=== PATIENT | female | born 1985 | race Hispanic/Latino ===

== ENCOUNTER 2019-10-03 01:07 | Emergency (ER) | payer OTHER, SELFPAY ==
--- NOTE | ~2019-10-03 | XR_ITS ---
EXAMINATION: XR chest 2V DATE: 10/03/2019 01:38 INDICATION: Midline chest pain TECHNIQUE: PA and lateral views of the chest were obtained. COMPARISON: None FINDINGS: The lungs are clear with no focal airspace opacities, pulmonary edema, pleural effusion or pneumothor ax. The cardiomediastinal silhouette is normal. Visualized bones and soft tissues are unremarkable. IMPRESSION: 1. No acute cardiopulmonary disease. Reviewed, dictated and finalized at location A.
--- NOTE | 2019-10-03 01:09 | ECG_ITS ---
Measurements Intervals [place] Rate: 84 P: 30 [place]: 153 QRS: 35 QRSD: 108 T: -6 QT: 375 QTc: 444 Interpretive Statements SINUS RHYTHM BORDERLINE T WAVE ABNORMALITY- INFERIOR LEADS BASELINE WANDER- II, III, AVR, AVL, AVF BORDERLINE ECG Electronically Signed On 10-03-2019 7:21:05 CDT by Enrico Gutierres D.O.
[2019-10-03 01:11] VITALS: BP 151/85; PULSE 83; RESP 21; TEMP 36.8; O2SAT 100
--- NOTE | 2019-10-03 01:12 | ED.CHESTPAIN ---
HPI - Chest Pain General Chief Complaint: Chest Pain Stated Complaint: cp Time Seen by Provider: 10/03/19 01:08 Source: patient and RN notes reviewed Mode of arrival: other Limitations: no limitations History of Present Illness HPI narrative: Pt is a 34 y/o female who presents to the ED with c/o generalized chest pain that began Thursday (09/30/19). Pt states that initially her pain was on the left side of her chest and then migrated to her right side of her chest. Pt states that her pain migrated to her upper chest today. Pt describes her pain as burning. Pt denies any aggravating or alleviating factors. Pt has a hx of anxiety. She denies having a similar episode. Pt also reports nausea, but denies vomiting and dyspnea. MD complaint: chest pain Onset (ago): day(s) (3) Timing of current episode: still present Prior episodes: No Onset: during rest Pain location: other (generalized) Quality: burning Relieving factors: nothing Exacerbating factors: nothing Associated symptoms: nausea Related Data Home Medications Medication Instructions Recorded Confirmed escitalopram oxalate 20 mg tablet 20 mg PO DAILY 06/17/19 Allergies Allergy/AdvReac Type Severity Reaction Status Date / Time NSAIDS (Non-Steroidal Allergy Mild Other Verified 10/03/19 01:15 Anti-Inflamma Review of Systems Review of Systems: All systems reviewed & are unremarkable except as noted in HPI and below Cardiovascular: Cardiovascular: Reports chest pain (generalized) Respiratory: Respiratory: Denies dyspnea Gastrointestinal: Gastrointestinal: Reports nausea and Denies vomiting PMFSH Past Medical History Medical History (Updated 10/03/19 @ 02:09 by Bo Marrero MD) Anemia Anxiety Arthritis delivery delivered x4 Hyperthyroidism Morbid obesity Surgical History Surgical History History of sleeve gastrectomy Social History Social History Smoking status: Never smoker Second hand tobacco smoke exposure: No Alcohol intake: never Substance use: never Substance use type: does not use Gender identity (if verbalized by the patient): Female Exam Const: General: healthy appearing and no acute distress Nutritional Appearance: obese HENMT: Mouth: Yes lip normal and Yes moist mucous membranes Eyes: Conjunctivae: conjunctivae normal Pupils: Equal, round and reactive pupils present Chest: Chest palpation & inspection: no tenderness Resp: Effort & Inspection: normal respiratory effort Auscultation: clear to auscultation bilaterally Cardio: Rate: abnormal rate Rhythm: abnormal rhythm Heart sounds: no murmurs GI: GI Palp: Yes Soft to palpation and No Tenderness to palpation present (GI) Auscultation: normal bowel sounds Back/Spine/Pelvis: Back: other (full ROM) Skin: General skin exam: normal color, dry skin and other (warm) Neuro: General: patient oriented x3 and other (alert) Speech: normal speech Extrem: General: full ROM Psych: Mental Status: mental status grossly normal Affect: Anxious affect present Course Vital Signs Vital signs: Vital Signs Temperature 36.8 C 10/03/19 01:11 Pulse Rate 83 10/03/19 01:11 Respiratory Rate 21 H 10/03/19 01:11 Blood Pressure 151/85 H 10/03/19 01:11 Pulse Oximetry 100 10/03/19 01:11 Temperature 36.8 C 10/03/19 01:11 Pulse Rate 73 10/03/19 02:25 Respiratory Rate 20 10/03/19 02:25 Blood Pressure 116/66 10/03/19 02:25 Pulse Oximetry 100 10/03/19 02:25 MDM - Chest Pain MDM Narrative Medical decision making narrative: Pain is burning in nature. Not exertional. Worse with recumbent position. No SOB. Seems most consistent with GI source. Differential Diagnosis Differential diagnosis: Likely atypical chest pain and other (GERD, indigestion, anxiety) Medical Records Data Attestation: I reviewed the patient's medical recor
[2019-10-03] MEDS: BELLADONNA ALK/PHENOB ELIX 10 ML, MAG HYDROX/ALUMINUM HYD/SIMETH 30 ML, LIDOCAINE HCL 2... PO (01:29)
[2019-10-03] MEDS: PANTOPRAZOLE SODIUM IV 40 MG VIAL IV PUSH (01:29)
[2019-10-03 01:31] VITALS: BP 125/83; PULSE 83; RESP 20; O2SAT 100
[2019-10-03 01:34] LABS: Basophils Percent Auto 0.5 % (0.2-1.2); Eosinophils Absolute Auto 0.1 K/mm3 (0-0.3); Eosinophils Percent Auto 2.1 % (0-4.4); Hematocrit 34.3 % (37.0-47.0); Hemoglobin 10.7 g/dL (12.0-15.0); Immature Granulocyte Absolute 0.02 K/mm3 (0.00-0.031); Immature Granulocyte Percent A 0.3 % (0-0.5); Lymphocytes Absolute Auto 2.79 K/mm3 (0.9-3.2); Lymphocytes Percent Auto 42.1 % (18.3-44.2); Mean Corpuscular HGB Conc 31.2 g/dl (32-36); Mean Corpuscular Volume 76.9 fl (80-100); Mean Platelet Volume 9.8 fl (7.4-10.4); Monocytes Absolute Auto 0.5 K/mm3 (0.1-0.6); Monocytes Percent Auto 7.3 % (2.6-8.5); Neutrophils Absolute Auto 3.2 K/mm3 (1.3-6.7); Neutrophils Percent Auto 47.7 % (45.5-73.1); Platelet Count Result 422 k/mm3 (150-375); Red Blood Count 4.46 M/mm3 (4.2-5.4); Red Cell Distribution Width 17.1 % (11.5-14.5); White Blood Count 6.6 K/mm3 (4.5-10.0)
[2019-10-03 01:44] LABS: Blood Urea Nitrogen 17 mg/dL (7-17); Calcium 9.4 mg/dL (8.4-10.2); Carbon Dioxide 24 mmol/L (22-30); Chloride 107 mmol/L (98-107); Estimated Glomerular Filt Rate > 60; Glucose 90 mg/dL (65-105); Sodium 138 mmol/L (137-145)
[2019-10-03 01:56] LABS: Troponin I < 0.012 ng/mL (0.000-0.034)
[2019-10-03 02:25] VITALS: BP 116/66; PULSE 73; RESP 20; O2SAT 100
== END 2019-10-03 02:26 | disposition home or self-care (01) ==
PROVIDERS: Emergency Provider Emergency Medicine; PCP Family Medicine Sports Medicine
DX: R07.89 Other chest pain (principal); F41.9 Anxiety disorder, unspecified; M19.90 Unspecified osteoarthritis, unspecified site; E05.90 Thyrotoxicosis, unspecified without thyrotoxic crisis or storm; E66.01 Morbid (severe) obesity due to excess calories; Z98.84 Bariatric surgery status; R94.31 Abnormal electrocardiogram [ECG] [EKG]
CPT/HCPCS: 36415; 71046; 80048; 84484; 85025; 93005; 96374; 99284; A9270; C9113

== ENCOUNTER 2019-11-08 13:16 | Outpatient (CLI) | payer OTHER, SELFPAY ==
--- NOTE | 2019-11-08 | ECG_ITS ---
Measurements Intervals [place] Rate: 75 P: 35 [place]: 157 QRS: 66 QRSD: 102 T: 14 QT: 387 QTc: 433 Interpretive Statements SINUS RHYTHM BASELINE ARTIFACT- II, III, AVF NORMAL ECG Electronically Signed On 11-08-2019 13:47:51 CDT by Enrico Gutierres D.O.
[2019-11-08 13:38] LABS: Basophils Absolute Auto 0.1 K/mm3 (0.0-0.1); Basophils Percent Auto 0.8 % (0.2-1.2); Eosinophils Absolute Auto 0.1 K/mm3 (0-0.3); Eosinophils Percent Auto 1.4 % (0-4.4); Hematocrit 34.9 % (37.0-47.0); Hemoglobin 10.7 g/dL (12.0-15.0); Immature Granulocyte Absolute 0.02 K/mm3 (0.00-0.031); Immature Granulocyte Percent A 0.3 % (0-0.5); Lymphocytes Absolute Auto 1.67 K/mm3 (0.9-3.2); Lymphocytes Percent Auto 26.4 % (18.3-44.2); Mean Corpuscular HGB Conc 30.7 g/dl (32-36); Mean Corpuscular Hemoglobin 23.8 pg (26-34); Mean Corpuscular Volume 77.7 fl (80-100); Mean Platelet Volume 9.8 fl (7.4-10.4); Monocytes Absolute Auto 0.5 K/mm3 (0.1-0.6); Monocytes Percent Auto 8.4 % (2.6-8.5); Neutrophils Percent Auto 62.7 % (45.5-73.1); Platelet Count Result 377 k/mm3 (150-375); Red Blood Count 4.49 M/mm3 (4.2-5.4); Red Cell Distribution Width 17.7 % (11.5-14.5); White Blood Count 6.3 K/mm3 (4.5-10.0)
[2019-11-08 13:50] LABS: Alanine Aminotransferase 23 U/L (4-35); Albumin Level 4.4 g/dL (3.5-5.1); Alkaline Phosphatase 77 U/L (38-126); Aspartate Amino Transferase 30 U/L (14-36); Bilirubin,Total 0.2 mg/dL (0.2-1.3); Blood Urea Nitrogen 12 mg/dL (7-17); Calcium 9.2 mg/dL (8.4-10.2); Carbon Dioxide 29 mmol/L (22-30); Chloride 103 mmol/L (98-107); Estimated Glomerular Filt Rate > 60; Glucose 101 mg/dL (65-105); Potassium 4.1 mmol/L (3.4-5.0); Sodium 135 mmol/L (137-145)
[2019-11-08 14:08] LABS: Iron 35 ug/dL (37-170)
[2019-11-08 14:45] LABS: Ferritin 4.45 ng/mL (6.24-137)
== END 2019-11-08 13:17 | disposition home or self-care (01) ==
PROVIDERS: PCP Family Medicine Sports Medicine; Visit Provider Family Medicine Sports Medicine
DX: D64.9 Anemia, unspecified (principal); E66.9 Obesity, unspecified; R73.03 Prediabetes; R07.9 Chest pain, unspecified; R94.31 Abnormal electrocardiogram [ECG] [EKG]
CPT/HCPCS: 36415; 80053; 82728; 83540; 85025; 93005

== ENCOUNTER 2019-12-22 20:48 | Emergency (ER) | payer OTHER, SELFPAY ==
--- NOTE | ~2019-12-22 | CT_ITS ---
EXAMINATION: CT abdomen pelvis wo con DATE: 12/22/2019 21:43 INDICATION: Hematuria. Left lower quadrant abdominal pain. TECHNIQUE: Computed tomography (CT) of the abdomen and pelvis was performed without intravenous contr ast. Automated exposure control and iterative reconstruction technique were employed. The dose-length product was 1680.79 mGy-cm. COMPARISON: None FINDINGS: Lung bases are clear. Heart size is normal. No pericardial or pleural effusion. Postoperative change of prior sleeve gastrectomy with suture line along the greater curvature of the stomach. Diffuse hepa tic steatosis with focal sparing along the gallbladder fossa. Gallbladder, spleen, pancreas and bilat eral adrenal glands are normal. Kidneys and ureters are normal with no urolithiasis, hydroureteroneph rosis or perinephric/ureteral stranding. Appendix is not visualized and postoperative changes at the cecum consistent with prior appendectomy. No abnormal bowel wall thickening or obstruction. Bladder, anteverted uterus and bilateral adnexa are unremarkable. No free intraperitoneal gas or fluid. No pa thologically enlarged abdominal or pelvic lymphadenopathy. Midline infraumbilical postoperative scarr ing. T7 hemangioma. IMPRESSION: 1. No urolithiasis or acute intra-abdominal/pelvic process. 2. Diffuse hepatic steatosis. Reviewed, dictated and finalized at location A.
[2019-12-22 20:54] VITALS: BP 151/107; PULSE 85; RESP 18; TEMP 36.6; O2SAT 100
--- NOTE | 2019-12-22 21:09 | ED.ABDPAIN ---
HPI - Abdominal Pain General Chief Complaint: Abdominal Pain Stated Complaint: LLQ abd pain Time Seen by Provider: 12/22/19 21:09 Source: patient Mode of arrival: ambulatory Limitations: no limitations History of Present Illness HPI narrative: Patient is a 34-year-old female who presents for evaluation of left-sided abdominal pain. Pain is dull, achy, cramping in nature on the left side of the abdomen. Located mostly in the middle part of the abdomen without back pain. No lower pelvic pain. Patient denies fever, but reports nausea and decreased appetite. She reports constipation, dark stools although patient states she does take iron. Patient denies any lightheadedness, dizziness or syncopal events. No chest pain. No recent rhinorrhea, congestion, no diarrhea. No dysuria or hematuria. No vaginal discharge or bleeding Related Data Home Medications Medication Instructions Recorded Confirmed escitalopram oxalate 20 mg tablet 20 mg PO DAILY 06/17/19 Allergies Allergy/AdvReac Type Severity Reaction Status Date / Time NSAIDS (Non-Steroidal Allergy Mild Other Verified 12/22/19 20:59 Anti-Inflamma Review of Systems Review of Systems: Narrative: CONSTITUTIONAL: Denies fever, chills, or sweats. CARDIOVASCULAR: Denies chest pain, palpitations, or edema. RESPIRATORY: Denies cough or dyspnea. GASTROINTESTINAL: Left-sided abdominal pain, nausea GENITOURINARY: Denies dysuria or hematuria. SKIN: Denies rash or itching. MUSCULOSKELETAL: Denies back pain, joint pain, patient reports myalgias NEUROLOGIC: Denies headache, numbness, patient states she feels weak PMFSH Past Medical History Medical History Anemia Anxiety Arthritis delivery delivered x4 Hyperthyroidism Morbid obesity Surgical History Surgical History History of sleeve gastrectomy Family History Family History Unknown No pertinent family history Social History Social History Smoking status: Never smoker Second hand tobacco smoke exposure: No Alcohol intake: never Substance use: never Substance use type: does not use Gender identity (if verbalized by the patient): Female Exam Narrative: Exam Narrative: GENERAL: Awake, alert, conversant HEAD: Normocephalic, atraumatic. EYES: PERRLA and EOMI. ENT: Nares clear, no rhinorrhea or epistaxis. Mucous membranes moist. NECK: Supple. CHEST: No respiratory distress, breathing even and non labored HEART: Regular rate, sinus rhythm ABDOMEN: Obese abdomen, non distended, left lower quadrant tenderness, no rebound or guarding, no suprapubic tenderness, no CVA tenderness EXTREMITIES: Normal range of motion. No edema. SKIN: Warm, dry, no rash. NEURO:No focal deficits. Alert and oriented x3 Course Vital Signs Vital signs: Vital Signs Temperature 36.6 C 12/22/19 20:54 Pulse Rate 85 12/22/19 20:54 Respiratory Rate 18 12/22/19 20:54 Blood Pressure 151/107 H 12/22/19 20:54 Pulse Oximetry 100 12/22/19 20:54 Temperature 36.6 C 12/22/19 20:54 Pulse Rate 85 12/22/19 20:54 Respiratory Rate 18 12/22/19 20:54 Blood Pressure 151/107 H 12/22/19 20:54 Pulse Oximetry 100 12/22/19 20:54 MDM - Abdominal Pain MDM Narrative Medical decision making narrative: Patient's abdomen is soft without significant pain or signs of surgical abdomen on serial exams. Lab and imaging evaluations are reviewed and patient is felt to be a reasonable candidate for outpatient management. No sign of nephrolithiasis, no acute intra-abdominal abnormalities. No UTI. No leukocytosis. No elevation in transaminases or bilirubin that would be suggestive of biliary tract pathology. Patient was instructed as to limitations of imaging and lab evaluation and encouraged to ret
[2019-12-22 21:14] LABS: Basophils Absolute Auto 0.1 K/mm3 (0.0-0.1); Basophils Percent Auto 0.6 % (0.2-1.2); Eosinophils Absolute Auto 0.1 K/mm3 (0-0.3); Eosinophils Percent Auto 0.9 % (0-4.4); Hemoglobin 12.3 g/dL (12.0-15.0); Immature Granulocyte Absolute 0.03 K/mm3 (0.00-0.031); Immature Granulocyte Percent A 0.4 % (0-0.5); Lymphocytes Percent Auto 27.2 % (18.3-44.2); Mean Corpuscular HGB Conc 31.5 g/dl (32-36); Mean Corpuscular Hemoglobin 25.7 pg (26-34); Mean Corpuscular Volume 81.4 fl (80-100); Mean Platelet Volume 9.7 fl (7.4-10.4); Monocytes Absolute Auto 0.6 K/mm3 (0.1-0.6); Monocytes Percent Auto 7.5 % (2.6-8.5); Neutrophils Absolute Auto 5.1 K/mm3 (1.3-6.7); Neutrophils Percent Auto 63.4 % (45.5-73.1); Platelet Count Result 387 k/mm3 (150-375); Red Blood Count 4.79 M/mm3 (4.2-5.4); Red Cell Distribution Width 18.7 % (11.5-14.5); White Blood Count 8.1 K/mm3 (4.5-10.0)
[2019-12-22 21:23] LABS: Add Urine Microscopic? YES; Appearance Urine Clear (Clear); Bacteria Urine Trace /hpf; Bilirubin Urine Negative (Negative); Blood Urine 1+ (Negative); Color Urine Straw (Yellow); Glucose Urine UA Negative (Negative); Ketones Urine Negative (Negative); Leukocyte Esterase Ur Negative LEU/UL (Negative); Mucus Urine Rare /lpf; Nitrate Urine Negative (Negative); Protein Urine Negative (Negative); RBC Urine 0-2 /hpf (0-2); Specific Grav Ur 1.013 (1.001-1.035); Squamous Epithelial Cell Urine Few /hpf (Few); Urobilinogen Urine Negative mg/dL (<2.0); WBC Urine 0-3 /hpf
[2019-12-22 21:29] LABS: Alanine Aminotransferase 17 U/L (4-35); Albumin Level 4.5 g/dL (3.5-5.1); Alkaline Phosphatase 80 U/L (38-126); Aspartate Amino Transferase 21 U/L (14-36); Bilirubin,Total < 0.1 mg/dL (0.2-1.3); Blood Urea Nitrogen 10 mg/dL (7-17); Calcium 9.1 mg/dL (8.4-10.2); Carbon Dioxide 26 mmol/L (22-30); Chloride 105 mmol/L (98-107); Estimated CRCL calculation 94 ml/min; Estimated Glomerular Filt Rate > 60; Glucose 91 mg/dL (65-105); Lipase 90 U/L (23-300); Potassium 3.8 mmol/L (3.4-5.0); Sodium 138 mmol/L (137-145)
[2019-12-22] MEDS: SODIUM CHLORIDE 0.9% IV 1,000 ML 999 ML IV CONT (21:41)
[2019-12-22] MEDS: ONDANSETRON INJ 4 MG/2 ML VIAL IV PUSH (21:41)
[2019-12-22] MEDS: MORPHINE SULFATE 4 MG/ML INJ IV PUSH (21:41)
== END 2019-12-22 22:34 | disposition home or self-care (01) ==
PROVIDERS: Emergency Provider Emergency Medicine; PCP Family Medicine Sports Medicine
DX: R10.9 Unspecified abdominal pain (principal); K59.00 Constipation, unspecified; M19.90 Unspecified osteoarthritis, unspecified site; F41.9 Anxiety disorder, unspecified; E05.90 Thyrotoxicosis, unspecified without thyrotoxic crisis or storm; E66.01 Morbid (severe) obesity due to excess calories; Z68.41 Body mass index [BMI] 40.0-44.9, adult; Z98.84 Bariatric surgery status; Z86.2 Personal history of diseases of the blood and blood-forming organs and certain disorders involving the immune mechanism
CPT/HCPCS: 36415; 74176; 80053; 81001; 81025; 83690; 85025; 96374; 96375; 99284; J0131; J2270; J2405; J7030

== ENCOUNTER 2020-03-08 23:07 | Emergency (ER) | payer OTHER, SELFPAY ==
[2020-03-08 23:11] VITALS: BP 183/83; PULSE 84; RESP 18; TEMP 36.7; O2SAT 100
--- NOTE | 2020-03-08 23:43 | ED.SKABFB ---
HPI - Skin/Abscess/Foreign Bdy General Chief complaint: Skin/Abscess/Foreign Body Stated complaint: Painful lump down below Time Seen by Provider: 03/08/20 23:21 Source: patient Mode of arrival: ambulatory Limitations: no limitations History of Present Illness HPI narrative: This patient is a 34 year old female who presents for evaluation of left labial swelling. PAtient reports she has had swelling for 1 week. She developed severe pain today. She denies nausea, vomiting, fever or drainage. She is only able to talk tylenol for pain and it is not helping her pain. Her emergency department aide is Dr. Patel and she has an appointment next . Related Data Home Medications Medication Instructions Recorded Confirmed sulfamethoxazole-trimethoprim 03/08/20 escitalopram oxalate mg 03/09/20 03/09/20 Allergies Allergy/AdvReac Type Severity Reaction Status Date / Time NSAIDS (Non-Steroidal Allergy Mild Other Verified 03/09/20 00:23 Anti-Inflamma Review of Systems Review of Systems: All systems reviewed & are unremarkable except as noted in HPI and below Constitutional: Constitutional: Denies chills and Denies fever(s) Gastrointestinal: Gastrointestinal: Denies abdominal pain, Denies nausea and Denies vomiting Genitourinary: Genitourinary: Denies abnormal vaginal bleeding and Denies vaginal discharge [facility] Social History Social History Smoking status: Never smoker Second hand tobacco smoke exposure: No Alcohol intake: never Substance use: never Substance use type: does not use Gender identity (if verbalized by the patient): Female Exam Const: General: alert Nutritional Appearance: obese Orientation/consciousness: patient oriented x3 HENMT: Head: normocephalic and atraumatic Face and sinus: face symmetric Eyes: EOM: EOMs intact bilaterally Resp: Effort & Inspection: normal respiratory effort : External Female Exam: externally tender (left labial swelling, minor with tenderness, no drainage) and external swelling Course Vital Signs Vital signs: Vital Signs Temperature 98.1 F 03/08/20 23:11 Pulse Rate 84 03/08/20 23:11 Respiratory Rate 18 03/08/20 23:11 Blood Pressure 183/83 H 03/08/20 23:11 Pulse Oximetry 100 03/08/20 23:11 Temperature 98.1 F 03/08/20 23:11 Pulse Rate 81 03/09/20 01:35 Respiratory Rate 20 03/09/20 01:35 Blood Pressure 110/82 03/09/20 01:35 Pulse Oximetry 97 03/09/20 01:35 Procedures Abscess I/D left labial bartholin cyst: Date of Incision: 03/09/20 Time of Incision: 01:04 Side (if applicable): left Local Anesthetic: lidocaine 2% Amount of anesthesia used (mL): 2 Technique: incised with #11 blade Amount of fluid expressed (mL): 1 Irrigation: Yes Packing used?: Word catheter I&D Results: Pus and Blood Discharge Plan Discharge Clinical Impression: Infected cyst of Bartholin's gland duct Patient Disposition: Home, Self-Care Condition: Stable Instructions: Antibiotic Form, Bartholin Cyst (ED), Incision and Drainage (ED) Additional Instructions: Today you were treated for a bartholin cyst. Perform daily sitz baths. Call your emergency department aide tomorrow for reevaluation . you have a catheter in place to help with drainage. If you develop fever, vomiting or worsening swelling return to ER. Prescriptions: New hydrocodone-acetaminophen [[place]] 5-325 mg tablet 1 tablet PO Q6H PRN (Reason: pain) Qty: 7 RF: 0 No Action sulfamethoxazole-trimethoprim 800-160 mg tablet RF: 0 escitalopram oxalate 10 mg tablet RF: 0 acetaminophen 500 mg capsule 500 mg PO Q6H PRN (Reason: fever or pain) Qty: 30 RF: 0 Follow-up/Referrals: Noris Patel MD [Physician] - [facility],Thang Mcdermott MD [Primary Care Provider] - Discharge Date/Time: 03/09/20 01:54
[2020-03-09] MEDS: ONDANSETRON HCL ODT 4 MG TABLET PO (00:39)
[2020-03-09 01:35] VITALS: BP 110/82; PULSE 81; RESP 20; O2SAT 97
== END 2020-03-09 01:54 | disposition home or self-care (01) ==
PROVIDERS: Emergency Provider General Practice; PCP Family Medicine Sports Medicine
DX: N75.0 Cyst of Bartholin's gland (principal)
CPT/HCPCS: 56420; 99283; A9270

== ENCOUNTER 2020-07-07 00:48 | Emergency (ER) | payer OTHER, MEDICAID, SELFPAY ==
--- NOTE | ~2020-07-07 | CT_ITS ---
EXAMINATION: CT abdomen pelvis w con INDICATION: Abdominal pain TECHNIQUE: Computed tomographic images of the abdomen and pelvis were obtained after the administrati on of 100 cc of Omnipaque 350 intravenous contrast. The dose-length product (DLP) was 1492.46 mGy-cm. Automated exposure control and iterative reconstruction technique were employed. COMPARISON: 12/22/2019 FINDINGS: Minimal dependent atelectasis is present in the lung bases. The heart size is normal. There are surgical changes in the stomach. The liver is diffusely low in attenuation when compared with th e spleen, consistent with hepatic steatosis. The spleen, pancreas, gallbladder, and adrenal glands ar e normal. The kidneys are unremarkable. There are changes of appendectomy. No pathologically enlarged abdominal or pelvic lymph nodes are identified. There is no free intraperitoneal gas or evidence of bowel obstruction. IMPRESSION: 1. No CT correlate for the patient's symptoms. 2. Diffuse hepatic steatosis. Reviewed, dictated and finalized at location A. PEEN OPERATOR
[2020-07-07 00:51] VITALS: BP 141/96; PULSE 83; RESP 12; TEMP 36.7; O2SAT 100
[2020-07-07 01:20] LABS: Basophils Percent Auto 0.5 % (0.2-1.2); Hematocrit 38.8 % (37.0-47.0); Hemoglobin 12.6 g/dL (12.0-15.0); Immature Granulocyte Absolute 0.02 K/mm3 (0.00-0.031); Immature Granulocyte Percent A 0.5 % (0-0.5); Lymphocytes Absolute Auto 1.63 K/mm3 (0.9-3.2); Lymphocytes Percent Auto 42.7 % (18.3-44.2); Mean Corpuscular HGB Conc 32.5 g/dl (32-36); Mean Corpuscular Hemoglobin 27.5 pg (26-34); Mean Corpuscular Volume 84.5 fl (80-100); Mean Platelet Volume 9.9 fl (7.4-10.4); Monocytes Absolute Auto 0.5 K/mm3 (0.1-0.6); Monocytes Percent Auto 13.4 % (2.6-8.5); Neutrophils Absolute Auto 1.6 K/mm3 (1.3-6.7); Neutrophils Percent Auto 41.9 % (45.5-73.1); Platelet Count Result 245 k/mm3 (150-375); Red Blood Count 4.59 M/mm3 (4.2-5.4); Red Cell Distribution Width 17.2 % (11.5-14.5); White Blood Count 3.8 K/mm3 (4.5-10.0)
[2020-07-07 01:34] LABS: Alanine Aminotransferase 27 U/L (4-35); Albumin Level 4.1 g/dL (3.5-5.1); Alkaline Phosphatase 70 U/L (38-126); Anion Gap 8 mmol/L (8-16); Aspartate Amino Transferase 33 U/L (14-36); Bilirubin,Total 0.3 mg/dL (0.2-1.3); Blood Urea Nitrogen 12 mg/dL (7-17); Carbon Dioxide 24 mmol/L (22-30); Chloride 104 mmol/L (98-107); Estimated CRCL calculation 143 ml/min; Estimated Glomerular Filt Rate > 60; Glucose 116 mg/dL (65-105); Lipase 57 U/L (23-300); Potassium 3.9 mmol/L (3.4-5.0); Sodium 136 mmol/L (137-145)
[2020-07-07] MEDS: ONDANSETRON INJ 4 MG/2 ML VIAL IV PUSH (01:41)
[2020-07-07] MEDS: SODIUM CHLORIDE 0.9% IV 1,000 ML 999 ML IV CONT (01:43)
[2020-07-07 02:10] VITALS: BP 127/88; PULSE 62; RESP 15; O2SAT 100
[2020-07-07 02:11] LABS: Add Urine Microscopic? YES; Appearance Urine Cloudy (Clear); Bacteria Urine 2+ /hpf; Bilirubin Urine Negative (Negative); Blood Urine 1+ (Negative); Color Urine Yellow (Yellow); Glucose Urine UA Negative (Negative); Ketones Urine Negative (Negative); Leukocyte Esterase Ur Negative LEU/UL (Negative); Mucus Urine Heavy /lpf; Nitrate Urine Negative (Negative); Protein Urine 1+ mg/dL (Negative); Squamous Epithelial Cell Urine Many /hpf (Few)
[2020-07-07 02:12] LABS: Specific Grav Ur 1.031 (1.001-1.035)
[2020-07-07] MEDS: MORPHINE SULFATE (*CRX) 4 MG/ML INJ IV PUSH (02:59)
--- NOTE | 2020-07-07 03:27 | ED.GENADULT ---
HPI - General Adult General Chief complaint: Abdominal Pain Stated complaint: abd pain, n/v Time Seen by Provider: 07/07/20 01:19 History of Present Illness HPI narrative: Patient is a 35-year-old female who presents emerged part with chief complaint of abdominal pain and headache. The patient reports that her significant other is going to be tested for COVID-19 and she has had a headache some body aches and has had abdominal pain. Patient states she is concerned that she may have Covid but also reports that she has concerns because she has history of a gastric sleeve. Patient states that she is also had prior history of ovarian cyst that was large. Related Data Home Medications Medication Instructions Recorded Confirmed sulfamethoxazole-trimethoprim 03/08/20 escitalopram oxalate mg 03/09/20 03/09/20 Allergies Allergy/AdvReac Type Severity Reaction Status Date / Time NSAIDS (Non-Steroidal Allergy Mild Other Verified 07/07/20 00:56 Anti-Inflamma Review of Systems Review of Systems: Narrative: A 10 system review of systems was completed on the patient and is negative except for what is stated in the HPI. Nursing and ancillary documentation was reviewed. [facility] Past Medical History Medical History (Updated 07/07/20 @ 03:35 by Misael Boswell MD) Anemia Anxiety Arthritis delivery delivered x4 Hyperthyroidism Morbid obesity Surgical History Surgical History History of sleeve gastrectomy Family History Family History Unknown No pertinent family history Social History Social History Smoking status: Never smoker Second hand tobacco smoke exposure: No Alcohol intake: never Substance use: never Substance use type: does not use Gender identity (if verbalized by the patient): Female Exam Narrative: Exam Narrative: GENERAL: Well-appearing, well-nourished, and in no acute distress. HEAD: Normocephalic, atraumatic. EYES: PERRLA and EOMI. ENT: Nares clear, no rhinorrhea or epistaxis. Mucous membranes moist. NECK: Supple. CHEST: Clear to auscultation. No respiratory distress. HEART: Regular rate and rhythm. No murmur heard. Normal peripheral pulses. ABDOMEN: Soft, nontender, nondistended, normal active bowel sounds. EXTREMITIES: Normal range of motion. No edema. SKIN: Warm, dry, no rash. NEURO: No focal deficits. Alert and oriented x3. PSYCH: Normal mood and affect. Course Course Emergency Course: CT scan of the abdomen pelvis showed no acute abnormalities Patient's laboratory studies were unremarkable Patient's urinalysis showed negative nitrite and negative leukocyte esterase but did show 4-6 white blood cells. There were significant epithelial cells is considered to be probably contamination a urine culture has been sent. The patient had requested a COVID-19 test this is been sent on the patient the patient will be instructed to self quarantine until the results of the test are resulted Vital Signs Vital signs: Vital Signs Temperature 36.7 C 07/07/20 00:51 Pulse Rate 83 07/07/20 00:51 Respiratory Rate 12 07/07/20 00:51 Blood Pressure 141/96 H 07/07/20 00:51 Pulse Oximetry 100 07/07/20 00:51 Temperature 36.7 C 07/07/20 00:51 Pulse Rate 83 07/07/20 00:51 Respiratory Rate 12 07/07/20 00:51 Blood Pressure 141/96 H 07/07/20 00:51 Pulse Oximetry 100 07/07/20 00:51 Medical Decision Making Vital Signs Vital Signs: Vital Signs Temperature 36.7 C 07/07/20 00:51 Pulse Rate 83 07/07/20 00:51 Respiratory Rate 12 07/07/20 00:51 Blood Pressure 141/96 H 07/07/20 00:51 Pulse Oximetry 100 07/07/20 00:51 Temperature 36.7 C 07/07/20 00:51 Pulse Rate 83 07/07/20 00:51 Respiratory Rate 12 07/07/20 00:51 Blood Pressure 141/9
[2020-07-07 03:50] VITALS: BP 123/61; PULSE 58; RESP 12; O2SAT 99
[2020-07-07 20:08] LABS: SARS-CoV-2 RNA PCR Positive
== END 2020-07-07 03:50 | disposition home or self-care (01) ==
PROVIDERS: Emergency Provider Emergency Medicine; PCP Family Medicine Sports Medicine
DX: U07.1 COVID-19 (principal); R10.84 Generalized abdominal pain; F41.9 Anxiety disorder, unspecified; M19.90 Unspecified osteoarthritis, unspecified site; E05.90 Thyrotoxicosis, unspecified without thyrotoxic crisis or storm; E66.01 Morbid (severe) obesity due to excess calories; Z68.42 Body mass index [BMI] 45.0-49.9, adult; Z98.84 Bariatric surgery status; Z86.2 Personal history of diseases of the blood and blood-forming organs and certain disorders involving the immune mechanism
CPT/HCPCS: 36415; 74177; 80053; 81001; 81025; 83690; 85025; 96361; 96374; 96375; 99284; C9803; J2270; J2405; J7030; Q9967; U0003

== ENCOUNTER 2020-07-23 16:03 | Outpatient (CLI) | payer OTHER, MEDICAID, SELFPAY ==
--- NOTE | ~2020-07-23 | US_ITS ---
EXAMINATION: US pelvic complete w TV DATE: 07/23/2020 16:55 INDICATION: Left ovarian cysts TECHNIQUE: Multiple transabdominal and endovaginal sonographic images of the pelvis were obtained. COMPARISON: None. FINDINGS: The uterus measures 7.5 x 3.9 x 3.8 cm. Multiple nabothian cysts are noted in the cervix. T he endometrial complex measures 6 mm. The ovaries are not visualized however no adnexal abnormality i s seen. There is no free fluid in the pelvis. IMPRESSION: 1. Ovaries not visualized. No adnexal abnormality seen. Reviewed, dictated and finalized at location A. RECAPPER
== END 2020-07-23 16:04 | disposition home or self-care (01) ==
PROVIDERS: PCP Family Medicine Sports Medicine; Visit Provider Obstetrics & Gynecology
DX: N83.202 Unspecified ovarian cyst, left side (principal)
CPT/HCPCS: 76830; 76856

== ENCOUNTER 2020-09-06 14:08 | Emergency (ER) | payer OTHER, MEDICAID, SELFPAY ==
--- NOTE | ~2020-09-06 | XR_ITS ---
EXAMINATION: XR chest 1V portable EXAM DATE: 09/06/2020 14:52 INDICATION: Shortness of breath x 2 days TECHNIQUE: Portable AP frontal chest x-ray was obtained. Comparison is made to prior examination from 10/03/2019. FINDINGS: The lungs are clear. There are no pleural effusions. The cardiomediastinal silhouette is within normal limits. There is no pneumothorax suspected. The bones and soft tissues are unremarkab le. IMPRESSION: No acute cardiopulmonary findings. Reviewed, dictated and finalized at location A. TZ MOUNTER
[2020-09-06 14:14] VITALS: PULSE 93; RESP 17; TEMP 36.6
--- NOTE | 2020-09-06 14:27 | ECG_ITS ---
Measurements Intervals [place] Rate: 87 P: 16 [place]: 147 QRS: 32 QRSD: 94 T: 4 QT: 368 QTc: 444 Interpretive Statements SINUS RHYTHM BORDERLINE ST-T WAVE ABNORMALITY- INFERIOR LEADS BASELINE ARTIFACT- I, III, AVL, V6 BORDERLINE ECG Electronically Signed On 09-06-2020 14:34:21 PHARMACY ANALYST by Enrico Gutierres D.O.
--- NOTE | 2020-09-06 14:31 | ED.GENADULT ---
HPI - General Adult General Chief complaint: Dizziness Stated complaint: dizzy x 1wk Time Seen by Provider: 09/06/20 14:10 Source: patient and old records reviewed Mode of arrival: ambulatory Limitations: no limitations History of Present Illness HPI narrative: Patient is a 35-year-old female who presents to emergency department for evaluation of anxiety over her left breast discomfort for the last week that radiates to the back which began today patient also notes feeling dizzy over the course of the week patient with history of anxiety has been to the ER with chest pain in the past for various different reasons. Patient on arrival in no distress but does become tearful upon interviewing the patient Related Data Allergies Allergy/AdvReac Type Severity Reaction Status Date / Time NSAIDS (Non-Steroidal Allergy Mild Other Verified 09/06/20 14:14 Anti-Inflamma Review of Systems Review of Systems: All systems reviewed & are unremarkable except as noted in HPI and below PMFSH Past Medical History Medical History (Updated 09/06/20 @ 15:26 by Bharathi Oseguera PA-C) Anemia Anxiety Arthritis delivery delivered x4 Hyperthyroidism Morbid obesity Surgical History Surgical History History of sleeve gastrectomy Family History Family History Unknown No pertinent family history Social History Social History Smoking status: Never smoker Second hand tobacco smoke exposure: No Alcohol intake: never Substance use: never Substance use type: does not use Gender identity (if verbalized by the patient): Female Course Course Emergency Course: Patient in the room no distress felt appropriate for discharge home will follow with primary care for further evaluation and discussion of anxiety and breast pain patient felt appropriate for outpatient reevaluation hemodynamically stable Vital Signs Vital signs: Vital Signs Temperature 97.8 F 09/06/20 14:14 Pulse Rate 93 09/06/20 14:14 Respiratory Rate 17 09/06/20 14:14 Temperature 97.8 F 09/06/20 14:14 Pulse Rate 74 09/06/20 14:33 Respiratory Rate 15 09/06/20 14:33 Blood Pressure 134/78 09/06/20 14:33 Pulse Oximetry 99 09/06/20 14:33 Medical Decision Making MDM Narrative Medical decision making narrative: Patient in the room with dizziness breast pain and back pain will follow with primary care for further evaluation as well as gynecology felt appropriate for outpatient reevaluation no high risk changes of the blood work or imaging Vital Signs Vital Signs: Vital Signs Temperature 97.8 F 09/06/20 14:14 Pulse Rate 93 09/06/20 14:14 Respiratory Rate 17 09/06/20 14:14 Temperature 97.8 F 09/06/20 14:14 Pulse Rate 74 09/06/20 14:33 Respiratory Rate 15 09/06/20 14:33 Blood Pressure 134/78 09/06/20 14:33 Pulse Oximetry 99 09/06/20 14:33 Lab Data Result diagrams: 09/06/20 14:32 09/06/20 14:32 Labs: Lab Results 09/06/20 09/06/20 Range/Units 14:32 14:32 WBC 7.2 (4.5-10.0) K/mm3 RBC 4.53 (4.2-5.4) M/mm3 Hgb 12.5 (12.0-15.0) g/dL Hct 37.6 (37.0-47.0) % MCV 83.0 (80-100) fl MCH 27.6 (26-34) pg MCHC 33.2 (32-36) g/dl RDW 14.2 (11.5-14.5) % Plt Count 292 (150-375) k/mm3 MPV 9.8 (7.4-10.4) fl Immature Gran % (Auto) 0.3 (0-0.5) % Neut % (Auto) 67.6 (45.5-73.1) % Lymph % (Auto) 23.9 (18.3-44.2) % [place] % (Auto) 6.8 (2.6-8.5) % Eos % (Auto) 0.7 (0-4.4) % Baso % (Auto) 0.7 (0.2-1.2) % Lymph # (Auto) 1.73 (0.9-3.2) K/mm3 [place] # (Auto) 0.5 (0.1-0.6) K/mm3 Eos # (Auto) 0.1 (0-0.3) K/mm3 Baso # (Auto) 0.1 (0.0-0.1) K/mm3 Abs Immat Gran (auto) 0.02 (0.00-0.031) K/mm3 Absolute Neuts (auto) 4.9 (1.3-6.7) K/mm3 Abs
[2020-09-06 14:33] VITALS: BP 134/78; PULSE 74; RESP 15; O2SAT 99
[2020-09-06 14:47] LABS: Basophils Absolute Auto 0.1 K/mm3 (0.0-0.1); Basophils Percent Auto 0.7 % (0.2-1.2); Eosinophils Absolute Auto 0.1 K/mm3 (0-0.3); Eosinophils Percent Auto 0.7 % (0-4.4); Hematocrit 37.6 % (37.0-47.0); Hemoglobin 12.5 g/dL (12.0-15.0); Immature Granulocyte Absolute 0.02 K/mm3 (0.00-0.031); Immature Granulocyte Percent A 0.3 % (0-0.5); Lymphocytes Absolute Auto 1.73 K/mm3 (0.9-3.2); Lymphocytes Percent Auto 23.9 % (18.3-44.2); Mean Corpuscular HGB Conc 33.2 g/dl (32-36); Mean Corpuscular Hemoglobin 27.6 pg (26-34); Mean Platelet Volume 9.8 fl (7.4-10.4); Monocytes Absolute Auto 0.5 K/mm3 (0.1-0.6); Monocytes Percent Auto 6.8 % (2.6-8.5); Neutrophils Absolute Auto 4.9 K/mm3 (1.3-6.7); Neutrophils Percent Auto 67.6 % (45.5-73.1); Platelet Count Result 292 k/mm3 (150-375); Red Blood Count 4.53 M/mm3 (4.2-5.4); Red Cell Distribution Width 14.2 % (11.5-14.5); White Blood Count 7.2 K/mm3 (4.5-10.0)
[2020-09-06 14:54] LABS: Alanine Aminotransferase 18 U/L (4-35); Albumin Level 4.5 g/dL (3.5-5.1); Alkaline Phosphatase 78 U/L (38-126); Anion Gap 9 mmol/L (8-16); Aspartate Amino Transferase 25 U/L (14-36); Bilirubin,Total 0.3 mg/dL (0.2-1.3); Blood Urea Nitrogen 9 mg/dL (7-17); Calcium 9.2 mg/dL (8.4-10.2); Carbon Dioxide 23 mmol/L (22-30); Chloride 107 mmol/L (98-107); Estimated CRCL calculation 116 ml/min; Estimated Glomerular Filt Rate > 60; Glucose 87 mg/dL (65-105); Potassium 3.9 mmol/L (3.4-5.0); Sodium 139 mmol/L (137-145)
[2020-09-06] MEDS: LORazepam INJ (*CRX) 2 MG/ML VIAL 1 MG IV PUSH (14:54)
[2020-09-06 15:36] VITALS: BP 132/68; PULSE 80; RESP 18; O2SAT 98
== END 2020-09-06 15:37 | disposition home or self-care (01) ==
PROVIDERS: Emergency Medicine Emergency Medical Services; Emergency Provider Emergency Medicine; PCP Family Medicine Sports Medicine
DX: N64.4 Mastodynia (principal); M19.90 Unspecified osteoarthritis, unspecified site; E05.90 Thyrotoxicosis, unspecified without thyrotoxic crisis or storm; E66.01 Morbid (severe) obesity due to excess calories; Z68.41 Body mass index [BMI] 40.0-44.9, adult; Z98.84 Bariatric surgery status; Z86.2 Personal history of diseases of the blood and blood-forming organs and certain disorders involving the immune mechanism; R94.31 Abnormal electrocardiogram [ECG] [EKG]
CPT/HCPCS: 36415; 71045; 80053; 85025; 93005; 96374; 99284; J2060

== ENCOUNTER 2020-10-10 17:23 | Emergency (ER) | payer MEDICAID, SELFPAY ==
--- NOTE | ~2020-10-10 | CT_ITS ---
EXAMINATION: CT abdomen pelvis w con INDICATION: Abdominal pain TECHNIQUE: Computed tomographic images of the abdomen and pelvis were obtained after the administrati on of 100 cc of Omnipaque 350 intravenous contrast. The dose-length product (DLP) was 1362.68 mGy-cm. Automated exposure control and iterative reconstruction technique were employed. COMPARISON: 07/07/2020 FINDINGS: The lung bases are clear. The heart size is normal. Surgical changes in the stomach are lik nilesh related to weight loss surgery. The liver, spleen, pancreas, gallbladder, and adrenal glands are normal. The kidneys are unremarkable. No stones are identified in the kidneys, ureters, or bladder. T here is no hydronephrosis or hydroureter. No pathologically enlarged abdominal or pelvic lymph nodes are identified. There is no free intraperitoneal gas or evidence of bowel obstruction. The appendix i s surgically absent. IMPRESSION: 1. No CT correlate for the patient's symptoms. Reviewed, dictated and finalized at location A.
[2020-10-10 17:25] VITALS: BP 142/95; PULSE 88; RESP 16; TEMP 36.4; O2SAT 100
--- NOTE | 2020-10-10 17:49 | ED.FEMALEGU ---
HPI - Female Genitourinary General Chief complaint: Abdominal Pain Stated complaint: pelvic pain Time Seen by Provider: 10/10/20 17:39 History of Present Illness HPI Narrative: Vaginal pain for the past several days. Increasing in severity. Feels like it is on the inside. She has seen her OB and a urologist since the pain started. She reports that thye found a small amount of blood in her urine and that she had a post void residual of 100 ml. No discharge, bleeding, sores. Related Data Allergies Allergy/AdvReac Type Severity Reaction Status Date / Time NSAIDS (Non-Steroidal AdvReac Mild Other Verified 10/10/20 17:29 Anti-Inflamma Review of Systems Review of Systems: All systems reviewed & are unremarkable except as noted in HPI and below Constitutional: Constitutional: Reports no additional constitutional complaints Eyes: Eyes: Reports no additional eye complaints ENT: Reports system reviewed and no additional complaints, except as documented Cardiovascular: Cardiovascular: Denies chest pain Respiratory: Respiratory: Denies dyspnea Gastrointestinal: Gastrointestinal: Denies abdominal pain, Denies nausea and Denies vomiting Genitourinary: Genitourinary: Reports hematuria and Reports nocturia Neurologic: Reports system reviewed and no additional complaints, except as documented [facility] Past Medical History Medical History (Updated 10/11/20 @ 00:00 by Background Daemon) Anemia Anxiety Arthritis delivery delivered x4 Hyperthyroidism Morbid obesity Surgical History Surgical History History of sleeve gastrectomy Family History Family History Unknown No pertinent family history Social History Social History Smoking status: Never smoker Second hand tobacco smoke exposure: No Alcohol intake: never Substance use: never Substance use type: does not use Gender identity (if verbalized by the patient): Female Exam Const: General: no acute distress and alert Nutritional Appearance: obese Orientation/consciousness: patient oriented x3 HENMT: Head: normal to inspection Eyes: Pupils: Equal, round and reactive pupils present Neck: Neck: normal visual inspection Resp: Effort & Inspection: normal respiratory effort Auscultation: clear to auscultation bilaterally Cardio: Rate: regular rate Rhythm: regular rhythm GI: GI Palp: Yes Soft to palpation and No Tenderness to palpation present (GI) : External Female Exam: normal external appearance Speculum Exam - Vagina: normal vaginal discharge Speculum Exam - Cervix: normal appearance of the cervix Skin: General skin exam: normal color Neuro: General: patient oriented x3, moves all extremities, no focal motor deficits and CN's II-XI intact bilaterally Extrem: General: normal to inspection Course Vital Signs Vital signs: Vital Signs Temperature 36.4 C 10/10/20 17:25 Pulse Rate 88 10/10/20 17:25 Respiratory Rate 16 10/10/20 17:25 Blood Pressure 142/95 H 10/10/20 17:25 Pulse Oximetry 100 10/10/20 17:25 Temperature 36.4 C 10/10/20 17:25 Pulse Rate 87 10/10/20 20:21 Respiratory Rate 16 10/10/20 20:21 Blood Pressure 137/89 10/10/20 20:21 Pulse Oximetry 100 10/10/20 20:21 MDM - Female Genitourinary MDM Narrative Medical decision making narrative: Exam normal. She has already seen specialist, so I am not confident that I will be the one to figure this out. Could potentially be a low kidney stone. Seems unlikely, but I will obtain a CT to rule it out. Differential Diagnosis Differential diagnosis: Likely urinary tract infection, bacterial vaginosis and other (kidney stone) Medical Records Attestation: I reviewed the patient's medical records. Lab Data Attestation: I reviewed the patient's lab results. Result diagrams:
[2020-10-10 19:00] LABS: Estimated CRCL calculation 114 ml/min; Estimated Glomerular Filt Rate > 60
[2020-10-10 19:47] LABS: Add Urine Microscopic? YES; Appearance Urine Clear (Clear); Bilirubin Urine Negative (Negative); Blood Urine Negative (Negative); Color Urine Amber (Yellow); Glucose Urine UA Negative (Negative); Ketones Urine Trace mg/dL (Negative); Leukocyte Esterase Ur Negative LEU/UL (Negative); Mucus Urine Rare /lpf; Nitrate Urine Positive (Negative); Protein Urine Negative (Negative); RBC Urine 0-2 /hpf (0-2); Specific Grav Ur 1.021 (1.001-1.035); Squamous Epithelial Cell Urine Rare /hpf (Few); WBC Urine 0-3 /hpf
[2020-10-10] MEDS: NITROFURANTOIN MONOHYD MACROCR 100 MG CAP PO (20:04)
[2020-10-10 20:21] VITALS: BP 137/89; PULSE 87; RESP 16; O2SAT 100
== END 2020-10-10 20:31 | disposition home or self-care (01) ==
PROVIDERS: Emergency Medicine; Emergency Provider Emergency Medicine; PCP Nurse Practitioner Adult Health
DX: N39.0 Urinary tract infection, site not specified (principal); M19.90 Unspecified osteoarthritis, unspecified site; E05.90 Thyrotoxicosis, unspecified without thyrotoxic crisis or storm; Z98.84 Bariatric surgery status; Z86.2 Personal history of diseases of the blood and blood-forming organs and certain disorders involving the immune mechanism; E66.01 Morbid (severe) obesity due to excess calories; Z68.41 Body mass index [BMI] 40.0-44.9, adult
CPT/HCPCS: 74177; 81001; 81025; 99284; A9270; Q9967

== ENCOUNTER 2021-01-24 10:41 | Outpatient (CLI) | payer OTHER, SELFPAY ==
--- NOTE | ~2021-01-24 | XR_ITS ---
EXAMINATION: XR lumbar spine 2-3V DATE: 01/24/2021 11:19 INDICATION: Unspecified injury of the lower back, back pain TECHNIQUE: Anteroposterior and lateral views of the lumbar spine, and cone-down lateral view of the l umbosacral junction were obtained. COMPARISON: None. FINDINGS: There is no fracture, dislocation, or subluxation. The vertebral body heights, alignment, a nd intervertebral disc spaces are normal. The paravertebral soft tissues are unremarkable. IMPRESSION: 1. No acute osseous abnormality. Reviewed, dictated and finalized at location B.
== END 2021-01-24 10:42 | disposition home or self-care (01) ==
PROVIDERS: PCP Nurse Practitioner Adult Health; Visit Provider Nurse Practitioner Adult Health
DX: S39.92XA Unspecified injury of lower back, initial encounter (principal); X58.XXXA Exposure to other specified factors, initial encounter
CPT/HCPCS: 72100

== ENCOUNTER 2021-03-06 09:23 | Outpatient (CLI) | payer OTHER, SELFPAY ==
[2021-03-06 10:07] LABS: Basophils Percent Auto 0.5 % (0.2-1.2); Eosinophils Absolute Auto 0.1 K/mm3 (0-0.3); Hematocrit 34.6 % (37.0-47.0); Hemoglobin 10.1 g/dL (12.0-15.0); Immature Granulocyte Absolute 0.02 K/mm3 (0.00-0.031); Immature Granulocyte Percent A 0.3 % (0-0.5); Lymphocytes Absolute Auto 1.51 K/mm3 (0.9-3.2); Lymphocytes Percent Auto 26.2 % (18.3-44.2); Mean Corpuscular HGB Conc 29.2 g/dl (32-36); Mean Corpuscular Hemoglobin 22.6 pg (26-34); Mean Corpuscular Volume 77.4 fl (80-100); Mean Platelet Volume 9.3 fl (7.4-10.4); Monocytes Absolute Auto 0.5 K/mm3 (0.1-0.6); Monocytes Percent Auto 8.7 % (2.6-8.5); Neutrophils Absolute Auto 3.7 K/mm3 (1.3-6.7); Neutrophils Percent Auto 63.3 % (45.5-73.1); Platelet Count Result 369 k/mm3 (150-375); Red Blood Count 4.47 M/mm3 (4.2-5.4); Red Cell Distribution Width 16.7 % (11.5-14.5); White Blood Count 5.8 K/mm3 (4.5-10.0)
[2021-03-06 12:31] LABS: Iron < 10 ug/dL (37-170)
[2021-03-06 13:08] LABS: Folic Acid 7.1 ng/mL (2.76->20)
[2021-03-06 13:11] LABS: Ferritin 4.64 ng/mL (6.24-137)
[2021-03-06 14:23] LABS: Percent Iron Saturation < 2 % (20-50)
== END 2021-03-06 09:24 | disposition home or self-care (01) ==
PROVIDERS: PCP Nurse Practitioner Adult Health; Visit Provider Nurse Practitioner Adult Health
DX: D64.9 Anemia, unspecified (principal)
CPT/HCPCS: 36415; 82607; 82728; 82746; 83540; 83550; 85025

== ENCOUNTER 2021-03-13 11:00 | Outpatient (CLI) | payer OTHER, SELFPAY ==
[2021-03-13 12:59] LABS: Immunochemical Fecal Occult Bl Negative (N)
[2021-03-13 13:00] LABS: IFOB Positive Control Positive
== END 2021-03-13 11:01 | disposition home or self-care (01) ==
PROVIDERS: PCP Nurse Practitioner Adult Health; Visit Provider Nurse Practitioner Adult Health
DX: D64.9 Anemia, unspecified (principal)
CPT/HCPCS: 82274

== ENCOUNTER 2021-03-27 11:16 | Emergency (ER) | payer OTHER, SELFPAY ==
[2021-03-27] VITALS (23 sets, daily range): BP systolic 119–152; BP diastolic 70–101; PULSE 70–97; RESP 12–20; TEMP 36.9; O2SAT 97–100
[2021-03-27] MEDS: LORazepam INJ (*CRX) 2 MG/ML VIAL 1 MG IV PUSH (12:21)
--- NOTE | 2021-03-27 13:29 | ED.GENADULT ---
HPI - General Adult General Chief complaint: Anxiety <Bharathi Oseguera PA-C - Last Filed: 03/27/21 13:33> Stated complaint: Panic attack <Bharathi Oseguera PA-C - Last Filed: 03/27/21 13:33> Time Seen by Provider: 03/27/21 11:37 <Bharathi Oseguera PA-C - Last Filed: 03/27/21 13:33> Source: patient <Bharathi Oseguera PA-C - Last Filed: 03/27/21 13:33> Mode of arrival: ambulatory <Bharathi Oseguera PA-C - Last Filed: 03/27/21 13:33> Limitations: no limitations <Bharathi Oseguera PA-C - Last Filed: 03/27/21 13:33> History of Present Illness HPI narrative: Patient is a 35-year-old female who presents with panic attack patient notes she was feeling her left breast today when she felt what she thought was a mass causing her to have panic attack patient has follow-up with gynecology in the near future to denies similar occurrence in the past notes that she had felt fine prior to palpation of what she believed to be a mass in the left breast around the areola denies injury trauma similar occurrence in the past or recent illness has history of anxiety <Bharathi Oseguera PA-C - Last Filed: 03/27/21 13:33> Related Data Home medications: Home Medications Medication Instructions Recorded Confirmed sertraline 50 mg tablet 50 mg PO DAILY 12/14/20 12/17/20 <Bharathi Oseguera PA-C - Last Filed: 03/27/21 13:33> Allergies/adverse reactions: Allergies Allergy/AdvReac Type Severity Reaction Status Date / Time NSAIDS (Non-Steroidal AdvReac Mild Other Verified 12/17/20 08:57 Anti-Inflamma <Bharathi Oseguera PA-C - Last Filed: 03/27/21 13:33> Review of Systems Review of Systems: All systems reviewed & are unremarkable except as noted in HPI and below <Bharathi Oseguera PA-C - Last Filed: 03/27/21 13:33> PMFSH Past Medical History Medical History: Medical History Anemia Anxiety Arthritis GERD (gastroesophageal reflux disease) Hyperthyroidism Morbid obesity <Bharathi Oseguera PA-C - Last Filed: 03/27/21 13:33> Surgical History Surgical History: Surgical History delivery delivered x4 H/O tubal ligation 2012 History of sleeve gastrectomy 2015 <Bharathi Oseguera PA-C - Last Filed: 03/27/21 13:33> Family History Family History: Family History Unknown No pertinent family history <Bhaarthi Oseguera PA-C - Last Filed: 03/27/21 13:33> Social History Social History: Social History Smoking status: Never smoker Second hand tobacco smoke exposure: No Alcohol intake: never Substance use: never Substance use type: does not use Gender identity (if verbalized by the patient): Female <Bharathi Oseguera PA-C - Last Filed: 03/27/21 13:33> Exam Narrative: GENERAL: Well-appearing, well-nourished, and in no acute distress. HEAD: Normocephalic, atraumatic. EYES: PERRLA and EOMI. ENT: Nares clear, no rhinorrhea or epistaxis. Mucous membranes moist. CHEST: Clear to auscultation. No respiratory distress. No wheezes rales or rhonchi HEART: Regular rate and rhythm. No murmur heard. Normal peripheral pulses. BREASTS: Patient with tenderness under the areola without appreciable mass detected no other deformities of the breast bilaterally ABDOMEN: Soft, nontender, nondistended EXTREMITIES: Normal range of motion. No edema. SKIN: Warm, dry, no rash. NEURO: No focal deficits. Alert and oriented x3. PSYCH: Acutely anxious normal affect <Bharathi Oseguera PA-C - Last Filed: 03/27/21 13:33> Course Course Emergency Course: Patient evaluated the emergency department for anxiety and breast discomfort patient advised to follow with gynecology given reasons to return no other signs of infection or concerning fin
== END 2021-03-27 14:06 | disposition home or self-care (01) ==
PROVIDERS: Emergency Provider General Practice; PCP Nurse Practitioner Adult Health
DX: N64.4 Mastodynia (principal); F41.9 Anxiety disorder, unspecified; M19.90 Unspecified osteoarthritis, unspecified site; K21.9 Gastro-esophageal reflux disease without esophagitis; E66.01 Morbid (severe) obesity due to excess calories; Z68.42 Body mass index [BMI] 45.0-49.9, adult; E05.90 Thyrotoxicosis, unspecified without thyrotoxic crisis or storm; Z98.84 Bariatric surgery status
CPT/HCPCS: 96374; 99284; J2060

== ENCOUNTER 2021-03-28 13:58 | Outpatient (CLI) | payer OTHER, SELFPAY ==
[2021-03-28 14:14] LABS: Basophils Absolute Auto 0.1 K/mm3 (0.0-0.1); Basophils Percent Auto 0.8 % (0.2-1.2); Eosinophils Absolute Auto 0.1 K/mm3 (0-0.3); Eosinophils Percent Auto 0.8 % (0-4.4); Hematocrit 38.9 % (37.0-47.0); Hemoglobin 11.9 g/dL (12.0-15.0); Immature Granulocyte Absolute 0.03 K/mm3 (0.00-0.031); Immature Granulocyte Percent A 0.5 % (0-0.5); Immature Reticulocyte Fraction 9.1 % (3.0-15.9); Lymphocytes Absolute Auto 1.79 K/mm3 (0.9-3.2); Lymphocytes Percent Auto 28.4 % (18.3-44.2); Mean Corpuscular HGB Conc 30.6 g/dl (32-36); Mean Corpuscular Hemoglobin 23.9 pg (26-34); Mean Corpuscular Volume 78.3 fl (80-100); Mean Platelet Volume 8.9 fl (7.4-10.4); Monocytes Absolute Auto 0.4 K/mm3 (0.1-0.6); Monocytes Percent Auto 6.5 % (2.6-8.5); Platelet Count Result 374 k/mm3 (150-375); Red Blood Count 4.97 M/mm3 (4.2-5.4); Reticulocyte Hemoglobin Conten 30.6 pg (28.2-35.7); Reticulocyte Percent 1.76 % (0.7-4.3); Reticulocytes Absolute 0.09 B/L (32.2-175.7); White Blood Count 6.3 K/mm3 (4.5-10.0)
[2021-03-28 16:32] LABS: Iron 24 ug/dL (37-170)
[2021-03-28 16:35] LABS: Alanine Aminotransferase 22 U/L (4-35); Albumin Level 4.8 g/dL (3.5-5.1); Alkaline Phosphatase 85 U/L (38-126); Anion Gap 11 mmol/L (8-16); Aspartate Amino Transferase 41 U/L (14-36); Bilirubin,Total 0.3 mg/dL (0.2-1.3); Blood Urea Nitrogen 15 mg/dL (7-17); Calcium 9.5 mg/dL (8.4-10.2); Carbon Dioxide 25 mmol/L (22-30); Chloride 105 mmol/L (98-107); Estimated Glomerular Filt Rate > 60; Glucose 79 mg/dL (65-110); Potassium 4.2 mmol/L (3.4-5.0); Sodium 141 mmol/L (137-145)
[2021-03-28 16:42] LABS: Percent Iron Saturation 6 % (20-50)
[2021-03-28 17:42] LABS: Folic Acid 11.2 ng/mL (2.76->20)
[2021-04-02 07:41] LABS: Methylmalonic Acid 163 nmol/L (87-318)
== END 2021-03-28 13:59 | disposition home or self-care (01) ==
LOC: ANHLAB 14:02
PROVIDERS: PCP Nurse Practitioner Adult Health; Visit Provider Internal Medicine Hematology & Oncology
DX: D50.9 Iron deficiency anemia, unspecified (principal)
CPT/HCPCS: 36415; 80053; 82607; 82728; 82746; 83540; 83550; 83921; 85025; 85046

== ENCOUNTER 2021-08-05 13:23 | Outpatient (CLI) | payer OTHER, SELFPAY ==
--- NOTE | ~2021-08-05 | US_ITS ---
EXAMINATION: US thyroid EXAM DATE: 08/05/2021 15:40 INDICATION: Nontoxic goiter. TECHNIQUE: Multiple grayscale and Doppler images of the thyroid were obtained (by a technologist who performed the scan) and subsequently reviewed. Individual nodules and recommendations may be reporte d in accordance with TI-RADS system as designated by the 2017 ACR White Paper TI-RADS committee. The re is no prior study for comparison. FINDINGS: The right thyroid lobe measures 5.4 x 1.7 x 1.4 cm, the left measuring 4.5 x 1.3 x 1.6 cm. There is d iffusely heterogeneous thyroid echogenicity and mildly increased vascularity. No focal suspicious thy roid nodule was measured within this. IMPRESSION: 1. Mild thyromegaly. Reviewed, dictated and finalized at location G. T ROCK TAPER IMPRESSION: 1. Mild thyromegaly.
[2021-08-05 14:21] LABS: Basophils Percent Auto 0.6 % (0.2-1.2); Eosinophils Absolute Auto 0.1 K/mm3 (0-0.3); Eosinophils Percent Auto 1.4 % (0-4.4); Hematocrit 41.1 % (37.0-47.0); Hemoglobin 13.5 g/dL (12.0-15.0); Immature Granulocyte Absolute 0.01 K/mm3 (0.00-0.031); Immature Granulocyte Percent A 0.2 % (0-0.5); Lymphocytes Absolute Auto 2.05 K/mm3 (0.9-3.2); Mean Corpuscular HGB Conc 32.8 g/dl (32-36); Mean Corpuscular Hemoglobin 29.3 pg (26-34); Mean Corpuscular Volume 89.3 fl (80-100); Mean Platelet Volume 9.8 fl (7.4-10.4); Monocytes Absolute Auto 0.4 K/mm3 (0.1-0.6); Monocytes Percent Auto 6.4 % (2.6-8.5); Neutrophils Absolute Auto 3.8 K/mm3 (1.3-6.7); Neutrophils Percent Auto 59.4 % (45.5-73.1); Platelet Count Result 291 k/mm3 (150-375); Red Cell Distribution Width 14.3 % (11.5-14.5); White Blood Count 6.4 K/mm3 (4.5-10.0)
[2021-08-05 14:39] LABS: Iron 70 ug/dL (37-170)
[2021-08-05 14:49] LABS: Percent Iron Saturation 21 % (20-50)
[2021-08-05 15:34] LABS: Folic Acid 9.4 ng/mL (2.76->20)
== END 2021-08-05 13:24 | disposition home or self-care (01) ==
PROVIDERS: Referring Provider Internal Medicine Hematology & Oncology; Visit Provider Internal Medicine Endocrinology, Diabetes & Metabolism
DX: D50.9 Iron deficiency anemia, unspecified (principal); E04.9 Nontoxic goiter, unspecified
CPT/HCPCS: 36415; 76536; 82607; 82728; 82746; 83540; 83550; 85025

== ENCOUNTER 2021-08-20 15:51 | Emergency (ER) | payer OTHER, SELFPAY ==
[2021-08-20 15:54] VITALS: BP 132/79; PULSE 81; RESP 18; TEMP 36.8; O2SAT 100
--- NOTE | 2021-08-20 17:32 | ED.SKABFB ---
HPI - Skin/Abscess/Foreign Bdy General Chief complaint: Skin/Abscess/Foreign Body Stated complaint: L arm pain/lump Time Seen by Provider: 08/20/21 17:25 History of Present Illness HPI narrative: Patient reports lump in left antecubital for over 4 weeks. Lump is not painful unless she flexes her elbow, which then causes intermittent paraesthesias distally in her hand. Denies injury/trauma Related Data Home Medications Medication Instructions Recorded Confirmed sertraline 50 mg tablet 50 mg PO DAILY 12/14/20 04/18/21 Allergies Allergy/AdvReac Type Severity Reaction Status Date / Time NSAIDS (Non-Steroidal AdvReac Mild Other Verified 04/18/21 08:55 Anti-Inflamma Review of Systems Review of Systems: CONSTITUTIONAL: Denies fever, chills, or sweats. EYES: Denies visual changes, redness, or discharge. ENT: Denies rhinorrhea, congestion, sore throat, or otalgia. CARDIOVASCULAR: Denies chest pain, palpitations, or edema. RESPIRATORY: Denies cough or dyspnea. GASTROINTESTINAL: Denies abdominal pain, nausea, vomiting, or diarrhea. GENITOURINARY: Denies dysuria or hematuria. SKIN: Denies rash or itching. MUSCULOSKELETAL: Denies back pain, joint pain, or myalgia. NEUROLOGIC: Denies headache, numbness, dizziness, or weakness. PSYCHIATRIC: Denies anxiety or depression. [facility] Past Medical History Medical History Anemia Anxiety Arthritis GERD (gastroesophageal reflux disease) Hyperthyroidism Morbid obesity Surgical History Surgical History delivery delivered x4 H/O tubal ligation 2013 History of sleeve gastrectomy 2016 Family History Family History Unknown No pertinent family history Social History Social History Smoking status: Never smoker Second hand tobacco smoke exposure: No Alcohol intake: never Substance use: never Substance use type: does not use Gender identity (if verbalized by the patient): Female Spiritual care concerns: No Exam Narrative: GENERAL: Well-appearing, well-nourished, and in no acute distress. HEAD: Normocephalic, atraumatic. EYES: PERRLA and EOMI. ENT: Nares clear, no rhinorrhea or epistaxis. Mucous membranes moist. Oropharynx without tonsillar hypertrophy exudate or other lesions. Bilateral TMs pearly hyatt nonbulging NECK: Supple. No adenopathy or masses. No carotid bruits or JVD CHEST: Clear to auscultation. No respiratory distress. No wheezes rales or rhonchi HEART: Regular rate and rhythm. No murmur heard. Normal peripheral pulses. ABDOMEN: Soft, nontender, nondistended, normal active bowel sounds. EXTREMITIES: Normal range of motion. No edema. SKIN: Warm, dry, no rash. NEURO: No focal deficits. Alert and oriented x3. PSYCH: Normal mood and affect. Skin: Other: left antecubital: non-erythematous, non-mobile indurated area; no drainage, no swelling Course Vital Signs Vital signs: Vital Signs Temperature 36.8 C 08/20/21 15:54 Pulse Rate 81 08/20/21 15:54 Respiratory Rate 18 08/20/21 15:54 Blood Pressure 132/79 08/20/21 15:54 Pulse Oximetry 100 08/20/21 15:54 Temperature 36.8 C 08/20/21 15:54 Pulse Rate 81 08/20/21 15:54 Respiratory Rate 18 08/20/21 15:54 Blood Pressure 132/79 08/20/21 15:54 Pulse Oximetry 100 08/20/21 15:54 MDM - Skin/Abscess/Foreign Bdy MDM Narrative Medical decision making narrative: Will order an outpatient US to r/o lipoma Critical Care Time Critical Care Time Critical Care Time: No Discharge Plan Discharge Clinical Impression: Skin lesion of left arm Patient Disposition: Home, Self-Care Condition: Stable Instructions: Antibiotic Form, Lipoma (ED), Soft Tissue Mass (ED) Additional Instructions: Follow-up with Primary Care Provider.
== END 2021-08-20 18:23 | disposition home or self-care (01) ==
LOC: ANHED 17:57
PROVIDERS: Emergency Provider Nurse Practitioner Family; PCP Hospitalist
DX: L98.9 Disorder of the skin and subcutaneous tissue, unspecified (principal); F41.9 Anxiety disorder, unspecified; M19.90 Unspecified osteoarthritis, unspecified site; K21.9 Gastro-esophageal reflux disease without esophagitis; E05.90 Thyrotoxicosis, unspecified without thyrotoxic crisis or storm; E66.01 Morbid (severe) obesity due to excess calories; Z68.42 Body mass index [BMI] 45.0-49.9, adult
CPT/HCPCS: 99281

== ENCOUNTER 2021-08-21 09:52 | Outpatient (CLI) | payer OTHER, SELFPAY ==
--- NOTE | ~2021-08-21 | US_ITS ---
EXAMINATION: US venous doppler UE LT DATE: 08/21/2021 11:53 INDICATION: Disorder of the skin and subcutaneous tissues of the left upper extremity TECHNIQUE: Grayscale ultrasound images without and with compression and Doppler ultrasound images of the left upper extremity veins were obtained. COMPARISON: None. FINDINGS: The left internal jugular vein, subclavian vein, axillary vein, brachial veins, basilic vein, cephali c vein, radial vein, and ulnar vein are patent. No sonographically detected mass is identified in the area of palpable concern. IMPRESSION: 1. No evidence of deep venous thrombosis. 2. No sonographically detected mass identified in the area of palpable concern. Reviewed, dictated and finalized at location A. OYMENT AND CLAIMS AIDE
== END 2021-08-21 09:53 | disposition home or self-care (01) ==
LOC: ANHIMG 09:54
PROVIDERS: PCP Hospitalist; Visit Provider Nurse Practitioner Family
DX: L98.9 Disorder of the skin and subcutaneous tissue, unspecified (principal)
CPT/HCPCS: 93971

== ENCOUNTER 2021-09-10 09:41 | Outpatient (CLI) | payer OTHER, SELFPAY ==
--- NOTE | ~2021-09-10 | US_ITS ---
EXAMINATION: US renal BI DATE: 09/10/2021 10:37 INDICATION: Abdominal and pelvic pain, crystals in the urine TECHNIQUE: Multiple grayscale and Doppler ultrasound images of the kidneys were obtained. COMPARISON: None. FINDINGS: The examination is limited by the patient's body habitus. The right kidney measures 11.1 x 5.5 x 5.3 cm. The left kidney measures 10.6 x 6.1 x 5.4 cm. The kidneys demonstrate normal parenchym al echogenicity. There is no hydronephrosis. The bladder is incompletely distended but unremarkable i n appearance. IMPRESSION: 1. Grossly normal kidneys without hydronephrosis. Reviewed, dictated and finalized at location B. BAG FINISHER
== END 2021-09-10 09:42 | disposition home or self-care (01) ==
LOC: ANHIMG 09:43
PROVIDERS: PCP Nurse Practitioner Adult Health; Visit Provider Obstetrics & Gynecology
DX: R10.2 Pelvic and perineal pain (principal)
CPT/HCPCS: 76775

== ENCOUNTER 2021-10-09 14:51 | Outpatient (CLI) | payer OTHER, SELFPAY ==
[2021-10-09 15:10] LABS: Basophils Percent Auto 0.5 % (0.2-1.2); Eosinophils Absolute Auto 0.1 K/mm3 (0-0.3); Eosinophils Percent Auto 0.8 % (0-4.4); Hemoglobin 13.5 g/dL (12.0-15.0); Immature Granulocyte Absolute 0.02 K/mm3 (0.00-0.031); Immature Granulocyte Percent A 0.3 % (0-0.5); Mean Corpuscular HGB Conc 33.8 g/dl (32-36); Mean Corpuscular Hemoglobin 29.5 pg (26-34); Mean Corpuscular Volume 87.3 fl (80-100); Mean Platelet Volume 9.6 fl (7.4-10.4); Monocytes Absolute Auto 0.5 K/mm3 (0.1-0.6); Monocytes Percent Auto 6.5 % (2.6-8.5); Neutrophils Absolute Auto 4.8 K/mm3 (1.3-6.7); Neutrophils Percent Auto 63.9 % (45.5-73.1); Platelet Count Result 289 k/mm3 (150-375); Red Blood Count 4.58 M/mm3 (4.2-5.4); Red Cell Distribution Width 13.2 % (11.5-14.5); White Blood Count 7.5 K/mm3 (4.5-10.0)
[2021-10-09 15:29] LABS: Iron 42 ug/dL (37-170)
[2021-10-09 15:38] LABS: Percent Iron Saturation 12 % (20-50)
== END 2021-10-09 14:52 | disposition home or self-care (01) ==
LOC: ANHLAB 14:53
PROVIDERS: PCP Nurse Practitioner Adult Health; Visit Provider Internal Medicine Hematology & Oncology
DX: D50.9 Iron deficiency anemia, unspecified (principal); D51.3 Other dietary vitamin B12 deficiency anemia
CPT/HCPCS: 36415; 82607; 82728; 82746; 83540; 83550; 85025

== ENCOUNTER 2021-10-11 14:51 | Outpatient (CLI) | payer OTHER, SELFPAY ==
[2021-10-11 16:00] LABS: Free T4 Free Thyroxine 1.16 ng/mL (0.78-2.19)
== END 2021-10-11 14:52 | disposition home or self-care (01) ==
LOC: ANHLAB 14:52
PROVIDERS: PCP Nurse Practitioner Adult Health; Visit Provider Internal Medicine Endocrinology, Diabetes & Metabolism
DX: E06.3 Autoimmune thyroiditis (principal)
CPT/HCPCS: 36415; 84439; 84443

== ENCOUNTER 2021-10-23 07:46 | Outpatient (CLI) | payer OTHER, SELFPAY ==
[2021-10-23 08:08] LABS: Basophils Percent Auto 0.2 % (0.2-1.2); Eosinophils Absolute Auto 0.1 K/mm3 (0-0.3); Eosinophils Percent Auto 1.6 % (0-4.4); Hematocrit 41.6 % (37.0-47.0); Hemoglobin 13.3 g/dL (12.0-15.0); Immature Granulocyte Absolute 0.02 K/mm3 (0.00-0.031); Immature Granulocyte Percent A 0.4 % (0-0.5); Lymphocytes Absolute Auto 0.84 K/mm3 (0.9-3.2); Lymphocytes Percent Auto 16.3 % (18.3-44.2); Mean Corpuscular Hemoglobin 28.9 pg (26-34); Mean Corpuscular Volume 90.2 fl (80-100); Mean Platelet Volume 9.2 fl (7.4-10.4); Monocytes Absolute Auto 0.3 K/mm3 (0.1-0.6); Monocytes Percent Auto 5.8 % (2.6-8.5); Neutrophils Absolute Auto 3.9 K/mm3 (1.3-6.7); Neutrophils Percent Auto 75.7 % (45.5-73.1); Platelet Count Result 247 k/mm3 (150-375); Red Blood Count 4.61 M/mm3 (4.2-5.4); Red Cell Distribution Width 13.1 % (11.5-14.5); White Blood Count 5.2 K/mm3 (4.5-10.0)
[2021-10-23 08:31] LABS: Alanine Aminotransferase 55 U/L (4-35); Albumin Level 4.4 g/dL (3.5-5.1); Alkaline Phosphatase 87 U/L (38-126); Anion Gap 7 mmol/L (8-16); Aspartate Amino Transferase 56 U/L (14-36); Bilirubin,Total 0.5 mg/dL (0.2-1.3); Blood Urea Nitrogen 15 mg/dL (7-17); Calcium 8.7 mg/dL (8.4-10.2); Carbon Dioxide 25 mmol/L (22-30); Chloride 106 mmol/L (98-107); Estimated Glomerular Filt Rate > 60; Glucose 122 mg/dL (65-110); Sodium 138 mmol/L (137-145)
[2021-10-23 09:02] LABS: Thyroid Stimulating Hormone 0.106 uIU/mL (0.465-4.680)
[2021-10-23 09:10] LABS: Iron 85 ug/dL (37-170)
[2021-10-23 09:19] LABS: Percent Iron Saturation 25 % (20-50)
[2021-10-23 09:27] LABS: Free T4 Free Thyroxine 1.09 ng/mL (0.78-2.19)
[2021-10-23 09:37] LABS: Folic Acid 5.5 ng/mL (2.76->20)
[2021-10-25 05:13] LABS: DHEA-Sulfate 108 mcg/dL (23-266); Thyroid Peroxidase Antibodies 1051 IU/mL (<9)
[2021-10-26 07:48] LABS: Triiodothyronine T3 Free 3.2 pg/mL (2.3-4.2)
[2021-10-27 02:28] LABS: Testosterone Free 4.4 pg/mL (0.1-6.4); Testosterone Total 54 ng/dL (2-45)
== END 2021-10-23 07:47 | disposition home or self-care (01) ==
PROVIDERS: PCP Hospitalist
DX: D50.9 Iron deficiency anemia, unspecified (principal)
CPT/HCPCS: 36415; 80053; 82607; 82627; 82746; 83540; 83550; 84402; 84403; 84439; 84443; 84481; 85025; 86376

== ENCOUNTER 2021-10-30 13:50 | Outpatient (CLI) | payer OTHER, SELFPAY ==
[2021-10-30 15:12] LABS: Alanine Aminotransferase 43 U/L (4-35); Albumin Level 4.6 g/dL (3.5-5.1); Alkaline Phosphatase 83 U/L (38-126); Anion Gap 7 mmol/L (8-16); Aspartate Amino Transferase 43 U/L (14-36); Bilirubin,Total 0.2 mg/dL (0.2-1.3); Blood Urea Nitrogen 10 mg/dL (7-17); Calcium 9.1 mg/dL (8.4-10.2); Carbon Dioxide 27 mmol/L (22-30); Chloride 105 mmol/L (98-107); Estimated Glomerular Filt Rate > 60; Glucose 90 mg/dL (65-110); Potassium 3.8 mmol/L (3.4-5.0); Sodium 139 mmol/L (137-145)
[2021-10-30 16:04] LABS: Hemoglobin A1C 5.5 % (<5.7)
[2021-10-30 16:19] LABS: Folic Acid 6.3 ng/mL (2.76->20)
[2021-10-30 17:05] LABS: Iron 62 ug/dL (37-170)
[2021-10-30 17:14] LABS: Percent Iron Saturation 17 % (20-50)
[2021-10-30 17:48] LABS: Free T4 Free Thyroxine 1.15 ng/mL (0.78-2.19)
[2021-10-30 17:50] LABS: Hepatitis B Surface Antigen Negative (Negative)
[2021-10-30 17:56] LABS: HAV RESULT Negative (Negative); Hepatitis B Core IgM Result Negative (Negative)
[2021-10-30 18:07] LABS: Hepatitis C Virus Antibody Negative (Negative)
[2021-11-01 12:32] LABS: DHEA-Sulfate 94 mcg/dL (23-266)
[2021-11-02 08:07] LABS: LH 9.5 mIU/mL (***); Progesterone 2.7 ng/mL (***)
[2021-11-03 07:17] LABS: Insulin Level Total 14.9 uIU/mL (<=19.6); Thyroid Peroxidase Antibodies 893 IU/mL (<9)
[2021-11-04 02:16] LABS: Estradiol, Ultrasensitive 174 pg/mL
[2021-11-04 12:26] LABS: LKM 1 Antibody <=20.0 U (<=20.0)
[2021-11-05 22:26] LABS: Mitochondrial (M2) Ab (IgG) <=20.0 U (<=20.0)
== END 2021-10-30 13:51 | disposition home or self-care (01) ==
LOC: ANHLAB 13:54
PROVIDERS: PCP Hospitalist; Visit Provider Internal Medicine Endocrinology, Diabetes & Metabolism
DX: E28.2 Polycystic ovarian syndrome (principal); R73.01 Impaired fasting glucose; R74.01 Elevation of levels of liver transaminase levels; E06.3 Autoimmune thyroiditis
CPT/HCPCS: 36415; 80053; 80074; 82607; 82627; 82670; 82728; 82746; 83001; 83002; 83036; 83520; 83525; 83540; 83550; 84144; 84439; 84443; 84481; 86038; 86376

== ENCOUNTER 2021-11-01 07:15 | Outpatient (CLI) | payer OTHER, SELFPAY ==
[2021-11-01 09:24] LABS: IFOB Positive Control Positive; Immunochemical Fecal Occult Bl Negative (N)
== END 2021-11-01 07:16 | disposition home or self-care (01) ==
LOC: ANHLAB 07:23
PROVIDERS: PCP Hospitalist
DX: K59.09 Other constipation (principal)
CPT/HCPCS: 82274

== ENCOUNTER 2021-11-07 07:06 | Outpatient (CLI) | payer OTHER, SELFPAY ==
--- NOTE | ~2021-11-07 | US_ITS ---
EXAMINATION: US right upper quadrant DATE: 11/07/2021 07:46 INDICATION: Elevated liver enzymes TECHNIQUE: Multiple grayscale and Doppler ultrasound images of the abdomen were obtained. COMPARISON: 10/10/2020 FINDINGS: The head and body of the pancreas are normal. The pancreatic tail is obscured by bowel gas. The liver demonstrates increased echogenicity, heterogenous echotexture, and decreased through trans mission. No surface nodularity. Normal hepatopetal flow in the main portal vein. The gallbladder is n ormal with no abnormal wall thickening, pericholecystic fluid or stones. The normal common bile duct measures 6 mm. There was no sonographic Wray sign. IMPRESSION: 1. Diffuse hepatic steatosis. Reviewed, dictated and finalized at location B.
== END 2021-11-07 07:07 | disposition home or self-care (01) ==
LOC: ANHIMG 07:09
PROVIDERS: PCP Hospitalist; Visit Provider Internal Medicine Endocrinology, Diabetes & Metabolism
DX: R74.01 Elevation of levels of liver transaminase levels (principal); K76.0 Fatty (change of) liver, not elsewhere classified
CPT/HCPCS: 76705

== ENCOUNTER 2021-11-20 13:11 | Outpatient (CLI) | payer OTHER, SELFPAY ==
[2021-11-20 20:39] LABS: IFOB Positive Control Positive; Immunochemical Fecal Occult Bl Negative (N)
[2021-11-20 21:01] LABS: Toxigenic C. Diff NEGATIVE (NEGATIVE)
== END 2021-11-20 13:12 | disposition home or self-care (01) ==
LOC: ANHLAB 13:16
PROVIDERS: PCP Hospitalist
DX: R19.4 Change in bowel habit (principal); R19.7 Diarrhea, unspecified
CPT/HCPCS: 82274; 87493

== ENCOUNTER 2021-11-25 12:29 | Outpatient (CLI) | payer OTHER, SELFPAY ==
[2021-11-30 18:41] LABS: Calprotectin, Stool 393 mcg/g
[2021-12-01 13:37] LABS: Pancreatic Elastase, Stool 353 mcg/g
== END 2021-11-25 12:30 | disposition home or self-care (01) ==
LOC: ANHLAB 12:33
PROVIDERS: PCP Hospitalist
DX: R19.4 Change in bowel habit (principal); R19.7 Diarrhea, unspecified
CPT/HCPCS: 82653; 83993; 87045; 87269; 87272; 87427; 89055

== ENCOUNTER 2021-11-29 14:56 | Outpatient (CLI) | payer OTHER, SELFPAY ==
[2021-11-29 16:09] LABS: Basophils Percent Auto 0.4 % (0.2-1.2); Eosinophils Absolute Auto 0.1 K/mm3 (0-0.3); Hematocrit 41.5 % (37.0-47.0); Hemoglobin 13.3 g/dL (12.0-15.0); Immature Granulocyte Absolute 0.02 K/mm3 (0.00-0.031); Immature Granulocyte Percent A 0.3 % (0-0.5); Lymphocytes Absolute Auto 1.95 K/mm3 (0.9-3.2); Mean Corpuscular Hemoglobin 29.2 pg (26-34); Mean Corpuscular Volume 91.2 fl (80-100); Mean Platelet Volume 9.8 fl (7.4-10.4); Monocytes Absolute Auto 0.4 K/mm3 (0.1-0.6); Monocytes Percent Auto 5.9 % (2.6-8.5); Neutrophils Absolute Auto 4.7 K/mm3 (1.3-6.7); Neutrophils Percent Auto 65.4 % (45.5-73.1); Platelet Count Result 288 k/mm3 (150-375); Red Blood Count 4.55 M/mm3 (4.2-5.4); Red Cell Distribution Width 14.2 % (11.5-14.5); White Blood Count 7.2 K/mm3 (4.5-10.0)
[2021-11-29 16:39] LABS: Iron 65 ug/dL (37-170)
[2021-11-29 17:05] LABS: Free T4 Free Thyroxine 0.94 ng/mL (0.78-2.19)
[2021-11-29 17:11] LABS: Percent Iron Saturation 22 % (20-50)
[2021-11-29 17:20] LABS: Thyroid Stimulating Hormone 0.783 uIU/mL (0.465-4.680)
[2021-11-29 17:56] LABS: Folic Acid 6.8 ng/mL (2.76->20)
[2021-12-03 20:07] LABS: Triiodothyronine T3 Free 2.6 pg/mL (2.3-4.2)
== END 2021-11-29 14:57 | disposition home or self-care (01) ==
PROVIDERS: PCP Hospitalist; Referring Provider Internal Medicine Endocrinology, Diabetes & Metabolism; Visit Provider Internal Medicine Hematology & Oncology
DX: D50.0 Iron deficiency anemia secondary to blood loss (chronic) (principal)
CPT/HCPCS: 36415; 82607; 82728; 82746; 83540; 83550; 84439; 84443; 84481; 85025

== ENCOUNTER 2021-12-30 08:32 | Outpatient (CLI) | payer OTHER, SELFPAY ==
[2021-12-30 09:26] LABS: Basophils Percent Auto 0.4 % (0.2-1.2); Eosinophils Absolute Auto 0.1 K/mm3 (0-0.3); Eosinophils Percent Auto 1.6 % (0-4.4); Hematocrit 40.8 % (37.0-47.0); Hemoglobin 13.3 g/dL (12.0-15.0); Immature Granulocyte Absolute 0.02 K/mm3 (0.00-0.031); Immature Granulocyte Percent A 0.3 % (0-0.5); Lymphocytes Absolute Auto 2.21 K/mm3 (0.9-3.2); Mean Corpuscular HGB Conc 32.6 g/dl (32-36); Mean Corpuscular Hemoglobin 29.5 pg (26-34); Mean Corpuscular Volume 90.5 fl (80-100); Mean Platelet Volume 9.6 fl (7.4-10.4); Monocytes Absolute Auto 0.5 K/mm3 (0.1-0.6); Monocytes Percent Auto 7.6 % (2.6-8.5); Neutrophils Absolute Auto 3.8 K/mm3 (1.3-6.7); Neutrophils Percent Auto 57.1 % (45.5-73.1); Platelet Count Result 289 k/mm3 (150-375); Red Blood Count 4.51 M/mm3 (4.2-5.4); Red Cell Distribution Width 14.6 % (11.5-14.5); White Blood Count 6.7 K/mm3 (4.5-10.0)
[2021-12-30 10:24] LABS: Iron 73 ug/dL (37-170)
[2021-12-30 10:34] LABS: Percent Iron Saturation 26 % (20-50)
[2021-12-30 10:45] LABS: Folic Acid 5.5 ng/mL (2.76->20)
== END 2021-12-30 08:33 | disposition home or self-care (01) ==
LOC: ANHLAB 08:38
PROVIDERS: PCP Hospitalist; Visit Provider Internal Medicine Hematology & Oncology
DX: D50.9 Iron deficiency anemia, unspecified (principal); D51.3 Other dietary vitamin B12 deficiency anemia
CPT/HCPCS: 36415; 82607; 82728; 82746; 83540; 83550; 85025

== ENCOUNTER 2022-01-28 14:19 | Emergency (ER) | payer OTHER, SELFPAY ==
--- NOTE | ~2022-01-28 | US_ITS ---
EXAMINATION:US venous doppler LE LT INDICATION:Left calf pain TECHNIQUE: Multiple grayscale, color flow and Doppler images of the left. lower extremity deep venous systems were obtained and reviewed. COMPARISON:06/28/2010 FINDINGS: The common femoral, superficial femoral and popliteal veins demonstrate normal respiratory variation, augmentation and compressibility. Color flow is also seen within the posterior tibial, pe roneal, greater saphenous and profunda veins. IMPRESSION: 1: No lower extremity deep venous thrombosis. Reviewed, dictated and finalized at location A.
[2022-01-28 14:25] VITALS: BP 127/86; PULSE 87; RESP 16; TEMP 36.3; O2SAT 99
--- NOTE | 2022-01-28 15:54 | ED.GENADULT ---
HPI - General Adult General Chief complaint: Extremity Injury, Lower Stated complaint: left leg pain Time Seen by Provider: 01/28/22 14:43 History of Present Illness HPI narrative: 28-year-old female presenting to the emergency department for evaluation of left calf pain. Patient states last week she did injure her right leg and has since been limping around and last night had pain in her left calf. Patient states she had muscular cramping and tightness. Patient was referred to the emergency department for an evaluation and DVT rule out. Related Data Home Medications Medication Instructions Recorded Confirmed sertraline 50 mg tablet 50 mg PO DAILY 12/14/20 01/28/22 Allergies Allergy/AdvReac Type Severity Reaction Status Date / Time NSAIDS (Non-Steroidal AdvReac Mild Other Verified 01/28/22 14:34 Anti-Inflamma Review of Systems Review of Systems: CONSTITUTIONAL: Denies fever, chills, or sweats. EYES: Denies visual changes, redness, or discharge. ENT: Denies rhinorrhea, congestion, sore throat, or otalgia. CARDIOVASCULAR: Denies chest pain, palpitations, or edema. RESPIRATORY: Denies cough or dyspnea. GASTROINTESTINAL: Denies abdominal pain, nausea, vomiting, or diarrhea. GENITOURINARY: Denies dysuria or hematuria. SKIN: Denies rash or itching. MUSCULOSKELETAL: See HPI NEUROLOGIC: Denies headache, numbness, or weakness. PMFSH Past Medical History Medical History Anemia Anxiety Arthritis GERD (gastroesophageal reflux disease) Hyperthyroidism Morbid obesity Surgical History Surgical History delivery delivered x4 H/O tubal ligation 2013 History of sleeve gastrectomy 2016 Family History Family History Unknown No pertinent family history Social History Social History Smoking status: Never smoker Second hand tobacco smoke exposure: No Alcohol intake: never Substance use: never Substance use type: does not use Gender identity (if verbalized by the patient): Female Spiritual care concerns: No Exam Narrative: APPEARANCE: Well appearing, no pain, no distress, well-nourished. HEAD: normocephalic, atraumatic. EYES: PERRLA/EOMI, conjunctivae clear. NOSE: Normal no drainage NECK: Supple. No adenopathy, no masses. RESPIRATORY: Airway patent, respirations nonlabored. Clear to auscultation bilaterally, no rales, rhonchi, wheezing. CARDIOVASCULAR: Regular rate and rhythm without murmurs rubs or gallops. ABDOMINAL: Soft, nontender, nondistended, normal bowel sounds MUSCULOSKELETAL: Some left calf tenderness to palpation. No erythema, no edema, no ecchymosis NEURO: Alert. Cranial nerves II through XII intact. Grossly intact SKIN: Warm, dry. Normal Color Course Course Emergency Course: Ultrasound was negative for DVT. Patient was updated on the plan for treatment. All question concerns were addressed. Patient was well-appearing at time of discharge. Vital Signs Vital signs: Vital Signs Temperature 97.3 F L 01/28/22 14:25 Pulse Rate 87 01/28/22 14:25 Respiratory Rate 16 01/28/22 14:25 Blood Pressure 127/86 01/28/22 14:25 Pulse Oximetry 99 01/28/22 14:25 Oxygen Delivery Room Air 01/28/22 14:25 Temperature 97.3 F L 01/28/22 14:25 Pulse Rate 87 01/28/22 14:25 Respiratory Rate 16 01/28/22 14:25 Blood Pressure 127/86 01/28/22 14:25 Pulse Oximetry 99 01/28/22 14:25 Oxygen Delivery Room Air 01/28/22 14:25 Medical Decision Making Vital Signs Vital Signs: Vital Signs Temperature 97.3 F L 01/28/22 14:25 Pulse Rate 87 01/28/22 14:25 Respiratory Rate 16 01/28/22 14:25 Blood Pressure 127/86 01/28/22 14:25 Pulse Oximetry 99 01/28/22 14:25 Oxygen Delivery Room Air 01/28/22 14:25 Temperature 97.3 F L 01/04
[2022-01-28] MEDS: CYCLOBENZAPRINE HCL 10 MG TABLET PO (16:07)
[2022-01-28] MEDS: ACETAMINOPHEN 500 MG TABLET 1000 MG PO (16:07)
== END 2022-01-28 16:12 | disposition home or self-care (01) ==
PROVIDERS: Emergency Provider Emergency Medicine; PCP Hospitalist
DX: M79.662 Pain in left lower leg (principal); F41.9 Anxiety disorder, unspecified; M19.90 Unspecified osteoarthritis, unspecified site; K21.9 Gastro-esophageal reflux disease without esophagitis; E66.01 Morbid (severe) obesity due to excess calories; Z68.41 Body mass index [BMI] 40.0-44.9, adult; Z98.84 Bariatric surgery status; Z86.2 Personal history of diseases of the blood and blood-forming organs and certain disorders involving the immune mechanism
CPT/HCPCS: 93971; 99284; A9270

== ENCOUNTER 2022-03-14 10:04 | Outpatient (CLI) | payer OTHER, SELFPAY ==
--- NOTE | 2022-03-14 | ECG_ITS ---
Measurements Intervals [place] Rate: 80 P: 30 NV: 157 QRS: 52 QRSD: 95 T: 15 QT: 373 QTc: 431 Interpretive Statements SINUS RHYTHM BORDERLINE ST-T WAVE ABNORMALITY- INFERIOR LEADS BASELINE WANDER- V3-V4 BORDERLINE ECG COMPARED TO ECG 09/06/2020 14:17:21 NO SIGNIFICANT CHANGES Electronically Signed On 03-14-2022 12:41:33 CDT by Enrico Gutierres D.O.
--- NOTE | ~2022-03-14 | XR_ITS ---
EXAMINATION: XR chest 2V DATE: 03/14/2022 11:38 INDICATION: Morbid obesity TECHNIQUE: PA and lateral views of the chest are obtained. COMPARISON: 05/08/2021 FINDINGS: The lungs are free of acute opacities. No pleural effusion or pneumothorax. The cardiomedia stinal silhouette is normal. There is mild thoracic spondylosis. IMPRESSION: 1. No acute cardiopulmonary abnormality. Reviewed, dictated and finalized at location B.
[2022-03-14 12:54] LABS: Basophils Percent Auto 0.5 % (0.2-1.2); Eosinophils Absolute Auto 0.1 K/mm3 (0-0.3); Eosinophils Percent Auto 1.2 % (0-4.4); Hematocrit 39.3 % (37.0-47.0); Hemoglobin 13.4 g/dL (12.0-15.0); Immature Granulocyte Absolute 0.04 K/mm3 (0.00-0.031); Immature Granulocyte Percent A 0.5 % (0-0.5); Lymphocytes Absolute Auto 2.24 K/mm3 (0.9-3.2); Lymphocytes Percent Auto 29.2 % (18.3-44.2); Mean Corpuscular HGB Conc 34.1 g/dl (32-36); Mean Corpuscular Volume 88.1 fl (80-100); Mean Platelet Volume 9.4 fl (7.4-10.4); Monocytes Absolute Auto 0.5 K/mm3 (0.1-0.6); Monocytes Percent Auto 6.1 % (2.6-8.5); Neutrophils Absolute Auto 4.8 K/mm3 (1.3-6.7); Neutrophils Percent Auto 62.5 % (45.5-73.1); Platelet Count Result 326 k/mm3 (150-375); Red Blood Count 4.46 M/mm3 (4.2-5.4); White Blood Count 7.7 K/mm3 (4.5-10.0)
[2022-03-14 13:01] LABS: INR 0.9
[2022-03-14 13:02] LABS: Partial Thromboplastin Time 25.9 SECONDS (22.3-36.8)
[2022-03-14 14:26] LABS: Hemoglobin A1C 5.7 % (<5.7)
[2022-03-14 14:54] LABS: Alanine Aminotransferase 40 U/L (6-35); Albumin Level 4.4 g/dL (3.5-5.1); Alkaline Phosphatase 99 U/L (38-126); Anion Gap 11 mmol/L (8-16); Aspartate Amino Transferase 32 U/L (14-36); Bilirubin,Total 0.2 mg/dL (0.2-1.3); Blood Urea Nitrogen 13 mg/dL (7-17); Calcium 9.4 mg/dL (8.4-10.2); Carbon Dioxide 20 mmol/L (22-30); Chloride 107 mmol/L (98-107); Cholesterol 232 mg/dL (0-200); Estimated Glomerular Filt Rate > 60; Glucose 127 mg/dL (65-110); HDL Direct 58 mg/dL; Magnesium 2.2 mg/dL (1.6-2.3); Potassium 3.7 mmol/L (3.4-5.0); Sodium 138 mmol/L (137-145); Triglycerides 208 mg/dL (<150)
[2022-03-14 14:57] LABS: Iron 52 ug/dL (37-170)
[2022-03-14 15:04] LABS: LDL Cholesterol Direct 119 mg/dL
[2022-03-14 15:07] LABS: Vitamin D 25 Hydroxy 29.6 ng/mL
[2022-03-14 15:08] LABS: Percent Iron Saturation 16 % (20-50)
[2022-03-14 15:28] LABS: Free T4 Free Thyroxine 0.87 ng/mL (0.78-2.19)
[2022-03-14 15:59] LABS: Folic Acid 7.2 ng/mL (2.76->20)
[2022-03-14 16:33] LABS: Parathyroid Intact 58.9 pg/mL (7.5-53.5)
[2022-03-16 03:15] LABS: DHEA-Sulfate 101 mcg/dL (23-266); Thyroid Peroxidase Antibodies 515 IU/mL (<9)
[2022-03-18 13:55] LABS: Testosterone Free 3.6 pg/mL (0.1-6.4); Testosterone Total 41 ng/dL (2-45)
[2022-03-20 04:53] LABS: Vitamin B1 9 nmol/L (8-30)
[2022-03-20 20:17] LABS: Triiodothyronine T3 Free 2.2 pg/mL (2.3-4.2)
== END 2022-03-14 10:05 | disposition home or self-care (01) ==
PROVIDERS: PCP Hospitalist
DX: E06.3 Autoimmune thyroiditis (principal); E28.2 Polycystic ovarian syndrome; R73.01 Impaired fasting glucose
CPT/HCPCS: 36415; 71046; 80053; 80061; 82306; 82607; 82627; 82728; 82746; 83036; 83525; 83540; 83550; 83735; 83970; 84402; 84403; 84425; 84439; 84443; 84481; 85025; 85610; 85730; 86376; 93005

== ENCOUNTER 2022-03-15 10:18 | Outpatient (CLI) | payer OTHER, SELFPAY ==
[2022-03-15 11:24] LABS: Basophils Percent Auto 0.6 % (0.2-1.2); Eosinophils Absolute Auto 0.1 K/mm3 (0-0.3); Eosinophils Percent Auto 1.1 % (0-4.4); Hemoglobin 12.9 g/dL (12.0-15.0); Immature Granulocyte Absolute 0.05 K/mm3 (0.00-0.031); Immature Granulocyte Percent A 0.7 % (0-0.5); Lymphocytes Absolute Auto 2.04 K/mm3 (0.9-3.2); Lymphocytes Percent Auto 28.8 % (18.3-44.2); Mean Corpuscular HGB Conc 32.3 g/dl (32-36); Mean Corpuscular Hemoglobin 29.3 pg (26-34); Mean Corpuscular Volume 90.9 fl (80-100); Mean Platelet Volume 9.7 fl (7.4-10.4); Monocytes Absolute Auto 0.4 K/mm3 (0.1-0.6); Monocytes Percent Auto 6.2 % (2.6-8.5); Neutrophils Absolute Auto 4.4 K/mm3 (1.3-6.7); Neutrophils Percent Auto 62.6 % (45.5-73.1); Platelet Count Result 306 k/mm3 (150-375); Red Cell Distribution Width 13.2 % (11.5-14.5); White Blood Count 7.1 K/mm3 (4.5-10.0)
[2022-03-15 11:37] LABS: Alanine Aminotransferase 40 U/L (6-35); Albumin Level 4.4 g/dL (3.5-5.1); Alkaline Phosphatase 76 U/L (38-126); Anion Gap 10 mmol/L (8-16); Aspartate Amino Transferase 35 U/L (14-36); Bilirubin,Total 0.5 mg/dL (0.2-1.3); Blood Urea Nitrogen 13 mg/dL (7-17); Carbon Dioxide 24 mmol/L (22-30); Chloride 105 mmol/L (98-107); Cholesterol 225 mg/dL (0-200); Estimated Glomerular Filt Rate > 60; Glucose 94 mg/dL (65-110); HDL Direct 60 mg/dL; Magnesium 2.3 mg/dL (1.6-2.3); Potassium 3.9 mmol/L (3.4-5.0); Prothrombin Time 12.3 Seconds (11.1-14.7); Sodium 139 mmol/L (137-145); Triglycerides 75 mg/dL (<150)
[2022-03-15 11:48] LABS: LDL Cholesterol Direct 129 mg/dL
[2022-03-15 11:56] LABS: Hemoglobin A1C 5.8 % (<5.7)
[2022-03-15 12:28] LABS: Parathyroid Intact 62.7 pg/mL (7.5-53.5)
[2022-03-15 12:42] LABS: Folic Acid 7.5 ng/mL (2.76->20)
[2022-03-15 13:02] LABS: Iron 94 ug/dL (37-170)
[2022-03-15 13:14] LABS: Percent Iron Saturation 28 % (20-50)
[2022-03-15 13:15] LABS: Vitamin D 25 Hydroxy 36.6 ng/mL
== END 2022-03-15 10:19 | disposition home or self-care (01) ==
LOC: ANHLAB 10:23
PROVIDERS: PCP Hospitalist
DX: E66.01 Morbid (severe) obesity due to excess calories (principal); Z01.818 Encounter for other preprocedural examination
CPT/HCPCS: 36415; 80053; 80061; 82306; 82607; 82728; 82746; 83036; 83540; 83550; 83735; 83970; 84425; 84443; 85025; 85610

== ENCOUNTER 2022-03-17 07:49 | Outpatient (CLI) | payer OTHER, SELFPAY ==
[2022-03-22 08:16] LABS: Vitamin B1 <6 nmol/L (8-30)
== END 2022-03-17 07:50 | disposition home or self-care (01) ==
LOC: ANHLAB 07:54
PROVIDERS: PCP Hospitalist
DX: E66.01 Morbid (severe) obesity due to excess calories (principal); Z01.818 Encounter for other preprocedural examination
CPT/HCPCS: 36415; 84425

== ENCOUNTER 2022-03-18 12:09 | Outpatient (CLI) | payer OTHER, SELFPAY ==
--- NOTE | 2022-03-18 | ECG_ITS ---
Measurements Intervals [place] Rate: 69 P: 31 CA: 155 QRS: 51 QRSD: 91 T: 7 QT: 380 QTc: 409 Interpretive Statements SINUS RHYTHM BASELINE ARTIFACT- I, II, III, AVF NORMAL ECG COMPARED TO ECG 03/14/2022 12:16:27 NO SIGNIFICANT CHANGES Electronically Signed On 03-18-2022 13:20:24 CDT by Enrico Gutierres D.O.
== END 2022-03-18 12:10 | disposition home or self-care (01) ==
LOC: ANHCARD 12:13
PROVIDERS: PCP Hospitalist
DX: E66.01 Morbid (severe) obesity due to excess calories (principal); Z01.818 Encounter for other preprocedural examination
CPT/HCPCS: 93005

== ENCOUNTER 2022-03-20 06:31 | Outpatient (CLI) | payer OTHER, SELFPAY ==
[2022-03-20 08:35] LABS: Alanine Aminotransferase 35 U/L (6-35); Albumin Level 4.3 g/dL (3.5-5.1); Alkaline Phosphatase 65 U/L (38-126); Anion Gap 15 mmol/L (8-16); Aspartate Amino Transferase 30 U/L (14-36); Bilirubin,Total 0.6 mg/dL (0.2-1.3); Blood Urea Nitrogen 16 mg/dL (7-17); Calcium 8.7 mg/dL (8.4-10.2); Carbon Dioxide 24 mmol/L (22-30); Chloride 102 mmol/L (98-107); Estimated Glomerular Filt Rate > 60; Glucose 117 mg/dL (65-110); Potassium 3.8 mmol/L (3.4-5.0); Sodium 141 mmol/L (137-145)
[2022-03-20 10:19] LABS: Hemoglobin A1C 5.7 % (<5.7)
[2022-03-20 11:09] LABS: Free T4 Free Thyroxine 1.07 ng/mL (0.78-2.19)
[2022-03-22 12:12] LABS: DHEA-Sulfate 107 mcg/dL (23-266); Insulin Level Total 15.6 uIU/mL (<=19.6)
[2022-03-23 05:19] LABS: Triiodothyronine T3 Free 2.8 pg/mL (2.3-4.2)
[2022-03-24 04:31] LABS: Thyroid Peroxidase Antibodies 383 IU/mL (<9)
[2022-03-26 12:55] LABS: Testosterone Free 3.6 pg/mL (0.1-6.4); Testosterone Total 48 ng/dL (2-45)
== END 2022-03-20 06:32 | disposition home or self-care (01) ==
LOC: ANHLAB 06:33
PROVIDERS: PCP Hospitalist; Visit Provider Internal Medicine Endocrinology, Diabetes & Metabolism
DX: E06.3 Autoimmune thyroiditis (principal); E28.2 Polycystic ovarian syndrome; R73.01 Impaired fasting glucose
CPT/HCPCS: 36415; 80053; 82627; 83036; 83525; 84402; 84403; 84439; 84443; 84481; 86376

== ENCOUNTER 2022-03-28 11:51 | Outpatient (CLI) | payer OTHER, SELFPAY ==
[2022-03-28 12:40] LABS: Alanine Aminotransferase 39 U/L (6-35); Albumin Level 4.3 g/dL (3.5-5.1); Alkaline Phosphatase 80 U/L (38-126); Anion Gap 10 mmol/L (8-16); Aspartate Amino Transferase 37 U/L (14-36); Bilirubin,Total 0.5 mg/dL (0.2-1.3); Blood Urea Nitrogen 11 mg/dL (7-17); Calcium 8.9 mg/dL (8.4-10.2); Carbon Dioxide 24 mmol/L (22-30); Chloride 104 mmol/L (98-107); Estimated Glomerular Filt Rate > 60; Glucose 104 mg/dL (65-110); Potassium 3.6 mmol/L (3.4-5.0); Sodium 138 mmol/L (137-145)
[2022-03-28 13:15] LABS: Hemoglobin A1C 5.6 % (<5.7)
[2022-03-28 13:31] LABS: Free T4 Free Thyroxine 1.12 ng/mL (0.78-2.19)
[2022-03-29 08:41] LABS: Basophils Absolute Auto 0.1 K/mm3 (0.0-0.1); Basophils Percent Auto 0.8 % (0.2-1.2); Eosinophils Absolute Auto 0.1 K/mm3 (0-0.3); Eosinophils Percent Auto 1.2 % (0-4.4); Hematocrit 40.3 % (37.0-47.0); Hemoglobin 13.2 g/dL (12.0-15.0); Immature Granulocyte Absolute 0.03 K/mm3 (0.00-0.031); Immature Granulocyte Percent A 0.5 % (0-0.5); Lymphocytes Absolute Auto 2.07 K/mm3 (0.9-3.2); Mean Corpuscular HGB Conc 32.8 g/dl (32-36); Mean Corpuscular Hemoglobin 29.8 pg (26-34); Mean Platelet Volume 10.1 fl (7.4-10.4); Monocytes Absolute Auto 0.4 K/mm3 (0.1-0.6); Monocytes Percent Auto 6.2 % (2.6-8.5); Neutrophils Absolute Auto 3.8 K/mm3 (1.3-6.7); Neutrophils Percent Auto 59.3 % (45.5-73.1); Platelet Count Result 338 k/mm3 (150-375); Red Blood Count 4.43 M/mm3 (4.2-5.4); Red Cell Distribution Width 13.1 % (11.5-14.5); White Blood Count 6.5 K/mm3 (4.5-10.0)
[2022-03-31 04:35] LABS: DHEA-Sulfate 116 mcg/dL (23-266); Insulin Level Total 17.1 uIU/mL (<=19.6); Thyroid Peroxidase Antibodies 459 IU/mL (<9)
[2022-03-31 14:42] LABS: Triiodothyronine T3 Free 2.7 pg/mL (2.3-4.2)
[2022-04-02 10:31] LABS: Testosterone Free 4.6 pg/mL (0.1-6.4); Testosterone Total 50 ng/dL (2-45)
== END 2022-03-28 11:52 | disposition home or self-care (01) ==
LOC: ANHLAB 11:52
PROVIDERS: PCP Hospitalist; Visit Provider Internal Medicine Endocrinology, Diabetes & Metabolism
DX: E06.3 Autoimmune thyroiditis (principal); E28.2 Polycystic ovarian syndrome; R73.01 Impaired fasting glucose
CPT/HCPCS: 36415; 80053; 82627; 83036; 83525; 84402; 84403; 84439; 84443; 84481; 85025; 86376

== ENCOUNTER 2022-04-07 15:19 | Emergency (ER) | payer OTHER, SELFPAY ==
--- NOTE | ~2022-04-07 | CT_ITS ---
EXAMINATION: CT abdomen pelvis wo con DATE: 04/07/2022 16:45 INDICATION: Right flank pain. Dysuria. TECHNIQUE: Computed tomography (CT) of the abdomen and pelvis was performed without intravenous contr ast. Automated exposure control and iterative reconstruction technique were employed. The dose-length product was 1083.56 mGy-cm. COMPARISON: CT abdomen and pelvis 10/10/2020 FINDINGS: The visualized portions of the lung bases demonstrate mild atelectasis. No pleural effusion . The heart size is normal. No pericardial effusion. There is diffuse hepatic steatosis. The gallblad bret, spleen, pancreas, adrenal glands, and kidneys are normal. There are changes of gastric sleeve pr ocedure. There are no dilated loops of bowel. There are changes of appendectomy. There are no patholo gically enlarged lymph nodes. There is no free intraperitoneal fluid. There is mild thoracolumbar spo ndylosis. There is a hemangioma in T7 vertebral body. IMPRESSION: 1. No urolithiasis. 2. Diffuse hepatic steatosis. Reviewed, dictated and finalized at location B.
[2022-04-07 15:41] VITALS: BP 149/88; PULSE 87; RESP 17; TEMP 36.9; O2SAT 100
[2022-04-07 15:56] LABS: Basophils Percent Auto 0.6 % (0.2-1.2); Eosinophils Absolute Auto 0.1 K/mm3 (0-0.3); Eosinophils Percent Auto 1.5 % (0-4.4); Hematocrit 37.6 % (37.0-47.0); Hemoglobin 12.2 g/dL (12.0-15.0); Immature Granulocyte Absolute 0.03 K/mm3 (0.00-0.031); Immature Granulocyte Percent A 0.4 % (0-0.5); Lymphocytes Absolute Auto 2.01 K/mm3 (0.9-3.2); Lymphocytes Percent Auto 27.7 % (18.3-44.2); Mean Corpuscular HGB Conc 32.4 g/dl (32-36); Mean Corpuscular Hemoglobin 29.3 pg (26-34); Mean Corpuscular Volume 90.4 fl (80-100); Mean Platelet Volume 9.3 fl (7.4-10.4); Monocytes Absolute Auto 0.5 K/mm3 (0.1-0.6); Monocytes Percent Auto 6.9 % (2.6-8.5); Neutrophils Absolute Auto 4.6 K/mm3 (1.3-6.7); Neutrophils Percent Auto 62.9 % (45.5-73.1); Platelet Count Result 326 k/mm3 (150-375); Red Blood Count 4.16 M/mm3 (4.2-5.4); Red Cell Distribution Width 13.3 % (11.5-14.5); White Blood Count 7.3 K/mm3 (4.5-10.0)
[2022-04-07 16:10] LABS: Alanine Aminotransferase 34 U/L (6-35); Albumin Level 4.3 g/dL (3.5-5.1); Alkaline Phosphatase 73 U/L (38-126); Anion Gap 10 mmol/L (8-16); Aspartate Amino Transferase 28 U/L (14-36); Bilirubin,Total 0.2 mg/dL (0.2-1.3); Blood Urea Nitrogen 12 mg/dL (7-17); Calcium 8.9 mg/dL (8.4-10.2); Carbon Dioxide 27 mmol/L (22-30); Chloride 103 mmol/L (98-107); Estimated CRCL calculation 119 ml/min; Estimated Glomerular Filt Rate > 60; Glucose 119 mg/dL (65-110); Lipase 84 U/L (23-300); Potassium 3.9 mmol/L (3.4-5.0); Sodium 140 mmol/L (137-145)
[2022-04-07 16:13] LABS: Appearance Urine Cloudy (Clear); Bilirubin Urine Negative (Negative); Blood Urine Negative (Negative); Color Urine Yellow (Yellow); Glucose Urine UA Negative (Negative); Ketones Urine Negative (Negative); Leukocyte Esterase Ur Negative LEU/UL (Negative); Nitrate Urine Negative (Negative); Protein Urine Negative (Negative); Specific Grav Ur 1.025 (1.001-1.035); Urobilinogen Urine 0.2 mg/dL (<2.0)
[2022-04-07 16:23] LABS: Amorphous Sediment Urine Few; Mucus Urine Rare /lpf; Squamous Epithelial Cell Urine Moderate /hpf (Few)
[2022-04-07 16:27] LABS: Add Urine Microscopic? YES
--- NOTE | 2022-04-07 17:22 | ED.BACK ---
HPI - Back Pain/Injury General Chief Complaint: Back Pain/Injury Stated Complaint: low back pain Time Seen by Provider: 04/07/22 16:32 History of Present Illness HPI Narrative: 36-year-old female history of kidney stones presents to the emergency room for evaluation of right flank pain and abdominal pain and back pain since yesterday. Patient states that she has had decreased urinary output due to the abdominal discomfort. Patient states pain feels similar to past kidney stones. Patient denies any constipation or diarrhea. States that she has been having regular bowel movements. Patient states she occasionally feels nauseated. Patient states that back pain is worse with movement. Denies any injury or trauma. Denies any obvious hematuria. Related Data Home Medications Medication Instructions Recorded Confirmed No Home Medications 04/02/22 04/02/22 Allergies Allergy/AdvReac Type Severity Reaction Status Date / Time NSAIDS (Non-Steroidal AdvReac Mild Other Verified 04/02/22 08:51 Anti-Inflamma Review of Systems Review of Systems: CONSTITUTIONAL: Denies fever, chills, or sweats. EYES: Denies visual changes, redness, or discharge. ENT: Denies rhinorrhea, congestion, sore throat, or otalgia. CARDIOVASCULAR: Denies chest pain, palpitations, or edema. RESPIRATORY: Denies cough or dyspnea. GASTROINTESTINAL: Reports abdominal pain, nausea, and right flank pain GENITOURINARY: Denies dysuria or hematuria. SKIN: Denies rash or itching. MUSCULOSKELETAL: Denies back pain, joint pain, or myalgia. NEUROLOGIC: Denies headache, numbness, dizziness, or weakness. PSYCHIATRIC: Denies anxiety or depression. [facility] Past Medical History Medical History Anemia Anxiety Arthritis GERD (gastroesophageal reflux disease) Hyperthyroidism Morbid obesity Surgical History Surgical History delivery delivered x4 H/O tubal ligation 2013 History of sleeve gastrectomy 2016 Family History Family History Unknown No pertinent family history Social History Social History Smoking status: Never smoker Second hand tobacco smoke exposure: No Alcohol intake: never Substance use: never Substance use type: does not use Gender identity (if verbalized by the patient): Female Spiritual care concerns: No Exam Narrative: GENERAL: Well-appearing, well-nourished, no physical limitations, and in no acute distress. HEAD: Normocephalic, atraumatic. EYES: Conjunctivae normal, PERRLA and EOMI. CHEST: Clear to auscultation. No respiratory distress. No wheezes rales or rhonchi. No tenderness. HEART: Regular rate and rhythm. No murmur heard. Normal peripheral pulses. ABDOMEN: Soft, right-sided abdominal tenderness, nondistended, normal active bowel sounds. : Normal external male/female exam. BACK: Right CVA tenderness; no midline lumbar tenderness, step-offs, bony abnormality; FROM. Tenderness to the right lower lumbar area. EXTREMITIES: Normal range of motion. No edema. No clubbing or cyanosis SKIN: Warm, dry, no rash. No noted wounds NEURO: No focal deficits. Alert and oriented x3. MAEW. CN's II-XI intact bilaterally, normal gait PSYCH: Cooperative. Normal mood and affect. Course Vital Signs Vital signs: Vital Signs Temperature 36.9 C 04/07/22 15:41 Pulse Rate 87 04/07/22 15:41 Respiratory Rate 17 04/07/22 15:41 Blood Pressure 149/88 H 04/07/22 15:41 Pulse Oximetry 100 04/07/22 15:41 Oxygen Delivery Room Air 04/07/22 15:41 Temperature 36.9 C 04/07/22 15:41 Pulse Rate 87 04/07/22 15:41 Respiratory Rate 17 04/07/22 15:41 Blood Pressure 149/88 H 04/07/22 15:41 Pulse Oximetry 100 04/07/22 15:41 Oxygen Delivery Room Air 04/07/22 15:41 MDM - Back Pa
== END 2022-04-07 18:17 | disposition home or self-care (01) ==
PROVIDERS: Emergency Medicine; Emergency Provider Nurse Practitioner Family; PCP Hospitalist
DX: R10.9 Unspecified abdominal pain (principal); E05.90 Thyrotoxicosis, unspecified without thyrotoxic crisis or storm; M19.90 Unspecified osteoarthritis, unspecified site; K21.9 Gastro-esophageal reflux disease without esophagitis; E66.01 Morbid (severe) obesity due to excess calories; Z68.42 Body mass index [BMI] 45.0-49.9, adult; Z86.2 Personal history of diseases of the blood and blood-forming organs and certain disorders involving the immune mechanism; Z98.84 Bariatric surgery status; K76.0 Fatty (change of) liver, not elsewhere classified
CPT/HCPCS: 36415; 74176; 80053; 81001; 83690; 85025; 99284

== ENCOUNTER 2022-04-24 09:35 | Outpatient (CLI) | payer OTHER, SELFPAY ==
--- NOTE | 2022-04-24 10:10 | EST_ITS ---
Patient Info Name: Jazmyn San Age: 36 years : 1985 Gender: Female Ht: 64 in Wt: 265 lbs BSA: 2.40 m2 HR: 75 bpm BP: 123 / 71 mmHg Heart Rhythm: Sinus Rhythm Exam Date: 04/24/2022 10:21 AM Exam Location: [facility] Stress Patient Status: Outpatient Admit Date: 04/24/2022 Staff Ordering Physician: Enrico Gutierres DO Attending Provider: Enrico Gutierres DO Exercise Technologist: Genesis Head CT Exercise Physician: Enrico Gutierres DO Exam Type: CA stress test treadmill Study Info Indications R06.00 - Dyspnea, unspecified A treadmill exercise stress test was performed. Summary 1. 1. Negative Edy exercise stress test for ischemic ST changes by ECG criteria. 2. 2. Reduced functional capacity, achieving 7 METs of workload. 3. 3. Appropriate HR response to exercise. 4. 4. Appropriate HR recovery at 1 minute post exercise. 5. 5. No imaging with stress testing. 6. 6. Patient informed of the above results. Protocol: Edy Stress ECG Details Stage: REST Duration (min): 1 min : 18 sec Speed (mph): 0.0 Grade (%): 0 HR (bpm): 76 SBP (mmHg): 123 DBP (mmHg): 71 METS: --- Stage: REST Duration (min): 7 min : 2 sec Speed (mph): 0.0 Grade (%): 0 HR (bpm): 87 SBP (mmHg): 123 DBP (mmHg): 71 METS: --- Stage: STAGE 1 Duration (min): 1 min : 0 sec Speed (mph): 1.7 Grade (%): 10 HR (bpm): 123 SBP (mmHg): 123 DBP (mmHg): 71 METS: --- Stage: STAGE 1 Duration (min): 2 min : 0 sec Speed (mph): 1.7 Grade (%): 10 HR (bpm): 140 SBP (mmHg): 123 DBP (mmHg): 71 METS: --- Stage: STAGE 1 Duration (min): 3 min : 0 sec Speed (mph): 1.7 Grade (%): 10 HR (bpm): 145 SBP (mmHg): 145 DBP (mmHg): 59 METS: --- Stage: STAGE 2 Duration (min): 1 min : 0 sec Speed (mph): 2.5 Grade (%): 12 HR (bpm): 158 SBP (mmHg): 145 DBP (mmHg): 59 METS: --- Stage: STAGE 2 Duration (min): 2 min : 0 sec Speed (mph): 2.5 Grade (%): 12 HR (bpm): 162 SBP (mmHg): 162 DBP (mmHg): 75 METS: --- Stage: STAGE 2 Duration (min): 3 min : 0 sec Speed (mph): 2.5 Grade (%): 12 HR (bpm): 166 SBP (mmHg): 162 DBP (mmHg): 75 METS: --- Stage: RECOVERY Duration (min): 0 min : 59 sec Speed (mph): 0.0 Grade (%): 0 HR (bpm): 144 SBP (mmHg): 172 DBP (mmHg): 77 METS: --- Stage: RECOVERY Duration (min): 1 min : 20 sec Speed (mph): 0.0 Grade (%): 0 HR (bpm): 127 SBP (mmHg): 172 DBP (mmHg): 77 METS: --- Rest HR: 87 bpm Peak HR: 166 bpm Rest Sys BP: 123 mmHg Peak Sys BP: 172 mmHg Max Pred HR: 182 bpm % Max Pred HR: 91 % Target HR: 155 bpm Max RPP: 28,552 bpm*mmHg Patel Score: -1 Termination Reason: Reached target heart rate or workload Cardiac Symptoms: Shortness of breath Max ST Seg Deviation: -1.40 mm Total Time: 6 min : 0 sec Rest Lindsay BP: 71 mmHg Peak Lindsay BP: 77 mmHg A
== END 2022-04-24 09:36 | disposition home or self-care (01) ==
LOC: ANHCARD 09:36
PROVIDERS: PCP Hospitalist; Visit Provider Internal Medicine Cardiovascular Disease
DX: R06.09 Other forms of dyspnea (principal)
CPT/HCPCS: 93017

== ENCOUNTER 2022-04-29 06:57 | Outpatient (CLI) | payer OTHER, SELFPAY ==
--- NOTE | ~2022-04-29 | MR_ITS ---
EXAMINATION: MR foot RT wo con DATE: 04/29/2022 09:58 INDICATION: Subcutaneous nodule of right foot. TECHNIQUE: Magnetic resonance imaging (MRI) of the right foot was performed without intravenous contr ast. COMPARISON: None FINDINGS: Bone alignment is normal. No fracture. There is mild osteoarthritis of first metatarsophala ngeal joint. The musculature is normal. There is a skin marker plantar to medial cuneiform. There is mild subcutaneous fat stranding abutting the plantar fascia in this area. There is focal artifact at the skin plantar to calcaneus, likely a punctate foreign body at the skin. IMPRESSION: 1. Subcutaneous fat stranding plantar to the midfoot in the patient's area of concern, consistent wit h edema versus mild inflammation. Reviewed, dictated and finalized at location A. IMPRESSION: 1. Subcutaneous fat stranding plantar to the midfoot in the patient's area of c oncern, consistent with edema versus mild inflammation.
== END 2022-04-29 06:58 | disposition home or self-care (01) ==
PROVIDERS: PCP Hospitalist; Visit Provider Hospitalist
DX: R22.41 Localized swelling, mass and lump, right lower limb (principal)
CPT/HCPCS: 73718

== ENCOUNTER 2022-06-12 10:07 | Outpatient (CLI) | payer OTHER, SELFPAY ==
--- NOTE | ~2022-06-12 | US_ITS ---
US thyroid INDICATION: Thyroid goiter TECHNIQUE: Real-time sonographic images of the thyroid gland were obtained. COMPARISON: Ultrasound dated 08/05/2021 FINDINGS: The right thyroid lobe measures 5 x 1.5 x 1.6 cm. The left thyroid lobe measures 4.5 x 1.5 x 1.5 cm. Thyroid gland is diffusely heterogeneous with similar appearance to prior examination. No discrete mass identified. Normal vascular flow is present. IMPRESSION: 1. Diffusely enlarged heterogeneous thyroid gland with normal vascularity, compatible with multinodu lar goiter. Reviewed, dictated and finalized at location A. E MANAGER IMPRESSION: 1. Diffusely enlarged heterogeneous thyroid gland with normal vascularity, com patible with multinodular goiter.
== END 2022-06-12 10:08 | disposition home or self-care (01) ==
PROVIDERS: PCP Hospitalist; Visit Provider Internal Medicine Endocrinology, Diabetes & Metabolism
DX: E04.1 Nontoxic single thyroid nodule (principal)
CPT/HCPCS: 76536

== ENCOUNTER 2022-06-20 08:29 | Outpatient (CLI) | payer OTHER, SELFPAY ==
--- NOTE | ~2022-06-20 | MMUS_ITS ---
EXAMINATION: MM diagnostic jil BI w deepti, US breast LT complete HISTORY: Left breast pain. TECHNIQUE: Additional 3-D tomosynthesis images of the breasts were performed and synthetic 2-D images were generated. CAD analysis was submitted and interpreted. High resolution complete left breast ult rasound was performed. COMPARISON: None BREAST PARENCHYMAL COMPOSITION: BREAST PARENCHYMAL COMPOSITION: There are scattered areas of fibroglandular density. FINDINGS: MAMMOGRAPHIC FINDINGS: There are benign-appearing bilateral intramammary lymph nodes in the upper outer quadrant of both kyalan asts. No suspicious masses, calcifications or architectural distortion are identified in either breas t to suggest malignancy. ULTRASOUND: Complete US of all 4 quadrants of the left breast and retroareolar region was reviewed. Normal hetero geneous echotexture in the left breast without discrete mass. There are normal-appearing left axillar y lymph nodes. IMPRESSION: 1. No evidence for malignancy in either breast. 2. Routine yearly screening mammogram and regular clinical breast examination are recommended. BI-RADS Category 1: Negative Reviewed, dictated and finalized at location B. ING MILL SUPERVISOR IMPRESSION: 1. No evidence for malignancy in either breast. 2. Routine yearly screening mammogram and regular clinical breast examination a re recommended. BI-RADS Category 1: Negative
== END 2022-06-20 08:30 | disposition home or self-care (01) ==
PROVIDERS: PCP Hospitalist; Visit Provider Student in an Organized Health Care Education/Training Program
DX: N64.4 Mastodynia (principal)
CPT/HCPCS: 76641; 77062; 77066; G0279

== ENCOUNTER 2022-07-09 13:06 | Outpatient (CLI) | payer OTHER, SELFPAY ==
[2022-07-09 13:31] LABS: Basophils Percent Auto 0.6 % (0.2-1.2); Eosinophils Absolute Auto 0.1 K/mm3 (0-0.3); Eosinophils Percent Auto 1.9 % (0-4.4); Hematocrit 40.6 % (37.0-47.0); Hemoglobin 13.1 g/dL (12.0-15.0); Immature Granulocyte Absolute 0.02 K/mm3 (0.00-0.031); Immature Granulocyte Percent A 0.3 % (0-0.5); Immature Reticulocyte Fraction 6.9 % (3.0-15.9); Lymphocytes Absolute Auto 1.91 K/mm3 (0.9-3.2); Lymphocytes Percent Auto 30.5 % (18.3-44.2); Mean Corpuscular HGB Conc 32.3 g/dl (32-36); Mean Corpuscular Hemoglobin 28.4 pg (26-34); Mean Corpuscular Volume 88.1 fl (80-100); Mean Platelet Volume 9.7 fl (7.4-10.4); Monocytes Absolute Auto 0.4 K/mm3 (0.1-0.6); Monocytes Percent Auto 6.5 % (2.6-8.5); Neutrophils Absolute Auto 3.8 K/mm3 (1.3-6.7); Neutrophils Percent Auto 60.2 % (45.5-73.1); Platelet Count Result 335 k/mm3 (150-375); Red Blood Count 4.61 M/mm3 (4.2-5.4); Red Cell Distribution Width 13.3 % (11.5-14.5); Reticulocytes Absolute 0.08 B/L (32.2-175.7); White Blood Count 6.3 K/mm3 (4.5-10.0)
[2022-07-09 13:44] LABS: Phosphorus 3.1 mg/dL (2.5-4.5)
[2022-07-09 15:39] LABS: Vitamin D 25 Hydroxy 33.2 ng/mL
[2022-07-09 15:50] LABS: Iron 35 ug/dL (37-170)
[2022-07-09 16:00] LABS: Percent Iron Saturation 9 % (20-50)
[2022-07-09 16:26] LABS: Ferritin 7.61 ng/mL (6.24-137)
== END 2022-07-09 13:07 | disposition home or self-care (01) ==
PROVIDERS: PCP Hospitalist; Referring Provider Internal Medicine Hematology & Oncology; Visit Provider Nurse Practitioner
DX: E21.5 Disorder of parathyroid gland, unspecified (principal); D50.9 Iron deficiency anemia, unspecified
CPT/HCPCS: 36415; 82306; 82310; 82728; 83540; 83550; 83970; 84100; 85025; 85046

== ENCOUNTER 2022-07-21 07:59 | Outpatient (CLI) | payer OTHER, SELFPAY ==
[2022-07-21 09:41] LABS: Appearance Urine Clear (Clear); Bilirubin Urine Negative (Negative); Blood Urine Trace-intact (Negative); Color Urine Yellow (Yellow); Glucose Urine UA Negative (Negative); Ketones Urine Trace mg/dL (Negative); Leukocyte Esterase Ur Negative LEU/UL (Negative); Nitrate Urine Negative (Negative); Protein Urine Negative (Negative); Specific Grav Ur >= 1.030 (1.001-1.035); Urobilinogen Urine 0.2 mg/dL (<2.0); pH Urine 5.5 (5.0-9.0)
[2022-07-21 09:48] LABS: Mucus Urine Few /lpf; RBC Urine 0-2 /hpf (0-2); Squamous Epithelial Cell Urine Few /hpf (Few); WBC Urine 0-3 /hpf
[2022-07-21 09:50] LABS: Add Urine Microscopic? YES
== END 2022-07-21 08:00 | disposition home or self-care (01) ==
PROVIDERS: PCP Hospitalist; Visit Provider Hospitalist
DX: R39.9 Unspecified symptoms and signs involving the genitourinary system (principal)
CPT/HCPCS: 81001

== ENCOUNTER 2022-07-30 11:22 | Outpatient (CLI) | payer OTHER, SELFPAY ==
[2022-08-03 06:16] LABS: FSH 1.9 mIU/mL (***)
[2022-08-06 19:48] LABS: Estradiol, Ultrasensitive 119 pg/mL
== END 2022-07-30 11:23 | disposition home or self-care (01) ==
PROVIDERS: PCP Hospitalist; Visit Provider Student in an Organized Health Care Education/Training Program
DX: N95.1 Menopausal and female climacteric states (principal)
CPT/HCPCS: 36415; 82670; 83001; 84443

== ENCOUNTER 2022-08-12 11:21 | Outpatient (CLI) | payer OTHER, SELFPAY ==
[2022-08-14 21:47] LABS: Progesterone 0.3 ng/mL (***)
[2022-08-19 10:40] LABS: Testosterone Total 35 ng/dL (2-45)
== END 2022-08-12 11:22 | disposition home or self-care (01) ==
LOC: ANHLAB 11:22
PROVIDERS: PCP Hospitalist; Visit Provider Student in an Organized Health Care Education/Training Program
DX: N64.4 Mastodynia (principal)
CPT/HCPCS: 36415; 84144; 84403

== ENCOUNTER 2022-08-19 10:32 | Outpatient (CLI) | payer OTHER, SELFPAY ==
--- NOTE | ~2022-08-19 | US_ITS ---
US breast LT limited INDICATION: Asymmetric vascularity in the left periareolar location on recent MRI examination. Ultras ound requested for further evaluation. Patient reportedly had diagnostic mammogram and left breast ul trasound on 06/20/2022 and follow-up routine screening mammogram is recommended. TECHNIQUE: Dedicated Limited left breast ultrasound COMPARISON: Report from MRI dated 08/18/2022 FINDINGS: The left breast is composed of normal heterogeneous echotexture without focal solid or cyst ic mass. No abnormal masses in the periareolar location of the left breast. IMPRESSION: 1: Normal Limited left breast ultrasound. Routine yearly screening mammogram and regular clinical breast examination are recommended. BI-RADS CATEGORY 1 - NEGATIVE Reviewed, dictated and finalized at location A. [facility]IC [employer] MAGISTRATE
== END 2022-08-19 10:33 | disposition home or self-care (01) ==
PROVIDERS: PCP Hospitalist; Visit Provider Hospitalist
DX: N64.4 Mastodynia (principal); R92.8 Other abnormal and inconclusive findings on diagnostic imaging of breast
CPT/HCPCS: 76642

== ENCOUNTER 2022-08-25 12:50 | Outpatient (CLI) | payer OTHER, SELFPAY ==
[2022-08-25 14:23] LABS: Basophils Percent Auto 0.7 % (0.2-1.2); Eosinophils Absolute Auto 0.1 K/mm3 (0-0.3); Eosinophils Percent Auto 1.8 % (0-4.4); Hematocrit 38.1 % (37.0-47.0); Immature Granulocyte Absolute 0.03 K/mm3 (0.00-0.031); Immature Granulocyte Percent A 0.5 % (0-0.5); Lymphocytes Absolute Auto 2.29 K/mm3 (0.9-3.2); Lymphocytes Percent Auto 40.3 % (18.3-44.2); Mean Corpuscular HGB Conc 31.5 g/dl (32-36); Mean Corpuscular Hemoglobin 27.9 pg (26-34); Mean Corpuscular Volume 88.6 fl (80-100); Mean Platelet Volume 9.9 fl (7.4-10.4); Monocytes Absolute Auto 0.5 K/mm3 (0.1-0.6); Neutrophils Absolute Auto 2.7 K/mm3 (1.3-6.7); Neutrophils Percent Auto 47.7 % (45.5-73.1); Platelet Count Result 298 k/mm3 (150-375); Red Cell Distribution Width 13.9 % (11.5-14.5); White Blood Count 5.7 K/mm3 (4.5-10.0)
[2022-08-25 16:57] LABS: Iron 23 ug/dL (37-170)
[2022-08-25 17:07] LABS: Percent Iron Saturation 6 % (20-50)
[2022-08-25 17:33] LABS: Ferritin 6.57 ng/mL (6.24-137)
== END 2022-08-25 12:51 | disposition home or self-care (01) ==
LOC: ANHLAB 12:53
PROVIDERS: PCP Hospitalist; Visit Provider Internal Medicine Hematology & Oncology
DX: D50.0 Iron deficiency anemia secondary to blood loss (chronic) (principal)
CPT/HCPCS: 36415; 82728; 83540; 83550; 85025

== ENCOUNTER 2022-09-02 15:20 | Emergency (ER) | payer OTHER, SELFPAY ==
--- NOTE | ~2022-09-02 | XR_ITS ---
EXAMINATION: XR chest 2V Exam Date/Time: 09/02/2022 21:57 AERONAUTICAL DESIGN ENGINEER HISTORY: L breast pain X3mos, Pain into surrounding left chest area Comparison: 03/14/2022. RESULT: Lines, tubes, and devices: None. Lungs and pleura: Clear. Cardiomediastinal silhouette: Stable. Other: No acute osseous or upper abdominal finding. IMPRESSION: No acute cardiopulmonary process. Reviewed, dictated and finalized at location K. NAUTICAL DESIGN ENGINEER
[2022-09-02 15:49] VITALS: BP 157/98; PULSE 86; RESP 14; TEMP 37.1; O2SAT 100
--- NOTE | 2022-09-02 20:56 | ED.GENADULT ---
HPI - General Adult General Chief complaint: Unspecified Stated complaint: left breast pain Time Seen by Provider: 09/02/22 20:16 Source: patient Mode of arrival: ambulatory Limitations: no limitations History of Present Illness HPI narrative: Patient is a 37-year-old female who presents to the ED with report of left breast pain. Patient reports having pain intermittently for the past 2 to 3 months. She has been taking Tylenol and Motrin for this. She has seen several specialists for this including a general surgeon, a breast surgeon, and her statistical methods teacher. She has had a negative outpatient stress test, negative breast MRI, ultrasound, and mammogram. Patient denies any personal or family history of breast cancer. She has not noticed any lumps or abnormal lymph nodes. Pain worse with certain movements and pressing on her chest wall. She denies any rash, fever, redness, swelling, difficulty breathing, abdominal pain, nausea, vomiting, trauma to her breast. Related Data Allergies Allergy/AdvReac Type Severity Reaction Status Date / Time NSAIDS (Non-Steroidal AdvReac Mild Other Verified 07/29/22 11:06 Anti-Inflamma Review of Systems Review of Systems: CONSTITUTIONAL: Denies fever, chills, or sweats. CARDIOVASCULAR: See HPI. RESPIRATORY: Denies cough or dyspnea. GASTROINTESTINAL: Denies abdominal pain, nausea, vomiting. MUSCULOSKELETAL: See HPI. NEUROLOGIC: Denies headache, numbness, or weakness. All systems reviewed & are unremarkable except as noted in HPI and below PMFSH Past Medical History Medical History Anemia Anxiety Arthritis GERD (gastroesophageal reflux disease) Hypothyroidism Morbid obesity Surgical History Surgical History delivery delivered x5 H/O tubal ligation 2013 History of sleeve gastrectomy 2016 Family History Family History Unknown No pertinent family history Social History Social History Smoking status: Never smoker Second hand tobacco smoke exposure: No Alcohol intake: never Substance use: never Substance use type: does not use Living arrangements: with family Occupation/Education: unemployed Gender identity (if verbalized by the patient): Female Sexual Orientation (if Verbalized by the Patient): Straight or Heterosexual Spiritual care concerns: No Exam Narrative: GENERAL: Well appearing, morbidly obese, non-toxic, in no acute distress. HEAD: Normocephalic, atraumatic. NECK: Supple. No adenopathy, no masses. BREAST: No obvious breast abnormality on basic observation. No nipple discharge or nipple inversion. No erythema, swelling, warmth, rash noted to L breast. No peau d orange changes. No lumps noted. No axillary lymphadenopathy. Minimal tenderness along L lower inner breast line/chest wall. RESPIRATORY: Airway patent, respirations nonlabored. Clear to auscultation bilaterally, no rales, rhonchi, wheezing. No splinting. CARDIOVASCULAR: Regular rate and rhythm without murmurs, rubs, or gallops. Peripheral pulses 2+ and equal bilaterally. ABDOMINAL: Soft, nontender, nondistended, no hepatosplenomegaly. Normoactive BS. MUSCULOSKELETAL: Moves all extremities. Strength/ROM intact without gross deformities. Area of tenderness to midsternal chest wall. SKIN: Warm, dry, normal color. No rashes. NEURO: A&O X3. Speech clear. Cranial nerves II-XII grossly intact. Steady gait. No ataxic movements. PSYCHIATRIC: Mildly anxious. Normal interaction. Course Vital Signs Vital signs: Vital Signs Temperature 98.7 F 09/02/22 15:49 Pulse Rate 86 09/02/22 15:49 Respiratory Rate 14 09/02/22 15:49 Blood Pressure 157/98 H 09/02/22 15:49 Pulse Oximetry 100 09/02/22 15:49 Oxygen Delivery Room Air 09/02/22 15:49
--- NOTE | 2022-09-02 20:57 | ECG_ITS ---
Measurements Intervals Avinger Rate: 65 P: 34 IN: 171 QRS: 31 QRSD: 104 T: 43 QT: 362 QTc: 378 Interpretive Statements SINUS RHYTHM BASELINE ARTIFACT- I, II, III, AVR, AVL, AVF NORMAL ECG COMPARED TO ECG 03/18/2022 13:09:33 NO SIGNIFICANT CHANGES Electronically Signed On 09-03-2022 6:36:01 DAIRY FARMWORKER by Enrico Gutierres D.O.
[2022-09-02] MEDS: KETOROLAC 30 MG/ML VIAL (*BKC) IV PUSH (21:14)
[2022-09-02 21:23] LABS: Basophils Absolute Auto 0.1 K/mm3 (0.0-0.1); Basophils Percent Auto 0.9 % (0.2-1.2); Eosinophils Absolute Auto 0.2 K/mm3 (0-0.3); Hematocrit 39.8 % (37.0-47.0); Hemoglobin 12.9 g/dL (12.0-15.0); Immature Granulocyte Absolute 0.04 K/mm3 (0.00-0.031); Immature Granulocyte Percent A 0.5 % (0-0.5); Lymphocytes Absolute Auto 2.44 K/mm3 (0.9-3.2); Lymphocytes Percent Auto 29.8 % (18.3-44.2); Mean Corpuscular HGB Conc 32.4 g/dl (32-36); Mean Corpuscular Hemoglobin 28.1 pg (26-34); Mean Corpuscular Volume 86.7 fl (80-100); Mean Platelet Volume 9.4 fl (7.4-10.4); Monocytes Absolute Auto 0.5 K/mm3 (0.1-0.6); Neutrophils Percent Auto 60.8 % (45.5-73.1); Platelet Count Result 364 k/mm3 (150-375); Red Blood Count 4.59 M/mm3 (4.2-5.4); Red Cell Distribution Width 13.7 % (11.5-14.5); White Blood Count 8.2 K/mm3 (4.5-10.0)
[2022-09-02 21:40] LABS: Alanine Aminotransferase 36 U/L (6-35); Albumin Level 4.7 g/dL (3.5-5.1); Alkaline Phosphatase 91 U/L (38-126); Anion Gap 7 mmol/L (8-16); Aspartate Amino Transferase 30 U/L (14-36); Bilirubin,Total 0.5 mg/dL (0.2-1.3); Blood Urea Nitrogen 17 mg/dL (7-17); Calcium 8.9 mg/dL (8.4-10.2); Carbon Dioxide 26 mmol/L (22-30); Chloride 106 mmol/L (98-107); Estimated CRCL calculation 133 ml/min; Estimated Glomerular Filt Rate > 60; Glucose 124 mg/dL (65-110); Potassium 3.6 mmol/L (3.4-5.0); Sodium 139 mmol/L (137-145)
[2022-09-02 21:50] LABS: D Dimer 0.48 ug/mL (<0.48); Troponin I < 0.012 ng/mL (0.000-0.034)
== END 2022-09-02 23:40 | disposition home or self-care (01) ==
PROVIDERS: Emergency Provider Physician Assistant; PCP Hospitalist
DX: N64.4 Mastodynia (principal); D64.9 Anemia, unspecified; F41.9 Anxiety disorder, unspecified; M19.90 Unspecified osteoarthritis, unspecified site; K21.9 Gastro-esophageal reflux disease without esophagitis; E03.9 Hypothyroidism, unspecified
CPT/HCPCS: 36415; 71046; 80053; 84484; 85025; 85380; 93005; 96374; 99284; J1885

== ENCOUNTER 2022-09-09 11:27 | Outpatient (CLI) | payer OTHER, SELFPAY ==
[2022-09-09 12:26] LABS: Influenza A QL RT-PCR Negative (Negative); Influenza B QL RT-PCR Negative (Negative); RSV RNA, RT-PCR Negative (Negative); SARS-CoV-2 RNA PCR Negative
== END 2022-09-09 11:28 | disposition home or self-care (01) ==
LOC: ANHLAB 11:29
PROVIDERS: PCP Hospitalist; Visit Provider Hospitalist
DX: R58 Hemorrhage, not elsewhere classified (principal); Z20.822 Contact with and (suspected) exposure to COVID-19
CPT/HCPCS: 87637

== ENCOUNTER 2022-10-08 09:11 | Outpatient (CLI) | payer OTHER, SELFPAY ==
--- NOTE | ~2022-10-08 | US_ITS ---
EXAMINATION: US right upper quadrant DATE: 10/08/2022 09:52 INDICATION: Nausea and vomiting. TECHNIQUE: Multiple grayscale and Doppler ultrasound images of the abdomen were obtained. COMPARISON: CT abdomen and pelvis 04/07/2022 FINDINGS: The visualized portions of the head and body of the pancreas are normal. There is diffuse h epatic steatosis. There is normal flow in main portal vein. The gallbladder is normal in size. No gal lstones or gallbladder wall thickening. There is no sonographic Wray sign. The common duct is amos l and measures 4 mm. IMPRESSION: 1. Diffuse hepatic steatosis. Reviewed, dictated and finalized at location A.
== END 2022-10-08 09:12 | disposition home or self-care (01) ==
PROVIDERS: PCP Hospitalist
DX: R11.0 Nausea (principal); K76.0 Fatty (change of) liver, not elsewhere classified
CPT/HCPCS: 76705

== ENCOUNTER 2022-10-13 11:31 | Outpatient (CLI) | payer OTHER, SELFPAY ==
[2022-10-13 12:41] LABS: Hepatitis B Surface Antigen Negative (Negative)
[2022-10-13 12:46] LABS: HAV RESULT Negative (Negative)
[2022-10-13 12:50] LABS: HIV 1/2 Ab P24 Ag Result Negative (Negative)
[2022-10-13 12:58] LABS: Hepatitis C Virus Antibody Negative (Negative)
[2022-10-14 11:28] LABS: Rapid Plasma Reagin Non-Reactive (NonReactive)
== END 2022-10-13 11:32 | disposition home or self-care (01) ==
PROVIDERS: PCP Hospitalist; Visit Provider Student in an Organized Health Care Education/Training Program
DX: A64 Unspecified sexually transmitted disease (principal)
CPT/HCPCS: 36415; 86592; 86695; 86696; 86703; 86709; 86803; 87340; 87491; 87591; G0432

== ENCOUNTER 2022-10-27 13:54 | Outpatient (CLI) | payer OTHER, SELFPAY ==
--- NOTE | ~2022-10-27 | US_ITS ---
EXAMINATION: US pelvic complete DATE: 10/27/2022 15:47 INDICATION: Pelvic and perineal pain. TECHNIQUE: Multiple transabdominal sonographic images of the pelvis were obtained. COMPARISON: CT abdomen and pelvis 04/07/2022 FINDINGS: The uterus measures 11.0 x 6.1 x 4.2 cm. There is no free fluid in the pelvis. The endometrial comple x measures 3 mm in thickness. The right ovary is not visualized. The left ovary measures 4.7 x 4.1 x 4.6 cm. There is normal vascular flow in left ovary. There is a 3.7 cm cystic mass with low level ech oes in left ovary, likely a hemorrhagic cyst. IMPRESSION: 1. 3.6 cm hemorrhagic cyst in left ovary. 2. Right ovary not visualized. Reviewed, dictated and finalized at location A.
== END 2022-10-27 13:55 | disposition home or self-care (01) ==
LOC: ANHIMG 13:54
PROVIDERS: PCP Hospitalist; Visit Provider Hospitalist
DX: R10.2 Pelvic and perineal pain (principal); N83.202 Unspecified ovarian cyst, left side
CPT/HCPCS: 76856

== ENCOUNTER 2022-12-01 20:42 | Emergency (ER) | payer OTHER, SELFPAY ==
[2022-12-01 20:44] VITALS: BP 124/83; PULSE 110; RESP 16; TEMP 36.7; O2SAT 99
[2022-12-01 20:56] VITALS: BP 128/80; PULSE 96; RESP 19; TEMP 36.8; O2SAT 100
--- NOTE | 2022-12-01 21:49 | ED.SKABFB ---
HPI - Skin/Abscess/Foreign Bdy General Chief complaint: Skin/Abscess/Foreign Body Stated complaint: cellulitis? Time Seen by Provider: 12/01/22 20:48 History of Present Illness HPI narrative: Patient is a 37-year-old female presenting with left leg pain. Patient states that for the last 2 days she has had redness and pain in her left calf. States that it looks similar to a prior episode of cellulitis. States that she feels generally weak. Denies fevers or chills, numbness or weakness, chest pain, shortness of breath, abdominal pain, vomiting, leg swelling. Related Data Home Medications Medication Instructions Recorded Confirmed lorazepam 1 mg tablet 1 mg PO PRN 10/01/22 Allergies Allergy/AdvReac Type Severity Reaction Status Date / Time NSAIDS (Non-Steroidal AdvReac Mild Other Verified 12/01/22 20:55 Anti-Inflamma Review of Systems Review of Systems: All systems reviewed & are unremarkable except as noted in HPI and below PMFSH Past Medical History Medical History Anemia Anxiety Arthritis MAYES (dyspnea on exertion) GERD (gastroesophageal reflux disease) Vern's thyroiditis Hypothyroidism Mastalgia Menopausal symptoms Morbid obesity PCOS (polycystic ovarian syndrome) Surgical History Surgical History delivery delivered x5 H/O tubal ligation 2013 History of sleeve gastrectomy 2016 Family History Family History Unknown No pertinent family history Social History Social History Smoking status: Never smoker Second hand tobacco smoke exposure: No Alcohol intake: never Substance use: never Substance use type: does not use Living arrangements: with family Occupation/Education: unemployed Gender identity (if verbalized by the patient): Female Sexual Orientation (if Verbalized by the Patient): Straight or Heterosexual Spiritual care concerns: No Exam Narrative: GENERAL: Well-appearing, well-nourished, and in no acute distress. HEAD: Normocephalic, atraumatic. EYES: PERRLA and EOMI. ENT: Nares clear, no rhinorrhea or epistaxis. Mucous membranes moist. NECK: Supple. CHEST: Clear to auscultation. No respiratory distress. HEART: Regular rate and rhythm. Normal peripheral pulses. ABDOMEN: Soft, nontender, nondistended EXTREMITIES: Normal range of motion. No edema. SKIN: Warm, dry, +circumferential erythema involving left lower extremity, warm to touch, tender; no edema, no abscesses, no crepitus, compartments are soft, distal pulses 2+ NEURO: No focal deficits. Alert and oriented x3. PSYCH: Normal mood and affect. Course Vital Signs Vital signs: Vital Signs Temperature 98.0 F 12/01/22 20:44 Pulse Rate 110 H 12/01/22 20:44 Respiratory Rate 16 12/01/22 20:44 Blood Pressure 124/83 12/01/22 20:44 Pulse Oximetry 99 12/01/22 20:44 Oxygen Delivery Room Air 12/01/22 20:44 Temperature 98.3 F 12/01/22 20:56 Pulse Rate 88 12/01/22 22:01 Respiratory Rate 17 12/01/22 22:01 Blood Pressure 144/75 H 12/01/22 22:01 Pulse Oximetry 100 12/01/22 22:01 Oxygen Delivery Room Air 12/01/22 20:44 MDM - Skin/Abscess/Foreign Bdy MDM Narrative Medical decision making narrative: Patient is a 37-year-old female presenting with concerns for cellulitis affecting her left leg. Vitals within normal limits. Patient is well-appearing and in no acute distress. Exam remarkable for the above. Consistent with cellulitis affecting the left lower extremity. There is no lymphangitic spread, no evidence of deeper soft tissue infection. I am not concerned for DVT at this time. We will start the patient on Keflex, Bactrim. Advised close PCP follow-up. Appropriate return precautions given. Patient voiced understanding
[2022-12-01] MEDS: CEPHALEXIN 500 MG CAPSULE PO (21:58)
[2022-12-01] MEDS: ACETAMINOPHEN 500 MG TABLET 1000 MG PO (21:58)
[2022-12-01] MEDS: SULFAMETHOXAZOLE/TRIMETHOPRIM 800/160 MG DS TABLET 1 TAB PO (21:58)
[2022-12-01 22:01] VITALS: BP 144/75; PULSE 88; RESP 17; O2SAT 100
== END 2022-12-01 22:05 | disposition home or self-care (01) ==
PROVIDERS: Emergency Provider Emergency Medicine; PCP Hospitalist
DX: L03.116 Cellulitis of left lower limb (principal); E06.3 Autoimmune thyroiditis; E03.9 Hypothyroidism, unspecified; E28.2 Polycystic ovarian syndrome; K21.9 Gastro-esophageal reflux disease without esophagitis; E66.01 Morbid (severe) obesity due to excess calories; Z68.41 Body mass index [BMI] 40.0-44.9, adult; F41.9 Anxiety disorder, unspecified; Z98.84 Bariatric surgery status
CPT/HCPCS: 99283; A9270

== ENCOUNTER 2023-01-28 14:38 | Outpatient (CLI) | payer OTHER, SELFPAY ==
[2023-01-28 07:24] LABS: Basophils Absolute Auto 0.1 K/mm3 (0.0-0.1); Basophils Percent Auto 0.7 % (0.2-1.2); Eosinophils Absolute Auto 0.1 K/mm3 (0-0.3); Eosinophils Percent Auto 1.2 % (0-4.4); Hemoglobin 12.7 g/dL (12.0-15.0); Immature Granulocyte Absolute 0.04 K/mm3 (0.00-0.031); Immature Granulocyte Percent A 0.5 % (0-0.5); Lymphocytes Absolute Auto 1.96 K/mm3 (0.9-3.2); Lymphocytes Percent Auto 26.1 % (18.3-44.2); Mean Corpuscular HGB Conc 31.8 g/dl (32-36); Mean Corpuscular Hemoglobin 29.1 pg (26-34); Mean Corpuscular Volume 91.7 fl (80-100); Mean Platelet Volume 9.5 fl (7.4-10.4); Monocytes Absolute Auto 0.4 K/mm3 (0.1-0.6); Monocytes Percent Auto 5.7 % (2.6-8.5); Neutrophils Absolute Auto 4.9 K/mm3 (1.3-6.7); Neutrophils Percent Auto 65.8 % (45.5-73.1); Platelet Count Result 300 k/mm3 (150-375); Red Blood Count 4.36 M/mm3 (4.2-5.4); Red Cell Distribution Width 13.2 % (11.5-14.5); White Blood Count 7.5 K/mm3 (4.5-10.0)
[2023-01-28 08:03] LABS: Iron 99 ug/dL (37-170)
[2023-01-28 08:12] LABS: Percent Iron Saturation 27 % (20-50)
[2023-01-28 16:46] LABS: HIV 1/2 Ab P24 Ag Result Negative (Negative)
[2023-01-28 17:53] LABS: Hepatitis B Surface Antigen Negative (Negative)
[2023-01-28 17:58] LABS: HAV RESULT Negative (Negative)
[2023-01-28 18:04] LABS: Free T4 Free Thyroxine 0.88 ng/mL (0.78-2.19); Vitamin D 25 Hydroxy 23.4 ng/mL
[2023-01-28 18:11] LABS: Hepatitis C Virus Antibody Negative (Negative)
[2023-01-29 07:58] LABS: Rapid Plasma Reagin Non-Reactive (NonReactive)
== END 2023-01-28 14:39 | disposition home or self-care (01) ==
PROVIDERS: PCP Hospitalist; Referring Provider Student in an Organized Health Care Education/Training Program; Visit Provider Internal Medicine Hematology & Oncology
DX: D50.0 Iron deficiency anemia secondary to blood loss (chronic) (principal); A64 Unspecified sexually transmitted disease; Z01.419 Encounter for gynecological examination (general) (routine) without abnormal findings
CPT/HCPCS: 36415; 82306; 82607; 82728; 83540; 83550; 84439; 84443; 85025; 86592; 86695; 86696; 86703; 86709; 86803; 87340; 87491; 87591; G0432

== ENCOUNTER 2023-02-10 06:39 | Outpatient (CLI) | payer OTHER, SELFPAY | END 2023-02-10 06:40 | disposition home or self-care (01) | LOC: ANHLAB 06:40 | PROVIDERS: PCP Hospitalist; Visit Provider Student in an Organized Health Care Education/Training Program | DX: A64 Unspecified sexually transmitted disease (principal) | CPT/HCPCS: 36415; 86695; 86696 ==

== ENCOUNTER 2023-02-25 07:04 | Outpatient (CLI) | payer OTHER, SELFPAY ==
[2023-02-25 08:54] LABS: Basophils Percent Auto 0.6 % (0.2-1.2); Eosinophils Absolute Auto 0.1 K/mm3 (0-0.3); Eosinophils Percent Auto 1.8 % (0-4.4); Hematocrit 39.6 % (37.0-47.0); Hemoglobin 12.5 g/dL (12.0-15.0); Immature Granulocyte Absolute 0.04 K/mm3 (0.00-0.031); Immature Granulocyte Percent A 0.6 % (0-0.5); Lymphocytes Absolute Auto 1.82 K/mm3 (0.9-3.2); Lymphocytes Percent Auto 26.8 % (18.3-44.2); Mean Corpuscular HGB Conc 31.6 g/dl (32-36); Mean Corpuscular Hemoglobin 28.9 pg (26-34); Mean Corpuscular Volume 91.5 fl (80-100); Mean Platelet Volume 9.9 fl (7.4-10.4); Monocytes Absolute Auto 0.4 K/mm3 (0.1-0.6); Monocytes Percent Auto 6.3 % (2.6-8.5); Neutrophils Absolute Auto 4.3 K/mm3 (1.3-6.7); Neutrophils Percent Auto 63.9 % (45.5-73.1); Platelet Count Result 316 k/mm3 (150-375); Red Blood Count 4.33 M/mm3 (4.2-5.4); Red Cell Distribution Width 13.3 % (11.5-14.5); White Blood Count 6.8 K/mm3 (4.5-10.0)
[2023-02-25 10:04] LABS: Iron 105 ug/dL (37-170)
[2023-02-25 10:34] LABS: Percent Iron Saturation 29 % (20-50)
[2023-02-25 10:41] LABS: Ferritin 9.07 ng/mL (6.24-137)
== END 2023-02-25 07:05 | disposition home or self-care (01) ==
LOC: ANHLAB 07:05
PROVIDERS: PCP Hospitalist; Visit Provider Internal Medicine Hematology & Oncology
DX: D50.0 Iron deficiency anemia secondary to blood loss (chronic) (principal)
CPT/HCPCS: 36415; 82728; 83540; 83550; 85025

== ENCOUNTER 2023-03-11 06:37 | Outpatient (CLI) | payer OTHER, SELFPAY ==
[2023-03-11 09:36] LABS: Trichomonas Vag PCR NOT DETECTED (NOT DETECTE)
[2023-03-11 10:00] LABS: Chlamydia trachomatis NOT DETECTED (NOT DETECTE); Neisseria gonorrhoeae PCR NOT DETECTED (NOT DETECTE)
== END 2023-03-11 06:38 | disposition home or self-care (01) ==
PROVIDERS: PCP Hospitalist; Visit Provider Obstetrics & Gynecology
DX: A64 Unspecified sexually transmitted disease (principal)
CPT/HCPCS: 87491; 87591; 87661

== ENCOUNTER 2023-04-27 07:02 | Outpatient (CLI) | payer OTHER, SELFPAY ==
[2023-04-27 08:35] LABS: Influenza A QL RT-PCR Negative (Negative); Influenza B QL RT-PCR Negative (Negative); RSV RNA, RT-PCR Negative (Negative); SARS-CoV-2 RNA PCR Positive (Negative)
== END 2023-04-27 07:03 | disposition home or self-care (01) ==
PROVIDERS: PCP Hospitalist; Visit Provider Hospitalist
DX: U07.1 COVID-19 (principal)
CPT/HCPCS: 87637

== ENCOUNTER 2023-08-03 16:29 | Emergency (ER) | payer OTHER, SELFPAY ==
[2023-08-03 16:34] VITALS: BP 130/79; PULSE 78; RESP 20; TEMP 38.1; O2SAT 100
[2023-08-03 16:40] VITALS: BP 147/58; PULSE 61; RESP 20; TEMP 36.7; O2SAT 100
--- NOTE | 2023-08-03 17:03 | ED.FEMALEGU ---
HPI - Female Genitourinary General Chief complaint: Urogenital-Female Stated complaint: Pain when urinating History of Present Illness HPI Narrative: Patient presents with low abdominal pressure and burning with urination. Patient denies any flank pain no pelvic pain no gross hematuria. Patient states she is taking azo for her symptoms with minimal relief. Related Data Allergies Allergy/AdvReac Type Severity Reaction Status Date / Time NSAIDS (Non-Steroidal AdvReac Mild Other Verified 08/03/23 16:45 Anti-Inflamma Review of Systems Review of Systems: CONSTITUTIONAL: Denies fever, chills, or sweats. EYES: Denies visual changes, redness, or discharge. ENT: Denies rhinorrhea, congestion, sore throat, or otalgia. CARDIOVASCULAR: Denies chest pain, palpitations, or edema. RESPIRATORY: Denies cough or dyspnea. GASTROINTESTINAL: Denies abdominal pain, nausea, vomiting, or diarrhea. GENITOURINARY: Denies dysuria or hematuria. SKIN: Denies rash or itching. MUSCULOSKELETAL: Denies back pain, joint pain, or myalgia. NEUROLOGIC: Denies headache, numbness, or weakness. PSYCHIATRIC: Denies anxiety or depression. [facility] Past Medical History Medical History Anemia Anxiety Arthritis MAYES (dyspnea on exertion) GERD (gastroesophageal reflux disease) Vern's thyroiditis Hypothyroidism Mastalgia Menopausal symptoms Morbid obesity PCOS (polycystic ovarian syndrome) Surgical History Surgical History delivery delivered x5 H/O tubal ligation 2013 History of sleeve gastrectomy 2016 Family History Family History Unknown No pertinent family history Social History Social History Smoking status: Never smoker Second hand tobacco smoke exposure: No Alcohol intake: never Substance use: never Substance use type: does not use Living arrangements: with family Occupation/Education: unemployed Gender identity (if verbalized by the patient): Female Sexual Orientation (if Verbalized by the Patient): Straight or Heterosexual Spiritual care concerns: No Comments At time of signature, agree with nursing past medical, surgical, social and family history. There is no relevant family history pertinent to the presenting complaint Exam Narrative: GENERAL: Well-appearing, well-nourished, and in no acute distress. HEAD: Normocephalic, atraumatic. EYES: PERRLA and EOMI. ENT: Nares clear, no rhinorrhea or epistaxis. Mucous membranes moist. NECK: Supple. CHEST: Clear to auscultation. No respiratory distress. HEART: Regular rate and rhythm. No murmur heard. Normal peripheral pulses. ABDOMEN: Soft, nontender, nondistended, normal active bowel sounds. No pelvic pain no flank pain no abdominal pain EXTREMITIES: Normal range of motion. No edema. SKIN: Warm, dry, no rash. NEURO: No focal deficits. Alert and oriented x3. Drummond Coma Scale Eye Opening: Spontaneous 4 Drummond Coma Scale Motor: Obeys Commands 6 Drummond Coma Scale Verbal: Oriented 5 Drummond Coma Scale Total 15 Course Course Level of Care: Express Care Visit Vital Signs Vital signs: Vital Signs Temperature 36.7 C 08/03/23 16:40 Pulse Rate 61 08/03/23 16:40 Respiratory Rate 20 08/03/23 16:40 Blood Pressure 147/58 H 08/03/23 16:40 Pulse Oximetry 100 08/03/23 16:40 Oxygen Delivery Room Air 08/03/23 16:40 Temperature 36.7 C 08/03/23 16:40 Pulse Rate 61 08/03/23 16:40 Respiratory Rate 20 08/03/23 16:40 Blood Pressure 147/58 H 08/03/23 16:40 Pulse Oximetry 100 08/03/23 16:40 Oxygen Delivery Room Air 08/03/23 16:40 Please ADDIE schedule a followup visit with your personal physician for further evaluation and treatment. Including recheck and discussion of your blood pressure. If your sy
== END 2023-08-03 17:13 | disposition home or self-care (01) ==
PROVIDERS: Emergency Provider Nurse Practitioner Family; PCP Hospitalist
DX: R30.0 Dysuria (principal); M19.90 Unspecified osteoarthritis, unspecified site; K21.9 Gastro-esophageal reflux disease without esophagitis; E06.3 Autoimmune thyroiditis; E03.9 Hypothyroidism, unspecified; E66.01 Morbid (severe) obesity due to excess calories; E28.2 Polycystic ovarian syndrome; Z98.84 Bariatric surgery status; D64.9 Anemia, unspecified
CPT/HCPCS: 81003; 87086; 99213; G0463

== ENCOUNTER 2023-08-28 17:19 | Outpatient (CLI) | payer OTHER, SELFPAY ==
[2023-08-28 17:43] LABS: Basophils Percent Auto 0.6 % (0.2-1.2); Eosinophils Absolute Auto 0.1 K/mm3 (0-0.3); Eosinophils Percent Auto 1.2 % (0-4.4); Hematocrit 35.9 % (37.0-47.0); Hemoglobin 10.9 g/dL (12.0-15.0); Immature Granulocyte Absolute 0.04 K/mm3 (0.00-0.031); Immature Granulocyte Percent A 0.6 % (0-0.5); Lymphocytes Absolute Auto 2.38 K/mm3 (0.9-3.2); Lymphocytes Percent Auto 34.4 % (18.3-44.2); Mean Corpuscular HGB Conc 30.4 g/dl (32-36); Mean Corpuscular Hemoglobin 24.8 pg (26-34); Mean Corpuscular Volume 81.6 fl (80-100); Mean Platelet Volume 9.9 fl (7.4-10.4); Monocytes Absolute Auto 0.5 K/mm3 (0.1-0.6); Monocytes Percent Auto 7.4 % (2.6-8.5); Neutrophils Absolute Auto 3.9 K/mm3 (1.3-6.7); Neutrophils Percent Auto 55.8 % (45.5-73.1); Platelet Count Result 369 k/mm3 (150-375); Red Cell Distribution Width 14.9 % (11.5-14.5); White Blood Count 6.9 K/mm3 (4.5-10.0)
[2023-08-28 17:53] LABS: Alanine Aminotransferase 50 U/L (6-35); Albumin Level 4.3 g/dL (3.5-5.1); Alkaline Phosphatase 110 U/L (38-126); Anion Gap 6 mmol/L (8-16); Aspartate Amino Transferase 54 U/L (14-36); Bilirubin,Total 0.4 mg/dL (0.2-1.3); Blood Urea Nitrogen 11 mg/dL (7-17); Calcium 9.2 mg/dL (8.4-10.2); Carbon Dioxide 28 mmol/L (22-30); Chloride 106 mmol/L (98-107); Estimated Glomerular Filt Rate > 60; Glucose 118 mg/dL (65-110); Sodium 140 mmol/L (137-145)
[2023-08-28 21:05] LABS: Iron 34 ug/dL (37-170)
[2023-08-28 21:19] LABS: Percent Iron Saturation 9 % (20-50)
[2023-08-28 21:41] LABS: Ferritin 6.94 ng/mL (6.24-137)
[2023-08-28 23:03] LABS: Folic Acid 5.4 ng/mL (2.76->20)
== END 2023-08-28 17:20 | disposition home or self-care (01) ==
LOC: ANHLAB 17:22
PROVIDERS: PCP Hospitalist; Visit Provider Internal Medicine Hematology & Oncology
DX: D51.3 Other dietary vitamin B12 deficiency anemia (principal); D50.0 Iron deficiency anemia secondary to blood loss (chronic)
CPT/HCPCS: 36415; 80053; 82607; 82728; 82746; 83540; 83550; 85025

== ENCOUNTER 2023-11-02 17:14 | Emergency (ER) | payer OTHER, SELFPAY ==
[2023-11-02 17:25] VITALS: BP 133/60; PULSE 74; RESP 16; TEMP 37.6; O2SAT 100
--- NOTE | 2023-11-02 17:32 | ED.URI ---
HPI - URI/Sore Throat General Chief Complaint: Upper Respiratory Infection Stated Complaint: Ear Pain/Headache/Dizziness Time Seen by Provider: 11/02/23 17:32 Source: patient, RN notes reviewed and old records reviewed Mode of arrival: ambulatory Limitations: no limitations History of Present Illness HPI Narrative: 38 year old female presents to [facility] care with complaints of headache, nausea, dizziness, stuffy nose and ear pain for the past week. Patient reports that she has been taking Sudafed and also using Flonase nasal spray for her symptoms without relief. Patient reports some nausea but denies any episodes of vomiting or diarrhea. Patient reports no know fevers, chills or sweats or any bdy aches. Patient denies any cough or congestion or any shortness of breath. MD elicited complaint: rhinorrhea, nasal congestion and other (headache, nausea,ear pain and dizziness) Onset (ago): week(s) (1) Severity: moderate Description of mucous: clear Able to tolerate fluids by mouth: Yes Treatments prior to arrival: other (Flonase and Sudafed) Related Data Allergies Allergy/AdvReac Type Severity Reaction Status Date / Time NSAIDS (Non-Steroidal AdvReac Mild Other Verified 09/10/23 10:29 Anti-Inflamma Review of Systems Review of Systems: CONSTITUTIONAL: Denies malaise, chills, sweats, or fever. EYES: Denies visual changes, redness, or discharge. ENT: Reports rhinorrhea, congestion,no sinus pain, positive for otalgia and no sore throat. CARDIOVASCULAR: Denies chest pain, palpitations, or edema. RESPIRATORY: Reports no cough.? Denies dyspnea. GASTROINTESTINAL: Denies abdominal pain,positive for nausea,no vomiting, diarrhea SKIN: Denies rash or itching. MUSCULOSKELETAL: Denies myalgia. NEUROLOGIC: Positive headache. All systems reviewed & are unremarkable except as noted in HPI and below PMFSH Past Medical History Medical History Anemia Anxiety Arthritis MAYES (dyspnea on exertion) GERD (gastroesophageal reflux disease) Vern's thyroiditis Hypothyroidism Mastalgia Menopausal symptoms Morbid obesity PCOS (polycystic ovarian syndrome) Surgical History Surgical History delivery delivered x5 H/O tubal ligation 2013 History of sleeve gastrectomy 2016 Family History Family History Unknown No pertinent family history Social History Social History Smoking status: Never smoker Second hand tobacco smoke exposure: No Alcohol intake: never Substance use: never Substance use type: does not use Living arrangements: with family Occupation/Education: unemployed Gender identity (if verbalized by the patient): Female Sexual Orientation (if Verbalized by the Patient): Straight or Heterosexual Spiritual care concerns: No Comments At time of signature, agree with nursing past medical, surgical, social and family history. There is no relevant family history pertinent to the presenting complaint Exam Narrative: GENERAL: Well-appearing, well-nourished, and in no acute distress. HEAD: Normocephalic EYES: PERRLA, conjunctivae clear ENT: Nares clear, turbinates edematous and erythematous, clear discharge. Mucous membranes moist.left TM red and bulging, Right TM pearly hyatt with dull light reflex; no tragal tenderness. Oropharynx erythematous without lesions. Tonsils not enlarged and without exudate, no drooling, no hoarseness, no trismus, uvula midline. NECK: Supple. No lymphadenopathy CHEST: Clear to auscultation, breath sounds equal. No wheezing, rhonchi, rales, or stridor. No respiratory distress, speaks in full sentences.SAO2 100% on room air HEART: Regular rate and rhythm. No murmur heard. SKIN: Warm, dry, no rash. NEURO: Alert and oriented x3.
== END 2023-11-02 17:51 | disposition home or self-care (01) ==
PROVIDERS: Emergency Provider Registered Nurse; PCP Hospitalist
DX: H66.92 Otitis media, unspecified, left ear (principal); R11.0 Nausea; K21.9 Gastro-esophageal reflux disease without esophagitis; E06.3 Autoimmune thyroiditis; E03.9 Hypothyroidism, unspecified; E66.01 Morbid (severe) obesity due to excess calories; E28.2 Polycystic ovarian syndrome; Z98.84 Bariatric surgery status
CPT/HCPCS: 99213; G0463

== ENCOUNTER 2024-04-05 16:34 | Outpatient (CLI) | payer OTHER, SELFPAY ==
[2024-04-05 17:24] LABS: Hematocrit 39.4 % (37.0-47.0); Hemoglobin 12.9 g/dL (12.0-15.0); Mean Corpuscular HGB Conc 32.7 g/dl (32-36); Mean Corpuscular Hemoglobin 28.5 pg (26-34); Mean Corpuscular Volume 87.2 fl (80-100); Mean Platelet Volume 9.9 fl (7.4-10.4); Platelet Count Result 307 k/mm3 (150-375); Red Blood Count 4.52 M/mm3 (4.2-5.4); Red Cell Distribution Width 13.5 % (11.5-14.5); White Blood Count 6.7 K/mm3 (4.5-10.0)
[2024-04-05 17:31] LABS: Iron 44 ug/dL (37-170)
[2024-04-05 17:41] LABS: Percent Iron Saturation 11 % (20-50)
== END 2024-04-05 16:35 | disposition home or self-care (01) ==
LOC: ANHLAB 16:37
PROVIDERS: PCP Hospitalist; Visit Provider Internal Medicine Hematology & Oncology
DX: D50.0 Iron deficiency anemia secondary to blood loss (chronic) (principal)
CPT/HCPCS: 36415; 82728; 83540; 83550; 85027

== ENCOUNTER 2024-04-15 04:19 | Day surgery (SDC) | payer OTHER, SELFPAY ==
[2024-03-30 12:49] VITALS: BMI 47.5
[2024-04-15 12:16] VITALS: BP 152/83; PULSE 85; RESP 18; TEMP 36.1; O2SAT 100
[2024-04-15] MEDS: LACTATED RINGERS 1,000 ML 150 ML IV CONT (12:27)
--- NOTE | 2024-04-15 13:15 | WPDANESEPPF ---
Anes - Initial Pre Proc Eval Procedure: Operation Date: 04/15/24 13:30 Proposed Procedures p Colonoscopy - Matteo Aponte MD Date/Time: 04/15/24 13:15 Surgeon: Matteo Aponte MD Pre Op Diagnosis: Hemorrhage of anus/rectum Patient Data Age: 38 Gender: F Height: 1.57 m Weight: 114.8 kg Last Vital Signs Temp 97.0 F L 04/15/24 12:16 Pulse 85 04/15/24 12:16 Resp 18 04/15/24 12:16 BP 152/83 H 04/15/24 12:16 Pulse Ox 100 04/15/24 12:16 O2 Del Method Room Air 04/15/24 12:16 Allergies Allergy/AdvReac Type Severity Reaction Status Date / Time NSAIDS (Non-Steroidal AdvReac Mild Other Verified 04/15/24 12:15 Anti-Inflamma Home Medications Medication Instructions Recorded Confirmed Type No Home Medications 04/15/24 04/15/24 History Patient hx anesthesia problems: none Family hx anesthesia problems: none Results Review: All pre-operative results and documents have been reviewed as part of the pre-operative evaluation. [facility] Past Medical History Medical History Anemia Anxiety Arthritis MAYES (dyspnea on exertion) GERD (gastroesophageal reflux disease) Vern's thyroiditis Hypothyroidism Mastalgia Menopausal symptoms Morbid obesity PCOS (polycystic ovarian syndrome) Screening mammogram for breast cancer Surgical History Surgical History delivery delivered x5 H/O tubal ligation 2013 History of sleeve gastrectomy 2016 Family History Family History Unknown No pertinent family history Social History Social History Smoking status: Never smoker Second hand tobacco smoke exposure: No Alcohol intake: never Substance use: never Substance use type: does not use Living arrangements: with family Occupation/Education: unemployed Gender identity (if verbalized by the patient): Female Sexual Orientation (if Verbalized by the Patient): Straight or Heterosexual Spiritual care concerns: No Anes - Eval Final PreProcedure Day of Procedure 04/15/24 13:15 Patient weight: morbidly obese Heart: regular rate and rhythm Lungs: clear to auscultation Airway: Mallampati scale class III Neurological: alert and oriented Last oral intake: >/= 8 hours ASA classification: III Emergent: no Anesthetic plan: proceed Anesthesia type and monitoring: general GIVS and standard monitoring Results Review: All pre-operative results and documents have been reviewed as part of the pre-operative evaluation. Informed Consent: The patient's anesthetic plan and its attendant risks and benefits were discussed with the patient/family/POA. Questions were solicited and answers provided to the satisfaction of the patient/family/POA.
--- NOTE | 2024-04-15 13:26 | PM.HPGS ---
History of Present Illness History of Present Illness Consent: Risks, benefits, and alternatives have been discussed and questions answered. Patient agrees to proceed with procedure. Chief complaint: Hemorrhage of anus/rectum Narrative: Jazmyn San is a 38 year old female with blood in stool, had colonoscopy 2.5 years ago that showed hemorrhoid Review of Systems Review of Systems: All systems reviewed & are unremarkable except as noted in HPI and below PMFSH Past Medical History Medical History Anemia Anxiety Arthritis MAYES (dyspnea on exertion) GERD (gastroesophageal reflux disease) Vern's thyroiditis Hypothyroidism Mastalgia Menopausal symptoms Morbid obesity PCOS (polycystic ovarian syndrome) Screening mammogram for breast cancer Surgical History Surgical History delivery delivered x5 H/O tubal ligation 2013 History of sleeve gastrectomy 2016 Family History Family History Unknown No pertinent family history Social History Social History Smoking status: Never smoker Second hand tobacco smoke exposure: No Alcohol intake: never Substance use: never Substance use type: does not use Living arrangements: with family Occupation/Education: unemployed Gender identity (if verbalized by the patient): Female Sexual Orientation (if Verbalized by the Patient): Straight or Heterosexual Spiritual care concerns: No Meds Home Medications and Allergies Home Medications Medication Instructions Recorded Confirmed Type No Home Medications 04/15/24 04/15/24 History Allergies Allergy/AdvReac Type Severity Reaction Status Date / Time NSAIDS (Non-Steroidal AdvReac Mild Other Verified 04/15/24 12:15 Anti-Inflamma Vital Signs Vital Signs - 24 hr 04/15/24 12:16 Temperature 97.0 F L Pulse Rate 85 Respiratory Rate 18 Blood Pressure 152/83 H Pulse Oximetry 100 Oxygen Delivery Room Air Exam Const: General: comfortable and no acute distress HENMT: Face/Nose/Sinus: Normal nares present Eyes: General: appearance normal, both eyes and all related structures Neck: Neck: no JVD Resp: Auscultation: clear to auscultation bilaterally Cardio: Rate: regular rate Rhythm: regular rhythm GI: Inspection: non-distended GI Palp: Yes Soft to palpation Skin: General skin exam: normal color Neuro: General: gait normal Speech: normal speech Extrem: General: normal to inspection Psych: Mental Status: mental status grossly normal Assessment and Plan Assessment and plan (1) Rectal bleeding: Code(s): K62.5 - Hemorrhage of anus and rectum Status: Acute Assessment and Plan: colonoscopy
[2024-04-15 13:38] VITALS: BP 124/57; PULSE 72; RESP 20; O2SAT 99
[2024-04-15 13:48] VITALS: BP 114/70; PULSE 76; RESP 16; O2SAT 100
[2024-04-15 13:58] VITALS: BP 114/70; PULSE 68; RESP 16; O2SAT 100
== END 2024-04-15 14:09 | disposition home or self-care (01) ==
PROVIDERS: PCP Hospitalist; Referring Provider Student in an Organized Health Care Education/Training Program; Visit Provider Internal Medicine Gastroenterology
PROC: 0DJD8ZZ Inspection of Lower Intestinal Tract, Via Natural or Artificial Opening Endoscopic (ICD-10-PCS; CPT 45378; principal; 2024-04-15 13:30)
DX: K64.8 Other hemorrhoids (principal); K64.4 Residual hemorrhoidal skin tags; Z98.84 Bariatric surgery status; E66.01 Morbid (severe) obesity due to excess calories; Z68.42 Body mass index [BMI] 45.0-49.9, adult
CPT/HCPCS: 45378; J2003; J2704; J7120

== ENCOUNTER 2024-07-26 16:43 | Outpatient (CLI) | payer OTHER, SELFPAY ==
--- NOTE | ~2024-07-26 | US_ITS ---
EXAMINATION: US thyroid DATE: 07/26/2024 17:07 INDICATION: Autoimmune thyroiditis TECHNIQUE: Multiple ultrasound images of the thyroid were obtained. COMPARISON: None. FINDINGS: The right thyroid lobe measures 4.6 x 1.6 x 1.4 cm. The left thyroid lobe measures 4.9 x 1.1 x 1.2 c m. No discrete nodules identified. There is heterogeneous echogenicity with coarsened echotexture th roughout the thyroid. IMPRESSION: 1. Heterogeneous thyroid tissue with coarsened echotexture which could represent sequela of thyroidit is. No thyroid nodules identified. Reviewed, dictated and finalized at location A. [employer] IMPRESSION: 1. Heterogeneous thyroid tissue with coarsened echotexture which could represen t sequela of thyroiditis. No thyroid nodules identified.
--- OUTSIDE RECORDS SUMMARY | 2024-07-28 20:05 | XMS_ITS | Clinical Summary ---
Author Organization [facility] Address [address] [place] [address] Care Team Providers Care Station Agent Name Role Phone Addie Jennings MD Unavailable [phone] Thang Heck MD Primary Care Provider [phone] Source Comments [facility],non-owned Affiliates and Associated Physician Practices is amultiple site organization consisting of ambulatory clinics and hospital sitesin [place], [place], [place] and [place]. This disclosure is being madepursuant to the Care Everywhere program and may not contain all information available regarding this patient. Last updated 18.[facility] Allergies Active Allergy Reactions Criticality Noted Date Comments Nsaids Other Low Reaction: Medications * Be aware that medications may not be up to date on this document. Alwaysverify current medications with the patient. 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 Iron deficiency anemia ever agudelo to inadequate dietary iron intake 02/04/2018 Low vitamin D level 02/04/2018 Fatigue 01/31/2018 Vitamin D deficiency 01/31/2018 Iron deficiency 01/31/2018 History of borderline diabetes mellitus 02/01/20 18 B12 deficiency 01/31/2018 Status post gastric bypass for obesity 8 Eczema 10/22/2017 Low grade squamous intraepit helial lesion (LGSIL) on cervicovaginal cytologic smear 08/15/2016 History of bariatric surgery 03/03/2016 Overview (06/25/2018): Last Assessment & Plan: Routine post-bariatric surgery labs to assess for nutritional deficiencies due to malabsorption. Positive test for human papillomavirus (HPV) Hypertriglyceridemia 09/26/2015 Eating disorder 07/30/2015 Class 2 obesity due to exces s calories without serious comorbidity with body mass index (BMI) of 36.0 to 36.9 in adult 07/19/2015 Overview (06/25/2018): Last Assessment & Plan: Obesity is unchanged. General weight loss/lifestyle modification strategies discussed (elicit support from others; identify saboteurs; non-food rewards, etc). Regular aerobic exercise program discussed. Discussed possible use of metformin and/or GLP-1 RA pending labs. Placenta Previa, with vaginal bleeding 0 History of Section x 3 with at least 1 Classical 03/30/2010 Overview (03/30/2010): Classical sections in 1st and 3rd sections, 2nd LTCS (1st op note not docmented, 2nd and 3rd documented) Hyperthyroidism 03/30/2010 Overview (03/30/2010): Several years s/p iodine therapy with poor obstetric history 03/30/2010 Overview (03/30/2010): H/o 28 week IUFD in G2 Adhesion, significant pelvic adhesive ds 09/25/2 010 Overview (03/30/2010): Significant adhesions on last operative note Encounters Date Type Department Care Team Description 07/04/2024 Travel from Last 3 Months Immunizations Name Administration Dates Next Due TDAP (7yrs+) 07/06/2017 Family History Medical History Relation Name Comments Cancer - Breast Neg Hx Cancer - Ovarian Neg Hx Relation Name Status Comments Brother Alive Father ? Alive Maternal Grandfather Maternal Grandmother Mother Paternal Grandfather Paternal Grandmother Sister Alive Social History Tobacco Use Types Packs/Day Years Used Date Smoking Tobacco: Never Smokeless Tobacco: Never Tobacco Cessation:Counseling Given: Not Answered Alcohol Use Standard Drinks/Week Comments No 0 (1 standard drink = 0.6 oz pur e alcohol) Sex and Gender Information Value Date Recorded Sex Assigned at Not on file Gender Identity Not on file Sexual Orientation Not on file Last Filed Vital Signs Vital Sign Reading Time Taken Comments Blood Pressure 136/73 07/03/2022 3:58 PM [employer] Pulse 85 07/03/2022 3:58 PM [employer] Temperature 37.1 ??C (98.7 ??F) 07/03/2022 3:58 PM CS T Respiratory Rate 16 07/03/2022 3:58 PM [employer] Oxygen Saturation 100% 07/03/2022 3:58 PM [employer] Inhaled Oxygen Concentration - - Weight 117.9 kg (260 lb) 07/03/2022 3:58 PM [employer] Height 162.6 cm (5' 4 ) 07/03/2022 3:58 PM [employer] Body Mass Index 44.63 07/03/2022 3:58 PM [employer] Plan of Treatment Health Maintenance Due Date Last Done Comments PAP SMEAR 1983 HIV SCREENING 1998 HEPATITIS C SCREENING 05/04/2001 HEPATITIS B VACCINE (1 of 3 - 19+ 3-dose series) 2002 LIPID TESTING 12/29/2023 12/28/2018 COVID-19 VACCINE ( - 2023-2 5 season) 2024 INFLUENZA VACCINE (#1) 2024 , 04/17/2021 MAMMOGRAM 06/04/2024 06/04/2022, 05/07/2018 DEPRESSION SCREENING 07/06/2024 DTAP/TDAP/TD VACCINES (2 - T d or Tdap) 12/04/2028 07/06/2017 Postponed from 07/06 (Scheduled) ZOSTER VACCINE (1 of 2) 2033 HIB VACCINE Aged Out No longer eligi ble based on patient's age to complete this topic HPV VACCINE Aged Out No longer eligi ble based on patient's age to complete this topic MENINGOCOCCAL (Group B) VACCINE Aged Out No longer eligible b ased on patient's age to complete this topic MENINGOCOCCAL VACCINE Aged Out No nigel bijan eligible based on patient's age to complete this topic PNEUMOCOCCAL VACCINE Aged Out No long er eligible based on patient's age to complete this topic Procedures Procedure Name Priority Date/Time Associated Diagnosis Comments LIPID PROFILE Routine 12/28/2018 7:38 AM CDT Class 3 severe obesity due to excess calories without serious comorbidity with body mass index (BMI) of 40.0 to 44.9 in adult (HCC) MAMMO BILAT DIAGNOSTIC Routine 05/07/2018 9:24 AM CDT Lump or mass in breast from Last 3 Months or Most Recently Relevant to Health Maintenance Results * (ABNORMAL) LIPID PROFILE (12/28/2018 7:38 AM CDT) Cholesterol 220(H) <200 mg/dL [facility] ACCOUNT BILL Triglycerides 101 <150 mg/dL [facility] ACCOUNT BILL HDL Cholesterol 63 >40 mg/dL [facility] ACCOUNT BILL VLDL Calculated 20(L) >=30 mg/dL [facility] ACCOUNT BILL LDL Calculated 137(H) <130 mg/dL [facility] ACCOUNT BILL Comment:FASTING Blood BLOOD SPECIMEN / Unknown 12/28/2018 7:38 AM CDT 12/28/2018 Narrative Resulting Agency Comment Lab Testing performed at: [address] ??[facility] [id number] Lottie Verduzco PHARMACEUTICAL DEVELOPMENT TECHNICIAN-SENIOR TECHNICAL SPECIALIST LAB - CHEMI STRY ORDERABLES [facility] ACCOUNT BILL [address] [place] [address] * ALIZE DIAG DIRECT DIG IMAGE BILATERAL [id number] (05/07/2018 9:24 AM CDT) Anatomical Region Laterality Modality Breast Bilateral Mammography 05/07/2018 9:36 AM CDT Addenda Addendum by Mellisa Drake MD on 06/04/2018 11:19 AM [employer] Previous mammograms from [facility] on 04/10/2016 and 03/27/2016 are now available for review. There has been no interval change in the appearance of either breast compared with the prior studies. The impression, assessment, and recommendation remain unchanged: IMPRESSION: 1. ??No evidence of malignancy in either breast. 2. ??No mammographic or sonographic correlate for area of clinical concern in right axilla. ??No right axillary adenopathy. ??In the absence of imaging findings, any decision for further intervention should be based on the clinical assessment. ASSESSMENT: BIRADS Category 1: Negative mammogram. RECOMMENDATION: Screening mammography beginning at age 40. Addending Radiologist: Mellisa Drake MD on 06/04/2018 at 11:06 AM Impressions 05/07/2018 10:53 AM CDT 1. ??No evidence of malignancy in either breast. 2. ??No mammographic or sonographic correlate for area of clinical concern in right axilla. ??No right axillary adenopathy. ??In the absence of imaging findings, any decision for further intervention should be based on the clinical assessment. ASSESSMENT: BIRADS Category 1: Negative mammogram. RECOMMENDATION: Screening mammography beginning at age 40. Findings and recommendation were discussed with the patient by Dr. Drake. Thank you for allowing us to participate in the care of your patient. [facility] utilizes [employer] as a reminder system to notify patients of their next recommended mammogram. Reading Radiologist: Mellisa Drake MD on 05/07/2018 at 10:53 AM Narrative 05/07/2018 10:53 AM CDT EXAMINATION: Digital bilateral diagnostic mammogram and targeted right breast ultrasound on 05/07/2018. Low-dose digital breast tomosynthesis examination was performed with 3D acquisitions and synthetic 2D mammogram. Computer assisted detection was utilized. PRIOR: Previous mammogram was performed at [facility]. This was not available for review at time of dictation. HISTORY: 32-year-old female with area of palpable concern in the right axillary region. BREAST PARENCHYMAL DENSITY: The breasts are almost entirely fatty. FINDINGS: No suspicious masses, areas of architectural distortion or microcalcifications are evident in either breast on 2D mammogram or tomosynthesis images. ??No mammographic abnormality is identified in the area of clinical concern in the right axillary region. Normal-appearing axillary node is seen deep to the skin marker. Targeted ultrasound was performed in the area of clinical concern in the right axilla. ??No sonographic abnormality is seen. ??There is no right axillary adenopathy. Procedure Note Mellisa Drake MD - 05/07/2018 EXAMINATION: Digital bilateral diagnostic mammogram and targeted right breast ultrasound on 05/07/2018. Low-dose digital breast tomosynthesis examination was performed with 3D acquisitions and synthetic 2D mammogram. Computer assisted detection was utilized. PRIOR: Previous mammogram was performed at [facility]. This was not available for review at time of dictation. HISTORY: 32-year-old female with area of palpable concern in the right axillary region. BREAST PARENCHYMAL DENSITY: The breasts are almost entirely fatty. FINDINGS: No suspicious masses, areas of architectural distortion or microcalcifications are evident in either breast on 2D mammogram or tomosynthesis images. No mammographic abnormality is identified in the area of clinical concern in the right axillary region. Normal-appearing axillary node is seen deep to the skin marker. Targeted ultrasound was performed in the area of clinical concern in the right axilla. No sonographic abnormality is seen. There is no right axillary adenopathy. IMPRESSION 1. No evidence of malignancy in either breast. 2. No mammographic or sonographic correlate for area of clinical concern in right axilla. No right axillary adenopathy. In the absence of imaging findings, any decision for further intervention should be based on the clinical assessment. ASSESSMENT: BIRADS Category 1: Negative mammogram. RECOMMENDATION: Screening mammography beginning at age 40. Findings and recommendation were discussed with the patient by Dr. Drake. Thank you for allowing us to participate in the care of your patient. [facility] utilizes [employer] as a reminder system to notify patients of their next recommended mammogram. Reading Radiologist: Mellisa Drake MD on 05/07/2018 at 10:53 AM Mellisa Drake MD MAMMO ORDERABLES from Last 3 Months or Most Recently Relevant to Health Maintenance Advance Directives * Full Code (Latest Code Status on File) Date Activated Date Inactivated Comments 03/30/2010 2:48 PM 04/09/2010 5:05 AM Care Teams Station Agent Relationship Specialty Start Date End Date Thang Heck MD [address] [place] [address] PCP - General 06/10/22 Addie Jennings MD [address] [place] [id number] Endocrinology 01/31/20
--- OUTSIDE RECORDS SUMMARY | 2024-07-28 20:05 | XMS_ITS | Data Portability ---
Author Organization [facility] [place] Address [address] [place] [address] [place] [address] Assessment Encounter Date Assessment Date Assessment LastModified by Organization Details LastModified Time 09/10/2021 09/10/2021 discussed normal US results reviewed and discussed CT and renal US results encouraged to follow up with urology since several urinary sx and since already has a urologist. precautions given. [email or web address] Not available 09/23/2021 09:28:07 Plan of Treatment Reminders Order Date Submit Date Provider Last Modified By Organization Details Last Modified Time Details Appointments None recorded. Lab urinalysis, dipstick 2021 022 [email or web address] [facility] [facility], [address], [place], [address], 17:05:21 Referral None recorded. Procedures None recorded. Surgeries None recorded. Imaging MAMMO, diagnostic, digital, bilateral [address], [address] [place] [address], [phone], 16:08:45 US, breast, unilateral [address], [address] [place] [address], [id number], 16:08:45 US, pelvis 2021 022 [email or web address] [facility], [address], [place], [address], 2 12:20:09 US, transvagina l 2021 022 [facility], [address], [address], [place], [address], 2 12:28:53 US, breast, bilateral, w/ axilla 2021 022 [facility], [facility] [address], [place], [address], 3 09:11:00 Medication Orders None recorded. Patient TargetsNo targets recorded. Patient InstructionsNo instructions recorded. Reason for Referral None Reported. Results Created Date Observation Date Name Description Value Unit Range Abnormal Flag Note LastModifiedBy Organization Detail LastModifiedTime 08/23/19 22 08/23/2021 CT/GC AND TRICH OMONA S VAGIN JOSSELYN (RRNA ), SWAB chlamydia trachomatis, PCR Negati ve negati ve Not Available [facility] (Lab) [address], [place], [address], 09/02/2021 16:08:28 08/23/19 22 08/23/2021 CT/GC AND TRICH OMONA S VAGIN JOSSELYN (RRNA ), SWAB neisseria gonorrhoeae, PCR Negati ve negati ve Not Available [facility] (Lab) [address], [place], [address], 09/02/2021 16:08:28 08/23/19 22 08/23/2021 CT/GC AND TRICH OMONA S VAGIN JOSSELYN (RRNA ), SWAB trichomonas vaginalis ribosomal RNA (rrna) Negati ve negati ve Not Available [facility] (Lab) [address], [place], [address], 09/02/2021 16:08:28 08/23/19 22 08/23/2021 MOBIL UNCUS MULIE RIS/C URTIS MICHELLE, RT-PC R, ONE SWAB nm bkr mobiluncus mulieris and mobiluncus curtisii by RT-PCR Negati ve Swab- 1 Vag Cerv Not Available [facility] (Lab) [address] [place], [address], 09/02/2021 16:08:28 08/23/19 22 08/23/2021 CAIN DA VAGIN ITIS PANEL RT-PC R, ONESW AB solomon albicans PCR Negati ve Swab- 1 Vag Cerv Not Available [facility] (Lab) [address] [facility], [place], [address], 09/02/2021 16:08:29 08/23/19 22 08/23/2021 CAIN DA VAGIN ITIS PANEL RT-PC R, ONESW AB solomon tropicalis PCR Negati ve Swab- 1 Vag Cerv Not Available [facility] (Lab) [address] [facility], [place], [address], 09/02/2021 16:08:29 08/23/19 22 08/23/2021 CAIN DA VAGIN ITIS PANEL RT-PC R, ONESW AB solomon parapsilosis PCR Negati ve Swab- 1 Vag Cerv Not Available [facility] (Lab) [address] [place], [address], 09/02/2021 16:08:29 08/23/19 22 08/23/2021 CAIN DA VAGIN ITIS PANEL RT-PC R, ONESW AB solomon glabrata PCR Negati ve Swab- 1 Vag Cerv Not Available [facility] (Lab) [address] [place], [address], 09/02/2021 16:08:29 08/23/19 22 08/23/2021 CAIN DA SYLVIE I BY RT-PC R solomon krusei by RT-PCR Negati ve Swab- 1 Vag Cerv Not Available [facility] (Lab) [address] [place], [address], 09/02/2021 16:08:29 08/23/19 22 08/23/2021 UROGE NITAL MYCOP LASMA /UREA PLASM A PANEL RT-PC R, ONESW AB nm bkr mycoplasma genitalium by RT-PCR Negati ve Swab- 1 Vag Cerv Not Available [facility] (Lab) [address] [facility], [place], [address], 09/02/2021 16:08:30 08/23/19 22 08/23/2021 UROGE NITAL MYCOP LASMA /UREA PLASM A PANEL RT-PC R, ONESW AB nm bkr mycoplasma hominis by RT-PCR Negati ve Swab- 1 Vag Cerv Not Available [facility] (Lab) [address] [place], [address], 09/02/2021 16:08:30 08/23/19 22 08/23/2021 UROGE NITAL MYCOP LASMA /UREA PLASM A PANEL RT-PC R, ONESW AB nm bkr ureaplasma urealyticum by RT-PCR Negati ve Swab- 1 Vag Cerv Not Available [facility] (Lab) [address] [facility], [place], [address], 09/02/2021 16:08:30 08/23/19 22 08/23/2021 BACTE RIAL VAGIN OSIS PANEL RT-PC R, ONESW AB gardnerella vaginalis PCR Negati ve Swab- 1 Vag Cerv Not Available [facility] (Lab) [address] [place], [address], 09/02/2021 16:08:30 08/23/19 22 08/23/2021 BACTE RIAL VAGIN OSIS PANEL RT-PC R, ONESW AB atopobium vaginae PCR Negati ve Swab- 1 Vag Cerv Not Available [facility] (Lab) [address] [place], [address], 09/02/2021 16:08:30 08/23/19 22 08/23/2021 BACTE RIAL VAGIN OSIS PANEL RT-PC R, ONESW AB bacterial vaginosis associated bacteria 2 (bvab2) Negati ve Swab- 1 Vag Cerv Not Available [facility] (Lab) [address] [place], [address], 09/02/2021 16:08:30 08/23/19 22 08/23/2021 BACTE RIAL VAGIN OSIS PANEL RT-PC R, ONESW AB megasphaera species (type 1 and type 2) PCR Negati ve (Type1 ,Type2 ) Swab- 1 Vag Cerv Type1 :Nega tive Type2 :Nega tive. Not Available [facility] (Lab) [address] [place], [address], 09/02/2021 16:08:30 08/23/19 22 08/23/2021 BACTE RIAL VAGIN OSIS PANEL RT-PC R, ONESW AB lactobacillu s (bvpanel) PCR See Commen t Swab- 1 Vag Cerv L.cri spatu s: Negat ellen L.carolyn senii : Negat ellen L.gas seri : Negat ellen L.ine rs : Posit ellen. Not Available [facility] (Lab) [address] [place], [address], 09/02/2021 16:08:30 09/05/19 22 09/04/2021 URINA LYSIS , WITH MICRO SCOPI C, REFLE X CULTU RE color, urine Yellow colorl ess, light yellow , yellow , dark yellow , straw Not Available [facility] (Lab) [address] [place], [address], 09/05/2021 01:44:58 09/05/19 22 09/04/2021 URINA LYSIS , WITH MICRO SCOPI C, REFLE X CULTU RE clarity, urine Cloudy Not Available [facility] (Lab) [address] [place], [address], 09/05/2021 01:44:58 09/05/19 22 09/04/2021 URINA LYSIS , WITH MICRO SCOPI C, REFLE X CULTU RE glucose, urine Negati ve mg/dL negati ve Not Available [facility] (Lab) [address] [place], [address], 09/05/2021 01:44:58 09/05/19 22 09/04/2021 URINA LYSIS , WITH MICRO SCOPI C, REFLE X CULTU RE bilirubin, urine Negati ve mg/dL negati ve Not Available [facility] (Lab) [address] [facility], [place], [address], 09/05/2021 01:44:58 09/05/19 22 09/04/2021 URINA LYSIS , WITH MICRO SCOPI C, REFLE X CULTU RE ketones, urine Negati ve mg/dL negati ve Not Available [facility] (Lab) [address] [facility], [place], [address], 09/05/2021 01:44:58 09/05/19 22 09/04/2021 URINA LYSIS , WITH MICRO SCOPI C, REFLE X CULTU RE pH, urine 6.0 . 5.0-9. 0 Not Available [facility] (Lab) [address] [facility], [place], [address], 09/05/2021 01:44:58 09/05/19 22 09/04/2021 URINA LYSIS , WITH MICRO SCOPI C, REFLE X CULTU RE specific gravity, urine 1.023 . 1.001- 1.035 Not Available [facility] (Lab) [address] [place], [address], 09/05/2021 01:44:58 09/05/19 22 09/04/2021 URINA LYSIS , WITH MICRO SCOPI C, REFLE X CULTU RE blood, urine Negati ve negati ve Not Available [facility] (Lab) [address] [place], [address], 09/05/2021 01:44:58 09/05/19 22 09/04/2021 URINA LYSIS , WITH MICRO SCOPI C, REFLE X CULTU RE protein, UA Negati ve mg/dL negati ve Not Available [facility] (Lab) [address] [place], [address], 09/05/2021 01:44:58 09/05/19 22 09/04/2021 URINA LYSIS , WITH MICRO SCOPI C, REFLE X CULTU RE urobilinogen , urine <2.0 mg/dL <2.0 Not Available [facility] (Lab) [address] [facility], [place], [address], 09/05/2021 01:44:58 09/05/19 22 09/04/2021 URINA LYSIS , WITH MICRO SCOPI C, REFLE X CULTU RE nitrite, urine Negati ve negati ve Not Available [facility] (Lab) [address] [facility], [place], [address], 09/05/2021 01:44:58 09/05/19 22 09/04/2021 URINA LYSIS , WITH MICRO SCOPI C, REFLE X CULTU RE leukocyte esterase, urine Negati ve florencia/u L negati ve Not Available [facility] (Lab) [address] [facility], [place], [address], 09/05/2021 01:44:58 09/05/19 22 09/04/2021 URINA LYSIS , WITH MICRO SCOPI C, REFLE X CULTU RE WBC, urine 0-5 /hpf none, 0-5 Not Available [facility] (Lab) [address] [place], [address], 09/05/2021 01:44:58 09/05/19 22 09/04/2021 URINA LYSIS , WITH MICRO SCOPI C, REFLE X CULTU RE RBC, urine 0-2 /hpf none, 0-2 Not Available [facility] (Lab) [address] [place], [address], 09/05/2021 01:44:58 09/05/19 22 09/04/2021 URINA LYSIS , WITH MICRO SCOPI C, REFLE X CULTU RE bacteria, urine Trace /hpf none abnormal Not Available [facility] (Lab) [address] [place], [address], 09/05/2021 01:44:58 09/05/19 22 09/04/2021 URINA LYSIS , WITH MICRO SCOPI C, REFLE X CULTU RE squamous epithelial cells, urine Many /hpf none abnormal Not Available [facility] (Lab) [address] [facility], [place], [address], 09/05/2021 01:44:58 09/05/19 22 09/04/2021 URINA LYSIS , WITH MICRO SCOPI C, REFLE X CULTU RE mucus, urine Modera te /hpf none, trace, few abnormal Not Available [facility] (Lab) [address] [facility], [place], [address], 09/05/2021 01:44:58 09/05/19 22 09/04/2021 URINA LYSIS , WITH MICRO SCOPI C, REFLE X CULTU RE amorphous crystal, urine Many /hpf none abnormal Not Available [facility] (Lab) [address] [facility], [place], [address], 09/05/2021 01:44:58 09/05/19 22 09/04/2021 URINA LYSIS , WITH MICRO SCOPI C, REFLE X CULTU RE calcium oxalate crystal, urine Many /hpf none abnormal Urine Cultu re not perfo rmed per refle x ancelmo col. Not Available [facility] (Lab) [address] [facility], [place], [address], 09/05/2021 01:44:58 09/11/19 22 09/10/2021 urina lysis , dipst ick Leukocytes neg Not Available Mukesh khan [address], [place], [address], 09/10/2021 17:05:08 09/11/19 22 09/10/2021 urina lysis , dipst ick Nitrite neg Not Available [address], [place], [address], 09/10/2021 17:05:08 09/11/19 22 09/10/2021 urina lysis , dipst ick Blood trace Not Available [facility] [address], [place], [address], 09/10/2021 17:05:08 09/05/19 22 09/04/2021 US, pelvi s No observ ation record ed. [email or web address] [facility] [address], [place], [address], 09/04/2021 12:28:43 09/05/19 22 09/04/2021 US, trans vagin al No observ ation record ed. [email or web address] [facility] [address], [place], [address], 09/04/2021 12:28:53 09/05/19 22 09/04/2021 US, pelvi s No observ ation record ed. FRANK Briseyda [address], [place], [address], 10/01/2021 23:40:33 09/10/19 22 09/08/2021 CT, abdom en + pelvi s, w/ contr ast No observ ation record ed. [email or web address] [facility] (Radiology) [address] [facility] , [place], [address], 09/09/2021 20:20:14 09/11/19 22 09/10/2021 US, kidne y No observ ation record ed. [facility] [address], [place], [address], 09/10/2021 16:38:58 07/11/19 23 07/11/2022 US, kay selby, w/ axill a No observ ation record ed. [facility] [place] [address], [place], [address], 07/11/2022 15:18:08 Result Notes None recorded. Problems Name Problem SNOMED Code Status Onset Date Resolution Date Notes Provider Name and Address Organization Details Recorded Time Pregnanc y test negative 375169423 Completed 201411/08/2020 Encounte r for pregnanc y test, result negative ;Practic e ID: 0001 Rosa nichole [facility] 16:24:30 Human papillom avirus deoxyrib onucleic acid detected , high risk on cervical specimen [id number] Completed 201511/08/2020 Cervical high risk HPV DNA test positive ;Practic e ID: 0001 Rosa Houston [facility] 16:24:24 Low grade squamous intraepi thelial lesion on cervical Papanico laou smear [id number] 105 Completed 201503/27/2021 Low grade intrepit h lesion cyto smr crvx (LGSIL); Practice ID: 0001 Ro Chris [facility] 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 16:24:33 Clinical finding Completed 201811/08/2020 Other specifie d disorder s of breast;P ractice ID: 0001 Rosa nichole [facility] 16:24:13 Screenin g for malignan t neoplasm of cervix Completed 201411/15/2020 Encounte r for screenin g for malignan t neoplasm of cervix;R ecorded Elsewher e: No Locat ion: [facility] S ource: EHR Investment Banking Analyst angel luis: N Practi ce ID: [id number] Tiago lable Time: 05:00:00 PM Ro nichole [facility] 16:55:10 Disorder of breast [id number] Completed 201811/08/2020 Disorder of breast, unspecif ied;Maxwell rded Elsewher e: No [facility] ource: EHR Investment Banking Analyst angel luis: N Practi ce ID: [id number] Tiago lable Time: 09:45:00 AM Rosa [facility] 16:24:16 Finding of body mass index [id number] Completed 201411/08/2020 Body mass index (BMI) 40.0-44. 9, adult;Re corded Elsewher e: No Locat ion: [facility] S ource: EHR Investment Banking Analyst angel luis: N Practi ce ID: [id number] Tiago lable Time: 05:00:00 PM Rosa Houston [facility] 16:24:18 Syphilis test finding [id number] Completed 201411/08/2020 Encntr screen for infectio ns w sexl mode of transmis s;Record ed Elsewher e: No Locat ion: [facility] S ource: EHR Investment Banking Analyst angel luis: N Practi ce ID: [id number] Tiago lable Time: 05:00:00 PM Rosa [place] [facility] 16:24:36 Infectio n screenin g Completed 201411/08/2020 Encounte r for screenin g for oth infec/pa rastc diseases ;Recorde d Elsewher e: No Locat ion: [facility] S ource: EHR Investment Banking Analyst angel luis: N Practi ce ID: [id number] Tiago lable Time: 05:00:00 PM Rosa [facility] 16:24:26 Genuine stress incontin ence [id number] Completed 201411/08/2020 Stress incontin ence (female) (male);R ecorded Elsewher e: No Locat ion: [facility] S ource: EHR Investment Banking Analyst angel luis: N Practi ce ID: [id number] Tiago lable Time: 05:00:00 PM Rosa [facility], [facility] 16:24:21 Problem Notes None recorded. Procedures Surgical History Date Name Laterality Status Provider Name and Address Organization Details Recorded Time 1 Date of Last Pap Smear completed [facility] 11/20/2020 10:22:52 6 Tubal Ligation completed [facility] 11/20/2020 12:05:25 6 section completed [facility] 11/20/2020 12:05:51 5 Colposcopy completed [facility] 11/15/2020 16:57:09 2 section completed [facility] 11/20/2020 12:05:46 0 section completed [facility] 11/20/2020 12:05:33 8 section completed [facility] 11/20/2020 12:05:10 9 section completed [facility] 11/20/2020 12:05:01 Tubal Ligation completed [facility] 03/27/2021 11:35:40 Imaging Results Imaging Date Name Status LastModified by Organization Details LastModified Time 09/04/2021 US, pelvis completed elisabeth Sauer [address], [place], [address], 09/04/2021 12:28:43 09/04/2021 US, transvaginal completed elisabeth aldana [address], [place], [address], 09/04/2021 12:28:53 09/04/2021 US, pelvis completed [facility] [address], [place], [address], 10/01/2021 23:40:33 09/08/2021 CT, abdomen + pelvis, w/ contrast completed [email or web address] [place] [address] (Radiology) [address] [facility] , [place], [address], 09/09/2021 20:20:14 09/10/2021 US, kidney completed [facility] [address], [place], [address], 09/10/2021 16:38:58 07/11/2022 US, breast, bilateral, w/ axilla completed [facility] [place] [address], [place], [address], 07/11/2022 15:18:08 Procedure Notes None recorded. Medical Equipment None Reported. Allergies Allergen ID Allergen Name Allergen Category Reaction Reaction Severity Criticality Documentation Date Start Date Code Code System Note Provider Name and Address Organization Details Recorded Time 00906 Non-stero idal anti-infl ammatory agent (product) medicatio n Not available Not available Not available 06/22/2020 78651 005 SNOMED Comme nt: [facility]at [facility]; Not Available [facility] 0 14:24:36 Medications Name Sig Start Date Stop Date Status Note LastModified by Organization Details LastModified Time b-12 1000mcg sublingua l tablets PLACE ONE TABLET UNDER THE TONGUE EVERY MORNING 03/27 completed Not Available Not Available Not Available cyclobenz aprine 10 mg tablet TAKE 1 TABLET BY MOUTH TWICE DAILY NEEDED FOR MUSCLE SPASM active Not Available Not Available No t Available methocarb simon 500 mg tablet TAKE 1 TABLET BY MOUTH EVERY 6 HOURS NEEDED FOR MUSCLE SPASM active Not Available Not Available No t Available venlafaxi ne ER 37.5 mg capsule,e xtended release 24 hr TAKE 1 CAPSULE BY MOUTH EVERY DAY IN THE MORNING active Not Available Not Available No t Available triamcino lone acetonide 0.5 % topical cream apply by topical route 2 times every day a thin layer to the affected area(s) 11/08 completed Prescrib siomara Quigley e: No Locat ion: [facility] Almita moran By: sgrotefe ndt Enco lesvia DateTime : 02/02/20 09:45:00 AM Not Available Not Available Not Available fluconazo le 150 mg tablet TAKE 1 TABLET BY MOUTH EVERY DAY FOR 1 DAY 07/03 completed Not Available Not Available Not Available sumatript an 100 mg tablet TAKE 1 TABLET BY MOUTH EVERY 2 HOURS NEEDED SOON FEEL HEADACHE IS COMING. NO MORE THAN 2 TABLETS IN 24 HOURS active Not Available Not Available No t Available hydrocodo ne 5 mg-acetam inophen 325 mg tablet TAKE 1 TABLET BY MOUTH EVERY 4 HOURS NEEDED FOR PAIN active Not Available Not Available No t Available phenazopy ridine 200 mg tablet TAKE 1 TABLET BY MOUTH THREE TIMES DAILY 03/27 completed Not Available Not Available Not Available rizatript an 10 mg tablet 09/03 completed Not Available Not Available Not Available sertralin e 100 mg tablet TAKE 1 TABLET BY MOUTH EVERY DAY 03/27 completed Not Available Not Available Not Available topiramat e 25 mg tablet 03/27 completed Not Available Not Available Not Available metronida zole 500 mg tablet 07/03 completed Not Available Not Available Not Available phentermi ne 37.5 mg tablet TAKE 1 TABLET BY MOUTH EVERY DAY 03/27 completed Not Available Not Available Not Available sulfameth oxazole 800 mg-trimet hoprim 160 mg tablet TAKE 1 TABLET BY MOUTH EVERY 12 HOURS FOR 7 DAYS 07/03 completed Not Available Not Available Not Available omeprazol e 40 mg capsule,d elayed release active Not Available Not Available Not Available levothyro xine 25 mcg tablet TAKE 1 TABLET BY MOUTH EVERY DAY IN THE MORNING 09/03 completed Not Available Not Available Not Available hydrocort isone 2.5 % topical cream with perineal applicato r APPLY TO THE AFFECTED AREA FOUR TIMES DAILY NEEDED 03/27 completed Not Available Not Available Not Available alprazola m 0.25 mg tablet TAKE 1 TABLET BY MOUTH EVERY DAY NEEDED active Not Available Not Available No t Available prednisol one acetate 1 % eye drops,cody pension SHAKE LIQUID AND INSTILL 1 DROP IN BOTH EYES TWICE DAILY 03/27 completed Not Available Not Available Not Available lorazepam 0.5 mg tablet TAKE 1 TABLET BY MOUTH EVERY DAY active Not Available Not Available No t Available methocarb simon 750 mg tablet TAKE 1 TABLET BY MOUTH THREE TIMES DAILY NEEDED 03/27 completed Not Available Not Available Not Available diazepam 2 mg tablet active Not Available Not Available Not Available phenazopy ridine 100 mg tablet active Not Available Not Available Not Available cephalexi n 500 mg capsule 07/03 completed Not Available Not Available Not Available pantopraz ole 40 mg tablet,de layed release active Not Available Not Available Not Available cyanocoba roland (vit B-12) 1,000 mcg/mL injection solution 09/03 completed Not Available Not Available Not Available oseltamiv ir 75 mg capsule active Not Available Not Available Not Available sertralin e 25 mg tablet TK 1 T PO QD 03/27 completed Not Available Not Available Not Available diclofena c sodium 75 mg tablet,de layed release TAKE 1 TABLET BY MOUTH TWICE DAILY NEEDED 09/03 completed Not Available Not Available Not Available hydroxyzi ne HCl 25 mg tablet TAKE 1 TABLET BY MOUTH EVERY 6 HOURS NEEDED FOR ANXIETY 09/03 completed Not Available Not Available Not Available budesonid e DR - ER 3 mg capsule,d elayed,ex tended release active Not Available Not Available Not Available ibuprofen 600 mg tablet TAKE 1 TABLET BY MOUTH EVERY 8 HOURS WITH FOOD NEEDED 09/03 completed Not Available Not Available Not Available methylpre dnisolone 4 mg tablets in a dose pack FOLLOW PACKAGE DIRECTIO NS 03/27 completed Not Available Not Available Not Available ondansetr on 4 mg disintegr ating tablet DISSOLVE 1 TABLET ON THE TONGUE EVERY 4 HOURS NEEEDED FOR NAUSEA OR VOMITING active Not Available Not Available No t Available fluticaso ne propionat e 50 mcg/actua tion nasal spray,cody pension SHAKE LIQUID AND USE 2 SPRAYS IN EACH NOSTRIL EVERY DAY 03/27 completed Not Available Not Available Not Available metformin ER 500 mg tablet,ex tended release 24 hr TAKE 1 TABLET BY MOUTH TWICE DAILY WITH MEALS 09/03 completed Not Available Not Available Not Available sertralin e 50 mg tablet TAKE 1 AND 1/2 TABLETS BY MOUTH DAILY active Not Available Not Available No t Available spironola ctone 50 mg tablet TAKE 1 TABLET BY MOUTH TWICE DAILY BEFORE MEALS 09/03 completed Not Available Not Available Not Available diazepam 5 mg tablet active Not Available Not Available Not Available Lexapro 10 mg tablet take 1 tablet by oral route every day 11/13 completed Prescrib ed Elsewher e: Yes Loca tion: [facility] M odify By: dmrose E ncounter DateTime : 02/02/20 09:45:00 AM Not Available Not Available Not Available bupropion HCl XL 150 mg 24 hr tablet, extended release 09/03 completed Not Available Not Available Not Available topiramat e 50 mg tablet 09/03 completed Not Available Not Available Not Available nitrofura ntoin monohydra te/macroc rystals 100 mg capsule TAKE 1 CAPSULE BY MOUTH EVERY 12 HOURS FOR 5 DAYS. MUST ADMINIST ER WITH A MEAL/ FOOD 03/27 completed Not Available Not Available Not Available BD Insulin Syringe Ultra-Fin e 1 mL 30 gauge x 1/2 USE TO INJECT 1 TO 4 TIMES DAILY DIRECTED 09/03 completed Not Available Not Available Not Available FeroSul 325 mg (65 mg iron) tablet TAKE 1 TABLET BY MOUTH TWICE DAILY 03/27 completed Not Available Not Available Not Available naloxone 4 mg/actuat ion nasal spray CALL 911. SPR CONTENTS OF ONE SPRAYER (0.1ML) INTO NOSTRIL NEEDED FOR OPIOID REVERSAL . REPEAT EVERY 3 MINUTES NEEDED IF NO /MINIMAL RESPONSE active Not Available Not Available No t Available Aurovela 1.5/30 (21) 1.5 mg-30 mcg tablet TAKE 1 TABLET BY MOUTH DAILY 07/03 completed Not Available Not Available Not Available ID NOW COVID-19 Test Kit TEST DIRECTED TODAY 07/03 completed Not Available Not Available Not Available Vitals Date Recorded Body height Body mass index (BMI) Body weight Provider Name and Address Organization Details Last Updated DateTime 03/27/2021 158.75 cm 46.1 kg/m2 046027.65 g Ro Chris [place] - [facility] 03/27/2021 11:35:16 Date Recorded Systolic blood pressure Diastolic blood pressure Provider Name and Address Organization Details Last Updated DateTime 03/27/2021 126 mm[Hg] 82 mm[Hg] Cherelle Monge, [facility] [address], [place], [address], [facility] 03/27/2021 13:35:08 Date Recorded Body height Provider Name an d Address Organization Details Last Updated DateTime 08/23/2021 158.75 cm Ro Chris [facility] 08/23/2021 16:36:10 Date Recorded Body mass index (BMI) Body weight Systolic blood pressure Diastolic blood pressure Provider Name and Address Organization Details Last Updated DateTime 08/23/2021 47.7 kg/m2 785522.26 g 120 mm[Hg] 76 mm[Hg] Cherelle Monge, [facility] [address], [place], [address], [facility] 08/23/2021 17:17:24 Date Recorded Body height Body mass index (BMI) Body weight Systolic blood pressure Diastolic blood pressure Provider Name and Address Organization Details Last Updated DateTime 09/10/2021 158.75 cm 47 kg/m2 291931.6 1 g 140 mm[Hg] 81 mm[Hg] Lizz Moore [facility] 16:57:12 Date Recorded Body height Systolic blood pressure Diastolic blood pressure Provider Name and Address Organization Details Last Updated DateTime 07/03/2022 158.75 cm 130 mm[Hg] 80 mm[Hg] Gina Wood [facility] 07/03/2022 13:01:35 Social History Question Answer Notes LastModified by Organizat ion Details LastModified Time Tobacco Smoking Status Never Smoker Odilon nichole, [facility] 09/04/2021 11:16:24 Do You Have An Advance Directive? No Information n ot available 03/27/2021 What Is Your Level Of Alcohol Consumption? None Information not available 11/15/2020 Are You Blind Or Do You Have Difficulty Seeing? No Information n ot available 11/15/2020 What Is Your Level Of Caffeine Consumption? Occasional Information not available 11/15/2020 In The 14 Days Before Symptom Onset, Have You Had Close Contact With A Laboratory-confirm ed COVID-19 While That Case Was Ill? No Information n ot available 03/27/2021 In The 14 Days Before Symptom Onset, Have You Had Close Contact With A Person Who Is Under Investigation For COVID-19 While That Person Was Ill? No Information not available 03/27/2021 Have You Been To An Area Known To Be High Risk For COVID-19? No Information not available 03/27/2021 Are You Deaf Or Do You Have Serious Difficulty Hearing? No Information not available 11/15/2020 What Type Of Diet Are You Following? REGULAR Information n ot available 11/15/2020 Do You Use Your Seat Belt Or Car Seat Routinely? Yes Information not available 11/15/2020 Do You Have Smoke And Carbon Monoxide Detectors In Your Home? Yes Information not available 11/15/2020 How Much Tobacco Do You Smoke? No Information not available 03/27/2021 Do You Feel Stressed (tense, Restless, Nervous, Or Anxious, Or Unable To Sleep At Night)? [id number] Information not available 11/15/2020 Do You Use Any Illicit Or Recreational Drugs? No Information not available 11/15/2020 Do You Use Sunscreen Routinely? Yes Information not available 11/15/2020 Have You Used IV Drugs? No Information not available 03/27/2021 Sex: Unknown Functional Status Question Answer Note LastModified by [employer] ion Details LastModified Time Are you able to walk? YESWOREST Information not available 11/15/2020 What is your exercise level? Occasional Information not available 11/15/2020 Mental Status None recorded. Family History Nothing Reported. Medical History Condition Response History of abnormal pap Y Gynecological History Statement/Question Response Abnormal Pap Y Flow Moderate Date of LMP 08/20/2021 On BCP's at Conception? N N Was last menstrual period normal Y STIs/STDs Y HPV Vaccine N Colposcopy 06/21/2015 Duration of Flow (days) 7 14 Current Control Method Tubal Ligat ion Are cycles usually normal Y Sexually Active? Y Menses Monthly Y Age of first menstrual cycle 12 Date of Last Pap Smear 11/20/2020 Sexual Problems? N LMP Approximate N Obstetrics History GPAL:G 5 P 5 0 0 5 Type Value Full Term 5 Living 5 Total 5 Past Encounters Encounter ID Performer Location Encounter Start Date Encounter Closed Date Diagnosis/Indication Diagnosis SNOMED-CT Code Diagnosis ICD10 Code Diagnosis Note [id number] Tobin Joshi MD [facility] [address] [address] 11/08/2020 15:50:11 11/08/2020 16:51:03 Pain in pelvis 82687640 R10.2 This patient is a 35-year-ol d female with pelvic/vag inal pain. She has a short lived sharp pain in the vagina. We agreed to pelvic ultrasound . Patient is concerned about her persistent urinary tract infection it was recently treated. Her urine dip is normal. We are going to culture her urine. She declined any her ready on. She stated that she has already had some that was ineffectiv e. [id number] Karen Proctor [facility] [address],[facility] [address] 11/12/2020 09:35:10 11/12/2020 10:32:41 Pain in pelvis 34393309 R10.2 This patient is a 35-year-ol d female with pelvic/vag inal pain. She has a short lived sharp pain in the vagina. We agreed to pelvic ultrasound . Patient is concerned about her persistent urinary tract infection it was recently treated. Her urine dip is normal. We are going to culture her urine. She declined any her ready on. She stated that she has already had some that was ineffectiv e. [id number] [address] [facility] [address],[place] [address] 11/20/2020 10:11:32 11/20/2020 11:10:58 Gynecologic examination [id number] Z01.419 Take Calcium with Vitamin D 1200mg daily if not receiving in daily diet. It is strongly advised to have an annual flu shot and up can obtain at most pharmacies . If you have not had a TDap shot in the last 10 years you should obtain one as well. Discussed with patient & provided with informatio n regarding Gardisil vaccine to prevent the 4 strains for HPV that cause cervical cancer if under age 26. Encourage safe sexual practices, to use condoms and limit partners if not already in a monogamous relationsh ip. Do monthly self breast exams. Have mammogram yearly or every other year depending on family history. BRCA testing is now available for patients with strong genetic history of female cancer. If interested contact the office. Engage in daily exercise of low impact aerobic exercise 45-60 minutes 4-5 times weekly. Avoid tobacco and illicit drugs as well as using moderation with alcohol intake less than 1-2 8 oz beverages daily. This lifestyle behavior pattern will lead to less health conditions and longer life span. If BMI greater than 25 weight watchers or dietary consult advised. Patient received above instructio ns, and questions have been answered. If you have any questions please call or respond to this email. Patient was made aware of the patient portal and may obtain a paper copy of today's plan if desired. Pap/hpv sent 2015 Pap/hpv LGSIL No issues today. Did advise not wearing daily peripads as they harbor bacteria. Advise updated PCP [place]. [id number] ABI Wills[facility] [address] [address] 03/27/2021 11:22:25 03/27/2021 14:53:58 Mass of left breast [id number] N64.4 Discussed exam today & imaging.Sh jovan had a mammo/US 09/2020 that was wnlVery tearful & concernedM enses is due in next 10 daysPrefer her imaging be done after her menses starts. Neg famil hx of breast cancerDeni es any stressors or issues with anxiety today;need to consider assessing for anxiety moving forward. Very tearful this visit. Neg suicidal ideations or thoughts of self-harm Time spent in visit is a total of 15 mins with at least 50% of visit consisting of counseling and review of plan of care.Addit ional precaution pilar measures were taken to minimize potential exposure to the Covid-19 virus during this patient? s visit, including available hand hogshead filler upon arrive, hugh e check and being asked a series of screening questions. All staff wore face coverings during this encounter, as well as provided additional cleaning and sanitizing of all surfaces, including countertop s, pens, chairs, door handles, light switches, etc, prior to and following the patient? s visit. [id number] [facility] [address],[place] [address] 08/23/2021 16:18:03 08/23/2021 17:25:27 Vaginal pain [id number] R10.2 Today we agreed to update std/vag cx's; will call with resultsUna ble to elicit the vaginal pain that she voices concerns about today.Ther efore, we agreed that she would contact office on on of the days it is actually occurring and haver her come into office for an exam to see if there is anything that has changed. Time spent in visit is a total of 15 mins with at least 50% of visit consisting of counseling and review of plan of care.Addit ional precaution pilar measures were taken to minimize potential exposure to the Covid-19 virus during this patient? s visit, including available hand hogshead filler upon arrive, temperatur e check and being asked a series of screening questions. All staff wore face coverings during this encounter, as well as provided additional cleaning and sanitizing of all surfaces, including countertop s, pens, chairs, door handles, light switches, etc, prior to and following the patient? s visit. [id number] Anna Michel [facility] [address],[place] [address] 09/04/2021 11:16:09 09/04/2021 12:03:33 Pain in pelvis 10208455 R10.2 [id number] Jody Hameed MD [facility] [address],[place] [address] 09/10/2021 16:41:21 09/23/2021 15:15:51 Urinary symptoms [id number] R39.9 Pain in pelvis 57457600 R10.2 [id number] Norma Diaz [facility] [address],[place] [address] 07/03/2022 12:52:25 07/03/2022 15:02:31 Pain of breast 89738184 N64.4 Breast exam with no abnormal masses felt, tenderness in left breast from the 3 o'clock to 5 o'clock position.S he has had normal diagnostic mammogram last month - we do not have these records. Records requested. She has some minor irritation noted likely secondary to recently shaving. Avoid shaving until resolved.S he has an appointmen t scheduled with [facility] breast specialist next week - encouraged her to attend this appointmen t for further management .She would like a bilateral breast u/s as she did not have an u/s done - discussed order can be given, however insurance may not cover if recent diagnostic mammogram was WNL. She will check with her insurance, as well as breast specialist will provide further instructio ns on any additional imaging or follow-up needed.ED precaution s discussed Time spent in visit is a total of 30 mins with at least 50% of visit consisting of counseling and review of plan of care. Health Concerns Section Related Observation LastModified by Organization Detai ls LastModified Time None Recorded Concern Status LastModified by Organization Details LastModified Time None Recorded Advance Directives Directive N: Payers Encounter Date Sequence Insurance Name Policy Number Policy Patel Covered Member ID Patel Member ID Guarantor Name 03/27/2021 1 [facility] ON OR AFTER 01/03/21 (MEDICAID REPLACEMENT - HMO) [facility] [id number] [facility] 08/23/2021 1 [facility] - DOS ON OR AFTER 21 (MEDICAID REPLACEMENT - HMO) [facility] [id number] [facility] 09/04/2021 1 [facility] - DOS ON OR AFTER 21 (MEDICAID REPLACEMENT - HMO) [facility] [id number] [facility] 09/10/2021 1 [facility] - DOS ON OR AFTER 21 (MEDICAID REPLACEMENT - HMO) [facility] [id number] [facility] 07/03/2022 1 [facility] - DOS ON OR AFTER 21 (MEDICAID REPLACEMENT - HMO) [facility] [id number] [facility] Notes Date Note Type Note Provider Name and Address Organization Details Recorded Time 03/27/2021 text/html Breast MassRepor gulshan bypatient.Location: left; lower outer quadrant Onset/Timin-2 weeks; sudden Quality:painful; localized; tender (Bilateral breast tenderness) Severity:mild Duration:persistent Context:performs breast self examination Associated Symptoms:no fever; no skin redness; no nipple discharge; no breast swelling; no arm pain; no arm swelling; no chest pain Menstrual period is due to happen on 10 days.Neg Family hx of breast cancerVery tearfulDenies any recent stressful activities.Had mammo & US 09/2020 and it was completely WNL [facility] [address], [place], [address], [facility] 03/27/2021 13:46:02 08/23/2021 text/html Here today with concerns of a random vaginal pain that seems to happen the two days prior to the onset of her menstrual cycle. This has been happening for almost a year now.Never has any other pain: Neg pelvic, flank, abdominal, dyspareunia.The only other issue she will sometimes have problems with is insertion of a tampon.But once it is inside it feels fine.Monogamous.The random vaginal pain feels like a sharp shooting pain that shoots through her vagina.It is not associated with any activity and can happen at rest.It is rated 3-4 to 6-8 out of 10; and lasts no longer than a few seconds to 1-2mins at most.Sometimes sporadically throughout the day up to 3-4x's.She voices no other sx's in any other body system when this occurs.Her menses are monthly, heavy the first 1-2 days then 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 [facility]- [address], [place], [address], [facility] 08/23/2021 17:24:06 09/10/2021 text/html Anity is here fo r follow up US for pelvic pain. US 3 showed normal uterus, normal right ovary, and left ovary with a 2.5cm simple cyst. She had a CT 09/08 in [place] for RLQ pain that was noral and a renal US 09/10 that was normal. UA with trace of blood. She also feels like she is incompletely emptying unless she pushes for a couple months. She had a cysto a couple years ago for hematuria with [facility] at [facility]. Jody Hameed MD [address], [place], [address], [facility] 09/23/2021 09:28:27 07/03/2022 text/html 37yo Presents fo r evaluation of left breast pain and left breast rashLeft breast pain has been present for 2-3 months - saw her PCP for this issue and had a diagnostic mammogram last month. Normal findings per patient.Feels the pain in the outer quadrant of the left breast, tenderness that comes and goes.Rash started about 1-2 weeks ago, pimple like rash. Noticed after she shaved her breast. There is no itching or irritation present.She does not drink any caffeineSees a deicer repairer for SOB, has felt chest pain in the past but none currentlyShe has an appointment next week to see a breast specialist at [facility] for further management. [facility] [address], [place], [address], [facility] 07/03/2022 14:18:17 OBGyn Episode Ob Episode Information Episode Created Date Number of Fetuses Patient Bloodtype Patient rh Status Prepregnancy Weight lbs Domestic Partner Domestic Partner Phone Father Name Jacquard Loom Card Changer Status 11/09/19 21 1 CLOSED Fetus Data First Name Last Name Admitted to NICU Weight (g) Sex Living Outcome Pediatric Complications Fetus ID Race Codes Race Delivery Type Full Term 9674 Repeat Omer Calculation Initial Omer Date Initial Exam Date Initial Exam Provider Initial Ultrasound Date Last Menstrual Period Date Ultra Sound Weeks Gestation 0 Eighteen To Twenty Week Omer Update Ultra Sound Date Fundal Height At Umbil Quickening Date Ultra Sound Latest Weeks Gestation Final Omer Confirmed By Final Omer Confirmed Date Final Omer Date Ultra Sound Latest Days Gestation 0 0 Menstrual History Last Menstrual Date Menses Monthly On Bcp Conception Prior Menses Frequency Hcg Plus Date Menarche Onset Age Delivery Information Delivery Date Delivery Type Labor Anesthesia Weeks Gestation Incision Type Labor Labor Length Hrs Delivered By Post Complications Tubal Sterilization Discharge Date Comments 6 Discharge Information Feeding Method Contraceptive Method Maternal HG B and HCT Levels Ob Episode Information Episode Created Date Number of Fetuses Patient Bloodtype Patient rh Status Prepregnancy Weight lbs Domestic Partner Domestic Partner Phone Father Name Jacquard Loom Card Changer Status 11/09/19 21 1 CLOSED Fetus Data First Name Last Name Admitted to NICU Weight (g) Sex Living Outcome Pediatric Complications Fetus ID Race Codes Race Delivery Type M Full Term 9670 Repeat Omer Calculation Initial Omer Date Initial Exam Date Initial Exam Provider Initial Ultrasound Date Last Menstrual Period Date Ultra Sound Weeks Gestation 0 Eighteen To Twenty Week Omer Update Ultra Sound Date Fundal Height At Umbil Quickening Date Ultra Sound Latest Weeks Gestation Final Omer Confirmed By Final Omer Confirmed Date Final Omer Date Ultra Sound Latest Days Gestation 0 0 Menstrual History Last Menstrual Date Menses Monthly On Bcp Conception Prior Menses Frequency Hcg Plus Date Menarche Onset Age Delivery Information Delivery Date Delivery Type Labor Anesthesia Weeks Gestation Incision Type Labor Labor Length Hrs Delivered By Post Complications Tubal Sterilization Discharge Date Comments 0 40 Discharge Information Feeding Method Contraceptive Method Maternal HG B and HCT Levels Ob Episode Information Episode Created Date Number of Fetuses Patient Bloodtype Patient rh Status Prepregnancy Weight lbs Domestic Partner Domestic Partner Phone Father Name Jacquard Loom Card Changer Status 11/09/19 21 1 CLOSED Fetus Data First Name Last Name Admitted to NICU Weight (g) Sex Living Outcome Pediatric Complications Fetus ID Race Codes Race Delivery Type Full Term 9671 Repeat Omer Calculation Initial Omer Date Initial Exam Date Initial Exam Provider Initial Ultrasound Date Last Menstrual Period Date Ultra Sound Weeks Gestation 0 Eighteen To Twenty Week Omer Update Ultra Sound Date Fundal Height At Umbil Quickening Date Ultra Sound Latest Weeks Gestation Final Omer Confirmed By Final Omer Confirmed Date Final Omer Date Ultra Sound Latest Days Gestation 0 0 Menstrual History Last Menstrual Date Menses Monthly On Bcp Conception Prior Menses Frequency Hcg Plus Date Menarche Onset Age Delivery Information Delivery Date Delivery Type Labor Anesthesia Weeks Gestation Incision Type Labor Labor Length Hrs Delivered By Post Complications Tubal Sterilization Discharge Date Comments 8 40 Discharge Information Feeding Method Contraceptive Method Maternal HG B and HCT Levels Ob Episode Information Episode Created Date Number of Fetuses Patient Bloodtype Patient rh Status Prepregnancy Weight lbs Domestic Partner Domestic Partner Phone Father Name Jacquard Loom Card Changer Status 11/09/19 21 1 CLOSED Fetus Data First Name Last Name Admitted to NICU Weight (g) Sex Living Outcome Pediatric Complications Fetus ID Race Codes Race Delivery Type 3203.26 6704 Full Term 9672 Primary Omer Calculation Initial Omer Date Initial Exam Date Initial Exam Provider Initial Ultrasound Date Last Menstrual Period Date Ultra Sound Weeks Gestation 0 Eighteen To Twenty Week Omer Update Ultra Sound Date Fundal Height At Umbil Quickening Date Ultra Sound Latest Weeks Gestation Final Omer Confirmed By Final Omer Confirmed Date Final Omer Date Ultra Sound Latest Days Gestation 0 0 Menstrual History Last Menstrual Date Menses Monthly On Bcp Conception Prior Menses Frequency Hcg Plus Date Menarche Onset Age Delivery Information Delivery Date Delivery Type Labor Anesthesia Weeks Gestation Incision Type Labor Labor Length Hrs Delivered By Post Complications Tubal Sterilization Discharge Date Comments 9 Discharge Information Feeding Method Contraceptive Method Maternal HG B and HCT Levels Ob Episode Information Episode Created Date Number of Fetuses Patient Bloodtype Patient rh Status Prepregnancy Weight lbs Domestic Partner Domestic Partner Phone Father Name Jacquard Loom Card Changer Status 11/09/19 21 1 CLOSED Fetus Data First Name Last Name Admitted to NICU Weight (g) Sex Living Outcome Pediatric Complications Fetus ID Race Codes Race Delivery Type Full Term 9673 Repeat Omer Calculation Initial Omer Date Initial Exam Date Initial Exam Provider Initial Ultrasound Date Last Menstrual Period Date Ultra Sound Weeks Gestation 0 Eighteen To Twenty Week Omer Update Ultra Sound Date Fundal Height At Umbil Quickening Date Ultra Sound Latest Weeks Gestation Final Omer Confirmed By Final Omer Confirmed Date Final Omer Date Ultra Sound Latest Days Gestation 0 0 Menstrual History Last Menstrual Date Menses Monthly On Bcp Conception Prior Menses Frequency Hcg Plus Date Menarche Onset Age Delivery Information Delivery Date Delivery Type Labor Anesthesia Weeks Gestation Incision Type Labor Labor Length Hrs Delivered By Post Complications Tubal Sterilization Discharge Date Comments 2 40 Discharge Information Feeding Method Contraceptive Method Maternal HG B and HCT Levels
--- OUTSIDE RECORDS SUMMARY | 2024-07-28 20:05 | XMS_ITS | Referral Summary ---
Author Organization [facility] Address [address] [place] [address] Care Team Providers Care Optical Instrument Inspector Name Role Phone Addie Jennings MD Unavailable [phone] Thang Heck MD Primary Care Provider Source Comments [facility],non-owned Affiliates and Associated Physician Practices is amultiple site organization consisting of ambulatory clinics and hospital sitesin [place], [place], [place]. This disclosure is being madepursuant to the Care Everywhere program and may not contain all information available regarding this patient. Last updated 18.[facility] Encounters Date Type Department Care Team Description 07/04/2024 Travel from Last 3 Months Allergies Active Allergy Reactions Criticality Noted Date Comments Nsaids Other Low Reaction: Medications * Be aware that medications may not be up to date on this document. Alwaysverify current medications with the patient. 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 Iron deficiency anemia secon jammie to inadequate dietary iron intake 02/04/2018 Low [...] in G2 Adhesion, significant pelvic adhesive ds 010 Overview (03/30/2010): Significant adhesions on last operative note Immunizations Name Administration Dates Next Due TDAP (7yrs+) 07/06/2017 Social History Tobacco Use Types Packs/Day Years [...] Comments Blood Pressure 136/73 07/03/2022 3:58 PM SEMAPHORE OPERATOR Pulse 85 07/03/2022 3:58 PM SEMAPHORE OPERATOR Temperature 37.1 ??C (98.7 ??F) 07/03/2022 3:58 PM CS T Respiratory Rate 16 07/03/2022 3:58 PM SEMAPHORE OPERATOR Oxygen Saturation 100% 07/03/2022 3:58 PM SEMAPHORE OPERATOR Inhaled Oxygen Concentration - - Weight 117.9 kg (260 lb) 07/03/2022 3:58 PM SEMAPHORE OPERATOR Height 162.6 cm (5' 4 ) 07/03/2022 3:58 PM SEMAPHORE OPERATOR Body Mass Index 44.63 07/03/2022 3:58 PM SEMAPHORE OPERATOR Plan of Treatment Not on file Procedures Procedure Name Priority Date/Time Associated Diagnosis [...] Resulting Agency Comment Lab Testing performed at: [facility] [address] [place] [address] ??[facility] [id number] Lottie Caridadvalenciaalize FRANCHISE DEVELOPMENT MANAGER-THERAPY COORDINATOR LAB - CHEMI STRY ORDERABLES [facility] ACCOUNT BILL [address] [place] [address] * ALIZE DIAG DIRECT DIG IMAGE BILATERAL [id number] (05/07/2018 9:24 AM CDT) Anatomical Region Laterality Modality Breast Bilateral Mammography 05/07/2018 9:36 AM CDT Addenda Addendum by Mellisa Drake MD on 06/04/2018 11:19 AM SEMAPHORE OPERATOR Previous mammograms from [facility] on 04/10/2016 and 03/27/2016 are now [...] participate in the care of your patient. [facility] Breast Care utilizes [employer] as a reminder system to notify patients [...] utilized. PRIOR: Previous mammogram was performed at [facility]. This was not available for review at [...] utilized. PRIOR: Previous mammogram was performed at [facility]. This was not available for review at [...] participate in the care of your patient. [facility] Breast [facility] utilizes [employer] as a reminder system to notify patients of their next recommended mammogram. Reading Radiologist: Mellisa Drake MD on 05/07/2018 at 10:53 AM Mellisa Drake MD MAMMO ORDERABLES from Last 3 Months or Most Recently Relevant to Health Maintenance Advance Directives * Full Code (Latest Code Status on File) Date Activated Date Inactivated Comments 03/30/2010 2:48 PM 04/09/2010 5:05 AM Care Teams Optical Instrument Inspector Relationship Specialty Start Date End Date Thang Heck MD [address] [place] [address] PCP - General 06/10/22 Addie Jennings MD [address] [facility] [address] [place] [id number] Endocrinology 01/31/20
--- OUTSIDE RECORDS SUMMARY | 2024-07-28 20:05 | XMS_ITS | Clinical Summary ---
Author Organization [facility] Address [address] [address] Phone Care Team Providers Care Hat Marker Name Role Phone Provider, None Primary Care Provider Unavailabl e Allergies No known active allergies Medications No known medications Active Problems No known active problems Encounters Date Type Department Care Team Description 05/23/2024 7:00 PM VOCATIONAL CHILDCARE TEACHER - 05/23/2024 10:15 PM VOCATIONAL CHILDCARE TEACHER Emergency [facility] [address] [place] [address] Maurice Coy MD Acute nonintractable headache, unspecified headache type Discharge Disposition: Discharged to home or Selfcare 05/23/2024 Travel from Last 3 Months Social History Tobacco Use Types Packs/Day Years Used Date Smoking Tobacco: Never Smokeless Tobacco: Never Tobacco Cessation:Counseling Given: Not Answered Alcohol Use Standard Drinks/Week Comments Never 0 (1 standard drink = 0.6 oz pur e alcohol) Education Answer Date Recorded What is the highest level of school you have completed or the highest degree you have received? GED or equivalent Comments No Sex and Gender Information Value Date Recorded Sex Assigned at Female 05/23/2024 7:05 PM VOCATIONAL CHILDCARE TEACHER Legal Sex Female 1:02 PM VOCATIONAL CHILDCARE TEACHER Gender Identity Female 05/23/2024 7:05 PM VOCATIONAL CHILDCARE TEACHER Sexual Orientation Not on file Last Filed Vital Signs Vital Sign Reading Time Taken Comments Blood Pressure 143/86 05/23/2024 8:00 PM VOCATIONAL CHILDCARE TEACHER Pulse 79 05/23/2024 10:00 PM VOCATIONAL CHILDCARE TEACHER Temperature 36.8 ??C (98.2 ??F) 05/23/2024 6:28 PM CS T Respiratory Rate 19 05/23/2024 6:28 PM VOCATIONAL CHILDCARE TEACHER Oxygen Saturation 100% 05/23/2024 10:00 PM VOCATIONAL CHILDCARE TEACHER Inhaled Oxygen Concentration - - Weight 117.9 kg (260 lb) 05/23/2024 6:28 PM VOCATIONAL CHILDCARE TEACHER Height 167.6 cm (5' 6 ) 05/23/2024 6:28 PM VOCATIONAL CHILDCARE TEACHER Body Mass Index 41.97 05/23/2024 6:28 PM VOCATIONAL CHILDCARE TEACHER Plan of Treatment Health Maintenance Due Date Last Done Comments Hepatitis C Virus (HCV) Screening 1983 Hepatitis B Immunization (1 of 3 - 19+ 3-dose series) 2002 Pap Smear 2004 Cervical Cancer Screening (CCS) 2013 HPV/Cotest 2013 SARS-COV-2 Immunization ( season) 2024 Respiratory Syncytial Virus (RSV) Immunization (Adult) (1 - 1-dose 75+ series) 2058 DTaP/Tdap/Td Immunization Discontinued 05/26/2018, 07/2017 TdaP Immunization Completed 05/26/2018, 07/06/2017 Discussion re Starting/Frequency of Mammograms Completed 06/01/2023, 08/18/2022, 06/04/2022, Additional history exists Influenza Immunization Completed , 06/02/2023, 04/14/2022, Additional history exists Meningococcal Immunization (ACWY) Aged Out No longer eligible based on patient's age to complete this topic Pneumococcal Immunization Combined Aged Out No longer eligible based on patient's age to complete this topic Rotavirus Immunization Aged Out No lo nger eligible based on patient's age to complete this topic Procedures Procedure Name Priority Date/Time Associated Diagnosis Comments CT HEAD OR BRAIN WO CONTRAST Stat with Interpretation 05/23/2024 8:22 PM VOCATIONAL CHILDCARE TEACHER URINALYSIS REFLEX IF INDICATED BY ABNORMAL RESULTS STAT 05/23/2024 8:04 PM VOCATIONAL CHILDCARE TEACHER POCT URINE HCG () STAT 05/23/2024 8:03 PM VOCATIONAL CHILDCARE TEACHER BLUE TOP TUBE STAT 05/23/2024 6:41 PM VOCATIONAL CHILDCARE TEACHER CBC WITH AUTO DIFFERENTIAL STAT 05/23/2024 6:41 PM VOCATIONAL CHILDCARE TEACHER TROPONIN I, HIGH SENSITIVITY (HSTRP) STAT 05/23/2024 6:41 PM VOCATIONAL CHILDCARE TEACHER EXTRA TUBES STAT 05/23/2024 6:41 PM VOCATIONAL CHILDCARE TEACHER CMP (COMPREHENSIVE METABOLIC PANEL) STAT 05/23/2024 6:41 PM VOCATIONAL CHILDCARE TEACHER COMPLETE BLOOD COUNT (CBC) WITH DIFF STAT 05/23/2024 6:41 PM VOCATIONAL CHILDCARE TEACHER POCT GLUCOSE STAT 05/23/2024 6:38 PM VOCATIONAL CHILDCARE TEACHER EKG 12 LEAD STAT 05/23/2024 6:31 PM VOCATIONAL CHILDCARE TEACHER EKG SCAN 05/23/2024 12:00 AM VOCATIONAL CHILDCARE TEACHER from Last 3 Months Results * CT HEAD OR BRAIN WO CONTRAST (05/23/2024 8:22 PM VOCATIONAL CHILDCARE TEACHER) Anatomical Region Laterality Modality Head N/A Computed Tomogra phy 05/23/2024 9:26 PM VOCATIONAL CHILDCARE TEACHER Impressions 05/23/2024 9:29 PM VOCATIONAL CHILDCARE TEACHER IMPRESSION: 1. ?? No acute intracranial findings. Narrative 05/23/2024 9:29 PM VOCATIONAL CHILDCARE TEACHER EXAM DESCRIPTION: CT HEAD OR BRAIN WO CONTRAST REASON FOR STUDY: pt c/o headache, some nuasea, and LT lower jaw numbness that began on Thursday at around 2100. no hx of surgery ?? TECHNIQUE: Axial images acquired through the brain without intravenous contrast. ??Images stored on PACS. ?? Automated exposure control was used as a dose optimization technique for this examination. COMPARISON: None available FINDINGS: BRAIN: ?? No hemorrhage, edema or mass effect. No recent infarct. ?The hyatt-white matter differentiation is preserved. ??No cerebral atrophy. ??Normal size and morphology of the ventricular system. ??No acute intraventricular hemorrhage. ??Basal cisterns are patent. ??No midline shift. ? EXTRA-AXIAL SPACES: ?? No fluid collections. No masses. CALVARIUM: ?? No fracture. SINUSES/MASTOIDS: ?? No fluid or mucosal thickening. ORBITS: ?? No significant abnormality. OTHER: ?? No other significant abnormality. THIS IS AN ELECTRONICALLY VERIFIED FINAL REPORT 05/23/2024 9:26 PM - Electronically signed by ??Chace Singer M.D. AT: AT D: ??05/23/2024 9:26 PM T: ??05/23/2024 9:26 PM Report ID: [id number] Reading Location: ??[id number] Procedure Note Chace Singer MD - 05/23/2024 EXAM DESCRIPTION: CT HEAD OR BRAIN WO CONTRAST REASON FOR STUDY: pt c/o headache, some nuasea, and LT lower jaw numbness that began on Thursday at around 2100. no hx of surgery TECHNIQUE: Axial images acquired through the brain without intravenous contrast. Images stored on PACS. Automated exposure control was used as a dose optimization technique for this examination. COMPARISON: None available FINDINGS: BRAIN: No hemorrhage, edema or mass effect. No recent infarct. The hyatt-white matter differentiation is preserved. No cerebral atrophy. Normal size and morphology of the ventricular system. No acute intraventricular hemorrhage. Basal cisterns are patent. No midline shift. EXTRA-AXIAL SPACES: No fluid collections. No masses. CALVARIUM: No fracture. SINUSES/MASTOIDS: No fluid or mucosal thickening. ORBITS: No significant abnormality. OTHER: No other significant abnormality. THIS IS AN ELECTRONICALLY VERIFIED FINAL REPORT 05/23/2024 9:26 PM - Electronically signed by Chace Singer M.D. AT: AT Report ID: [id number] Reading Location: [id number] IMPRESSION: 1. No acute intracranial findings. Maurice Coy MD [facility] CT ORDERABLES Fi nal Result * (ABNORMAL) URINALYSIS REFLEX IF INDICATED BY ABNORMAL RESULTS (05/23/2024 8:04 PM VOCATIONAL CHILDCARE TEACHER) SPECIFIC GRAVITY 1.010 1.003 - 1.030 05/23/2024 8:40 PM VOCATIONAL CHILDCARE TEACHER [facility] URINE PH 7.0 5.0 - 9.0 05/23/2024 8:40 PM VOCATIONAL CHILDCARE TEACHER [facility] WBC ESTERASE 25 /ul(A) Negative 05/23/2024 8:40 PM VOCATIONAL CHILDCARE TEACHER [facility] NITRITE Negative Negative 05/23/2024 8:40 PM VOCATIONAL CHILDCARE TEACHER [facility] PROTEIN, RANDOM URINE 15 mg/dL(A) Negative 05/23/2024 8:40 PM VOCATIONAL CHILDCARE TEACHER [facility] URINE GLUCOSE, QUAL Negative Negative 05/23/2024 8:40 PM VOCATIONAL CHILDCARE TEACHER [facility] URINE KETONES Negative Negative 05/23/2024 8:40 PM VOCATIONAL CHILDCARE TEACHER [facility] UROBILINOGEN Normal Normal mg/dL 05/23/2024 8:40 PM VOCATIONAL CHILDCARE TEACHER [facility] URINE BLOOD Negative Negative renee/ul 05/23/2024 8:40 PM VOCATIONAL CHILDCARE TEACHER [facility] URINALYSIS COLOR Yellow 05/23/20 8:40 PM VOCATIONAL CHILDCARE TEACHER [facility] URINALYSIS CLARITY Slightly Cloudy 05/23/2024 8:40 PM VOCATIONAL CHILDCARE TEACHER [facility] WBC (Urine) 0-5 Negative, 0-5 /hpf 05/23/2024 8:40 PM VOCATIONAL CHILDCARE TEACHER [facility] URINE RBC'S 0-2 Negative, 0-2 /hpf 05/23/2024 8:40 PM VOCATIONAL CHILDCARE TEACHER [facility] EPITHELIAL CELLS Large amount squamous /lpf 05/23/2024 8:40 PM VOCATIONAL CHILDCARE TEACHER [facility] BACTERIA, URINE Few(A) Negative /hpf 05/23/2024 8:40 PM VOCATIONAL CHILDCARE TEACHER [facility] Urine URINE SPECIMEN / Unknown Non-Phlebotomy Collection / Unknown 05/23/2024 8:04 PM VOCATIONAL CHILDCARE TEACHER 05/23/2024 8:14 PM VOCATIONAL CHILDCARE TEACHER us Wendy Stoddard MD URINE ORDERABLES Final Result [facility] [address] [place] [address] * POCT Urine HCG () (05/23/2024 8:03 PM VOCATIONAL CHILDCARE TEACHER) [facility] POC URINE Negative POC URINE CONTROL Csm Consultant Pass Urine 05/23/2024 8:03 PM VOCATIONAL CHILDCARE TEACHER Wendy Stoddard MD POINT OF CARE TESTING (MANUAL ) Final Result * TROPONIN I, HIGH SENSITIVITY (HSTRP) (05/23/2024 6:41 PM VOCATIONAL CHILDCARE TEACHER) [facility] TROPONIN I, HIGH SENSITIVITY- RODRIGUEZ <3 <=14 ng/L 05/23/2024 10:01 PM VOCATIONAL CHILDCARE TEACHER [facility] Comment: High-sensitivity troponin I results are reported in ng/L making the result appear to be 1,000 times higher than the contemporary troponin I value which is reported in ng/ml. Results from [facility]. Blood Venipuncture / Unknown 05/23/2024 6:41 PM VOCATIONAL CHILDCARE TEACHER 05/23/2024 6:50 PM VOCATIONAL CHILDCARE TEACHER Maurice Coy MD CHEMISTRY ORDERABLES Final Result Performing Organization Address City/[facility]/ZIP Co de Phone Number [facility] [address] [place] [address] * Blue Top Tube (05/23/2024 6:41 PM VOCATIONAL CHILDCARE TEACHER) Blood No Phlebotomy Charged / Unknown 05/23/2024 6:41 PM VOCATIONAL CHILDCARE TEACHER 05/23/2024 6:53 PM VOCATIONAL CHILDCARE TEACHER Wendy Stoddard MD HEMATOLOGY ORDERABLES Final R esult [facility] [address] [place] [address] * CBC with Auto Differential (05/23/2024 6:41 PM VOCATIONAL CHILDCARE TEACHER) [facility] WBC 8.85 4.00 - 12.00 10(3)/mcL 05/23/2024 6:56 PM [facility] RBC 4.68 3.80 - 5.30 10(6)/mcL 05/23/2024 6:56 PM [facility] HEMOGLOBIN (HGB) 12.8 12.0 - 15.8 g/dL 05/23/2024 6:56 PM [facility] HEMATOCRIT (HCT) 39.2 36.0 - 47.0 % 05/23/2024 6:56 PM [facility] MCV 83.8 82.0 - 96.0 fL 05/23/2024 6:56 PM [facility] MCH 27.4 26.0 - 34.0 pg 05/23/2024 6:56 PM [facility] MCHC 32.7 31.0 - 36.0 g/dL 05/23/2024 6:56 PM [facility] PLATELET COUNT 353 140 - 440 10(3)/[facility] 05/23/2024 6:56 PM [facility] RDW 13.2 11.8 - 15.5 % 05/23/2024 6:56 PM [facility] MPV 9.7 9.7 - 12.4 fL 05/23/2024 6:56 PM [facility] NEUTROPHILS 56.2 47.0 - 73.0 % 05/23/2024 6:56 PM [facility] LYMPHOCYTES 35.3 18.0 - 42.0 % 05/23/2024 6:56 PM [facility] MONOCYTES 6.7 4.0 - 12.0 % 05/23/2024 6:56 PM [facility] EOSINOPHILS 1.2 0.0 - 5.0 % 05/23/2024 6:56 PM [facility] BASOPHILS 0.6 0.0 - 1.0 % 05/23/2024 6:56 PM [facility] ABSOLUTE NEUTROPHILS 4.98 1.60 - 7.70 10(3)/[facility] 05/23/2024 6:56 PM VOCATIONAL CHILDCARE TEACHER [facility] ABSOLUTE LYMPHOCYTES 3.12 1.30 - 3.20 10(3)/[facility] 05/23/2024 6:56 PM VOCATIONAL CHILDCARE TEACHER [facility] ABSOLUTE MONOCYTES 0.59 0.20 - 1.00 10(3)/[facility] 05/23/2024 6:56 PM VOCATIONAL CHILDCARE TEACHER [facility] ABSOLUTE EOSINOPHIL 0.11 0.00 - 0.40 10(3)/[facility] 05/23/2024 6:56 PM VOCATIONAL CHILDCARE TEACHER [facility] ABSOLUTE BASOPHILS 0.05 0.00 - 0.10 10(3)/[facility] 05/23/2024 6:56 PM VOCATIONAL CHILDCARE TEACHER [facility] NRBC PER 100 WBC 0 05/23/20 6:56 PM [facility] Blood Venipuncture / Unknown 05/23/2024 6:41 PM VOCATIONAL CHILDCARE TEACHER 05/23/2024 6:50 PM VOCATIONAL CHILDCARE TEACHER us Wendy Stoddard MD HEMATOLOGY ORDERABLES Final R esult [facility] [address] [place] [address] * (ABNORMAL) CMP (Comprehensive Metabolic Panel) (05/23/2024 6:41 PM VOCATIONAL CHILDCARE TEACHER) SODIUM 138 136 - 145 mmol/L 05/23/2024 7:14 PM [facility] POTASSIUM 3.9 3.5 - 5.1 mmol/L 05/23/2024 7:14 PM [facility] CHLORIDE 107 98 - 107 mmol/L 05/23/2024 7:14 PM [facility] CO2, VENOUS 23 22 - 30 mmol/L 05/23/2024 7:14 PM [facility] ANION GAP 11.9 <18.0 mmol/L 05/23/2024 7:14 PM [facility] GLUCOSE 93 70 - 99 mg/dL 05/23/2024 7:14 PM [facility] BUN 10 5 - 18 mg/dL 05/23/2024 7:14 PM [facility] CREATININE, BLOOD 0.73 0.60 - 1.00 mg/dL 05/23/2024 7:14 PM [facility] BUN/CREATININE RATIO 14 12 - 20 ratio 05/23/2024 7:14 PM [facility] TOTAL PROTEIN 7.9 6.3 - 8.2 g/dL 05/23/2024 7:14 PM [facility] ALBUMIN 4.3 3.5 - 5.0 g/dL 05/23/2024 7:14 PM [facility] A/G RATIO 1.2 1.0 - 2.2 05/23/2024 7:14 PM [facility] CALCIUM 9.6 8.7 - 10.5 mg/dL 05/23/2024 7:14 PM [facility] T BILI 0.3 0.2 - 1.2 mg/dL 05/23/2024 7:14 PM [facility] SGOT (AST) 47(H) 5 - 34 U/L 05/23/2024 7:14 PM [facility] SGPT (ALT) 51 0 - 55 U/L 05/23/2024 7:14 PM [facility] ALKALINE PHOSPHATASE 100 40 - 150 U/L 05/23/2024 7:14 PM [facility] GFR, ESTIMATED >60 >=60 05/23/2024 7:14 PM [facility] Comment: Creatinine Clearance is the preferred criteria for selecting drug dose adjustments in renally impaired patients. ??The GFR is provided as additional pertinent clinical information. GFR is reported in mL/min/1.73 sq m. Calculation based on the Chronic Kidney Disease Epidemiology Collaboration (CKD- EPI) equation refit without adjustment for race. GFR, EST. >60 >=60 024 7:14 PM [facility] GFR, EST. NONAFRICAN >60 >=60 05/23/2024 7:14 PM VOCATIONAL CHILDCARE TEACHER [facility] Blood Venipuncture / Unknown 05/23/2024 6:41 PM VOCATIONAL CHILDCARE TEACHER 05/23/2024 6:50 PM VOCATIONAL CHILDCARE TEACHER us Wendy Stoddard MD CHEMISTRY ORDERABLES Final Re sult Performing Organization Address City/[facility] Co de Phone Number [facility] [address] [place] [address] * POCT Glucose (05/23/2024 6:38 PM VOCATIONAL CHILDCARE TEACHER) Pathologist [facility] GLUCOSE,BEDSIDE POCT 91 70 - 99 mg/dL 05/23/2024 6:54 PM VOCATIONAL CHILDCARE TEACHER [facility] Blood 05/23/2024 6:38 PM VOCATIONAL CHILDCARE TEACHER 05/23/2024 6:54 PM VOCATIONAL CHILDCARE TEACHER us None Provider POINT OF CARE TESTING Final Resu lt Performing Organization Address [facility] Co de Phone Number [facility] [address] [place] [address] * EKG 12 LEAD (05/23/2024 6:31 PM VOCATIONAL CHILDCARE TEACHER) Ventricular Rate 79 BPM EXTERNAL EKG Atrial Rate 79 BPM EXTERNAL EKG P-R Interval 160 ms EXTERNAL EKG QRS Duration 86 ms EXTERNAL EKG Q-T Duration 394 ms EXTERNAL EKG QTC CALCULATION 451 ms EXTERNAL EKG P [place] 33 degrees EXTERNAL EKG R [place] 13 degrees EXTERNAL EKG T [place] 30 degrees EXTERNAL EKG 05/23/2024 6:31 PM VOCATIONAL CHILDCARE TEACHER Impressions EXTERNAL EKG - 05/24/2024 1:00 PM VOCATIONAL CHILDCARE TEACHER Normal sinus rhythm Normal ECG When compared with ECG of 03/27/2024 No significant change was found ~ ~ Confirmed by RUBÉN FERRARO ([id number]) on 05/24/2024 1:00:31 PM Narrative Procedure Note Rubén Ferraro MD - 05/24/2024 IMPRESSION: Normal sinus rhythm Normal ECG When compared with ECG of 03/27/2024 No significant change was found ~ ~ Confirmed by RUBÉN FERRARO ([id number]) on 05/24/2024 1:00:31 PM us Wendy Stoddard MD IMG ECG ORDERABLES Final Resu lt EXTERNAL EKG * EKG SCAN (05/23/2024 12:00 AM VOCATIONAL CHILDCARE TEACHER) 05/23/2024 us Provider Scan IMG ECG ORDERABLES Final Result RESULTING AGENCY from Last 3 Months Insurance MEDICAID [facility] PL[facility] Care Teams Hat Marker Relationship Specialty Start Date End Date Provider, None [place] PCP - General 08/05/22
--- OUTSIDE RECORDS SUMMARY | 2024-07-28 20:05 | XMS_ITS | Patient Health Summary ---
Author Organization [facility] Address [address] [place] [address] Care Team Providers Care Surgical Lead Name Role Phone Addie Jennings MD Unavailable [phone] Thang Heck MD Primary Care Provider [phone] Note from [facility] [place]non-owned Affiliates and Associated Physician Practices is amultiple site organization consisting of ambulatory clinics and hospital sitesin [place], [place], [place] and [place]. This disclosure is being madepursuant to the Care Everywhere program and may not contain all information available regarding this patient. Last updated 18.[facility] Allergies * Nsaids(Other) -Low Criticality Medications * Be aware that medications may not be up to date on this document. Alwaysverify current medications with the patient. 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) Hypertriglyceridemia 09/26/2015 Eating disorder 07/30/2015 Class 2 obesity due to exces s calories without serious comorbidity with body mass index (BMI) of 36.0 to 36.9 in adult 07/19/2015 Placenta Previa, with vaginal bleeding 0 History of Section x 3 with at least 1 Classical 03/30/2010 Hyperthyroidism 03/30/2010 with poor obstetric history 03/30/2010 Adhesion, significant pelvic adhesive ds 010 Immunizations * TDAP (7yrs+)(Given 07/06/2017) Social History Tobacco Use Types Packs/Day Years [...] Comments Blood Pressure 136/73 07/03/2022 3:58 PM CONSTRUCTION SERVICES TECHNICIAN Pulse 85 07/03/2022 3:58 PM CONSTRUCTION SERVICES TECHNICIAN Temperature 37.1 ??C (98.7 ??F) 07/03/2022 3:58 PM CS T Respiratory Rate 16 07/03/2022 3:58 PM CONSTRUCTION SERVICES TECHNICIAN Oxygen Saturation 100% 07/03/2022 3:58 PM CONSTRUCTION SERVICES TECHNICIAN Inhaled Oxygen Concentration - - Weight 117.9 kg (260 lb) 07/03/2022 3:58 PM CONSTRUCTION SERVICES TECHNICIAN Height 162.6 cm (5' 4 ) 07/03/2022 3:58 PM CONSTRUCTION SERVICES TECHNICIAN Body Mass Index 44.63 07/03/2022 3:58 PM CONSTRUCTION SERVICES TECHNICIAN Procedures * LAB RESULTS ORDER(Performed 02/25/2023) * LAB RESULTS ORDER(Performed 02/25/2023) * EKG 12-LEAD(Performed 07/03/2022) Performed for Other chest pain * XR CHEST 2VW(Performed 07/03/2022) Performed for Other chest pain * CARDIAC RHYTHM STRIP ORDER(Performed 06/05/2022) * GROSS + MICRO EXAM (ILL)(Performed 06/04/2022) Performed for Gastroesophageal reflux disease, unspecified whether esophagitis present, Status postbariatric surgery * WA EGD FLEX TRANSORAL W BX SNGL OR MULT(Performed 06/04/2022) Performed for Gastroesophageal reflux disease, unspecified whether esophagitis present, Status postbariatric surgery * CT LUMBAR SPINE WO CONTRAST(Performed 04/20/2022) Performed for Acute right-sided low back pain with right-sided sciatica * HCG BETA BLOOD QUANTITATIVE(Performed 04/20/2022) * URINALYSIS W/MICROSCOPIC NO CULTURE(Performed 04/20/2022) * COMPREHENSIVE METABOLIC PANEL(Performed 04/20/2022) * CBC W AUTO DIFFERENTIAL(Performed 04/20/2022) * EKG 12-LEAD(Performed 03/14/2022) * XR CHEST 2VW(Performed 03/14/2022) * T4 FREE 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/31/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 * TSH 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/31/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 * TSH(Performed 01/03/2019) Performed for Vern's disease * CBC W AUTO DIFFERENTIAL(Performed 12/28/2018) Performed for Iron deficiency anemia secondary to inadequate dietary iron intake * VITAMIN D 25-HYDROXY(Performed 12/28/2018) Performed for S/P laparoscopic sleeve gastrectomy, Vitamin D deficiency * VITAMIN B12 FOLATE PANEL(Performed 12/28/2018) Performed for S/P laparoscopic sleeve gastrectomy, B12 deficiency * COMPREHENSIVE METABOLIC PANEL(Performed 12/28/2018) Performed for S/P laparoscopic sleeve gastrectomy, Class 3 severe obesity due to excess calories without serious comorbidity with body mass index (BMI) of 40.0 to 44.9 in adult (HCC) * LIPID PROFILE(Performed 12/28/2018) Performed for Class 3 severe obesity due to excess calories without serious comorbidity with body mass index (BMI) of 40.0 to 44.9 in adult (HCC) * TSH(Performed 09/21/2018) Performed for Vern's disease * US SOFT TISSUE HEAD NECK(Performed 09/21/2018) Performed for Vern's disease * CBC W AUTO DIFFERENTIAL(Performed 08/12/2018) Performed for Anemia, unspecified type * T4 FREE(Performed 06/25/2018) Performed for Abnormal ultrasound * THYROID PEROXIDASE ANTIBODY(Performed 06/25/2018) Performed for Abnormal ultrasound * TSH(Performed 06/25/2018) Performed for Abnormal ultrasound, Anxiety * IRON + TIBC + FERRITIN(Performed 06/25/2018) Performed for Iron deficiency anemia, unspecified iron deficiency anemia type * IMAGING/RADIOLOGY/XRAY RESULTS ORDER(Performed 06/18/2018) * IMAGING/RADIOLOGY/XRAY RESULTS ORDER(Performed 06/11/2018) * US BREAST RIGHT LTD(Performed 05/07/2018) Performed for Swelling * MAMMO BILAT DIAGNOSTIC(Performed 05/07/2018) Performed for Lump or mass in breast * LAB RESULTS ORDER(Performed 03/19/2018) * VITAMIN D 25-HYDROXY(Performed 10/27/2017) Performed for Vitamin D deficiency * VITAMIN B12 FOLATE PANEL(Performed 10/27/2017) Performed for Vitamin B 12 deficiency * IRON + TRANSFERRIN PANEL(Performed 10/27/2017) Performed for Iron deficiency anemia, unspecified iron deficiency anemia type * CBC W AUTO DIFFERENTIAL(Performed 10/27/2017) Performed for Iron deficiency anemia, unspecified iron deficiency anemia type * IMAGING/RADIOLOGY/XRAY RESULTS ORDER(Performed 04/09/2010) * CBC W AUTO DIFFERENTIAL(Performed 04/06/2010) * GROSS + MICRO EXAM(Performed 04/05/2010) * GROSS + MICRO EXAM(Performed 04/05/2010) * BLOOD GASES CORD ARTERIAL(Performed 04/05/2010) * BLOOD GASES CORD WILBER(Performed 04/05/2010) * XR CHEST 1VW PORTABLE(Performed 04/03/2010) Performed for Placenta Previa, with vaginal bleeding, Other Follow-Up Examination(aka LINE PLACEMENT) * TYPE SCRN XMATCH RBC X4(Performed 04/02/2010) * FIBRINOGEN ACTIVITY(Performed 04/02/2010) * PT PTT PANEL(Performed 04/02/2010) * CBC W AUTO DIFFERENTIAL(Performed 04/02/2010) * FIBRINOGEN ACTIVITY(Performed 04/01/2010) * PT PTT PANEL(Performed 04/01/2010) * MRI PELVIS WO CONTRAST(Performed 04/01/2010) Performed for Placenta previa (HCC) * FIBRINOGEN ACTIVITY(Performed 04/01/2010) * PT PTT PANEL(Performed 04/01/2010) * CBC W AUTO DIFFERENTIAL(Performed 04/01/2010) * SONOGRAM - COMPLETE(Performed 04/01/2010) Performed for Placenta previa (HCC), History of Section x 3 with at least 1 Classical * FIBRINOGEN ACTIVITY(Performed 03/31/2010) * PT PTT PANEL(Performed 03/31/2010) * CBC W AUTO DIFFERENTIAL(Performed 03/31/2010) * T4 FREE(Performed 03/31/2010) * TSH(Performed 03/31/2010) * TYPE SCRN XMATCH RBC X4(Performed 03/30/2010) * PTT(Performed 03/30/2010) * PT-INR(Performed 03/30/2010) * FIBRINOGEN ACTIVITY(Performed 03/30/2010) * DRUG SCREEN URINE TRIAGE PANEL(Performed 03/30/2010) * URINALYSIS REFLEX TO MICROSCOPIC NO CULTURE(Performed 03/30/2010) * COMPREHENSIVE METABOLIC PANEL(Performed 03/30/2010) * CBC W AUTO DIFFERENTIAL(Performed 03/30/2010) * CULTURE STREP B(Performed 03/30/2010) * CHLAMYDIA + GC AMPLIFIED PROBE(Performed 03/30/2010) * CULTURE URINE(Performed 03/30/2010) Results * LAB RESULTS ORDER (02/25/2023) Only the most recent of3 resultswithin the time period is included. 02/25/2023 Narrative 02/25/2023 Ordered by an unspecified provider. Scanned Document LAB - THERAPEUTIC DR UG MONITORING ORDERABLES * EKG 12-LEAD (07/03/2022 6:37 PM CONSTRUCTION SERVICES TECHNICIAN) Only the most recent of2 resultswithin the time period is included. Ventricular Rate 75 BPM [facility] Atrial Rate 75 BPM [facility] P-R Interval 164 ms [facility] QRS Duration ms 86 ms [facility] Q-T Interval ms 380 ms [facility] QTC Calculation (Bezet) 424 ms [facility] Calculated P Traphill 29 degrees [facility] Calculated R [place]raphill 14 degrees [facility] Calculated T Traphill 28 degrees [facility] Interpretation EKG Normal sinus rhythm Normal ECG No previous ECGs available Confirmed by SAÚL HENDERSON MD ([id number]) on 07/05/2022 3:15:08 PM [facility] 07/03/2022 6:37 PM CONSTRUCTION SERVICES TECHNICIAN 07/05/2022 3:15 PM CONSTRUCTION SERVICES TECHNICIAN Chastity Almita Deng PA-C ECG ORDERABLES [facility] * XR CHEST PA AND LATERAL (07/03/2022 4:21 PM CONSTRUCTION SERVICES TECHNICIAN) Only the most recent of2 resultswithin the time period is included. Anatomical Region Laterality Modality Chest Radiographic Chanda ging 07/03/2022 4:30 PM CONSTRUCTION SERVICES TECHNICIAN Impressions 07/03/2022 4:30 PM CONSTRUCTION SERVICES TECHNICIAN IMPRESSION: No acute cardiopulmonary findings. > Interpreting Provider: Tram Rodríguez MD on 07/03/2022 4:30 PM Narrative 07/03/2022 4:30 PM CONSTRUCTION SERVICES TECHNICIAN PROCEDURE(s): XR CHEST 2VW; DATE AND TIME OF EXAM(s): 07/03/2022 4:22 PM; LOCATION: [facility] INDICATION(s): R07.89: Other chest pain. COMPARISON(s): None available. FINDINGS: The cardiomediastinal silhouette is normal. The pulmonary vasculature is unremarkable. The lungs are clear. There is no pleural effusion. There is no pneumothorax. The osseous structures are grossly unremarkable. Procedure Note Tram Rodríguez MD - 07/03/2022 PROCEDURE(s): XR CHEST 2VW; DATE AND TIME OF EXAM(s): 07/03/2022 4:22PM; LOCATION: [facility] INDICATION(s): R07.89: Other chest pain. COMPARISON(s): None available. FINDINGS: The cardiomediastinal silhouette is normal. The pulmonary vasculature is unremarkable. The lungs are clear. There is no pleural effusion. There is no pneumothorax. The osseous structures are grossly unremarkable. IMPRESSION: No acute cardiopulmonary findings. > Interpreting Provider: Tram Rodríguez MD on 07/03/2022 4:30 PM Radha Lara TEACHER TUTOR-CINDER CRANE OPERATOR DIAGNOSTIC IMAGIN G ORDERABLES * CARDIAC RHYTHM STRIP ORDER (06/05/2022 12:47 PM CONSTRUCTION SERVICES TECHNICIAN) Narrative 06/05/2022 12:47 PM CONSTRUCTION SERVICES TECHNICIAN Ordered by an unspecified provider. Scanned Document CARDIAC SERVICES ORD ERABLES * GROSS + MICRO EXAM (ILL) (06/04/2022 11:12 AM CONSTRUCTION SERVICES TECHNICIAN) Case Report Surgical Pathology Report ? Case: [id number] ? Authorizing Provider: ??Irma Elizabeth MD ??Collected: ? 06/04/2022 11:12 AM ? Ordering Location: ? [facility] ?Received: ?06/05/2022 12:27 PM ? Pathologist: ? Jack Hernández MD ? Specimen: ?Antrum Biopsy, Antrum biopsy R/O H Pylori ? 06/06/2022 9:11 AM CONSTRUCTION SERVICES TECHNICIAN [facility] Final Diagnosis Gastric biopsies, antrum: Mild chronic gastritis, H&E sections negative for Helicobacter (see comment). Comment: Helicobacter pylori stain is pending results will follow in an addendum. 06/06/2022 9:11 AM [facility] Microscopic Description and Comment Microscopic examination is performed and substantiates the above diagnosis. 06/06/2022 9:11 AM [facility] Gross Description The requisition and specimen(s) are identified with the patient's name (Jazmyn San), MRN, and . Received in formalin, specimen antrum biopsy R/O H pylori , are 2 malhotra-pink tissues, 0.2 x 0.2 x 0.2 cm and 0.4 x 0.3 x 0.3 cm. The specimen is submitted in toto in cassette A1. AW 06/06/2022 9:11 AM [facility] Disclaimer The performance characteristics of all immunohistochemical and indirect immunofluorescence stains (if any) cited in this report were determined by the Histopathology Laboratory of [facility]. Some of these tests were developed by our own laboratory and have not been cleared or approved by the US Food and Drug Administration. The FDA does not require this test to go through premarket FDA review. These tests are used for clinical purposes. They should not be regarded as investigational or for research. This laboratory is certified under the Clinical Laboratory Improvement Amendments (CLIA) as qualified to perform high complexity clinical laboratory testing. H&E slides and special stains prepared at [facility], [place]. [address] (CLIA# [id number]) unless otherwise specified. This case was interpreted by the [facility] of [facility]. When applicable, select reference laboratory testing is performed at the [facility], [address] [place] [id number]. 06/06/2022 9:11 AM [facility] Embedded Images 06/06/2022 9:11 AM [facility] Pathology/Cytology GASTRIC ANTRAL BIOPSY SPECIMEN / Unknown 06/04/2022 11:12 AM CONSTRUCTION SERVICES TECHNICIAN 06/05/2022 12:27 PM CONSTRUCTION SERVICES TECHNICIAN Comment:Pre-op diagnosis: Gastroesophageal reflux disease, unspecified whether esophagitis present [K21.9] Status post bariatric surgery [Z98.84] Irma Elizabeth MD LAB - PATHOLOGY/ CYTOLOGY ORDERABLES [facility] [address] * CT LUMBAR SPINE WO CONTRAST (04/20/2022 3:02 PM CDT) Anatomical Region Laterality Modality Spine Computed Tomogra phy 04/20/2022 3:01 PM CDT Impressions 04/20/2022 9:25 PM CDT IMPRESSION: 1.No evidence of acute fracture in the lumbar spine. 2.Diffuse disc bulge at L3-L4, L4-L5 and L5-S1, without central canal or neuroforaminal stenosis. Report dictated by Chas Vega MD (global supply chain vice president) I, Syed Cassidy MD have personally reviewed and interpreted this examination/study. > Interpreting Provider: Syed Cassidy MD on 04/20/2022 9:25 PM Narrative 04/20/2022 9:[address] LUMBAR SPINE WO CONTRAST DATE: 04/20/2022 3:02 PM EXAMINATION: Computed tomography (CT) of the lumbar spine without contrast HISTORY: M54.41: Acute right-sided low back pain with right-sided sciatica TECHNIQUE: CT of the lumbar spine was performed without contrast according to standard protocol. COMPARISON: No prior study is available for comparison at the time of this dictation. FINDINGS: The alignment is normal. Vertebral bodies are normal in height without evidence of acute fracture. No central canal stenosis is seen. The facets appear normal. No neural foraminal stenosis is seen. No soft tissue abnormality is identified. L1-L2: No disc bulge. No central canal stenosis. Facets are normal. No neuroforaminal stenosis. L2-L3: No disc bulge. No central canal stenosis. Facets are normal. No neuroforaminal stenosis. L3-L4: Mild diffuse disc bulge. No central canal stenosis. Facets are normal. No neural foraminal stenosis. L4-L5: Mild diffuse disc bulge. No central canal stenosis. Facets are normal. No neural foraminal stenosis. L5-S1: Diffuse disc bulge. No central canal stenosis. Facets are normal. No neural foraminal stenosis. Procedure Note Syed Cassidy MD - 04/20/2022 CT LUMBAR SPINE WO CONTRAST DATE: 04/20/2022 3:02 PM EXAMINATION: Computed tomography (CT) of the lumbar spine withoutcontrast HISTORY: M54.41: Acute right-sided low back pain with right-sidedsciatica TECHNIQUE: CT of the lumbar spine was performed without contrastaccording to standard protocol. COMPARISON: No prior study is available for comparison at the time ofthis dictation. FINDINGS: The alignment is normal. Vertebral bodies are normal in height without evidence of acute fracture. No central canal stenosis is seen. Thefacets appear normal. No neural foraminal stenosis is seen. No soft tissue abnormality is identified. L1-L2: No disc bulge. No central canal stenosis. Facets are normal. No neuroforaminal stenosis. L2-L3: No disc bulge. No central canal stenosis. Facets are normal. No neuroforaminal stenosis. L3-L4: Mild diffuse disc bulge. No central canal stenosis. Facets are normal. No neural foraminal stenosis. L4-L5: Mild diffuse disc bulge. No central canal stenosis. Facets are normal. No neural foraminal stenosis. L5-S1: Diffuse disc bulge. No central canal stenosis. Facets are normal.No neural foraminal stenosis. IMPRESSION: 1.No evidence of acute fracture in the lumbar spine. 2.Diffuse disc bulge at L3-L4, L4-L5 and L5-S1, without central canal or neuroforaminal stenosis. Report dictated by Chas Vega MD (global supply chain vice president) I, Syde Cassidy MD have personally reviewed and interpreted this examination/study. > Interpreting Provider: Syed Cassidy MD on 04/20/2022 9:25 PM Sanjuanita Mix TEACHER TUTOR-CINDER CRANE OPERATOR CT ORDERABLES * (ABNORMAL) URINALYSIS W/MICROSCOPIC NO CULTURE (04/20/2022 1:22 PM CDT) Color UA Yellow Straw, Yellow 04/20/2022 1:33 PM CDT [facility] Clarity UA Slt Cloudy(A) Clear 04/20/2022 1:33 PM CDT [facility] Specific [place] UA 1.021 1.005 - 1.030 04/20/2022 1:33 PM [facility] pH UA 5.0 5.0 - 8.0 pH 04/20/2022 1:33 PM [facility] Protein UA Negative Negative 04/20/2022 1:33 PM [facility] Glucose UA Negative Negative 04/20/2022 1:33 PM [facility] Ketone UA Negative Negative 04/20/2022 1:33 PM [facility] Bilirubin UA Negative Negative 04/20/2022 1:33 PM [facility] Blood UA 2+(A) Negative 04/20/2022 1:33 PM [facility] Nitrite UA Negative Negative 04/20/2022 1:33 PM [facility] Leukocyte Esterase Negative Negative 04/20/2022 1:33 PM [facility] Urobilinogen UA Negative Negative mg/dL 04/20/2022 1:33 PM [facility] RBC UA 3-5 None Seen, 0-2, 3-5 /HPF 04/20/2022 1:33 PM [facility] WBC UA 0-5 None Seen, 0-5 /HPF 04/20/2022 1:33 PM [facility] Bacteria UA Trace(A) None /HPF 04/20/2022 1:33 PM [facility] Squamous Epithelial Cells UA 0-2 None Seen, 0-2, 3-5 /HPF 04/20/2022 1:33 PM [facility] Mucus UA 1+ /LPF 04/20/2022 1:33 PM [facility] Hyaline Casts UA 0-2 None Seen, 0-2 /LPF 04/20/2022 1:33 PM [facility] Urine URINE SPECIMEN OBTAINED BY CLEAN CATCH PROCEDURE / Unknown Collection / Unknown 04/20/2022 1:22 PM CDT 04/20/2022 1:25 PM [facility] - 04/20/2022 1:33 PM CDT Sanjuanita Mix TEACHER TUTOR-CINDER CRANE OPERATOR LAB - URINALYS IS ORDERABLES [facility] [address] [place] [id number] [phone] * CBC W AUTO DIFFERENTIAL (04/20/2022 1:[address] [facility]) Only the most recent of9 resultswithin the time period is included. WBC 7.3 3.5 - 10.5 10? 3 /uL 04/20/2022 1:29 PM [facility] RBC 4.68 3.80 - 5.20 10? 6 /uL 04/20/2022 1:29 PM [facility] Hemoglobin 13.9 12.0 - 15.6 g/dL 04/20/2022 1:29 PM [facility] Hematocrit 41.7 35.0 - 45.0 % 04/20/2022 1:29 PM [facility] MCV 89.1 80.7 - 98.3 fL 04/20/2022 1:29 PM [facility] MCH 29.7 26.7 - 34.0 pg 04/20/2022 1:29 PM [facility] MCHC 33.3 30.8 - 35.9 g/dL 04/20/2022 1:29 PM [facility] Platelet Count 317 150 - 400 10? 3 /uL 04/20/2022 1:29 PM [facility] RDW-SD 42.5 36.0 - 50.0 fL 04/20/2022 1:29 PM [facility] RDW-CV 13.0 11.2 - 14.8 % 04/20/2022 1:29 PM [facility] MPV 9.4 9.4 - 12.9 fL 04/20/2022 1:29 PM [facility] nRBC Absolute 0.00 0 10? 3 /uL 04/20/2022 1:29 PM [facility] nRBC Auto 0.0 0 /100 WBC 04/20/2022 1:29 PM [facility] Neutrophils % 69.0 35.0 - 70.0 % 04/20/2022 1:29 PM [facility] Lymphocytes % 22.5 20.0 - 43.0 % 04/20/2022 1:29 PM [facility] Monocytes % 6.2 5.0 - 13.0 % 04/20/2022 1:29 PM CDT [facility] Eosinophils % 1.5 0.0 - 6.0 % 04/20/2022 1:29 PM CDT [facility] Basophil % 0.5 0.0 - 2.0 % 04/20/2022 1:29 PM CDT [facility] Neutrophils Absolute 5.04 1.60 - 7.00 10? 3 /uL 04/20/2022 1:29 PM CDT [facility] Lymphocyte Absolute 1.64 1.10 - 3.90 10? 3 /uL 04/20/2022 1:29 PM CDT [facility] Monocytes Absolute 0.45 0.26 - 1.07 10? 3 /uL 04/20/2022 1:29 PM T [facility] Eosinophils Absolute 0.11 0.00 - 0.47 10? 3 /uL 04/20/2022 1:29 PM CDT [facility] Basophils Absolute 0.04 0.00 - 0.08 10? 3 /uL 04/20/2022 1:29 PM CDT [facility] Immature Granulocytes % 0.3 0.0 - 1.0 % 04/20/2022 1:29 PM CDT [facility] Immature Granulocytes Absolute 0.02 04/20/2022 1:29 PM [facility] Blood BLOOD SPECIMEN / Unknown Venipuncture / Unknown 04/20/2022 1:22 PM CDT 04/20/2022 1:26 PM CDT Sanjuanita Mix TEACHER TUTOR-CINDER CRANE OPERATOR LAB - HEMATOLO GY ORDERABLES [facility] [address] [place] [address], [facility] [phone] * (ABNORMAL) COMPREHENSIVE METABOLIC PANEL (04/20/2022 1:22 PM CDT) Only the most recent of3 resultswithin the time period is included. BUN 13 7 - 26 mg/dL 04/20/2022 1:55 PM CDT [facility] Creatinine 0.74 0.56 - 0.96 mg/dL 04/20/2022 1:55 PM [facility] Sodium 143 136 - 145 mmol/L 04/20/2022 1:55 PM [facility] Potassium 3.7 3.5 - 4.5 mmol/L 04/20/2022 1:55 PM [facility] Chloride 107 98 - 107 mmol/L 04/20/2022 1:55 PM [facility] CO2 28 22 - 29 mmol/L 04/20/2022 1:55 PM [facility] Glucose 128(H) 70 - 115 mg/dL 04/20/2022 1:55 PM [facility] Calcium 9.4 8.4 - 10.2 mg/dL 04/20/2022 1:55 PM [facility] Protein Total 7.5 6.0 - 8.3 g/dL 04/20/2022 1:55 PM [facility] Albumin 3.9 3.4 - 5.0 g/dL 04/20/2022 1:55 PM [facility] Bilirubin Total 0.3 0.2 - 1.2 mg/dL 04/20/2022 1:55 PM [facility] Alkaline Phosphatase 72 40 - 150 U/L 04/20/2022 1:55 PM [facility] ALT 32 5 - 55 U/L 04/20/2022 1:55 PM [facility] AST 24 5 - 34 U/L 04/20/2022 1:55 PM [facility] Anion Gap 12 8 - 18 04/20/2022 1:55 PM [facility] BUN/Creatinine Ratio 18 7 - 23 04/20/2022 1:55 PM [facility] Osmolality Calculated 298 270 - 300 mOsm/kg 04/20/2022 1:55 PM [facility] Albumin/Globulin Ratio 1.1 1.1 - 2.3 04/20/2022 1:55 PM [facility] eGFR by CKD-EPI >90 >=90 mL/min/1.7 3 m2 04/20/2022 1:55 PM [facility] Blood BLOOD SPECIMEN / Unknown Venipuncture / Unknown 04/20/2022 1:22 PM CDT 04/20/2022 1:26 PM CDT Sanjuanita Mix TEACHER TUTOR-CINDER CRANE OPERATOR LAB - CHEMISTR Y ORDERABLES Performing Organization Address [facility]/ZIP Co de Phone Number [facility] [address] [place] [address], [place] [phone] * HCG BETA BLOOD QUANTITATIVE (04/20/2022 1:22 PM CDT) [facility] Beta-hCG Total Quantitative <3 mIU/mL 04/20/2022 2:01 PM CDT [facility] Comment: This assay is cleared for use in the early detection of only. It is not approved for any other uses such as tumor marker screening, tumor marker monitoring, etc. and should not be used for any other purposes. HCG Numeric Result Interpretation: ? Non- Females: ? < 5 mIU/mL ? Post-Menopausal Females: ??< 7 mIU/mL ? Blood BLOOD SPECIMEN / Unknown Venipuncture / Unknown 04/20/2022 1:22 PM CDT 04/20/2022 1:26 PM CDT Sanjuanita Mix APRN-CINDER CRANE OPERATOR LAB - CHEMISTR Y ORDERABLES Performing Organization Address [facility] Co de Phone Number [address] [address], [place] [phone] * T4 FREE ICMA (01/31/2020 2:04 PM CDT) [facility] T4 Free 0.94 ng/dL [facility] ACCOUNT BILL Comment: Reference Range: >=20y: 0.82 - 1.77 Blood BLOOD SPECIMEN / Unknown 01/31/2020 2:04 PM CDT 01/31/2020 Narrative Resulting Agency Comment Lab Testing performed at: [employer] [address] [place] [address] ??[facility] [phone] Addie Jennings MD LAB - CHEMISTRY OR DERABLES [facility] ACCOUNT BILL [address] [place] [address] * TSH ICMA (01/31/2020 2:04 PM CDT) TSH ICMA 2.4 uU/mL [facility] ACCOUNT BILL Comment: Reference Range: Non- Adult 0.450-4.500 First Trimester 0.100-4.000 Second Trimester 0.200-4.000 Third Trimester 0.300-4.500 Blood BLOOD SPECIMEN / Unknown 01/31/2020 2:04 PM CDT 01/31/2020 Narrative Resulting Agency Comment Lab Testing performed at: [employer] [address] [place] [address] ??[facility] [phone] Addie Jennings MD LAB - CHEMISTRY OR DERABLES Performing Organization Address City/[facility] Co de Phone Number [facility] ACCOUNT BILL [address] [place] [address] * TSH (01/03/2019 1:40 PM CDT) Only the most recent of4 resultswithin the time period is included. TSH 1.7600 0.358 - 3.74 uIU/mL [facility] INSURANCE BILL Blood BLOOD SPECIMEN / Unknown 01/03/2019 1:40 PM CDT 01/03/2019 Narrative Resulting Agency Comment Lab Testing performed at: [address] ??[facility] [phone] Addie Jennings MD LAB - CHEMISTRY OR DERABLES Performing Organization Address City/[facility] Co de Phone Number [facility] INSURANCE BILL [address] [place] [address] * VITAMIN D 25-HYDROXY (12/28/2018 7:38 AM CDT) Only the most recent of2 resultswithin the time period is included. Vitamin D, 25 Hydroxy 36.3 30 - 100 ng/mL [facility] ACCOUNT BILL Comment: Vitamin D Status: ?Deficiency ? <20 ? ng/mL ?Insufficiency ?? 20-30 ??ng/mL ?Sufficiency ? 30-100 ng/mL ?Toxicity ? >100 ?ng/mL FASTING Blood BLOOD SPECIMEN / Unknown 12/28/2018 7:38 AM CDT 12/28/2018 Narrative Resulting Agency Comment Lab Testing performed at: [address] ??[facility] [phone] Lottie Verduzco TEACHER TUTOR-CINDER CRANE OPERATOR LAB - CHEMI STRY ORDERABLES Performing Organization Address [facility] de Phone Number [facility] ACCOUNT BILL [address] [place] [address] * VITAMIN B12 FOLATE PANEL (12/28/2018 7:38 AM CDT) Only the most recent of2 resultswithin the time period is included. Vitamin B12 344 213 - 816 pg/mL [facility] ACCOUNT BILL Folate 11.0 7.0 - 31.4 ng/mL [facility] ACCOUNT BILL Comment:FASTING Blood BLOOD SPECIMEN / Unknown 12/28/2018 7:38 AM CDT 12/28/2018 Narrative Resulting Agency Comment Lab Testing performed at: [address] ??[facility] [phone] Lottie Verduzco TEACHER TUTOR-CINDER CRANE OPERATOR LAB - CHEMI STRY ORDERABLES Performing Organization Address [facility] de Phone Number [facility] ACCOUNT BILL [address] [place] [address] * (ABNORMAL) LIPID PROFILE (12/28/2018 7:38 AM [...] Resulting Agency Comment Lab Testing performed at: [address] ??[facility] [phone] Lottie Verduzco TEACHER TUTOR-CINDER CRANE OPERATOR LAB - CHEMI STRY ORDERABLES [facility] ACCOUNT BILL [address] [place] [address] * US SOFT TISSUE HEAD NECK (09/21/2018) Anatomical Region Laterality Modality Head Ultrasound 09/21/2018 Impressions 09/21/2018 THYROID ULTRASOUND ?? DATE: 09/21/2018 ?? RETAIL BEAUTY SPECIALIST: Dr. Jennings ?? 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 HISTORY: ??33-year-old lady with history of Graves disease in the past, treated, Vern's disease with goiter ?? PROCEDURE: ?? Using physician performed real time ultrasonography limited to the thyroid gland, longitudinal and transverse images were obtained of both lobes and isthmus. ?? COMPARISON STUDY: Jun 2018 ?? FINDINGS: ?? The right thyroid lobe measures 3.98x 1.34x 1.78 cm. The left thyroid lobe measures 4.65x 1.65x 1.46 cm. Isthmus measures 0.58 cm Overall the thyroid gland is heterogenous with a typical Vern's picture. Parenchymal blood flow minimal to absent ?? No discrete nodules seen ?? IMPRESSION: Vern's thyroiditis ? Recommendations: ?? No further thyroid ultrasound needed TSH every 3 months because of high TPO titer ? Addie Jennings MD ? Addie Jennings MD US ORDERABLES * (ABNORMAL) THYROID PEROXIDASE ANTIBODY (06/25/2018 9:13 AM CONSTRUCTION SERVICES TECHNICIAN) Thyroid Peroxidase TPO Antibody >600(H) 0 - 34 IU/mL [facility] ACCOUNT BILL Blood BLOOD SPECIMEN / Unknown 06/25/2018 9:13 AM CONSTRUCTION SERVICES TECHNICIAN 06/25/2018 Narrative Resulting Agency Comment [facility] [address] ??[facility] [phone] Lottie Verduzco TEACHER TUTOR-CINDER CRANE OPERATOR LAB - CHEMI STRY ORDERABLES [facility] ACCOUNT BILL [address] [place] [address] * T4 FREE (06/25/2018 9:13 AM CONSTRUCTION SERVICES TECHNICIAN) Only the most recent of2 resultswithin the time period is included. T4 Free 1.01 0.65 - 1.34 ng/dL [facility] ACCOUNT BILL Blood BLOOD SPECIMEN / Unknown 06/25/2018 9:13 AM CONSTRUCTION SERVICES TECHNICIAN 06/25/2018 Narrative Resulting Agency Comment [facility] [address] [facility] ??[facility] [phone] Lottie Verduzco APRN-CINDER CRANE OPERATOR LAB - CHEMI STRY ORDERABLES Performing Organization Address City/[facility]/ZIP Co de Phone Number [facility] ACCOUNT BILL [address] [place] [address] * (ABNORMAL) IRON + TIBC + FERRITIN (06/25/2018 9:12 AM CONSTRUCTION SERVICES TECHNICIAN) TIBC 361 250 - 450 ug/dL [facility] ACCOUNT BILL UIBC 314 131 - 425 ug/dL [facility] ACCOUNT BILL Iron 47 27 - 159 ug/dL [facility] ACCOUNT BILL Iron Saturation 13(L) 15 - 55 % [facility] ACCOUNT BILL Ferritin 9(L) 15 - 150 ng/mL [facility] ACCOUNT BILL Blood BLOOD SPECIMEN / Unknown 06/25/2018 9:12 AM CONSTRUCTION SERVICES TECHNICIAN 06/25/2018 Narrative Resulting Agency Comment [facility] [address] ??[facility] [phone] Lottie Verduzco TEACHER TUTOR-CINDER CRANE OPERATOR LAB - CHEMI STRY ORDERABLES [facility] ACCOUNT BILL [address] [address] * IMAGING RADIOLOGY XRAY RESULTS ORDER (06/18/2018) Only the most recent of3 resultswithin the time period is included. Anatomical Region Laterality Modality Other Scanned Document IMAGING * US BREAST RIGHT LTD (05/07/2018 10:11 AM CDT) Anatomical Region Laterality Modality Breast Right Ultrasound 05/07/2018 9:36 AM CDT Addenda Addendum by Mellisa Drake MD on 06/04/2018 11:19 AM CONSTRUCTION SERVICES TECHNICIAN Previous mammograms from [facility] on 04/10/2016 and 03/27/2016 are now available [...] participate in the care of your patient. [facility] utilizes [employer] as a reminder system to notify patients [...] utilized. PRIOR: Previous mammogram was performed at [facility]. This was not available for review at [...] utilized. PRIOR: Previous mammogram was performed at [facility]. This was not available for review at [...] participate in the care of your patient. [facility] utilizes [employer] as a reminder system to notify patients of their next recommended mammogram. Reading Radiologist: Mellisa Drake MD on 05/07/2018 at 10:53 AM Mellisa Drake MD US ORDERABLES * ALIZE DIAG DIRECT DIG IMAGE BILATERAL [id number] (05/07/2018 9:24 AM CDT) Anatomical Region Laterality Modality Breast Bilateral Mammography 05/07/2018 9:36 AM CDT Addenda Addendum by Mellisa Drake MD on 06/04/2018 11:19 AM CONSTRUCTION SERVICES TECHNICIAN Previous mammograms from [facility] on 04/10/2016 and 03/27/2016 are now available [...] participate in the care of your patient. [facility] utilizes [employer] as a reminder system to notify patients [...] utilized. PRIOR: Previous mammogram was performed at [facility]. This was not available for review at [...] utilized. PRIOR: Previous mammogram was performed at [facility]. This was not available for review at [...] participate in the care of your patient. [facility] utilizes [employer] as a reminder system to notify patients of their next recommended mammogram. Reading Radiologist: Mellisa Drake MD on 05/07/2018 at 10:53 AM Mellisa Drake MD MAMMO ORDERABLES * (ABNORMAL) IRON + TRANSFERRIN PANEL (10/27/2017 1:21 PM CDT) Iron 19(L) 50 - 170 ug/dL [facility] ACCOUNT BILL Transferrin 308 250 - 380 mg/dL [facility] ACCOUNT BILL Comment: TIBC CALCULATED MG/DL BLOOD ??385 ?mg/dL ?240-450 SATURATION % BLOOD ([facility]) ? 5 ?% ?20-50 ?L Blood BLOOD SPECIMEN / Unknown 10/27/2017 1:21 PM CDT 10/27/2017 Narrative Resulting Agency Comment [facility] [address] [place] [address] ??[facility] [phone] Maurice Overton MD LAB - CHEMISTRY MEL MARTINES [facility] ACCOUNT BILL [address] [place] [address] * GROSS + MICRO EXAM (04/05/2010 5:00 AM CDT) Only the most recent of2 resultswithin the time period is included. Result CASE NUMBER [id number] Comment: ORDERING PHYSICIAN ??JOHNSON [place] SPECIMEN TYPE ?Placenta 3rd Trimes Date ? 04/05/2010 Physician ?Emeka Doe Gross Description ? The patient is a 24-year-old woman with an intrauterine at 33 weeks/5 days with a complete placenta previa. Operative findings include a baby boy with Apgars of 8 and 8, and weighing 2496 grams. The specimen is received in Formalin labeled with the patient's name, Jazmyn Cisse, and placenta, gross and micro. ??It consists of a ruff discoid placenta with attached membranes and a segment of umbilical cord measuring 13 x 13 cm. ??The placental disc thickness is 3.8 cm. ??The umbilical cord is 13.5 cm in length with a diameter of 1 cm, and has an eccentric insertion 1.5 cm from the nearest disc margin. The external surface of the cord is glistening white malhotra with one hyatt blue varicosity. ??The cord has three vessels. ??The membranes are torn. The shortest length is 1 cm, and the longest length is 15 cm. ??The membranes are hyatt malhotra and translucent, and the attachments are marginal. The surface has a few fibrin plaques. ??The maternal surface shows a few areas of loosely adherent coagula with intact cotyledons. ??Sectioned surfaces are unremarkable. ??After membrane trimming, the placenta weighs approximately 350 grams. Cassettes A and B ?? Bridge Operator Slip sections of the placental disc. Cassette C ?? Bridge Operator Slip sections of umbilical cord and membranes. [facility] Microscopic Exam ? Microscopic examination reveals a three vessel umbilical cord showing no evidence of funisitis or thrombosis. The chorioamniotic membranes show no evidence of inflammation, and meconium is not identified. The chorionic villi are small, mature, and well vascularized with no evidence of villitis or infarction. The decidua basalis and chorionic plate show no pathologic changes. GM/na Diagnosis ? I. ?Placenta, delivery -- ?Mature placenta, 350 grams -- ?Three vessel umbilical cord ?with no pathologic changes -- ?Chorioamniotic membranes with ?no pathologic changes SS/na GM School Aide ? na Pathologist ?Nahomi Parnell MD [place]. ?04/08/2010 1527 <1> CPT code ? 73120 MISCELLANEOUS SAMPLES / Unknown 04/05/2010 5:00 AM CDT 04/05/2010 9:55 AM CDT Historical Provider LAB - PATHOLOGY/C YTOLOGY ORDERABLES * (ABNORMAL) BLOOD GASES CORD ARTERIAL (04/05/2010 3:55 AM CDT) pH Cord Arterial 7.337(H) 7.16 - 7.30 [facility] pCO2 Cord Arterial 52.1 40 - 55 mm Hg [facility] pO2 Cord Arterial 35.8(H) 12 - 20 mm Hg [facility] HCO3 Cord Arterial 27.3 mmol/L [facility] Base Excess Cord Arterial 0.5 -2.0 - 2.0 [facility] CORD BLOOD SPECIMEN / Unknown 04/05/2010 3:55 AM CDT 04/05/2010 3:58 AM CDT Apple Sullivan DO LAB - BLOOD GASES OR DERABLES [facility] [address] [place] [address] * (ABNORMAL) BLOOD GASES CORD VENOUS (04/05/2010 3:53 AM CDT) pH Cord Venous 7.289 7.18 - 7.33 [facility] pCO2 Cord Venous 62.0(H) 43 - 55 mm Hg [facility] pO2 Cord Venous 26.5 22 - 33 mm Hg [facility] Base Excess Cord Venous 0.8 -2.0 - 2.0 [facility] HCO3 Cord Venous 29.1 mmol/L [facility] CORD BLOOD SPECIMEN / Unknown 04/05/2010 3:53 AM CDT 04/05/2010 3:55 AM CDT Apple Sullivan DO LAB - BLOOD GASES OR DERABLES Performing Organization Address City/State/[facility] Co de Phone Number [facility] [address] [place] [address] * XR CHEST 1VW PORTABLE (04/03/2010 8:40 PM CDT) Anatomical Region Laterality Modality Chest Radio Fluoroscop y 04/04/2010 7:02 AM CDT Impressions 04/04/2010 7:02 AM CDT Central line as noted. No pneumothorax. Narrative 04/04/2010 7:02 AM CDT Chest x-ray single view. HISTORY: Central line placement. A single view of the chest shows a right IJ line with its tip projected in the superior vena cava. There is no pneumothorax. Heart size is normal. Lungs are clear. Procedure Note Maulik Mccain MD - 04/04/2010 Chest x-ray single view. HISTORY: Central line placement. A single view of the chest shows a right IJ line with its tip projected in the superior vena cava. There is no pneumothorax. Heart size is normal. Lungs are clear. IMPRESSION Central line as noted. No pneumothorax. Giovanny Plummer MD DIAGNOSTIC IMAGING O RDERABLES * TYPE SCRN XMATCH RBC X4 (04/02/2010 5:36 AM CDT) Only the most recent of2 resultswithin the time period is included. ABO Rh O Pos SEE BELOW [facility] Comment: Weak D testing is not performed at [facility] Antibody Screen Neg [facility] Number of Units 4 [facility] Previous History Check Done Historical blood type on record, type verification complete. [facility] BLOOD SPECIMEN / Unknown 04/02/2010 5:36 AM CDT 04/02/2010 5:52 AM CDT Leyla Peres MD LAB - BLOOD BANK O RDERABLES Performing Organization Address [facility] de Phone Number [facility] [address] [place] [phone] * (ABNORMAL) PT PTT PANEL (04/02/2010 5:36 AM CDT) Only the most recent of4 resultswithin the time period is included. PT 9.3(L) 9.4 - 11.4 seconds [facility] INR 0.88 SEE BELOW [facility] Comment: Conventional anticoagulation ?? 2.0-3.0 Intensive anticoagulation ?? 2.5-3.5 PTT 26.0 24.0 - 33.0 seconds [facility] BLOOD SPECIMEN / Unknown 04/02/2010 5:36 AM CDT 04/02/2010 5:50 AM CDT Amari Huston Jr., MD LAB - COA CHEPELATION ORDERABLES Performing Organization Address [facility] de Phone Number [facility] [address] [place] [address] * FIBRINOGEN ACTIVITY (04/02/2010 5:36 AM CDT) Only the most recent of5 resultswithin the time period is included. Fibrinogen 342 150 - 450 mg/dl [facility] BLOOD SPECIMEN / Unknown 04/02/2010 5:36 AM CDT 04/02/2010 5:50 AM CDT Amari Huston Jr., MD LAB - COA CHEPELATION ORDERABLES Performing Organization Address [facility] de Phone Number [facility] [address] [place] [address] * MRI PELVIS NON CONTRAST (04/01/2010 9:30 AM CDT) Anatomical Region Laterality Modality Pelvis Magnetic Resonan ce 04/01/2010 12:1 4 PM CDT Narrative 04/01/2010 1:26 PM CDT MRI pelvis: CLINICAL INFORMATION: Placenta previa and prior history of sections with questionable placenta increta or accreta. TECHNIQUE: Sagittal, coronal and axial single-shot fast-spin echo T2, axial dual-echo FSPGR and axial 2-D FIESTA images were obtained on a [place] strength magnet. There is no prior examination available for comparison. FINDINGS: There is a single intrauterine with the head in the vertex position. There is placenta previa with the placenta covering the entire cervical os. There are areas of questionable abnormal thinning of the myometrium with extension of placenta into the myometrium, see image 13 series 8 and images 17 through 19 series 8. The findings are suggestive are nonspecific but suggestive of possible placenta increta. Visualized structures of the abdomen and pelvis are otherwise unremarkable. There is no free pelvic fluid. DIAGNOSIS: There are findings suggestive of possible placenta increta or accreta. However, the findings are nonspecific. Placenta previa is present. Procedure Note Sanchez Cleaning MD - 04/01/2010 MRI pelvis: CLINICAL INFORMATION: Placenta previa and prior history of sections with questionable placenta increta or accreta. TECHNIQUE: Sagittal, coronal and axial single-shot fast-spin echo T2, axial dual-echo FSPGR and axial 2-D FIESTA images were obtained on a [place] strength magnet. There is no prior examination available for comparison. FINDINGS: There is a single intrauterine with the head in the vertex position. There is placenta previa with the placenta covering the entire cervical os. There are areas of questionable abnormal thinning of the myometrium with extension of placenta into the myometrium, see image 13 series 8 and images 17 through 19 series 8. The findings are suggestive are nonspecific but suggestive of possible placenta increta. Visualized structures of the abdomen and pelvis are otherwise unremarkable. There is no free pelvic fluid. DIAGNOSIS: There are findings suggestive of possible placenta increta or accreta. However, the findings are nonspecific. Placenta previa is present. Evin Cavanaugh MD MR ORDERABLES * SONOGRAM - COMPLETE (04/01/2010) Anatomical Region Laterality Modality Other Buzz Doe MD [facility] ORDERABLES * (ABNORMAL) URINALYSIS ROUTINE AUTO (03/30/2010 3:00 PM CDT) Source Clean Catch [facility] Color UA Yellow [facility] Character UA Clear [facility] Glucose UA NEGATIVE NEGATIVE mg/dl [facility] Bilirubin UA NEGATIVE NEGATIVE [facility] Ketone UA 40(H) NEGATIVE mg/dl [facility] Specific [place] UA >=1.030(H) 1.003 - 1.030 [facility] Blood UA LARGE(H) NEGATIVE [facility] pH UA 5.5 5.0 - 9.0 [facility] Protein UA NEGATIVE NEGATIVE-TR VICKEY mg/dl [facility] Urobilinogen UA 0.2 0.2 - 1.0 Kendrick Units/dl [facility] Nitrite UA NEGATIVE NEGATIVE [facility] Leukocyte UA NEGATIVE NEGATIVE [facility] WBC UA None Seen 0 - 2 HPF [facility] RBC UA 1-3 None Seen HPF [facility] Epithelial Cell UA 1-2 None Seen HPF [facility] URINE SPECIMEN OBTAINED BY CLEAN CATCH PROCEDURE / Unknown 03/30/2010 3:00 PM CDT 03/30/2010 3:28 PM CDT Yoselin Rudd MD LAB - URINALYSIS OR DERABLES Performing Organization Address [facility] Co de Phone Number [facility] [address] [place] [address] * CHLAMYDIA + GC DNA PROBE AMPLIFIED (03/30/2010 3:00 PM CDT) Chlamydia trachomatis Amplified Probe NEGATIVE NEGATIVE [facility] GC Amplified Probe NEGATIVE NEGATIVE [facility] Comment Amplified Probe [facility] Comment: ? Results based on detection/no detection of ribosomal ? RNA by amplified method. PART OF UTERINE CERVIX / Unknown 03/30/2010 3:00 PM CDT 03/30/2010 3:42 PM CDT Yoselin Rudd MD LAB - MICROBIOLOGY ORDERABLES Performing Organization Address [facility] Co de Phone Number [facility] [address] [place] [address] * CULTURE URINE (03/30/2010 3:00 PM CDT) Report [facility] Comment: Final - CULTURE <10,000 colonies/ml Mixed gram positive abram. Org 1 ?<10,000 colonies/ml ?gram positive cocci ?morphologically identical to ?culture done ??03/30/10 ?(Group B beta strep) ? URINE SPECIMEN OBTAINED BY CLEAN CATCH PROCEDURE / Unknown 03/30/2010 3:00 PM CDT 03/30/2010 3:42 PM CDT Yoselin Rudd MD LAB - MICROBIOLOGY ORDERABLES [facility] [address] [place] [address] * CULTURE STREP B (03/30/2010 3:00 PM CDT) Report [facility] Comment: Final - CULTURE BETA HEMOLYTIC STREP GROUP B ?Moderate growth ?Notified Josefa ?Valentine(rbr)03/31/10(dmt) ?If treatment is indicated, the ?organism can be expected to ?be susceptible to ?penicillins, cephalosporins ?and macrolides. ?Bacteremia/serious ?infection may require the ?addition of an ?aminoglycoside ? PART OF UTERINE CERVIX / Unknown 03/30/2010 3:00 PM CDT 03/30/2010 3:42 PM CDT Yoselin Rudd MD LAB - MICROBIOLOGY ORDERABLES [facility] [address] [place] [address] * PTT (03/30/2010 3:00 PM CDT) PTT 26.4 24.0 - 33.0 seconds [facility] BLOOD SPECIMEN / Unknown 03/30/2010 3:00 PM CDT 03/30/2010 5:48 PM CDT Yvonne Pickard MD LAB - COAGULATION OR DERABLES Performing Organization Address [facility] Co de Phone Number [facility] [address] [place] [address] * (ABNORMAL) PT-INR (03/30/2010 3:00 PM CDT) PT 9.3(L) 9.4 - 11.4 seconds [facility] INR 0.88 SEE BELOW [facility] Comment: Conventional anticoagulation ?? 2.0-3.0 Intensive anticoagulation ?? 2.5-3.5 BLOOD SPECIMEN / Unknown 03/30/2010 3:00 PM CDT 03/30/2010 3:35 PM CDT Yoselin Rudd MD LAB - COAGULATION O RDERABLES Performing Organization Address [facility] Co de Phone Number [facility] [address] [place] [address] * DRUG SCREEN TRIAGE PANEL (03/30/2010 3:00 PM CDT) Phencyclidine Screen Urine Negative Negative ng/ml [facility] Benzodiazepines Screen Urine Negative Negative ng/ml [facility] Cocaine Screen Urine Negative Negative ng/ml [facility] Amphetamines Screen Urine Negative Negative ng/ml [facility] Cannabinoids Screen Urine Negative Negative ng/ml [facility] Opiate Screen Urine Negative Negative ng/ml [facility] Barbiturates Screen Urine Negative Negative ng/ml [facility] URINE / Unknown 03/30/2010 3 :00 PM CDT 03/30/2010 3:29 PM CDT Yoselin Rudd MD LAB - URINE RAKE OPERATOR RY ORDERABLES Performing Organization Address [facility] Co de Phone Number [facility] [address] [place] [address] Care Teams Surgical Lead Relationship Specialty Start Date End Date Thang Heck MD [address] [place] [address] [facility] - General 06/10/22 Addie Jennings MD [address] [facility] [address] [place] [phone] [facility] 01/31/20
--- OUTSIDE RECORDS SUMMARY | 2024-07-28 20:05 | XMS_ITS | CONTINUITY OF CARE DOCUMENT ---
Author Name yaima erwin Address Unknown Organization [facility] Address [address] [address] [place] [address] Phone [phone] Care Team Providers Care Geologic Technician Name Role Phone Peter PINK, Daisy Unavailable ANAYA PINK, RAJWINDER Unavailable INSURANCE PROVIDERS Payer name Policy type / Coverage type [place] red green party ID [facility] [id number] Other [id number] HEALTHCARE AND FAMILY SERVICES Medicaid 0 [id number]
--- OUTSIDE RECORDS SUMMARY | 2024-07-28 20:06 | XMS_ITS | Referral Summary ---
Author Organization [facility] Address [address] [place] [address] Care Team Providers Care Fall Internship Name Role Phone Chaparro Harris MD Primary Care Provider [phone] Jeff Umanzor MD Unavailable [phone] Encounters Date Type Department Care Team Description 07/27/2024 2:30 PM RESOURCE DEVELOPMENT DIRECTOR Infusion [address] [place] [address] Other specified intestinal malabsorption (Primary Dx); Iron deficiency anemia secondary to inadequate dietary iron intake 07/26/2024 8:05 AM RESOURCE DEVELOPMENT DIRECTOR Lab [facility] [address] [place] [phone] Arrived 07/25/2024 Telephone [facility] [address] [place] [phone] Blanca Christopher RN Forms Request 07/25/2024 Orders Only [facility] Diabetes Endocrine Care at [address] [place] [phone] 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 [place] [address] Olga Sandoval, ALEXANDER 07/21/2024 Telephone [facility] [address] [facility] [address] [place] [address] Chaparro Harris MD 07/20/2024 3:00 PM RESOURCE DEVELOPMENT DIRECTOR Office Visit [facility] Department of Otolaryngology Head-Neck Division [address] [facility] [place] [id number] Darline Messina PA Geographic tongue (Primary Dx); Other lesions of oral mucosa 07/18/2024 Telephone [facility] [address] [place] [address] Blanca Christopher, ALEXANDER Additional Services Or Orders 07/15/2024 Telephone [facility] [address] [place] [address] Jody Jordan, ALEXANDER 07/14/2024 Telephone [facility] [address] [place] [address] [address] [place] [address] Eneida Sandoval RN 07/14/2024 11:15 AM RESOURCE DEVELOPMENT DIRECTOR Lab [facility] [address] [place] [address] 07/14/2024 10:55 AM RESOURCE DEVELOPMENT DIRECTOR Lab [facility] [address] [place] [address] Fatigue, unspecified type; Iron deficiency; Vitamin D deficiency; B12 deficiency 07/12/2024 Orders Only [facility] [address] [facility] [address] [place] [address] Liana Bishop, ALEXANDER Gastroesophageal reflux disease without esophagitis (Primary Dx); Morbid obesity (HCC); S/P laparoscopic sleeve gastrectomy 07/12/2024 Telephone [facility] ([facility]) [facility] [address] [facility] Advanced Medicine 11th [place] [address] [place] [address] Vanessa Beck MS 07/07/2024 Telephone [facility] [address] [place] [address] Martha Stinson, ALEXANDER 06/15/2024 4:00 PM RESOURCE DEVELOPMENT DIRECTOR Office Visit [facility] Diabetes Endocrine Care at [address] [place] [address] Ramiro Pinedo, Vern's disease 06/09/2024 9:45 AM RESOURCE DEVELOPMENT DIRECTOR Telemedicine [facility] [address] [address] Chaparro Harris MD AME (generalized anxiety disorder) (Primary Dx) 06/08/2024 4:31 PM RESOURCE DEVELOPMENT DIRECTOR - 06/08/2024 11:59 PM RESOURCE DEVELOPMENT DIRECTOR Hospital Encounter [facility] Imaging and Radiology [address] [place] [phone] Screening mammogram, encounter for Discharge Disposition: Discharge to home or self care 05/30/2024 Telephone [facility] [address] [place] [address] Jody Jordan, ALEXANDER 05/17/2024 Orders Only [facility] Sleep Medicine at [address] [place] [address] Thom Doyle MD Pseudotumor cerebri (Primary Dx) 05/17/2024 Orders Only [facility] Sleep Medicine at [address] [place] [address] Thom Doyle MD 05/10/2024 1:15 PM RESOURCE DEVELOPMENT DIRECTOR Office Visit [facility] [place] [place] [facility] [address] [place] [address] [address] [place] [address] Thom Doyle MD Chronic migraine without aura without status migrainosus, not intractable (Primary Dx) 05/05/2024 Telephone [facility] [address] [phone] Chaparro Harris MD Medication Problem from Last 3 Months Allergies Active Allergy Reactions Criticality Noted Date Comments Nsaids (Non-Steroidal Anti-Inflammatory Drug) Other (See comments) Low Avoids due to weight loss surgery Medications LORazepam (ATIVAN) 1 mg tablet TAKE 1 TABLET(1 MG) BY MOUTH TWICE DAILY FOR ANXIETY 60 tablet 05/25/20 24 Active nystatin 100,000 unit/mL suspension Take 5 mL (500,000 Units total) by mouth 4 (four) times a day Swish in mouth and spit out. 280 mL 06/20/20 24 025 Active omeprazole (PriLOSEC) 20 mg capsule Take 1 capsule (20 mg total) by mouth daily as needed Active cyanocobalamin (Vitamin B-12) 1,000 mcg/mL injection Inject 1 mL (1,000 mcg total) into the muscle as instructed every 30 (thirty) days 1 mL 07/15/19 026 Active syringe-needle ,safety,disp unt 1 mL 25 gauge x 5/8 syringe Use monthly to draw and inject B12 1 each 07/15/19 25 Active fluconazole (DIFLUCAN) 150 mg tablet Take 1 tablet (150 mg total) by mouth once a week for 2 doses Take one tab now. Repeat in 7 days if symptoms persist. 2 tablet 06/07/20 24 024 Discontinued sertraline (ZOLOFT) 50 mg tablet Take 1 tablet (50 mg total) by mouth daily 90 tablet 4 06/09/20 24 025 Discontinued fluconazole (DIFLUCAN) 150 mg tablet TAKE 1 TABLET(150 MG) BY MOUTH 1 TIME A WEEK NOW FOR 2 DOSES. REPEAT IN 7 DAYS IF SYMPTOMS PERSIST 2 tablet 07/02/20 24 025 Discontinued fluconazole (DIFLUCAN) 150 mg tablet Take 1 tablet (150 mg total) by mouth once a week for 2 doses Take one tab now. Repeat in 7 days if symptoms persist. 2 tablet 07/12/19 25 025 dexAMETHasone oral liquid 0.5 mg/5 mL Take 20 mL (2 mg total) by mouth 3 (three) times a day for 10 days Swish and spit 600 mL 07/14/19 25 025 Active Problems Problem Noted Date Diagnosed Date Rectal bleeding 03/15/2024 Rectal pain 03/15/2024 Lipoma of left upper extremity 02/24/2024 Assessment & Plan (02/29/2024 9:06 AM CDT): Likely lipoma based on ultrasound imaging. She was reassured, especially given the 4 year time line. However this is very taxing on her, she is losing sleep over concerns for a malicious etiology. We discussed excision, along with the fact that this may not take care of her paresthesias should this be a small lipoma only. She is understanding and only wishes to know the pathology of the lesion so she can not worry about it any longer. Will set up for excision. Irritable bowel syndrome wit h both constipation and diarrhea 02/04/2024 Elevated liver enzymes 02/04/2024 Splenomegaly 12/15/2023 Assessment & Plan (12/17/2023 10:02 AM CDT): Unclear etiology; patient has fatigue times 1 month, nausea, and alternating diarrhea and constipation May be secondary to EBV or CMV reactivation; will recheck spleen size and approximately 4 weeks Would recommend avoiding high impact activities or contact sports Breasts as tolerated; no evidence of iron deficiency, encourage use of regular multivitamins to ensure appropriate vitamin supplementation Assessment & Plan (12/15/2023 11:22 PM CDT): - presence of splenomegaly concerning for possible infection/reactivation of EBV or CMV - given recent travel to [place] w nausea/diarrhea, 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 - avoid strenuous activities/heavy lifting for at least the next 4-6 weeks - patient is very anxious regarding prognosis, discussed there is very low suspicion for malignancy and advised on waiting for additional testing until results from today's visit are available, recommend follow-up with Dr. Harris in about a week Hepatic steatosis 12/15/2023 Assessment & Plan (12/15/2023 11:15 PM CDT): - incidental finding on CT - associated w CARTER - recommend lifestyle modifications Transaminitis 12/15/2023 Assessment & Plan (12/15/2023 11:13 PM CDT): - new finding, mild - repeat hepatic panel - possibly associated with CARTER, viral or parasitic infection - consider checking hepatitis panel Class 3 severe obesity witho ut serious comorbidity with body mass index (BMI) of 45.0 to 49.9 in adult 12/15/2023 Encounter for follow-up 12/05/2022 Assessment & Plan (12/05/2022 12:52 PM CDT): Patient presents for ER follow-up She was seen on December 01 for cellulitis of her left lower extremity She was started on Keflex and Bactrim Patient states that the cellulitis is improving States there is decreased redness, warmth, pain Continue antibiotics as prescribed Follow up as needed Chronic nausea 10/02/2022 Assessment & Plan (12/17/2023 10:02 AM CDT): Stable not well controlled, no episodes of vomiting; does have regular nausea Continue ondansetron and Prilosec for symptom relief Subcutaneous mass of right foot 05/23/2022 Lumbar back pain 04/30/2022 Assessment & Plan (09/15/2022 5:07 PM CDT): Stable, not well controlled,continues to have pain which limits activities such as standing CT of lumbar spine demonstrated mild disc protrusion, no spinal canal stenosis PE demonstrates tenderness along paraspinal muscles; likely not related to spinal or nerve root compression; may be more related paraspinal muscle strain Would recommend continued exercises, work on weight loss Assessment & Plan (08/04/2022 4:53 PM RESOURCE DEVELOPMENT DIRECTOR): Not well controlled, continues to have significant back pain, limited recommendations from physical therapy; Start methocarbamol 500 mg p.r.n. for lumbar Assessment & Plan (04/30/2022 3:23 PM CDT): Continues to have back pain, noted to have thoracolumbar spondylosisl Noted to have T7 hemangioma; above where patients notes pain Continue with topical therapies; patient has limited relief with tylenol, cannot take NSAIDs due to gastric sleeve. 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 Does not appear to be active at the present time, likely chronic stable state. Stable Justice measurements and clinical findings -- instructed her that findings appear stable and she is released from our care and instructed to follow up for comprehensive eye examinations. She is to return if she has any worsening orbital symptoms including worsening orbital pain, diplopia, or periocular swelling. Assessment & Plan (03/02/2022 9:17 PM CDT): Clinical activity score remains 1-2 (spontaneous retro-orbital pain and mild conjunctival injection). Does not appear to be active at the present time, likely chronic stable state. Mild worsening in Justice measurements -- plan for repeat evaluation to assess in 6 months. If stable, we will consider eyelid surgical correction/rehabilitation. Assessment & Plan (11/05/2021 7:49 AM CDT): Clinical activity score of 1-2 (spontaneous retro-orbital pain and mild conjunctival injection). Does not appear to be active at the present time, likely chronic stable state given history of diagnosis at age 13. We have elected to observe and her have return in 3-4 months to reassess measurements. Retraction of both lower eyelids 11/05/2021 Assessment & Plan (03/02/2022 9:19 PM CDT): Epiphora likely from lower eyelid retraction. Discussed risks and benefits of lower eyelid retraction repair. Risks, benefits and alternatives were discussed. Risks included but were not limited to pain, infection, bleeding, scarring, eyelid asymmetry, need for additional procedures, and anesthetic morbidity. Following this discussion, we have elected to defer until next visit to ensure stable clinical measurements and no active orbital inflammation from ARVIND. Assessment & Plan (11/05/2021 7:50 AM CDT): Bilateral lower eyelid retraction secondary to ARVIND. We will observe for the present time and she will return in 3-4 months. We will consider lower eyelid retraction repair in the future if exposure keratopathy secondary to lower eyelid retraction is bothersome. Change in bowel habits 10/31/2021 Alternating constipation and diarrhea 10/31/2021 Intermittent diarrhea 10/31/2021 History of sleeve gastrectomy 10/31/2021 Lump of left breast 04/01/2021 Breast pain, left 04/01/2021 Assessment & Plan (08/04/2022 4:52 PM RESOURCE DEVELOPMENT DIRECTOR): Not well controlled, continues to have severe episodes of breast pain, not related to menstrual cycles Follows with [facility] breast clinic; scheduled for MRI Patient reports breast cane can be as high as 8 of 10; radiates under left breast to left axilla; negative cardiac workup Some tenderness along costophrenic margins; may be related to rib pain; the patient also reports pain directly under nipples Will follow-up on recommendations per breast Clinic after completion of MRI Chronic migraine without aur a without status migrainosus, not intractable 03/07/2021 Hematuria 10/09/2020 Mastalgia 04/11/2020 Assessment & Plan (09/15/2022 5:09 PM CDT): Continues to have significant breast pain; all in left breast, intermittent, can be sharp or sore in nature Follows with breast clinic Continue with dietary changes Gastroesophageal reflux disease 01/13/2019 Overview (01/13/2019): Added automatically from request for surgery [id number] 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 Plan: The term Vern's and effect on thyroid explained to patient Labs and ultrasound reviewed and explained to patient I recommend annual TSH as she may develop thyroid dysfunction in the future Patient understands and agrees with above plan. Assessment & Plan (09/10/2021 1:05 PM RESOURCE DEVELOPMENT DIRECTOR): Stable, well controlled; TSH at target Continue to check TSH related, no need for thyroid hormone at this time Assessment & Plan (06/25/2021 3:22 PM RESOURCE DEVELOPMENT DIRECTOR): Stable, well controlled; continues to follow with Endocrinology; last TSH was normal, ultrasound reviewed No current medications AME (generalized anxiety disorder) 05/26/2018 Assessment & Plan (06/14/2024 3:04 PM RESOURCE DEVELOPMENT DIRECTOR): Not well controlled, acutely worsened due to breast pain and recent mammogram; waiting for results of mammogram Recommend patient take Ativan 1 mg scheduled b.i.d. to help with acute anxiety; will start sertraline 50 mg daily; adjust medication have follow-up based on response to therapy Assessment & Plan (09/15/2022 5:07 PM CDT): Generally well controlled; Continue Ativan 1 mg BID Assessment & Plan (08/04/2022 4:52 PM RESOURCE DEVELOPMENT DIRECTOR): Not well controlled; worsening; patient reports multiple medical stressors recently including surgery on foot, continue breast pain Patient has had multiple side effects from SSRIs and SNRIs; patient reports some relief with Ativan 0.5 mg b.i.d. Given limited relief with current dose of Ativan, increase to Ativan 1 mg b.i.d. Assessment & Plan (04/30/2022 3:20 PM CDT): Not well controlled; has been working with talk therapy; massage thearpy for relaxation -no relief with previus medications -will continue Lorazepam 0.5 mg TID prn Assessment & Plan (04/01/2022 1:25 PM CDT): Stable, improving; previously had poor response, improving with current medication No issues with sleeping or insomnia Continue bupropion 150 mg daily Assessment & Plan (09/10/2021 1:04 PM RESOURCE DEVELOPMENT DIRECTOR): Not well controlled, continues to have elevated anxiety and panic attacks, severe anxiety associated with small health concerns Patient reports no relief previously with Lexapro sertraline Patient is unclear if she needs daily medications Continue bupropion 150 mg daily, Valium 5 mg nightly Assessment & Plan (06/25/2021 3:21 PM RESOURCE DEVELOPMENT DIRECTOR): Stable, improving; patient reports decreased panic attacks on sertraline Continue Zoloft 50 mg daily, hydroxyzine 25 mg t.i.d. p.r.n. for panic attacks Iron deficiency anemia ever agudelo to inadequate dietary iron intake 02/04/2018 Assessment & Plan (09/15/2022 5:09 PM CDT): Stable, patient has iron infusion scheduled Assessment & Plan (09/10/2021 1:04 PM RESOURCE DEVELOPMENT DIRECTOR): Stable, improving; no evidence of anemia or iron deficiency at this time; continue to monitor with regular CBCs Assessment & Plan (06/25/2021 3:22 PM RESOURCE DEVELOPMENT DIRECTOR): Follows with Hematology for iron infusions Low vitamin D level 02/04/2018 B12 deficiency 01/31/2018 Iron deficiency 01/31/2018 Vitamin D deficiency 01/31/2018 History of borderline diabetes mellitus 02/01/20 18 Fatigue 01/31/2018 Metabolic and nutritional disorder 01/31/2018 Assessment & Plan (01/31/2018 12:20 PM CDT): Discussed insulin resistance including affect on weight and risk for progression to diabetes. Recommended low-carb, low-glycemic diet; choose whole grains and avoid more highly processed carbohydrates. Discussed potential benefits of this w/r/t gut microbiome. Referred to ADA and [employer] websites for additional information on topics including glycemic index/carbohydrate choices, protein sources. 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 Assessment & Plan (06/25/2021 3:23 PM RESOURCE DEVELOPMENT DIRECTOR): Postsurgical changes, secondary to gastric sleeve in 2016 Continue to monitor vitamin deficiencies Continue with B12 injections monthly, iron infusions there to Hematology, will continue to check Vomiting 04/22/2016 Positive test for human papillomavirus (HPV) Hypertriglyceridemia 09/26/2015 Eating disorder 07/30/2015 Class 3 severe obesity witho ut serious comorbidity with body mass index (BMI) of 45.0 to 49.9 in adult 07/19/2015 Assessment & Plan (12/17/2023 10:02 AM CDT): Stable, mild downtrending; may be secondary to acute illness Assessment & Plan (09/15/2022 5:08 PM CDT): Stable, improving, has been working on weight loss; follows with electrical instrument technician, cutting back on coffee and trying to eat better Encourage 30 minutes moderate intensity exercise 5 days per week Assessment & Plan (09/10/2021 1:05 PM RESOURCE DEVELOPMENT DIRECTOR): Not well controlled, patient has history of gastric sleeve, continues to have bowel issues associated gastric sleeve No significant change in weight, patient has been working on weight loss reports no significant changes Assessment & Plan (06/25/2021 3:24 PM RESOURCE DEVELOPMENT DIRECTOR): Not well controlled; patient is status post gastric sleeve, but continues to have elevated BMI Encouraged continued limitations of caloric intake as well as regular exercise Assessment & Plan (01/31/2018 12:22 PM CDT): Obesity is unchanged. General weight loss/lifestyle modification strategies discussed (elicit support from others; identify saboteurs; non-food rewards, etc). Regular aerobic exercise program discussed. Discussed possible use of metformin and/or GLP-1 RA pending labs. Hyperthyroidism 03/30/2010 Overview (02/09/2019): Overview: Several years s/p iodine therapy Peritoneal adhesions 03/30/2010 Overview (02/09/2019): Overview: Significant adhesions on last operative note History of section, classical 0 Overview (02/09/2019): Overview: Classical sections in 1st and 3rd sections, 2nd LTCS (1st op note not docmented, 2nd and 3rd documented) Resolved Problems Problem Noted Date Diagnosed Date Resolved Date Weight loss counseling, encounter for 01/31/2018 02/09/2019 Assessment & Plan (01/31/2018 12:18 PM CDT): Reviewed calorie restriction based on BMR as previously detailed. Reviewed recommendation/goal of >/= 150 minutes/week moderate-intensity aerobic exercise. Asked to keep detailed food diary for at least 1 week and bring to next visit. Status post gastric bypass for obesity 10/22/2017 02/09/2019 History of bariatric surgery 03/03/2016 02/09/2019 Assessment & Plan (01/31/2018 12:17 PM CDT): Routine post-bariatric surgery labs to assess for nutritional deficiencies due to malabsorption. Placenta previa 03/30/2010 06/13/2021 Immunizations Name Administration Dates Next Due Influenza, Unspecified 06/02/2023,2021,08/21/2021(Deferred: Patient Refused),04/17/2021,04/16/2021(Deferred: Patient Refused),07/06/2020(Deferred: Patient Refused) Tdap 05/26/2018,07/06/2017 Social History Tobacco Use Types Packs/Day Years Used Date Smoking Tobacco: Never Smokeless Tobacco: Never Tobacco Cessation:Counseling Given: Not Answered Alcohol Use Standard Drinks/Week Comments No 0 (1 standard drink = 0.6 oz pur e alcohol) AUDIT-C Answer Date Recorded Q1: How often do you have a drink containing alcohol? Never 02/24/2024 Q2: How many drinks containi ng alcohol do you have on a typical day when you are drinking? Patient does not drink Frequency of Binge Drinking Not on file 02/04 PHQ-2 Answer Date Recorded PHQ-2 Total Score (If total score is 3 or more points, staff should administer the PHQ-9) 0 12/17/2023 Personal Safety Answer Date Recorded Have you ever been in or are you currently in a harmful physical or emotional relationship or is someone making you feel afraid or unsafe? Denies 02/29/2024 Comments No Sex and Gender Information Value Date Recorded Sex Assigned at Not on file Legal Sex Female 8:26 PM RESOURCE DEVELOPMENT DIRECTOR Gender Identity Not on file Sexual Orientation Not on file Last Filed Vital Signs Vital Sign Reading Time Taken Comments Blood Pressure 120/74 07/27/2024 2:21 PM RESOURCE DEVELOPMENT DIRECTOR Pulse 78 07/27/2024 2:21 PM RESOURCE DEVELOPMENT DIRECTOR Temperature 36.4 ??C (97.5 ??F) 07/27/2024 2:21 PM CS T Respiratory Rate 18 07/27/2024 2:21 PM RESOURCE DEVELOPMENT DIRECTOR Oxygen Saturation 99% 07/27/2024 2:21 PM RESOURCE DEVELOPMENT DIRECTOR Inhaled Oxygen Concentration - - Weight 119.3 kg (263 lb) 07/20/2024 2:32 PM RESOURCE DEVELOPMENT DIRECTOR Height 162.6 cm (5' 4 ) 07/20/2024 2:32 PM RESOURCE DEVELOPMENT DIRECTOR Body Mass Index 45.14 07/20/2024 2:32 PM RESOURCE DEVELOPMENT DIRECTOR Plan of Treatment Not on file Procedures Procedure Name Priority Date/Time Associated Diagnosis Comments CORTISOL Routine 07/26/2024 8:06 AM RESOURCE DEVELOPMENT DIRECTOR FOLATE Routine 07/14/2024 11:30 AM RESOURCE DEVELOPMENT DIRECTOR EGFR Routine 07/14/2024 11:10 AM RESOURCE DEVELOPMENT DIRECTOR IODINE SERUM,PLASMA Routine 07/14/2024 1 1:10 AM RESOURCE DEVELOPMENT DIRECTOR TSH Routine 07/14/2024 11:10 AM RESOURCE DEVELOPMENT DIRECTOR THYROID PEROXIDASE ANTIBODY Routine 07/14/2024 11:10 AM RESOURCE DEVELOPMENT DIRECTOR TESTOSTERONE, TOTAL AND FREE, SERUM Routine 07/14/2024 11:10 AM RESOURCE DEVELOPMENT DIRECTOR T4, FREE Routine 07/14/2024 11:10 AM RESOURCE DEVELOPMENT DIRECTOR T3, FREE Routine 07/14/2024 11:10 AM RESOURCE DEVELOPMENT DIRECTOR PROGESTERONE Routine 07/14/2024 11:10 AM RESOURCE DEVELOPMENT DIRECTOR LUTEINIZING HORMONE (LH) Routine 07/14/2024 11:10 AM RESOURCE DEVELOPMENT DIRECTOR LIPID PANEL Routine 07/14/2024 11:10 AM RESOURCE DEVELOPMENT DIRECTOR INSULIN, TOTAL Routine 07/14/2024 11:10 AM RESOURCE DEVELOPMENT DIRECTOR HEMOGLOBIN A1C Routine 07/14/2024 11:10 AM RESOURCE DEVELOPMENT DIRECTOR FOLLICLE STIMULATING HORMONE Routine 07/14/2024 11:10 AM RESOURCE DEVELOPMENT DIRECTOR ESTRADIOL Routine 07/14/2024 11:10 AM RESOURCE DEVELOPMENT DIRECTOR DHEA-SULFATE Routine 07/14/2024 11:10 AM RESOURCE DEVELOPMENT DIRECTOR COMPREHENSIVE METABOLIC PANEL Routine 07/14/2024 11:10 AM RESOURCE DEVELOPMENT DIRECTOR ACTH Routine 07/14/2024 11:10 AM RESOURCE DEVELOPMENT DIRECTOR DIFFERENTIAL AUTO Routine 07/14/2024 10: 52 AM RESOURCE DEVELOPMENT DIRECTOR Iron deficiency VITAMIN B12 Routine 07/14/2024 10:52 AM RESOURCE DEVELOPMENT DIRECTOR B12 deficiency VITAMIN D 25 HYDROXY Routine 07/14/2024 10:52 AM RESOURCE DEVELOPMENT DIRECTOR Vitamin D deficiency CBC WITH AUTO DIFFERENTIAL Routine 07/14/2024 10:52 AM RESOURCE DEVELOPMENT DIRECTOR Iron deficiency IRON PROFILE W/ IBC Routine 07/14/2024 1 0:52 AM RESOURCE DEVELOPMENT DIRECTOR Iron deficiency FERRITIN Routine 07/14/2024 10:52 AM RESOURCE DEVELOPMENT DIRECTOR Iron deficiency ZINC Routine 07/14/2024 10:52 AM RESOURCE DEVELOPMENT DIRECTOR Fatigue, unspecified type SCREENING MAMMOGRAM BILATERAL W BRIAN Schedule Routine, Read Routine (OP Routine) 06/08/2024 4:56 PM RESOURCE DEVELOPMENT DIRECTOR Screening mammogram, encounter for HEPATITIS C ANTIBODY Routine 10/12/2023 9:08 AM CDT Screening for STDs (sexually transmitted diseases) from Last 3 Months or Most Recently Relevant to Health Maintenance Results * (ABNORMAL) Cortisol (07/26/2024 8:06 AM RESOURCE DEVELOPMENT DIRECTOR) Pathologist [facility] Cortisol 0.8(L) 4.8 - 19.5 mcg/dl Comment: Interpretive Data Normal Range: ??4.8 - 19.5 mcg/dL; ??Evening: ??Half of morning value. ?? This analyte undergoes marked diurnal variation. ??Ranges indicated apply to morning specimens. ?? Current interpretive data was last revised 2018. Testing performed by: [facility], [address] [place] [address]., [id number] Blood 07/26/2024 8:06 AM RESOURCE DEVELOPMENT DIRECTOR 07/26/2024 8:07 AM RESOURCE DEVELOPMENT DIRECTOR Ju Maldonado MD LAB BLOOD ORDERABLES Odalys l Result Performing Organization Address [facility] Co de Phone Number [facility] MEDINA) [address] [place] [address] [place] [address] * Folate (07/14/2024 11:30 AM RESOURCE DEVELOPMENT DIRECTOR) Pathologist [facility] Folic acid 7.9 >=5.0 ng/mL Comment: Hemolysis present. ??Results may be affected. Testing performed by: [facility], [address] [place] [address]., [id number] Blood 07/14/2024 11:3 0 AM RESOURCE DEVELOPMENT DIRECTOR 07/14/2024 1:26 PM RESOURCE DEVELOPMENT DIRECTOR Ju Maldonado MD LAB BLOOD ORDERABLES Odalys l Result Performing Organization Address [facility] Co de Phone Number [facility] (KEKE) 1 [facility] [place] [address] * eGFR (07/14/2024 11:10 AM RESOURCE DEVELOPMENT DIRECTOR) Pathologist [facility] eGFR >90 >=60 mL/min/1. 73 m2 Comment: Interpretive Data Reference Interval Normal ?>/= 90 mL/min/1.73m2 Mildly decreased* ? 60 - 89 mL/min/1.73m2 Mildly to moderately decreased ?45 - 59 mL/min/1.73m2 Moderately to severely decreased ??30 - 44 mL/min/1.73m2 Severely decreased ?15 - 29 mL/min/1.73m2 Kidney Failure ?< 15 ??mL/min/1.73m2 *Relative to young adult level Estimated glomerular filtration rate is determined by the 2020 CKD-EPI equation recommended by the National Kidney Foundation (A Unifying Approach to GFR Estimation: Recommendations of the NKF-ASK Task Force on Reassessing the Inclusion of Race in Diagnosing Kidney Disease, JASN 2020). The CKD-EPI equation should not be used for patients with unstable renal function and has not been validated in children and those over 70. Current interpretive data was last reviewed 2021. Testing performed by: [facility], [address] [place] [address], [place]., [address] Blood 07/14/2024 11:1 0 AM RESOURCE DEVELOPMENT DIRECTOR 07/14/2024 10:41 PM RESOURCE DEVELOPMENT DIRECTOR us Ju Maldonado MD LAB BLOOD ORDERABLES Odalys jennings Result Performing Organization Address City/State/[facility] Co de Phone Number [facility]) [facility] [place] [address] * Iodine serum, plasma (07/14/2024 11:10 AM RESOURCE DEVELOPMENT DIRECTOR) [facility] Iodine 52 40 - 92 ng/mL Dana ref Lab Comment: ADDITIONAL INFORMATION This test was developed and its performance characteristics determined by [facility] in a manner consistent with CLIA requirements. This test has not been cleared or approved by the U.S. Food and Drug Administration. Test Performed by: [facility] [address] [place] [address] Hand Mica Plate Layer: Kojo Alvarenga Ph.D.; CLIA# [id number] Testing performed by: [facility], [address] [place] [address]., [id number] Blood 07/14/2024 11:1 0 AM RESOURCE DEVELOPMENT DIRECTOR 07/14/2024 10:34 PM RESOURCE DEVELOPMENT DIRECTOR Ju Maldonado MD LAB BLOOD ORDERABLES Odalys l Result Performing Organization Address City/[facility]/ZIP Co de Phone Number [facility] (MEDINA) 1 [place] [address] Solomon ref Lab * (ABNORMAL) Thyroid peroxidase antibody (TPO) (07/14/2024 11:10 AM RESOURCE DEVELOPMENT DIRECTOR) Anti Thyroid Peroxidase 434(H) <=34 IUnits/mL Comment: ATPO Interpretive Data Results may be up to 28% higher in patients receiving Itraconazole. Current interpretive data was last revised 2020. Testing performed by: [facility], [address] [place] [address], [id number] Blood 07/14/2024 11:1 0 AM RESOURCE DEVELOPMENT DIRECTOR 07/15/2024 10:04 AM RESOURCE DEVELOPMENT DIRECTOR Ju Maldonado MD LAB BLOOD ORDERABLES Odalys l Result [facility] (KEKE) 1 [facility] [place] ?[place] [address] * Progesterone (07/14/2024 11:10 AM RESOURCE DEVELOPMENT DIRECTOR) Progesterone 2.35 ng/mL Comment: Interpretive Data Males: ?<0.15 ng/mL Females: ??Follicular ?<0.20 ng/mL ??Ovulation ? <4.1 ng/mL ??Luteal ?4.1 - ??14.5 ng/mL ??1st Trimester ?? 11.0 - ??44.0 ng/mL ??2nd Trimester ?? 25.0 - ??83.0 ng/mL ??3rd Trimester ?? 59.0 - 214.0 ng/mL ??Postmenopausal ??<0.13 ng/mL Current interpretive data was last revised 2021. Testing performed by: [facility], [address] [place] [address]., [id number] Blood 07/14/2024 11:1 0 AM RESOURCE DEVELOPMENT DIRECTOR 07/15/2024 10:04 AM RESOURCE DEVELOPMENT DIRECTOR Ju Maldonado MD LAB BLOOD ORDERABLES Odalys l Result Performing Organization Address City/[facility]/ZIP Co de Phone Number [facility] (MEDINA) 1 [facility] [place] [address] * (ABNORMAL) Insulin, total (07/14/2024 11:10 AM RESOURCE DEVELOPMENT DIRECTOR) Insulin 28.0(H) 2.6 - 25.0 mcIUnit/mL Comment:Testing performed by : [facility], [address] [place] [address], [id number] Blood 07/14/2024 11:1 0 AM RESOURCE DEVELOPMENT DIRECTOR 07/15/2024 10:04 AM RESOURCE DEVELOPMENT DIRECTOR Ju Maldonado MD LAB BLOOD ORDERABLES Odalys l Result Performing Organization Address City/[facility]/ZIP Co de Phone Number [facility] (MEDINA) 1 [facility] [place] [address] * DHEA-sulfate (07/14/2024 11:10 AM RESOURCE DEVELOPMENT DIRECTOR) DHEA-S 73.5 60.9 - 337.0 mcg/dL Comment:Testing performed by : [facility], [address] [place] [address], [id number] Blood 07/14/2024 11:1 0 AM RESOURCE DEVELOPMENT DIRECTOR 07/15/2024 10:04 AM RESOURCE DEVELOPMENT DIRECTOR Ju Maldonado MD LAB BLOOD ORDERABLES Odalys l Result [facility]INA [facility] (MEDINA) [address] [place] [address] [employer] ??? [place] [address] * Estradiol (07/14/2024 11:10 AM RESOURCE DEVELOPMENT DIRECTOR) Estradiol 210.0 pg/mL Comment: Interpretive Data Males: 11 ? 43 pg/mL Females: Premenopausal: 31 ? 533 pg/mL Postmenopausal: < 50 pg/mL Patients treated with Fluvestrant (Faslodex) should be tested using an alternate assay such as LC-MS due to potential for cross-reactivity. Estradiol varies widely throughout the menstrual cycle. Current interpretive data was last revised 2024. Testing performed by: [facility], [address] [place] [address]., [id number] Blood 07/14/2024 11:1 0 AM RESOURCE DEVELOPMENT DIRECTOR 07/15/2024 10:04 AM RESOURCE DEVELOPMENT DIRECTOR Ju Maldonado MD LAB BLOOD ORDERABLES Odalys l Result Performing Organization Address [facility] Co de Phone Number [facility] (MEDINA) [address] [place] [address] * ACTH (07/14/2024 11:10 AM RESOURCE DEVELOPMENT DIRECTOR) ACTH 7.9 7.0 - 63.0 pg/mL Comment:Testing performed by : [facility], [address] [place] [address]., [id number] Blood 07/14/2024 11:1 0 AM RESOURCE DEVELOPMENT DIRECTOR 07/15/2024 10:01 AM RESOURCE DEVELOPMENT DIRECTOR Ju Maldonado MD LAB BLOOD ORDERABLES Odalys l Result [facility] (MEDINA) 1 [facility] [place] [address] * (ABNORMAL) Testosterone, Total and Free, Serum (07/14/2024 11:10 AM RESOURCE DEVELOPMENT DIRECTOR) Pathologist [facility] Testosterone 95(H) 8 - 60 ng/dL Dana ref Lab Comment: ADDITIONAL INFORMATION Testing performed by Liquid Chromatography-Tandem Mass Spectrometry (LC-MS/MS). This test was developed and its performance characteristics determined by [facility] in a manner consistent with CLIA requirements. This test has not been cleared or approved by the U.S. Food and Drug Administration. Test Performed by: [address] [address] Hand Mica Plate Layer: Kojo Alvarenga Ph.D.; CLIA# [id number] Testing performed by: [address], [address] Testosterone, free 1.27(H) <0.13 - 0.98 ng/dL [facility] (KEKE) Comment: ADDITIONAL INFORMATION This test was developed and its performance characteristics determined by [facility] in a manner consistent with CLIA requirements. This test has not been cleared or approved by the U.S. Food and Drug Administration. Testing performed by: [address], [address] Blood 07/14/2024 11:1 0 AM RESOURCE DEVELOPMENT DIRECTOR 07/14/2024 10:34 PM RESOURCE DEVELOPMENT DIRECTOR us Ju Maldonado MD LAB BLOOD ORDERABLES Odalys jennings Result [facility] (KEKE) 1 [facility] [place] [address] Dana ref Lab * T3, free (07/14/2024 11:10 AM RESOURCE DEVELOPMENT DIRECTOR) Free T3 2.5 2.0 - 4.4 pg/mL Comment:Testing performed by : [facility], [address] [place] [address], [id number] Blood 07/14/2024 11:1 0 AM RESOURCE DEVELOPMENT DIRECTOR 07/14/2024 11:10 AM RESOURCE DEVELOPMENT DIRECTOR Ju Maldonado MD LAB BLOOD ORDERABLES Odalys l Result [facility] (KEKE) 1 [facility] [place] ??? [place] [address] * TSH (07/14/2024 11:10 AM RESOURCE DEVELOPMENT DIRECTOR) Thyroid Stimulating Hormone 3.45 0.30 - 4.20 mcIUnit/mL Comment:Testing performed by : [facility], [address] [place] [address], [id number] Blood 07/14/2024 11:1 0 AM RESOURCE DEVELOPMENT DIRECTOR 07/14/2024 11:10 AM RESOURCE DEVELOPMENT DIRECTOR Ju Maldonado MD LAB BLOOD ORDERABLES Odalys l Result Performing Organization Address City/[facility]/ZIP Co de Phone Number [facility] (KEKE) 1 [facility] [address] * (ABNORMAL) T4, free (07/14/2024 11:10 AM RESOURCE DEVELOPMENT DIRECTOR) Free T4 0.88(L) 0.90 - 1.70 ng/dL Comment:Testing performed by : [address] [place] [address] Blood 07/14/2024 11:1 0 AM RESOURCE DEVELOPMENT DIRECTOR 07/14/2024 11:10 AM RESOURCE DEVELOPMENT DIRECTOR us Ju Maldonado MD LAB BLOOD ORDERABLES Odalys l Result [facility] (KEKE) 1 [facility] [place] ??? [place] [address] * (ABNORMAL) Hemoglobin A1c (07/14/2024 11:10 AM RESOURCE DEVELOPMENT DIRECTOR) Hgb A1C 7.0(H) 4.0 - 5.6 % Comment:Testing performed by : [facility], [address] [place] [address]., [id number] Estimated Average Glucose 154 mg/dL [facility] (KEKE) Comment: The ADA recommends reporting an estimated Average Glucose (eAG) with all Hemoglobin A1c results using the equation derived from a study of 507 normal and diabetic adults. ??Minority populations were underrepresented and children were not included. ?? (Diabetes Care 31:8170-9093, 2008). ??The eAG is not equivalent to a fasting glucose. Testing performed by: [facility], [address] [place] [address]., [id number] Blood 07/14/2024 11:1 0 AM RESOURCE DEVELOPMENT DIRECTOR 07/14/2024 11:11 AM RESOURCE DEVELOPMENT DIRECTOR Ju Maldonado MD LAB BLOOD ORDERABLES Odalys l Result [facility] (KEKE) 1 [facility] [place] [address] * LH (07/14/2024 11:10 AM RESOURCE DEVELOPMENT DIRECTOR) Pathologist [facility] LH 14.1 IUnits/L Comment: Interpretive Data Males: ??Adults: ? 1.7 - 8.6 ?? IUnits/L Females: ?Follicular: ? 2.4 - 12.6 ??IUnits/L ??Ovulation: ? 14.0 - 95.6 ??IUnits/L ?Luteal: ? 1.0 - 11.4 ??IUnits/L ??Postmenopausal: 7.7 - 58.5 ??IUnits/L Current interpretive data was last revised on 2018. Testing performed by: [facility], [address] [facility] [place]., [address] Blood 07/14/2024 11:1 0 AM RESOURCE DEVELOPMENT DIRECTOR 07/15/2024 10:04 AM RESOURCE DEVELOPMENT DIRECTOR Ju Maldonado MD LAB BLOOD ORDERABLES Odalys l Result Performing Organization Address [facility] Co de Phone Number [facility]ER (KEKE) 1 [facility] [place] ?[place] [address] * Follicle stimulating hormone (07/14/2024 11:10 AM RESOURCE DEVELOPMENT DIRECTOR) FSH 2.7 IUnits/L Comment: Interpretive Data Male: Adults: ?1.5 - 12.4 IUnits/L Female: ?? Follicular: ?3.5 - 12.5 IUnits/L Ovulation: ? 4.7 - 21.5 IUnits/L Luteal: ?1.7 - 7.7 IUnits/L Postmenopausal: 25.8 - 134.8 IUnits/L Current interpretive data was last revised 2015. Testing performed by: [facility], [address] [facility] [place]., [address] Blood 07/14/2024 11:1 0 AM RESOURCE DEVELOPMENT DIRECTOR 07/15/2024 10:04 AM RESOURCE DEVELOPMENT DIRECTOR Ju Maldonado MD LAB BLOOD ORDERABLES Odalys l Result Performing Organization Address [facility] Co de Phone Number [facility] (MEDINA) 1 [facility] [place] [address] * (ABNORMAL) Lipid panel (07/14/2024 11:10 AM RESOURCE DEVELOPMENT DIRECTOR) Cholesterol 224(H) 30 - 199 mg/dL Comment: Interpretive Data Ages < or = 19 years ??Acceptable: ? <170 mg/dL ??Borderline high: ??170-199 mg/dL ??High: ? >or= 200 mg/dL Ages > or = 20 years ??Desirable: ?<200 mg/dL ??Borderline high: ??200-239 mg/dL ??High: ? >or= 240 mg/dL Literature References: 1. Expert Panel on Integrated Guidelines for Cardiovascular Health and Risk Reduction in Children and Adolescents. Pediatrics 2011;128:S213 2. NCEP Expert Panel. Circulation 2004;110:227 Current Interpretive Data was last revised on 2018. Testing performed by: [facility], [address] [place] [address]., [address] Triglycerides 91 <=149 mg/dL [facility] (KEKE) Comment: Interpretive Data Ages < or = 9 years ??Acceptable: ? <75 mg/dL ??Borderline high: ??75-99 mg/dL ??High: ? >or= 100 mg/dL Ages 10 to 20 years ??Acceptable: ? <90 mg/dL ??Borderline high: ??90-129 mg/dL ??High: ? >or= 130 mg/dL Ages > or = 20 years ??Desirable: ?<150 mg/dL ??Borderline high: ??150-199 mg/dL ??High: ? 200-499 mg/dL ?Very high: ?? >or= 499 mg/dL Literature References: 1. Expert Panel on Integrated Guidelines for Cardiovascular Health and Risk Reduction in Children and Adolescents. Pediatrics 2011;128:S213 2. NCEP Expert Panel. Circulation 2004;110:227 Current Interpretive Data was last revised on 2018. Testing performed by: [facility], [address] [place] [address]., [address] HDL 66 >=40 mg/dL [facility] (KEKE) Comment: Interpretive Data Ages < or = 19 years ??Acceptable: ? >45 mg/dL ??Borderline low: ?? 40-45 mg/dL ??Low: ? <40 mg/dL Ages > or = 20 years ??Desirable: ?>or= 60 mg/dL ??Low: ? <40 mg/dL Literature References: 1. Expert Panel on Integrated Guidelines for Cardiovascular Health and Risk Reduction in Children and Adolescents. Pediatrics 2011;128:S213 2. NCEP Expert Panel. Circulation 2004;110:227 Current Interpretive Data was last revised on 2018. Testing performed by: [facility], [address] [place] [address], [place]., [address] LDL, calculated 142(H) <=129 mg/dL [facility] (KEKE) Comment: Interpretive Data Ages < or = 19 years ??Acceptable: ? <110 mg/dL ??Borderline high: ??110-129 mg/dL ??High: ?>or= 130 mg/dL Ages > or = 20 years ??Optimal: ? <100 mg/dL ??Near optimal: ?100-129 mg/dL ??Borderline high: ?? 130-159 mg/dL ??High: ?>160 mg/dL Calculated using the Shukri LDL-C estimating equation. This equation was implemented on 2024. Prior to this date LDL-C was estimated using the Friedewald equation. Literature References: 1. Expert Panel on Integrated Guidelines for Cardiovascular Health and Risk Reduction in Children and Adolescents. Pediatrics 2011;128:S213 2. NCEP Expert Panel. Circulation 2004;110:227 3. Shukri Recio et al. RUBIN Cardiol. 2020 November 03;5(5):540-548. doi: 10.1001/jamacardio.2020.0013 Current Interpretive Data was last revised on 2024. Testing performed by: [facility], [address] [place] [address], [place]., [address] Non-HDL Cholesterol 158 mg/dL [facility] (KEKE) Comment: Interpretive Data Ages < or = 19 years ??Acceptable: ?<120 mg/dL ??Borderline high: ??120-144 mg/dL ??High: ?>145 mg/dL Ages > or = 20 years ??When triglycerides are >200 mg/dL, Non-HDL cholesterol is a secondary target of ? therapy with treatment goals that are 30 mg/dL greater than the LDL cholesterol target. ? Literature References: 1. Expert Panel on Integrated Guidelines for Cardiovascular Health and Risk Reduction in Children and Adolescents. Pediatrics 2011;128:S213 2. NCEP Expert Panel. Circulation 2004;110:227 Current Interpretive Data was last revised on 2018. Testing performed by: [address] [address] Chol/HDL ratio 3 [facility] (KEKE) Comment:Testing performed by : [address], [address] Blood 07/14/2024 11:1 0 AM RESOURCE DEVELOPMENT DIRECTOR 07/14/2024 11:10 AM RESOURCE DEVELOPMENT DIRECTOR Ju Maldonado MD LAB BLOOD ORDERABLES Odalys jennings Result [facility] (MEDINA) 1 [facility] [place] [address] * (ABNORMAL) Comprehensive metabolic panel (07/14/2024 11:10 AM RESOURCE DEVELOPMENT DIRECTOR) Sodium 138 135 - 145 mmol/L Comment:Testing performed by : [address] [address] Potassium, pl 4.3 3.3 - 4.9 mmol/L [facility] (KEKE) Comment:Testing performed by : [address], [address] Chloride 102 97 - 110 mmol/L [facility] (KEKE) Comment:Testing performed by : [address] [address] CO2 24 22 - 32 mmol/L [facility] (KEKE) Comment:Testing performed by : [address], [address] Anion gap 12 2 - 15 mmol/L [facility] (KEKE) Comment:Testing performed by : [address], [address] BUN 14 6 - 25 mg/dL [facility] (KEKE) Comment:Testing performed by : [address] [address] Creatinine 0.60 0.60 - 1.10 mg/dL [facility] (KEKE) Comment:Testing performed by : [address] [address] Glucose 109 70 - 199 mg/dL [facility] (KEKE) Comment: Interpretive Data Fasting glucose >/= 126 mg/dl is diagnostic for diabetes. ?? Fasting is defined as no caloric intake for at least 8 hours. Fasting glucose between 100 mg/dl to 125 mg/dl is diagnostic of prediabetes. In a patient with classic symptoms of hyperglycemia or hyperglycemic crisis, a random glucose >/= 200 mg/dl is diagnostic for diabetes. In the absence of unequivocal hyperglycemia, results should be confirmed by repeat testing. The classification and Diagnosis of Diabetes Diabetes Care 2021; 46: S19-S40. Current interpretive data was last revised 2022. Testing performed by: [address], [address] Calcium 8.9 8.5 - 10.3 mg/dL [facility] (KEKE) Comment:Testing performed by : [address], [address] Bilirubin, total 0.3 0.1 - 1.2 mg/dL [facility] (KEKE) Comment:Testing performed by : [address] [address] Protein, pl 7.3 6.5 - 8.5 g/dL [facility] (KEKE) Comment:Testing performed by : [address], [address] Albumin 4.0 3.5 - 5.0 g/dL [facility] (KEKE) Comment:Testing performed by : [address], [address] Alk phos 96 40 - 130 Units/L [facility] (KEKE) Comment:Testing performed by : [address], [address] ALT 67(H) 7 - 45 Units/L [facility] (KEKE) Comment:Testing performed by : [facility], [address], [place]., [address] AST 68(H) 10 - 45 Units/L [facility] (KEKE) Comment:Testing performed by : [facility], [address] [place] [address], [address] Blood 07/14/2024 11:1 0 AM RESOURCE DEVELOPMENT DIRECTOR 07/14/2024 11:10 AM RESOURCE DEVELOPMENT DIRECTOR Ju Maldonado MD LAB BLOOD ORDERABLES Odalys jennings Result [facility] (KEKE) 1 [facility] [place] [address] * Differential, auto (07/14/2024 10:52 AM RESOURCE DEVELOPMENT DIRECTOR) Neutrophil abs 4.0 1.5 - 6.5 K/cumm Comment:Testing performed by : [facility], [address] [place] [address], [address] Imm gran abs 0.0 0.0 - 0.1 K/cumm [facility] (KEKE) Comment:Testing performed by : [facility], [address] [place] [address], [address] Lymphocyte abs 1.8 0.8 - 3.3 K/cumm [facility] (KEKE) Comment:Testing performed by : [address] [address] Monocyte abs 0.5 0.2 - 0.8 K/cumm [facility] (KEKE) Comment:Testing performed by : [address], [address] Eosinophil abs 0.1 0.0 - 0.5 K/cumm [facility] (KEKE) Comment:Testing performed by : [address], [address] Basophil abs 0.1 0.0 - 0.1 K/cumm [facility] (KEKE) Comment:Testing performed by : [address], [address] Neutrophil pct 62.5 % [facility] (KEKE) Comment: Interpretive Data Percent cell count reference ranges are not reported, since discordance with absolute values may lead to misinterpretation of CBC data. Current Interpretive Data was last revised on 2017. Testing performed by: [facility], [address] [place] [address]., [address] Imm gran pct 0.3 % [facility] (KEKE) Comment: Interpretive Data Percent cell count reference ranges are not reported, since discordance with absolute values may lead to misinterpretation of CBC data. Current Interpretive Data was last revised on 2017. Testing performed by: [facility], [address] [place] [address]., [address] Lymphocyte pct 28.1 % [facility] (KEKE) Comment: Interpretive Data Percent cell count reference ranges are not reported, since discordance with absolute values may lead to misinterpretation of CBC data. Current Interpretive Data was last revised on 2017. Testing performed by: [facility], [address] [place] [address]., [address] Monocyte pct 7.1 % [facility] (KEKE) Comment: Interpretive Data Percent cell count reference ranges are not reported, since discordance with absolute values may lead to misinterpretation of CBC data. Current Interpretive Data was last revised on 2017. Testing performed by: [facility], [address] [place] [address]., [address] Eosinophil pct 1.1 % [facility] (KEKE) Comment: Interpretive Data Percent cell count reference ranges are not reported, since discordance with absolute values may lead to misinterpretation of CBC data. Current Interpretive Data was last revised on 2017. Testing performed by: [facility], [address] [place] [address]., [address] Basophil pct 0.9 % [facility] (KEKE) Comment: Interpretive Data Percent cell count reference ranges are not reported, since discordance with absolute values may lead to misinterpretation of CBC data. Current Interpretive Data was last revised on 2017. Testing performed by: [address] [address] Blood 07/14/2024 10:5 2 AM RESOURCE DEVELOPMENT DIRECTOR 07/14/2024 10:42 PM RESOURCE DEVELOPMENT DIRECTOR us Chaparro Harris MD LAB BLOOD ORDERABLES Odalys jennings Result [facility] (KEKE) 1 [facility] [place] [address] * (ABNORMAL) Iron profile w/ IBC (07/14/2024 10:52 AM RESOURCE DEVELOPMENT DIRECTOR) [facility] Iron 39 35 - 145 mcg/dl Comment:Testing performed by : [facility], [address] [place] [address], [address] TIBC 380 250 - 400 mcg/dL [facility] (KEKE) Comment:Testing performed by : [facility], [address] [place] [address], [address] Transferrin saturation 10(L) 20 - 50 % [facility] ([facility]) Comment:Testing performed by : [address], [address] Blood 07/14/2024 10:5 2 AM RESOURCE DEVELOPMENT DIRECTOR 07/14/2024 10:42 PM RESOURCE DEVELOPMENT DIRECTOR Chaparro Harris MD LAB BLOOD ORDERABLES Odalys jennings Result [facility] (KEKE) 1 [facility] Department [place] [address] * (ABNORMAL) CBC with auto differential (07/14/2024 10:52 AM RESOURCE DEVELOPMENT DIRECTOR) [facility] WBC 6.3 3.8 - 9.9 K/cumm Comment:Testing performed by : [address], [address] Hgb 10.6(L) 11.9 - 15.5 g/dL [facility] ([facility]) Comment:Testing performed by : [address], [address] Hct 36.5 35.6 - 45.5 % [facility] ([facility]) Comment:Testing performed by : [address], [address] Plt 334 150 - 400 K/cumm [facility] ([facility]) Comment:Testing performed by : [address], [address] MPV 10.2 9.1 - 12.3 fL [facility] ([facility]) Comment:Testing performed by : [facility], [address] [place] [address], [address] RBC 4.31 3.90 - 5.20 M/cumm [facility] ([facility]) Comment:Testing performed by : [facility], [address] [place] [address], [address] MCV 84.7 81.3 - 96.4 fL [facility] ([facility]) Comment:Testing performed by : [facility], [address] [place] [address], [address] MCH 24.6(L) 27.1 - 33.3 pg [facility] ([facility]) Comment:Testing performed by : [facility], [address] [place] [address], [address] MCHC 29.0(L) 32.3 - 35.7 g/dL [facility] ([facility]) Comment:Testing performed by : [address], [address] RDW CV 14.6 11.1 - 14.9 % [facility] ([facility]) Comment:Testing performed by : [address], [address] RDW SD 45.3 35.7 - 48.1 fL [facility] ([facility]) Comment:Testing performed by : [address], [address] NRBC abs 0.00 0.00 - 0.01 K/cumm [facility] ([facility]) Comment:Testing performed by : [address], [address] Blood 07/14/2024 10:5 2 AM RESOURCE DEVELOPMENT DIRECTOR 07/14/2024 10:42 PM RESOURCE DEVELOPMENT DIRECTOR Narrative [facility] ([facility]) - 07/14/2024 10:58 PM RESOURCE DEVELOPMENT DIRECTOR fax to [phone] us Chaparro Harris MD LAB BLOOD ORDERABLES Odalys jennings Result [facility] ([facility]) 1 [facility] Department [place] [address] * Zinc (07/14/2024 10:52 AM RESOURCE DEVELOPMENT DIRECTOR) Zinc 75 60 - 106 mcg/dL Solomon ref Lab Comment: ADDITIONAL INFORMATION This test was developed and its performance characteristics determined by [facility] in a manner consistent with CLIA requirements. This test has not been cleared or approved by the U.S. Food and Drug Administration. Test Performed by: [facility] - [facility] [address] [place] [address] Hand Mica Plate Layer: Kojo Alvarenga Ph.D.; CLIA# [id number] Testing performed by: [facility], [address] [place] [address], [address] Blood 07/14/2024 10:5 2 AM RESOURCE DEVELOPMENT DIRECTOR 07/14/2024 10:42 PM RESOURCE DEVELOPMENT DIRECTOR Chaparro Harris MD LAB BLOOD ORDERABLES Odalys l Result [facility] ([facility]) 1 [facility] [place] [address] [facility] ref Lab * Vitamin D 25 hydroxy (07/14/2024 10:52 AM RESOURCE DEVELOPMENT DIRECTOR) [facility] Vitamin D 25-OH 30 30 - 80 ng/mL Comment:Testing performed by : [facility], [address] [place] [address], [address] Blood 07/14/2024 10:5 2 AM RESOURCE DEVELOPMENT DIRECTOR 07/14/2024 10:42 PM RESOURCE DEVELOPMENT DIRECTOR Chaparro Harris MD LAB BLOOD ORDERABLES Odalys l Result [facility] ([facility]) 1 [facility] ?[address] [place] [address] * Ferritin (07/14/2024 10:52 AM RESOURCE DEVELOPMENT DIRECTOR) [facility] Ferritin 15 15 - 150 ng/mL Comment:Testing performed by : [address], [address] Blood 07/14/2024 10:5 2 AM RESOURCE DEVELOPMENT DIRECTOR 07/14/2024 10:42 PM RESOURCE DEVELOPMENT DIRECTOR Chaparro Harris MD LAB BLOOD ORDERABLES Odalys l Result [facility] KE[facility]) 1 [facility] ?[place] [address] * Vitamin B12 (07/14/2024 10:52 AM RESOURCE DEVELOPMENT DIRECTOR) Vitamin B12 492 230 - 1,250 pg/mL Comment:Testing performed by : [facility], [address] [place] [address], [facility], [address] Blood 07/14/2024 10:5 2 AM RESOURCE DEVELOPMENT DIRECTOR 07/14/2024 10:42 PM RESOURCE DEVELOPMENT DIRECTOR Chaparro Harris MD LAB BLOOD ORDERABLES Odalys l Result Performing Organization Address [facility] Co de Phone Number [facility] MED[facility]) 1 [facility] ?[place] [address] * Screening Mammogram Bilateral W Brian (06/08/2024 4:56 PM RESOURCE DEVELOPMENT DIRECTOR) Anatomical Region Laterality Modality Breast Bilateral Mammography 06/09/2024 11:3 5 AM RESOURCE DEVELOPMENT DIRECTOR Impressions 06/09/2024 11:35 AM RESOURCE DEVELOPMENT DIRECTOR No evidence of malignancy in either breast. FINAL ASSESSMENT: BI-RADS Category 1: Negative. RECOMMENDATION: Recommend return for annual screening mammogram in 12 months. ?? Electronically signed by: Sonya Olsen M.D. Narrative 06/09/2024 11:35 AM RESOURCE DEVELOPMENT DIRECTOR EXAMINATION: BILATERAL SCREENING MAMMOGRAM COMPARISON: All prior mammograms dating back to 2021. TECHNIQUE: Full-field 2D and digital breast tomosynthesis (DBT) images were obtained. CAD was utilized. BREAST PARENCHYMAL COMPOSITION: ??The breasts are almost entirely fatty. FINDINGS: There is no suspicious mass, calcification, or distortion in either breast. Self Screening Mammogram IMG MAMMO PROCEDURES Fi nal Result * Hepatitis C antibody Blood (10/12/2023 9:08 AM CDT) Hep C Ab Nonreactive Nonreactive Comment: Interpretive Data Nonreactive: Antibodies to HCV not detected. Does NOT exclude the possibility of recent exposure to HCV. Equivocal: Equivocal for HCV antibodies. Supplemental molecular testing will be automatically performed to determine infection status in accordance with current CDC screening recommendations. ?? Reactive: Positive for HCV antibodies. ??This may represent current or past HCV infection. Supplemental molecular testing will be automatically performed to determine ??current infection status in accordance with current CDC screening recommendations. Interpretive data was last revised on 2019. Blood 10/12/2023 9:08 AM CDT 10/12/2023 2:28 PM CDT us Shivani Manning MD LAB MICROBIOLOGY - GENERAL O RDERABLES Final Result [facility] [address] [place] [address] from Last 3 Months or Most Recently Relevant to Health Maintenance Insurance [facility] Advance Directives For more information, please contact: [phone] * Full Code (Latest Code Status on File) Date Activated Date Inactivated Comments 11/27/2021 8:51 AM 11/27/2021 4:54 PM * Full Code Date Activated Date Inactivated Comments 11/27/2021 8:51 AM 11/27/2021 8:51 AM * Full Code Date Activated Date Inactivated Comments 02/09/2019 1:46 PM 02/09/2019 7:27 PM Care Teams Fall Internship Relationship Specialty Start Date End Date Chaparro Harris MD [address] [place] [address] PCP - General Family Medicine 10/01/21 Jeff Umanzor MD [address] [place] [address] Referring Physician Obstetrics and Gynecology 08/10/23
--- OUTSIDE RECORDS SUMMARY | 2024-07-28 20:06 | XMS_ITS | Encounter Summary ---
Author Organization [facility] Healthcare Address [address] [place] [address] Care Team Providers Care Data Warehouse Manager Name Role Phone Chaparro Harris MD Primary Care Provider [phone] Jeff Umanzor MD Unavailable [phone] Reason for Visit * Auth/Cert (Routine) Specialty Diagnoses / Procedures Referred By Contac t Referred To Contact Diagnoses Rectal bleeding Rectal pain Rectal bleeding [K62.5] Rectal pain [K62.89] Procedures [place] SIGMOIDOSCOPY FLX DX W/COLLJ SPEC BR/WA IF PFRMD SIGMOIDOSCOPY Referral ID Status Reason Start Date Expiration Date Visits Re quested Visits Authorized [id number] 1 1 Encounter Details Date Type Department Care Team (Late st Contact Info) Description 04/15/2024 Hospital Encounter [facility] 1 [place] [address] Laverne Monteiro MD [address] [place] [id number] Social History Tobacco Use Types Packs/Day Years Used Date Smoking Tobacco: Never Smokeless Tobacco: Never Alcohol Use Standard Drinks/Week Comments No 0 [...] on file Legal Sex Female 8:26 PM PLEAT TAPER Gender Identity Not on file Sexual Orientation Not on file documented as of this encounter Plan of Treatment Not on file documented as of this encounter Visit Diagnoses Diagnosis Rectal bleeding Hemorrhage of rectum and anus Rectal pain Anal or rectal pain documented in this encounter Admitting Diagnoses Diagnosis Rectal bleeding Hemorrhage of rectum and anus Rectal pain Anal or rectal pain documented in this encounter Care Teams Data Warehouse Manager Relationship Specialty Start Date End Date Chaparro Harris MD [address] [place] [address] PCP - General Family Medicine 10/01/21 Jeff Umanzor MD [address] [place] [address] Referring Physician Obstetrics and Gynecology 08/10/23 documented as of this encounter
--- OUTSIDE RECORDS SUMMARY | 2024-07-28 20:06 | XMS_ITS | Encounter Summary ---
Author Organization [facility] [facility] Address [address] [place] [address] Care Team Providers Care Hr Shared Services Consultant Name Role Phone Chaparro Harris MD Primary Care Provider [phone] Reason for Visit * Reason Onset Date Comments lab orders 08/25/2022 Encounter Details Date Type Department Care Team (Late Contact Info) Description 08/25/2022 Telephone [facility] Oncology and Hematology - [place] [address] [facility] [address] [place] [address] [place] [address] [place] [address] [address] [place] [address] lab orders Social History Tobacco Use Types Packs/Day Years Used Date Smoking Tobacco: Never Smokeless Tobacco: Never Alcohol Use Standard Drinks/Week Comments No 0 (1 standard drink = 0.6 oz pur e alcohol) Comments No Sex and Gender Information Value Date Recorded Sex Assigned at Not on file Legal Sex Female 5:58 AM TEACHER PUBLIC HEALTH Gender Identity Not on file Sexual Orientation Not on file COVID-19 Exposure Response Date Recorded In the last 10 days, have yo u been in contact with someone who was confirmed or suspected to have Coronavirus/COVID-19? No / Unsure 08/26/2022 3:07 PM TEACHER PUBLIC HEALTH documented as of this encounter Plan of Treatment Upcoming Encounters Date Type Department Care Team (Late Contact Info) Description 10/05/2024 3:45 PM CDT Office Visit [facility] Oncology and Hematology - [place] [address] [facility] [address] [place] [address] Codey Angeles MD [address] [facility] [address] [place] [address] Scheduled Orders Name Type Priority Associated Diagnoses Orde r Schedule CBC WITH DIFFERENTIAL Lab Routine Iron deficiency anemia due to chronic blood loss Expected: 08/25/2022, Expires: 08/25/2023 IRON, TIBC, AND PERCENT SATURATION Lab Routine Iron deficiency anemia due to chronic blood loss Expected: 08/25/2022, Expires: 08/25/2023 FERRITIN Lab Routine Iron deficiency anemia due to chronic blood loss Expected: 08/25/2022, Expires: 08/25/2023 documented as of this encounter Visit Diagnoses Diagnosis Iron deficiency anemia due to chronic blood loss- Primary Iron deficiency anemia secondary to blood loss (chronic) documented in this encounter Care Teams Hr Shared Services Consultant Relationship Specialty Start Date End Date Chaparro Harris MD [address] [place] [address] PCP - General Family Practice 02/27/23 documented as of this encounter
--- OUTSIDE RECORDS SUMMARY | 2024-07-28 20:06 | XMS_ITS | Encounter Summary ---
Author Organization [facility] Healthcare Address [address] [place] [address] Care Team Providers Care Electronics Computer Mechanic Name Role Phone Chaparro Harris MD Primary Care Provider [phone] Jeff Umanzor MD Unavailable [phone] Encounter Details Date Type Department Care Team (Late st Contact Info) Description 07/25/2024 Orders Only [facility] Diabetes Endocrine Care at [address] [place] [address] Ramiro Pinedo, [address] [place] [address] Vern's disease (Primary Dx) Social History Tobacco Use Types Packs/Day Years [...] on file Legal Sex Female 8:26 PM 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 Gender Identity Not on file Sexual Orientation Not on file documented as of this encounter Plan of Treatment Scheduled Orders Name Type Priority Associated Diagnoses Orde r Schedule T4, free Lab Routine Vern's disease Expected: 08/25/2024, Expires: 07/25/2025 TSH Lab Routine Vern's disease Expected: 08/25/2024, Expires: 07/25/2025 documented as of this encounter Visit Diagnoses Diagnosis Vern's disease- Primary Chronic lymphocytic thyroiditis documented in this encounter Care Teams Electronics Computer Mechanic Relationship Specialty Start Date End Date Chaparro Harris MD [address] [place] [address] PCP - General Family Medicine 10/01/21 Jeff Umanzor MD [address] [place] [address] Referring Physician Obstetrics and Gynecology 08/10/23 documented as of this encounter
--- OUTSIDE RECORDS SUMMARY | 2024-07-28 20:06 | XMS_ITS | Encounter Summary ---
Author Organization [facility] Healthcare Address [address] [place] [address] Care Team Providers Care Tile Burner Name Role Phone Chaparro Harris MD Primary Care Provider [phone] Jeff Umanzor MD Unavailable [phone] Reason for Visit * Reason Onset Date Comments Forms Request 07/25/2024 Encounter Details Date Type Department Care Team (Late st Contact Info) Description 07/25/2024 Telephone [facility] [address] [address] Blanca Christopher, RN Forms Request Social History Tobacco Use Types Packs/Day Years [...] on file Legal Sex Female 8:26 PM CHIEF MAINTENANCE SUPERVISOR Gender Identity Not on file Sexual Orientation Not on file documented as of this encounter Miscellaneous Notes * Telephone Encounter - Allyssa Jones - 07/28/2024 9:55 AM CST signed and faxed back. F MAINTENANCE SUPERVISOR * Telephone Encounter - Allyssa Jones - 07/25/2024 3:44 PM CST Placed in tray on [employer] desk for Signature. F MAINTENANCE SUPERVISOR * Telephone Encounter - Blanca Christopher RN - 07/25/2024 3:18 PM CST See 07/25/2024 Patient Message encounter. Forms printed, completed, and given to Allyssa for placement in the appropriate folder. F MAINTENANCE SUPERVISOR documented in this encounter Plan of Treatment Not on file documented as of this encounter Visit Diagnoses Not on filedocumented in this encounter Care Teams Tile Burner Relationship Specialty Start Date End Date Chaparro Harris MD [address] [place] [address] PCP - General Family Medicine 10/01/21 Jeff Umanzor MD [address] [place] [address] Referring Physician Obstetrics and Gynecology 08/10/23 documented as of this encounter
--- OUTSIDE RECORDS SUMMARY | 2024-07-28 20:06 | XMS_ITS | Encounter Summary ---
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
--- OUTSIDE RECORDS SUMMARY | 2024-07-28 20:06 | XMS_ITS | Clinical Summary ---
Author Organization 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 Medications No known medications Active Problems Problem Noted Date Diagnosed Date Iron deficiency anemia secondary to blood loss ( chronic) 09/01/2022 Iron deficiency anemia 03/28/2021 Other dietary vitamin B12 deficiency anemia 03/07 Mastodynia 06/05/2020 Fibrocystic breast changes of both breasts 06/05 Encounters Date Type Department Care Team Description 07/26/2024 External Device Data [facility] ABSTRACTION Provider, Abstract 06/07/2024 External Device Data [facility] ABSTRACTION Provider, Abstract 05/10/2024 External Device Data [facility] ABSTRACTION Provider, Abstract from Last 3 Months Family History Medical History Relation Name Comments Unknown Brother 1 Unknown Brother 2 Healthy Daughter 1 Healthy Daughter 2 Healthy Daughter 3 Asthma Father Unknown Father Asthma Mother Diabetes Mother Hypertension Mother Other Mother sepsis Unknown Paternal Grandfather Unknown Paternal Grandmother Unknown Sister 1 Unknown Sister 2 Healthy Son 1 Healthy Son 2 Breast Cancer Neg Hx Ovarian Cancer Neg Hx Relation Name Status Comments Brother 1 Alive Brother 2 Alive Daughter 1 Alive Daughter 2 Alive Daughter 3 Alive Father Alive Maternal Grandfather Maternal Grandmother Mother Paternal Grandfather Paternal Grandmother Sister 1 Alive Sister 2 Alive Son 1 Alive Son 2 Alive Social History Tobacco Use Types Packs/Day Years Used Date Smoking Tobacco: Never Smokeless Tobacco: Never Tobacco Cessation:Counseling Given: Not Answered Alcohol Use Standard Drinks/Week Comments No 0 (1 standard drink = 0.6 oz pur e alcohol) Comments No Sex and Gender Information Value Date Recorded Sex Assigned at Not on file Legal Sex Female 5:58 AM CASE SEALER Gender Identity Not on file Sexual Orientation Not on file Last Filed Vital Signs Vital Sign Reading Time Taken Comments Blood Pressure 114/84 04/06/2024 3:35 PM CDT Pulse 62 04/06/2024 3:35 PM CDT Temperature 36.8 ??C (98.2 ??F) 04/06/2024 3:35 PM CD T Respiratory Rate 16 04/06/2024 3:35 PM CDT Oxygen Saturation 97% 04/06/2024 3:35 PM CDT Inhaled Oxygen Concentration - - Weight 117 kg (258 lb) 04/06/2024 3:35 PM CDT Height 162.6 cm (5' 4 ) 07/24/2022 12:56 PM CASE SEALER Body Mass Index 44.29 07/24/2022 12:56 PM CASE SEALER Plan of Treatment Upcoming Encounters Date Type Department Care Team (Late st Contact Info) Description 10/05/2024 3:45 PM CDT Office Visit [facility] Oncology and Hematology [facility] [address] [email or web address] [address] [place] [address] Codey Angeles MD [address] [facility] [address] [place] [address] Health Maintenance Due Date Last Done Comments Pre-Diabetes and Diabetes Screening 1983 HEPATITIS B VACCINES (1 of 3 - 19+ 3-dose series) 2002 CERVICAL CANCER SCREENING 11/21/2023 11/20/2020 BREAST CANCER SCREENING 06/01/2024 06/01/20 23, 06/04/2022, 06/06/2021, Additional history exists DTAP/TDAP/TD VACCINES (3 - Td or Tdap) 05/26/2028 05/26/2018, 07/06/2017 INFLUENZA VACCINE Completed 05/06/2024, , 07/06/2022, Additional history exists HPV VACCINES Aged Out No longer eligi ble based on patient's age to complete this topic Procedures Procedure Name Priority Date/Time Associated Diagnosis Comments MAMMO DIAG BILAT 3D IZZY W OR WO CAD Routine 06/04/2022 2:53 PM CASE SEALER Mastodynia from Last 3 Months or Most Recently Relevant to Health Maintenance Results * MAMMO DIAG BILAT 3D IZZY W OR WO CAD (06/04/2022 2:53 PM CASE SEALER) Anatomical Region Laterality Modality Breast Bilateral Mammography 06/04/2022 2:53 PM CASE SEALER Impressions 06/04/2022 3:09 PM CASE SEALER IMPRESSION: No evidence of malignancy. RECOMMENDATIONS: Bilateral annual screening mammogram. OVERALL FINAL ASSESSMENT: BI-RADS CATEGORY 1: Negative DICTATION LOCATION: [facility] Narrative 06/04/2022 3:09 PM CASE SEALER MAMMOGRAPHY DIGITAL DIAGNOSTIC BILATERAL 3-D TOMOGRAPHY WITH CAD, 06/04/2022 HISTORY: Left breast pain. TECHNIQUE: Low-dose full-field digital tomosynthesis of bilateral breasts was performed with 2-D and 3-D acquisition. Computer aided diagnosis was also applied. COMPARISON: 06/06/2021 and 05/22/2020. FINDINGS: There are scattered fibroglandular tissues bilaterally. No new mass, malignant calcification or architectural distortion is identified. CAD was used. Procedure Note Silvia Jha MD - 06/04/2022 MAMMOGRAPHY DIGITAL DIAGNOSTIC BILATERAL 3-D TOMOGRAPHY WITH CAD, 06/04/2022 HISTORY: Left breast pain. TECHNIQUE: Low-dose full-field digital tomosynthesis of bilateral breasts was performed with 2-D and 3-D acquisition. Computer aided diagnosis was also applied. COMPARISON: 06/06/2021 and 05/22/2020. FINDINGS: There are scattered fibroglandular tissues bilaterally. No new mass, malignant calcification or architectural distortion is identified. CAD was used. IMPRESSION: No evidence of malignancy. RECOMMENDATIONS: Bilateral annual screening mammogram. OVERALL FINAL ASSESSMENT: BI-RADS CATEGORY 1: Negative DICTATION LOCATION: [facility] Arun Reina MD MAMMO ORDERABLES Final Result from Last 3 Months or Most Recently Relevant to Health Maintenance Insurance [facility] MEDICAID [facility] MEDICAID Care Teams Manufacturing Chief Engineer Relationship Specialty Start Date End Date Chaparro Harris MD [address] [place] [address] PCP - General Family Practice 02/27/23
--- OUTSIDE RECORDS SUMMARY | 2024-07-28 20:06 | XMS_ITS | Encounter Summary ---
Author Organization [facility] Healthcare Address [address] [place] [address] Care Team Providers Care Rotary Drill Operator Name Role Phone Chaparro Harris MD Primary Care Provider [phone] Jeff Umanzor MD Unavailable [phone] Encounter Details Date Type Department Care Team (Late st Contact Info) Description 07/26/2024 8:05 AM [facility] [address] [place] [address] Arrived Social History Tobacco Use Types Packs/Day Years [...] on file Legal Sex Female 8:26 PM ROCK DUSTER Gender Identity Not on file Sexual Orientation Not on file documented as of this encounter Plan of Treatment Pending Results Name Type Priority Associated Diagnoses Date /Time Dexamethasone Lab Routine 07/26/2024 8:06 AM R[facility] DUSTER documented as of this encounter Procedures Procedure Name Priority Date/Time Associated Diagnosis Comments CORTISOL Routine 07/26/2024 8:06 AM ROCK DUSTER documented in this encounter Results * (ABNORMAL) Cortisol (07/26/2024 8:06 AM ROCK DUSTER) Cortisol 0.8(L) 4.8 - 19.5 mcg/dl Comment: Interpretive Data Normal Range: ??4.8 - 19.5 mcg/dL; ??Evening: ??Half of morning value. ?? This analyte undergoes marked diurnal variation. ??Ranges indicated apply to morning specimens. ?? Current interpretive data was last revised 2018. Testing performed by: [facility], [address] [place] [address]., [facility] Blood 07/26/2024 8:06 AM ROCK DUSTER 07/26/2024 8:07 AM ROCK DUSTER us Ju Maldonado MD LAB BLOOD ORDERABLES Odalys l Result [facility] ([facility]) [facility] Department [place] [address] documented in this encounter Visit Diagnoses Not on filedocumented in this encounter Care Teams Rotary Drill Operator Relationship Specialty Start Date End Date Chaparro Harris MD [address] [place] [address] PCP - General Family Medicine 10/01/21 Jeff Umanzor MD [address] [place] [address] Referring Physician Obstetrics and Gynecology 08/10/23 documented as of this encounter
--- OUTSIDE RECORDS SUMMARY | 2024-07-28 20:06 | XMS_ITS | Clinical Summary ---
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 [...] loss Assessment & Plan (08/04/2022 4:53 PM FILM CLEANER): Not well controlled, continues to have significant [...] (11/26/2021): Added automatically from request for surgery [id number] 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 Assessment & Plan (09/10/2021 1:05 PM FILM CLEANER): Stable, well controlled; TSH at target Continue to check TSH related, no need for thyroid hormone at this time Assessment & Plan (06/25/2021 3:22 PM FILM CLEANER): Stable, well controlled; continues to follow with Endocrinology; last TSH was normal, ultrasound reviewed No current medications AME (generalized anxiety disorder) 05/26/2018 Assessment & Plan (06/14/2024 3:04 PM FILM CLEANER): Not well controlled, acutely worsened due to [...] BID Assessment & Plan (08/04/2022 4:52 PM FILM CLEANER): Not well controlled; worsening; patient reports multiple [...] daily Assessment & Plan (09/10/2021 1:04 PM FILM CLEANER): Not well controlled, continues to have elevated anxiety and panic attacks, severe anxiety associated with small health concerns Patient reports no relief previously with Lexapro sertraline Patient is unclear if she needs daily medications Continue bupropion 150 mg daily, Valium 5 mg nightly Assessment & Plan (06/25/2021 3:21 PM FILM CLEANER): Stable, improving; patient reports decreased panic attacks on sertraline Continue Zoloft 50 mg daily, hydroxyzine 25 mg t.i.d. p.r.n. for panic attacks Iron deficiency anemia ever agudelo to inadequate dietary iron intake 02/04/2018 Assessment & Plan (09/15/2022 5:09 PM CDT): Stable, patient has iron infusion scheduled Assessment & Plan (09/10/2021 1:04 PM FILM CLEANER): Stable, improving; no evidence of anemia or iron deficiency at this time; continue to monitor with regular CBCs Assessment & Plan (06/25/2021 3:22 PM FILM CLEANER): Follows with Hematology for iron infusions Low [...] w/r/t gut microbiome. Referred to ADA and [employer] websites for additional information on topics including glycemic index/carbohydrate choices, protein sources. 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 Assessment & Plan (06/25/2021 3:23 PM FILM CLEANER): Postsurgical changes, secondary to gastric sleeve in 2015 Continue to monitor vitamin deficiencies Continue with [...] been working on weight loss; follows with manager group, cutting back on coffee and trying to eat better Encourage 30 minutes moderate intensity exercise 5 days per week Assessment & Plan (09/10/2021 1:05 PM FILM CLEANER): Not well controlled, patient has history of gastric sleeve, continues to have bowel issues associated gastric sleeve No significant change in weight, patient has been working on weight loss reports no significant changes Assessment & Plan (06/25/2021 3:24 PM FILM CLEANER): Not well controlled; patient is status post [...] due to malabsorption. Placenta previa 03/30/2010 06/13/2021 Encounters Date Type Department Care Team Description 07/27/2024 2:30 PM FILM CLEANER Infusion [facility] [address] [facility] [address] [place] [phone] Other specified intestinal malabsorption (Primary Dx); Iron deficiency anemia secondary to inadequate dietary iron intake 07/26/2024 8:05 AM FILM CLEANER Lab [facility] [address] [place] [address] Arrived 07/25/2024 Telephone [facility] [address] [place] [address] Blanca Christopher, RN Forms Request 07/25/2024 Orders Only [facility] Diabetes Endocrine Care at [address] [place] [phone] Ramiro Pinedo, Vern's disease (Primary Dx) 07/21/2024 Telephone [facility] [address] [facility] [address] [place] [phone] Olga Sandoval RN 07/21/2024 Telephone [facility] [address] [facility] [address] [place] [phone] Chaparro Harris MD 07/20/2024 3:00 PM FILM CLEANER Office Visit [facility] Department of Otolaryngology Head-Neck Division [address] [place] [phone] Darline Messina PA Geographic tongue (Primary Dx); Other lesions of oral mucosa 07/18/2024 Telephone [facility] [address] [place] [address] Blanca Christopher, ALEXANDER Additional Services Or Orders 07/15/2024 Telephone [facility] [address] [place] [address] Jody Jordan RN 07/14/2024 11:15 AM FILM CLEANER Lab [facility] [address] [place] [address] 07/14/2024 10:55 AM FILM CLEANER Lab [facility] [address] [place] [address] Fatigue, unspecified type; Iron deficiency; Vitamin D deficiency; B12 deficiency 07/14/2024 Telephone [facility] [address] [facility] [address] [place] [address] Eneida Sandoval RN 07/12/2024 Orders Only [facility] Minimally Invasive Surgery [address] [facility] Medical Office Building [address] [place] [phone] Liana Bishop RN Gastroesophageal reflux disease without esophagitis (Primary Dx); Morbid obesity (HCC); S/P laparoscopic sleeve gastrectomy 07/12/2024 Telephone [facility] [address] [facility] 11th [place] [address] [place] [phone] [place], [place] 07/07/2024 Telephone [facility] [address] [place] [phone] Martha Stinson RN 06/15/2024 4:00 PM FILM CLEANER Office Visit [facility] Diabetes Endocrine Care at [address] [place] [phone] Ramiro Pinedo, DO Vern's disease 06/09/2024 9:45 AM FILM CLEANER Telemedicine [facility] [address] [phone] Chaparro Harris MD AME (generalized anxiety disorder) (Primary Dx) 06/08/2024 4:31 PM FILM CLEANER - 06/08/2024 11:59 PM FILM CLEANER Hospital Encounter [facility] Radiology [address] [place] [address] Screening mammogram, encounter for Discharge Disposition: Discharge to home or self care 05/30/2024 Telephone [facility] [address] [place] [phone] Jody Jordan RN 05/17/2024 Orders Only [facility] Sleep Medicine at [address] [place] [address] Thom Doyle MD Pseudotumor cerebri (Primary Dx) 05/17/2024 Orders Only [facility] Sleep Medicine at [address] [place] [address] Thom Doyle MD 05/10/2024 1:15 PM FILM CLEANER Office Visit [facility] [address] [place] [address] [address] [place] [address] Thom Doyle MD Chronic migraine without aura without status migrainosus, not intractable (Primary Dx) 05/05/2024 Telephone [facility] [address] [phone] Chaparro Harris MD Medication Problem from Last 3 Months Immunizations Name Administration Dates Next Due Influenza, Unspecified 06/02/2023,2021,08/21/2021(Deferred: Patient Refused),04/17/2021,04/16/2021(Deferred: Patient Refused),07/06/2020(Deferred: Patient Refused) Tdap 05/26/2018,07/06/2017 Surgical History Surgery Date Site/Laterality Comments [place] DELIVERY ONLY X 5 SLEEVE GASTROPLASTY 07/06/2015 - 07/05/2016 TUBAL LIGATION COLONOSCOPY 11/27/2021 LAPAROSCOPIC APPENDECTOMY BARIATRIC SURGERY Medical History Medical History Date Comments B12 deficiency Iron deficiency Fatigue History of nephrolithiasis 2016 Weight loss Hematuria Thyroid disease Vern's disease Headache Anxiety Placenta previa 03/30/2010 Anemia Chronic nausea 10/02/2022 GERD (gastroesophageal reflux disease) Migraines Family History Medical History Relation Name Comments No Known Problems Father Diabetes Mother Maria Eugenia Family history of diabetes mellitus - (Added by TW Conv) Hypertension Mother Maria Eugenia Family history of hypertension - (Added by TW Conv) Breast cancer Neg Hx Ovarian cancer Neg Hx Relation Name Status Comments Father Alive Mother Maria Eugenia (Age 64) Social History Tobacco Use Types Packs/Day Years [...] on file Legal Sex Female 8:26 PM FILM CLEANER Gender Identity Not on file Sexual Orientation Not on file Obstetrics History Para Term AB IAB SAB Ectopic Multiple Livin g Live Births 6 6 4 2 4 4 Date Outcome GA Total Labor Labor//3rd Weight Sex Type Anes PTL Sepideh A1 A5 Name Clin 1998 Term F CS-Cl assic al Livin g 2000 Demis e 2005 Term CS-LT ranv Livin g 2007 Term M CS-Cl assic al Livin g 2009 33w 5d 2.496 kg (5 lb 8 oz) M CS-Cl assic al Livin g 8 8 MAO ,BABY BOY MICHELLE Tomás Trejo MD Delivery Location:[facility] 2011 Term C-Sec tion Last Filed Vital Signs Vital Sign Reading Time Taken Comments Blood Pressure 120/74 07/27/2024 2:21 PM FILM CLEANER Pulse 78 07/27/2024 2:21 PM FILM CLEANER Temperature 36.4 ??C (97.5 ??F) 07/27/2024 2:21 PM CS T Respiratory Rate 18 07/27/2024 2:21 PM FILM CLEANER Oxygen Saturation 99% 07/27/2024 2:21 PM FILM CLEANER Inhaled Oxygen Concentration - - Weight 119.3 kg (263 lb) 07/20/2024 2:32 PM FILM CLEANER Height 162.6 cm (5' 4 ) 07/20/2024 2:32 PM FILM CLEANER Body Mass Index 45.14 07/20/2024 2:32 PM FILM CLEANER Plan of Treatment Health Maintenance Due Date Last Done Comments Cervical Cancer Screening 1983 Pneumococcal vaccine <65 (1 of 2 - PCV) 1989 Varicella Vaccines (1 of 2 - 13+ 2-dose series) 1996 Regular Well Visit/Exam 18-64 2001 Depression Screening 12/16/2024 12/17/2023, 06/02/2023, 12/05/2022, Additional history exists Breast Cancer Screening-Mammogram 06/08/2025 06/08/2024, 06/01/2023, 06/01/2023, Additional history exists DTaP/Tdap/Td Vaccine (3 - Td or Tdap) 05/26/2028 05/26/2018, 07/06/2017 Hepatitis C Screening Completed 10/12/2023 Hepatitis B Screening Completed 12/16/2023 Influenza Vaccine Completed 05/16/2024, , 04/14/2022, Additional history exists HPV Vaccines Aged Out No longer eligi ble based on patient's age to complete this topic Procedures Procedure Name Priority Date/Time Associated Diagnosis Comments CORTISOL Routine 07/26/2024 8:06 AM FILM CLEANER FOLATE Routine 07/14/2024 11:30 AM FILM CLEANER EGFR Routine 07/14/2024 11:10 AM FILM CLEANER IODINE SERUM,PLASMA Routine 07/14/2024 1 1:10 AM FILM CLEANER TSH Routine 07/14/2024 11:10 AM FILM CLEANER THYROID PEROXIDASE ANTIBODY Routine 07/14/2024 11:10 AM FILM CLEANER TESTOSTERONE, TOTAL AND FREE, SERUM Routine 07/14/2024 11:10 AM FILM CLEANER T4, FREE Routine 07/14/2024 11:10 AM FILM CLEANER T3, FREE Routine 07/14/2024 11:10 AM FILM CLEANER PROGESTERONE Routine 07/14/2024 11:10 AM FILM CLEANER LUTEINIZING HORMONE (LH) Routine 07/14/2024 11:10 AM FILM CLEANER LIPID PANEL Routine 07/14/2024 11:10 AM FILM CLEANER INSULIN, TOTAL Routine 07/14/2024 11:10 AM FILM CLEANER HEMOGLOBIN A1C Routine 07/14/2024 11:10 AM FILM CLEANER FOLLICLE STIMULATING HORMONE Routine 07/14/2024 11:10 AM FILM CLEANER ESTRADIOL Routine 07/14/2024 11:10 AM FILM CLEANER DHEA-SULFATE Routine 07/14/2024 11:10 AM FILM CLEANER COMPREHENSIVE METABOLIC PANEL Routine 07/14/2024 11:10 AM FILM CLEANER ACTH Routine 07/14/2024 11:10 AM FILM CLEANER DIFFERENTIAL AUTO Routine 07/14/2024 10: 52 AM FILM CLEANER Iron deficiency VITAMIN B12 Routine 07/14/2024 10:52 AM FILM CLEANER B12 deficiency VITAMIN D 25 HYDROXY Routine 07/14/2024 10:52 AM FILM CLEANER Vitamin D deficiency CBC WITH AUTO DIFFERENTIAL Routine 07/14/2024 10:52 AM FILM CLEANER Iron deficiency IRON PROFILE W/ IBC Routine 07/14/2024 1 0:52 AM FILM CLEANER Iron deficiency FERRITIN Routine 07/14/2024 10:52 AM FILM CLEANER Iron deficiency ZINC Routine 07/14/2024 10:52 AM FILM CLEANER Fatigue, unspecified type SCREENING MAMMOGRAM BILATERAL W BRIAN Schedule Routine, Read Routine (OP Routine) 06/08/2024 4:56 PM FILM CLEANER Screening mammogram, encounter for HEPATITIS C ANTIBODY Routine 10/12/2023 9:08 AM CDT Screening for STDs (sexually transmitted diseases) from Last 3 Months or Most Recently Relevant to Health Maintenance Results * (ABNORMAL) Cortisol (07/26/2024 8:06 AM FILM CLEANER) Cortisol 0.8(L) 4.8 - 19.5 mcg/dl Comment: Interpretive Data Normal Range: ??4.8 - 19.5 mcg/dL; ??Evening: ??Half of morning value. ?? This analyte undergoes marked diurnal variation. ??Ranges indicated apply to morning specimens. ?? Current interpretive data was last revised 2018. Testing performed by: [address], [id number] Blood 07/26/2024 8:06 AM FILM CLEANER 07/26/2024 8:07 AM FILM CLEANER Ju Maldonado MD LAB BLOOD ORDERABLES Odalys l Result Performing Organization Address [facility] Co de Phone Number CATRINA MULLER KEKE) [address] [facility] [place] [address] * Folate (07/14/2024 11:30 AM FILM CLEANER) Pathologist [facility] [place] Folic acid 7.9 >=5.0 ng/mL Comment: Hemolysis present. ??Results may be affected. Testing performed by: [address] [id number] Blood 07/14/2024 11:3 0 AM FILM CLEANER 07/14/2024 1:26 PM FILM CLEANER Ju Maldonado MD LAB BLOOD ORDERABLES Odalys l Result Performing Organization Address City/[facility]/ZIP Co de Phone Number [facility] (NASH) 1 [facility] [place] [address] * eGFR (07/14/2024 11:10 AM FILM CLEANER) eGFR >90 >=60 mL/min/1. 73 m2 Comment: [...] was last reviewed 2021. Testing performed by: [facility], [address] [place] [address], [place]., [id number] Blood 07/14/2024 11:1 0 AM FILM CLEANER 07/14/2024 10:41 PM FILM CLEANER us Ju Maldonado MD LAB BLOOD ORDERABLES Odalys jennings Result CATRINA MULLER (NASH) [address] [facility] Department [place] [address] * Iodine serum, plasma (07/14/2024 11:10 AM FILM CLEANER) Pathologist [facility] [place] Iodine 52 40 - 92 ng/mL Issue ref Lab Comment: ADDITIONAL INFORMATION This test was developed and its performance characteristics determined by [facility] in a manner consistent with CLIA requirements. This test has not been cleared or approved by the U.S. Food and Drug Administration. Test Performed by: [facility] [address] [place] [address] Staff Psychologist: Kojo Alvarenga Ph.D.; CLIA# [id number] Testing performed by: [facility], [address] [place] [address]., [id number] Blood 07/14/2024 11:1 0 AM FILM CLEANER 07/14/2024 10:34 PM FILM CLEANER Ju Maldonado MD LAB BLOOD ORDERABLES Odalys l Result Performing Organization Address City/[facility]/ZIP Co de Phone Number [facility] (NASH) [address] [place] [address] [place] [address] Solomon ref Lab * (ABNORMAL) Thyroid peroxidase antibody (TPO) (07/14/2024 11:10 AM FILM CLEANER) Anti Thyroid Peroxidase 434(H) <=34 IUnits/mL Comment: ATPO Interpretive Data Results may be up to 28% higher in patients receiving Itraconazole. Current interpretive data was last revised 2020. Testing performed by: [facility], [address] [place] [address], [id number] Blood 07/14/2024 11:1 0 AM FILM CLEANER 07/15/2024 10:04 AM FILM CLEANER Ju Maldonado MD LAB BLOOD ORDERABLES Odalys l Result [facility] (NASH) [address] [place] [address] [place] [address] * Progesterone (07/14/2024 11:10 AM FILM CLEANER) Progesterone 2.35 ng/mL Comment: Interpretive Data Males: ?<0.15 ng/mL Females: ??Follicular ?<0.20 ng/mL ??Ovulation ? <4.1 ng/mL ??Luteal ?4.1 - ??14.5 ng/mL ??1st Trimester ?? 11.0 - ??44.0 ng/mL ??2nd Trimester ?? 25.0 - ??83.0 ng/mL ??3rd Trimester ?? 59.0 - 214.0 ng/mL ??Postmenopausal ??<0.13 ng/mL Current interpretive data was last revised 2021. Testing performed by: [facility], [address] [place] [address], [id number] Blood 07/14/2024 11:1 0 AM FILM CLEANER 07/15/2024 10:04 AM FILM CLEANER Ju Maldonado MD LAB BLOOD ORDERABLES Odalys l Result Performing Organization Address City/[facility]/ZIP Co de Phone Number [facility] (NASH) [address] [place] [address] [place] [address] * (ABNORMAL) Insulin, total (07/14/2024 11:10 AM FILM CLEANER) Insulin 28.0(H) 2.6 - 25.0 mcIUnit/mL Comment:Testing performed by : [facility], [address] [place] [address]., [id number] Blood 07/14/2024 11:1 0 AM FILM CLEANER 07/15/2024 10:04 AM FILM CLEANER Ju Maldonado MD LAB BLOOD ORDERABLES Odalys l Result [facility] (KEKE) 1 [facility] [place] [address] * DHEA-sulfate (07/14/2024 11:10 AM FILM CLEANER) Pathologist [facility] [place] DHEA-S 73.5 60.9 - 337.0 mcg/dL Comment:Testing performed by : [facility], [address] [place] [address]., [id number] Blood 07/14/2024 11:1 0 AM FILM CLEANER 07/15/2024 10:04 AM FILM CLEANER Ju Maldonado MD LAB BLOOD ORDERABLES Odalys l Result [facility] (NASH) [address] [facility] [place] [address] * Estradiol (07/14/2024 11:10 AM FILM CLEANER) [facility] Estradiol 210.0 pg/mL Comment: Interpretive Data Males: 11 ? 43 pg/mL Females: Premenopausal: 31 ? 533 pg/mL Postmenopausal: < 50 pg/mL Patients treated with Fluvestrant (Faslodex) should be tested using an alternate assay such as LC-MS due to potential for cross-reactivity. Estradiol varies widely throughout the menstrual cycle. Current interpretive data was last revised 2024. Testing performed by: [facility], [address] [place] [address]., [id number] Blood 07/14/2024 11:1 0 AM FILM CLEANER 07/15/2024 10:04 AM FILM CLEANER Ju Maldonado MD LAB BLOOD ORDERABLES Odalys l Result [facility] (KEKE) [address] [facility] [place] [address] * ACTH (07/14/2024 11:10 AM FILM CLEANER) [facility] ACTH 7.9 7.0 - 63.0 pg/mL Comment:Testing performed by : [facility], [address] [place] [address], [place]., [id number] Blood 07/14/2024 11:1 0 AM FILM CLEANER 07/15/2024 10:01 AM FILM CLEANER Ju Maldonado MD LAB BLOOD ORDERABLES Odalys jennings Result Performing Organization Address [facility] Co de Phone Number CATRINA MULLER (KEKE) [address] [facility] Department [place] [address] * (ABNORMAL) Testosterone, Total and Free, Serum (07/14/2024 11:10 AM FILM CLEANER) Testosterone 95(H) 8 - 60 ng/dL [facility] Lab Comment: ADDITIONAL INFORMATION Testing performed by Liquid Chromatography-Tandem Mass Spectrometry (LC-MS/MS). This test was developed and its performance characteristics determined by [facility] in a manner consistent with CLIA requirements. This test has not been cleared or approved by the U.S. Food and Drug Administration. Test Performed by: [facility] [place] [address] Staff Psychologist: Kojo Alvarenga Ph.D.; CLIA# [id number] Testing performed by: [facility], [address] [place] [address]., [id number] Testosterone, free 1.27(H) <0.13 - 0.98 ng/dL CATRINA MULLER (KEKE) Comment: ADDITIONAL INFORMATION This test was developed and its performance characteristics determined by [facility] in a manner consistent with CLIA requirements. This test has not been cleared or approved by the U.S. Food and Drug Administration. Testing performed by: [facility], [address] [place] [address]., [id number] Blood 07/14/2024 11:1 0 AM FILM CLEANER 07/14/2024 10:34 PM FILM CLEANER Ju Maldonado MD LAB BLOOD ORDERABLES Odalys jennings Result Performing Organization Address City/[facility] Co de Phone Number CATRINA MULLER (KEKE) 1 [facility] [place] [address] Solomon ref Lab * T3, free (07/14/2024 11:10 AM FILM CLEANER) Free T3 2.5 2.0 - 4.4 pg/mL Comment:Testing performed by : [facility], [address] [place] [address], [id number] Blood 07/14/2024 11:1 0 AM FILM CLEANER 07/14/2024 11:10 AM FILM CLEANER us Ju Maldonado MD LAB BLOOD ORDERABLES Odalys l Result Performing Organization Address [facility]/ZIP Co de Phone Number CATRINA MULLER (NASH) 1 [facility] [place] [address] * TSH (07/14/2024 11:10 AM FILM CLEANER) Pathologist [facility] Thyroid Stimulating Hormone 3.45 0.30 - 4.20 mcIUnit/mL Comment:Testing performed by : [facility], [address] [place] [address], [id number] Blood 07/14/2024 11:1 0 AM FILM CLEANER 07/14/2024 11:10 AM FILM CLEANER us Ju Maldonado MD LAB BLOOD ORDERABLES Odalys l Result Performing Organization Address City/[facility]/ZIP Co de Phone Number CATRINA MULLER (NASH) [address] [facility] Department of Laboratories [place] [phone] * (ABNORMAL) T4, free (07/14/2024 11:10 AM FILM CLEANER) Free T4 0.88(L) 0.90 - 1.70 ng/dL Comment:Testing performed by : [facility], [address] [place] [address], [id number] Blood 07/14/2024 11:1 0 AM FILM CLEANER 07/14/2024 11:10 AM FILM CLEANER us Ju Maldonado MD LAB BLOOD ORDERABLES Odalys l Result Performing Organization Address [facility] Co de Phone Number CATRINA MULLER (NASH) [address] [place] [address] * (ABNORMAL) Hemoglobin A1c (07/14/2024 11:10 AM FILM CLEANER) [facility] Hgb A1C 7.0(H) 4.0 - 5.6 % Comment:Testing performed by : [facility], [address] [place] [address]., [id number] Estimated Average Glucose 154 mg/dL CATRINA MULLER (NASH) Comment: The ADA recommends reporting an estimated Average Glucose (eAG) with all Hemoglobin A1c results using the equation derived from a study of 507 normal and diabetic adults. ??Minority populations were underrepresented and children were not included. ?? (Diabetes Care 31:4988-2665, 2008). ??The eAG is not equivalent to a fasting glucose. Testing performed by: [facility], [address] [place] [address]., [id number] Blood 07/14/2024 11:1 0 AM FILM CLEANER 07/14/2024 11:11 AM FILM CLEANER Ju Maldonado MD LAB BLOOD ORDERABLES Odalys l Result Performing Organization Address [facility] Co de Phone Number CATRINA MULLER (NASH) 1 [facility] [place] [address] * LH (07/14/2024 11:10 AM FILM CLEANER) Pathologist [facility] LH 14.1 IUnits/L Comment: Interpretive Data Males: ??Adults: ? 1.7 - 8.6 ?? IUnits/L Females: ?Follicular: ? 2.4 - 12.6 ??IUnits/L ??Ovulation: ? 14.0 - 95.6 ??IUnits/L ?Luteal: ? 1.0 - 11.4 ??IUnits/L ??Postmenopausal: 7.7 - 58.5 ??IUnits/L Current interpretive data was last revised on 2018. Testing performed by: [facility], [address] [place]., [address] Blood 07/14/2024 11:1 0 AM FILM CLEANER 07/15/2024 10:04 AM FILM CLEANER Ju Maldonado MD LAB BLOOD ORDERABLES Odalys l Result CATRINA MULLER (NASH) 1 [facility] [place] [address] * Follicle stimulating hormone (07/14/2024 11:10 AM FILM CLEANER) FSH 2.7 IUnits/L Comment: Interpretive Data Male: Adults: ?1.5 - 12.4 IUnits/L Female: ?? Follicular: ?3.5 - 12.5 IUnits/L Ovulation: ? 4.7 - 21.5 IUnits/L Luteal: ?1.7 - 7.7 IUnits/L Postmenopausal: 25.8 - 134.8 IUnits/L Current interpretive data was last revised 2015. Testing performed by: [facility], [address] [place]., [address] Blood 07/14/2024 11:1 0 AM FILM CLEANER 07/15/2024 10:04 AM FILM CLEANER Ju Maldonado MD LAB BLOOD ORDERABLES Odalys l Result Performing Organization Address City/[facility]/ZIP Co de Phone Number CATRINA MULLER (NASH) 1 [facility] [place] [address] * (ABNORMAL) Lipid panel (07/14/2024 11:10 AM FILM CLEANER) Cholesterol 224(H) 30 - 199 mg/dL Comment: [...] last revised on 2018. Testing performed by: [address] [address] Triglycerides 91 <=149 mg/dL CATRINA MULLER (KEKE) [...] last revised on 2018. Testing performed by: [facility], [address] [place] [address]., [address] HDL 66 >=40 mg/dL CATRINA MULLER (KEKE) [...] last revised on 2018. Testing performed by: [facility], [address] [place] [address]., [address] LDL, calculated 142(H) <=129 mg/dL CATRINA MULLER [...] last revised on 2024. Testing performed by: [facility], [address] [place] [address]., [address] Non-HDL Cholesterol 158 mg/dL CATRINA MULLER (KEKE) [...] last revised on 2018. Testing performed by: [address] [address] Chol/HDL ratio 3 LAURENE Matias MULLER (KEKE) Comment:Testing performed by : [address], [address] Blood 07/14/2024 11:1 0 AM FILM CLEANER 07/14/2024 11:10 AM FILM CLEANER us Ju Maldonado MD LAB BLOOD ORDERABLES Odalys jennings Result CATRINA MULLER (KEKE) 1 [facility] [place] [address] * (ABNORMAL) Comprehensive metabolic panel (07/14/2024 11:10 AM FILM CLEANER) Sodium 138 135 - 145 mmol/L Comment:Testing performed by : [address] [address] Potassium, pl 4.3 3.3 - 4.9 mmol/L CATRINA MULLER (KEKE) Comment:Testing performed by : [address] [address] Chloride 102 97 - 110 mmol/L CATRINA MULLER (KEKE) Comment:Testing performed by : [address] [address] CO2 24 22 - 32 mmol/L CATRINA MULLER (KEKE) Comment:Testing performed by : [facility], [address], [place]., [address] Anion gap 12 2 - 15 mmol/L [facility] ([facility]) Comment:Testing performed by : [address] [address] BUN 14 6 - 25 mg/dL [facility] ([facility]) Comment:Testing performed by : [address] [address] Creatinine 0.60 0.60 - 1.10 mg/dL [facility] ([facility]) Comment:Testing performed by : [address], [address] Glucose 109 70 - 199 mg/dL CERNER [...] was last revised 2022. Testing performed by: [address] [address] Calcium 8.9 8.5 - 10.3 mg/dL [facility] ([facility]) Comment:Testing performed by : [address] [address] Bilirubin, total 0.3 0.1 - 1.2 mg/dL [facility] ([facility]) Comment:Testing performed by : [address], [address] Protein, pl 7.3 6.5 - 8.5 g/dL [facility] ([facility]) Comment:Testing performed by : [address] [address] Albumin 4.0 3.5 - 5.0 g/dL [facility] ([facility]) Comment:Testing performed by : [address], [address] Alk phos 96 40 - 130 Units/L [facility] ([facility]) Comment:Testing performed by : [address], [place]., [address] ALT 67(H) 7 - 45 Units/L [facility] ([facility]) Comment:Testing performed by : [facility], [address] [place] [address], [address] AST 68(H) 10 - 45 Units/L [facility] ([facility]) Comment:Testing performed by : [facility], [address] [place] [address], [address] Blood 07/14/2024 11:1 0 AM FILM CLEANER 07/14/2024 11:10 AM FILM CLEANER us Ju Maldonado MD LAB BLOOD ORDERABLES Odalys jennings Result [facility] ([facility]) 1 [facility] [place] [address] * Differential, auto (07/14/2024 10:52 AM FILM CLEANER) Neutrophil abs 4.0 1.5 - 6.5 K/cumm Comment:Testing performed by : [facility], [address] [place] [address]., [address] Imm gran abs 0.0 0.0 - 0.1 K/cumm [facility] ([facility]) Comment:Testing performed by : [address], [address] Lymphocyte abs 1.8 0.8 - 3.3 K/cumm [facility] ([facility]) Comment:Testing performed by : [address], [address] Monocyte abs 0.5 0.2 - 0.8 K/cumm [facility] ([facility]) Comment:Testing performed by : [address], [address] Eosinophil abs 0.1 0.0 - 0.5 K/cumm [facility] ([facility]) Comment:Testing performed by : [address], [address] Basophil abs 0.1 0.0 - 0.1 K/cumm [facility] ([facility]) Comment:Testing performed by : [facility], [address], [place]., [address] Neutrophil pct 62.5 % [facility] ([facility]) Comment: Interpretive Data Percent cell count reference ranges are not reported, since discordance with absolute values may lead to misinterpretation of CBC data. Current Interpretive Data was last revised on 2017. Testing performed by: [facility], [address] [place] [address]., [address] Imm gran pct 0.3 % [facility] ([facility]) Comment: Interpretive Data Percent cell count reference ranges are not reported, since discordance with absolute values may lead to misinterpretation of CBC data. Current Interpretive Data was last revised on 2017. Testing performed by: [facility], [address] [place] [address]., [address] Lymphocyte pct 28.1 % [facility] ([facility]) Comment: Interpretive Data Percent cell count reference ranges are not reported, since discordance with absolute values may lead to misinterpretation of CBC data. Current Interpretive Data was last revised on 2017. Testing performed by: [facility], [address] [place] [address]., [address] Monocyte pct 7.1 % [facility] ([facility]) Comment: Interpretive Data Percent cell count reference ranges are not reported, since discordance with absolute values may lead to misinterpretation of CBC data. Current Interpretive Data was last revised on 2017. Testing performed by: [facility], [address] [place] [address]., [address] Eosinophil pct 1.1 % [facility] ([facility]) Comment: Interpretive Data Percent cell count reference ranges are not reported, since discordance with absolute values may lead to misinterpretation of CBC data. Current Interpretive Data was last revised on 2017. Testing performed by: [address] [address] Basophil pct 0.9 % [facility] ([facility]) Comment: Interpretive Data Percent cell count reference ranges are not reported, since discordance with absolute values may lead to misinterpretation of CBC data. Current Interpretive Data was last revised on 2017. Testing performed by: [facility], [address] [place] [address]., [address] Blood 07/14/2024 10:5 2 AM FILM CLEANER 07/14/2024 10:42 PM FILM CLEANER Chaparro Harris MD LAB BLOOD ORDERABLES Odalys l Result Performing Organization Address [facility] Co de Phone Number CATRINA MULLER (NASH) 1 [facility] [place] [address] * (ABNORMAL) Iron profile w/ IBC (07/14/2024 10:52 AM FILM CLEANER) [facility] Iron 39 35 - 145 mcg/dl Comment:Testing performed by : [facility], [address] [place] [address], [address] TIBC 380 250 - 400 mcg/dL [facility] ([facility]) Comment:Testing performed by : [address], [address] Transferrin saturation 10(L) 20 - 50 % [facility] (KE[facility]) Comment:Testing performed by : [address], [address] Blood 07/14/2024 10:5 2 AM FILM CLEANER 07/14/2024 10:42 PM FILM CLEANER Chaparro Harris MD LAB BLOOD ORDERABLES Odalys l Result Performing Organization Address [facility] Co de Phone Number CATRINA MULLER (NASH) 1 [facility] [place] [address] * (ABNORMAL) CBC with auto differential (07/14/2024 10:52 AM FILM CLEANER) [facility] WBC 6.3 3.8 - 9.9 K/cumm Comment:Testing performed by : [address] [address] Hgb 10.6(L) 11.9 - 15.5 g/dL [facility] ([facility]) Comment:Testing performed by : [address], [address] Hct 36.5 35.6 - 45.5 % [facility] ([facility]) Comment:Testing performed by : [address], [address] Plt 334 150 - 400 K/cumm [facility] ([facility]) Comment:Testing performed by : [facility], [address] [place] [address], [address] MPV 10.2 9.1 - 12.3 fL [facility] ([facility]) Comment:Testing performed by : [facility], [address] [place] [address], [address] RBC 4.31 3.90 - 5.20 M/cumm [facility] ([facility]) Comment:Testing performed by : [facility], [address] [place] [address], [address] MCV 84.7 81.3 - 96.4 fL [facility] ([facility]) Comment:Testing performed by : [address], [address] MCH 24.6(L) 27.1 - 33.3 pg [facility] ([facility]) Comment:Testing performed by : [address], [address] MCHC 29.0(L) 32.3 - 35.7 g/dL [facility] ([facility]) Comment:Testing performed by : [address], [address] RDW CV 14.6 11.1 - 14.9 % [facility] ([facility]) Comment:Testing performed by : [address], [address] RDW SD 45.3 35.7 - 48.1 fL [facility] ([facility]) Comment:Testing performed by : [address], [address] NRBC abs 0.00 0.00 - 0.01 K/cumm [facility] ([facility]) Comment:Testing performed by : [address], [address] Blood 07/14/2024 10:5 2 AM FILM CLEANER 07/14/2024 10:42 PM FILM CLEANER Narrative [facility] ([facility]) - 07/14/2024 10:58 PM FILM CLEANER fax to [phone] us Chaparro Harris MD LAB BLOOD ORDERABLES Odalys jennings Result CATRINA MULLER (KEKE) 1 [facility] [place] [address] * Zinc (07/14/2024 10:52 AM FILM CLEANER) Zinc 75 60 - 106 mcg/dL [facility] ref Lab Comment: ADDITIONAL INFORMATION This test was developed and its performance characteristics determined by [facility] in a manner consistent with CLIA requirements. This test has not been cleared or approved by the U.S. Food and Drug Administration. Test Performed by: [address] [address] Staff Psychologist: Kojo Alvarenga Ph.D.; CLIA# [id number] Testing performed by: [address], [address] Blood 07/14/2024 10:5 2 AM FILM CLEANER 07/14/2024 10:42 PM FILM CLEANER Chaparro Harris MD LAB BLOOD ORDERABLES Odalys l Result Performing Organization Address [facility] de Phone Number CATRINA MULLER (NASH) [address] [place] [address] Issue ref Lab * Vitamin D 25 hydroxy (07/14/2024 10:52 AM FILM CLEANER) Pathologist [facility] [place] Vitamin D 25-OH 30 30 - 80 ng/mL Comment:Testing performed by : [facility], [address] [place] [address]., [address] Blood 07/14/2024 10:5 2 AM FILM CLEANER 07/14/2024 10:42 PM FILM CLEANER Chaparro Harris MD LAB BLOOD ORDERABLES Odalys l Result Performing Organization Address [facility] Co de Phone Number CATRINA MULLER (KEKE) [address] [place] [address] * Ferritin (07/14/2024 10:52 AM FILM CLEANER) Ferritin 15 15 - 150 ng/mL Comment:Testing performed by : [facility], [address] [place] [address], [address] Blood 07/14/2024 10:5 2 AM FILM CLEANER 07/14/2024 10:42 PM FILM CLEANER Chaparro Harris MD LAB BLOOD ORDERABLES Odalys l Result Performing Organization Address City/[facility] Co de Phone Number [facility] KE[facility]) 1 [facility] [place] [address] * Vitamin B12 (07/14/2024 10:52 AM FILM CLEANER) Vitamin B12 492 230 - 1,250 pg/mL Comment:Testing performed by : [facility], [address] [place] [address], [address] Blood 07/14/2024 10:5 2 AM FILM CLEANER 07/14/2024 10:42 PM FILM CLEANER Chaparro Harris MD LAB BLOOD ORDERABLES Odalys l Result Performing Organization Address [facility] de Phone Number [facility] NASH) 1 [facility] [place] [address] * Screening Mammogram Bilateral W Brian (06/08/2024 4:56 PM FILM CLEANER) Anatomical Region Laterality Modality Breast Bilateral Mammography 06/09/2024 11:3 5 AM FILM CLEANER Impressions 06/09/2024 11:35 AM FILM CLEANER No evidence of malignancy in either breast. FINAL ASSESSMENT: BI-RADS Category 1: Negative. RECOMMENDATION: Recommend return for annual screening mammogram in 12 months. ?? Electronically signed by: Sonya Olsen M.D. Narrative 06/09/2024 11:35 AM FILM CLEANER EXAMINATION: BILATERAL SCREENING MAMMOGRAM COMPARISON: All prior [...] 9:08 AM CDT 10/12/2023 2:28 PM CDT Shivani Manning MD LAB MICROBIOLOGY - GENERAL O RDERABLES Final Result [facility] [address] [place] [address] from Last 3 Months or Most Recently Relevant to Health Maintenance Insurance [facility] Advance Directives For more information, please contact: [phone] * Full Code (Latest Code Status on File) Date Activated Date Inactivated Comments 11/27/2021 8:51 AM 11/27/2021 4:54 PM * Full Code Date Activated Date Inactivated Comments 11/27/2021 8:51 AM 11/27/2021 8:51 AM * Full Code Date Activated Date Inactivated Comments 02/09/2019 1:46 PM 02/09/2019 7:27 PM Care Teams Mmi Teacher Relationship Specialty Start Date End Date Chaparro Harris MD [address] [place] [address] PCP - General Family Medicine 10/01/21 Jeff Umanzor MD [address] [place] [address] Referring Physician Obstetrics and Gynecology 08/10/23
== END 2024-07-26 16:44 | disposition home or self-care (01) ==
PROVIDERS: PCP Hospitalist; Visit Provider Internal Medicine Endocrinology, Diabetes & Metabolism
DX: E06.3 Autoimmune thyroiditis (principal); E04.9 Nontoxic goiter, unspecified
CPT/HCPCS: 76536

== ENCOUNTER 2024-08-02 16:39 | Outpatient (CLI) | payer OTHER, SELFPAY ==
--- NOTE | ~2024-08-02 | US_ITS ---
EXAMINATION: US pelvic complete w TV DATE: 08/02/2024 17:38 INDICATION: Unspecified ovarian cyst, unspecified side. Pelvic and perineal pain. TECHNIQUE: Multiple transabdominal and transvaginal sonographic images of the pelvis were obtained. COMPARISON: Ultrasound 01/30/2023, CT abdomen and pelvis 04/07/2022 FINDINGS: TRANSABDOMINAL ULTRASOUND: The uterus measures 10.7 x 3.6 x 5.6 cm. There is no free fluid in the pelvis. TRANSVAGINAL ULTRASOUND: The endometrial complex measures 10 mm in thickness. There are nabothian cysts in the cervix. The rig ht ovary is not visualized. The left ovary measures 2.9 x 1.4 x 2.9 cm. IMPRESSION: 1. Normal left ovary. Right ovary not visualized. Reviewed, dictated and finalized at location A. L OPERATOR AUTOMATIC
--- OUTSIDE RECORDS SUMMARY | 2024-08-02 16:42 | XMS_ITS | Patient Health Record ---
Author Organization [facility] Address [address] [address] Care Team Providers Care Rn Clinical Name Role Phone Ju Maldonado Primary Care Provider Reason For Referral No Information Medications Medication SIG (Take, Route, Frequency, Duration) Notes Start Date End Date Status Mounjaro 5 MG/0.5ML inject 5 mg Subcutan eous weekly for 90 days 07/25/2024 Active Liraglutide 18 MG/3ML inject 0.6 mg gianna y x 1 week then increase to 1.2 mg Subcutaneous daily for 90 days 07/27/2024 Active Unithroid 75 MCG 1 tablet in the morn ing on an empty stomach Orally Once a day for 90 days 07/25/2024 Active Mounjaro 2.5 MG/0.5ML inject 2.5 mg Subcutaneous weekly for 30 days 07/25/2024 Active Verifine Insulin Pen Needle 32G X 6 MM inject victoza once daily, ok to use whatever insurance is willing to cover for 90 days 07/27/2024 Active dexAMETHasone 1 MG 1 tablet Orally at 1 0 pm night before 8 am cortisol for 1 days 07/12/2024 Active Norethindrone 0.35 MG 1 tablet Orally On ce a day for 90 days 07/25/2024 Active Problems Problem Type SNOMED Code ICD Code Onset Dates Problem Status W/U Status Risk Notes Problem Vitamin D deficiency (47735151) Vitamin D deficiency, unspecified (E55.9) Active confirmed Problem Hyperglycemia due to type 2 diabetes mellitus (202902490147198) Type 2 diabetes mellitus with hyperglycemia (E11.65) Active confirmed Problem Hyperlipidemia (91229788) Hyperlipidemia, unspecified (E78.5) Active confirmed Problem Hypothyroidism (12194978) Hypothyroidism, unspecified (E03.9) Active confirmed Problem Obesity (444739251) Obesity, unspecified (E66.9) Active confirmed Problem 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, unspecified (E04.9) Active confirmed Problem Autoimmune thyroiditis (55186591) 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) Active confirmed Problem Polycystic ovarian syndrome (E28.2) Active confirmed Vital Signs Heart Rate 78 /min 07/25/2024 Respiratory Rate 12 /min 07/25/2024 Blood pressure diastolic 80 mm Hg 07/25/2024 Height 65 in 07/25/2024 Blood pressure systolic 130 mm Hg 07/25/2024 Weight 260 lbs 07/25/2024 BMI 43.26 kg/m2 07/25/2024 Encounters Encounter Location Date Provider Diagnosis [facility] [address] [place] [address] 07/12/2024 Ju [facility] [address] [place] [address] 07/14/2024 Ju Maldonado Obesity, unspecified E66.9 [facility] - Ju Qumulo [address] [place] [address] 07/25/2024 Ju Maldonado [facility] [address] [place] [address] 07/26/2024 Ju Maldonado [facility] - Ju Maldonado [address] [place] [address] 07/26/2024 Ju Maldonado Type 2 diabetes mellitus with hyperglycemia E11.65 [facility] - Ju Maldonado [address] [place] [address] 08/01/2024 Ju Maldonado [facility] [address] [place] [address] 08/02/2024 Ju Maldonado [facility] - Ju Qumulo [address] [place] [address] 07/12/2024 Ju Maldonado Autoimmune thyroidit is E06.3 ; Other fatigue R53.83 ; Obesity, unspecified E66.9 ; Abnormal weight gain R63.5 ; Vitamin D deficiency, unspecified E55.9 ; Hirsutism L68.0 ; Family history of diabetes mellitus Z83.3 and Nontoxic goiter, unspecified E04.9 [place] [facility] - Jupo Maldonado [address] [place] [address] 07/25/2024 Ju Maldonado Type 2 diabetes mellitus with hyperglycemia E11.65 ; Hypothyroidism, unspecified E03.9 ; Obesity, unspecified E66.9 ; Polycystic ovarian syndrome E28.2 and Hyperlipidemia, unspecified E78.5 [place] [facility]- [address]. [address] [place] [address] 07/15/2024 Ju Maldonado Assessments Encounter Date Diagnosis (ICD Code) Assessment Notes Treatment Notes Treatment Clinical Notes Section Notes 07/14/2024 Obesity, unspecified (ICD-10 - E66.9) 07/26/2024 Type 2 diabetes mellitus with hyperglycemia (ICD-10 - E11.65) 07/12/2024 Other fatigue (ICD-10 - R53.83) 07/12/2024 Autoimmune thyroiditis (ICD-10 - E06.3) 07/25/2024 Type 2 diabetes mellitus with hyperglycemia (ICD-10 - E11.65) 07/25/2024 Hypothyroidism, unspecified (ICD-10 - E03.9) 07/12/2024 Obesity, unspecified (ICD-10 - E66.9) 07/25/2024 Obesity, unspecified (ICD-10 - E66.9) 07/12/2024 Abnormal weight gain (ICD-10 - R63.5) 07/25/2024 Polycystic ovarian syndrome (ICD-10 - E28.2) 07/12/2024 Vitamin D deficiency, unspecified (ICD-10 - E55.9) 07/25/2024 Hyperlipidemia, unspecified (ICD-10 - E78.5) 07/12/2024 Hirsutism (ICD-10 - L68.0) 07/12/2024 Family history of diabetes mellitus (ICD-10 - Z83.3) 07/12/2024 Nontoxic goiter, unspecified (ICD-10 - E04.9) 07/12/2024 Other Assessment and Plan: 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 Schedule thyroid ultrasound. Reassess in 4 weeks to discuss results and potential need for thyroid medication. 2. Fatigue and Sleep Disturbances- Reports of increased fatigue and sleep issues.- Plan to evaluate thyroid panel results for any contribution to fatigue and sleep disturbances. Consider cortisol level assessment if thyroid function is normal. 3. Anxiety- Significant anxiety reported.- Plan to assess thyroid panel results for any thyroid-related contribution to anxiety. Evaluate cortisol levels if thyroid function is normal. Discuss anxiety treatment options at next visit. 4. Hair Thinning and Facial Hair- Experiencing hair thinning and increased facial hair growth.- Plan to order a full hormone panel, including testosterone and insulin levels, to investigate hormonal imbalances. 5. Vitamin Deficiencies- No prior checks on vitamin levels by primary care provider.- Plan to order tests for vitamin B12, vitamin D, and zinc levels to identify potential deficiencies. 6. Family History of Diabetes- Family history of diabetes reported.- Plan to monitor fasting sugars and insulin levels for diabetes risk. Advise on diet and lifestyle for diabetes risk reduction. 7. Menstrual Cycle- Reports normal menstrual cycles.- Plan to continue monitoring menstrual cycles and address any concerns or changes in follow-up visits. Follow-up:- Schedule a follow-up appointment in 4 weeks to review lab results and discuss necessary treatment plans based on findings. Spent 45 minutes preparing to see the patient (ex review of tests/chart), obtaining and / or reviewing separately obtained history, performing a medically appropriate examination and/or evaluation, counseling and educating the patient/family/caregiver, ordering medications, tests, or procedures, referring and communicating with other health critical care rn, documenting clinical information in the electronic or other health record, independently interpreting results and communicating results to the patient/family/caregiver and care coordinating patient plan. Patient alert and oriented x 4 and aware of discussion noted above and in agreeance to plan in management of autoimmune thyroiditis, fatigue, obesity/weight gain, hirtustism and family hx of DM. Due to the nature of telemedicine, the ability to do physical assessment was limited to what can be accomplished by patient directed telehealth visit based on instruction. Those limits are understood by the patient and myself. Impression is based on history, available information, and physical findings accomplished with telehealth visit. Chronic disease/problem list/ medication list reviewed and updated where indicated. Discussed diagnosis, plan including risks, benefits, and options of treatment. Advised to call for new, worsening, or persistent symptoms. Level of patient risk was of moderate complexity due to the documented nature of presentation, the information assessment required and the nature of the development of an evaluation and treatment plan as documented. PMH, FHx, SHx, Surgical Hx, Quality management review carried out and addressed as documented today as part of this visit. Medication list was reviewed and adjusted as indicated. Medication requiring a refill was addressed. Risk and benefits of any new medications were discussed and all questions were answered. 07/25/2024 Other Assessment and Plan: Type 2 Diabetes MellitusEarly diabetes indicated by fasting glucose of 109 mg/dL and HbA1c of 7%, fatigue reported, no hypoglycemia symptomsHistory of PCOS and current weight of 260 lbs suggest increased risk for insulin resistanceInitiate Mounjaro (tirzepatide) 2.5 mg subcutaneously once weekly for 4 weeks, then increase to 5 mg weeklyEducate patient on [place] [employer] diet recommendationsLifestyle modifications to include increased water intake and consumption of low glycemic index foodsSchedule follow-up labs for October 04, 2024, to reassess glycemic controlFollow-up appointment set for late October 2024 HypothyroidismEarly signs with low free T4 of 0.8 ng/dL, elevated TSH levels impliedInitiate Unithroid (levothyroxine) 75 mcg orally daily on an empty stomachEducate patient on proper administration of levothyroxineAwait results of thyroid ultrasound scheduled for the following dayFollow-up to assess treatment response and adjust dosage as needed Polycystic Ovary Syndrome (PCOS)Known history of PCOS, elevated LH and low FSH levels, pelvic pain reportedInitiate norethindrone 0.35 mg orally daily for hormonal managementConsider metformin for insulin sensitizationRecommend inositol supplementsMonitor for improvement in menstrual symptoms and pelvic pain HyperlipidemiaElevated total cholesterol (224 mg/dL) and LDL (142 mg/dL)Dietary counseling for cholesterol managementReassess lipid panel with follow-up diabetes labs in 3 monthsConsider statin therapy if lifestyle modifications are insufficient Suspected HypercortisolismAbnormal ACTH (7.9 pg/mL) and DHEAS levels (under 100 ug/dL) suggest possible adrenal dysfunctionPerform overnight dexamethasone suppression testIf positive, pursue CT imaging of adrenal glandsFurther evaluation pending test results Follow-up:Schedule follow-up appointments and labs as indicated to review lab results and assess the response to interventionsEncourage patient to report any new or worsening symptoms Due to the nature of telemedicine, the ability to do physical assessment was limited to what can be accomplished by patient directed telehealth visit based on instruction. Those limits are understood by the patient and myself. Impression is based on history, available information, and physical findings accomplished with telehealth visit. Chronic disease/problem list/ medication list reviewed and updated where indicated. Discussed diagnosis, plan including risks, benefits, and options of treatment. Advised to call for new, worsening, or persistent symptoms. Level of patient risk was of moderate complexity due to the documented nature of presentation, the information assessment required and the nature of the development of an evaluation and treatment plan as documented. PMH, FHx, SHx, Surgical Hx, Quality management review carried out and addressed as documented today as part of this visit. Medication list was reviewed and adjusted as indicated. Medication requiring a refill was addressed. Risk and benefits of any new medications were discussed and all questions were answered. Spent 25 minutes preparing to see the patient (ex review of tests/chart), obtaining and / or reviewing separately obtained history, performing a medically appropriate examination and/or evaluation, counseling and educating the patient/family/caregiver, ordering medications, tests, or procedures, referring and communicating with other health critical care rn, documenting clinical information in the electronic or other health record, independently interpreting results and communicating results to the patient/family/caregiver and care coordinating patient plan. Patient alert and oriented x 4 and aware of discussion noted above and in agreeance to plan in management of obesity/weight management, type 2 DM (A1C of 7%), PCOS, hypothyroidism, and hyperlipidemia. Plan Of Treatment Pending Test Test Name Order Date ultrasound thyroid 07/12/2024 Next Appt Details Provider Name:Ju Maldonado, 12:00:00 PM, [address], [place], [address], Insurance Providers Payer Name Payer Address Payer Phone Subscriber Number Group Number Insured Name Patient Relationship to Insured Coverage Start Date Coverage End Date Medicaid [place] [address] [address] [place] [phone] [id number] Jazmyn San Self - patient is the insured Medical (General) History Medical History History ICD Code anxiety hashimotos thyroiditis obesity type 2 DM
--- OUTSIDE RECORDS SUMMARY | 2024-08-02 16:42 | XMS_ITS | Clinical Summary ---
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 Body Mass Index 44.29 07/24/2022 12:56 PM [employer] Plan of Treatment Upcoming Encounters Date Type Department Care Team (Late st Contact Info) Description 10/05/2024 3:45 PM CDT Office Visit [facility] Oncology and Hematology [facility] [address] [facility] [address] [place] [address] Codey Angeles MD [address] [facility] [address] [place] [address] Health Maintenance Due Date Last [...] OR WO CAD Routine 06/04/2022 2:53 PM [employer] Mastodynia from Last 3 Months or Most Recently Relevant to Health Maintenance Results * MAMMO DIAG BILAT 3D IZZY W OR WO CAD (06/04/2022 2:53 PM [employer]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 RECOMMENDATIONS: Bilateral annual screening mammogram. 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
--- OUTSIDE RECORDS SUMMARY | 2024-08-02 16:43 | XMS_ITS | Referral Summary ---
Author Organization [facility] Address [address] [place] [address] Care Team Providers Care Lead Customer Service Representative Name Role Phone Chaparro Harris MD Primary Care Provider [phone] Jeff Umanzor MD Unavailable [phone] Encounters Date Type Department Care Team Description 07/27/2024 2:30 PM THERAPY TEACHER Infusion [address] [place] [address] Other specified intestinal malabsorption (Primary Dx); Iron deficiency anemia secondary to inadequate dietary iron intake 07/26/2024 8:05 AM THERAPY TEACHER Lab [facility] [address] [place] [phone] 07/25/2024 Telephone [facility] [address] [place] [phone] Blanca Christopher RN Forms Request 07/25/2024 Orders Only [facility] Diabetes Endocrine Care at [address] [place] [address] 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 [place] [address] Olga Sandoval ALEXANDER 07/21/2024 Telephone [facility] [address] [facility] [address] [place] [address] Chaparro Harris MD 07/20/2024 3:00 PM THERAPY TEACHER Office Visit [facility] Department of Otolaryngology Head-Neck Division [address] [facility] Floor 5 [place] [id number] Darline Messina PA Geographic tongue (Primary Dx); Other lesions of oral mucosa 07/18/2024 Telephone [facility] [address] [place] [address] Blanca Christopher, ALEXANDER Additional Services Or Orders 07/15/2024 Telephone [facility] [address] [place] [address] Jody Jordan, ALEXANDER 07/14/2024 Telephone [facility] [address] [place] [address] [address] [place] [address] Eneida Sandoval RN 07/14/2024 11:15 AM THERAPY TEACHER Lab [facility] [address] [place] [address] 07/14/2024 10:55 AM THERAPY TEACHER Lab [facility] [address] [place] [address] Fatigue, unspecified type; Iron deficiency; Vitamin D deficiency; B12 deficiency 07/12/2024 Orders Only [facility] Minimally Invasive Surgery [address] [facility] Medical Office Building 4 [address] [place] [address] Liana Bishop, ALEXANDER Gastroesophageal reflux disease without esophagitis (Primary Dx); Morbid obesity (HCC); S/P laparoscopic sleeve gastrectomy 07/12/2024 Telephone [facility] Advanced Medicine ([facility] [address] [facility] Advanced Medicine 11th [place] [address] [place] [address] Vanessa Beck MS 07/07/2024 Telephone [facility] 1 [place] [address] Martha Stinson, ALEXANDER 06/15/2024 4:00 PM THERAPY TEACHER Office Visit [facility] Diabetes Endocrine Care at [address] [place] [address] Ramiro Pinedo, Vern's disease 06/09/2024 9:45 AM THERAPY TEACHER Telemedicine [facility] [address] [address] Chaparro Harris MD AME (generalized anxiety disorder) (Primary Dx) 06/08/2024 4:31 PM THERAPY TEACHER - 06/08/2024 11:59 PM THERAPY TEACHER Hospital Encounter [facility] [address] [place] [address] Screening mammogram, encounter for Discharge Disposition: Discharge to home or self care 05/30/2024 Telephone [facility] 1 [place] [address] Jody Jordan, ALEXANDER 05/17/2024 Orders Only [facility] Sleep Medicine at [address] [place] [address] Thom Doyle MD Pseudotumor cerebri (Primary Dx) 05/17/2024 Orders Only [facility] Sleep Medicine at [address] [place] [address] Thom Doyle MD 05/10/2024 1:15 PM THERAPY TEACHER Office Visit [facility] [address] [place] [address] [address] [place] [address] Thom Doyle MD Chronic migraine without aura without status migrainosus, not intractable (Primary Dx) 05/05/2024 Telephone [facility] [address] [phone] Chaparro Harris MD Medication Problem from Last 3 Months Allergies Active Allergy Reactions Criticality Noted Date Comments Nsaids (Non-Steroidal Anti-Inflammatory Drug) Other (See comments) Low Avoids due to weight loss surgery Medications nystatin 100,000 unit/mL suspension Take 5 mL [...] inject B12 1 each 07/15/19 25 Active LORazepam (ATIVAN) 1 mg tablet Take 1 tablet (1 mg total) by mouth 2 (two) times a day 60 tablet 08/01/19 25 025 Active LORazepam (ATIVAN) 1 mg tablet TAKE 1 TABLET(1 MG) BY MOUTH TWICE DAILY FOR ANXIETY 60 tablet 05/25/20 24 025 Discontinued(Re order) sertraline (ZOLOFT) 50 mg tablet Take 1 [...] or CMV - given recent travel to [place] w nausea/diarrhea, 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 [...] loss Assessment & Plan (08/04/2022 4:53 PM THERAPY TEACHER): Not well controlled, continues to have significant [...] (11/26/2021): Added automatically from request for surgery [id number] 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 Assessment & Plan (09/10/2021 1:05 PM THERAPY TEACHER): Stable, well controlled; TSH at target Continue to check TSH related, no need for thyroid hormone at this time Assessment & Plan (06/25/2021 3:22 PM THERAPY TEACHER): Stable, well controlled; continues to follow with Endocrinology; last TSH was normal, ultrasound reviewed No current medications AME (generalized anxiety disorder) 05/26/2018 Assessment & Plan (06/14/2024 3:04 PM THERAPY TEACHER): Not well controlled, acutely worsened due to [...] BID Assessment & Plan (08/04/2022 4:52 PM THERAPY TEACHER): Not well controlled; worsening; patient reports multiple [...] daily Assessment & Plan (09/10/2021 1:04 PM THERAPY TEACHER): Not well controlled, continues to have elevated anxiety and panic attacks, severe anxiety associated with small health concerns Patient reports no relief previously with Lexapro sertraline Patient is unclear if she needs daily medications Continue bupropion 150 mg daily, Valium 5 mg nightly Assessment & Plan (06/25/2021 3:21 PM THERAPY TEACHER): Stable, improving; patient reports decreased panic attacks on sertraline Continue Zoloft 50 mg daily, hydroxyzine 25 mg t.i.d. p.r.n. for panic attacks Iron deficiency anemia ever agudelo to inadequate dietary iron intake 02/04/2018 Assessment & Plan (09/15/2022 5:09 PM CDT): Stable, patient has iron infusion scheduled Assessment & Plan (09/10/2021 1:04 PM THERAPY TEACHER): Stable, improving; no evidence of anemia or iron deficiency at this time; continue to monitor with regular CBCs Assessment & Plan (06/25/2021 3:22 PM THERAPY TEACHER): Follows with Hematology for iron infusions Low [...] w/r/t gut microbiome. Referred to ADA and [employer] websites for additional information on topics including glycemic index/carbohydrate choices, protein sources. 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 Assessment & Plan (06/25/2021 3:23 PM THERAPY TEACHER): Postsurgical changes, secondary to gastric sleeve in [...] working on weight loss; follows with manager environmental health, cutting back on coffee and trying to eat better Encourage 30 minutes moderate intensity exercise 5 days per week Assessment & Plan (09/10/2021 1:05 PM THERAPY TEACHER): Not well controlled, patient has history of gastric sleeve, continues to have bowel issues associated gastric sleeve No significant change in weight, patient has been working on weight loss reports no significant changes Assessment & Plan (06/25/2021 3:24 PM THERAPY TEACHER): Not well controlled; patient is status post [...] on file Legal Sex Female 8:26 PM THERAPY TEACHER Gender Identity Not on file Sexual Orientation Not on file Last Filed Vital Signs Vital Sign Reading Time Taken Comments Blood Pressure 120/74 07/27/2024 2:21 PM THERAPY TEACHER Pulse 78 07/27/2024 2:21 PM THERAPY TEACHER Temperature 36.4 ??C (97.5 ??F) 07/27/2024 2:21 PM CS T Respiratory Rate 18 07/27/2024 2:21 PM THERAPY TEACHER Oxygen Saturation 99% 07/27/2024 2:21 PM THERAPY TEACHER Inhaled Oxygen Concentration - - Weight 119.3 kg (263 lb) 07/20/2024 2:32 PM THERAPY TEACHER Height 162.6 cm (5' 4 ) 07/20/2024 2:32 PM THERAPY TEACHER Body Mass Index 45.14 07/20/2024 2:32 PM THERAPY TEACHER Plan of Treatment Not on file Procedures Procedure Name Priority Date/Time Associated Diagnosis Comments CORTISOL Routine 07/26/2024 8:06 AM THERAPY TEACHER FOLATE Routine 07/14/2024 11:30 AM THERAPY TEACHER EGFR Routine 07/14/2024 11:10 AM THERAPY TEACHER IODINE SERUM,PLASMA Routine 07/14/2024 1 1:10 AM THERAPY TEACHER TSH Routine 07/14/2024 11:10 AM THERAPY TEACHER THYROID PEROXIDASE ANTIBODY Routine 07/14/2024 11:10 AM THERAPY TEACHER TESTOSTERONE, TOTAL AND FREE, SERUM Routine 07/14/2024 11:10 AM THERAPY TEACHER T4, FREE Routine 07/14/2024 11:10 AM THERAPY TEACHER T3, FREE Routine 07/14/2024 11:10 AM THERAPY TEACHER PROGESTERONE Routine 07/14/2024 11:10 AM THERAPY TEACHER LUTEINIZING HORMONE (LH) Routine 07/14/2024 11:10 AM THERAPY TEACHER LIPID PANEL Routine 07/14/2024 11:10 AM THERAPY TEACHER INSULIN, TOTAL Routine 07/14/2024 11:10 AM THERAPY TEACHER HEMOGLOBIN A1C Routine 07/14/2024 11:10 AM THERAPY TEACHER FOLLICLE STIMULATING HORMONE Routine 07/14/2024 11:10 AM THERAPY TEACHER ESTRADIOL Routine 07/14/2024 11:10 AM THERAPY TEACHER DHEA-SULFATE Routine 07/14/2024 11:10 AM THERAPY TEACHER COMPREHENSIVE METABOLIC PANEL Routine 07/14/2024 11:10 AM THERAPY TEACHER ACTH Routine 07/14/2024 11:10 AM THERAPY TEACHER DIFFERENTIAL AUTO Routine 07/14/2024 10: 52 AM THERAPY TEACHER Iron deficiency VITAMIN B12 Routine 07/14/2024 10:52 AM THERAPY TEACHER B12 deficiency VITAMIN D 25 HYDROXY Routine 07/14/2024 10:52 AM THERAPY TEACHER Vitamin D deficiency CBC WITH AUTO DIFFERENTIAL Routine 07/14/2024 10:52 AM THERAPY TEACHER Iron deficiency IRON PROFILE W/ IBC Routine 07/14/2024 1 0:52 AM THERAPY TEACHER Iron deficiency FERRITIN Routine 07/14/2024 10:52 AM THERAPY TEACHER Iron deficiency ZINC Routine 07/14/2024 10:52 AM THERAPY TEACHER Fatigue, unspecified type SCREENING MAMMOGRAM BILATERAL W BRIAN Schedule Routine, Read Routine (OP Routine) 06/08/2024 4:56 PM THERAPY TEACHER Screening mammogram, encounter for HEPATITIS C ANTIBODY Routine 10/12/2023 9:08 AM CDT Screening for STDs (sexually transmitted diseases) from Last 3 Months or Most Recently Relevant to Health Maintenance Results * (ABNORMAL) Cortisol (07/26/2024 8:06 AM THERAPY TEACHER) Pathologist [facility] Cortisol 0.8(L) 4.8 - 19.5 mcg/dl Comment: Interpretive Data Normal Range: ??4.8 - 19.5 mcg/dL; ??Evening: ??Half of morning value. ?? This analyte undergoes marked diurnal variation. ??Ranges indicated apply to morning specimens. ?? Current interpretive data was last revised 2018. Testing performed by: [facility], [address] [place] [address]., [id number] Blood 07/26/2024 8:06 AM THERAPY TEACHER 07/26/2024 8:07 AM THERAPY TEACHER Ju Maldonado MD LAB BLOOD ORDERABLES Odalys l Result Performing Organization Address [facility] Co de Phone Number [facility] ([facility]) [address] [facility] [place] [address] * Folate (07/14/2024 11:30 AM THERAPY TEACHER) [facility] Folic acid 7.9 >=5.0 ng/mL Comment: Hemolysis present. ??Results may be affected. Testing performed by: [facility], [address] [place] [address]., [address] Blood 07/14/2024 11:3 0 AM THERAPY TEACHER 07/14/2024 1:26 PM THERAPY TEACHER Ju Maldonado MD LAB BLOOD ORDERABLES Odalys l Result Performing Organization Address [facility] Co de Phone Number [facility] ([place]) [address] [facility] [place] [address] * eGFR (07/14/2024 11:10 AM THERAPY TEACHER) [facility] eGFR >90 >=60 mL/min/1. 73 m2 Comment: [...] was last reviewed 2021. Testing performed by: [facility], [address] [place] [address], [place]., [address] Blood 07/14/2024 11:1 0 AM THERAPY TEACHER 07/14/2024 10:41 PM THERAPY TEACHER us Ju Maldonado MD LAB BLOOD ORDERABLES Odalys jennings Result [facility] [place] [facility] Department [place] [address] * Iodine serum, plasma (07/14/2024 11:10 AM THERAPY TEACHER) [facility] Iodine 52 40 - 92 ng/mL [place] ref Lab Comment: ADDITIONAL INFORMATION This test was developed and its performance characteristics determined by [facility] in a manner consistent with CLIA requirements. This test has not been cleared or approved by the U.S. Food and Drug Administration. Test Performed by: [facility] [address] [place] [address] [employer] Custodian: Kojo Alvarenga Ph.D.; CLIA# [id number] Testing performed by: [facility], [address] [place] [address]., [id number] Blood 07/14/2024 11:1 0 AM THERAPY TEACHER 07/14/2024 10:34 PM THERAPY TEACHER Ju Maldonado MD LAB BLOOD ORDERABLES Odalys l Result Performing Organization Address [facility] Co de Phone Number [facility] ([place]) 1 [place] [address] [place] ref [facility] * (ABNORMAL) Thyroid peroxidase antibody (TPO) (07/14/2024 11:10 AM THERAPY TEACHER) Anti Thyroid Peroxidase 434(H) <=34 IUnits/mL Comment: ATPO Interpretive Data Results may be up to 28% higher in patients receiving Itraconazole. Current interpretive data was last revised 2020. Testing performed by: [facility], [address] [place] [address]., [id number] Blood 07/14/2024 11:1 0 AM THERAPY TEACHER 07/15/2024 10:04 AM THERAPY TEACHER Ju Maldonado MD LAB BLOOD ORDERABLES Odalys l Result [facility] ([place]) 1 [facility] [place] [address] * Progesterone (07/14/2024 11:10 AM THERAPY TEACHER) Progesterone 2.35 ng/mL Comment: Interpretive Data Males: ?<0.15 ng/mL Females: ??Follicular ?<0.20 ng/mL ??Ovulation ? <4.1 ng/mL ??Luteal ?4.1 - ??14.5 ng/mL ??1st Trimester ?? 11.0 - ??44.0 ng/mL ??2nd Trimester ?? 25.0 - ??83.0 ng/mL ??3rd Trimester ?? 59.0 - 214.0 ng/mL ??Postmenopausal ??<0.13 ng/mL Current interpretive data was last revised 2021. Testing performed by: [facility], [address] [place] [address], [id number] Blood 07/14/2024 11:1 0 AM THERAPY TEACHER 07/15/2024 10:04 AM THERAPY TEACHER Ju Maldonado MD LAB BLOOD ORDERABLES Odalys l Result Performing Organization Address City/[facility]/ZIP Co de Phone Number [facility] ([place]) 1 [facility] [employer] [place] [place] [address] * (ABNORMAL) Insulin, total (07/14/2024 11:10 AM THERAPY TEACHER) Insulin 28.0(H) 2.6 - 25.0 mcIUnit/mL Comment:Testing performed by : [facility], [address] [place] [address], [id number] Blood 07/14/2024 11:1 0 AM THERAPY TEACHER 07/15/2024 10:04 AM THERAPY TEACHER Ju Maldonado MD LAB BLOOD ORDERABLES Odalys l Result Performing Organization Address City/[facility]/ZIP Co de Phone Number [facility] ([place]) 1 [facility] [place] [address] * DHEA-sulfate (07/14/2024 11:10 AM THERAPY TEACHER) DHEA-S 73.5 60.9 - 337.0 mcg/dL Comment:Testing performed by : [facility], [address] [place] [address], [address] Blood 07/14/2024 11:1 0 AM THERAPY TEACHER 07/15/2024 10:04 AM THERAPY TEACHER Ju Maldonado MD LAB BLOOD ORDERABLES Odalys l Result [facility] ([place]) 1 [facility] [place] [place] [address] * Estradiol (07/14/2024 11:10 AM THERAPY TEACHER) Estradiol 210.0 pg/mL Comment: Interpretive Data Males: 11 ? 43 pg/mL Females: Premenopausal: 31 ? 533 pg/mL Postmenopausal: < 50 pg/mL Patients treated with Fluvestrant (Faslodex) should be tested using an alternate assay such as LC-MS due to potential for cross-reactivity. Estradiol varies widely throughout the menstrual cycle. Current interpretive data was last revised 2024. Testing performed by: [facility], [address] [place] [address]., [id number] Blood 07/14/2024 11:1 0 AM THERAPY TEACHER 07/15/2024 10:04 AM THERAPY TEACHER Ju Maldonado MD LAB BLOOD ORDERABLES Odalys l Result Performing Organization Address [facility] Co de Phone Number [facility] ([place]) 1 [place] [address] * ACTH (07/14/2024 11:10 AM THERAPY TEACHER) ACTH 7.9 7.0 - 63.0 pg/mL Comment:Testing performed by : [facility], [address] [place] [address]., [id number] Blood 07/14/2024 11:1 0 AM THERAPY TEACHER 07/15/2024 10:01 AM THERAPY TEACHER Ju Maldonado MD LAB BLOOD ORDERABLES Odalys l Result [facility] ([place]) 1 [facility] Department [place] [address] * (ABNORMAL) Testosterone, Total and Free, Serum (07/14/2024 11:10 AM THERAPY TEACHER) [facility] Testosterone 95(H) 8 - 60 ng/dL [place] ref Lab Comment: ADDITIONAL INFORMATION Testing performed by Liquid Chromatography-Tandem Mass Spectrometry (LC-MS/MS). This test was developed and its performance characteristics determined by [facility] in a manner consistent with CLIA requirements. This test has not been cleared or approved by the U.S. Food and Drug Administration. Test Performed by: [address] [address] [employer] Custodian: Kojo Alvarenga Ph.D.; CLIA# [id number] Testing performed by: [address], [address] Testosterone, free 1.27(H) <0.13 - 0.98 ng/dL [facility] ([place]) Comment: ADDITIONAL INFORMATION This test was developed and its performance characteristics determined by [facility] in a manner consistent with CLIA requirements. This test has not been cleared or approved by the U.S. Food and Drug Administration. Testing performed by: [facility], [address] [place] [address], [id number] Blood 07/14/2024 11:1 0 AM THERAPY TEACHER 07/14/2024 10:34 PM THERAPY TEACHER us Ju Maldonado MD LAB BLOOD ORDERABLES Odalys jennings Result [facility] ([place]) 1 [facility] Department [place] [address] [place] ref Lab * T3, free (07/14/2024 11:10 AM THERAPY TEACHER) Free T3 2.5 2.0 - 4.4 pg/mL Comment:Testing performed by : [facility], [address] [place] [address], [id number] Blood 07/14/2024 11:1 0 AM THERAPY TEACHER 07/14/2024 11:10 AM THERAPY TEACHER us Ju Maldonado MD LAB BLOOD ORDERABLES Odalys l Result [facility] ([place]) 1 [facility] [place] [place] [address] * TSH (07/14/2024 11:10 AM THERAPY TEACHER) Pathologist [facility] Thyroid Stimulating Hormone 3.45 0.30 - 4.20 mcIUnit/mL Comment:Testing performed by : [facility], [address] [place] [address], [id number] Blood 07/14/2024 11:1 0 AM THERAPY TEACHER 07/14/2024 11:10 AM THERAPY TEACHER us Ju Maldonado MD LAB BLOOD ORDERABLES Odalys l Result Performing Organization Address City/[facility]/ZIP Co de Phone Number [facility] ([place]) 1 [facility] [place] [place] [address] * (ABNORMAL) T4, free (07/14/2024 11:10 AM THERAPY TEACHER) Free T4 0.88(L) 0.90 - 1.70 ng/dL Comment:Testing performed by : [facility], [address] [place] [address], [id number] Blood 07/14/2024 11:1 0 AM THERAPY TEACHER 07/14/2024 11:10 AM THERAPY TEACHER us Ju Maldonado MD LAB BLOOD ORDERABLES Odalys l Result [facility] ([place]) 1 [facility] [place] [place] [address] * (ABNORMAL) Hemoglobin A1c (07/14/2024 11:10 AM THERAPY TEACHER) Pathologist [facility] Hgb A1C 7.0(H) 4.0 - 5.6 % Comment:Testing performed by : [facility], [address] [place] [address]., [address] Estimated Average Glucose 154 mg/dL [facility] ([place]) Comment: The ADA recommends reporting an estimated Average Glucose (eAG) with all Hemoglobin A1c results using the equation derived from a study of 507 normal and diabetic adults. ??Minority populations were underrepresented and children were not included. ?? (Diabetes Care 31:6313-0393, 2008). ??The eAG is not equivalent to a fasting glucose. Testing performed by: [facility], [address] [place] [address]., [address] Blood 07/14/2024 11:1 0 AM THERAPY TEACHER 07/14/2024 11:11 AM THERAPY TEACHER Ju Maldonado MD LAB BLOOD ORDERABLES Odalys jennings Result [facility] ([place]) 1 [facility] Department [place] [address] * LH (07/14/2024 11:10 AM THERAPY TEACHER) Pathologist [facility] LH 14.1 IUnits/L Comment: Interpretive Data Males: ??Adults: ? 1.7 - 8.6 ?? IUnits/L Females: ?Follicular: ? 2.4 - 12.6 ??IUnits/L ??Ovulation: ? 14.0 - 95.6 ??IUnits/L ?Luteal: ? 1.0 - 11.4 ??IUnits/L ??Postmenopausal: 7.7 - 58.5 ??IUnits/L Current interpretive data was last revised on 2018. Testing performed by: [facility], [address] [place]., [address] Blood 07/14/2024 11:1 0 AM THERAPY TEACHER 07/15/2024 10:04 AM THERAPY TEACHER Ju Maldonado MD LAB BLOOD ORDERABLES Odalys l Result Performing Organization Address [facility] de Phone Number [facility] ([place]) 1 [facility] [place] [place] [address] * Follicle stimulating hormone (07/14/2024 11:10 AM THERAPY TEACHER) FSH 2.7 IUnits/L Comment: Interpretive Data Male: Adults: ?1.5 - 12.4 IUnits/L Female: ?? Follicular: ?3.5 - 12.5 IUnits/L Ovulation: ? 4.7 - 21.5 IUnits/L Luteal: ?1.7 - 7.7 IUnits/L Postmenopausal: 25.8 - 134.8 IUnits/L Current interpretive data was last revised 2015. Testing performed by: [facility], 1 [facility] [address] Blood 07/14/2024 11:1 0 AM THERAPY TEACHER 07/15/2024 10:04 AM THERAPY TEACHER Ju Maldonado MD LAB BLOOD ORDERABLES Odalys l Result Performing Organization Address [facility] de Phone Number [facility] ([place]) 1 [facility] [place] [place] [address] * (ABNORMAL) Lipid panel (07/14/2024 11:10 AM THERAPY TEACHER) Cholesterol 224(H) 30 - 199 mg/dL Comment: [...] last revised on 2018. Testing performed by: [facility], [address] [place] [address]., [address] Triglycerides 91 <=149 mg/dL [facility] ([place]) [...] last revised on 2018. Testing performed by: [facility], [address] [place] [address]., [id number] HDL 66 >=40 mg/dL [facility] ([place]) [...] last revised on 2018. Testing performed by: [facility], [address] [place] [address]., [address] LDL, calculated 142(H) <=129 mg/dL [facility] [...] last revised on 2024. Testing performed by: [facility], [address] [place] [address], [place]., [address] Non-HDL Cholesterol 158 mg/dL [facility] ([facility]) [...] last revised on 2018. Testing performed by: [address] [address] Chol/HDL ratio 3 [facility] ([facility]) Comment:Testing performed by : [address], [address] Blood 07/14/2024 11:1 0 AM THERAPY TEACHER 07/14/2024 11:10 AM THERAPY TEACHER Ju Maldonado MD LAB BLOOD ORDERABLES Odalys jennings Result [facility] ([place]) 1 [facility] [place] [address] * (ABNORMAL) Comprehensive metabolic panel (07/14/2024 11:10 AM THERAPY TEACHER) Sodium 138 135 - 145 mmol/L Comment:Testing performed by : [address], [address] Potassium, pl 4.3 3.3 - 4.9 mmol/L [facility] ([facility]) Comment:Testing performed by : [address], [address] Chloride 102 97 - 110 mmol/L [facility] ([facility]) Comment:Testing performed by : [address] [address] CO2 24 22 - 32 mmol/L [facility] ([facility]) Comment:Testing performed by : [address], [address] Anion gap 12 2 - 15 mmol/L [facility] ([facility]) Comment:Testing performed by : [address], [address] BUN 14 6 - 25 mg/dL [facility] ([facility]) Comment:Testing performed by : [address] [address] Creatinine 0.60 0.60 - 1.10 mg/dL [facility] ([facility]) Comment:Testing performed by : [address] [address] Glucose 109 70 - 199 mg/dL [facility] [...] was last revised 2022. Testing performed by: [address], [address] Calcium 8.9 8.5 - 10.3 mg/dL [facility] ([facility]) Comment:Testing performed by : [address], [address] Bilirubin, total 0.3 0.1 - 1.2 mg/dL [facility] ([facility]) Comment:Testing performed by : [address], [address] Protein, pl 7.3 6.5 - 8.5 g/dL [facility] ([facility]) Comment:Testing performed by : [address], [address] Albumin 4.0 3.5 - 5.0 g/dL [facility] ([facility]) Comment:Testing performed by : [address] [address] Alk phos 96 40 - 130 Units/L [facility] ([facility]) Comment:Testing performed by : [address], [address] ALT 67(H) 7 - 45 Units/L [facility] ([facility]) Comment:Testing performed by : [address], [address] AST 68(H) 10 - 45 Units/L [facility] ([facility]) Comment:Testing performed by : [facility], [address] [place] [address]., [address] Blood 07/14/2024 11:1 0 AM THERAPY TEACHER 07/14/2024 11:10 AM THERAPY TEACHER Ju Maldonado MD LAB BLOOD ORDERABLES Odalys dick Result [facility] ([facility]) 1 [facility] Department [place] [address] * Differential, auto (07/14/2024 10:52 AM THERAPY TEACHER) Neutrophil abs 4.0 1.5 - 6.5 K/cumm Comment:Testing performed by : [facility], [address] [place] [address], [address] Imm gran abs 0.0 0.0 - 0.1 K/cumm [facility] ([facility]) Comment:Testing performed by : [facility], [address] [place] [address], [address] Lymphocyte abs 1.8 0.8 - 3.3 K/cumm [facility] ([facility]) Comment:Testing performed by : [address] [address] Monocyte abs 0.5 0.2 - 0.8 K/cumm [facility] ([facility]) Comment:Testing performed by : [address], [address] Eosinophil abs 0.1 0.0 - 0.5 K/cumm [facility] ([facility]) Comment:Testing performed by : [address], [address] Basophil abs 0.1 0.0 - 0.1 K/cumm [facility] ([facility]) Comment:Testing performed by : [address], [address] Neutrophil pct 62.5 % [facility] ([facility]) Comment: Interpretive Data Percent cell count reference ranges are not reported, since discordance with absolute values may lead to misinterpretation of CBC data. Current Interpretive Data was last revised on 2017. Testing performed by: [facility], [address] [place] [address]., [address] Imm gran pct 0.3 % [facility] ([facility]) Comment: Interpretive Data Percent cell count reference ranges are not reported, since discordance with absolute values may lead to misinterpretation of CBC data. Current Interpretive Data was last revised on 2017. Testing performed by: [facility], [address] [place] [address]., [address] Lymphocyte pct 28.1 % [facility] ([facility]) Comment: Interpretive Data Percent cell count reference ranges are not reported, since discordance with absolute values may lead to misinterpretation of CBC data. Current Interpretive Data was last revised on 2017. Testing performed by: [facility], [address] [place] [address]., [address] Monocyte pct 7.1 % [facility] ([facility]) Comment: Interpretive Data Percent cell count reference ranges are not reported, since discordance with absolute values may lead to misinterpretation of CBC data. Current Interpretive Data was last revised on 2017. Testing performed by: [facility], [address] [place] [address]., [address] Eosinophil pct 1.1 % [facility] ([facility]) Comment: Interpretive Data Percent cell count reference ranges are not reported, since discordance with absolute values may lead to misinterpretation of CBC data. Current Interpretive Data was last revised on 2017. Testing performed by: [facility], [address] [place] [address]., [address] Basophil pct 0.9 % [facility] ([facility]) Comment: Interpretive Data Percent cell count reference ranges are not reported, since discordance with absolute values may lead to misinterpretation of CBC data. Current Interpretive Data was last revised on 2017. Testing performed by: [address] [address] Blood 07/14/2024 10:5 2 AM THERAPY TEACHER 07/14/2024 10:42 PM THERAPY TEACHER us Chaparro Harris MD LAB BLOOD ORDERABLES Odalys jennings Result [facility] ([facility]) 1 [facility] [place] [address] * (ABNORMAL) Iron profile w/ IBC (07/14/2024 10:52 AM THERAPY TEACHER) [facility] Iron 39 35 - 145 mcg/dl Comment:Testing performed by : [address] [address] TIBC 380 250 - 400 mcg/dL [facility] ([facility]) Comment:Testing performed by : [address], [address] Transferrin saturation 10(L) 20 - 50 % [facility] ([facility]) Comment:Testing performed by : [address], [address] Blood 07/14/2024 10:5 2 AM THERAPY TEACHER 07/14/2024 10:42 PM THERAPY TEACHER Chaparro Harris MD LAB BLOOD ORDERABLES Odalys jennings Result [facility] ([facility]) 1 [facility] Department [place] [address] * (ABNORMAL) CBC with auto differential (07/14/2024 10:52 AM THERAPY TEACHER) [facility] WBC 6.3 3.8 - 9.9 K/cumm Comment:Testing performed by : [address], [address] Hgb 10.6(L) 11.9 - 15.5 g/dL [facility] ([facility]) Comment:Testing performed by : [address], [address] Hct 36.5 35.6 - 45.5 % [facility] ([facility]) Comment:Testing performed by : [address], [address] Plt 334 150 - 400 K/cumm [facility] ([facility]) Comment:Testing performed by : [address], [address] MPV 10.2 9.1 - 12.3 fL [facility] ([facility]) Comment:Testing performed by : [facility], [address] [place] [address], [address] RBC 4.31 3.90 - 5.20 M/cumm [facility] ([facility]) Comment:Testing performed by : [address], [address] MCV 84.7 81.3 - 96.4 fL [facility] ([facility]) Comment:Testing performed by : [address], [address] MCH 24.6(L) 27.1 - 33.3 pg [facility] ([facility]) Comment:Testing performed by : [facility], [address] [place] [address], [address] MCHC 29.0(L) 32.3 - 35.7 g/dL [facility] ([facility]) Comment:Testing performed by : [address], [address] RDW CV 14.6 11.1 - 14.9 % [facility] ([facility]) Comment:Testing performed by : [address], [address] RDW SD 45.3 35.7 - 48.1 fL [facility] ([facility]) Comment:Testing performed by : [address], [address] NRBC abs 0.00 0.00 - 0.01 K/cumm [facility] ([facility]) Comment:Testing performed by : [address], [address] Blood 07/14/2024 10:5 2 AM THERAPY TEACHER 07/14/2024 10:42 PM THERAPY TEACHER Narrative [facility] ([facility]) - 07/14/2024 10:58 PM THERAPY TEACHER fax to [phone] us Chaparro Harris MD LAB BLOOD ORDERABLES Odalys jennings Result [facility] ([facility]) 1 [facility] Department [place] [address] * Zinc (07/14/2024 10:52 AM THERAPY TEACHER) Zinc 75 60 - 106 mcg/dL [facility] Comment: ADDITIONAL INFORMATION This test was developed and its performance characteristics determined by [facility] in a manner consistent with CLIA requirements. This test has not been cleared or approved by the U.S. Food and Drug Administration. Test Performed by: [facility] - [facility] [address] [place] [address] [employer] Custodian: Kojo Alvarenga Ph.D.; CLIA# [id number] Testing performed by: [facility], [address] [place] [address], [address] Blood 07/14/2024 10:5 2 AM THERAPY TEACHER 07/14/2024 10:42 PM THERAPY TEACHER Chaparro Harris MD LAB BLOOD ORDERABLES Odalys l Result Performing Organization Address City/[facility]/ZIP Co de Phone Number [facility] ([facility]) 1 [facility] [place] [address] [facility] ref [facility] * Vitamin D 25 hydroxy (07/14/2024 10:52 AM THERAPY TEACHER) [facility] Vitamin D 25-OH 30 30 - 80 ng/mL Comment:Testing performed by : [facility], [address] [place] [address]., [address] Blood 07/14/2024 10:5 2 AM THERAPY TEACHER 07/14/2024 10:42 PM THERAPY TEACHER Chaparro Harris MD LAB BLOOD ORDERABLES Odalys l Result [facility] ([facility]) 1 [facility] [place] [place] [address] * Ferritin (07/14/2024 10:52 AM THERAPY TEACHER) [facility] Ferritin 15 15 - 150 ng/mL Comment:Testing performed by : [facility], [address] [place] [address], [address] Blood 07/14/2024 10:5 2 AM THERAPY TEACHER 07/14/2024 10:42 PM THERAPY TEACHER Chaparro Harris MD LAB BLOOD ORDERABLES Odalys l Result [facility]) 1 [facility] [place] [place] [address] * Vitamin B12 (07/14/2024 10:52 AM THERAPY TEACHER) Vitamin B12 492 230 - 1,250 pg/mL Comment:Testing performed by : [facility], [address] [place] [address], [place]., [address] Blood 07/14/2024 10:5 2 AM THERAPY TEACHER 07/14/2024 10:42 PM THERAPY TEACHER Chaparro Harris MD LAB BLOOD ORDERABLES Odalys l Result Performing Organization Address [facility] Co de Phone Number [facility] [place]) 1 [facility] [place] [address] * Screening Mammogram Bilateral W Brian (06/08/2024 4:56 PM THERAPY TEACHER) Anatomical Region Laterality Modality Breast Bilateral Mammography 06/09/2024 11:3 5 AM THERAPY TEACHER Impressions 06/09/2024 11:35 AM THERAPY TEACHER No evidence of malignancy in either breast. FINAL ASSESSMENT: BI-RADS Category 1: Negative. RECOMMENDATION: Recommend return for annual screening mammogram in 12 months. ?? Electronically signed by: Sonya Olsen M.D. Narrative 06/09/2024 11:35 AM THERAPY TEACHER EXAMINATION: BILATERAL SCREENING MAMMOGRAM COMPARISON: All prior [...] MICROBIOLOGY - GENERAL O RDERABLES Final Result [facility] [address] [facility] Department of Laboratories [place] [id number] from Last 3 Months or Most Recently Relevant to Health Maintenance Insurance [facility] Advance Directives For more information, please contact: [phone] * Full Code (Latest Code Status on File) Date Activated Date Inactivated Comments 11/27/2021 8:51 AM 11/27/2021 4:54 PM * Full Code Date Activated Date Inactivated Comments 11/27/2021 8:51 AM 11/27/2021 8:51 AM * Full Code Date Activated Date Inactivated Comments 02/09/2019 1:46 PM 02/09/2019 7:27 PM Care Teams Lead Customer Service Representative Relationship Specialty Start Date End Date Chaparro Harris MD [address] [place] [address] PCP - General Family Medicine 10/01/21 Jeff Umanzor MD [address] [place] [address] Referring Physician Obstetrics and Gynecology 08/10/23
--- OUTSIDE RECORDS SUMMARY | 2024-08-02 16:43 | XMS_ITS | CONTINUITY OF CARE DOCUMENT ---
Author Name yaima erwin Address Unknown Organization [facility] Address [address] [place] [address] Phone [phone] Care Team Providers Care Sweet Pickle Maker Name Role Phone Peter PINK, Daisy Unavailable ANAYA PINK, RAJWINDER Unavailable INSURANCE PROVIDERS Payer name Policy type / Coverage type [place] red republican ID [facility] [id number] Other [id number] HEALTHCARE AND FAMILY SERVICES Medicaid 0 [id number]
--- OUTSIDE RECORDS SUMMARY | 2024-08-02 16:43 | XMS_ITS | Encounter Summary ---
Author Organization [facility] Healthcare Address [address] [place] [address] Care Team Providers Care Manufacturing Engineer Machining Name Role Phone Chaparro Harris MD Primary Care Provider [phone] Jeff Umanzor MD Unavailable [phone] Encounter Details Date Type Department Care Team (Late st Contact Info) Description 07/07/2024 Telephone [facility] [address] [place] [address] Martha Stinson, ALEXANDER Social History Tobacco Use [...] on file Legal Sex Female 8:26 PM PAPER DELIVERER Gender Identity Not on file Sexual Orientation Not on file documented as of this encounter Plan of Treatment Not on file documented as of this encounter Visit Diagnoses Not on filedocumented in this encounter Care Teams Manufacturing Engineer Machining Relationship Specialty Start Date End Date Chaparro Harris MD [address] [place] [address] PCP - General Family Medicine 10/01/21 Jeff Umanzor MD [address] [place] [address] Referring Physician Obstetrics and Gynecology 08/10/23 documented as of this encounter
--- OUTSIDE RECORDS SUMMARY | 2024-08-02 16:43 | XMS_ITS ---
Author Organization [facility] Address [address] [facility] [place] [address] Care Team Providers Care Fruit Picker Machine Operator Name Role Phone Ju Maldonado Primary Care Provider [phone] REASON FOR VISIT sonamtoza pa Encounters Encounter Location Date Provider Diagnosis [facility] [address] [place] [address] 08/02/2024 Ju Maldonado Plan Of Treatment Next Appt Details Provider Name:Jupo Maldonado, 12:00:00 PM, [address] [place], [address], Progress Notes * AMITA LoubrianaDOB:1985 (39 yo F)Acc No.[id number]:08/02/2024 Patient:?Jazmyn LEVI :1985???Age:39 Y???Sex:Female Address:[address] [place], [address] * * Date:?
--- OUTSIDE RECORDS SUMMARY | 2024-08-02 16:43 | XMS_ITS | Clinical Summary ---
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 [...] loss Assessment & Plan (08/04/2022 4:53 PM SANE NURSE): Not well controlled, continues to have significant [...] (11/26/2021): Added automatically from request for surgery [id number] 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 Assessment & Plan (09/10/2021 1:05 PM SANE NURSE): Stable, well controlled; TSH at target Continue to check TSH related, no need for thyroid hormone at this time Assessment & Plan (06/25/2021 3:22 PM SANE NURSE): Stable, well controlled; continues to follow with Endocrinology; last TSH was normal, ultrasound reviewed No current medications AME (generalized anxiety disorder) 05/26/2018 Assessment & Plan (06/14/2024 3:04 PM SANE NURSE): Not well controlled, acutely worsened due to [...] BID Assessment & Plan (08/04/2022 4:52 PM SANE NURSE): Not well controlled; worsening; patient reports multiple [...] daily Assessment & Plan (09/10/2021 1:04 PM SANE NURSE): Not well controlled, continues to have elevated anxiety and panic attacks, severe anxiety associated with small health concerns Patient reports no relief previously with Lexapro sertraline Patient is unclear if she needs daily medications Continue bupropion 150 mg daily, Valium 5 mg nightly Assessment & Plan (06/25/2021 3:21 PM SANE NURSE): Stable, improving; patient reports decreased panic attacks on sertraline Continue Zoloft 50 mg daily, hydroxyzine 25 mg t.i.d. p.r.n. for panic attacks Iron deficiency anemia ever agudelo to inadequate dietary iron intake 02/04/2018 Assessment & Plan (09/15/2022 5:09 PM CDT): Stable, patient has iron infusion scheduled Assessment & Plan (09/10/2021 1:04 PM SANE NURSE): Stable, improving; no evidence of anemia or iron deficiency at this time; continue to monitor with regular CBCs Assessment & Plan (06/25/2021 3:22 PM SANE NURSE): Follows with Hematology for iron infusions Low [...] w/r/t gut microbiome. Referred to ADA and [employer] websites for additional information on topics including glycemic index/carbohydrate choices, protein sources. 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 Assessment & Plan (06/25/2021 3:23 PM SANE NURSE): Postsurgical changes, secondary to gastric sleeve in [...] been working on weight loss; follows with vocational technical education teacher, cutting back on coffee and trying to eat better Encourage 30 minutes moderate intensity exercise 5 days per week Assessment & Plan (09/10/2021 1:05 PM SANE NURSE): Not well controlled, patient has history of gastric sleeve, continues to have bowel issues associated gastric sleeve No significant change in weight, patient has been working on weight loss reports no significant changes Assessment & Plan (06/25/2021 3:24 PM SANE NURSE): Not well controlled; patient is status post [...] Department Care Team Description 07/27/2024 2:30 PM SANE NURSE Infusion [facility] [address] [facility] [address] [place] [phone] Other specified intestinal malabsorption (Primary Dx); Iron deficiency anemia secondary to inadequate dietary iron intake 07/26/2024 8:05 AM SANE NURSE Lab [facility] [address] [place] [address] 07/25/2024 Telephone [facility] [address] [place] [address] Blanca Christopher, ALEXANDER Forms Request 07/25/[address] [facility] Medical Group Diabetes Endocrine Care at [address] [place] [phone] Ramiro Pinedo, Vern's disease (Primary Dx) 07/21/2024 Telephone [facility] [address] [facility] [address] [place] [phone] Olga Sandoval RN 07/21/2024 Telephone [facility] [address] [facility] [address] [place] [phone] Chaparro Harris MD 07/20/2024 3:00 PM SANE NURSE Office Visit [facility] Department of Otolaryngology Head-Neck Division [address] [place] [phone] Darline Messina PA Geographic tongue (Primary Dx); Other lesions of oral mucosa 07/18/2024 Telephone [facility] [address] [place] [address] Blanca Christopher, ALEXANDER Additional Services Or Orders 07/15/2024 Telephone [facility] [address] [place] [address] Jody Jordan RN 07/14/2024 11:15 AM SANE NURSE Lab [facility] [address] [place] [address] 07/14/2024 10:55 AM SANE NURSE Lab [facility] [address] [place] [address] Fatigue, unspecified type; Iron deficiency; Vitamin D deficiency; B12 deficiency 07/14/2024 Telephone [facility] [address] [facility] [address] [place] [address] Eneida Sandoval RN 07/12/2024 Orders Only [facility] Minimally Invasive Surgery [address] [facility] [address] [place] [phone] Liana Bishop RN Gastroesophageal reflux disease without esophagitis (Primary Dx); Morbid obesity (HCC); S/P laparoscopic sleeve gastrectomy 07/12/2024 Telephone [facility] [address] [facility] Medicine 11th [place] [address] [place] [phone] Kiran Vanessa, [place] 07/07/2024 Telephone [facility] [address] [place] [phone] Martha Stinson RN 06/15/2024 4:00 PM SANE NURSE Office Visit [facility] Medical Group Diabetes Endocrine Care at [address] [place] [phone] Ramiro Pinedo, Vern's disease 06/09/2024 9:45 AM SANE NURSE Telemedicine [facility] [address] [place] [address] Chaparro Harris MD AME (generalized anxiety disorder) (Primary Dx) 06/08/2024 4:31 PM SANE NURSE - 06/08/2024 11:59 PM SANE NURSE Hospital Encounter [facility] Radiology [address] [place] [phone] Screening mammogram, encounter for Discharge Disposition: Discharge to home or self care 05/30/2024 Telephone [facility] [address] [place] [address] Jody Jordan, RN 05/17/[address] [facility] Medical Group Sleep Medicine at [address] [place] [address] Thom Doyle MD Pseudotumor cerebri (Primary Dx) 05/17/2024 Orders Only [facility] Sleep Medicine at [address] [place] [address] Thom Doyle MD 05/10/2024 1:15 PM SANE NURSE Office Visit [facility] [address] [place] [address] [address] [place] [address] Thom Doyle MD Chronic migraine without aura without status migrainosus, not intractable (Primary Dx) 05/05/2024 Telephone [facility] [address] [phone] Chaparro Harris MD Medication Problem from Last 3 Months Immunizations Name Administration Dates Next Due Influenza, Unspecified 06/02/2023,2021,08/21/2021(Deferred: Patient Refused),04/17/2021,04/16/2021(Deferred: Patient Refused),07/06/2020(Deferred: Patient Refused) Tdap 05/26/2018,07/06/2017 Surgical History Surgery Date Site/Laterality Comments [place] DELIVERY ONLY X 5 SLEEVE GASTROPLASTY 07/06/2015 [...] on file Legal Sex Female 8:26 PM SANE NURSE Gender Identity Not on file Sexual Orientation [...] g 8 8 MAO ,BABY BOY MICHELLE Trejo MD Delivery Location:[facility] 2011 Term C-Sec tion Last Filed Vital Signs Vital Sign Reading Time Taken Comments Blood Pressure 120/74 07/27/2024 2:21 PM SANE NURSE Pulse 78 07/27/2024 2:21 PM SANE NURSE Temperature 36.4 ??C (97.5 ??F) 07/27/2024 2:21 PM CS T Respiratory Rate 18 07/27/2024 2:21 PM SANE NURSE Oxygen Saturation 99% 07/27/2024 2:21 PM SANE NURSE Inhaled Oxygen Concentration - - Weight 119.3 kg (263 lb) 07/20/2024 2:32 PM SANE NURSE Height 162.6 cm (5' 4 ) 07/20/2024 2:32 PM SANE NURSE Body Mass Index 45.14 07/20/2024 2:32 PM SANE NURSE Plan of Treatment Health Maintenance Due Date [...] Diagnosis Comments CORTISOL Routine 07/26/2024 8:06 AM SANE NURSE FOLATE Routine 07/14/2024 11:30 AM SANE NURSE EGFR Routine 07/14/2024 11:10 AM SANE NURSE IODINE SERUM,PLASMA Routine 07/14/2024 1 1:10 AM SANE NURSE TSH Routine 07/14/2024 11:10 AM SANE NURSE THYROID PEROXIDASE ANTIBODY Routine 07/14/2024 11:10 AM SANE NURSE TESTOSTERONE, TOTAL AND FREE, SERUM Routine 07/14/2024 11:10 AM SANE NURSE T4, FREE Routine 07/14/2024 11:10 AM SANE NURSE T3, FREE Routine 07/14/2024 11:10 AM SANE NURSE PROGESTERONE Routine 07/14/2024 11:10 AM SANE NURSE LUTEINIZING HORMONE (LH) Routine 07/14/2024 11:10 AM SANE NURSE LIPID PANEL Routine 07/14/2024 11:10 AM SANE NURSE INSULIN, TOTAL Routine 07/14/2024 11:10 AM SANE NURSE HEMOGLOBIN A1C Routine 07/14/2024 11:10 AM SANE NURSE FOLLICLE STIMULATING HORMONE Routine 07/14/2024 11:10 AM SANE NURSE ESTRADIOL Routine 07/14/2024 11:10 AM SANE NURSE DHEA-SULFATE Routine 07/14/2024 11:10 AM SANE NURSE COMPREHENSIVE METABOLIC PANEL Routine 07/14/2024 11:10 AM SANE NURSE ACTH Routine 07/14/2024 11:10 AM SANE NURSE DIFFERENTIAL AUTO Routine 07/14/2024 10: 52 AM SANE NURSE Iron deficiency VITAMIN B12 Routine 07/14/2024 10:52 AM SANE NURSE B12 deficiency VITAMIN D 25 HYDROXY Routine 07/14/2024 10:52 AM SANE NURSE Vitamin D deficiency CBC WITH AUTO DIFFERENTIAL Routine 07/14/2024 10:52 AM SANE NURSE Iron deficiency IRON PROFILE W/ IBC Routine 07/14/2024 1 0:52 AM SANE NURSE Iron deficiency FERRITIN Routine 07/14/2024 10:52 AM SANE NURSE Iron deficiency ZINC Routine 07/14/2024 10:52 AM SANE NURSE Fatigue, unspecified type SCREENING MAMMOGRAM BILATERAL W BRIAN Schedule Routine, Read Routine (OP Routine) 06/08/2024 4:56 PM SANE NURSE Screening mammogram, encounter for HEPATITIS C ANTIBODY Routine 10/12/2023 9:08 AM CDT Screening for STDs (sexually transmitted diseases) from Last 3 Months or Most Recently Relevant to Health Maintenance Results * (ABNORMAL) Cortisol (07/26/2024 8:06 AM SANE NURSE) Cortisol 0.8(L) 4.8 - 19.5 mcg/dl Comment: Interpretive Data Normal Range: ??4.8 - 19.5 mcg/dL; ??Evening: ??Half of morning value. ?? This analyte undergoes marked diurnal variation. ??Ranges indicated apply to morning specimens. ?? Current interpretive data was last revised 2018. Testing performed by: [address] [id number] Blood 07/26/2024 8:06 AM SANE NURSE 07/26/2024 8:07 AM SANE NURSE Ju Maldonado MD LAB BLOOD ORDERABLES Odalys l Result Performing Organization Address City/[facility]/ZIP Co de Phone Number CATRINA MULLER KEKE) [address] [facility] [place] [address] * Folate (07/14/2024 11:30 AM SANE NURSE) Folic acid 7.9 >=5.0 ng/mL Comment: Hemolysis present. ??Results may be affected. Testing performed by: [address] [id number] Blood 07/14/2024 11:3 0 AM SANE NURSE 07/14/2024 1:26 PM SANE NURSE Ju Maldonado MD LAB BLOOD ORDERABLES Odalys l Result Performing Organization Address City/[facility]/ZIP Co de Phone Number CATRINA MULLER (ELKHART) 1 [facility] [employer] [place] [address] * eGFR (07/14/2024 11:10 AM SANE NURSE) eGFR >90 >=60 mL/min/1. 73 m2 Comment: [...] was last reviewed 2021. Testing performed by: [facility], [address] [place] [address], [place]., [address] Blood 07/14/2024 11:1 0 AM SANE NURSE 07/14/2024 10:41 PM SANE NURSE us Ju Maldonado MD LAB BLOOD ORDERABLES Odalys jennings Result [facility] ([place]) [address] [facility] Department [place] [address] * Iodine serum, plasma (07/14/2024 11:10 AM SANE NURSE) Pathologist [facility] Iodine 52 40 - 92 ng/mL [facility] Comment: ADDITIONAL INFORMATION This test was developed and its performance characteristics determined by [facility] in a manner consistent with CLIA requirements. This test has not been cleared or approved by the U.S. Food and Drug Administration. Test Performed by: [facility] - [facility] [address] [place] [address] Sweatband Maker: Kojo Alvarenga Ph.D.; CLIA# [id number] Testing performed by: [facility], [address] [place] [address]., [id number] Blood 07/14/2024 11:1 0 AM SANE NURSE 07/14/2024 10:34 PM SANE NURSE Ju Maldonado MD LAB BLOOD ORDERABLES Odalys l Result Performing Organization Address City/[facility]/ZIP Co de Phone Number [facility] ([place]) [address] [place] [address] [employer] [place] [address] [facility] ref [facility] * (ABNORMAL) Thyroid peroxidase antibody (TPO) (07/14/2024 11:10 AM SANE NURSE) Anti Thyroid Peroxidase 434(H) <=34 IUnits/mL Comment: ATPO Interpretive Data Results may be up to 28% higher in patients receiving Itraconazole. Current interpretive data was last revised 2020. Testing performed by: [facility], [address] [place] [address], [id number] Blood 07/14/2024 11:1 0 AM SANE NURSE 07/15/2024 10:04 AM SANE NURSE Ju Maldonado MD LAB BLOOD ORDERABLES Odalys l Result [facility] (KEKE) 1 [facility] [employer] [place] [address] * Progesterone (07/14/2024 11:10 AM SANE NURSE) Progesterone 2.35 ng/mL Comment: Interpretive Data Males: ?<0.15 ng/mL Females: ??Follicular ?<0.20 ng/mL ??Ovulation ? <4.1 ng/mL ??Luteal ?4.1 - ??14.5 ng/mL ??1st Trimester ?? 11.0 - ??44.0 ng/mL ??2nd Trimester ?? 25.0 - ??83.0 ng/mL ??3rd Trimester ?? 59.0 - 214.0 ng/mL ??Postmenopausal ??<0.13 ng/mL Current interpretive data was last revised 2021. Testing performed by: [facility], [address] [place] [address], [address] Blood 07/14/2024 11:1 0 AM SANE NURSE 07/15/2024 10:04 AM SANE NURSE Ju Maldonado MD LAB BLOOD ORDERABLES Odalys l Result Performing Organization Address City/[facility]/ZIP Co de Phone Number [facility] ([place]) [address] [place] [address] [employer] [place] [address] * (ABNORMAL) Insulin, total (07/14/2024 11:10 AM SANE NURSE) Insulin 28.0(H) 2.6 - 25.0 mcIUnit/mL Comment:Testing performed by : [facility], [address] [place] [address]., [id number] Blood 07/14/2024 11:1 0 AM SANE NURSE 07/15/2024 10:04 AM SANE NURSE Ju Maldonado MD LAB BLOOD ORDERABLES Odalys l Result [facility] (KEKE) 1 [facility] [place] [employer] [place] [address] * DHEA-sulfate (07/14/2024 11:10 AM SANE NURSE) Pathologist [facility] DHEA-S 73.5 60.9 - 337.0 mcg/dL Comment:Testing performed by : [facility], [address] [place] [address]., [id number] Blood 07/14/2024 11:1 0 AM SANE NURSE 07/15/2024 10:04 AM SANE NURSE Ju Maldonado MD LAB BLOOD ORDERABLES Odalys l Result Performing Organization Address City/[facility] Co de Phone Number [facility] ([place]) 1 [facility] [place] [employer] [place] [address] * Estradiol (07/14/2024 11:10 AM SANE NURSE) [facility] Estradiol 210.0 pg/mL Comment: Interpretive Data Males: 11 ? 43 pg/mL Females: Premenopausal: 31 ? 533 pg/mL Postmenopausal: < 50 pg/mL Patients treated with Fluvestrant (Faslodex) should be tested using an alternate assay such as LC-MS due to potential for cross-reactivity. Estradiol varies widely throughout the menstrual cycle. Current interpretive data was last revised 2024. Testing performed by: [facility], [address] [place] [address]., [address] Blood 07/14/2024 11:1 0 AM SANE NURSE 07/15/2024 10:04 AM SANE NURSE Ju Maldonado MD LAB BLOOD ORDERABLES Odalys l Result [facility] ([place]) 1 [facility] [employer] [place] [address] * ACTH (07/14/2024 11:10 AM SANE NURSE) [facility] ACTH 7.9 7.0 - 63.0 pg/mL Comment:Testing performed by : [facility], [address] [place] [address]., [id number] Blood 07/14/2024 11:1 0 AM SANE NURSE 07/15/2024 10:01 AM SANE NURSE Ju Maldonado MD LAB BLOOD ORDERABLES Odalys jennings Result Performing Organization Address City/[facility]/ZIP Co de Phone Number CATRINA TAPIA) 1 [facility] Department [place] [address] * (ABNORMAL) Testosterone, Total and Free, Serum (07/14/2024 11:10 AM SANE NURSE) Testosterone 95(H) 8 - 60 ng/dL [facility] Comment: ADDITIONAL INFORMATION Testing performed by Liquid Chromatography-Tandem Mass Spectrometry (LC-MS/MS). This test was developed and its performance characteristics determined by [facility] in a manner consistent with CLIA requirements. This test has not been cleared or approved by the U.S. Food and Drug Administration. Test Performed by: [facility] [place] [address] Sweatband Maker: Kojo Alvarenga Ph.D.; CLIA# [id number] Testing performed by: [facility], [address] [place] [address]., [address] Testosterone, free 1.27(H) <0.13 - 0.98 ng/dL CATRINA MULLER (KEKE) Comment: ADDITIONAL INFORMATION This test was developed and its performance characteristics determined by [facility] in a manner consistent with CLIA requirements. This test has not been cleared or approved by the U.S. Food and Drug Administration. Testing performed by: [facility], [address] [place] [address]., [id number] Blood 07/14/2024 11:1 0 AM SANE NURSE 07/14/2024 10:34 PM SANE NURSE Ju Maldonado MD LAB BLOOD ORDERABLES Odalys jennings Result CATRINA MULLER (KEKE) 1 [facility] Department [place] [address] [facility] ref Lab * T3, free (07/14/2024 11:10 AM SANE NURSE) Free T3 2.5 2.0 - 4.4 pg/mL Comment:Testing performed by : [facility], [address] [place] [address], [id number] Blood 07/14/2024 11:1 0 AM SANE NURSE 07/14/2024 11:10 AM SANE NURSE us Ju Maldonado MD LAB BLOOD ORDERABLES Odalys l Result CATRINA MULLER (ELKHART) 1 [facility] [place] [address] * TSH (07/14/2024 11:10 AM SANE NURSE) Pathologist [facility] Thyroid Stimulating Hormone 3.45 0.30 - 4.20 mcIUnit/mL Comment:Testing performed by : [facility], [address] [place] [address], [id number] Blood 07/14/2024 11:1 0 AM SANE NURSE 07/14/2024 11:10 AM SANE NURSE us Ju Maldonado MD LAB BLOOD ORDERABLES Odalys l Result CATRINA MULLER (ELKHART) 1 [facility] [place] [address] * (ABNORMAL) T4, free (07/14/2024 11:10 AM SANE NURSE) Free T4 0.88(L) 0.90 - 1.70 ng/dL Comment:Testing performed by : [facility], [address] [place] [address], [id number] Blood 07/14/2024 11:1 0 AM SANE NURSE 07/14/2024 11:10 AM SANE NURSE us Ju Maldonado MD LAB BLOOD ORDERABLES Odalys l Result Performing Organization Address City/[facility] Co de Phone Number CATRINA MULLER (ELKHART) 1 [facility] [place] [address] * (ABNORMAL) Hemoglobin A1c (07/14/2024 11:10 AM SANE NURSE) [facility] Hgb A1C 7.0(H) 4.0 - 5.6 % Comment:Testing performed by : [facility], [address] [place] [address]., [address] Estimated Average Glucose 154 mg/dL CATRINA MULLER (ELKHART) Comment: The ADA recommends reporting an estimated Average Glucose (eAG) with all Hemoglobin A1c results using the equation derived from a study of 507 normal and diabetic adults. ??Minority populations were underrepresented and children were not included. ?? (Diabetes Care 31:8830-6408, 2008). ??The eAG is not equivalent to a fasting glucose. Testing performed by: [facility], [address] [place] [address]., [id number] Blood 07/14/2024 11:1 0 AM SANE NURSE 07/14/2024 11:11 AM SANE NURSE us Ju Maldonado MD LAB BLOOD ORDERABLES Odalys l Result Performing Organization Address [facility] Co de Phone Number CATRINA MULELR (ELKHART) 1 [facility] [place] [employer] [place] [address] * LH (07/14/2024 11:10 AM SANE NURSE) Pathologist [facility] LH 14.1 IUnits/L Comment: Interpretive Data Males: ??Adults: ? 1.7 - 8.6 ?? IUnits/L Females: ?Follicular: ? 2.4 - 12.6 ??IUnits/L ??Ovulation: ? 14.0 - 95.6 ??IUnits/L ?Luteal: ? 1.0 - 11.4 ??IUnits/L ??Postmenopausal: 7.7 - 58.5 ??IUnits/L Current interpretive data was last revised on 2018. Testing performed by: [facility], [address] [place]., [address] Blood 07/14/2024 11:1 0 AM SANE NURSE 07/15/2024 10:04 AM SANE NURSE Ju Maldonado MD LAB BLOOD ORDERABLES Odalys l Result [facility] ([place]) [address] [facility] [address] * Follicle stimulating hormone (07/14/2024 11:10 AM SANE NURSE) FSH 2.7 IUnits/L Comment: Interpretive Data Male: Adults: ?1.5 - 12.4 IUnits/L Female: ?? Follicular: ?3.5 - 12.5 IUnits/L Ovulation: ? 4.7 - 21.5 IUnits/L Luteal: ?1.7 - 7.7 IUnits/L Postmenopausal: 25.8 - 134.8 IUnits/L Current interpretive data was last revised 2015. Testing performed by: [facility], [address] [place]., [address] Blood 07/14/2024 11:1 0 AM SANE NURSE 07/15/2024 10:04 AM SANE NURSE Ju Maldonado MD LAB BLOOD ORDERABLES Odalys l Result CATRINA MULLER (KEKE) [address] [facility] [address] * (ABNORMAL) Lipid panel (07/14/2024 11:10 AM SANE NURSE) Cholesterol 224(H) 30 - 199 mg/dL Comment: [...] last revised on 2018. Testing performed by: [facility], [address] [place] [address]., [address] Triglycerides 91 <=149 mg/dL CATRINA MULLER (KEKE) [...] last revised on 2018. Testing performed by: [facility], [address] [place] [address]., [address] HDL 66 >=40 mg/dL CATRINA MULLER (KEKE) [...] last revised on 2018. Testing performed by: [facility], [address] [place] [address]., [address] LDL, calculated 142(H) <=129 mg/dL CATRINA MULLER [...] last revised on 2024. Testing performed by: [facility], [address] [place] [address]., [address] Non-HDL Cholesterol 158 mg/dL CATRINA MULLER (KEKE) [...] last revised on 2018. Testing performed by: [address] [address] Chol/HDL ratio 3 CERNE R YOHANA (KEKE) Comment:Testing performed by : [address] [id number] Blood 07/14/2024 11:1 0 AM SANE NURSE 07/14/2024 11:10 AM SANE NURSE us Ju Maldonado MD LAB BLOOD ORDERABLES Odalys jennings Result CATRINA MULLER (KEKE) 1 [facility] [place] [address] * (ABNORMAL) Comprehensive metabolic panel (07/14/2024 11:10 AM SANE NURSE) Sodium 138 135 - 145 mmol/L Comment:Testing performed by : [address] [address] Potassium, pl 4.3 3.3 - 4.9 mmol/L CATRINA MULLER (KEKE) Comment:Testing performed by : [address] [address] Chloride 102 97 - 110 mmol/L CATRINA MULLER (KEKE) Comment:Testing performed by : [address] [address] CO2 24 22 - 32 mmol/L CATRINA MULLER (KEKE) Comment:Testing performed by : [address], [address] Anion gap 12 2 - 15 mmol/L [facility] (KEKE) Comment:Testing performed by : [address] [address] BUN 14 6 - 25 mg/dL [facility] ([facility]) Comment:Testing performed by : [address], [address] Creatinine 0.60 0.60 - 1.10 mg/dL [facility] ([facility]) Comment:Testing performed by : [address], [address] Glucose 109 70 - 199 mg/dL CERNER [...] was last revised 2022. Testing performed by: [address] [address] Calcium 8.9 8.5 - 10.3 mg/dL [facility] ([facility]) Comment:Testing performed by : [address], [address] Bilirubin, total 0.3 0.1 - 1.2 mg/dL [facility] ([facility]) Comment:Testing performed by : [address], [address] Protein, pl 7.3 6.5 - 8.5 g/dL [facility] ([facility]) Comment:Testing performed by : [address], [address] Albumin 4.0 3.5 - 5.0 g/dL [facility] ([facility]) Comment:Testing performed by : [address], [address] Alk phos 96 40 - 130 Units/L [facility] ([facility]) Comment:Testing performed by : [address] [place]., [address] ALT 67(H) 7 - 45 Units/L [facility] ([facility]) Comment:Testing performed by : [facility], [address] [place] [address], [address] AST 68(H) 10 - 45 Units/L [facility] ([facility]) Comment:Testing performed by : [facility], [address] [place] [address], [address] Blood 07/14/2024 11:1 0 AM SANE NURSE 07/14/2024 11:10 AM SANE NURSE us Ju Maldonado MD LAB BLOOD ORDERABLES Odalys jennings Result [facility] ([facility]) 1 [facility] [place] [address] * Differential, auto (07/14/2024 10:52 AM SANE NURSE) Neutrophil abs 4.0 1.5 - 6.5 K/cumm Comment:Testing performed by : [facility], [address] [place] [address]., [address] Imm gran abs 0.0 0.0 - 0.1 K/cumm [facility] ([facility]) Comment:Testing performed by : [facility], [address] [place] [address], [address] Lymphocyte abs 1.8 0.8 - 3.3 K/cumm [facility] ([facility]) Comment:Testing performed by : [address], [address] Monocyte abs 0.5 0.2 - 0.8 K/cumm [facility] ([facility]) Comment:Testing performed by : [address], [address] Eosinophil abs 0.1 0.0 - 0.5 K/cumm [facility] ([facility]) Comment:Testing performed by : [address], [address] Basophil abs 0.1 0.0 - 0.1 K/cumm [facility] ([facility]) Comment:Testing performed by : [facility], [address], [place]., [address] Neutrophil pct 62.5 % [facility] ([facility]) Comment: Interpretive Data Percent cell count reference ranges are not reported, since discordance with absolute values may lead to misinterpretation of CBC data. Current Interpretive Data was last revised on 2017. Testing performed by: [facility], [address] [place] [address]., [address] Imm gran pct 0.3 % [facility] ([facility]) Comment: Interpretive Data Percent cell count reference ranges are not reported, since discordance with absolute values may lead to misinterpretation of CBC data. Current Interpretive Data was last revised on 2017. Testing performed by: [facility], [address] [place] [address]., [address] Lymphocyte pct 28.1 % [facility] ([facility]) Comment: Interpretive Data Percent cell count reference ranges are not reported, since discordance with absolute values may lead to misinterpretation of CBC data. Current Interpretive Data was last revised on 2017. Testing performed by: [address] [address] Monocyte pct 7.1 % [facility] ([facility]) Comment: Interpretive Data Percent cell count reference ranges are not reported, since discordance with absolute values may lead to misinterpretation of CBC data. Current Interpretive Data was last revised on 2017. Testing performed by: [facility], [address] [place] [address]., [address] Eosinophil pct 1.1 % [facility] ([facility]) Comment: Interpretive Data Percent cell count reference ranges are not reported, since discordance with absolute values may lead to misinterpretation of CBC data. Current Interpretive Data was last revised on 2017. Testing performed by: [address] [address] Basophil pct 0.9 % [facility] ([facility]) Comment: Interpretive Data Percent cell count reference ranges are not reported, since discordance with absolute values may lead to misinterpretation of CBC data. Current Interpretive Data was last revised on 2017. Testing performed by: [address] [address] Blood 07/14/2024 10:5 2 AM SANE NURSE 07/14/2024 10:42 PM SANE NURSE Chaparro Harris MD LAB BLOOD ORDERABLES Odalys l Result Performing Organization Address [facility] Co de Phone Number [facility] ([place]) 1 [facility] [place] [address] * (ABNORMAL) Iron profile w/ IBC (07/14/2024 10:52 AM SANE NURSE) Pathologist [facility] Iron 39 35 - 145 mcg/dl Comment:Testing performed by : [facility], [address] [place] [address]., [address] TIBC 380 250 - 400 mcg/dL [facility] ([facility]) Comment:Testing performed by : [address], [address] Transferrin saturation 10(L) 20 - 50 % [facility] ([facility]) Comment:Testing performed by : [address], [address] Blood 07/14/2024 10:5 2 AM SANE NURSE 07/14/2024 10:42 PM SANE NURSE Chaparro Harris MD LAB BLOOD ORDERABLES Odalys l Result Performing Organization Address [facility] Co de Phone Number CATRINA MULLER ([place]) 1 [facility] [place] [address] * (ABNORMAL) CBC with auto differential (07/14/2024 10:52 AM SANE NURSE) [facility] WBC 6.3 3.8 - 9.9 K/cumm Comment:Testing performed by : [address] [address] Hgb 10.6(L) 11.9 - 15.5 g/dL [facility] ([facility]) Comment:Testing performed by : [address], [address] Hct 36.5 35.6 - 45.5 % [facility] ([facility]) Comment:Testing performed by : [address], [address] Plt 334 150 - 400 K/cumm [facility] ([facility]) Comment:Testing performed by : [facility], [address] [place] [address], [address] MPV 10.2 9.1 - 12.3 fL [facility] ([facility]) Comment:Testing performed by : [facility], [address] [place] [address], [address] RBC 4.31 3.90 - 5.20 M/cumm [facility] ([facility]) Comment:Testing performed by : [facility], [address] [place] [address], [address] MCV 84.7 81.3 - 96.4 fL [facility] ([facility]) Comment:Testing performed by : [address], [address] MCH 24.6(L) 27.1 - 33.3 pg [facility] ([facility]) Comment:Testing performed by : [address], [address] MCHC 29.0(L) 32.3 - 35.7 g/dL [facility] ([facility]) Comment:Testing performed by : [address], [address] RDW CV 14.6 11.1 - 14.9 % [facility] ([facility]) Comment:Testing performed by : [address], [address] RDW SD 45.3 35.7 - 48.1 fL [facility] ([facility]) Comment:Testing performed by : [address], [address] NRBC abs 0.00 0.00 - 0.01 K/cumm [facility] ([facility]) Comment:Testing performed by : [address], [address] Blood 07/14/2024 10:5 2 AM SANE NURSE 07/14/2024 10:42 PM SANE NURSE Narrative [facility]) - 07/14/2024 10:58 PM SANE NURSE fax to [phone] us Chaparro Harirs MD LAB BLOOD ORDERABLES Odalys jennings Result [facility] ([facility]) 1 [facility] [place] [address] * Zinc (07/14/2024 10:52 AM SANE NURSE) Zinc 75 60 - 106 mcg/dL [facility] Comment: ADDITIONAL INFORMATION This test was developed and its performance characteristics determined by [facility] in a manner consistent with CLIA requirements. This test has not been cleared or approved by the U.S. Food and Drug Administration. Test Performed by: [address] [address] Sweatband Maker: Kojo Alvarenga Ph.D.; CLIA# [id number] Testing performed by: [facility], [address] [place] [address], [address] Blood 07/14/2024 10:5 2 AM SANE NURSE 07/14/2024 10:42 PM SANE NURSE Chaparro Harris MD LAB BLOOD ORDERABLES Odalys l Result Performing Organization Address [facility] de Phone Number CATRINA M[facility] ([place]) [address] [place] [address] [place] [facility] * Vitamin D 25 hydroxy (07/14/2024 10:52 AM SANE NURSE) Pathologist [facility] Vitamin D 25-OH 30 30 - 80 ng/mL Comment:Testing performed by : [facility], [address] [place] [address]., [address] Blood 07/14/2024 10:5 2 AM SANE NURSE 07/14/2024 10:42 PM SANE NURSE Chaparro Harris MD LAB BLOOD ORDERABLES Odalys l Result Performing Organization Address City/[facility] Co de Phone Number CATRINA [facility] ([facility]) [address] [place] [address] * Ferritin (07/14/2024 10:52 AM SANE NURSE) Ferritin 15 15 - 150 ng/mL Comment:Testing performed by : [facility], [address] [place] [address], [address] Blood 07/14/2024 10:5 2 AM SANE NURSE 07/14/2024 10:42 PM SANE NURSE Chaparro Harris MD LAB BLOOD ORDERABLES Odalys l Result Performing Organization Address [facility] Co de Phone Number CATRINA MULLER [place]) 1 [facility] [place] [address] * Vitamin B12 (07/14/2024 10:52 AM SANE NURSE) Vitamin B12 492 230 - 1,250 pg/mL Comment:Testing performed by : [facility], [address] [place] [address], [address] Blood 07/14/2024 10:5 2 AM SANE NURSE 07/14/2024 10:42 PM SANE NURSE Chaparro Harris MD LAB BLOOD ORDERABLES Odalys l Result Performing Organization Address [facility] de Phone Number CATRINA M[facility]ER [place]) 1 [facility] [employer] [place] [id number] * Screening Mammogram Bilateral W Brian (06/08/2024 4:56 PM SANE NURSE) Anatomical Region Laterality Modality Breast Bilateral Mammography 06/09/2024 11:3 5 AM SANE NURSE Impressions 06/09/2024 11:35 AM SANE NURSE No evidence of malignancy in either breast. FINAL ASSESSMENT: BI-RADS Category 1: Negative. RECOMMENDATION: Recommend return for annual screening mammogram in 12 months. ?? Electronically signed by: Sonya Olsen M.D. Narrative 06/09/2024 11:35 AM SANE NURSE EXAMINATION: BILATERAL SCREENING MAMMOGRAM COMPARISON: All prior mammograms dating back to 2021. TECHNIQUE: Full-field 2D and digital breast tomosynthesis (DBT) images were obtained. CAD was utilized. BREAST PARENCHYMAL COMPOSITION: ??The breasts are almost entirely fatty. FINDINGS: There is no suspicious mass, calcification, or distortion in either breast. us Self Screening Mammogram IMG MAMMO PROCEDURES Fi [...] MICROBIOLOGY - GENERAL O RDERABLES Final Result [facility] [place] [facility] [address] [place] [address] from Last 3 Months or Most Recently Relevant to Health Maintenance Insurance [facility] Advance Directives For more information, please contact: [phone] * Full Code (Latest Code Status on File) Date Activated Date Inactivated Comments 11/27/2021 8:51 AM 11/27/2021 4:54 PM * Full Code Date Activated Date Inactivated Comments 11/27/2021 8:51 AM 11/27/2021 8:51 AM * Full Code Date Activated Date Inactivated Comments 02/09/2019 1:46 PM 02/09/2019 7:27 PM Care Teams Fabric Machine Operator Relationship Specialty Start Date End Date Chaparro Harris MD [address] [place] [address] PCP - General Family Medicine 10/01/21 Jeff Umanzor MD [address] [place] [address] Referring Physician Obstetrics and Gynecology 08/10/23
--- OUTSIDE RECORDS SUMMARY | 2024-08-02 16:43 | XMS_ITS | Encounter Summary ---
Author Organization [facility] [employer] [facility] Address [address] [place] [address] Care Team Providers Care Antique Clocks Repairer Name Role Phone Chaparro Harris MD Primary Care Provider [phone] Reason for Visit * Reason Onset Date Comments lab orders 08/25/2022 Encounter Details Date Type Department Care Team (Late Contact Info) Description 08/25/2022 Telephone [facility] Oncology and Hematology - [place] [address] [facility] [address] [place] [address] [place] [address] [place] [address] [address] [place] [address] lab orders Social History Tobacco Use Types Packs/Day Years Used Date Smoking Tobacco: Never Smokeless Tobacco: Never Alcohol Use Standard Drinks/Week Comments No 0 (1 standard drink = 0.6 oz pur e alcohol) Comments No Sex and Gender Information Value Date Recorded Sex Assigned at Not on file Legal Sex Female 5:58 AM BEND UP Gender Identity Not on file Sexual Orientation Not on file COVID-19 Exposure Response Date Recorded In the last 10 days, have yo u been in contact with someone who was confirmed or suspected to have Coronavirus/COVID-19? No / Unsure 08/26/2022 3:07 PM BEND UP documented as of this encounter Plan of Treatment Upcoming Encounters Date Type Department Care Team (Late Contact Info) Description 10/05/2024 3:45 PM CDT Office Visit [facility] Oncology and Hematology - [place] [address] [facility] [address] [place] [address] Codey Angeles MD [address] [facility] [address] [place] [address] Scheduled Orders Name Type Priority [...] (chronic) documented in this encounter Care Teams Antique Clocks Repairer Relationship Specialty Start Date End Date Chaparro Harris MD [address] [place] [address] PCP - General Family Practice 02/27/23 documented as of this encounter
--- OUTSIDE RECORDS SUMMARY | 2024-08-02 16:43 | XMS_ITS | Encounter Summary ---
Author Organization [facility] Healthcare Address [address] [place] [address] Care Team Providers Care Conductor/Brakeman Name Role Phone Chaparro Harris MD Primary Care Provider [phone] Jeff Umanzor MD Unavailable [phone] Reason for Visit * Auth/Cert (Routine) Specialty Diagnoses / Procedures Referred By Contac t Referred To Contact Diagnoses Rectal bleeding Rectal pain Rectal bleeding [K62.5] Rectal pain [K62.89] Procedures SD SIGMOIDOSCOPY FLX DX W/COLLJ SPEC BR/WA IF PFRMD SIGMOIDOSCOPY Referral ID Status Reason Start Date Expiration Date Visits Re quested Visits Authorized [id number] 1 1 Encounter Details Date Type Department Care Team (Late st Contact Info) Description 04/15/2024 Hospital Encounter [facility] [address] [place] [address] Laverne Monteiro MD [address] [place] [address] Social History Tobacco Use Types Packs/Day Years [...] on file Legal Sex 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
--- OUTSIDE RECORDS SUMMARY | 2024-08-02 16:43 | XMS_ITS ---
Author Organization [facility] Address [address] [place] [address] Care Team Providers Care Occupancy Specialist Name Role Phone Ju Maldonado Primary Care Provider [phone] REASON FOR VISIT Attempting to get INS information. Encounters Encounter Location Date Provider Diagnosis [facility] - Ju Maldonado [address] [place] [address] 08/01/2024 Ju Maldonado Plan Of Treatment Next Appt Details Provider Name:Ju Maldonado, 12:00:00 PM, [address], [place], [address], Progress Notes * Jazmyn LEVIDOB:1985 (39 yo F)Acc No.[id number]:08/01/2024 Patient:?Jazmyn LEVI :1985???Age:39 Y???Sex:Female Address:[address], [place], [address] * true * Date:? Generated for Printi ng/Faindiag/eTransmitting on:?08/02/2024 04:43 PM NURSING SCHEDULER
--- OUTSIDE RECORDS SUMMARY | 2024-08-02 16:43 | XMS_ITS | Data Portability ---
Author Organization [facility] [place] Address [address] [place] [address] [place] [address] Assessment Encounter Date Assessment Date Assessment LastModified by Organization Details LastModified Time 09/10/2021 09/10/2021 discussed normal US results reviewed and discussed CT and renal US results encouraged to follow up with urology since several urinary sx and since already has a urologist. precautions given. Not available 09/23/2021 09:28:07 Plan of Treatment Reminders Order Date Submit Date Provider Last Modified By Organization Details Last Modified Time Details Appointments None recorded. Lab urinalysis, dipstick 2021 022 [email or web address] [place], [address], [place], [address], 17:05:21 Referral None recorded. Procedures None recorded. Surgeries None recorded. Imaging MAMMO, diagnostic, digital, bilateral [address], [address] [place] [address], [address], 16:08:45 US, breast, unilateral [address], [address] [place] [address], [address], 16:08:45 US, pelvis 2021 022 [email or web address] [place], [address], [place], [address], 2 12:20:09 US, transvagina l 2021 022 [facility], [address], [address], [place], [address], 2 12:28:53 US, breast, bilateral, w/ axilla 2021 022 [facility], [facility] [address], [place], [address], 3 09:11:00 Medication Orders None recorded. Patient TargetsNo targets recorded. Patient InstructionsNo instructions recorded. Reason for Referral None Reported. Results Created Date Observation Date Name Description Value Unit Range Abnormal Flag Note LastModifiedBy Organization Detail LastModifiedTime 08/23/19 22 08/23/2021 CT/GC AND TRICH OMONA S VAGIN JOSSELYN (RRNA ), SWAB chlamydia trachomatis, PCR Negati ve negati ve Not Available [facility] (Lab) [address], [place], [address], 09/02/2021 16:08:28 08/23/19 22 08/23/2021 CT/GC AND TRICH OMONA S VAGIN JOSSELYN (RRNA ), SWAB neisseria gonorrhoeae, PCR Negati ve negati ve Not Available [facility] (Lab) [address], [place], [address], 09/02/2021 16:08:28 08/23/19 22 08/23/2021 CT/GC AND TRICH OMONA S VAGIN JOSSELYN (RRNA ), SWAB trichomonas vaginalis ribosomal RNA (rrna) Negati ve negati ve Not Available [facility] (Lab) [address], [place], [address], 09/02/2021 16:08:28 08/23/19 22 08/23/2021 MOBIL UNCUS MULIE RIS/C URTIS MICHELLE, RT-PC R, ONE SWAB nm bkr mobiluncus mulieris and mobiluncus curtisii by RT-PCR Negati ve Swab- 1 Vag Cerv Not Available [facility] (Lab) [address] [place], [address], 09/02/2021 16:08:28 08/23/19 22 08/23/2021 CAIN DA VAGIN ITIS PANEL RT-PC R, ONESW AB solomon albicans PCR Negati ve Swab- 1 Vag Cerv Not Available [facility] (Lab) [address] [facility], [place], [address], 09/02/2021 16:08:29 08/23/19 22 08/23/2021 CAIN DA VAGIN ITIS PANEL RT-PC R, ONESW AB solomon tropicalis PCR Negati ve Swab- 1 Vag Cerv Not Available [facility] (Lab) [address] [facility], [place], [address], 09/02/2021 16:08:29 08/23/19 22 08/23/2021 CAIN DA VAGIN ITIS PANEL RT-PC R, ONESW AB solomon parapsilosis PCR Negati ve Swab- 1 Vag Cerv Not Available [facility] (Lab) [address] [place], [address], 09/02/2021 16:08:29 08/23/19 22 08/23/2021 CAIN DA VAGIN ITIS PANEL RT-PC R, ONESW AB solomon glabrata PCR Negati ve Swab- 1 Vag Cerv Not Available [facility] (Lab) [address] [place], [address], 09/02/2021 16:08:29 08/23/19 22 08/23/2021 CAIN DA SYLVIE I BY RT-PC R solomon krusei by RT-PCR Negati ve Swab- 1 Vag Cerv Not Available [facility] (Lab) [address] [place], [address], 09/02/2021 16:08:29 08/23/19 22 08/23/2021 UROGE NITAL MYCOP LASMA /UREA PLASM A PANEL RT-PC R, ONESW AB nm bkr mycoplasma genitalium by RT-PCR Negati ve Swab- 1 Vag Cerv Not Available [facility] (Lab) [address] [facility], [place], [address], 09/02/2021 16:08:30 08/23/19 22 08/23/2021 UROGE NITAL MYCOP LASMA /UREA PLASM A PANEL RT-PC R, ONESW AB nm bkr mycoplasma hominis by RT-PCR Negati ve Swab- 1 Vag Cerv Not Available [facility] (Lab) [address] [place], [address], 09/02/2021 16:08:30 08/23/19 22 08/23/2021 UROGE NITAL MYCOP LASMA /UREA PLASM A PANEL RT-PC R, ONESW AB nm bkr ureaplasma urealyticum by RT-PCR Negati ve Swab- 1 Vag Cerv Not Available [facility] (Lab) [address] [facility], [place], [address], 09/02/2021 16:08:30 08/23/19 22 08/23/2021 BACTE RIAL VAGIN OSIS PANEL RT-PC R, ONESW AB gardnerella vaginalis PCR Negati ve Swab- 1 Vag Cerv Not Available [facility] (Lab) [address] [place], [address], 09/02/2021 16:08:30 08/23/19 22 08/23/2021 BACTE RIAL VAGIN OSIS PANEL RT-PC R, ONESW AB atopobium vaginae PCR Negati ve Swab- 1 Vag Cerv Not Available [facility] (Lab) [address] [place], [address], 09/02/2021 16:08:30 08/23/19 22 08/23/2021 BACTE RIAL VAGIN OSIS PANEL RT-PC R, ONESW AB bacterial vaginosis associated bacteria 2 (bvab2) Negati ve Swab- 1 Vag Cerv Not Available [facility] (Lab) [address] [place], [address], 09/02/2021 16:08:30 08/23/19 22 08/23/2021 BACTE RIAL VAGIN OSIS PANEL RT-PC R, ONESW AB megasphaera species (type 1 and type 2) PCR Negati ve (Type1 ,Type2 ) Swab- 1 Vag Cerv Type1 :Nega tive Type2 :Nega tive. Not Available [facility] (Lab) [address] [place], [address], 09/02/2021 16:08:30 08/23/19 22 08/23/2021 BACTE RIAL VAGIN OSIS PANEL RT-PC R, ONESW AB lactobacillu s (bvpanel) PCR See Commen t Swab- 1 Vag Cerv L.cri spatu s: Negat ellen L.carolyn senii : Negat ellen L.gas seri : Negat ellen L.ine rs : Posit ellen. Not Available [facility] (Lab) [address] [place], [address], 09/02/2021 16:08:30 09/05/19 22 09/04/2021 URINA LYSIS , WITH MICRO SCOPI C, REFLE X CULTU RE color, urine Yellow colorl ess, light yellow , yellow , dark yellow , straw Not Available [facility] (Lab) [address] [place], [address], 09/05/2021 01:44:58 09/05/19 22 09/04/2021 URINA LYSIS , WITH MICRO SCOPI C, REFLE X CULTU RE clarity, urine Cloudy Not Available [facility] (Lab) [address] [place], [address], 09/05/2021 01:44:58 09/05/19 22 09/04/2021 URINA LYSIS , WITH MICRO SCOPI C, REFLE X CULTU RE glucose, urine Negati ve mg/dL negati ve Not Available [facility] (Lab) [address] [place], [address], 09/05/2021 01:44:58 09/05/19 22 09/04/2021 URINA LYSIS , WITH MICRO SCOPI C, REFLE X CULTU RE bilirubin, urine Negati ve mg/dL negati ve Not Available [facility] (Lab) [address] [facility], [place], [address], 09/05/2021 01:44:58 09/05/19 22 09/04/2021 URINA LYSIS , WITH MICRO SCOPI C, REFLE X CULTU RE ketones, urine Negati ve mg/dL negati ve Not Available [facility] (Lab) [address] [facility], [place], [address], 09/05/2021 01:44:58 09/05/19 22 09/04/2021 URINA LYSIS , WITH MICRO SCOPI C, REFLE X CULTU RE pH, urine 6.0 . 5.0-9. 0 Not Available [facility] (Lab) [address] [facility], [place], [address], 09/05/2021 01:44:58 09/05/19 22 09/04/2021 URINA LYSIS , WITH MICRO SCOPI C, REFLE X CULTU RE specific gravity, urine 1.023 . 1.001- 1.035 Not Available [facility] (Lab) [address] [place], [address], 09/05/2021 01:44:58 09/05/19 22 09/04/2021 URINA LYSIS , WITH MICRO SCOPI C, REFLE X CULTU RE blood, urine Negati ve negati ve Not Available [facility] (Lab) [address] [place], [address], 09/05/2021 01:44:58 09/05/19 22 09/04/2021 URINA LYSIS , WITH MICRO SCOPI C, REFLE X CULTU RE protein, UA Negati ve mg/dL negati ve Not Available [facility] (Lab) [address] [place], [address], 09/05/2021 01:44:58 09/05/19 22 09/04/2021 URINA LYSIS , WITH MICRO SCOPI C, REFLE X CULTU RE urobilinogen , urine <2.0 mg/dL <2.0 Not Available [facility] (Lab) [address] [facility], [place], [address], 09/05/2021 01:44:58 09/05/19 22 09/04/2021 URINA LYSIS , WITH MICRO SCOPI C, REFLE X CULTU RE nitrite, urine Negati ve negati ve Not Available [facility] (Lab) [address] [facility], [place], [address], 09/05/2021 01:44:58 09/05/19 22 09/04/2021 URINA LYSIS , WITH MICRO SCOPI C, REFLE X CULTU RE leukocyte esterase, urine Negati ve florencia/u L negati ve Not Available [facility] (Lab) [address] [facility], [place], [address], 09/05/2021 01:44:58 09/05/19 22 09/04/2021 URINA LYSIS , WITH MICRO SCOPI C, REFLE X CULTU RE WBC, urine 0-5 /hpf none, 0-5 Not Available [facility] (Lab) [address] [place], [address], 09/05/2021 01:44:58 09/05/19 22 09/04/2021 URINA LYSIS , WITH MICRO SCOPI C, REFLE X CULTU RE RBC, urine 0-2 /hpf none, 0-2 Not Available [facility] (Lab) [address] [place], [address], 09/05/2021 01:44:58 09/05/19 22 09/04/2021 URINA LYSIS , WITH MICRO SCOPI C, REFLE X CULTU RE bacteria, urine Trace /hpf none abnormal Not Available [facility] (Lab) [address] [place], [address], 09/05/2021 01:44:58 09/05/19 22 09/04/2021 URINA LYSIS , WITH MICRO SCOPI C, REFLE X CULTU RE squamous epithelial cells, urine Many /hpf none abnormal Not Available [facility] (Lab) [address] [facility], [place], [address], 09/05/2021 01:44:58 09/05/19 22 09/04/2021 URINA LYSIS , WITH MICRO SCOPI C, REFLE X CULTU RE mucus, urine Modera te /hpf none, trace, few abnormal Not Available [facility] (Lab) [address] [facility], [place], [address], 09/05/2021 01:44:58 09/05/19 22 09/04/2021 URINA LYSIS , WITH MICRO SCOPI C, REFLE X CULTU RE amorphous crystal, urine Many /hpf none abnormal Not Available [facility] (Lab) [address] [facility], [place], [address], 09/05/2021 01:44:58 09/05/19 22 09/04/2021 URINA LYSIS , WITH MICRO SCOPI C, REFLE X CULTU RE calcium oxalate crystal, urine Many /hpf none abnormal Urine Cultu re not perfo rmed per refle x ancelmo col. Not Available [facility] (Lab) [address] [facility], [place], [address], 09/05/2021 01:44:58 09/11/19 22 09/10/2021 urina lysis , dipst ick Leukocytes neg Not Available Mukesh khan [address], [place], [address], 09/10/2021 17:05:08 09/11/19 22 09/10/2021 urina lysis , dipst ick Nitrite neg Not Available [address], [place], [address], 09/10/2021 17:05:08 09/11/19 22 09/10/2021 urina lysis , dipst ick Blood trace Not Available [place] [address], [place], [address], 09/10/2021 17:05:08 09/05/19 22 09/04/2021 US, pelvi s No observ ation record ed. [email or web address] [place] [address], [place], [address], 09/04/2021 12:28:43 09/05/19 22 09/04/2021 US, trans vagin al No observ ation record ed. [email or web address] [place] [address], [place], [address], 09/04/2021 12:28:53 09/05/19 22 09/04/2021 US, pelvi s No observ ation record ed. FRANK Briseyda [address], [place], [address], 10/01/2021 23:40:33 09/10/19 22 09/08/2021 CT, abdom en + pelvi s, w/ contr ast No observ ation record ed. [email or web address] [facility] (Radiology) [address] [facility] , [place], [address], 09/09/2021 20:20:14 09/11/19 22 09/10/2021 US, kidne y No observ ation record ed. [facility] [address], [place], [address], 09/10/2021 16:38:58 07/11/19 23 07/11/2022 US, kay selby, w/ axill a No observ ation record ed. [facility] [address], [place], [address], 07/11/2022 15:18:08 Result Notes None recorded. Problems Name Problem SNOMED Code Status Onset Date Resolution Date Notes Provider Name and Address Organization Details Recorded Time Pregnanc y test negative 475905901 Completed 201411/08/2020 Encounte r for pregnanc y test, result negative ;Practic e ID: 0001 Rosa nichole [facility] 16:24:30 Human papillom avirus deoxyrib onucleic acid detected , high risk on cervical specimen 226337087 Completed 201511/08/2020 Cervical high risk HPV DNA test positive ;Practic e ID: 0001 Rosa Houston [facility] 16:24:24 Low grade squamous intraepi thelial lesion on cervical Papanico laou smear 52349857636 105 Completed 201503/27/2021 Low grade intrepit h lesion cyto smr crvx (LGSIL); Practice ID: 0001 Ro Chris [facility] 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 16:24:33 Clinical finding Completed 201811/08/2020 Other specifie d disorder s of breast;P ractice ID: 0001 Rosa nichole [facility] 16:24:13 Screenin g for malignan t neoplasm of cervix Completed 201411/15/2020 Encounte r for screenin g for malignan t neoplasm of cervix;R ecorded Elsewher e: No Locat ion: Sin aldana [facility] S ource: [employer] Trader angel luis: N Practi ce ID: 0001 Tiago lable Time: 05:00:00 PM Ro nichole [facility] 16:55:10 Disorder of breast 75570928 Completed 201811/08/2020 Disorder of breast, unspecif ied;Maxwell rded Elsewher e: No [facility] [employer] Tr[employer] angel luis: N Practi ce ID: 0001 Tiago lable Time: 09:45:00 AM Rosa [place] [facility] 16:24:16 Finding of body mass index 727222522 Completed 201411/08/2020 Body mass index (BMI) 40.0-44. 9, adult;Re corded Elsewher e: No Locat ion: [facility] S ource: [employer] Tr[employer] angel luis: N Practi ce ID: 0001 Tiago lable Time: 05:00:00 PM Rosa Houston [facility] 16:24:18 Syphilis test finding 712186334 Completed 201411/08/2020 Encntr screen for infectio ns w sexl mode of transmis s;Record ed Elsewher e: No Locat ion: [facility] S ource: [employer] Tr[employer] angel luis: N Practi ce ID: 0001 Tiago lable Time: 05:00:00 PM Rosa Houston [facility] 16:24:36 Infectio n screenin g Completed 201411/08/2020 Encounte r for screenin g for oth infec/pa rastc diseases ;Recorde d Elsewher e: No Locat ion: [facility] S ource: [employer] Tr[employer] angel luis: N Practi ce ID: 0001 Tiago lable Time: 05:00:[address] [facility] 16:24:26 Genuine stress incontin ence 77394843 Completed 201411/08/2020 Stress incontin ence (female) (male);R ecorded Elsewher e: No Locat ion: [facility] S ource: [employer] Tr[employer] angel luis: N Practi ce ID: 0001 Tiago lable Time: 05:00:00 PM Rosa [place] [facility], [facility] 16:24:21 Problem Notes None recorded. Procedures Surgical History Date Name Laterality Status Provider Name and Address Organization Details Recorded Time 1 Date of Last Pap Smear completed [facility] 11/20/2020 10:22:52 6 Tubal Ligation completed [facility] 11/20/2020 12:05:25 6 section completed [facility] 11/20/2020 12:05:51 5 Colposcopy completed [facility] 11/15/2020 16:57:09 2 section completed [facility] 11/20/2020 12:05:46 0 section completed [facility] 11/20/2020 12:05:33 8 section completed [facility] 11/20/2020 12:05:10 9 section completed [facility] 11/20/2020 12:05:01 Tubal Ligation completed [facility] 03/27/2021 11:35:40 Imaging Results Imaging Date Name Status LastModified by Organization Details LastModified Time 09/04/2021 US, pelvis completed elisabeth Sauer [address], [place], [address], 09/04/2021 12:28:43 09/04/2021 US, transvaginal completed elisabeth aldana [address], [place], [address], 09/04/2021 12:28:53 09/04/2021 US, pelvis completed [facility] [address], [place], [address], 10/01/2021 23:40:33 09/08/2021 CT, abdomen + pelvis, w/ contrast completed [email or web address] [place] [address] (Radiology) 1 [facility] , [place], [address], 09/09/2021 20:20:14 09/10/2021 US, kidney completed [facility] [address], [place], [address], 09/10/2021 16:38:58 07/11/2022 US, breast, bilateral, w/ axilla completed [facility] [address] [facility] [address], [place], [address], 07/11/2022 15:18:08 Procedure Notes None recorded. Medical Equipment None Reported. Allergies Allergen ID Allergen Name Allergen Category Reaction Reaction Severity Criticality Documentation Date Start Date Code Code System Note Provider Name and Address Organization Details Recorded Time 54932 Non-stero idal anti-infl ammatory agent (product) medicatio n Not available Not available Not available 06/22/2020 61798 005 SNOMED Comme nt: [facility]; Not Available [facility] 0 14:24:36 Medications Name Sig Start Date [...] Quigley e: No Locat ion: [facility] Almita moran By: sgrotefe ndt Enco lesvia [...] Prescrib ed Elsewher e: Yes Loca tion: [facility] M odify By: dmrose E ncounter DateTime [...] Updated DateTime 03/27/2021 158.75 cm 46.1 kg/m2 656355.65 g Ro Chris PA - [facility] 03/27/2021 11:35:16 Date Recorded Systolic blood pressure Diastolic blood pressure Provider Name and Address Organization Details Last Updated DateTime 03/27/2021 126 mm[Hg] 82 mm[Hg] Cherelle Monge, [facility] [address], [place], [address], [facility] 03/27/2021 13:35:08 Date Recorded Body height Provider Name an d Address Organization Details Last Updated DateTime 08/23/2021 158.75 cm Ro Chris [facility] 08/23/2021 16:36:10 Date Recorded Body mass index (BMI) Body weight Systolic blood pressure Diastolic blood pressure Provider Name and Address Organization Details Last Updated DateTime 08/23/2021 47.7 kg/m2 193919.26 g 120 mm[Hg] 76 mm[Hg] Cherelle Monge, [facility] [address], [place], [address], [facility] 08/23/2021 17:17:24 Date Recorded Body height Body mass index (BMI) Body weight Systolic blood pressure Diastolic blood pressure Provider Name and Address Organization Details Last Updated DateTime 09/10/2021 158.75 cm 47 kg/m2 164611.6 1 g 140 mm[Hg] 81 mm[Hg] Lizz Moore [facility] 16:57:12 Date Recorded Body height Systolic blood pressure Diastolic blood pressure Provider Name and Address Organization Details Last Updated DateTime 07/03/2022 158.75 cm 130 mm[Hg] 80 mm[Hg] Gina Wodo [facility] 07/03/2022 13:01:35 Social History Question Answer Notes LastModified by Organizat ion Details LastModified Time Tobacco Smoking Status Never Smoker Odilon nichole, [facility] 09/04/2021 11:16:24 Do You Have An [...] Anxious, Or Unable To Sleep At Night)? [id number] Information not available 11/15/2020 Do You Use Any Illicit Or Recreational Drugs? No Information not available 11/15/2020 Do You Use Sunscreen Routinely? Yes Information not available 11/15/2020 Have You Used IV Drugs? No Information not available 03/27/2021 Sex: Unknown Functional Status Question Answer Note LastModified by Guanriat ion Details LastModified Time Are you able [...] SNOMED-CT Code Diagnosis ICD10 Code Diagnosis Note [id number] Tobin Joshi MD [facility] [address] [address] 11/08/2020 15:50:11 11/08/2020 16:51:03 Pain in pelvis 82711923 R10.2 This patient is a 35-year-ol d [...] already had some that was ineffectiv e. [id number] Karen Proctor [facility] [address],[facility] [place] [address] 11/12/2020 09:35:10 11/12/2020 10:32:41 Pain in pelvis 42184531 R10.2 This patient is a 35-year-ol d [...] already had some that was [facility]effectiv e. 18263 [facility] [address] [address] 11/20/2020 10:11:32 11/20/2020 11:10:58 Gynecologic examination 83930839 Z01.419 Take Calcium with Vitamin D 1200mg [...] Advise updated PCP visit to monitor BP. 15641 ABI Wills[facility] [address] [address] 03/27/2021 11:22:25 03/27/2021 14:53:58 Mass of left breast 5962876239 1697004 N64.4 Discussed exam today & imaging.Sh jovan [...] this patient? s visit, including available hand sales hunter upon arrive, hugh e check and being asked a series of screening questions. All staff wore face coverings during this encounter, as well as provided additional cleaning and sanitizing of all surfaces, including countertop s, pens, chairs, door handles, light switches, etc, prior to and following the patient? s visit. [id number] [facility] [address],[place] [address] 08/23/2021 16:18:03 08/23/2021 17:25:27 Vaginal pain 65212942 R10.2 Today we agreed to update std/vag [...] this patient? s visit, including available hand sales hunter upon arrive, temperatur e check and being asked a series of screening questions. All staff wore face coverings during this encounter, as well as provided additional cleaning and sanitizing of all surfaces, including countertop s, pens, chairs, door handles, light switches, etc, prior to and following the patient? s visit. [id number] Anna Michel [facility] [address],[place] [address] 09/04/2021 11:16:09 09/04/2021 12:03:33 Pain in pelvis 47593726 R10.2 [id number] Jody Hameed MD [facility] [address],[place] [address] 09/10/2021 16:41:21 09/23/2021 15:15:51 Urinary symptoms 944016373 R39.9 Pain in pelvis 36342090 R10.2 [id number] Norma Diaz [facility] [address],[place] [address] 07/03/2022 12:52:25 07/03/2022 15:02:31 Pain of breast 61070207 N64.4 Breast exam with no abnormal masses felt, tenderness in left breast from the 3 o'clock to 5 o'clock position.S he has had normal diagnostic mammogram last month - we do not have these records. Records requested. She has some minor irritation noted likely secondary to recently shaving. Avoid shaving until resolved.S he has an appointmen t scheduled with [facility] breast specialist next week - encouraged her [...] Patel Member ID Guarantor Name 03/27/2021 1 [facility] ON OR AFTER 01/03/21 (MEDICAID REPLACEMENT - HMO) [facility] [id number] [facility] 08/23/2021 1 [facility] - DOS ON OR AFTER 21 (MEDICAID REPLACEMENT - HMO) [facility] [id number] [facility] 09/04/2021 1 [facility] - DOS ON OR AFTER 21 (MEDICAID REPLACEMENT - HMO) [facility] [id number] [facility] 09/10/2021 1 [facility] - DOS ON OR AFTER 21 (MEDICAID REPLACEMENT - HMO) [facility] [id number] [facility] 07/03/2022 1 [facility] - DOS ON OR AFTER 21 (MEDICAID REPLACEMENT - HMO) [facility] [id number] [facility] Notes Date Note Type Note Provider Name [...] and it was completely WNL [facility] [address], [place], [address], [facility] 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 ABI Wills- [address] [address], [place], [address], [facility] 08/23/2021 17:24:06 09/10/2021 text/html Anity is here fo r follow up US for pelvic pain. US 3 showed normal uterus, normal right ovary, and left ovary with a 2.5cm simple cyst. She had a CT 09/08 in [place] for RLQ pain that was noral and a renal US 09/10 that was normal. UA with trace of blood. She also feels like she is incompletely emptying unless she pushes for a couple months. She had a cysto a couple years ago for hematuria with Kenneth at [facility]. Jody Hameed MD [address], [place], [address], [facility] 09/23/2021 09:28:27 07/03/2022 text/html 37yo Presents [...] present.She does not drink any caffeineSees a enrichment director for SOB, has felt chest pain in the past but none currentlyShe has an appointment next week to see a breast specialist at [facility] for [facility] management. ABI Cummins [address], [place], [address], [facility] 07/03/2022 14:18:17 OBGyn Episode Ob Episode Information Episode Created Date Number of Fetuses Patient Bloodtype Patient rh Status Prepregnancy Weight lbs Domestic Partner Domestic Partner Phone Father Name Harbor Boat Pilot Status 11/09/19 21 1 CLOSED Fetus Data [...] Domestic Partner Domestic Partner Phone Father Name Harbor Boat Pilot Status 11/09/19 21 1 CLOSED Fetus Data [...] Domestic Partner Domestic Partner Phone Father Name Harbor Boat Pilot Status 11/09/19 21 1 CLOSED Fetus Data First Name Last Name Admitted to NICU Weight (g) Sex Living Outcome Pediatric Complications Fetus ID Race Codes Race Delivery Type Full Term 9671 Repeat Omer Calculation Initial Omer Date Initial Exam Date Initial Exam Provider Initial Ultrasound Date Last Menstrual Period Date Ultra Sound Weeks Gestation 0 Eighteen To Twenty Week Moer Update Ultra Sound Date Fundal Height At [...] Domestic Partner Domestic Partner Phone Father Name Harbor Boat Pilot Status 11/09/19 21 1 CLOSED Fetus Data [...] Domestic Partner Domestic Partner Phone Father Name Harbor Boat Pilot Status 11/09/19 21 1 CLOSED Fetus Data [...]
--- OUTSIDE RECORDS SUMMARY | 2024-08-02 16:43 | XMS_ITS ---
Author Organization [facility] Address [address] [place] [address] Care Team Providers Care Milled Lumber Grader Name Role Phone Ju Maldonado Primary Care Provider REASON FOR VISIT CONCERNED ABOUT LABS Medications Medication SIG (Take, Route, Frequency, Duration) Notes Start Date End Date Status Liraglutide 18 MG/3ML inject 0.6 mg gianna y x 1 week then increase to 1.2 mg Subcutaneous daily for 90 days 07/27/2024 Active Verifine Insulin Pen Needle 32G X 6 MM inject victoza once daily, ok to use whatever insurance is willing to cover for 90 days 07/27/2024 Active Encounters Encounter Location Date Provider Diagnosis [facility] - Ju Maldonado [address] [place] [address] 07/26/2024 Ju Maldonado Type 2 diabetes toro itus with hyperglycemia E11.65 Assessments Encounter Date Diagnosis (ICD Code) Assessment Notes Treatment Notes Treatment Clinical Notes Section Notes 07/26/2024 Type 2 diabetes mellitus with hyperglycemia (ICD-10 - E11.65) Plan Of Treatment Medication Medication Name Sig Start Date Stop Date Notes Liraglutide 18 MG/3ML inject 0.6 mg gianna y x 1 week then increase to 1.2 mg Subcutaneous daily for 90 days 07/27/2024 Verifine Insulin Pen Needle 32G X 6 MM inject victoza once daily, ok to use whatever insurance is willing to cover for 90 days 07/27/2024 Next Appt Details Provider Name:Ju Maldonado, 12:00:00 PM, [address], [place], [address], Progress Notes * Jazmyn LEVIDOB:1985 (39 yo F)Acc No.[id number]:07/26/2024 Patient:?Jazmyn LEVI :1985???Age:39 Y???Sex:Female Address:[address] [place], [address] * Refills? Start Liraglutide Solution Pen-injector, 18 MG/3ML, Subcutaneous, 3, inject 0.6 mg daily x 1 week then increase to 1.2 mg, daily, 90 days, Refills=3 Start Verifine Insulin Pen Needle Miscellaneous, 32G X 6 MM, 90, inject victoza once daily, ok to use whatever insurance is willing to cover, 90 days, Refills=3 Subjective: * Chief Complaints: * ???CONCERNED ABOUT LABS * Medical History:? * Surgical History:? * Hospitalization/Major Diagno stic Procedure:? * Medications:? Objective: * Vitals:? * Physical Examination:? Assessment: * Assessment: 1.?Type 2 diabetes mellitus with hyperglycemia - E11.65 (Primary)??? Plan: * Treatment: * Procedure Codes:? * true * Date:? 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
--- OUTSIDE RECORDS SUMMARY | 2024-08-02 16:43 | XMS_ITS | Clinical Summary ---
Author Organization [facility] Address [address] [address] Phone Care Team Providers Care Sales Contractor Name Role Phone Provider, None Primary Care Provider Unavailabl e Allergies No known active allergies Medications No known medications Active Problems No known active problems Encounters Date Type Department Care Team Description 05/23/2024 7:00 PM SOAP DRIER TENDER - 05/23/2024 10:15 PM SOAP DRIER TENDER Emergency [facility] [address] [place] [address] Maurice Coy MD Acute nonintractable [...] Sex Assigned at Female 05/23/2024 7:05 PM SOAP DRIER TENDER Legal Sex Female 1:02 PM SOAP DRIER TENDER Gender Identity Female 05/23/2024 7:05 PM SOAP DRIER TENDER Sexual Orientation Not on file Last Filed Vital Signs Vital Sign Reading Time Taken Comments Blood Pressure 143/86 05/23/2024 8:00 PM SOAP DRIER TENDER Pulse 79 05/23/2024 10:00 PM SOAP DRIER TENDER Temperature 36.8 ??C (98.2 ??F) 05/23/2024 6:28 PM CS T Respiratory Rate 19 05/23/2024 6:28 PM SOAP DRIER TENDER Oxygen Saturation 100% 05/23/2024 10:00 PM SOAP DRIER TENDER Inhaled Oxygen Concentration - - Weight 117.9 kg (260 lb) 05/23/2024 6:28 PM SOAP DRIER TENDER Height 167.6 cm (5' 6 ) 05/23/2024 6:28 PM SOAP DRIER TENDER Body Mass Index 41.97 05/23/2024 6:28 PM SOAP DRIER TENDER Plan of Treatment Health Maintenance Due Date [...] CONTRAST Stat with Interpretation 05/23/2024 8:22 PM SOAP DRIER TENDER URINALYSIS REFLEX IF INDICATED BY ABNORMAL RESULTS STAT 05/23/2024 8:04 PM SOAP DRIER TENDER POCT URINE HCG () STAT 05/23/2024 8:03 PM SOAP DRIER TENDER BLUE TOP TUBE STAT 05/23/2024 6:41 PM SOAP DRIER TENDER CBC WITH AUTO DIFFERENTIAL STAT 05/23/2024 6:41 PM SOAP DRIER TENDER TROPONIN I, HIGH SENSITIVITY (HSTRP) STAT 05/23/2024 6:41 PM SOAP DRIER TENDER EXTRA TUBES STAT 05/23/2024 6:41 PM SOAP DRIER TENDER CMP (COMPREHENSIVE METABOLIC PANEL) STAT 05/23/2024 6:41 PM SOAP DRIER TENDER COMPLETE BLOOD COUNT (CBC) WITH DIFF STAT 05/23/2024 6:41 PM SOAP DRIER TENDER POCT GLUCOSE STAT 05/23/2024 6:38 PM SOAP DRIER TENDER EKG 12 LEAD STAT 05/23/2024 6:31 PM SOAP DRIER TENDER EKG SCAN 05/23/2024 12:00 AM SOAP DRIER TENDER from Last 3 Months Results * CT HEAD OR BRAIN WO CONTRAST (05/23/2024 8:22 PM SOAP DRIER TENDER) Anatomical Region Laterality Modality Head N/A Computed Tomogra phy 05/23/2024 9:26 PM SOAP DRIER TENDER Impressions 05/23/2024 9:29 PM SOAP DRIER TENDER IMPRESSION: 1. ?? No acute intracranial findings. Narrative 05/23/2024 9:29 PM SOAP DRIER TENDER EXAM DESCRIPTION: CT HEAD OR BRAIN WO [...] PM T: ??05/23/2024 9:26 PM Report ID: [id number] Reading Location: ??[id number] Procedure Note Chace Singer MD - 05/23/2024 [...] Chace Singer M.D. AT: AT Report ID: [id number] Reading Location: [id number] IMPRESSION: 1. No acute intracranial findings. Maurice Coy MD [facility] CT ORDERABLES Fi nal Result * (ABNORMAL) URINALYSIS REFLEX IF INDICATED BY ABNORMAL RESULTS (05/23/2024 8:04 PM SOAP DRIER TENDER) SPECIFIC GRAVITY 1.010 1.003 - 1.030 05/23/2024 8:40 PM SOAP DRIER TENDER [facility] URINE PH 7.0 5.0 - 9.0 05/23/2024 8:40 PM SOAP DRIER TENDER [facility] WBC ESTERASE 25 /ul(A) Negative 05/23/2024 8:40 PM SOAP DRIER TENDER [facility] NITRITE Negative Negative 05/23/2024 8:40 PM SOAP DRIER TENDER [facility] PROTEIN, RANDOM URINE 15 mg/dL(A) Negative 05/23/2024 8:40 PM SOAP DRIER TENDER [facility] URINE GLUCOSE, QUAL Negative Negative 05/23/2024 8:40 PM SOAP DRIER TENDER [facility] URINE KETONES Negative Negative 05/23/2024 8:40 PM SOAP DRIER TENDER [facility] UROBILINOGEN Normal Normal mg/dL 05/23/2024 8:40 PM SOAP DRIER TENDER [facility] URINE BLOOD Negative Negative renee/ul 05/23/2024 8:40 PM SOAP DRIER TENDER [facility] URINALYSIS COLOR Yellow 05/23/20 8:40 PM SOAP DRIER TENDER [facility] URINALYSIS CLARITY Slightly Cloudy 05/23/2024 8:40 PM SOAP DRIER TENDER [facility] WBC (Urine) 0-5 Negative, 0-5 /hpf 05/23/2024 8:40 PM SOAP DRIER TENDER [facility] URINE RBC'S 0-2 Negative, 0-2 /hpf 05/23/2024 8:40 PM SOAP DRIER TENDER [facility] EPITHELIAL CELLS Large amount squamous /lpf 05/23/2024 8:40 PM SOAP DRIER TENDER [facility] BACTERIA, URINE Few(A) Negative /hpf 05/23/2024 8:40 PM SOAP DRIER TENDER [facility] Urine URINE SPECIMEN / Unknown Non-Phlebotomy Collection / Unknown 05/23/2024 8:04 PM SOAP DRIER TENDER 05/23/2024 8:14 PM SOAP DRIER TENDER us Wendy Stoddard MD URINE ORDERABLES Final Result [facility] [address] [place] [address] * POCT Urine HCG () (05/23/2024 8:03 PM SOAP DRIER TENDER) [facility] POC URINE Negative POC URINE CONTROL Social Media Project Manager Pass Urine 05/23/2024 8:03 PM SOAP DRIER TENDER Wendy Stoddard MD POINT OF CARE TESTING (MANUAL ) Final Result * TROPONIN I, HIGH SENSITIVITY (HSTRP) (05/23/2024 6:41 PM SOAP DRIER TENDER) [facility] TROPONIN I, HIGH SENSITIVITY- RODRIGUEZ <3 <=14 ng/L 05/23/2024 10:01 PM SOAP DRIER TENDER [facility] Comment: High-sensitivity troponin I results are reported in ng/L making the result appear to be 1,000 times higher than the contemporary troponin I value which is reported in ng/ml. Results from [facility]. Blood Venipuncture / Unknown 05/23/2024 6:41 PM SOAP DRIER TENDER 05/23/2024 6:50 PM SOAP DRIER TENDER Maurice Coy MD CHEMISTRY ORDERABLES Final Result Performing Organization Address City/[facility]/ZIP Co de Phone Number [facility] [address] [place] [address] * Blue Top Tube (05/23/2024 6:41 PM SOAP DRIER TENDER) Blood No Phlebotomy Charged / Unknown 05/23/2024 6:41 PM SOAP DRIER TENDER 05/23/2024 6:53 PM SOAP DRIER TENDER Wendy Stoddard MD HEMATOLOGY ORDERABLES Final R esult [facility] [address] [place] [address] * CBC with Auto Differential (05/23/2024 6:41 PM SOAP DRIER TENDER) [facility] WBC 8.85 4.00 - 12.00 10(3)/mcL 05/23/2024 6:56 PM [facility] RBC 4.68 3.80 - 5.30 10(6)/mcL 05/23/2024 6:56 PM [facility] HEMOGLOBIN (HGB) 12.8 12.0 - 15.8 g/dL 05/23/2024 6:56 PM [facility] HEMATOCRIT (HCT) 39.2 36.0 - 47.0 % 05/23/2024 6:56 PM [facility] MCV 83.8 82.0 - 96.0 fL 05/23/2024 6:56 PM [facility] MCH 27.4 26.0 - 34.0 pg 05/23/2024 6:56 PM [facility] MCHC 32.7 31.0 - 36.0 g/dL 05/23/2024 6:56 PM [facility] PLATELET COUNT 353 140 - 440 10(3)/[facility] 05/23/2024 6:56 PM [facility] RDW 13.2 11.8 - 15.5 % 05/23/2024 6:56 PM [facility] MPV 9.7 9.7 - 12.4 fL 05/23/2024 6:56 PM [facility] NEUTROPHILS 56.2 47.0 - 73.0 % 05/23/2024 6:56 PM [facility] LYMPHOCYTES 35.3 18.0 - 42.0 % 05/23/2024 6:56 PM [facility] MONOCYTES 6.7 4.0 - 12.0 % 05/23/2024 6:56 PM [facility] EOSINOPHILS 1.2 0.0 - 5.0 % 05/23/2024 6:56 PM [facility] BASOPHILS 0.6 0.0 - 1.0 % 05/23/2024 6:56 PM [facility] ABSOLUTE NEUTROPHILS 4.98 1.60 - 7.70 10(3)/[facility] 05/23/2024 6:56 PM SOAP DRIER TENDER [facility] ABSOLUTE LYMPHOCYTES 3.12 1.30 - 3.20 10(3)/[facility] 05/23/2024 6:56 PM SOAP DRIER TENDER [facility] ABSOLUTE MONOCYTES 0.59 0.20 - 1.00 10(3)/[facility] 05/23/2024 6:56 PM SOAP DRIER TENDER [facility] ABSOLUTE EOSINOPHIL 0.11 0.00 - 0.40 10(3)/[facility] 05/23/2024 6:56 PM SOAP DRIER TENDER [facility] ABSOLUTE BASOPHILS 0.05 0.00 - 0.10 10(3)/[facility] 05/23/2024 6:56 PM SOAP DRIER TENDER [facility] NRBC PER 100 WBC 0 05/23/20 6:56 PM [facility] Blood Venipuncture / Unknown 05/23/2024 6:41 PM SOAP DRIER TENDER 05/23/2024 6:50 PM SOAP DRIER TENDER us Wendy Stoddard MD HEMATOLOGY ORDERABLES Final R esult [facility] [address] [place] [address] * (ABNORMAL) CMP (Comprehensive Metabolic Panel) (05/23/2024 6:41 PM SOAP DRIER TENDER) SODIUM 138 136 - 145 mmol/L 05/23/2024 7:14 PM [facility] POTASSIUM 3.9 3.5 - 5.1 mmol/L 05/23/2024 7:14 PM [facility] CHLORIDE 107 98 - 107 mmol/L 05/23/2024 7:14 PM [facility] CO2, VENOUS 23 22 - 30 mmol/L 05/23/2024 7:14 PM [facility] ANION GAP 11.9 <18.0 mmol/L 05/23/2024 7:14 PM [facility] GLUCOSE 93 70 - 99 mg/dL 05/23/2024 7:14 PM [facility] BUN 10 5 - 18 mg/dL 05/23/2024 7:14 PM [facility] CREATININE, BLOOD 0.73 0.60 - 1.00 mg/dL 05/23/2024 7:14 PM [facility] BUN/CREATININE RATIO 14 12 - 20 ratio 05/23/2024 7:14 PM [facility] TOTAL PROTEIN 7.9 6.3 - 8.2 g/dL 05/23/2024 7:14 PM [facility] ALBUMIN 4.3 3.5 - 5.0 g/dL 05/23/2024 7:14 PM [facility] A/G RATIO 1.2 1.0 - 2.2 05/23/2024 7:14 PM [facility] CALCIUM 9.6 8.7 - 10.5 mg/dL 05/23/2024 7:14 PM [facility] T BILI 0.3 0.2 - 1.2 mg/dL 05/23/2024 7:14 PM [facility] SGOT (AST) 47(H) 5 - 34 U/L 05/23/2024 7:14 PM [facility] SGPT (ALT) 51 0 - 55 U/L 05/23/2024 7:14 PM [facility] ALKALINE PHOSPHATASE 100 40 - 150 U/L 05/23/2024 7:14 PM [facility] GFR, ESTIMATED >60 >=60 05/23/2024 7:14 PM [facility] Comment: Creatinine Clearance is the preferred criteria for selecting drug dose adjustments in renally impaired patients. ??The GFR is provided as additional pertinent clinical information. GFR is reported in mL/min/1.73 sq m. Calculation based on the Chronic Kidney Disease Epidemiology Collaboration (CKD- EPI) equation refit without adjustment for race. GFR, EST. >60 >=60 024 7:14 PM [facility] GFR, EST. NONAFRICAN >60 >=60 05/23/2024 7:14 PM SOAP DRIER TENDER [facility] Blood Venipuncture / Unknown 05/23/2024 6:41 PM SOAP DRIER TENDER 05/23/2024 6:50 PM SOAP DRIER TENDER us Wendy Stoddard MD CHEMISTRY ORDERABLES Final Re sult Performing Organization Address City/[facility] Co de Phone Number [facility] [address] [place] [address] * POCT Glucose (05/23/2024 6:38 PM SOAP DRIER TENDER) Pathologist [facility] GLUCOSE,BEDSIDE POCT 91 70 - 99 mg/dL 05/23/2024 6:54 PM SOAP DRIER TENDER [facility] Blood 05/23/2024 6:38 PM SOAP DRIER TENDER 05/23/2024 6:54 PM SOAP DRIER TENDER us None Provider POINT OF CARE TESTING Final Resu lt Performing Organization Address [facility] Co de Phone Number [facility] [address] [place] [address] * EKG 12 LEAD (05/23/2024 6:31 PM SOAP DRIER TENDER) Ventricular Rate 79 BPM EXTERNAL EKG Atrial Rate 79 BPM EXTERNAL EKG P-R Interval 160 ms EXTERNAL EKG QRS Duration 86 ms EXTERNAL EKG Q-T Duration 394 ms EXTERNAL EKG QTC CALCULATION 451 ms EXTERNAL EKG P Bascom 33 degrees EXTERNAL EKG R Bascom 13 degrees EXTERNAL EKG T Bascom 30 degrees EXTERNAL EKG 05/23/2024 6:31 PM SOAP DRIER TENDER Impressions EXTERNAL EKG - 05/24/2024 1:00 PM SOAP DRIER TENDER Normal sinus rhythm Normal ECG When compared with ECG of 03/27/2024 No significant change was found ~ ~ Confirmed by RUBÉN FERRARO ([id number]) on 05/24/2024 1:00:31 PM Narrative Procedure Note Rubén Ferraro MD - 05/24/2024 IMPRESSION: Normal sinus rhythm Normal ECG When compared with ECG of 03/27/2024 No significant change was found ~ ~ Confirmed by RUBÉN FERRARO ([id number]) on 05/24/2024 1:00:31 PM us Wendy Stoddard MD IMG ECG ORDERABLES Final Resu lt EXTERNAL EKG * EKG SCAN (05/23/2024 12:00 AM SOAP DRIER TENDER) 05/23/2024 us Provider Scan IMG ECG ORDERABLES Final Result RESULTING AGENCY from Last 3 Months Insurance MEDICAID [facility] Care Teams Sales Contractor Relationship Specialty Start Date End Date Provider, None [place] PCP - General 08/05/22
--- OUTSIDE RECORDS SUMMARY | 2024-08-02 16:44 | XMS_ITS | Patient Health Summary ---
Author Organization [facility] Address [address] [place] [address] Care Team Providers Care Study Assistant Name Role Phone Addie Jennings MD Unavailable [phone] Thang Heck MD Primary Care Provider [phone] Note from [facility],non-owned Affiliates and Associated Physician Practices is amultiple site organization consisting of ambulatory clinics and hospital sitesin [place], [place], [place]. This disclosure is being madepursuant to the Care Everywhere program and may not contain all information available regarding this patient. Last updated 18.[facility] Allergies * Nsaids(Other) -Low Criticality Medications * Be aware that medications may not be up to date on this document. Alwaysverify current medications with the patient. * HYDROcodone-acetaminophen ([place]) 5-325 MG tablet(Started 05/31/2022) TAKE 1 OR [...] Comments Blood Pressure 136/73 07/03/2022 3:58 PM ARCHITECTURAL MODEL MAKER Pulse 85 07/03/2022 3:58 PM ARCHITECTURAL MODEL MAKER Temperature 37.1 ??C (98.7 ??F) 07/03/2022 3:58 PM CS T Respiratory Rate 16 07/03/2022 3:58 PM ARCHITECTURAL MODEL MAKER Oxygen Saturation 100% 07/03/2022 3:58 PM ARCHITECTURAL MODEL MAKER Inhaled Oxygen Concentration - - Weight 117.9 kg (260 lb) 07/03/2022 3:58 PM ARCHITECTURAL MODEL MAKER Height 162.6 cm (5' 4 ) 07/03/2022 3:58 PM ARCHITECTURAL MODEL MAKER Body Mass Index 44.63 07/03/2022 3:58 PM ARCHITECTURAL MODEL MAKER Procedures * LAB RESULTS ORDER(Performed 02/25/2023) * [...] ORDERABLES * EKG 12-LEAD (07/03/2022 6:37 PM ARCHITECTURAL MODEL MAKER) Only the most recent of2 resultswithin the time period is included. Ventricular Rate 75 BPM [facility] Atrial Rate 75 BPM [facility] P-R Interval 164 ms [facility] QRS Duration ms 86 ms [facility] Q-T Interval ms 380 ms [facility] QTC Calculation (Bezet) 424 ms [facility] Calculated P [place] 29 degrees [facility] Calculated R [place] 14 degrees [facility] Calculated T [place] 28 degrees [facility] Interpretation EKG Normal sinus rhythm Normal ECG No previous ECGs available Confirmed by SAÚL HENDERSON MD ([id number]) on 07/05/2022 3:15:08 PM [facility] 07/03/2022 6:37 PM ARCHITECTURAL MODEL MAKER 07/05/2022 3:15 PM ARCHITECTURAL MODEL MAKER Chastity Almita Deng PA-C ECG ORDERABLES [facility] * XR CHEST PA AND LATERAL (07/03/2022 4:21 PM ARCHITECTURAL MODEL MAKER) Only the most recent of2 resultswithin the time period is included. Anatomical Region Laterality Modality Chest Radiographic Chanda ging 07/03/2022 4:30 PM ARCHITECTURAL MODEL MAKER Impressions 07/03/2022 4:30 PM ARCHITECTURAL MODEL MAKER IMPRESSION: No acute cardiopulmonary findings. > Interpreting Provider: Tram Rodríguez MD on 07/03/2022 4:30 PM Narrative 07/03/2022 4:30 PM ARCHITECTURAL MODEL MAKER PROCEDURE(s): XR CHEST 2VW; DATE AND TIME OF EXAM(s): 07/03/2022 4:22 PM; LOCATION: [facility] INDICATION(s): R07.89: Other chest pain. COMPARISON(s): None available. FINDINGS: The cardiomediastinal silhouette is normal. The pulmonary vasculature is unremarkable. The lungs are clear. There is no pleural effusion. There is no pneumothorax. The osseous structures are grossly unremarkable. Procedure Note Tram Rodríguez MD - 07/03/2022 PROCEDURE(s): XR CHEST 2VW; DATE AND TIME OF EXAM(s): 07/03/2022 4:22PM; LOCATION: [facility] INDICATION(s): R07.89: Other chest pain. COMPARISON(s): None available. FINDINGS: The cardiomediastinal silhouette is normal. The pulmonary vasculature is unremarkable. The lungs are clear. There is no pleural effusion. There is no pneumothorax. The osseous structures are grossly unremarkable. IMPRESSION: No acute cardiopulmonary findings. > Interpreting Provider: Tram Rodríguez MD on 07/03/2022 4:30 PM Radha Lara OYSTER PLANTER-SENIOR ACCOUNTS PAYABLE SPECIALIST DIAGNOSTIC IMAGIN G ORDERABLES * CARDIAC RHYTHM STRIP ORDER (06/05/2022 12:47 PM ARCHITECTURAL MODEL MAKER) Narrative 06/05/2022 12:47 PM ARCHITECTURAL MODEL MAKER Ordered by an unspecified provider. Scanned Document CARDIAC SERVICES ORD ERABLES * GROSS + MICRO EXAM (ILL) (06/04/2022 11:12 AM ARCHITECTURAL MODEL MAKER) Case Report Surgical Pathology Report ? Case: [id number] ? Authorizing Provider: ??Irma Elizabeth MD ??Collected: ? 06/04/2022 11:12 AM ? Ordering Location: ? [facility] ?Received: ?06/05/2022 12:27 PM ? Pathologist: ? Jack Hernández MD ? Specimen: ?Antrum Biopsy, Antrum biopsy R/O H Pylori ? 06/06/2022 9:11 AM ARCHITECTURAL MODEL MAKER [facility] Final Diagnosis Gastric biopsies, antrum: Mild chronic gastritis, H&E sections negative for Helicobacter (see comment). Comment: Helicobacter pylori stain is pending results will follow in an addendum. 06/06/2022 9:[address] [facility] Microscopic Description and Comment Microscopic examination is performed and substantiates the above diagnosis. 06/06/2022 9:[address] [facility] Gross Description The requisition and specimen(s) are identified with the patient's name (Jazmyn San), MRN, and . Received in formalin, specimen antrum biopsy R/O H pylori , are 2 malhotra-pink tissues, 0.2 x 0.2 x 0.2 cm and 0.4 x 0.3 x 0.3 cm. The specimen is submitted in toto in cassette A1. AW 06/06/2022 9:[address] [facility] Disclaimer The performance characteristics of all immunohistochemical and indirect immunofluorescence stains (if any) cited in this report were determined by the Histopathology Laboratory of [facility]. Some of these tests were developed by [...] H&E slides and special stains prepared at [facility], [place]. [address] (CLIA# [id number]) unless otherwise specified. This case was interpreted by the [facility] Department of Pathology. When applicable, select reference laboratory testing is performed at the [facility], [address] [place] [address]. 06/06/2022 9:[address] [facility] Embedded Images 06/06/2022 9:[address] [facility] Pathology/Cytology GASTRIC ANTRAL BIOPSY SPECIMEN / Unknown 06/04/2022 11:12 AM ARCHITECTURAL MODEL MAKER 06/05/2022 12:27 PM ARCHITECTURAL MODEL MAKER Comment:Pre-op diagnosis: Gastroesophageal reflux disease, unspecified whether esophagitis present [K21.9] Status post bariatric surgery [Z98.84] Irma Elizabeth MD LAB - PATHOLOGY/ CYTOLOGY ORDERABLES [facility] [address] * CT LUMBAR SPINE WO CONTRAST (04/20/2022 3:02 PM CDT) Anatomical Region Laterality Modality Spine Computed Tomogra phy 04/20/2022 3:01 PM CDT Impressions 04/20/2022 9:25 PM CDT IMPRESSION: 1.No evidence of acute fracture in the lumbar spine. 2.Diffuse disc bulge at L3-L4, L4-L5 and L5-S1, without central canal or neuroforaminal stenosis. Report dictated by Chas Vega MD (resident physician in radiology) I, Syed Cassidy MD have personally reviewed [...] stenosis. Report dictated by Chas Vega MD (resident physician in radiology) I, Syed Cassidy MD have personally reviewed and interpreted this examination/study. > Interpreting Provider: Syed Cassidy MD on 04/20/2022 9:25 PM Sanjuanita Mix OYSTER PLANTER-SENIOR ACCOUNTS PAYABLE SPECIALIST CT ORDERABLES * (ABNORMAL) URINALYSIS W/MICROSCOPIC NO CULTURE (04/20/2022 1:22 PM CDT) Color UA Yellow Straw, Yellow 04/20/2022 1:33 PM CDT [facility] Clarity UA Slt Cloudy(A) Clear 04/20/2022 1:33 PM CDT [facility] Specific [place] UA 1.021 1.005 - 1.030 04/20/2022 1:33 PM [facility] pH UA 5.0 5.0 - 8.0 pH 04/20/2022 1:33 PM [facility] Protein UA Negative Negative 04/20/2022 1:33 PM [facility] Glucose UA Negative Negative 04/20/2022 1:33 PM [facility] Ketone UA Negative Negative 04/20/2022 1:33 PM [facility] Bilirubin UA Negative Negative 04/20/2022 1:33 PM [facility] Blood UA 2+(A) Negative 04/20/2022 1:33 PM [facility] Nitrite UA Negative Negative 04/20/2022 1:33 PM [facility] Leukocyte Esterase Negative Negative 04/20/2022 1:33 PM [facility] Urobilinogen UA Negative Negative mg/dL 04/20/2022 1:33 PM [facility] RBC UA 3-5 None Seen, 0-2, 3-5 /HPF 04/20/2022 1:33 PM [facility] WBC UA 0-5 None Seen, 0-5 /HPF 04/20/2022 1:33 PM [facility] Bacteria UA Trace(A) None /HPF 04/20/2022 1:33 PM [facility] Squamous Epithelial Cells UA 0-2 None Seen, 0-2, 3-5 /HPF 04/20/2022 1:33 PM [facility] Mucus UA 1+ /LPF 04/20/2022 1:33 PM [facility] Hyaline Casts UA 0-2 None Seen, 0-2 /LPF 04/20/2022 1:33 PM [facility] Urine URINE SPECIMEN OBTAINED BY CLEAN CATCH PROCEDURE / Unknown Collection / Unknown 04/20/2022 1:22 PM CDT 04/20/2022 1:25 PM [facility] - 04/20/2022 1:33 PM CDT Sanjuanita Mix OYSTER PLANTER-SENIOR ACCOUNTS PAYABLE SPECIALIST LAB - URINALYS IS ORDERABLES [facility] [address] [place] [phone] [phone] * CBC W AUTO DIFFERENTIAL (04/20/2022 1:22 PM [facility]) Only the most recent of9 resultswithin the time period is included. WBC 7.3 3.5 - 10.5 10? 3 /uL 04/20/2022 1:29 PM [facility] RBC 4.68 3.80 - 5.20 10? 6 /uL 04/20/2022 1:29 PM [facility] Hemoglobin 13.9 12.0 - 15.6 g/dL 04/20/2022 1:29 PM [facility] Hematocrit 41.7 35.0 - 45.0 % 04/20/2022 1:29 PM [facility] MCV 89.1 80.7 - 98.3 fL 04/20/2022 1:29 PM [facility] MCH 29.7 26.7 - 34.0 pg 04/20/2022 1:29 PM [facility] MCHC 33.3 30.8 - 35.9 g/dL 04/20/2022 1:29 PM [facility] Platelet Count 317 150 - 400 10? 3 /uL 04/20/2022 1:29 PM [facility] RDW-SD 42.5 36.0 - 50.0 fL 04/20/2022 1:29 PM [facility] RDW-CV 13.0 11.2 - 14.8 % 04/20/2022 1:29 PM [facility] MPV 9.4 9.4 - 12.9 fL 04/20/2022 1:29 PM [facility] nRBC Absolute 0.00 0 10? 3 /uL 04/20/2022 1:29 PM [facility] nRBC Auto 0.0 0 /100 WBC 04/20/2022 1:29 PM [facility] Neutrophils % 69.0 35.0 - 70.0 % 04/20/2022 1:29 PM [facility] Lymphocytes % 22.5 20.0 - 43.0 % 04/20/2022 1:29 PM [facility] Monocytes % 6.2 5.0 - 13.0 % 04/20/2022 1:29 PM CDT [facility] Eosinophils % 1.5 0.0 - 6.0 % 04/20/2022 1:29 PM CDT [facility] Basophil % 0.5 0.0 - 2.0 % 04/20/2022 1:29 PM CDT [facility] Neutrophils Absolute 5.04 1.60 - 7.00 10? 3 /uL 04/20/2022 1:29 PM CDT [facility] Lymphocyte Absolute 1.64 1.10 - 3.90 10? 3 /uL 04/20/2022 1:29 PM CDT [facility] Monocytes Absolute 0.45 0.26 - 1.07 10? 3 /uL 04/20/2022 1:29 PM T [facility] Eosinophils Absolute 0.11 0.00 - 0.47 10? 3 /uL 04/20/2022 1:29 PM CDT [facility] Basophils Absolute 0.04 0.00 - 0.08 10? 3 /uL 04/20/2022 1:29 PM CDT [facility] Immature Granulocytes % 0.3 0.0 - 1.0 % 04/20/2022 1:29 PM CDT [facility] Immature Granulocytes Absolute 0.02 04/20/2022 1:29 PM [facility] Blood BLOOD SPECIMEN / Unknown Venipuncture / Unknown 04/20/2022 1:22 PM CDT 04/20/2022 1:26 PM CDT Sanjuanita Mix [employer] PL[employer]SENIOR ACCOUNTS PAYABLE SPECIALIST LAB - HEMATOLO GY ORDERABLES [facility] [address] [place] [address], [facility] [phone] * (ABNORMAL) COMPREHENSIVE METABOLIC PANEL (04/20/2022 1:22 PM CDT) Only the most recent of3 resultswithin the time period is included. BUN 13 7 - 26 mg/dL 04/20/2022 1:55 PM CDT [facility] Creatinine 0.74 0.56 - 0.96 mg/dL 04/20/2022 1:55 PM [facility] Sodium 143 136 - 145 mmol/L 04/20/2022 1:55 PM [facility] Potassium 3.7 3.5 - 4.5 mmol/L 04/20/2022 1:55 PM [facility] Chloride 107 98 - 107 mmol/L 04/20/2022 1:55 PM [facility] CO2 28 22 - 29 mmol/L 04/20/2022 1:55 PM [facility] Glucose 128(H) 70 - 115 mg/dL 04/20/2022 1:55 PM [facility] Calcium 9.4 8.4 - 10.2 mg/dL 04/20/2022 1:55 PM [facility] Protein Total 7.5 6.0 - 8.3 g/dL 04/20/2022 1:55 PM [facility] Albumin 3.9 3.4 - 5.0 g/dL 04/20/2022 1:55 PM [facility] Bilirubin Total 0.3 0.2 - 1.2 mg/dL 04/20/2022 1:55 PM [facility] Alkaline Phosphatase 72 40 - 150 U/L 04/20/2022 1:55 PM [facility] ALT 32 5 - 55 U/L 04/20/2022 1:55 PM [facility] AST 24 5 - 34 U/L 04/20/2022 1:55 PM [facility] Anion Gap 12 8 - 18 04/20/2022 1:55 PM [facility] BUN/Creatinine Ratio 18 7 - 23 04/20/2022 1:55 PM [facility] Osmolality Calculated 298 270 - 300 mOsm/kg 04/20/2022 1:55 PM [facility] Albumin/Globulin Ratio 1.1 1.1 - 2.3 04/20/2022 1:55 PM [facility] eGFR by CKD-EPI >90 >=90 mL/min/1.7 3 m2 04/20/2022 1:55 PM [facility] Blood BLOOD SPECIMEN / Unknown Venipuncture / Unknown 04/20/2022 1:22 PM CDT 04/20/2022 1:26 PM CDT Sanjuanita Mix [employer] PLANTER-SENIOR ACCOUNTS PAYABLE SPECIALIST LAB - CHEMISTR Y ORDERABLES Performing Organization Address [facility]/ZIP Co de Phone Number [facility] [address] [place] [address], [place] [phone] * HCG BETA BLOOD QUANTITATIVE (04/20/2022 1:22 PM CDT) [facility] Beta-hCG Total Quantitative <3 mIU/mL 04/20/2022 2:01 PM CDT [facility] Comment: This assay is cleared for use [...] CDT 04/20/2022 1:26 PM CDT Sanjuanita Mix APRN-SENIOR ACCOUNTS PAYABLE SPECIALIST LAB - CHEMISTR Y ORDERABLES Performing Organization Address [facility] Co de Phone Number [address] [address], [place] [phone] * T4 FREE ICMA (01/31/2020 2:04 PM CDT) [facility] T4 Free 0.94 ng/dL [facility] ACCOUNT BILL Comment: Reference Range: >=20y: 0.82 - 1.77 Blood BLOOD SPECIMEN / Unknown 01/31/2020 2:04 PM CDT 01/31/2020 Narrative Resulting Agency Comment Lab Testing performed at: [facility] [address] [place] [address] ??[facility] [phone] Addie Jennings MD LAB - CHEMISTRY OR DERABLES [facility] ACCOUNT BILL [address] [place] [address] * TSH ICMA (01/31/2020 2:04 PM CDT) TSH ICMA 2.4 uU/mL [facility] ACCOUNT BILL Comment: Reference Range: Non- Adult 0.450-4.500 First Trimester 0.100-4.000 Second Trimester 0.200-4.000 Third Trimester 0.300-4.500 Blood BLOOD SPECIMEN / Unknown 01/31/2020 2:04 PM CDT 01/31/2020 Narrative Resulting Agency Comment Lab Testing performed at: [facility] [address] [place] [address] ??[facility] [phone] Addie Jennings MD LAB - CHEMISTRY OR DERABLES Performing Organization Address City/[facility] Co de Phone Number [facility] ACCOUNT BILL [address] [place] [address] * TSH (01/03/2019 1:40 PM CDT) Only the most recent of4 resultswithin the time period is included. TSH 1.7600 0.358 - 3.74 uIU/mL [facility] INSURANCE BILL Blood BLOOD SPECIMEN / Unknown 01/03/2019 1:40 PM CDT 01/03/2019 Narrative Resulting Agency Comment Lab Testing performed at: [address] ??[facility] [phone] Addie Jennings MD LAB - CHEMISTRY OR DERABLES Performing Organization Address City/[facility] Co de Phone Number [facility] INSURANCE BILL [address] [place] [address] * VITAMIN D 25-HYDROXY (12/28/2018 7:38 AM [...] Resulting Agency Comment Lab Testing performed at: [address] ??[facility] [phone] Lottie Verduzco OYSTER PLANTER-SENIOR ACCOUNTS PAYABLE SPECIALIST LAB - CHEMI STRY ORDERABLES Performing Organization Address [facility] de Phone Number [facility] ACCOUNT BILL [address] [place] [address] * VITAMIN B12 FOLATE PANEL (12/28/2018 7:38 AM CDT) Only the most recent of2 resultswithin the time period is included. Vitamin B12 344 213 - 816 pg/mL [facility] ACCOUNT BILL Folate 11.0 7.0 - 31.4 ng/mL [facility] ACCOUNT BILL Comment:FASTING Blood BLOOD SPECIMEN / Unknown 12/28/2018 7:38 AM CDT 12/28/2018 Narrative Resulting Agency Comment Lab Testing performed at: [address] ??[facility] [phone] Lottie Verduzco OYSTER PLANTER-SENIOR ACCOUNTS PAYABLE SPECIALIST LAB - CHEMI STRY ORDERABLES Performing Organization Address [facility] de Phone Number [facility] ACCOUNT BILL [address] [place] [address] * (ABNORMAL) LIPID PROFILE (12/28/2018 7:38 AM CDT) Cholesterol 220(H) <200 mg/dL [facility] ACCOUNT BILL Triglycerides 101 <150 mg/dL [facility] ACCOUNT BILL HDL Cholesterol 63 >40 mg/dL [facility] ACCOUNT BILL VLDL Calculated 20(L) >=30 mg/dL [facility] ACCOUNT BILL LDL Calculated 137(H) <130 mg/dL [facility] ACCOUNT BILL Comment:FASTING Blood BLOOD SPECIMEN / Unknown 12/28/2018 7:38 AM CDT 12/28/2018 Narrative Resulting Agency Comment Lab Testing performed at: [address] ??[facility] [phone] Lottie Verduzco OYSTER PLANTER-SENIOR ACCOUNTS PAYABLE SPECIALIST LAB - CHEMI STRY ORDERABLES [facility] ACCOUNT BILL [address] [place] [address] * US SOFT TISSUE HEAD NECK (09/21/2018) Anatomical Region Laterality Modality Head Ultrasound 09/21/2018 Impressions 09/21/2018 THYROID ULTRASOUND ?? DATE: 09/21/2018 ?? EDUCATION ASSOCIATE: Dr. Jennings ?? 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, goiter [...] (ABNORMAL) THYROID PEROXIDASE ANTIBODY (06/25/2018 9:13 AM ARCHITECTURAL MODEL MAKER) Thyroid Peroxidase TPO Antibody >600(H) 0 - 34 IU/mL [facility] ACCOUNT BILL Blood BLOOD SPECIMEN / Unknown 06/25/2018 9:13 AM ARCHITECTURAL MODEL MAKER 06/25/2018 Narrative Resulting Agency Comment [facility] [address] ??[facility] [phone] Lottie Verduzco OYSTER PLANTER-SENIOR ACCOUNTS PAYABLE SPECIALIST LAB - CHEMI STRY ORDERABLES [facility] ACCOUNT BILL [address] [place] [address] * T4 FREE (06/25/2018 9:13 AM ARCHITECTURAL MODEL MAKER) Only the most recent of2 resultswithin the time period is included. T4 Free 1.01 0.65 - 1.34 ng/dL [facility] ACCOUNT BILL Blood BLOOD SPECIMEN / Unknown 06/25/2018 9:13 AM ARCHITECTURAL MODEL MAKER 06/25/2018 Narrative Resulting Agency Comment [facility] [address] [facility] ??[facility] [phone] Lottie Verduzco APRN-SENIOR ACCOUNTS PAYABLE SPECIALIST LAB - CHEMI STRY ORDERABLES Performing Organization Address City/[facility]/ZIP Co de Phone Number [facility] ACCOUNT BILL [address] [place] [address] * (ABNORMAL) IRON + TIBC + FERRITIN (06/25/2018 9:12 AM ARCHITECTURAL MODEL MAKER) TIBC 361 250 - 450 ug/dL [facility] ACCOUNT BILL UIBC 314 131 - 425 ug/dL [facility] ACCOUNT BILL Iron 47 27 - 159 ug/dL [facility] ACCOUNT BILL Iron Saturation 13(L) 15 - 55 % [facility] ACCOUNT BILL Ferritin 9(L) 15 - 150 ng/mL [facility] ACCOUNT BILL Blood BLOOD SPECIMEN / Unknown 06/25/2018 9:12 AM ARCHITECTURAL MODEL MAKER 06/25/2018 Narrative Resulting Agency Comment [facility] [address] ??[facility] [phone] Lottie Verduzco OYSTER PLANTER-SENIOR ACCOUNTS PAYABLE SPECIALIST LAB - CHEMI STRY ORDERABLES [facility] ACCOUNT BILL [address] [place] [address] * IMAGING RADIOLOGY XRAY RESULTS ORDER (06/18/2018) Only the most recent of3 resultswithin the time period is included. Anatomical Region Laterality Modality Other Scanned Document IMAGING * US BREAST RIGHT LTD (05/07/2018 10:11 AM CDT) Anatomical Region Laterality Modality Breast Right Ultrasound 05/07/2018 9:36 AM CDT Addenda Addendum by Mellisa Drake MD on 06/04/2018 11:19 AM ARCHITECTURAL MODEL MAKER Previous mammograms from [facility] on 04/10/2016 and 03/27/2016 are now available [...] participate in the care of your patient. [facility] utilizes [employer] as a reminder system to notify [...] utilized. PRIOR: Previous mammogram was performed at [facility]. This was not available for [...] utilized. PRIOR: Previous mammogram was performed at [facility]. This was not available for [...] participate in the care of your patient. [facility] utilizes [employer] as a reminder system to notify patients of their next recommended mammogram. Reading Radiologist: Mellisa Drake MD on 05/07/2018 at 10:53 AM Mellisa Drake MD US ORDERABLES * ALIZE DIAG DIRECT DIG IMAGE BILATERAL [id number] (05/07/2018 9:24 AM CDT) Anatomical Region Laterality Modality Breast Bilateral Mammography 05/07/2018 9:36 AM CDT Addenda Addendum by Mellisa Drake MD on 06/04/2018 11:19 AM ARCHITECTURAL MODEL MAKER Previous mammograms from [facility] on 04/10/2016 and 03/27/2016 are now available [...] of your patient. [facility] utilizes [employer] as a reminder system to notify [...] utilized. PRIOR: Previous mammogram was performed at [facility]. This was not available for [...] utilized. PRIOR: Previous mammogram was performed at [facility]. This was not available for [...] participate in the care of your patient. [facility] utilizes [employer] as a reminder system to notify [...] BLOOD ??385 ?mg/dL ?240-450 SATURATION % BLOOD ([facility]) ? 5 ?% ?20-50 ?L Blood BLOOD SPECIMEN / Unknown 10/27/2017 1:21 PM CDT 10/27/2017 Narrative Resulting Agency Comment [facility] [address] [place] [address] ??[facility] [phone] Maurice Overton MD LAB - CHEMISTRY MEL MARTINES [facility] ACCOUNT BILL [address] [place] [address] * GROSS + MICRO EXAM (04/05/2010 5:00 [...] 350 grams. Cassettes A and B ?? [place] sections of the placental disc. Cassette C ?? [place] sections of umbilical cord and membranes. [facility] Microscopic Exam ? Microscopic examination reveals a [...] membranes with ?no pathologic changes SS/na [employer]attling [employer] Tender ? na Pathologist ?Nahomi Parnell MD [place]. ?04/08/2010 1527 <1> CPT code ? 36703 MISCELLANEOUS SAMPLES / Unknown 04/05/2010 5:00 AM [...] DO LAB - BLOOD GASES OR DERABLES [facility] [address] [place] [address] * (ABNORMAL) BLOOD GASES CORD VENOUS (04/05/2010 3:53 AM CDT) pH Cord Venous 7.289 7.18 - 7.33 [facility] pCO2 Cord Venous 62.0(H) 43 - 55 mm Hg [facility] pO2 Cord Venous 26.5 22 - 33 mm Hg [facility] Base Excess Cord Venous 0.8 -2.0 - 2.0 [facility] HCO3 Cord Venous 29.1 mmol/L [facility] CORD BLOOD SPECIMEN / Unknown 04/05/2010 3:53 AM CDT 04/05/2010 3:55 AM CDT Apple Sullivan DO LAB - BLOOD GASES OR DERABLES Performing Organization Address City/State/[facility] Co de Phone Number [facility] [address] [place] [address] * XR CHEST 1VW PORTABLE (04/03/2010 8:40 [...] included. ABO Rh O Pos SEE BELOW [facility] Comment: Weak D testing is not performed at [facility] Antibody Screen Neg [facility] Number of Units 4 [facility] Previous History Check Done Historical blood type on record, type verification complete. [facility] BLOOD SPECIMEN / Unknown 04/02/2010 5:36 AM CDT 04/02/2010 5:52 AM CDT Leyla Peres MD LAB - BLOOD BANK O RDERABLES Performing Organization Address [facility] de Phone Number [facility] [address] [place] [phone] * (ABNORMAL) PT PTT PANEL (04/02/2010 5:36 AM CDT) Only the most recent of4 resultswithin the time period is included. PT 9.3(L) 9.4 - 11.4 seconds [facility] INR 0.88 SEE BELOW [facility] Comment: Conventional anticoagulation ?? 2.0-3.0 Intensive anticoagulation ?? 2.5-3.5 PTT 26.0 24.0 - 33.0 seconds [facility] BLOOD SPECIMEN / Unknown 04/02/2010 5:36 AM CDT 04/02/2010 5:50 AM CDT Amari Huston Jr., MD LAB - COA CHEPELATION ORDERABLES Performing Organization Address [facility] de Phone Number [facility] [address] [place] [id number] * FIBRINOGEN ACTIVITY (04/02/2010 5:36 AM CDT) Only the most recent of5 resultswithin the time period is included. Fibrinogen 342 150 - 450 mg/dl [facility] BLOOD SPECIMEN / Unknown 04/02/2010 5:36 AM CDT 04/02/2010 5:50 AM CDT Amari Huston Jr., MD LAB - COA CHEPELATION ORDERABLES Performing Organization Address [facility] de Phone Number [facility] [address] [place] [phone] * MRI PELVIS NON CONTRAST (04/01/2010 9:30 [...] Region Laterality Modality Other Buzz Doe MD [facility] ORDERABLES * (ABNORMAL) URINALYSIS ROUTINE AUTO (03/30/2010 3:00 PM CDT) Source Clean Catch [facility] Color UA Yellow [facility] Character UA Clear [facility] Glucose UA NEGATIVE NEGATIVE mg/dl [facility] Bilirubin UA NEGATIVE NEGATIVE [facility] Ketone UA 40(H) NEGATIVE mg/dl [facility] Specific [place] UA >=1.030(H) 1.003 - 1.030 [facility] Blood UA LARGE(H) NEGATIVE [facility] pH UA 5.5 5.0 - 9.0 [facility] Protein UA NEGATIVE NEGATIVE-TR VICKEY mg/dl [facility] Urobilinogen UA 0.2 0.2 - 1.0 Kendrick Units/dl [facility] Nitrite UA NEGATIVE NEGATIVE [facility] Leukocyte UA NEGATIVE NEGATIVE [facility] WBC UA None Seen 0 - 2 HPF [facility] RBC UA 1-3 None Seen HPF [facility] Epithelial Cell UA 1-2 None Seen HPF [facility] URINE SPECIMEN OBTAINED BY CLEAN CATCH PROCEDURE / Unknown 03/30/2010 3:00 PM CDT 03/30/2010 3:28 PM CDT Yoselin Rudd MD LAB - URINALYSIS OR DERABLES Performing Organization Address [facility] Co de Phone Number [facility] [address] [place] [phone] * CHLAMYDIA + GC DNA PROBE AMPLIFIED (03/30/2010 3:00 PM CDT) Chlamydia trachomatis Amplified Probe NEGATIVE NEGATIVE [facility] GC Amplified Probe NEGATIVE NEGATIVE [facility] Comment Amplified Probe [facility] Comment: ? Results based on detection/no detection of ribosomal ? RNA by amplified method. PART OF UTERINE CERVIX / Unknown 03/30/2010 3:00 PM CDT 03/30/2010 3:42 PM CDT Yoselin Rudd MD LAB - MICROBIOLOGY ORDERABLES Performing Organization Address [facility] Co de Phone Number [facility] [address] [place] [address] * CULTURE URINE (03/30/2010 3:00 PM CDT) Report [facility] Comment: Final - CULTURE <10,000 colonies/ml Mixed gram positive abram. Org 1 ?<10,000 colonies/ml ?gram positive cocci ?morphologically identical to ?culture done ??03/30/10 ?(Group B beta strep) ? URINE SPECIMEN OBTAINED BY CLEAN CATCH PROCEDURE / Unknown 03/30/2010 3:00 PM CDT 03/30/2010 3:42 PM CDT Yoselin Rudd MD LAB - MICROBIOLOGY ORDERABLES [facility] [address] [place] [address] * CULTURE STREP B (03/30/2010 3:00 PM CDT) Report [facility] Comment: Final - CULTURE BETA HEMOLYTIC STREP GROUP B ?Moderate growth ?Notified Josefa ?Valentine(rbr)03/31/10(dmt) ?If treatment is indicated, the ?organism can be expected to ?be susceptible to ?penicillins, cephalosporins ?and macrolides. ?Bacteremia/serious ?infection may require the ?addition of an ?aminoglycoside ? PART OF UTERINE CERVIX / Unknown 03/30/2010 3:00 PM CDT 03/30/2010 3:42 PM CDT Yoselin Rudd MD LAB - MICROBIOLOGY ORDERABLES [facility] [address] [place] [address] * PTT (03/30/2010 3:00 PM CDT) PTT 26.4 24.0 - 33.0 seconds [facility] BLOOD SPECIMEN / Unknown 03/30/2010 3:00 PM CDT 03/30/2010 5:48 PM CDT Yvonne Pickard MD LAB - COAGULATION OR DERABLES Performing Organization Address [facility] Co de Phone Number [facility] [address] [place] [address] * (ABNORMAL) PT-INR (03/30/2010 3:00 PM CDT) PT 9.3(L) 9.4 - 11.4 seconds [facility] INR 0.88 SEE BELOW [facility] Comment: Conventional anticoagulation ?? 2.0-3.0 Intensive anticoagulation ?? 2.5-3.5 BLOOD SPECIMEN / Unknown 03/30/2010 3:00 PM CDT 03/30/2010 3:35 PM CDT Yoselin Rudd MD LAB - COAGULATION O RDERABLES Performing Organization Address [facility] Co de Phone Number [facility] [address] [place] [address] * DRUG SCREEN TRIAGE PANEL (03/30/2010 3:00 PM CDT) Phencyclidine Screen Urine Negative Negative ng/ml [facility] Benzodiazepines Screen Urine Negative Negative ng/ml [facility] Cocaine Screen Urine Negative Negative ng/ml [facility] Amphetamines Screen Urine Negative Negative ng/ml [facility] Cannabinoids Screen Urine Negative Negative ng/ml [facility] Opiate Screen Urine Negative Negative ng/ml [facility] Barbiturates Screen Urine Negative Negative ng/ml [facility] URINE / Unknown 03/30/2010 3 :00 PM CDT 03/30/2010 3:29 PM CDT Yoselin Rudd MD LAB - URINE MOTORCYCLE DESIGNER RY ORDERABLES Performing Organization Address [facility] Co de Phone Number [facility] [address] [place] [phone] Care Teams Study Assistant Relationship Specialty Start Date End Date Thang Heck MD [address] [place] [address] [facility] - General 06/10/22 Addie Jennings MD [address] [facility] [address] [place] [phone] [facility] 01/31/20
--- OUTSIDE RECORDS SUMMARY | 2024-08-02 16:44 | XMS_ITS | Referral Summary ---
Author Organization [facility] Address [address] [place] [address] Care Team Providers Care Printed Forms Proofreader Name Role Phone Addie Jennings MD Unavailable [phone] Thang Heck MD Primary Care Provider [phone] Source Comments [facility],non-owned Affiliates and Associated Physician Practices is amultiple site organization consisting of ambulatory clinics and hospital sitesin [place], [place], [place]. This disclosure is being madepursuant to the Care Everywhere program and may not contain all information available regarding this patient. Last updated 18.[facility] Encounters Date Type Department Care Team Description 07/04/2024 Travel from Last 3 Months Allergies Active Allergy Reactions Criticality Noted Date Comments Nsaids Other Low Reaction: Medications * Be aware that medications may not be up to date on this document. Alwaysverify current medications with the patient. Medication Sig Dispensed Refills Start Date End Date Status HYDROcodone-acetami nophen ([place]) 5-325 MG tablet TAKE 1 OR 2 [...] Comments Blood Pressure 136/73 07/03/2022 3:58 PM CHEMISTRY TECHNICIAN Pulse 85 07/03/2022 3:58 PM CHEMISTRY TECHNICIAN Temperature 37.1 ??C (98.7 ??F) 07/03/2022 3:58 PM CS T Respiratory Rate 16 07/03/2022 3:58 PM CHEMISTRY TECHNICIAN Oxygen Saturation 100% 07/03/2022 3:58 PM CHEMISTRY TECHNICIAN Inhaled Oxygen Concentration - - Weight 117.9 kg (260 lb) 07/03/2022 3:58 PM CHEMISTRY TECHNICIAN Height 162.6 cm (5' 4 ) 07/03/2022 3:58 PM CHEMISTRY TECHNICIAN Body Mass Index 44.63 07/03/2022 3:58 PM CHEMISTRY TECHNICIAN Plan of Treatment Not on file Procedures [...] Resulting Agency Comment Lab Testing performed at: [facility] [address] [place] [address] ??[facility] [id number] Lottie Caridadvalenciaalize COMPENSATION AGENT-MANAGER SALT LAB - CHEMI STRY ORDERABLES [facility] ACCOUNT BILL [address] [place] [address] * ALIZE DIAG DIRECT DIG IMAGE BILATERAL G0204 (05/07/2018 9:24 AM CDT) Anatomical Region Laterality Modality Breast Bilateral Mammography 05/07/2018 9:36 AM CDT Addenda Addendum by Mellisa Drake MD on 06/04/2018 11:19 AM CHEMISTRY TECHNICIAN Previous mammograms from [facility] on 04/10/2016 and 03/27/2016 are now [...] participate in the care of your patient. [facility] utilizes SpunLive as a reminder system to notify patients [...] utilized. PRIOR: Previous mammogram was performed at [facility]. This was not available for review at [...] utilized. PRIOR: Previous mammogram was performed at [facility]. This was not available for review at [...] participate in the care of your patient. [facility] utilizes SpunLive as a reminder system to notify patients of their next recommended mammogram. Reading Radiologist: Mellisa Drake MD on 05/07/2018 at 10:53 AM Mellisa Drake MD MAMMO ORDERABLES from Last 3 Months or Most Recently Relevant to Health Maintenance Advance Directives * Full Code (Latest Code Status on File) Date Activated Date Inactivated Comments 03/30/2010 2:48 PM 04/09/2010 5:05 AM Care Teams Printed Forms Proofreader Relationship Specialty Start Date End Date Thang Heck MD [address] [place] [address] PCP - General 06/10/22 Addie Jennings MD [address] [facility] [address] [place] [id number] Endocrinology 01/31/20
--- OUTSIDE RECORDS SUMMARY | 2024-08-02 16:44 | XMS_ITS | Clinical Summary ---
Author Organization [facility] Address [address] [facility] [place] [place] [address] Care Team Providers Care Dye Range Operator Cloth Name Role Phone Addie Jennings MD Unavailable [phone] Thang Heck MD Primary Care Provider [phone] Source Comments [facility],non-owned Affiliates and Associated Physician Practices is amultiple site organization consisting of ambulatory clinics and hospital sitesin [place], [place], [place] and [place]. This disclosure is being madepursuant to the Care Everywhere program and may not contain all information available regarding this patient. Last updated 18.[facility] Allergies Active Allergy Reactions Criticality Noted Date Comments Nsaids Other Low Reaction: Medications * Be aware that medications may not be up to date on this document. Alwaysverify current medications with the patient. Medication Sig Dispensed Refills Start Date End Date Status HYDROcodone-acetami nophen ([place]) 5-325 MG tablet TAKE 1 OR 2 [...] Comments Blood Pressure 136/73 07/03/2022 3:58 PM RETAIL OFFICE MANAGER Pulse 85 07/03/2022 3:58 PM RETAIL OFFICE MANAGER Temperature 37.1 ??C (98.7 ??F) 07/03/2022 3:58 PM CS T Respiratory Rate 16 07/03/2022 3:58 PM RETAIL OFFICE MANAGER Oxygen Saturation 100% 07/03/2022 3:58 PM RETAIL OFFICE MANAGER Inhaled Oxygen Concentration - - Weight 117.9 kg (260 lb) 07/03/2022 3:58 PM RETAIL OFFICE MANAGER Height 162.6 cm (5' 4 ) 07/03/2022 3:58 PM RETAIL OFFICE MANAGER Body Mass Index 44.63 07/03/2022 3:58 PM RETAIL OFFICE MANAGER Plan of Treatment Health Maintenance Due Date [...] Resulting Agency Comment Lab Testing performed at: [address] ??[facility] [id number] Lottie Verduzco FOCUSING MACHINE OPERATOR-HIGH SCHOOL SPECIAL EDUCATION TEACHER LAB - CHEMI STRY ORDERABLES [facility] ACCOUNT BILL [address] [place] [address] * ALIZE DIAG DIRECT DIG IMAGE BILATERAL G0204 (05/07/2018 9:24 AM CDT) Anatomical Region Laterality Modality Breast Bilateral Mammography 05/07/2018 9:36 AM CDT Addenda Addendum by Mellisa Drake MD on 06/04/2018 11:19 AM RETAIL OFFICE MANAGER Previous mammograms from [facility] on 04/10/2016 and 03/27/2016 are now [...] participate in the care of your patient. [facility] utilizes TalkBin as a reminder system to notify patients [...] participate in the care of your patient. [facility] utilizes TalkBin as a reminder system to notify patients of their next recommended mammogram. Reading Radiologist: Mellisa Drake MD on 05/07/2018 at 10:53 AM Mellisa Drake MD MAMMO ORDERABLES from Last 3 Months or Most Recently Relevant to Health Maintenance Advance Directives * Full Code (Latest Code Status on File) Date Activated Date Inactivated Comments 03/30/2010 2:48 PM 04/09/2010 5:05 AM Care Teams Dye Range Operator Cloth Relationship Specialty Start Date End Date Thang Heck MD [address] [place] [address] PCP - General 06/10/22 Addie Jennings MD [address] [place] [address] [place] [phone] Endocrinology 01/31/20
== END 2024-08-02 16:40 | disposition home or self-care (01) ==
LOC: ANHIMG 16:40
PROVIDERS: PCP Hospitalist; Visit Provider Student in an Organized Health Care Education/Training Program
DX: R10.2 Pelvic and perineal pain (principal); N83.209 Unspecified ovarian cyst, unspecified side
CPT/HCPCS: 76830; 76856

== ENCOUNTER 2024-08-05 10:33 | Emergency (ER) | payer OTHER, SELFPAY ==
--- NOTE | ~2024-08-05 | CT_ITS ---
EXAMINATION: CT abdomen pelvis w con DATE: 08/05/2024 16:34 INDICATION: Left sided abdominal pain TECHNIQUE: Computed tomography (CT) of the abdomen and pelvis was performed with 100 mL Omnipaque-350 intravenous contrast. Automated exposure control and iterative reconstruction technique were employe d. The dose-length product was 1532.01 mGy-cm. COMPARISON: 04/07/2022 FINDINGS: Lung bases are clear. Heart size is normal. No pericardial or pleural effusion. Postoperative change of prior sleeve gastrectomy with suture line along the greater curvature of the stomach. Diffuse hepa tic steatosis. Gallbladder, spleen, pancreas, bilateral adrenal glands and kidneys are normal. Postop erative change of prior appendectomy. Bowels are unremarkable with no abnormal wall thickening or obs truction. Bladder is normal. section scar along the anterior body the uterus. Couple right o varian follicles the larger measuring 1.8 cm. No free intraperitoneal gas or fluid. No pathologically enlarged abdominal or pelvic lymphadenopathy. Lucent T7 hemangioma with typical central thickened ve rtical trabecula pattern. Chronic appearing mild likely physiologic anterior wedging at T11. IMPRESSION: 1. No acute intra-abdominal/pelvic process. Reviewed, dictated and finalized at location A. NESS PRACTICES OFFICER
[2024-08-05 10:43] VITALS: BP 149/73; PULSE 79; RESP 16; TEMP 36.3; O2SAT 100
--- OUTSIDE RECORDS SUMMARY | 2024-08-05 10:43 | XMS_ITS | Encounter Summary ---
Author Organization [facility] Address [address] [place] [address] Phone Care Team Providers Care Rest Room Attendant Name Role Phone Provider, None Primary Care Provider Unavailabl e Reason for Visit * Reason Comments Abdominal Pain Encounter Details Date Type Department Care Team ([facility] st Contact Info) Description 08/04/2024 6:43 PM DISINTEGRATOR FEEDER - 08/04/2024 9:25 PM DISINTEGRATOR FEEDER Emergency [facility] Emergency [address] [place] [address] Sandy Leyva, EXAMINER OF CURRENCY, [employer] SALES [employer]OR [address] [place] [address] Generalized abdominal pain Discharge Disposition: Discharged to home or Selfcare Social History Tobacco Use Types Packs/Day Years Used Date Smoking Tobacco: Never Smokeless Tobacco: Never Alcohol Use Standard Drinks/Week Comments Never 0 (1 standard drink = 0.6 oz pur e alcohol) Education Answer Date Recorded What is the highest level of school you have completed or the highest degree you have received? GED or equivalent Comments No Sex and Gender Information Value Date Recorded Sex Assigned at Female 05/23/2024 7:05 PM DISINTEGRATOR FEEDER Legal Sex Female 1:02 PM DISINTEGRATOR FEEDER Gender Identity Female 05/23/2024 7:05 PM DISINTEGRATOR FEEDER Sexual Orientation Not on file documented as of this encounter Last Filed Vital Signs Vital Sign Reading Time Taken Comments Blood Pressure 138/91 08/04/2024 9:24 PM DISINTEGRATOR FEEDER Pulse 97 08/04/2024 9:24 PM DISINTEGRATOR FEEDER Temperature 36.7 ??C (98.1 ??F) 08/04/2024 6:39 PM CS T Respiratory Rate 14 08/04/2024 9:24 PM DISINTEGRATOR FEEDER Oxygen Saturation 100% 08/04/2024 9:24 PM DISINTEGRATOR FEEDER Inhaled Oxygen Concentration - - Weight 117.9 kg (260 lb) 08/04/2024 6:39 PM DISINTEGRATOR FEEDER Height 165.1 cm (5' 5 ) 08/04/2024 6:39 PM DISINTEGRATOR FEEDER Body Mass Index 43.27 08/04/2024 6:39 PM DISINTEGRATOR FEEDER documented in this encounter Discharge Instructions * Discharge Instructions* Sandy Leyva APRN, CNP - 08/04/2024 9:08 PM DISINTEGRATOR FEEDER Follow-up with primary care physician. Return to the ED with worsening symptoms. NTEGRATOR FEEDER NTEGRATOR FEEDER documented in this encounter Medications at Time of Discharge ondansetron (ZOFRAN-ODT) 4 MG TABLET DISPERSIBLEIndica tions:Nausea and Vomiting Take 1 Tablet by mouth every 8 hours as needed for Nausea - 1st line. Indications: Nausea and Vomiting 10 Tablet 08/04/2024 documented as of this encounter ED Notes * Eileen Carrera RN - 08/04/2024 9:24 PM CST Patient discharged. Discharge instructions and patient educational material reviewed with patient; questions and concerns addressed; patient verbalizes understanding, using teach back. Patient was given 1 prescription. Patient discharged per ambulatory mode with self as responsible libertarian. SL D/C'edwith Rodolfo cath intact. NTEGRATOR FEEDER * Eileen Carrera RN - 08/04/2024 8:46 PM CST Report received from Karen MUNOZ NTEGRATOR FEEDER * Karen Hager RN - 08/04/2024 8:30 PM CST Patient is resting in room with call light at bedside. Patient informed about wait time and verbalizes understanding. Patient denies needs at this time and verbalizes understanding that RN will complete hourly rounding. NTEGRATOR FEEDER * Karen Hager RN - 08/04/2024 7:30 PM CST Patient is resting in room with call light at bedside. Patient informed about wait time and verbalizes understanding. Patient denies needs at this time and verbalizes understanding that RN will complete hourly rounding. NTEGRATOR FEEDER * Sandy Leyva APRN, ARCHIE - 08/04/2024 7:13 PM CST Chief Complaint Patient presents with Abdominal Pain Jazmyn San is a 39 y.o. female who presents to the ED c/o generalized abdominal pain radiating into the back. Patient states that the pain has gotten progressively worse today. The pain is intermittent and sharp. States that she has had dysuria. She denies urinary frequency or hematuria. States that she had a pelvic ultrasound on Thursday that was unremarkable. Reports history of kidney stones in the past. States that the pain is making her nauseous. She denies vomiting. Denies recent fevers. No past medical history on file. No current facility-administered medications for this encounter. Current Outpatient Medications Medication Sig Dispense Refill ondansetron (ZOFRAN-ODT) 4 MG TABLET DISPERSIBLE Take 1 Tablet by mouth every 8 hours as needed forNausea - 1st line. Indications: Nausea and Vomiting 10 Tablet 0 No Known Allergies No past medical history on file. Past Surgical History: Procedure Laterality Date SECTION [id number] LAPAROSCOPY GASTRIC RESTRICTIVE PX LONGITUDINAL GASTRECTOMY SLEEVE Social History Socioeconomic History Marital status: Spouse name: Not on file Number of children: Not on file Years of education: Not on file Highest education level: GED or equivalent Occupational History Not on file Tobacco Use Smoking status: Never Smokeless tobacco: Never Vaping Use Vaping status: Never Used Substance and Sexual Activity Alcohol use: Never Drug use: Never Sexual activity: Not on file Other Topics Concern Not on file Social History Narrative Not on file Social Drivers of Health Financial Resource Needs: Not on file Food Insecurity Needs: Not on file Transportation Needs: Not on file Physical Activity: Not on file Stress: Not on file Social Integration: Not on file Personal Safety: Not on file Housing Stability: Not on file BP (!) 138/91 Pulse 97 Temp 98.1 ??F (36.7 ??C) (Tympanic) Resp 14 Ht 5' 5 (1.651 m) Wt 260 lb (117.9 kg) LMP 08/03/2024 (Approximate) SpO2 100% BMI 43.27 kg/m?? Review of Systems Constitutional: Negative for chills and fever. HENT: Negative for congestion, ear pain, rhinorrhea and sore throat. Eyes: Negative for discharge. Respiratory: Negative for cough, chest tightness, shortness of breath and wheezing. Cardiovascular: Negative for chest pain and palpitations. Gastrointestinal: Positive for abdominal pain and nausea. Negative for diarrhea and vomiting. Genitourinary: Positive for flank pain. Negative for difficulty urinating, dysuria, hematuria, menstrual problem and urgency. Musculoskeletal: Positive for back pain. Negative for arthralgias and myalgias. Skin: Negative for rash and wound. Neurological: Negative for dizziness, syncope and headaches. All other systems reviewed and are negative. Physical Exam Vitals and nursing note reviewed. Constitutional: General: She is not in acute distress. Appearance: She is well-developed. She is not diaphoretic. HENT: Head: Normocephalic and atraumatic. Right Ear: External ear normal. Left Ear: External ear normal. Eyes: Conjunctiva/sclera: Conjunctivae normal. Pupils: Pupils are equal, round, and reactive to light. Neck: Trachea: No tracheal deviation. Cardiovascular: Rate and Rhythm: Normal rate and regular rhythm. Heart sounds: Normal heart sounds. No murmur heard. Pulmonary: Effort: Pulmonary effort is normal. No respiratory distress. Breath sounds: Normal breath sounds. No wheezing or rales. Abdominal: General: Bowel sounds are normal. There is no distension. Palpations: Abdomen is soft. Tenderness: There is abdominal tenderness in the periumbilical area and suprapubic area. There is no right CVA tenderness, left CVA tenderness, guarding or rebound. Musculoskeletal: General: Normal range of motion. Cervical back: Normal range of motion. Skin: General: Skin is warm and dry. Neurological: Mental Status: She is alert and oriented to person, place, and time. Cranial Nerves: No cranial nerve deficit. Procedures Recent Results (from the past 24 hours) URINALYSIS REFLEX IF INDICATED BY ABNORMAL RESULTS Collection Time: 08/04/24 6:46 PM Result Value Ref Range SPECIFIC GRAVITY 1.020 1.003 - 1.030 URINE PH 7.0 5.0 - 9.0 WBC ESTERASE Negative Negative NITRITE Negative Negative PROTEIN, RANDOM URINE 15 mg/dL (A) Negative URINE GLUCOSE, QUAL Negative Negative URINE KETONES Negative Negative UROBILINOGEN Normal Normal mg/dL URINE BLOOD 10 /uL (A) Negative renee/ul URINALYSIS COLOR Yellow URINALYSIS CLARITY Clear WBC (Urine) 0-5 Negative, 0-5 /hpf URINE RBC'S 3-5 (A) Negative, 0-2 /hpf EPITHELIAL CELLS Moderate amount /lpf BACTERIA, URINE Few (A) Negative /hpf CRYSTALS Amorphous urates POCT Urine HCG () Collection Time: 08/04/24 6:50 PM Result Value Ref Range POC URINE Negative POC URINE CONTROL Independent Producer Pass Comprehensive Metabolic Panel (Cmp) [id number] Collection Time: 08/04/24 7:26 PM Result Value Ref Range SODIUM 141 136 - 145 mmol/L POTASSIUM 3.6 3.5 - 5.1 mmol/L CHLORIDE 107 98 - 107 mmol/L CO2, VENOUS 25 22 - 30 mmol/L ANION GAP 12.6 <18.0 mmol/L GLUCOSE 167 (H) 70 - 99 mg/dL BUN 11 5 - 18 mg/dL CREATININE, BLOOD 0.84 0.60 - 1.00 mg/dL BUN/CREATININE RATIO 13 12 - 20 ratio TOTAL PROTEIN 8.0 6.0 - 8.0 g/dL ALBUMIN 4.2 3.5 - 5.0 g/dL A/G RATIO 1.1 1.0 - 2.2 CALCIUM 9.3 8.7 - 10.5 mg/dL T BILI 0.2 0.2 - 1.2 mg/dL SGOT (AST) 40 6 - 42 U/L SGPT (ALT) 46 6 - 55 U/L ALKALINE PHOSPHATASE 88 40 - 150 U/L GFR, ESTIMATED >60 >=60 GFR, EST. >60 >=60 GFR, EST. NONAFRICAN >60 >=60 CBC with Auto Differential Collection Time: 08/04/24 7:26 PM Result Value Ref Range WBC 6.97 4.00 - 12.00 10(3)/mcL RBC 4.46 3.80 - 5.30 10(6)/mcL HEMOGLOBIN (HGB) 11.5 (L) 12.0 - 15.8 g/dL HEMATOCRIT (HCT) 36.2 36.0 - 47.0 % MCV 81.2 (L) 82.0 - 96.0 fL MCH 25.8 (L) 26.0 - 34.0 pg MCHC 31.8 31.0 - 36.0 g/dL PLATELET COUNT 348 140 - 440 10(3)/mcL RDW 16.7 (H) 11.8 - 15.5 % MPV 9.9 9.7 - 12.4 fL NEUTROPHILS 63.8 47.0 - 73.0 % LYMPHOCYTES 27.3 18.0 - 42.0 % MONOCYTES 7.3 4.0 - 12.0 % EOSINOPHILS 1.0 0.0 - 5.0 % BASOPHILS 0.6 0.0 - 1.0 % ABSOLUTE NEUTROPHILS 4.45 1.60 - 7.70 10(3)/mcL ABSOLUTE LYMPHOCYTES 1.90 1.30 - 3.20 10(3)/mcL ABSOLUTE MONOCYTES 0.51 0.20 - 1.00 10(3)/mcL ABSOLUTE EOSINOPHIL 0.07 0.00 - 0.40 10(3)/mcL ABSOLUTE BASOPHILS 0.04 0.00 - 0.10 10(3)/mcL NRBC PER [address] RENAL STONE STUDY (ABDOMEN AND PELVIS W/O CONTRAST) (Final result) Result time 08/04/24 20:09:53 Final result by Skip Ta MD (08/04/24 20:09:53) Impression: IMPRESSION: 1. No gross CT finding to explain the patient's symptoms. 2. Prominent uterus. Ascencion of gas within the lower uterine segment, likely due to reflux. Narrative: EXAM DESCRIPTION: CT RENAL STONE STUDY (ABDOMEN AND PELVIS W/O CONTRAST) REASON FOR STUDY: Generalized abdominal pain that radiates to the back with painful urination x today. Hx of renal stones TECHNIQUE: CT scan of the abdomen and pelvis performed without intravenous and without oral contrast using helical scanning technique. Reconstructed coronal and sagittal MPR images reviewed. All images stored on PACS. Automated exposure control was used as a dose optimization technique for this examination. COMPARISON: None FINDINGS: The sensitivity for detection of visceral lesions is diminished without the use of intravenous contrast. LOWER CHEST: No significant pulmonary abnormalities. No effusion. LIVER: The liver is normal in size. There is evidence of hepatic steatosis with focal fatty sparing adjacent to the gallbladder. No definite liver lesion is seen. GALLBLADDER: Partially distended. BILE DUCTS: No gross biliary ductal dilatation. SPLEEN: The spleen is normal in size. PANCREAS: Pancreas is normal in size without significant peripancreatic stranding or main ductal dilatation. ADRENALS: Normal. KIDNEYS/URINARY TRACT: The kidneys are normal in size. No hydronephrosis or significant perinephric stranding. No stone is seen within either kidney. Urinary bladder is partially distended without substantial thickening or stranding. GI: The colon is nondilated without wall thickening or evidence of obstruction. Scattered diverticular seen without CT evidence of acute diverticulitis. The appendix is absent. The patient is status post sleeve gastrectomy. The stomach is partially distended. The small bowel is nondilated without evidence of a small-bowel obstruction. PERITONEUM: No free air. No ascites is seen. No mesenteric lymphadenopathy is seen. RETROPERITONEUM: Subcentimeter retroperitoneal lymph nodes are noted. No inguinal lymphadenopathy is seen. REPRODUCTIVE: Prominent uterus is noted a small ascencion of gas is seen within the central lower uterine segment, likely reflux from the vagina. VASCULATURE: Aorta is normal caliber. MUSCULOSKELETAL: Aorta is normal caliber. OTHER: No other abnormality. THIS IS AN ELECTRONICALLY VERIFIED FINAL REPORT 08/04/2024 8:07 PM - Electronically signed by Skip Ta M.D. AG: GERMÁN Report ID: [id number] Reading Location: [id number] Labs Reviewed URINALYSIS REFLEX IF INDICATED BY ABNORMAL RESULTS - Abnormal; Notable for the following components: Result Value PROTEIN, RANDOM URINE 15 mg/dL (*) URINE BLOOD 10 /uL (*) URINE RBC'S 3-5 (*) BACTERIA, URINE Few (*) All other components within normal limits CMP (COMPREHENSIVE METABOLIC PANEL) - Abnormal; Notable for the following components: GLUCOSE 167 (*) All other components within normal limits CBC WITH AUTO DIFFERENTIAL - Abnormal; Notable for the following components: HEMOGLOBIN (HGB) 11.5 (*) MCV 81.2 (*) MCH 25.8 (*) RDW 16.7 (*) All other components within normal limits COMPLETE BLOOD COUNT (CBC) WITH DIFF Narrative: The following orders were created for panel order CBC with Diff [id number]. Procedure Abnormality Status --------- ------ CBC with Auto Differential[[id number]] Abnormal Final result Please view results for these tests on the individual orders. EXTRA TUBES Narrative: The following orders were created for panel order Extra Tubes. Procedure Abnormality Status --------- ------ Blue Top Tube[[id number]] Final result Gold Top Tube[[id number]] Final result Please view results for these tests on the individual orders. POCT URINE HCG () BLUE TOP TUBE GOLD TOP TUBE CT RENAL STONE STUDY (ABDOMEN AND PELVIS W/O CONTRAST) Final Result IMPRESSION: 1. No gross CT finding to explain the patient's symptoms. 2. Prominent uterus. Ascencion of gas within the lower uterine segment, likely due to reflux. CBC with Diff [id number] Final Result Comprehensive Metabolic Panel (Cmp) [id number] Final Result Extra Tubes Final Result URINALYSIS REFLEX IF INDICATED BY ABNORMAL RESULTS Final Result Medical Decision Making Amount and/or Complexity of Data Reviewed External Data Reviewed: labs and radiology. Labs: ordered. Radiology: ordered. Clinical Impression 1. Generalized abdominal pain Disposition: Discharge IMPRESSION: 1. No gross CT finding to explain the patient's symptoms. 2. Prominent uterus. Ascencion of gas within the lower uterine segment, likely due to reflux. Labs are relatively unremarkable. Urinalysis is unremarkable. Patient with no apparent acute surgical condition at this time. I have spoken with the patient at great length and recommend to return to the ED in 12 hours for abdominal re-examination. The patient displays understanding. I have done teaching at the bedside and what to symptomatolgy to watch out for and when to return to the ED. The patient remained stable throughout their ED stay. My clinical impression was discussed with thepatient/family. Labs and radiology results were reviewed with them. I gave them the opportunity to ask questions, and addressed them as completely as possible given the information available at present. The therapeutic plan was discussed, advised to take medications as instructed, instructions weregiven and the importance of primary care follow up was stressed and encouraged. The patient/family voiced understanding of the plan, indications to return, and the need for follow up. Cosigned by Colt Lozano MD at 08/05/2024 3:30 AM DISINTEGRATOR FEEDER NTEGRATOR FEEDER NTEGRATOR FEEDER * Asuncion Guaman RN - 08/04/2024 6:41 PM CST Pt ambulatory to triage with c/o generalized abdominal pain that radiates to the back. Also reportspain with urination. Pt reports having a pelvic ultrasound [place] which came back negative. DeniesGI hx. Hx of kidney stones in the past. Normal bowel movements. NTEGRATOR FEEDER documented in this encounter Miscellaneous Notes * PatientPass Patient Instructions - Sandy Leyva APRN, ARCHIE - 08/04/2024 9:08 PM CST Images from the original note were not included. Patient Education Table of Contents Abdominal Pain, Adult Flank Pain, Adult To view videos and all your education online visit, [email or web address] or scan this QR code with your smartphone. Access to this content will in one year. Abdominal Pain, Adult Pain in the abdomen (abdominal pain) can be caused by many things. In most cases, it gets better with no treatment or by being treated at home. But in some cases, it can be serious. Your health care provider will ask questions about your medical history and do a physical exam to try to figure out what is causing your pain. Follow these instructions at home: Medicines Take nupm-lkk-vuzsetx and prescription medicines only as told by your provider. Do not take medicines that help you poop (laxatives) unless told by your provider. General instructions Watch your condition for any changes. Drink enough fluid to keep your pee (urine) pale yellow. Contact a health care provider if: Your pain changes, gets worse, or lasts longer than expected. You have severe cramping or bloating in your abdomen, or you vomit. Your pain gets worse with meals, after eating, or with certain foods. You are constipated or have diarrhea for more than 2?3 days. You are not hungry, or you lose weight without trying. You have signs of dehydration. These may include: ? Dark pee, very little pee, or no pee. ? Cracked lips or dry mouth. ? Sleepiness or weakness. You have pain when you pee (urinate) or poop. Your abdominal pain wakes you up at night. You have blood in your pee. You have a fever. Get help right away if: You cannot stop vomiting. Your pain is only in one part of the abdomen. Pain on the right side could be caused by appendicitis. You have bloody or black poop (stool), or poop that looks like tar. You have trouble breathing. You have chest pain. These symptoms may be an emergency. Get help right away. Call 911. Do not wait to see if the symptoms will go away. Do not drive yourself to the hospital. This information is not intended to replace advice given to you by your health care provider. Make sure you discuss any questions you have with your health care provider. Document Released: 2006-04-01 Document Updated: 2023-04-08 Document Reviewed: 2023-04-08 [employer] Patient Education ? 2023 [employer] Flank Pain, Adult Flank pain is pain in your side. The flank is the area on your side between your upper belly (abdomen) and your spine. The pain may occur over a short time (acute), or it may be long-term or come back often (chronic). It may be mild or very bad. Pain in this area can be caused by many different things. Follow these instructions at home: Drink enough fluid to keep your pee (urine) pale yellow. Rest as told by your doctor. Take [id number] and prescription medicines only as told by your doctor. Keep a journal to keep track of: ? What has caused your flank pain. ? What has made your flank pain feel better. Keep all follow-up visits. Contact a doctor if: Medicine does not help your pain. You have new symptoms. Your pain gets worse. Your symptoms last longer than 2?3 days. You have trouble peeing. You are peeing more often than normal. Get help right away if: You have trouble breathing. You are short of breath. Your belly hurts, or it is swollen or red. You feel like you may vomit (nauseous). You vomit. You feel faint, or you faint. You have blood in your pee. You have flank pain and a fever. These symptoms may be an emergency. Get help right away. Call your local emergency services (911 int [place] Do not wait to see if the symptoms will go away. Do not drive yourself to the hospital. Summary Flank pain is pain in your side. The flank is the area of your side between your upper belly (abdomen) and your spine. Flank pain may occur over a short time (acute), or it may be long-term or come back often (chronic). It may be mild or very bad. Pain in this area can be caused by many different things. Contact your doctor if your symptoms get worse or last longer than 2?3 days. This information is not intended to replace advice given to you by your health care provider. Make sure you discuss any questions you have with your health care provider. Document Released: 2009-03-31 Document Updated: 2021-09-02 Document Reviewed: 2021-09-02 [employer] Patient Education ? 2023 [employer] NTEGRATOR FEEDER documented in this encounter Plan of Treatment Not on file documented as of this encounter Procedures Procedure Name Priority Date/Time Associated Diagnosis Comments CT RENAL STONE STUDY (ABDOMEN AND PELVIS W/O CONTRAST) Stat with Interpretation 08/04/2024 7:54 PM DISINTEGRATOR FEEDER EXTRA TUBES STAT 08/04/2024 7:26 PM DISINTEGRATOR FEEDER GOLD TOP TUBE STAT 08/04/2024 7:26 PM DISINTEGRATOR FEEDER BLUE TOP TUBE STAT 08/04/2024 7:26 PM DISINTEGRATOR FEEDER CBC WITH AUTO DIFFERENTIAL STAT 08/04/2024 7:26 PM DISINTEGRATOR FEEDER CMP (COMPREHENSIVE METABOLIC PANEL) STAT 08/04/2024 7:26 PM DISINTEGRATOR FEEDER COMPLETE BLOOD COUNT (CBC) WITH DIFF STAT 08/04/2024 7:26 PM DISINTEGRATOR FEEDER POCT URINE HCG () STAT 08/04/2024 6:50 PM DISINTEGRATOR FEEDER URINALYSIS REFLEX IF INDICATED BY ABNORMAL RESULTS STAT 08/04/2024 6:46 PM DISINTEGRATOR FEEDER documented in this encounter Results * CT RENAL STONE STUDY (ABDOMEN AND PELVIS W/O CONTRAST) (08/04/2024 7:54 PM DISINTEGRATOR FEEDER) Anatomical Region Laterality Modality Abdomen N/A Computed Tomogra phy 08/04/2024 8:07 PM DISINTEGRATOR FEEDER Impressions 08/04/2024 8:09 PM DISINTEGRATOR FEEDER IMPRESSION: ?? 1. ?? No gross CT finding to explain the patient's symptoms. 2. ?? Prominent uterus. ??Ascencion of gas within the lower uterine segment, likely due to reflux. Narrative 08/04/2024 8:09 PM DISINTEGRATOR FEEDER EXAM DESCRIPTION: ?? CT RENAL STONE STUDY (ABDOMEN AND PELVIS W/O CONTRAST) REASON FOR STUDY: ?? Generalized abdominal pain that radiates to the back with painful urination x today. Hx of renal stones ?? TECHNIQUE: CT scan of the abdomen and pelvis performed without intravenous and ??without ??oral contrast using helical scanning technique. Reconstructed coronal and sagittal MPR images reviewed. All images stored on PACS. Automated exposure control was used as a dose optimization technique for this examination. COMPARISON: ?? None FINDINGS: The sensitivity for detection of visceral lesions is diminished without the use of intravenous contrast. LOWER CHEST: ?? No significant pulmonary abnormalities. No effusion. LIVER: ?? The liver is normal in size. ??There is evidence of hepatic steatosis with focal fatty sparing adjacent to the gallbladder. ??No definite liver lesion is seen. GALLBLADDER: ?? Partially distended. BILE DUCTS: ?? No gross biliary ductal dilatation. SPLEEN: ?? The spleen is normal in size. PANCREAS: ?? Pancreas is normal in size without significant peripancreatic stranding or main ductal dilatation. ADRENALS: ?? Normal. KIDNEYS/URINARY TRACT: ?? The kidneys are normal in size. ??No hydronephrosis or significant perinephric stranding. ??No stone is seen within either kidney. ??Urinary bladder is partially distended without substantial thickening or stranding. ?? GI: ?? The colon is nondilated without wall thickening or evidence of obstruction. ??Scattered diverticular seen without CT evidence of acute diverticulitis. ??The appendix is absent. ??The patient is status post sleeve gastrectomy. ??The stomach is partially distended. The small bowel is nondilated without evidence of a small-bowel obstruction. PERITONEUM: ?No free air. No ascites is seen. No mesenteric lymphadenopathy is seen. ?? RETROPERITONEUM: ?? Subcentimeter retroperitoneal lymph nodes are noted. ??No inguinal lymphadenopathy is seen. REPRODUCTIVE: ?? Prominent uterus is noted a small ascencion of gas is seen within the central lower uterine segment, likely reflux from the vagina. VASCULATURE: ?? Aorta is normal caliber. MUSCULOSKELETAL: ?? Aorta is normal caliber. OTHER: ?? No other abnormality. THIS IS AN ELECTRONICALLY VERIFIED FINAL REPORT 08/04/2024 8:07 PM - Electronically signed by ??Skip Ta M.D. AG: AG D: ??08/04/2024 8:07 PM T: ??08/04/2024 8:07 PM Report ID: [id number] Reading Location: ??[id number] Procedure Note Skip Ta MD - 08/04/2024 EXAM DESCRIPTION: CT RENAL STONE STUDY (ABDOMEN AND PELVIS W/O CONTRAST) REASON FOR STUDY: Generalized abdominal pain that radiates to the back with painful urination x today. Hx of renal stones TECHNIQUE: CT scan of the abdomen and pelvis performed without intravenous and without oral contrast using helical scanning technique. Reconstructed coronal and sagittal MPR images reviewed. All images stored on PACS. Automated exposure control was used as a dose optimization technique for this examination. COMPARISON: None FINDINGS: The sensitivity for detection of visceral lesions is diminished without the use of intravenous contrast. LOWER CHEST: No significant pulmonary abnormalities. No effusion. LIVER: The liver is normal in size. There is evidence of hepatic steatosis with focal fatty sparing adjacent to the gallbladder. No definite liver lesion is seen. GALLBLADDER: Partially distended. BILE DUCTS: No gross biliary ductal dilatation. SPLEEN: The spleen is normal in size. PANCREAS: Pancreas is normal in size without significant peripancreatic stranding or main ductal dilatation. ADRENALS: Normal. KIDNEYS/URINARY TRACT: The kidneys are normal in size. No hydronephrosis or significant perinephric stranding. No stone is seen within either kidney. Urinary bladder is partially distended without substantial thickening or stranding. GI: The colon is nondilated without wall thickening or evidence of obstruction. Scattered diverticular seen without CT evidence of acute diverticulitis. The appendix is absent. The patient is status post sleeve gastrectomy. The stomach is partially distended. The small bowel is nondilated without evidence of a small-bowel obstruction. PERITONEUM: No free air. No ascites is seen. No mesenteric lymphadenopathy is seen. RETROPERITONEUM: Subcentimeter retroperitoneal lymph nodes are noted. No inguinal lymphadenopathy is seen. REPRODUCTIVE: Prominent uterus is noted a small ascencion of gas is seen within the central lower uterine segment, likely reflux from the vagina. VASCULATURE: Aorta is normal caliber. MUSCULOSKELETAL: Aorta is normal caliber. OTHER: No other abnormality. THIS IS AN ELECTRONICALLY VERIFIED FINAL REPORT 08/04/2024 8:07 PM - Electronically signed by Skip Ta M.D. AG: GERMÁN Report ID: [id number] Reading Location: [id number] IMPRESSION: 1. No gross CT finding to explain the patient's symptoms. 2. Prominent uterus. Ascencion of gas within the lower uterine segment, likely due to reflux. Sandy Leyva APRN, [employer] ADVISOR IMG CT ORDERABLES Fin al Result * Gold Top Tube (08/04/2024 7:26 PM DISINTEGRATOR FEEDER) Blood No Phlebotomy Charged / Unknown 08/04/2024 7:26 PM DISINTEGRATOR FEEDER 08/04/2024 7:38 PM DISINTEGRATOR FEEDER us Sandy Leyva EXAMINER OF CURRENCY, [employer] SAL[employer] UNIT ADVISOR CHEMISTRY ORDERABLES Final Result [facility] [place] [address] * Blue Top Tube (08/04/2024 7:26 PM DISINTEGRATOR FEEDER) Blood No Phlebotomy Charged / Unknown 08/04/2024 7:26 PM DISINTEGRATOR FEEDER 08/04/2024 7:38 PM DISINTEGRATOR FEEDER us Sandy Leyva EXAMINER OF CURRENCY, [employer] SAL[employer] UNIT ADVISOR HEMATOLOGY ORDERABLES Final Result [facility] [place] [address] * (ABNORMAL) CBC with Auto Differential (08/04/2024 7:26 PM DISINTEGRATOR FEEDER) WBC 6.97 4.00 - 12.00 10(3)/mcL 08/04/2024 7:40 PM DISINTEGRATOR FEEDER [facility] RBC 4.46 3.80 - 5.30 10(6)/mcL 08/04/2024 7:40 PM DISINTEGRATOR FEEDER [facility] HEMOGLOBIN (HGB) 11.5(L) 12.0 - 15.8 g/dL 08/04/2024 7:40 PM DISINTEGRATOR FEEDER [facility] HEMATOCRIT (HCT) 36.2 36.0 - 47.0 % 08/04/2024 7:40 PM DISINTEGRATOR FEEDER [facility] MCV 81.2(L) 82.0 - 96.0 fL 08/04/2024 7:40 PM DISINTEGRATOR FEEDER [facility] MCH 25.8(L) 26.0 - 34.0 pg 08/04/2024 7:40 PM DISINTEGRATOR FEEDER [facility] MCHC 31.8 31.0 - 36.0 g/dL 08/04/2024 7:40 PM DISINTEGRATOR FEEDER [facility] PLATELET COUNT 348 140 - 440 10(3)/mcL 08/04/2024 7:40 PM DISINTEGRATOR FEEDER [facility] RDW 16.7(H) 11.8 - 15.5 % 08/04/2024 7:40 PM DISINTEGRATOR FEEDER [facility] MPV 9.9 9.7 - 12.4 fL 08/04/2024 7:40 PM DISINTEGRATOR FEEDER [facility] NEUTROPHILS 63.8 47.0 - 73.0 % 08/04/2024 7:40 PM DISINTEGRATOR FEEDER [facility] LYMPHOCYTES 27.3 18.0 - 42.0 % 08/04/2024 7:40 PM DISINTEGRATOR FEEDER [facility] MONOCYTES 7.3 4.0 - 12.0 % 08/04/2024 7:40 PM DISINTEGRATOR FEEDER [facility] EOSINOPHILS 1.0 0.0 - 5.0 % 08/04/2024 7:40 PM [facility] BASOPHILS 0.6 0.0 - 1.0 % 08/04/2024 7:40 PM [facility] ABSOLUTE NEUTROPHILS 4.45 1.60 - 7.70 10(3)/mcL 08/04/2024 7:40 PM DISINTEGRATOR FEEDER [facility] ABSOLUTE LYMPHOCYTES 1.90 1.30 - 3.20 10(3)/mcL 08/04/2024 7:40 PM [facility] ABSOLUTE MONOCYTES 0.51 0.20 - 1.00 10(3)/mcL 08/04/2024 7:40 PM [facility] ABSOLUTE EOSINOPHIL 0.07 0.00 - 0.40 10(3)/mcL 08/04/2024 7:40 PM [facility] ABSOLUTE BASOPHILS 0.04 0.00 - 0.10 10(3)/mcL 08/04/2024 7:40 PM [facility] NRBC PER 100 WBC 0 08/04/19 7:40 PM [facility] Blood Venipuncture / Unknown 08/04/2024 7:26 PM DISINTEGRATOR FEEDER 08/04/2024 7:37 PM DISINTEGRATOR FEEDER Sandy Leyva EXAMINER OF CURRENCY, [employer] ADVISOR HEMATOLOGY ORDERABLES Final Result [facility] [place] [address] * (ABNORMAL) Comprehensive Metabolic Panel (Cmp) [id number] (08/04/2024 7:26 PM [facility]) SODIUM 141 136 - 145 mmol/L 08/04/2024 8:00 PM [facility] POTASSIUM 3.6 3.5 - 5.1 mmol/L 08/04/2024 8:00 PM [facility] CHLORIDE 107 98 - 107 mmol/L 08/04/2024 8:00 PM [facility] CO2, VENOUS 25 22 - 30 mmol/L 08/04/2024 8:00 PM [facility] ANION GAP 12.6 <18.0 mmol/L 08/04/2024 8:00 PM [facility] GLUCOSE 167(H) 70 - 99 mg/dL 08/04/2024 8:00 PM [facility] BUN 11 5 - 18 mg/dL 08/04/2024 8:00 PM [facility] CREATININE, BLOOD 0.84 0.60 - 1.00 mg/dL 08/04/2024 8:00 PM [facility] BUN/CREATININE RATIO 13 12 - 20 ratio 08/04/2024 8:00 PM [facility] TOTAL PROTEIN 8.0 6.0 - 8.0 g/dL 08/04/2024 8:00 PM [facility] ALBUMIN 4.2 3.5 - 5.0 g/dL 08/04/2024 8:00 PM [facility] A/G RATIO 1.1 1.0 - 2.2 08/04/2024 8:00 PM [facility] CALCIUM 9.3 8.7 - 10.5 mg/dL 08/04/2024 8:00 PM [facility] T BILI 0.2 0.2 - 1.2 mg/dL 08/04/2024 8:00 PM DISINTEGRATOR FEEDER [facility] SGOT (AST) 40 6 - 42 U/L 08/04/2024 8:00 PM DISINTEGRATOR FEEDER [facility] SGPT (ALT) 46 6 - 55 U/L 08/04/2024 8:00 PM DISINTEGRATOR FEEDER [facility] ALKALINE PHOSPHATASE 88 40 - 150 U/L 08/04/2024 8:00 PM DISINTEGRATOR FEEDER [facility] GFR, ESTIMATED >60 >=60 08/04/2024 8:00 PM DISINTEGRATOR FEEDER [facility] Comment: Creatinine Clearance is the preferred criteria for selecting drug dose adjustments in renally impaired patients. ??The GFR is provided as additional pertinent clinical information. GFR is reported in mL/min/1.73 sq m. Calculation based on the Chronic Kidney Disease Epidemiology Collaboration (CKD- EPI) equation refit without adjustment for race. GFR, EST. >60 >=60 025 8:00 PM DISINTEGRATOR FEEDER [facility] GFR, EST. NONAFRICAN >60 >=60 08/04/2024 8:00 PM DISINTEGRATOR FEEDER [facility] Blood Venipuncture / Unknown 08/04/2024 7:26 PM DISINTEGRATOR FEEDER 08/04/2024 7:37 PM DISINTEGRATOR FEEDER us Sandy Leyva APRN, [employer] ADVISOR CHEMISTRY ORDERABLES Final Result [facility] [place] [address] * POCT Urine HCG () (08/04/2024 6:50 PM DISINTEGRATOR FEEDER) POC URINE Negative POC URINE CONTROL Independent Producer Pass Urine 08/04/2024 6:50 PM DISINTEGRATOR FEEDER us Colt Lozano MD POINT OF CARE TESTING ([place] [facility]UCA) Final Result * (ABNORMAL) URINALYSIS REFLEX IF INDICATED BY ABNORMAL RESULTS (08/04/2024 6:46 PM DISINTEGRATOR FEEDER) SPECIFIC GRAVITY 1.020 1.003 - 1.030 08/04/2024 7:24 PM [facility] URINE PH 7.0 5.0 - 9.0 08/04/2024 7:24 PM [facility] WBC ESTERASE Negative Negative 08/04/2024 7:24 PM [facility] NITRITE Negative Negative 08/04/2024 7:24 PM [facility] PROTEIN, RANDOM URINE 15 mg/dL(A) Negative 08/04/2024 7:24 PM [facility] URINE GLUCOSE, QUAL Negative Negative 08/04/2024 7:24 PM [facility] URINE KETONES Negative Negative 08/04/2024 7:24 PM [facility] UROBILINOGEN Normal Normal mg/dL 08/04/2024 7:24 PM [facility] URINE BLOOD 10 /uL(A) Negative renee/ul 08/04/2024 7:24 PM [facility] URINALYSIS COLOR Yellow 08/04/19 7:24 PM [facility] URINALYSIS CLARITY Clear 08/04/2024 7:24 PM [facility] WBC (Urine) 0-5 Negative, 0-5 /hpf 08/04/2024 7:24 PM [facility] URINE RBC'S 3-5(A) Negative, 0-2 /hpf 08/04/2024 7:24 PM [facility] EPITHELIAL CELLS Moderate amount /lpf 08/04/2024 7:24 PM [facility] BACTERIA, URINE Few(A) Negative /hpf 08/04/2024 7:24 PM [facility] CRYSTALS Amorphous urates 08/04/2024 7:24 PM [facility] Urine URINE SPECIMEN COLLECTION, CLEAN CATCH / Unknown Non-Phlebotomy Collection / Unknown 08/04/2024 6:46 PM DISINTEGRATOR FEEDER 08/04/2024 6:58 PM DISINTEGRATOR FEEDER us Colt Lozano MD URINE ORDERABLES Final Re sult [facility] [place] [address] documented in this encounter Visit Diagnoses Diagnosis Generalized abdominal pain- Primary Abdominal pain, generalized documented in this encounter Administered Medications Inactive Administered Medications - up to 3 most recent administrations Medication Order MAR Action Action Date Dose Rate Site 0.9 % sodium chloride solution at 999 mL/hr, Intravenous, ONCE, 1 dose, On Abbi 08/04/24 at 1930 New Bag 08/04/2024 7:25 PM DISINTEGRATOR FEEDER 1,000 mL 999 mL/hr ketorolac (TORADOL) injection 30 mg 30 mg, Intravenous, ONCE, 1 dose, On Abbi 08/04/24 at 1930 Given 08/04/2024 7:25 PM DISINTEGRATOR FEEDER 30 mg KETOROLAC TROMETHAMINE 30 MG/ML IJ SOLN 1 dose, Starting on Abbi 08/04/24 at 1917, Until Abbi 08/04/24 at 1924, Created by cabinet override ondansetron (ZOFRAN) injection 4 mg 4 mg, Intravenous, ONCE, 1 dose, On Abbi 08/04/24 at 1930 Given 08/04/2024 7:26 PM DISINTEGRATOR FEEDER 4 mg ONDANSETRON HCL 4 MG/2ML IJ SOLN 1 dose, Starting on Abbi 08/04/24 at 1917, Until Abbi 08/04/24 at 192, Created by cabinet override documented in this encounter Active and Recently Administered Medications Times are shown in DISINTEGRATOR FEEDER. Scheduled Medication Order 08/02/2024 08/03/2024 08/04/2024 0.9 % sodium chloride solution (COMPLETED) at 999 mL/hr, Intravenous, ONCE, 1 dose, On Abbi 08/04/24 at 1930 1924 (New Bag - Prov ider: Karen Hager RN)2022 (Stopped - Provider: Karen Hager RN) ketorolac (TORADOL) injection 30 mg (COMPLETED) 30 mg, Intravenous, ONCE, 1 dose, On Abbi 08/04/24 at 1930 1924 (Given - Provid er: Karen Hager RN) ondansetron (ZOFRAN) injection 4 mg (COMPLETED) 4 mg, Intravenous, ONCE, 1 dose, On Abbi 08/04/24 at 1930 1926 (Given - Provid er: Karen Hager RN) documented in this encounter Care Teams Rest Room Attendant Relationship Specialty Start Date End Date Provider, None [place] PCP - General 08/05/22 documented as of this encounter
--- OUTSIDE RECORDS SUMMARY | 2024-08-05 10:43 | XMS_ITS | Referral Summary ---
Author Organization [facility] Address [address] [place] [address] Care Team Providers Care Sorting Livestock Worker Name Role Phone Addie Jennings MD Unavailable [phone] Thang Heck MD Primary Care Provider [phone] Source Comments [facility],non-owned Affiliates and Associated Physician Practices is amultiple site organization consisting of ambulatory clinics and hospital sitesin [place], [place], [place] and [place]. This disclosure is being madepursuant to the Care Everywhere program and may not contain all information available regarding this patient. Last updated 18.[facility] Encounters Date Type Department Care Team Description 07/04/2024 Travel from Last 3 Months Allergies Active Allergy Reactions Criticality Noted Date Comments Nsaids Other Low Reaction: Medications * Be aware that medications may not be up to date on this document. Alwaysverify current medications with the patient. Medication Sig Dispensed Refills Start Date End Date Status HYDROcodone-acetami nophen ([place]) 5-325 MG tablet TAKE 1 OR 2 [...] Comments Blood Pressure 136/73 07/03/2022 3:58 PM CLINICAL DATA ABSTRACTOR Pulse 85 07/03/2022 3:58 PM CLINICAL DATA ABSTRACTOR Temperature 37.1 ??C (98.7 ??F) 07/03/2022 3:58 PM CS T Respiratory Rate 16 07/03/2022 3:58 PM CLINICAL DATA ABSTRACTOR Oxygen Saturation 100% 07/03/2022 3:58 PM CLINICAL DATA ABSTRACTOR Inhaled Oxygen Concentration - - Weight 117.9 kg (260 lb) 07/03/2022 3:58 PM CLINICAL DATA ABSTRACTOR Height 162.6 cm (5' 4 ) 07/03/2022 3:58 PM CLINICAL DATA ABSTRACTOR Body Mass Index 44.63 07/03/2022 3:58 PM CLINICAL DATA ABSTRACTOR Plan of Treatment Not on file Procedures [...] Resulting Agency Comment Lab Testing performed at: [facility] [address] [place] [address] ??[facility] [id number] Lottie Caridadvalenciaalize DIAL [facility] - CHEMI STRY ORDERABLES [facility] ACCOUNT BILL [address] [place] [address] * ALIZE DIAG DIRECT DIG IMAGE BILATERAL [id number] (05/07/2018 9:24 AM CDT) Anatomical Region Laterality Modality Breast Bilateral Mammography 05/07/2018 9:36 AM CDT Addenda Addendum by Mellisa Drake MD on 06/04/2018 11:19 AM CLINICAL DATA ABSTRACTOR Previous mammograms from [facility] on 04/10/2016 and 03/27/2016 are now [...] participate in the care of your patient. [facility] utilizes [employer] as a reminder system to notify patients [...] utilized. PRIOR: Previous mammogram was performed at [facility]. This was not available for [...] utilized. PRIOR: Previous mammogram was performed at [facility]. This was not available for [...] participate in the care of your patient. [facility] utilizes [employer] as a reminder system to notify patients of their next recommended mammogram. Reading Radiologist: Mellisa Drake MD on 05/07/2018 at 10:53 AM Mellisa Drake MD MAMMO ORDERABLES from Last 3 Months or Most Recently Relevant to Health Maintenance Advance Directives * Full Code (Latest Code Status on File) Date Activated Date Inactivated Comments 03/30/2010 2:48 PM 04/09/2010 5:05 AM Care Teams Sorting Livestock Worker Relationship Specialty Start Date End Date Tahng Heck MD [address] [place] [address] PCP - General 06/10/22 Addie Jennings MD [address] [facility] [address] [place] [id number] Endocrinology 01/31/20
--- OUTSIDE RECORDS SUMMARY | 2024-08-05 10:43 | XMS_ITS | Referral Summary ---
Author Organization [facility] Address [address] [place] [address] Care Team Providers Care Pacu Rn Name Role Phone Chaparro Harris MD Primary Care Provider [phone] Jeff Umanzor MD Unavailable [phone] Encounters Date Type Department Care Team Description 08/03/2024 Telephone [facility] [address] [place] [address] Chaparro Harris MD Additional Services Or Orders 08/03/2024 2:30 PM [facility] Infusion [address] [place] [phone] Other specified intestinal malabsorption (Primary Dx); Iron deficiency anemia secondary to inadequate dietary iron intake 08/02/2024 Orders Only [facility] Health Information Management [address] [place] [address] Scanning, Provider 07/27/2024 2:30 PM [facility] Infusion [address] [place] [phone] Other specified intestinal malabsorption (Primary Dx); Iron deficiency anemia secondary to inadequate dietary iron intake 07/26/2024 8:05 AM [facility] Lab [facility] [address] [place] [address] 07/25/2024 Telephone [facility] [address] [place] [address] Blanca Christopher, ALEXANDER Forms Request 07/25/2024 Orders Only [facility] [place] [address] [place] [phone] 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 Telephone [facility] [address] [facility] [address] [place] [address] Olga Sandoval RN 07/21/2024 Telephone [facility] [address] [facility] [address] [place] [address] Chaparro Harris MD 07/20/2024 3:00 PM [facility] Office Visit [facility] Department of Otolaryngology Head-Neck Division [facility] Floor 5 [place] [phone] Darline Messina PA Geographic tongue (Primary Dx); Other lesions of oral mucosa 07/18/2024 Telephone [facility] [address] [place] [address] Blanca Christopher, ALEXANDER Additional Services Or Orders 07/15/2024 Telephone [facility] [address] [place] [address] Jody Jordan, ALEXANDER 07/14/2024 Telephone [facility] [address] [place] [address] Eneida Sandoval RN 07/14/2024 11:15 AM [facility] Lab [facility] [address] [place] [address] 07/14/2024 10:55 AM [facility] Lab [facility] [address] [place] [address] Fatigue, unspecified type; Iron deficiency; Vitamin D deficiency; B12 deficiency 07/12/2024 Orders Only [facility] Minimally Invasive Surgery [address] Building [address] [place] [phone] Liana Bishop, ALEXANDER Gastroesophageal reflux disease without esophagitis (Primary Dx); Morbid obesity (HCC); S/P laparoscopic sleeve gastrectomy 07/12/2024 Telephone [facility] Advanced [facility] ([facility]) - [facility] ENT [address] [facility] Advanced Medicine 11th [place] [address] [place] [address] Kiran Vanessa, 07/07/2024 Telephone [facility] 1 [place] [address] Martha Stinson RN 06/15/2024 4:00 PM [facility] Office Visit [facility] Diabetes Endocrine Care at [address] [place] [phone] Ramiro 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 06/09/2024 9:45 AM [facility] Telemedicine [facility] of [address] [phone] Chaparro Harris MD AME (generalized anxiety disorder) (Primary Dx) 06/08/2024 4:31 PM [facility] - 06/08/2024 11:59 PM [facility] Hospital Encounter [facility] [address] [place] [phone] Screening mammogram, encounter for Discharge Disposition: Discharge to home or self care 05/30/2024 Telephone [facility] [address] [place] [address] Jody Jordan, RN 05/17/2024 Orders Only [facility] Sleep Medicine at [address] [place] [phone] Thom Doyle MD Pseudotumor cerebri (Primary Dx) 05/17/2024 Orders Only [facility] Sleep Medicine at [address] [place] [phone] Thom Doyle MD 05/10/2024 1:15 PM [facility] Office Visit [facility] [address] [facility] [address] [place] [address] Thom Doyle MD Chronic migraine without aura without status migrainosus, not intractable (Primary Dx) 05/05/2024 Telephone [facility] [place] [address] [place] [address] Chaparro Harris MD Medication Problem from [...] or CMV - given recent travel to [place] w nausea/diarrhea, 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 Assessment & Plan (09/10/2021 1:05 PM [facility]): Stable, well controlled; TSH at target Continue to check TSH related, no need for thyroid hormone at this time Assessment & Plan (06/25/2021 3:22 PM [facility]): Stable, well controlled; continues to follow with Endocrinology; last TSH was normal, ultrasound reviewed No current medications AME (generalized anxiety disorder) 05/26/2018 Assessment & Plan (06/14/2024 3:04 PM [facility]): Not well controlled, acutely worsened due to [...] BID Assessment & Plan (08/04/2022 4:52 PM [facility]): Not well controlled; worsening; patient reports multiple [...] daily Assessment & Plan (09/10/2021 1:04 PM [facility]): Not well controlled, continues to have elevated anxiety and panic attacks, severe anxiety associated with small health concerns Patient reports no relief previously with Lexapro sertraline Patient is unclear if she needs daily medications Continue bupropion 150 mg daily, Valium 5 mg nightly Assessment & Plan (06/25/2021 3:21 PM [facility]): Stable, improving; patient reports decreased panic attacks on sertraline Continue Zoloft 50 mg daily, hydroxyzine 25 mg t.i.d. p.r.n. for panic attacks Iron deficiency anemia ever agudelo to inadequate dietary iron intake 02/04/2018 Assessment & Plan (09/15/2022 5:09 PM CDT): Stable, patient has iron infusion scheduled Assessment & Plan (09/10/2021 1:04 PM [facility]): Stable, improving; no evidence of anemia or iron deficiency at this time; continue to monitor with regular CBCs Assessment & Plan (06/25/2021 3:22 PM [facility]): Follows with Hematology for iron infusions Low [...] w/r/t gut microbiome. Referred to ADA and aCon websites for additional information on topics including glycemic index/carbohydrate choices, protein sources. 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 Assessment & Plan (06/25/2021 3:23 PM [facility]): Postsurgical changes, secondary to gastric sleeve in [...] been working on weight loss; follows with dentistry teacher, cutting back on coffee and trying to eat better Encourage 30 minutes moderate intensity exercise 5 days per week Assessment & Plan (09/10/2021 1:05 PM [facility]): Not well controlled, patient has history of gastric sleeve, continues to have bowel issues associated gastric sleeve No significant change in weight, patient has been working on weight loss reports no significant changes Assessment & Plan (06/25/2021 3:24 PM [facility]): Not well controlled; patient is status post [...] on file Legal Sex Female 8:26 PM [facility] Gender Identity Not on file Sexual Orientation Not on file Last Filed Vital Signs Vital Sign Reading Time Taken Comments Blood Pressure 117/57 08/03/2024 2:18 PM [facility] Pulse 81 08/03/2024 2:18 PM [facility] Temperature 36.3 ??C (97.3 ??F) 08/03/2024 2:18 PM CS T Respiratory Rate 18 08/03/2024 2:18 PM [facility] Oxygen Saturation 99% 08/03/2024 2:18 PM [facility] Inhaled Oxygen Concentration - - Weight 119.3 kg (263 lb) 07/20/2024 2:32 PM [facility] Height 162.6 cm (5' 4 ) 07/20/2024 2:32 PM [facility] Body Mass Index 45.14 07/20/2024 2:32 PM [facility] Plan of Treatment Not on file Procedures Procedure Name Priority Date/Time Associated Diagnosis Comments SCAN - RADIOLOGY/IMAGING 08/02/2024 CORTISOL Routine 07/26/2024 8:06 AM [facility] FOLATE Routine 07/14/2024 11:30 AM [facility] EGFR Routine 07/14/2024 11:10 AM [facility] IODINE SERUM,PLASMA Routine 07/14/2024 1 1:10 AM [facility] TSH Routine 07/14/2024 11:10 AM [facility] THYROID PEROXIDASE ANTIBODY Routine 07/14/2024 11:10 AM [facility] TESTOSTERONE, TOTAL AND FREE, SERUM Routine 07/14/2024 11:10 AM [facility] T4, FREE Routine 07/14/2024 11:10 AM [facility] T3, FREE Routine 07/14/2024 11:10 AM [facility] PROGESTERONE Routine 07/14/2024 11:10 AM [facility] LUTEINIZING HORMONE (LH) Routine 07/14/2024 11:10 AM [facility] LIPID PANEL Routine 07/14/2024 11:10 AM [facility] INSULIN, TOTAL Routine 07/14/2024 11:10 AM [facility] HEMOGLOBIN A1C Routine 07/14/2024 11:10 AM [facility] FOLLICLE STIMULATING HORMONE Routine 07/14/2024 11:10 AM [facility] ESTRADIOL Routine 07/14/2024 11:10 AM [facility] DHEA-SULFATE Routine 07/14/2024 11:10 AM [facility] COMPREHENSIVE METABOLIC PANEL Routine 07/14/2024 11:10 AM [facility] ACTH Routine 07/14/2024 11:10 AM [facility] DIFFERENTIAL AUTO Routine 07/14/2024 10: 52 AM [facility] Iron deficiency VITAMIN B12 Routine 07/14/2024 10:52 AM [facility] B12 deficiency VITAMIN D 25 HYDROXY Routine 07/14/2024 10:52 AM [facility] Vitamin D deficiency CBC WITH AUTO DIFFERENTIAL Routine 07/14/2024 10:52 AM [facility] Iron deficiency IRON PROFILE W/ IBC Routine 07/14/2024 1 0:52 AM [facility] Iron deficiency FERRITIN Routine 07/14/2024 10:52 AM [facility] Iron deficiency ZINC Routine 07/14/2024 10:52 AM [facility] Fatigue, unspecified type SCREENING MAMMOGRAM BILATERAL W BRIAN Schedule Routine, Read Routine (OP Routine) 06/08/2024 4:56 PM [facility] Screening mammogram, encounter for HEPATITIS C ANTIBODY Routine 10/12/2023 9:08 AM CDT Screening for STDs (sexually transmitted diseases) from Last 3 Months or Most Recently Relevant to Health Maintenance Results * SCAN - RADIOLOGY/IMAGING (08/02/2024) Anatomical Region Laterality Modality Other us Provider Scanning Final Result * (ABNORMAL) Cortisol (07/26/2024 8:06 AM [facility]) Cortisol 0.8(L) 4.8 - 19.5 mcg/dl Comment: Interpretive Data Normal Range: ??4.8 - 19.5 mcg/dL; ??Evening: ??Half of morning value. ?? This analyte undergoes marked diurnal variation. ??Ranges indicated apply to morning specimens. ?? Current interpretive data was last revised 2018. Testing performed by: [facility], [address] [place] [address]., [id number] Blood 07/26/2024 8:06 AM [facility] 07/26/2024 8:07 AM [facility] us Ju Maldonado MD LAB BLOOD ORDERABLES Odalys jennings Result [facility] (MATHEWS) [address] [facility] Department [place] [address] * Folate (07/14/2024 11:30 AM [facility]) Folic acid 7.9 >=5.0 ng/mL Comment: Hemolysis present. ??Results may be affected. Testing performed by: [facility], [address] [place] [address], [place]., [address] Blood 07/14/2024 11:3 0 AM [facility] 07/14/2024 1:26 PM [facility] us Ju Maldonado MD LAB BLOOD ORDERABLES Odalys dick Result [facility] (MATHEWS) [address] [facility] Department of Laboratories [place], [place] [phone] * eGFR (07/14/2024 11:10 AM [facility]) eGFR >90 >=60 mL/min/1. 73 m2 Comment: [...] of Race in Diagnosing Kidney Disease, JASN 202). The CKD-EPI equation should not be used for patients with unstable renal function and has not been validated in children and those over 70. Current interpretive data was last reviewed 2021. Testing performed by: [facility], [address] [place] [address], [place]., [address] Blood 07/14/2024 11:1 0 AM [facility] 07/14/2024 10:41 PM [facility] Ju Maldonado MD LAB BLOOD ORDERABLES Odalys l Result Performing Organization Address [facility] Co de Phone Number [facility] KEKE) 1 [facility] [place] [place] [address] * Iodine serum, plasma (07/14/2024 11:10 AM [facility]) Iodine 52 40 - 92 ng/mL [facility] Comment: ADDITIONAL INFORMATION This test was developed and its performance characteristics determined by [facility] in a manner consistent with CLIA requirements. This test has not been cleared or approved by the U.S. Food and Drug Administration. Test Performed by: [place] [address] Port Engineer: Kojo Alvarenga Ph.D.; CLIA# [id number] Testing performed by: [facility], [address] [place] [address], [address] Blood 07/14/2024 11:1 0 AM [facility] 07/14/2024 10:34 PM [facility] Ju Maldonado MD LAB BLOOD ORDERABLES Odalys l Result Performing Organization Address [facility] Co de Phone Number [facility] (KEKE) 1 [facility] [place] [place] [address] [facility] * (ABNORMAL) Thyroid peroxidase antibody (TPO) (07/14/2024 11:10 AM [facility]) Anti Thyroid Peroxidase 434(H) <=34 IUnits/mL Comment: ATPO Interpretive Data Results may be up to 28% higher in patients receiving Itraconazole. Current interpretive data was last revised 2020. Testing performed by: [facility], [address] [place] [address], [place], [address] Blood 07/14/2024 11:1 0 AM [facility] 07/15/2024 10:04 AM [facility] Ju Maldonado MD LAB BLOOD ORDERABLES Odalys l Result Performing Organization Address City/[facility]/ZIP Co de Phone Number [facility] (MATHEWS) 1 [facility] Fwd: [place] [address] * Progesterone (07/14/2024 11:10 AM [facility]) Progesterone 2.35 ng/mL Comment: Interpretive Data Males: ?<0.15 ng/mL Females: ??Follicular ?<0.20 ng/mL ??Ovulation ? <4.1 ng/mL ??Luteal ?4.1 - ??14.5 ng/mL ??1st Trimester ?? 11.0 - ??44.0 ng/mL ??2nd Trimester ?? 25.0 - ??83.0 ng/mL ??3rd Trimester ?? 59.0 - 214.0 ng/mL ??Postmenopausal ??<0.13 ng/mL Current interpretive data was last revised 2021. Testing performed by: [facility], [address] [place] [address], [address] Blood 07/14/2024 11:1 0 AM [facility] 07/15/2024 10:04 AM [facility] Ju Maldonado MD LAB BLOOD ORDERABLES Odalys l Result [facility] (MATHEWS) 1 [facility] Fwd: [place] [address] * (ABNORMAL) Insulin, total (07/14/2024 11:10 AM [facility]) Insulin 28.0(H) 2.6 - 25.0 mcIUnit/mL Comment:Testing performed by : [address] [place], [place]., [address] Blood 07/14/2024 11:1 0 AM [facility] 07/15/2024 10:04 AM [facility] Ju Maldonado MD LAB BLOOD ORDERABLES Odalys l Result [facility] (MATHEWS) [address] [place] [address] [place] [address] * DHEA-sulfate (07/14/2024 11:10 AM [facility]) DHEA-S 73.5 60.9 - 337.0 mcg/dL Comment:Testing performed by : [facility], [address] [place] [address], [address] Blood 07/14/2024 11:1 0 AM [facility] 07/15/2024 10:04 AM [facility] Ju Maldonado MD LAB BLOOD ORDERABLES Odalys l Result Performing Organization Address City/[facility] Co de Phone Number [facility] (MATHEWS) [address] [place] [address] * Estradiol (07/14/2024 11:10 AM [facility]) Estradiol 210.0 pg/mL Comment: Interpretive Data Males: 11 ? 43 pg/mL Females: Premenopausal: 31 ? 533 pg/mL Postmenopausal: < 50 pg/mL Patients treated with Fluvestrant (Faslodex) should be tested using an alternate assay such as LC-MS due to potential for cross-reactivity. Estradiol varies widely throughout the menstrual cycle. Current interpretive data was last revised 2024. Testing performed by: [address] [address] Blood 07/14/2024 11:1 0 AM [facility] 07/15/2024 10:04 AM [facility] us Ju Maldonado MD LAB BLOOD ORDERABLES Odalys l Result [facility] (KEKE) [address] [place] [address] * ACTH (07/14/2024 11:10 AM [facility]) ACTH 7.9 7.0 - 63.0 pg/mL Comment:Testing performed by : [facility], [address] [facility], [address] Blood 07/14/2024 11:1 0 AM [facility] 07/15/2024 10:01 AM [facility] Ju Maldonado MD LAB BLOOD ORDERABLES Odalys l Result Performing Organization Address [facility]/ZIP Co de Phone Number [facility] MULLER (KKEE) 1 [facility] [place] [address] * (ABNORMAL) Testosterone, Total and Free, Serum (07/14/2024 11:10 AM [facility]) Testosterone 95(H) 8 - 60 ng/dL [facility] Comment: ADDITIONAL INFORMATION Testing performed by Liquid Chromatography-Tandem Mass Spectrometry (LC-MS/MS). This test was developed and its performance characteristics determined by [facility] in a manner consistent with CLIA requirements. This test has not been cleared or approved by the U.S. Food and Drug Administration. Test Performed by: [facility] [address] [place] [address] Port Engineer: Kojo Alvarenga Ph.D.; CLIA# [id number] Testing performed by: [facility], [address] [facility], [address] Testosterone, free 1.27(H) <0.13 - 0.98 ng/dL [facility] (KEKE) Comment: ADDITIONAL INFORMATION This test was developed and its performance characteristics determined by [facility] in a manner consistent with CLIA requirements. This test has not been cleared or approved by the U.S. Food and Drug Administration. Testing performed by: [facility], [address] [place] [address], [address] Blood 07/14/2024 11:1 0 AM [facility] 07/14/2024 10:34 PM [facility] Ju Maldonado MD LAB BLOOD ORDERABLES Odlays l Result [facility] (MATHEWS) 1 [place] [address] [facility] ref [facility] * T3, free (07/14/2024 11:10 AM [facility]) Free T3 2.5 2.0 - 4.4 pg/mL Comment:Testing performed by : [facility], [address] [place] [address], [address] Blood 07/14/2024 11:1 0 AM [facility] 07/14/2024 11:10 AM [facility] Ju Maldonado MD LAB BLOOD ORDERABLES Odalys l Result Performing Organization Address [facility] Co de Phone Number [facility] (KEKE) 1 [facility] Fwd: [place] [address] * TSH (07/14/2024 11:10 AM [facility]) Thyroid Stimulating Hormone 3.45 0.30 - 4.20 mcIUnit/mL Comment:Testing performed by : [address] [address] Blood 07/14/2024 11:1 0 AM [facility] 07/14/2024 11:10 AM [facility] us Ju Maldonado MD LAB BLOOD ORDERABLES Odalys l Result Performing Organization Address City/[facility]/ZIP Co de Phone Number [facility] MULL[facility] (KEKE) [address] [place] [address] * (ABNORMAL) T4, free (07/14/2024 11:10 AM [facility]) [facility] T4 0.88(L) 0.90 - 1.70 ng/dL Comment:Testing performed by : [address], [address] Blood 07/14/2024 11:1 0 AM [facility] 07/14/2024 11:10 AM [facility] Ju Maldonado MD LAB BLOOD ORDERABLES Odalys l Result Performing Organization Address City/[facility]/ZIP Co de Phone Number [facility] MULLER (MATHEWS) 1 [place] [phone] * (ABNORMAL) Hemoglobin A1c (07/14/2024 11:10 AM [facility]) [facility] Hgb A1C 7.0(H) 4.0 - 5.6 % Comment:Testing performed by : [facility], [address] [place] [address]., [address] Estimated Average Glucose 154 mg/dL [facility] (MATHEWS) Comment: The ADA recommends reporting an estimated Average Glucose (eAG) with all Hemoglobin A1c results using the equation derived from a study of 507 normal and diabetic adults. ??Minority populations were underrepresented and children were not included. ?? (Diabetes Care 31:0396-3181, 2008). ??The eAG is not equivalent to a fasting glucose. Testing performed by: [facility], [address] [place] [address]., [address] Blood 07/14/2024 11:1 0 AM [facility] 07/14/2024 11:11 AM [facility] Ju Maldonado MD LAB BLOOD ORDERABLES Odalys l Result [facility] ([place]WS) [address] [place] [address] * LH (07/14/2024 11:10 AM [facility]) LH 14.1 IUnits/L Comment: Interpretive Data Males: ??Adults: ? 1.7 - 8.6 ?? IUnits/L Females: ?Follicular: ? 2.4 - 12.6 ??IUnits/L ??Ovulation: ? 14.0 - 95.6 ??IUnits/L ?Luteal: ? 1.0 - 11.4 ??IUnits/L ??Postmenopausal: 7.7 - 58.5 ??IUnits/L Current interpretive data was last revised on 2018. Testing performed by: [facility], [address] [place]., [address] Blood 07/14/2024 11:1 0 AM [facility] 07/15/2024 10:04 AM [facility] Ju Maldonado MD LAB BLOOD ORDERABLES Odalys l Result [facility] (MATHEWS) 1 [facility] [place] [address] * Follicle stimulating hormone (07/14/2024 11:10 AM [facility]) FSH 2.7 IUnits/L Comment: Interpretive Data Male: Adults: ?1.5 - 12.4 IUnits/L Female: ?? Follicular: ?3.5 - 12.5 IUnits/L Ovulation: ? 4.7 - 21.5 IUnits/L Luteal: ?1.7 - 7.7 IUnits/L Postmenopausal: 25.8 - 134.8 IUnits/L Current interpretive data was last revised 2015. Testing performed by: [facility], [address] [place] [address] Blood 07/14/2024 11:1 0 AM [facility] 07/15/2024 10:04 AM [facility] us Ju Maldonado MD LAB BLOOD ORDERABLES Odalys dick Result CATRINA MULLER (MATHEWS) 1 [facility] Department [place] [address] * (ABNORMAL) Lipid panel (07/14/2024 11:10 AM [facility]) Cholesterol 224(H) 30 - 199 mg/dL Comment: [...] last revised on 2018. Testing performed by: [facility], [address] [place] [address]., [address] Triglycerides 91 <=149 mg/dL CATRINA MULLER (KEKE) [...] last revised on 2018. Testing performed by: [facility], [address] [place] [address]., [address] HDL 66 >=40 mg/dL CATRINA MULLER (KEKE) [...] last revised on 2018. Testing performed by: [facility], [address] [place] [address]., [address] LDL, calculated 142(H) <=129 mg/dL CATRINA MULLER (KEKE) Comment: Interpretive Data Ages < or = 19 years ??Acceptable: ? <110 mg/dL ??Borderline high: ??110-129 mg/dL ??High: ?>or= 130 mg/dL Ages > or = 20 years ??Optimal: ? <100 mg/dL ??Near optimal: ?100-129 mg/dL ??Borderline high: ?? 130-159 mg/dL ??High: ?>160 mg/dL Calculated using the Watt LDL-C estimating equation. This equation was implemented [...] last revised on 2024. Testing performed by: [address] [address] Non-HDL Cholesterol 158 mg/dL CATRINA MULLER (KEKE) [...] last revised on 2018. Testing performed by: [address] [address] Chol/HDL ratio 3 FORD MULLER (KEKE) Comment:Testing performed by : [address] [address] Blood 07/14/2024 11:1 0 AM [facility] 07/14/2024 11:10 AM [facility] us Ju Maldonado MD LAB BLOOD ORDERABLES Odalys jennings Result CATRINA MULLER (KEKE) 1 [facility] Department [place] [address] * (ABNORMAL) Comprehensive metabolic panel (07/14/2024 11:10 AM [facility]) [facility] Signature Sodium 138 135 - 145 mmol/L Comment:Testing performed by : [address], [place]., [address] Potassium, pl 4.3 3.3 - 4.9 mmol/L [facility] (KEKE) Comment:Testing performed by : [facility], [address] [place] [address]., [address] Chloride 102 97 - 110 mmol/L [facility] (KEKE) Comment:Testing performed by : [facility], [address] [place] [address], [address] CO2 24 22 - 32 mmol/L [facility] (KEKE) Comment:Testing performed by : [facility], [address] [place] [address], [address] Anion gap 12 2 - 15 mmol/L [facility] (KEKE) Comment:Testing performed by : [address], [address] BUN 14 6 - 25 mg/dL [facility] (KEKE) Comment:Testing performed by : [address], [address] Creatinine 0.60 0.60 - 1.10 mg/dL [facility] (KE[facility]) Comment:Testing performed by : [address], [address] Glucose 109 70 - 199 mg/dL CERNER [...] classification and Diagnosis of Diabetes Diabetes Care 202; 46: S19-S40. Current interpretive data was last revised 2022. Testing performed by: [address] [address] Calcium 8.9 8.5 - 10.3 mg/dL [facility] (KEKE) Comment:Testing performed by : [address], [address] Bilirubin, total 0.3 0.1 - 1.2 mg/dL [facility] (KEKE) Comment:Testing performed by : [facility], [address] [place] [address], [address] Protein, pl 7.3 6.5 - 8.5 g/dL [facility] ([facility]) Comment:Testing performed by : [facility], [address] [place] [address], [address] Albumin 4.0 3.5 - 5.0 g/dL [facility] ([facility]) Comment:Testing performed by : [facility], [address] [place] [address], [address] Alk phos 96 40 - 130 Units/L [facility] ([facility]) Comment:Testing performed by : [facility], [address] [place] [address], [address] ALT 67(H) 7 - 45 Units/L [facility] ([facility]) Comment:Testing performed by : [facility], [address] [place] [address], [address] AST 68(H) 10 - 45 Units/L [facility] ([facility]) Comment:Testing performed by : [address], [address] Blood 07/14/2024 11:1 0 AM [facility] 07/14/2024 11:10 AM [facility] Ju Maldonado MD LAB BLOOD ORDERABLES Odalys jennings Result [facility] (KEKE) 1 [facility] Department [place] [address] * Differential, auto (07/14/2024 10:52 AM [facility]) Neutrophil abs 4.0 1.5 - 6.5 K/cumm Comment:Testing performed by : [facility], [address] [place] [address], [address] Imm gran abs 0.0 0.0 - 0.1 K/cumm [facility] ([facility]) Comment:Testing performed by : [address], [address] Lymphocyte abs 1.8 0.8 - 3.3 K/cumm [facility] ([facility]) Comment:Testing performed by : [facility], [address], [place]., [address] Monocyte abs 0.5 0.2 - 0.8 K/cumm [facility] (KE[facility]) Comment:Testing performed by : [facility], [address] [place] [address]., [address] Eosinophil abs 0.1 0.0 - 0.5 K/cumm [facility] ([facility]) Comment:Testing performed by : [facility], [address] [place] [address]., [address] Basophil abs 0.1 0.0 - 0.1 K/cumm [facility] ([facility]) Comment:Testing performed by : [facility], [address] [place] [address]., [address] Neutrophil pct 62.5 % [facility] (KE[facility]) Comment: Interpretive Data Percent cell count reference ranges are not reported, since discordance with absolute values may lead to misinterpretation of CBC data. Current Interpretive Data was last revised on 2017. Testing performed by: [address] [address] Imm gran pct 0.3 % [facility] ([facility]) Comment: Interpretive Data Percent cell count reference ranges are not reported, since discordance with absolute values may lead to misinterpretation of CBC data. Current Interpretive Data was last revised on 2017. Testing performed by: [address] [address] Lymphocyte pct 28.1 % [facility] (KE[facility]) Comment: Interpretive Data Percent cell count reference ranges are not reported, since discordance with absolute values may lead to misinterpretation of CBC data. Current Interpretive Data was last revised on 2017. Testing performed by: [address] [address] Monocyte pct 7.1 % [facility] ([facility]) Comment: Interpretive Data Percent cell count reference ranges are not reported, since discordance with absolute values may lead to misinterpretation of CBC data. Current Interpretive Data was last revised on 2017. Testing performed by: [address] [address] Eosinophil pct 1.1 % [facility] ([facility]) Comment: Interpretive Data Percent cell count reference ranges are not reported, since discordance with absolute values may lead to misinterpretation of CBC data. Current Interpretive Data was last revised on 2017. Testing performed by: [facility], [address] [place] [address]., [address] Basophil pct 0.9 % CATRINA MULLER (KEKE) Comment: Interpretive Data Percent cell count reference ranges are not reported, since discordance with absolute values may lead to misinterpretation of CBC data. Current Interpretive Data was last revised on 2017. Testing performed by: [facility], [address] [place] [address], [address] Blood 07/14/2024 10:5 2 AM [facility] 07/14/2024 10:42 PM [facility] Chaparro Harris MD LAB BLOOD ORDERABLES Odalys l Result Performing Organization Address [facility] Co de Phone Number CATRINA MULLER (KEKE) 1 [facility] [place] [address] * (ABNORMAL) Iron profile w/ IBC (07/14/2024 10:52 AM [facility]) Pathologist [facility] Iron 39 35 - 145 mcg/dl Comment:Testing performed by : [facility], [address] [place] [address], [address] TIBC 380 250 - 400 mcg/dL CATRINA MULLER (KEKE) Comment:Testing performed by : [facility], [address] [place] [address], [address] Transferrin saturation 10(L) 20 - 50 % CATRINA MULLER (KEKE) Comment:Testing performed by : [facility], [address] [place] [address], [address] Blood 07/14/2024 10:5 2 AM [facility] 07/14/2024 10:42 PM [facility] Chaparro Harris MD LAB BLOOD ORDERABLES Odalys l Result Performing Organization Address City/[facility] Co de Phone Number CATRINA MULLER (KEKE) 1 [facility] [place] [address] * (ABNORMAL) CBC with auto differential (07/14/2024 10:52 AM [facility]) WBC 6.3 3.8 - 9.9 K/cumm Comment:Testing performed by : [address], [address] Hgb 10.6(L) 11.9 - 15.5 g/dL [facility] ([facility]) Comment:Testing performed by : [address], [address] Hct 36.5 35.6 - 45.5 % [facility] (KE[facility]) Comment:Testing performed by : [facility], [address] [place] [address], [address] Plt 334 150 - 400 K/cumm [facility] ([facility]) Comment:Testing performed by : [address], [address] MPV 10.2 9.1 - 12.3 fL [facility] ([facility]) Comment:Testing performed by : [address], [address] RBC 4.31 3.90 - 5.20 M/cumm [facility] ([facility]) Comment:Testing performed by : [address], [address] MCV 84.7 81.3 - 96.4 fL [facility] ([facility]) Comment:Testing performed by : [address], [address] MCH 24.6(L) 27.1 - 33.3 pg [facility] ([facility]) Comment:Testing performed by : [address], [address] MCHC 29.0(L) 32.3 - 35.7 g/dL [facility] ([facility]) Comment:Testing performed by : [address], [address] RDW CV 14.6 11.1 - 14.9 % [facility] ([facility]) Comment:Testing performed by : [address], [address] RDW SD 45.3 35.7 - 48.1 fL [facility] ([facility]) Comment:Testing performed by : [address], [address] NRBC abs 0.00 0.00 - 0.01 K/cumm CATRINA MULLER (MATHEWS) Comment:Testing performed by : [facility], [address] [place] [address]., [address] Blood 07/14/2024 10:5 2 AM [facility] 07/14/2024 10:42 PM [facility] Narrative CATRINA MULLER (KEKE) - 07/14/2024 10:58 PM [facility] fax to [phone] Chaparro Harris MD LAB BLOOD ORDERABLES Odalys l Result CATRINA MULLER (MATHEWS) 1 [facility] Fwd: [place] [address] * Zinc (07/14/2024 10:52 AM [facility]) Pathologist [facility] Zinc 75 60 - 106 mcg/dL [facility] ref Lab Comment: ADDITIONAL INFORMATION This test was developed and its performance characteristics determined by [facility] in a manner consistent with CLIA requirements. This test has not been cleared or approved by the U.S. Food and Drug Administration. Test Performed by: [facility] - [address] [address] Port Engineer: Kojo Alvarenga Ph.D.; CLIA# [id number] Testing performed by: [facility], [address] [place] [address]., [address] Blood 07/14/2024 10:5 2 AM [facility] 07/14/2024 10:42 PM [facility] Chaparro Harris MD LAB BLOOD ORDERABLES Odalys l Result CATRINA MULLER (MATHEWS) 1 [facility] [place] [address] [place] ref Lab * Vitamin D 25 hydroxy (07/14/2024 10:52 AM [facility]) Pathologist [facility] Vitamin D 25-OH 30 30 - 80 ng/mL Comment:Testing performed by : [facility], [address] [place] [address], [address] Blood 07/14/2024 10:5 2 AM [facility] 07/14/2024 10:42 PM [facility] Chaparro Harris MD LAB BLOOD ORDERABLES Odalys l Result CATRINA MULLER (MATHEWS) 1 [facility] [place] [address] * Ferritin (07/14/2024 10:52 AM [facility]) Ferritin 15 15 - 150 ng/mL Comment:Testing performed by : [facility], [address] [place] [address], [address] Blood 07/14/2024 10:5 2 AM [facility] 07/14/2024 10:42 PM [facility] Chaparro Harris MD LAB BLOOD ORDERABLES Odalys l Result [facility] (MATHEWS) 1 [facility] [place] [address] * Vitamin B12 (07/14/2024 10:52 AM [facility]) Vitamin B12 492 230 - 1,250 pg/mL Comment:Testing performed by : [facility], [address] [place] [address], [address] Blood 07/14/2024 10:5 2 AM [facility] 07/14/2024 10:42 PM [facility] Chaparro Harris MD LAB BLOOD ORDERABLES Odalys l Result CATRINA MULLER (MATHEWS) 1 [facility] [place] [address] * Screening Mammogram Bilateral W Brian (06/08/2024 4:56 PM [facility]) Anatomical Region Laterality Modality Breast Bilateral Mammography 06/09/2024 11:3 5 AM [facility] Impressions 06/09/2024 11:35 AM [facility] No evidence of malignancy in either breast. FINAL ASSESSMENT: BI-RADS Category 1: Negative. RECOMMENDATION: Recommend return for annual screening mammogram in 12 months. ?? Electronically signed by: Sonya Olsen M.D. Narrative 06/09/2024 11:35 AM [facility] EXAMINATION: BILATERAL SCREENING MAMMOGRAM COMPARISON: All prior [...] MICROBIOLOGY - GENERAL O RDERABLES Final Result CATRINA [address] [place] [address] from Last 3 Months or Most Recently Relevant to Health Maintenance [facility] Advance Directives For more information, please contact: [phone] * Full Code (Latest Code Status on File) Date Activated Date Inactivated Comments 11/27/2021 8:51 AM 11/27/2021 4:54 PM * Full Code Date Activated Date Inactivated Comments 11/27/2021 8:51 AM 11/27/2021 8:51 AM * Full Code Date Activated Date Inactivated Comments 02/09/2019 1:46 PM 02/09/2019 7:27 PM Care Teams Pacu Rn Relationship Specialty Start Date End Date Chaparro Harris MD [address] [place] [address] PCP - General Family Medicine 10/01/21 Jeff Umanzor MD [address] [place] [address] Referring Physician Obstetrics and Gynecology 08/10/23
--- OUTSIDE RECORDS SUMMARY | 2024-08-05 10:43 | XMS_ITS | Clinical Summary ---
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 Assessment & Plan (09/10/2021 1:05 PM MATTRESS FINISHER): Stable, well controlled; TSH at target Continue to check TSH related, no need for thyroid hormone at this time Assessment & Plan (06/25/2021 3:22 PM MATTRESS FINISHER): Stable, well controlled; continues to follow with Endocrinology; last TSH was normal, ultrasound reviewed No current medications AME (generalized anxiety disorder) 05/26/2018 Assessment & Plan (06/14/2024 3:04 PM MATTRESS FINISHER): Not well controlled, acutely worsened due to [...] BID Assessment & Plan (08/04/2022 4:52 PM MATTRESS FINISHER): Not well controlled; worsening; patient reports multiple [...] daily Assessment & Plan (09/10/2021 1:04 PM MATTRESS FINISHER): Not well controlled, continues to have elevated anxiety and panic attacks, severe anxiety associated with small health concerns Patient reports no relief previously with Lexapro sertraline Patient is unclear if she needs daily medications Continue bupropion 150 mg daily, Valium 5 mg nightly Assessment & Plan (06/25/2021 3:21 PM MATTRESS FINISHER): Stable, improving; patient reports decreased panic attacks on sertraline Continue Zoloft 50 mg daily, hydroxyzine 25 mg t.i.d. p.r.n. for panic attacks Iron deficiency anemia ever agudelo to inadequate dietary iron intake 02/04/2018 Assessment & Plan (09/15/2022 5:09 PM CDT): Stable, patient has iron infusion scheduled Assessment & Plan (09/10/2021 1:04 PM MATTRESS FINISHER): Stable, improving; no evidence of anemia or iron deficiency at this time; continue to monitor with regular CBCs Assessment & Plan (06/25/2021 3:22 PM MATTRESS FINISHER): Follows with Hematology for iron infusions Low [...] w/r/t gut microbiome. Referred to ADA and [employer] websites for additional information on topics including glycemic index/carbohydrate choices, protein sources. 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 Assessment & Plan (06/25/2021 3:23 PM MATTRESS FINISHER): Postsurgical changes, secondary to gastric sleeve in [...] been working on weight loss; follows with associate professor of pathology, cutting back on coffee and trying to eat better Encourage 30 minutes moderate intensity exercise 5 days per week Assessment & Plan (09/10/2021 1:05 PM MATTRESS FINISHER): Not well controlled, patient has history of gastric sleeve, continues to have bowel issues associated gastric sleeve No significant change in weight, patient has been working on weight loss reports no significant changes Assessment & Plan (06/25/2021 3:24 PM MATTRESS FINISHER): Not well controlled; patient is status post [...] Date Type Department Care Team Description 08/03/2024 2:30 PM MATTRESS FINISHER Infusion [address] [place] [phone] Other specified intestinal malabsorption (Primary Dx); Iron deficiency anemia secondary to inadequate dietary iron intake 08/03/2024 Telephone [facility] [address] [phone] Chaparro Harris MD Additional Services Or Orders 08/02/2024 Orders Only [facility] Health Information Management [address] [place] [address] Scanning, Provider 07/27/2024 2:30 PM MATTRESS FINISHER Infusion [address] [place] [phone] Other specified intestinal malabsorption (Primary Dx); Iron deficiency anemia secondary to inadequate dietary iron intake 07/26/2024 8:05 AM MATTRESS FINISHER Lab [facility] [address] [place] [address] 07/25/2024 Telephone [facility] [address] [phone] Blanca Christopher, RN Forms Request 07/25/2024 Orders Only [facility] Diabetes Endocrine Care at [address] [place] [phone] Ramiro Pinedo, DO Vern's disease (Primary Dx) 07/21/[address] [place] [phone] Olga Sandoval RN 07/21/[address] [place] [phone] Chaparro Harris MD 07/20/2024 3:00 PM MATTRESS FINISHER Office Visit [facility] Department of Otolaryngology Head-Neck Division [address] [place] [address] Floor [address] [place] [phone] Darline Messina PA Geographic tongue (Primary Dx); Other lesions of oral mucosa 07/18/2024 Telephone [facility] [address] [phone] Blanca Christopher RN Additional Services Or Orders 07/15/2024 Telephone [facility] [address] [place] [address] Jody Jordan, ALEXANDER 07/14/2024 11:15 AM MATTRESS FINISHER Lab [facility] [address] [place] [address] 07/14/2024 10:55 AM MATTRESS FINISHER Lab [facility] [address] [place] [phone] Fatigue, unspecified type; Iron deficiency; Vitamin D deficiency; B12 deficiency 07/14/2024 Telephone [facility] [address] [facility] [address] [place] [address] Eneida Sandoval RN 07/12/2024 Orders Only [facility] Surgery [address] [facility] Medical Office Building [address] [place] [address] Liana Bishop, ALEXANDER Gastroesophageal reflux disease without esophagitis (Primary Dx); Morbid obesity (HCC); S/P laparoscopic sleeve gastrectomy 07/12/2024 Telephone [facility] ENT [address] [facility] Advanced Medicine 11th [place] [address] [place] [address] Vanessa Beck, 07/07/2024 Telephone [facility] [address] [place] [address] Martha Stinson, ALEXANDER 06/15/2024 4:00 PM MATTRESS FINISHER Office Visit [facility] at [address] [place] [phone] Ramiro Pinedo, DO Vern's disease 06/09/2024 9:45 AM MATTRESS FINISHER Telemedicine [facility] [address] [phone] Chaparro Harris MD AME (generalized anxiety disorder) (Primary Dx) 06/08/2024 4:31 PM MATTRESS FINISHER - 06/08/2024 11:59 PM MATTRESS FINISHER Hospital Encounter [facility] Imaging and Radiology [address] [place] [phone] Screening mammogram, encounter for Discharge Disposition: Discharge to home or self care 05/30/2024 Telephone [facility] Center [address] [place] [address] Jody Jordan RN 05/17/2024 Orders Only [facility] Medical [facility] Sleep Medicine at [address] [place] [address] Thom Doyle MD Pseudotumor cerebri (Primary Dx) 05/17/[address] [facility] Sleep Medicine at [address] [place] [address] Thom Doyle MD 05/10/2024 1:15 PM MATTRESS FINISHER Office Visit [facility] [address] [facility] [address] [place] [address] Thom Doyle MD Chronic migraine without aura without status migrainosus, not intractable (Primary Dx) 05/05/2024 Telephone [facility] [address] [phone] Chaparro Harris MD Medication Problem from Last 3 Months Immunizations Name Administration Dates Next Due Influenza, Unspecified 06/02/2023,2021,08/21/2021(Deferred: Patient Refused),04/17/2021,04/16/2021(Deferred: Patient Refused),07/06/2020(Deferred: Patient Refused) Tdap 05/26/2018,07/06/2017 Surgical History Surgery Date Site/Laterality Comments [place] DELIVERY ONLY X 5 SLEEVE GASTROPLASTY 07/06/2015 [...] on file Legal Sex Female 8:26 PM MATTRESS FINISHER Gender Identity Not on file Sexual Orientation [...] MAO ,BABY BOY MICHELLE Trejo MD Delivery Location:[facility] 2011 Term C-Sec tion Last Filed Vital Signs Vital Sign Reading Time Taken Comments Blood Pressure 117/57 08/03/2024 2:18 PM MATTRESS FINISHER Pulse 81 08/03/2024 2:18 PM MATTRESS FINISHER Temperature 36.3 ??C (97.3 ??F) 08/03/2024 2:18 PM CS T Respiratory Rate 18 08/03/2024 2:18 PM MATTRESS FINISHER Oxygen Saturation 99% 08/03/2024 2:18 PM MATTRESS FINISHER Inhaled Oxygen Concentration - - Weight 119.3 kg (263 lb) 07/20/2024 2:32 PM MATTRESS FINISHER Height 162.6 cm (5' 4 ) 07/20/2024 2:32 PM MATTRESS FINISHER Body Mass Index 45.14 07/20/2024 2:32 PM MATTRESS FINISHER Plan of Treatment Health Maintenance Due Date [...] RADIOLOGY/IMAGING 08/02/2024 CORTISOL Routine 07/26/2024 8:06 AM MATTRESS FINISHER FOLATE Routine 07/14/2024 11:30 AM MATTRESS FINISHER EGFR Routine 07/14/2024 11:10 AM MATTRESS FINISHER IODINE SERUM,PLASMA Routine 07/14/2024 1 1:10 AM MATTRESS FINISHER TSH Routine 07/14/2024 11:10 AM MATTRESS FINISHER THYROID PEROXIDASE ANTIBODY Routine 07/14/2024 11:10 AM MATTRESS FINISHER TESTOSTERONE, TOTAL AND FREE, SERUM Routine 07/14/2024 11:10 AM MATTRESS FINISHER T4, FREE Routine 07/14/2024 11:10 AM MATTRESS FINISHER T3, FREE Routine 07/14/2024 11:10 AM MATTRESS FINISHER PROGESTERONE Routine 07/14/2024 11:10 AM MATTRESS FINISHER LUTEINIZING HORMONE (LH) Routine 07/14/2024 11:10 AM MATTRESS FINISHER LIPID PANEL Routine 07/14/2024 11:10 AM MATTRESS FINISHER INSULIN, TOTAL Routine 07/14/2024 11:10 AM MATTRESS FINISHER HEMOGLOBIN A1C Routine 07/14/2024 11:10 AM MATTRESS FINISHER FOLLICLE STIMULATING HORMONE Routine 07/14/2024 11:10 AM MATTRESS FINISHER ESTRADIOL Routine 07/14/2024 11:10 AM MATTRESS FINISHER DHEA-SULFATE Routine 07/14/2024 11:10 AM MATTRESS FINISHER COMPREHENSIVE METABOLIC PANEL Routine 07/14/2024 11:10 AM MATTRESS FINISHER ACTH Routine 07/14/2024 11:10 AM MATTRESS FINISHER DIFFERENTIAL AUTO Routine 07/14/2024 10: 52 AM MATTRESS FINISHER Iron deficiency VITAMIN B12 Routine 07/14/2024 10:52 AM MATTRESS FINISHER B12 deficiency VITAMIN D 25 HYDROXY Routine 07/14/2024 10:52 AM MATTRESS FINISHER Vitamin D deficiency CBC WITH AUTO DIFFERENTIAL Routine 07/14/2024 10:52 AM MATTRESS FINISHER Iron deficiency IRON PROFILE W/ IBC Routine 07/14/2024 1 0:52 AM MATTRESS FINISHER Iron deficiency FERRITIN Routine 07/14/2024 10:52 AM MATTRESS FINISHER Iron deficiency ZINC Routine 07/14/2024 10:52 AM MATTRESS FINISHER Fatigue, unspecified type SCREENING MAMMOGRAM BILATERAL W BRIAN Schedule Routine, Read Routine (OP Routine) 06/08/2024 4:56 PM MATTRESS FINISHER Screening mammogram, encounter for HEPATITIS C ANTIBODY Routine 10/12/2023 9:08 AM CDT Screening for STDs (sexually transmitted diseases) from Last 3 Months or Most Recently Relevant to Health Maintenance Results * SCAN - RADIOLOGY/IMAGING (08/02/2024) Anatomical Region Laterality Modality Other us Provider Scanning Final Result * (ABNORMAL) Cortisol (07/26/2024 8:06 AM MATTRESS FINISHER) Cortisol 0.8(L) 4.8 - 19.5 mcg/dl Comment: Interpretive Data Normal Range: ??4.8 - 19.5 mcg/dL; ??Evening: ??Half of morning value. ?? This analyte undergoes marked diurnal variation. ??Ranges indicated apply to morning specimens. ?? Current interpretive data was last revised 2018. Testing performed by: [facility], [address] [place] [address], [place]., [address] Blood 07/26/2024 8:06 AM MATTRESS FINISHER 07/26/2024 8:07 AM MATTRESS FINISHER Ju Maldonado MD LAB BLOOD ORDERABLES Odalys l Result [facility] ([place]) [facility] Department [place] [address] * Folate (07/14/2024 11:30 AM MATTRESS FINISHER) Pathologist [facility] Folic acid 7.9 >=5.0 ng/mL Comment: Hemolysis present. ??Results may be affected. Testing performed by: [facility], [address] [place] [address], [place]., [address] Blood 07/14/2024 11:3 0 AM MATTRESS FINISHER 07/14/2024 1:26 PM MATTRESS FINISHER us Ju Maldonado MD LAB BLOOD ORDERABLES Odalys jennings Result [facility] ([place]) [facility] Department [place] [address] * eGFR (07/14/2024 11:10 AM MATTRESS FINISHER) [facility] eGFR >90 >=60 mL/min/1. 73 m2 [...] was last reviewed 2021. Testing performed by: [facility], [address] [place] [address]., [address] Blood 07/14/2024 11:1 0 AM MATTRESS FINISHER 07/14/2024 10:41 PM MATTRESS FINISHER Ju Maldonado MD LAB BLOOD ORDERABLES Odalys l Result Performing Organization Address City/[facility]/ZIP Co de Phone Number [facility] ([place]) [address] [facility] [place] [address] * Iodine serum, plasma (07/14/2024 11:10 AM MATTRESS FINISHER) Iodine 52 40 - 92 ng/mL [facility] ref Lab Comment: ADDITIONAL INFORMATION This test was developed and its performance characteristics determined by [facility] in a manner consistent with CLIA requirements. This test has not been cleared or approved by the U.S. Food and Drug Administration. Test Performed by: [facility] [place] [address] Senior Hr Manager: Kojo Alvarenga Ph.D.; CLIA# [id number] Testing performed by: [facility], [address] [place] [address]., [id number] Blood 07/14/2024 11:1 0 AM MATTRESS FINISHER 07/14/2024 10:34 PM MATTRESS FINISHER Ju Maldonado MD LAB BLOOD ORDERABLES Odalys l Result Performing Organization Address City/[facility] Co de Phone Number [facility] ([place]) 1 [facility] [employer] [place], [place] [id number] [place] ref Lab * (ABNORMAL) Thyroid peroxidase antibody (TPO) (07/14/2024 11:10 AM MATTRESS FINISHER) Anti Thyroid Peroxidase 434(H) <=34 IUnits/mL Comment: ATPO Interpretive Data Results may be up to 28% higher in patients receiving Itraconazole. Current interpretive data was last revised 2020. Testing performed by: [facility], [address] [place]., [address] Blood 07/14/2024 11:1 0 AM MATTRESS FINISHER 07/15/2024 10:04 AM MATTRESS FINISHER Ju Maldonado MD LAB BLOOD ORDERABLES Odalys l Result [facility] ([place]) [facility] [place] [address] * Progesterone (07/14/2024 11:10 AM MATTRESS FINISHER) Progesterone 2.35 ng/mL Comment: Interpretive Data Males: ?<0.15 ng/mL Females: ??Follicular ?<0.20 ng/mL ??Ovulation ? <4.1 ng/mL ??Luteal ?4.1 - ??14.5 ng/mL ??1st Trimester ?? 11.0 - ??44.0 ng/mL ??2nd Trimester ?? 25.0 - ??83.0 ng/mL ??3rd Trimester ?? 59.0 - 214.0 ng/mL ??Postmenopausal ??<0.13 ng/mL Current interpretive data was last revised 2021. Testing performed by: [facility], [address] [facility] [place] [address] Blood 07/14/2024 11:1 0 AM MATTRESS FINISHER 07/15/2024 10:04 AM MATTRESS FINISHER Ju Maldonado MD LAB BLOOD ORDERABLES Odalys l Result Performing Organization Address City/[facility]/ZIP Co de Phone Number [facility] ([place]) [facility] [place] [place] [address] * (ABNORMAL) Insulin, total (07/14/2024 11:10 AM MATTRESS FINISHER) Insulin 28.0(H) 2.6 - 25.0 mcIUnit/mL Comment:Testing performed by : [facility], [address] [place] [address]., [id number] Blood 07/14/2024 11:1 0 AM MATTRESS FINISHER 07/15/2024 10:04 AM MATTRESS FINISHER Ju Maldonado MD LAB BLOOD ORDERABLES Odalys l Result [facility] ([place]) [address] [facility] [place] [address] * DHEA-sulfate (07/14/2024 11:10 AM MATTRESS FINISHER) Pathologist [facility] DHEA-S 73.5 60.9 - 337.0 mcg/dL Comment:Testing performed by : [facility], [address] [place] [address], [address] Blood 07/14/2024 11:1 0 AM MATTRESS FINISHER 07/15/2024 10:04 AM MATTRESS FINISHER Ju Maldonado MD LAB BLOOD ORDERABLES Odalys l Result Performing Organization Address City/[facility]/ZIP Co de Phone Number [facility] ([place]) [address] [facility] [place] [address] * Estradiol (07/14/2024 11:10 AM MATTRESS FINISHER) Estradiol 210.0 pg/mL Comment: Interpretive Data Males: 11 ? 43 pg/mL Females: Premenopausal: 31 ? 533 pg/mL Postmenopausal: < 50 pg/mL Patients treated with Fluvestrant (Faslodex) should be tested using an alternate assay such as LC-MS due to potential for cross-reactivity. Estradiol varies widely throughout the menstrual cycle. Current interpretive data was last revised 2024. Testing performed by: [facility], [address] [place] [address], [address] Blood 07/14/2024 11:1 0 AM MATTRESS FINISHER 07/15/2024 10:04 AM MATTRESS FINISHER Ju Maldonado MD LAB BLOOD ORDERABLES Odalys l Result [facility] ([place]) [address] [place] [address] * ACTH (07/14/2024 11:10 AM MATTRESS FINISHER) Pathologist [facility] ACTH 7.9 7.0 - 63.0 pg/mL Comment:Testing performed by : [facility], [address] [place] [address], [address] Blood 07/14/2024 11:1 0 AM MATTRESS FINISHER 07/15/2024 10:01 AM MATTRESS FINISHER Ju Maldonado MD LAB BLOOD ORDERABLES Odalys l Result Performing Organization Address [facility] Co de Phone Number [facility] ([place]) [address] [place] [address] * (ABNORMAL) Testosterone, Total and Free, Serum (07/14/2024 11:10 AM MATTRESS FINISHER) Testosterone 95(H) 8 - 60 ng/dL [place] ref Lab Comment: ADDITIONAL INFORMATION Testing performed by Liquid Chromatography-Tandem Mass Spectrometry (LC-MS/MS). This test was developed and its performance characteristics determined by [facility] in a manner consistent with CLIA requirements. This test has not been cleared or approved by the U.S. Food and Drug Administration. Test Performed by: [facility] [address] [place] [address] Senior Hr Manager: Kojo Alvarenga Ph.D.; CLIA# [id number] Testing performed by: [facility], [address] [place] [address], [place]., [address] Testosterone, free 1.27(H) <0.13 - 0.98 ng/dL [facility] ([place]) Comment: ADDITIONAL INFORMATION This test was developed and its performance characteristics determined by [facility] in a manner consistent with CLIA requirements. This test has not been cleared or approved by the U.S. Food and Drug Administration. Testing performed by: [facility], [address] [place] [address], [address] Blood 07/14/2024 11:1 0 AM MATTRESS FINISHER 07/14/2024 10:34 PM MATTRESS FINISHER us Ju Maldonado MD LAB BLOOD ORDERABLES Odalys l Result Performing Organization Address [facility]/ZIP Co de Phone Number [facility] ([place]) [address] [place] [address] [place] [address] [place] ref Lab * T3, free (07/14/2024 11:10 AM MATTRESS FINISHER) Free T3 2.5 2.0 - 4.4 pg/mL Comment:Testing performed by : [address], [address] Blood 07/14/2024 11:1 0 AM MATTRESS FINISHER 07/14/2024 11:10 AM MATTRESS FINISHER Ju Maldonado MD LAB BLOOD ORDERABLES Odalys l Result Performing Organization Address City/[facility]/ZIP Co de Phone Number [facility] ([place]) [address] [place] [address] * TSH (07/14/2024 11:10 AM MATTRESS FINISHER) Thyroid Stimulating Hormone 3.45 0.30 - 4.20 mcIUnit/mL Comment:Testing performed by : [address], [address] Blood 07/14/2024 11:1 0 AM MATTRESS FINISHER 07/14/2024 11:10 AM MATTRESS FINISHER us Ju Maldonado MD LAB BLOOD ORDERABLES Odalys l Result Performing Organization Address [facility] de Phone Number [facility] ([place]) [address] [place] [address] * (ABNORMAL) T4, free (07/14/2024 11:10 AM MATTRESS FINISHER) Free T4 0.88(L) 0.90 - 1.70 ng/dL Comment:Testing performed by : [facility], [address] [place] [address]., [address] Blood 07/14/2024 11:1 0 AM MATTRESS FINISHER 07/14/2024 11:10 AM MATTRESS FINISHER us Ju Maldonado MD LAB BLOOD ORDERABLES Odalys l Result Performing Organization Address [facility] de Phone Number [facility] ([place]) 1 [facility] [place] [address] * (ABNORMAL) Hemoglobin A1c (07/14/2024 11:10 AM MATTRESS FINISHER) [facility] Hgb A1C 7.0(H) 4.0 - 5.6 % Comment:Testing performed by : [address] [address] Estimated Average Glucose 154 mg/dL [facility] ([place]) Comment: The ADA recommends reporting an estimated Average Glucose (eAG) with all Hemoglobin A1c results using the equation derived from a study of 507 normal and diabetic adults. ??Minority populations were underrepresented and children were not included. ?? (Diabetes Care 31:3579-0331, 2008). ??The eAG is not equivalent to a fasting glucose. Testing performed by: [facility], [address] [place] [address], [place]., [address] Blood 07/14/2024 11:1 0 AM MATTRESS FINISHER 07/14/2024 11:11 AM MATTRESS FINISHER us Ju Maldonado MD LAB BLOOD ORDERABLES Odalys l Result Performing Organization Address [facility]/ZIP Co de Phone Number [facility] ([place]) [facility] Department [place] [address] * LH (07/14/2024 11:10 AM MATTRESS FINISHER) LH 14.1 IUnits/L Comment: Interpretive Data Males: ??Adults: ? 1.7 - 8.6 ?? IUnits/L Females: ?Follicular: ? 2.4 - 12.6 ??IUnits/L ??Ovulation: ? 14.0 - 95.6 ??IUnits/L ?Luteal: ? 1.0 - 11.4 ??IUnits/L ??Postmenopausal: 7.7 - 58.5 ??IUnits/L Current interpretive data was last revised on 2018. Testing performed by: [facility], [address] [place]., [address] Blood 07/14/2024 11:1 0 AM MATTRESS FINISHER 07/15/2024 10:04 AM MATTRESS FINISHER us Ju Maldonado MD LAB BLOOD ORDERABLES Odalys l Result [facility] ([place]) [facility] Department [place] [address] * Follicle stimulating hormone (07/14/2024 11:10 AM MATTRESS FINISHER) FSH 2.7 IUnits/L Comment: Interpretive Data Male: Adults: ?1.5 - 12.4 IUnits/L Female: ?? Follicular: ?3.5 - 12.5 IUnits/L Ovulation: ? 4.7 - 21.5 IUnits/L Luteal: ?1.7 - 7.7 IUnits/L Postmenopausal: 25.8 - 134.8 IUnits/L Current interpretive data was last revised 2015. Testing performed by: [facility], [address] [place]., [address] Blood 07/14/2024 11:1 0 AM MATTRESS FINISHER 07/15/2024 10:04 AM MATTRESS FINISHER us Ju Maldonado MD LAB BLOOD ORDERABLES Odalys jennings Result [facility] ([place]) [facility] Department [place] [address] * (ABNORMAL) Lipid panel (07/14/2024 11:10 AM MATTRESS FINISHER) Cholesterol 224(H) 30 - 199 mg/dL Comment: [...] last revised on 2018. Testing performed by: [facility], [address] [place] [address]., [address] Triglycerides 91 <=149 mg/dL [facility] ([place]) [...] last revised on 2018. Testing performed by: [facility], [address] [place] [address]., [address] HDL 66 >=40 mg/dL [facility] ([place]) [...] last revised on 2018. Testing performed by: [facility], [address] [place] [address]., [address] LDL, calculated 142(H) <=129 mg/dL [facility] ([place]) Comment: Interpretive Data Ages < or [...] last revised on 2024. Testing performed by: [address] [address] Non-HDL Cholesterol 158 mg/dL CATRINA MULLER ([place]) [...] last revised on 2018. Testing performed by: [facility], [address] [place] [address]., [address] Chol/HDL ratio 3 FORD MULLER ([place]) Comment:Testing performed by : [facility], [address] [place] [address]., [address] Blood 07/14/2024 11:1 0 AM MATTRESS FINISHER 07/14/2024 11:10 AM MATTRESS FINISHER us Ju Maldonado MD LAB BLOOD ORDERABLES Odalys jennings Result CATRINA MULLER ([place]) 1 [facility] Department [place] [address] * (ABNORMAL) Comprehensive metabolic panel (07/14/2024 11:10 AM MATTRESS FINISHER) Sodium 138 135 - 145 mmol/L Comment:Testing performed by : [facility], [address] [place] [address]., [address] Potassium, pl 4.3 3.3 - 4.9 mmol/L [facility] ([place]) Comment:Testing performed by : [facility], [address] [place] [address]., [address] Chloride 102 97 - 110 mmol/L [facility] ([place]) Comment:Testing performed by : [facility], [address] [place] [address], [address] CO2 24 22 - 32 mmol/L [facility] ([place]) Comment:Testing performed by : [facility], [address] [place] [address], [address] Anion gap 12 2 - 15 mmol/L [facility] ([place]) Comment:Testing performed by : [address], [address] BUN 14 6 - 25 mg/dL [facility] ([place]) Comment:Testing performed by : [facility], [address] [place] [address], [address] Creatinine 0.60 0.60 - 1.10 mg/dL [facility] ([place]) Comment:Testing performed by : [facility], [address] [place] [address], [address] Glucose 109 70 - 199 mg/dL CERNER [...] was last revised 2022. Testing performed by: [address], [address] Calcium 8.9 8.5 - 10.3 mg/dL [facility] ([place]) Comment:Testing performed by : [facility], [address] [place] [address], [address] Bilirubin, total 0.3 0.1 - 1.2 mg/dL [facility] ([place]) Comment:Testing performed by : [facility], [address] [place] [address], [address] Protein, pl 7.3 6.5 - 8.5 g/dL [facility] ([place]) Comment:Testing performed by : [facility], [address] [place] [address], [address] Albumin 4.0 3.5 - 5.0 g/dL [facility] ([place]) Comment:Testing performed by : [address], [address] Alk phos 96 40 - 130 Units/L [facility] ([place]) Comment:Testing performed by : [address], [address] ALT 67(H) 7 - 45 Units/L [facility] ([place]) Comment:Testing performed by : [address], [address] AST 68(H) 10 - 45 Units/L [facility] ([place]) Comment:Testing performed by : [address], [address] Blood 07/14/2024 11:1 0 AM MATTRESS FINISHER 07/14/2024 11:10 AM MATTRESS FINISHER Ju Maldonado MD LAB BLOOD ORDERABLES Odalys jennings Result [facility] ([place]) 1 [facility] Department [place] [address] * Differential, auto (07/14/2024 10:52 AM MATTRESS FINISHER) Neutrophil abs 4.0 1.5 - 6.5 K/cumm Comment:Testing performed by : [address], [address] Imm gran abs 0.0 0.0 - 0.1 K/cumm [facility] ([place]) Comment:Testing performed by : [address], [place]., [address] Lymphocyte abs 1.8 0.8 - 3.3 K/cumm [facility] ([place]) Comment:Testing performed by : [facility], [address] [place] [address]., [address] Monocyte abs 0.5 0.2 - 0.8 K/cumm [facility] ([place]) Comment:Testing performed by : [facility], [address] [place] [address]., [address] Eosinophil abs 0.1 0.0 - 0.5 K/cumm [facility] ([place]) Comment:Testing performed by : [facility], [address] [place] [address]., [address] Basophil abs 0.1 0.0 - 0.1 K/cumm [facility] ([place]) Comment:Testing performed by : [address] [address] Neutrophil pct 62.5 % [facility] ([place]) Comment: Interpretive Data Percent cell count reference ranges are not reported, since discordance with absolute values may lead to misinterpretation of CBC data. Current Interpretive Data was last revised on 2017. Testing performed by: [address] [address] Imm gran pct 0.3 % [facility] ([place]) Comment: Interpretive Data Percent cell count reference ranges are not reported, since discordance with absolute values may lead to misinterpretation of CBC data. Current Interpretive Data was last revised on 2017. Testing performed by: [address] [address] Lymphocyte pct 28.1 % [facility] ([place]) Comment: Interpretive Data Percent cell count reference ranges are not reported, since discordance with absolute values may lead to misinterpretation of CBC data. Current Interpretive Data was last revised on 2017. Testing performed by: [address] [address] Monocyte pct 7.1 % [facility] ([place]) Comment: Interpretive Data Percent cell count reference ranges are not reported, since discordance with absolute values may lead to misinterpretation of CBC data. Current Interpretive Data was last revised on 2017. Testing performed by: [facility] [address] [place] [address]., [address] Eosinophil pct 1.1 % [facility] ([place]) Comment: Interpretive Data Percent cell count reference ranges are not reported, since discordance with absolute values may lead to misinterpretation of CBC data. Current Interpretive Data was last revised on 2017. Testing performed by: [facility], [address] [place] [address]., [address] Basophil pct 0.9 % [facility] ([place]) Comment: Interpretive Data Percent cell count reference ranges are not reported, since discordance with absolute values may lead to misinterpretation of CBC data. Current Interpretive Data was last revised on 2017. Testing performed by: [facility], [address] [place] [address], [address] Blood 07/14/2024 10:5 2 AM MATTRESS FINISHER 07/14/2024 10:42 PM MATTRESS FINISHER Chaparro Harris MD LAB BLOOD ORDERABLES Odalys l Result Performing Organization Address City/[facility]/ZIP Co de Phone Number CATRINA MULLER ([place]) 1 [facility] [place] [address] * (ABNORMAL) Iron profile w/ IBC (07/14/2024 10:52 AM MATTRESS FINISHER) Iron 39 35 - 145 mcg/dl Comment:Testing performed by : [address] [address] TIBC 380 250 - 400 mcg/dL CATRINA MULLER ([place]) Comment:Testing performed by : [facility], [address] [place] [address], [address] Transferrin saturation 10(L) 20 - 50 % [facility] ([place]) Comment:Testing performed by : [address] [address] Blood 07/14/2024 10:5 2 AM MATTRESS FINISHER 07/14/2024 10:42 PM MATTRESS FINISHER Chaparro Harris MD LAB BLOOD ORDERABLES Odalys l Result Performing Organization Address [facility]/ZIP Co de Phone Number [facility] ([place]) 1 [facility] Department [place] [address] * (ABNORMAL) CBC with auto differential (07/14/2024 10:52 AM MATTRESS FINISHER) WBC 6.3 3.8 - 9.9 K/cumm Comment:Testing performed by : [address], [address] Hgb 10.6(L) 11.9 - 15.5 g/dL [facility] ([place]) Comment:Testing performed by : [address], [address] Hct 36.5 35.6 - 45.5 % [facility] ([place]) Comment:Testing performed by : [address], [address] Plt 334 150 - 400 K/cumm [facility] ([place]) Comment:Testing performed by : [address], [address] MPV 10.2 9.1 - 12.3 fL [facility] ([place]) Comment:Testing performed by : [address], [address] RBC 4.31 3.90 - 5.20 M/cumm [facility] ([place]) Comment:Testing performed by : [address], [address] MCV 84.7 81.3 - 96.4 fL [facility] ([place]) Comment:Testing performed by : [address], [address] MCH 24.6(L) 27.1 - 33.3 pg [facility] ([place]) Comment:Testing performed by : [address], [address] MCHC 29.0(L) 32.3 - 35.7 g/dL [facility] ([place]) Comment:Testing performed by : [address], [address] RDW CV 14.6 11.1 - 14.9 % [facility] ([place]) Comment:Testing performed by : [address], [address] RDW SD 45.3 35.7 - 48.1 fL [facility] ([place]) Comment:Testing performed by : [facility], [address] [place] [address]., [address] NRBC abs 0.00 0.00 - 0.01 K/cumm [facility] ([place]) Comment:Testing performed by : [facility], [address] [place] [address], [address] Blood 07/14/2024 10:5 2 AM MATTRESS FINISHER 07/14/2024 10:42 PM MATTRESS FINISHER Narrative CATRINA YOHANA ([place]) - 07/14/2024 10:58 PM MATTRESS FINISHER fax to [phone] Chaparro Harris MD LAB BLOOD ORDERABLES Odalys l Result Performing Organization Address [facility] Co de Phone Number LAUREGILBERTO YOH[facility] ([place]) 1 [facility] [place] [address] * Zinc (07/14/2024 10:52 AM MATTRESS FINISHER) [facility] Signature Zinc 75 60 - 106 mcg/dL [place] ref Lab Comment: ADDITIONAL INFORMATION This test was developed and its performance characteristics determined by [facility] in a manner consistent with CLIA requirements. This test has not been cleared or approved by the U.S. Food and Drug Administration. Test Performed by: [facility] [address] [place] [address] Senior Hr Manager: Kojo Alvarenga Ph.D.; CLIA# [id number] Testing performed by: [facility], [address] [place] [address]., [address] Blood 07/14/2024 10:5 2 AM MATTRESS FINISHER 07/14/2024 10:42 PM MATTRESS FINISHER Chaparro Harris MD LAB BLOOD ORDERABLES Odalys l Result Performing Organization Address [facility]/ZIP Co de Phone Number CATRINA MULLER ([place]) 1 [place] [address] [facility] ref [facility] * Vitamin D 25 hydroxy (07/14/2024 10:52 AM MATTRESS FINISHER) Vitamin D 25-OH 30 30 - 80 ng/mL Comment:Testing performed by : [facility], [address] [place] [address], [address] Blood 07/14/2024 10:5 2 AM MATTRESS FINISHER 07/14/2024 10:42 PM MATTRESS FINISHER Chaparro Harris MD LAB BLOOD ORDERABLES Odalys l Result [facility] ([place]) 1 [place] [address] * Ferritin (07/14/2024 10:52 AM MATTRESS FINISHER) Pathologist [facility] Ferritin 15 15 - 150 ng/mL Comment:Testing performed by : [facility], [address] [place] [address], [address] Blood 07/14/2024 10:5 2 AM MATTRESS FINISHER 07/14/2024 10:42 PM MATTRESS FINISHER Chaparro Harris MD LAB BLOOD ORDERABLES Odalys l Result [facility] ([place]) 1 [facility] [place] [address] * Vitamin B12 (07/14/2024 10:52 AM MATTRESS FINISHER) Pathologist [facility] Vitamin B12 492 230 - 1,250 pg/mL Comment:Testing performed by : [facility], [address] [place] [address], [facility], [address] Blood 07/14/2024 10:5 2 AM MATTRESS FINISHER 07/14/2024 10:42 PM MATTRESS FINISHER Chaparro Harris MD LAB BLOOD ORDERABLES Odalys l Result [facility] ([place]) 1 [facility] [place] [address] * Screening Mammogram Bilateral W Brian (06/08/2024 4:56 PM MATTRESS FINISHER) Anatomical Region Laterality Modality Breast Bilateral Mammography 06/09/2024 11:3 5 AM MATTRESS FINISHER Impressions 06/09/2024 11:35 AM MATTRESS FINISHER No evidence of malignancy in either breast. FINAL ASSESSMENT: BI-RADS Category 1: Negative. RECOMMENDATION: Recommend return for annual screening mammogram in 12 months. ?? Electronically signed by: Sonya Olsen M.D. Narrative 06/09/2024 11:35 AM MATTRESS FINISHER EXAMINATION: BILATERAL SCREENING MAMMOGRAM COMPARISON: All prior [...] - GENERAL O RDERABLES Final Result CATRINA [address] [address] [place] [address] from Last 3 Months or Most Recently Relevant to Health Maintenance [facility] Advance Directives For more information, please contact: [phone] * Full Code (Latest Code Status on File) Date Activated Date Inactivated Comments 11/27/2021 8:51 AM 11/27/2021 4:54 PM * Full Code Date Activated Date Inactivated Comments 11/27/2021 8:51 AM 11/27/2021 8:51 AM * Full Code Date Activated Date Inactivated Comments 02/09/2019 1:46 PM 02/09/2019 7:27 PM Care Teams Locomotive Operator Relationship Specialty Start Date End Date Chaparro Harris MD [address] [place] [address] PCP - General Family Medicine 10/01/21 Jeff Umanzor MD [address] [place] [address] Referring Physician Obstetrics and Gynecology 08/10/23
--- OUTSIDE RECORDS SUMMARY | 2024-08-05 10:43 | XMS_ITS | Encounter Summary ---
Author Organization [facility] Healthcare Address [address] [place] [address] Care Team Providers Care Cytotechnologist/Cytology Supervisor Name Role Phone Chaparro Harris MD Primary Care Provider [phone] Jeff Umanzor MD Unavailable [phone] Reason for Visit * Auth/Cert (Routine) Specialty Diagnoses / Procedures Referred By Contac t Referred To Contact Diagnoses Rectal bleeding Rectal pain Rectal bleeding [K62.5] Rectal pain [K62.89] Procedures OK SIGMOIDOSCOPY FLX DX W/COLLJ SPEC BR/WA IF PFRMD SIGMOIDOSCOPY Referral ID Status Reason Start Date Expiration Date Visits Re quested Visits Authorized [id number] 1 1 Encounter Details Date Type Department Care Team (Late st Contact Info) Description 04/15/2024 Hospital Encounter [facility] [address] [place] [address] Laverne Monteiro MD [address] [place] [id number] Social History Tobacco Use Types Packs/Day Years [...] on file Legal Sex Female 8:26 PM [employer] CONSULTANT Gender Identity Not on file Sexual Orientation [...] pain documented in this encounter Care Teams Cytotechnologist/Cytology Supervisor Relationship Specialty Start Date End Date Chaparro Harris MD [address] [place] [address] PCP - General Family Medicine 10/01/21 Jeff Umanzor MD [address] [place] [address] Referring Physician Obstetrics and Gynecology 08/10/23 documented as of this encounter
--- OUTSIDE RECORDS SUMMARY | 2024-08-05 10:43 | XMS_ITS | Clinical Summary ---
Author Organization [facility] Address [address] [place] [address] Care Team Providers Care Name Plate Stamping Machine Operator Name Role Phone Addie Jennings MD Unavailable [phone] Thang Heck MD Primary Care Provider [phone] [facility],non-owned Affiliates and Associated Physician Practices is amultiple site organization consisting of ambulatory clinics and hospital sitesin [place], [place], [place] and [place]. This disclosure is being madepursuant to the Care Everywhere program and may not contain all information available regarding this patient. Last updated 18.[facility] Allergies Active Allergy Reactions Criticality Noted Date Comments Nsaids Other Low Reaction: Medications * Be aware that medications may not be up to date on this document. Alwaysverify current medications with the patient. Medication Sig Dispensed Refills Start Date End Date Status HYDROcodone-acetami nophen ([place]) 5-325 MG tablet TAKE 1 OR 2 [...] Comments Blood Pressure 136/73 07/03/2022 3:58 PM BUILDING EQUIPMENT OPERATOR Pulse 85 07/03/2022 3:58 PM BUILDING EQUIPMENT OPERATOR Temperature 37.1 ??C (98.7 ??F) 07/03/2022 3:58 PM CS T Respiratory Rate 16 07/03/2022 3:58 PM BUILDING EQUIPMENT OPERATOR Oxygen Saturation 100% 07/03/2022 3:58 PM BUILDING EQUIPMENT OPERATOR Inhaled Oxygen Concentration - - Weight 117.9 kg (260 lb) 07/03/2022 3:58 PM BUILDING EQUIPMENT OPERATOR Height 162.6 cm (5' 4 ) 07/03/2022 3:58 PM BUILDING EQUIPMENT OPERATOR Body Mass Index 44.63 07/03/2022 3:58 PM BUILDING EQUIPMENT OPERATOR Plan of Treatment Health Maintenance Due Date [...] Resulting Agency Comment Lab Testing performed at: [address] ??[facility] [id number] Lottie Verduzco OVERHAULER-CLINICAL CARE LEADER LAB - CHEMI STRY ORDERABLES [facility] ACCOUNT BILL [address] [place] [address] * ALIZE DIAG DIRECT DIG IMAGE BILATERAL G0204 (05/07/2018 9:24 AM CDT) Anatomical Region Laterality Modality Breast Bilateral Mammography 05/07/2018 9:36 AM CDT Addenda Addendum by Mellisa Drake MD on 06/04/2018 11:19 AM BUILDING EQUIPMENT OPERATOR Previous mammograms from [facility] on 04/10/2016 and 03/27/2016 [...] [facility] utilizes [employer] as a reminder system to notify patients [...] utilized. PRIOR: Previous mammogram was performed at [facility]. This was not available for review at [...] utilized. PRIOR: Previous mammogram was performed at [facility]. This was not available for review at [...] [facility] utilizes [employer] as a reminder system to notify patients of their next recommended mammogram. Reading Radiologist: Mellisa Drake MD on 05/07/2018 at 10:53 AM Mellisa Drake MD MAMMO ORDERABLES from Last 3 Months or Most Recently Relevant to Health Maintenance Advance Directives * Full Code (Latest Code Status on File) Date Activated Date Inactivated Comments 03/30/2010 2:48 PM 04/09/2010 5:05 AM Care Teams Name Plate Stamping Machine Operator Relationship Specialty Start Date End Date Thang Heck MD [address] [place] [address] PCP - General 06/10/22 Addie Jennings MD [address] [place] [id number] Endocrinology 01/31/20
--- OUTSIDE RECORDS SUMMARY | 2024-08-05 10:43 | XMS_ITS | CONTINUITY OF CARE DOCUMENT ---
Author Name yaima erwin Address Unknown Organization [facility] Address [address] [place] [address] Phone [phone] Care Team Providers Care Group Practice Pediatrician Name Role Phone Peter PINK, Daisy Unavailable ANAYA PINK, RAJWINDER Unavailable [phone] INSURANCE PROVIDERS Payer name Policy type / Coverage type [place] red [employer] party ID [facility] [id number] Other [id number] HEALTHCARE AND FAMILY SERVICES Medicaid 0 [id number]
--- OUTSIDE RECORDS SUMMARY | 2024-08-05 10:43 | XMS_ITS ---
Author Organization [facility] Address [address] [facility] [address] [place] [address] Phone Care Team Providers Care Hand Wood Sander Name Role Phone Provider, None Primary Care Provider Unavailblank e [facility] Status:Enrolled (Active) Start date:08/03/2024 Enrollment date:08/03/2024 Related social drivers of health:Intimate Partner Violence, Social Connections, Alcohol Use, Financial Resource Strain, Depression, Stress, Physical Activity, Food Insecurity, Transportation Needs, Housing Stability, Utilities Continued Care and Services Coordination
--- OUTSIDE RECORDS SUMMARY | 2024-08-05 10:43 | XMS_ITS | Encounter Summary ---
Author Organization [employer] Care Team Providers Care Record Clerk Salesperson Name Role Phone Provider, None Primary Care Provider Unavailabl e Encounter Details Date Type Department Care Team (Latest Contact Info) Description 08/04/2024 Travel Social History Tobacco Use Types Packs/Day Years [...] Sex Assigned at Female 05/23/2024 7:05 PM PURCHASER Legal Sex Female 1:02 PM PURCHASER Gender Identity Female 05/23/2024 7:05 PM PURCHASER Sexual Orientation Not on file documented as of this encounter Plan of Treatment Not on file documented as of this encounter Visit Diagnoses Not on filedocumented in this encounter Care Teams Record Clerk Salesperson Relationship Specialty Start Date End Date Provider, None VENKAT PCP - General 08/05/22 documented as of this encounter
--- OUTSIDE RECORDS SUMMARY | 2024-08-05 10:43 | XMS_ITS | Clinical Summary ---
Author Organization [facility] Address [address] [address] Phone Care Team Providers Care In Room Dining Server Name Role Phone Provider, None Primary Care Provider Unavailabl e Allergies No known active allergies Medications ondansetron (ZOFRAN-ODT) 4 MG TABLET DISPERSIBLEIndi cations:Nausea and Vomiting Take 1 Tablet by mouth every 8 hours as needed for Nausea - 1st line. Indications: Nausea and Vomiting 10 Tablet 08/04/2024 Active Active Problems No known active problems Encounters Date Type Department Care Team Description 08/04/2024 6:43 PM [facility] - 08/04/2024 9:25 PM [facility] Emergency [facility] [address] [place] [address] Sandy Leyva APRN, CLOTH COVERER Generalized abdominal pain Discharge Disposition: Discharged to home or Selfcare 08/04/2024 Travel 05/23/2024 7:00 PM LEGAL INTERN - 05/23/2024 10:15 PM [facility] Emergency [facility] [address] [place] [address] Maurice Coy MD Acute nonintractable headache, unspecified [...] Sex Assigned at Female 05/23/2024 7:05 PM LEGAL INTERN Legal Sex Female 1:02 PM LEGAL INTERN Gender Identity Female 05/23/2024 7:05 PM LEGAL INTERN Sexual Orientation Not on file Last Filed Vital Signs Vital Sign Reading Time Taken Comments Blood Pressure 138/91 08/04/2024 9:24 PM LEGAL INTERN Pulse 97 08/04/2024 9:24 PM LEGAL INTERN Temperature 36.7 ??C (98.1 ??F) 08/04/2024 6:39 PM CS T Respiratory Rate 14 08/04/2024 9:24 PM LEGAL INTERN Oxygen Saturation 100% 08/04/2024 9:24 PM LEGAL INTERN Inhaled Oxygen Concentration - - Weight 117.9 kg (260 lb) 08/04/2024 6:39 PM LEGAL INTERN Height 165.1 cm (5' 5 ) 08/04/2024 6:39 PM LEGAL INTERN Body Mass Index 43.27 08/04/2024 6:39 PM LEGAL INTERN Plan of Treatment Health Maintenance Due Date [...] 05/26/2018, 07/2017 TdaP Immunization Completed 05/26/2018, 07/06/2017 Influenza Immunization Completed , 06/02/2023, 04/14/2022, Additional history exists Discussion re Starting/Frequency of Mammograms Completed 06/08/2024, 06/01/2023, 08/18/2022, Additional history exists Meningococcal Immunization (ACWY) Aged [...] CONTRAST) Stat with Interpretation 08/04/2024 7:54 PM LEGAL INTERN GOLD TOP TUBE STAT 08/04/2024 7:26 PM LEGAL INTERN BLUE TOP TUBE STAT 08/04/2024 7:26 PM LEGAL INTERN CBC WITH AUTO DIFFERENTIAL STAT 08/04/2024 7:26 PM LEGAL INTERN EXTRA TUBES STAT 08/04/2024 7:26 PM LEGAL INTERN CMP (COMPREHENSIVE METABOLIC PANEL) STAT 08/04/2024 7:26 PM LEGAL INTERN COMPLETE BLOOD COUNT (CBC) WITH DIFF STAT 08/04/2024 7:26 PM LEGAL INTERN POCT URINE HCG () STAT 08/04/2024 6:50 PM LEGAL INTERN URINALYSIS REFLEX IF INDICATED BY ABNORMAL RESULTS STAT 08/04/2024 6:[address] HEAD OR BRAIN WO CONTRAST Stat with Interpretation 05/23/2024 8:22 PM LEGAL INTERN URINALYSIS REFLEX IF INDICATED BY ABNORMAL RESULTS STAT 05/23/2024 8:04 PM LEGAL INTERN POCT URINE HCG () STAT 05/23/2024 8:03 PM LEGAL INTERN BLUE TOP TUBE STAT 05/23/2024 6:41 PM LEGAL INTERN CBC WITH AUTO DIFFERENTIAL STAT 05/23/2024 6:41 PM LEGAL INTERN TROPONIN I, HIGH SENSITIVITY (HSTRP) STAT 05/23/2024 6:41 PM LEGAL INTERN EXTRA TUBES STAT 05/23/2024 6:41 PM LEGAL INTERN CMP (COMPREHENSIVE METABOLIC PANEL) STAT 05/23/2024 6:41 PM LEGAL INTERN COMPLETE BLOOD COUNT (CBC) WITH DIFF STAT 05/23/2024 6:41 PM LEGAL INTERN POCT GLUCOSE STAT 05/23/2024 6:38 PM LEGAL INTERN EKG 12 LEAD STAT 05/23/2024 6:31 PM LEGAL INTERN EKG SCAN 05/23/2024 12:00 AM LEGAL INTERN from Last 3 Months Results * CT RENAL STONE STUDY (ABDOMEN AND PELVIS W/O CONTRAST) (08/04/2024 7:54 PM LEGAL INTERN) Anatomical Region Laterality Modality Abdomen N/A Computed Tomogra phy 08/04/2024 8:07 PM LEGAL INTERN Impressions 08/04/2024 8:09 PM LEGAL INTERN IMPRESSION: ?? 1. ?? No gross CT finding to explain the patient's symptoms. 2. ?? Prominent uterus. ??Ascencion of gas within the lower uterine segment, likely due to reflux. Narrative 08/04/2024 8:09 PM LEGAL INTERN EXAM DESCRIPTION: ?? CT RENAL STONE STUDY [...] PM T: ??08/04/2024 8:07 PM Report ID: [id number] Reading Location: ??[id number] Procedure Note Skip Ta MD - 08/04/2024 [...] Skip Ta M.D. AG: GERMÁN Report ID: [id number] Reading Location: [place] [address] IMPRESSION: 1. No gross CT finding to explain the patient's symptoms. 2. Prominent uterus. Ascencion of gas within the lower uterine segment, likely due to reflux. Sandy Leyva APRN, CNP IMG CT ORDERABLES Fin al Result * Gold Top Tube (08/04/2024 7:26 PM LEGAL INTERN) Blood No Phlebotomy Charged / Unknown 08/04/2024 7:26 PM LEGAL INTERN 08/04/2024 7:38 PM LEGAL INTERN Sandy Leyva APRN, CNP CHEMISTRY ORDERABLES Final Result [facility] [place] [address] * Blue Top Tube (08/04/2024 7:26 PM LEGAL INTERN) Only the most recent of2 resultswithin the time period is included. Blood No Phlebotomy Charged / Unknown 08/04/2024 7:26 PM LEGAL INTERN 08/04/2024 7:38 PM LEGAL INTERN Sandy Leyva APRN, CLOTH COVERER HEMATOLOGY ORDERABLES Final Result [facility] [place] [address] * (ABNORMAL) CBC with Auto Differential (08/04/2024 7:26 PM LEGAL INTERN) Only the most recent of2 resultswithin the time period is included. WBC 6.97 4.00 - 12.00 10(3)/mcL 08/04/2024 7:40 PM LEGAL INTERN [facility] RBC 4.46 3.80 - 5.30 10(6)/mcL 08/04/2024 7:40 PM LEGAL INTERN [facility] HEMOGLOBIN (HGB) 11.5(L) 12.0 - 15.8 g/dL 08/04/2024 7:40 PM LEGAL INTERN [facility] HEMATOCRIT (HCT) 36.2 36.0 - 47.0 % 08/04/2024 7:40 PM LEGAL INTERN [facility] MCV 81.2(L) 82.0 - 96.0 fL 08/04/2024 7:40 PM LEGAL INTERN [facility] MCH 25.8(L) 26.0 - 34.0 pg 08/04/2024 7:40 PM LEGAL INTERN [facility] MCHC 31.8 31.0 - 36.0 g/dL 08/04/2024 7:40 PM LEGAL INTERN [facility] PLATELET COUNT 348 140 - 440 10(3)/mcL 08/04/2024 7:40 PM [facility] RDW 16.7(H) 11.8 - 15.5 % 08/04/2024 7:40 PM LEGAL INTERN [facility] MPV 9.9 9.7 - 12.4 fL 08/04/2024 7:40 PM LEGAL INTERN [facility] NEUTROPHILS 63.8 47.0 - 73.0 % 08/04/2024 7:40 PM LEGAL INTERN [facility] LYMPHOCYTES 27.3 18.0 - 42.0 % 08/04/2024 7:40 PM LEGAL INTERN [facility] MONOCYTES 7.3 4.0 - 12.0 % 08/04/2024 7:40 PM LEGAL INTERN [facility] EOSINOPHILS 1.0 0.0 - 5.0 % 08/04/2024 7:40 PM [facility] BASOPHILS 0.6 0.0 - 1.0 % 08/04/2024 7:40 PM [facility] ABSOLUTE NEUTROPHILS 4.45 1.60 - 7.70 10(3)/[facility] 08/04/2024 7:40 PM [facility] ABSOLUTE LYMPHOCYTES 1.90 1.30 - 3.20 10(3)/[facility] 08/04/2024 7:40 PM [facility] ABSOLUTE MONOCYTES 0.51 0.20 - 1.00 10(3)/[facility] 08/04/2024 7:40 PM LEGAL INTERN [facility] ABSOLUTE EOSINOPHIL 0.07 0.00 - 0.40 10(3)/[facility] 08/04/2024 7:40 PM [facility] ABSOLUTE BASOPHILS 0.04 0.00 - 0.10 10(3)/[facility] 08/04/2024 7:40 PM [facility] NRBC PER 100 WBC 0 08/04/19 7:40 PM [facility] Blood Venipuncture / Unknown 08/04/2024 7:26 PM LEGAL INTERN 08/04/2024 7:37 PM LEGAL INTERN us Sandy Leyva CONSTRUCTION TECHNOLOGY INSTRUCTOR, CLOTH COVERER HEMATOLOGY ORDERABLES Final Result [facility] [place] [address] * (ABNORMAL) Comprehensive Metabolic Panel (Cmp) [id number] (08/04/2024 7:26 PM [facility]) Only the most recent of2 resultswithin the time period is included. SODIUM 141 136 - 145 mmol/L 08/04/2024 8:00 PM [facility] POTASSIUM 3.6 3.5 - 5.1 mmol/L 08/04/2024 8:00 PM [facility] CHLORIDE 107 98 - 107 mmol/L 08/04/2024 8:00 PM [facility] CO2, VENOUS 25 22 - 30 mmol/L 08/04/2024 8:00 PM [facility] ANION GAP 12.6 <18.0 mmol/L 08/04/2024 8:00 PM [facility] GLUCOSE 167(H) 70 - 99 mg/dL 08/04/2024 8:00 PM [facility] BUN 11 5 - 18 mg/dL 08/04/2024 8:00 PM [facility] CREATININE, BLOOD 0.84 0.60 - 1.00 mg/dL 08/04/2024 8:00 PM [facility] BUN/CREATININE RATIO 13 12 - 20 ratio 08/04/2024 8:00 PM [facility] TOTAL PROTEIN 8.0 6.0 - 8.0 g/dL 08/04/2024 8:00 PM [facility] ALBUMIN 4.2 3.5 - 5.0 g/dL 08/04/2024 8:00 PM [facility] A/G RATIO 1.1 1.0 - 2.2 08/04/2024 8:00 PM [facility] CALCIUM 9.3 8.7 - 10.5 mg/dL 08/04/2024 8:00 PM [facility] T BILI 0.2 0.2 - 1.2 mg/dL 08/04/2024 8:00 PM LEGAL INTERN [facility] SGOT (AST) 40 6 - 42 U/L 08/04/2024 8:00 PM LEGAL INTERN [facility] SGPT (ALT) 46 6 - 55 U/L 08/04/2024 8:00 PM LEGAL INTERN [facility] ALKALINE PHOSPHATASE 88 40 - 150 U/L 08/04/2024 8:00 PM LEGAL INTERN [facility] GFR, ESTIMATED >60 >=60 08/04/2024 8:00 PM LEGAL INTERN [facility] Comment: Creatinine Clearance is the preferred criteria for selecting drug dose adjustments in renally impaired patients. ??The GFR is provided as additional pertinent clinical information. GFR is reported in mL/min/1.73 sq m. Calculation based on the Chronic Kidney Disease Epidemiology Collaboration (CKD- EPI) equation refit without adjustment for race. GFR, EST. >60 >=60 025 8:00 PM LEGAL INTERN [facility] GFR, EST. NONAFRICAN >60 >=60 08/04/2024 8:00 PM LEGAL INTERN [facility] Blood Venipuncture / Unknown 08/04/2024 7:26 PM LEGAL INTERN 08/04/2024 7:37 PM LEGAL INTERN us Sandy Leyva APRN, CLOTH COVERER CHEMISTRY ORDERABLES Final Result [facility] [place] [address] * POCT Urine HCG () (08/04/2024 6:50 PM LEGAL INTERN) Only the most recent of2 resultswithin the time period is included. POC URINE Negative POC URINE CONTROL Maintenance Shop Clerk Pass Urine 08/04/2024 6:50 PM LEGAL INTERN us Colt Lozano MD POINT OF CARE TESTING (SC NUMO) Final Result * (ABNORMAL) URINALYSIS REFLEX IF INDICATED BY ABNORMAL RESULTS (08/04/2024 6:46 PM LEGAL INTERN) Only the most recent of2 resultswithin the time period is included. SPECIFIC GRAVITY 1.020 1.003 - 1.030 08/04/2024 7:24 PM [facility] URINE PH 7.0 5.0 - 9.0 08/04/2024 7:24 PM [facility] WBC ESTERASE Negative Negative 08/04/2024 7:24 PM [facility] NITRITE Negative Negative 08/04/2024 7:24 PM [facility] PROTEIN, RANDOM URINE 15 mg/dL(A) Negative 08/04/2024 7:24 PM [facility] URINE GLUCOSE, QUAL Negative Negative 08/04/2024 7:24 PM [facility] URINE KETONES Negative Negative 08/04/2024 7:24 PM [facility] UROBILINOGEN Normal Normal mg/dL 08/04/2024 7:24 PM [facility] URINE BLOOD 10 /uL(A) Negative renee/ul 08/04/2024 7:24 PM [facility] URINALYSIS COLOR Yellow 08/04/19 7:24 PM [facility] URINALYSIS CLARITY Clear 08/04/2024 7:24 PM [facility] WBC (Urine) 0-5 Negative, 0-5 /hpf 08/04/2024 7:24 PM [facility] URINE RBC'S 3-5(A) Negative, 0-2 /hpf 08/04/2024 7:24 PM [facility] EPITHELIAL CELLS Moderate amount /lpf 08/04/2024 7:24 PM [facility] BACTERIA, URINE Few(A) Negative /hpf 08/04/2024 7:24 PM [facility] CRYSTALS Amorphous urates 08/04/2024 7:24 PM [facility] Urine URINE SPECIMEN COLLECTION, CLEAN CATCH / Unknown Non-Phlebotomy Collection / Unknown 08/04/2024 6:46 PM LEGAL INTERN 08/04/2024 6:58 PM LEGAL INTERN us Colt Lozano MD URINE ORDERABLES Final Re sult [facility] [place] [address] * CT HEAD OR BRAIN WO CONTRAST (05/23/2024 8:22 PM LEGAL INTERN) Anatomical Region Laterality Modality Head N/A Computed Tomogra phy 05/23/2024 9:26 PM LEGAL INTERN Impressions 05/23/2024 9:29 PM LEGAL INTERN IMPRESSION: 1. ?? No acute intracranial findings. Narrative 05/23/2024 9:29 PM LEGAL INTERN EXAM DESCRIPTION: CT HEAD OR BRAIN WO [...] PM T: ??05/23/2024 9:26 PM Report ID: [id number] Reading Location: ??[id number] Procedure Note Chace Singer MD - 05/23/2024 [...] Chace Singer M.D. AT: AT Report ID: [id number] Reading Location: [id number] IMPRESSION: 1. No acute intracranial findings. Maurice Coy MD IMG CT ORDERABLES Fi nal Result * TROPONIN I, HIGH SENSITIVITY (HSTRP) (05/23/2024 6:41 PM LEGAL INTERN) TROPONIN I, HIGH SENSITIVITY- RODRIGUEZ <3 <=14 ng/L 05/23/2024 10:01 PM LEGAL INTERN [facility] Comment: High-sensitivity troponin I results are reported in ng/L making the result appear to be 1,000 times higher than the contemporary troponin I value which is reported in ng/ml. Results from [facility]. Blood Venipuncture / Unknown 05/23/2024 6:41 PM LEGAL INTERN 05/23/2024 6:50 PM LEGAL INTERN Maurice Coy MD CHEMISTRY ORDERABLES Final Result [facility] [place] [address] * POCT Glucose (05/23/2024 6:38 PM LEGAL INTERN) GLUCOSE,BEDSIDE POCT 91 70 - 99 mg/dL 05/23/2024 6:54 PM LEGAL INTERN [facility] Blood 05/23/2024 6:38 PM LEGAL INTERN 05/23/2024 6:54 PM LEGAL INTERN us None Provider POINT OF CARE TESTING Final Resu lt Performing Organization Address [facility] de Phone Number [facility] [place] [address] * EKG 12 LEAD (05/23/2024 6:31 PM LEGAL INTERN) Ventricular Rate 79 BPM EXTERNAL EKG Atrial Rate 79 BPM EXTERNAL EKG P-R Interval 160 ms EXTERNAL EKG QRS Duration 86 ms EXTERNAL EKG Q-T Duration 394 ms EXTERNAL EKG QTC CALCULATION 451 ms EXTERNAL EKG P [place] 33 degrees EXTERNAL EKG R [place] 13 degrees EXTERNAL EKG T [place] 30 degrees EXTERNAL EKG 05/23/2024 6:31 PM LEGAL INTERN Impressions EXTERNAL EKG - 05/24/2024 1:00 PM LEGAL INTERN Normal sinus rhythm Normal ECG When compared with ECG of 03/27/2024 No significant change was found ~ ~ Confirmed by RUBÉN FERRARO ([id number]) on 05/24/2024 1:00:31 PM Narrative Procedure Note Rubén Ferraro MD - 05/24/2024 IMPRESSION: Normal sinus rhythm Normal ECG When compared with ECG of 03/27/2024 No significant change was found ~ ~ Confirmed by RUBÉN FERRARO ([id number]) on 05/24/2024 1:00:31 PM us Wendy Stoddard MD IMG ECG ORDERABLES Final Resu lt EXTERNAL EKG * EKG SCAN (05/23/2024 12:00 AM LEGAL INTERN) 05/23/2024 us Provider Scan IMG ECG ORDERABLES Final Result RESULTING AGENCY from Last 3 Months Insurance MEDICAID [employer] Care Teams In Room Dining Server Relationship Specialty Start Date End Date Provider, None [place] PCP - General 08/05/22
--- OUTSIDE RECORDS SUMMARY | 2024-08-05 10:43 | XMS_ITS | Encounter Summary ---
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
--- OUTSIDE RECORDS SUMMARY | 2024-08-05 10:43 | XMS_ITS | Patient Health Summary ---
Author Organization [facility] Address [address] [address] Care Team Providers Care Coordinator Of Rehabilitation Services Name Role Phone Addie Jennings MD Unavailable Thang Heck MD Primary Care Provider [phone] Note from [facility],non-owned Affiliates and Associated Physician Practices is amultiple site organization consisting of ambulatory clinics and hospital sitesin [place], [place] and [place]. This disclosure is being madepursuant to the Care Everywhere program and may not contain all information available regarding this patient. Last updated 18.[facility] Allergies * Nsaids(Other) -Low Criticality Medications * Be aware that medications may not be up to date on this document. Alwaysverify current medications with the patient. * HYDROcodone-acetaminophen (Hope) 5-325 MG tablet(Started 05/31/2022) TAKE 1 OR [...] Comments Blood Pressure 136/73 07/03/2022 3:58 PM CLOCK AND WATCH HANDS PAINTER Pulse 85 07/03/2022 3:58 PM CLOCK AND WATCH HANDS PAINTER Temperature 37.1 ??C (98.7 ??F) 07/03/2022 3:58 PM CS T Respiratory Rate 16 07/03/2022 3:58 PM CLOCK AND WATCH HANDS PAINTER Oxygen Saturation 100% 07/03/2022 3:58 PM CLOCK AND WATCH HANDS PAINTER Inhaled Oxygen Concentration - - Weight 117.9 kg (260 lb) 07/03/2022 3:58 PM CLOCK AND WATCH HANDS PAINTER Height 162.6 cm (5' 4 ) 07/03/2022 3:58 PM CLOCK AND WATCH HANDS PAINTER Body Mass Index 44.63 07/03/2022 3:58 PM CLOCK AND WATCH HANDS PAINTER Procedures * LAB RESULTS ORDER(Performed 02/25/2023) * LAB RESULTS ORDER(Performed 02/25/2023) * EKG 12-LEAD(Performed 07/03/2022) Performed for Other chest pain * XR CHEST 2VW(Performed 07/03/2022) Performed for Other chest pain * CARDIAC RHYTHM STRIP ORDER(Performed 06/05/2022) * GROSS + MICRO EXAM (ILL)(Performed 06/04/2022) Performed for Gastroesophageal reflux disease, unspecified whether esophagitis present, Status postbariatric surgery * ND EGD FLEX TRANSORAL W BX SNGL OR [...] ORDERABLES * EKG 12-LEAD (07/03/2022 6:37 PM CLOCK AND WATCH HANDS PAINTER) Only the most recent of2 resultswithin the time period is included. Ventricular Rate 75 BPM [facility] Atrial Rate 75 BPM [facility] P-R Interval 164 ms [facility] QRS Duration ms 86 ms [facility] Q-T Interval ms 380 ms [facility] QTC Calculation (Bezet) 424 ms [facility] Calculated P [place] 29 degrees [facility] Calculated R [place] 14 degrees [facility] Calculated T [place] 28 degrees [facility] Interpretation EKG Normal sinus rhythm Normal ECG No previous ECGs available Confirmed by SAÚL HENDERSON MD ([id number]) on 07/05/2022 3:15:08 PM [facility] 07/03/2022 6:37 PM CLOCK AND WATCH HANDS PAINTER 07/05/2022 3:15 PM CLOCK AND WATCH HANDS PAINTER Chastity Almita Deng PA-C ECG ORDERABLES [facility] * XR CHEST PA AND LATERAL (07/03/2022 4:21 PM CLOCK AND WATCH HANDS PAINTER) Only the most recent of2 resultswithin the time period is included. Anatomical Region Laterality Modality Chest Radiographic Chanda ging 07/03/2022 4:30 PM CLOCK AND WATCH HANDS PAINTER Impressions 07/03/2022 4:30 PM CLOCK AND WATCH HANDS PAINTER IMPRESSION: No acute cardiopulmonary findings. > Interpreting Provider: Tram Rodríguez MD on 07/03/2022 4:30 PM Narrative 07/03/2022 4:30 PM CLOCK AND WATCH HANDS PAINTER PROCEDURE(s): XR CHEST 2VW; DATE AND TIME OF EXAM(s): 07/03/2022 4:22 PM; LOCATION: [facility] INDICATION(s): R07.89: Other chest pain. COMPARISON(s): None available. FINDINGS: The cardiomediastinal silhouette is normal. The pulmonary vasculature is unremarkable. The lungs are clear. There is no pleural effusion. There is no pneumothorax. The osseous structures are grossly unremarkable. Procedure Note Tram Rodríguez MD - 07/03/2022 PROCEDURE(s): XR CHEST 2VW; DATE AND TIME OF EXAM(s): 07/03/2022 4:22PM; LOCATION: [facility] INDICATION(s): R07.89: Other chest pain. COMPARISON(s): None available. FINDINGS: The cardiomediastinal silhouette is normal. The pulmonary vasculature is unremarkable. The lungs are clear. There is no pleural effusion. There is no pneumothorax. The osseous structures are grossly unremarkable. IMPRESSION: No acute cardiopulmonary findings. > Interpreting Provider: Tram Rodríguez MD on 07/03/2022 4:30 PM Radha Lara RUBY ON RAILS CONSULTANT-CASTER HELPER DIAGNOSTIC IMAGIN G ORDERABLES * CARDIAC RHYTHM STRIP ORDER (06/05/2022 12:47 PM CLOCK AND WATCH HANDS PAINTER) Narrative 06/05/2022 12:47 PM CLOCK AND WATCH HANDS PAINTER Ordered by an unspecified provider. Scanned Document CARDIAC SERVICES ORD ERABLES * GROSS + MICRO EXAM (ILL) (06/04/2022 11:12 AM CLOCK AND WATCH HANDS PAINTER) Case Report Surgical Pathology Report ? Case: [id number] ? Authorizing Provider: ??Irma Elizabeth MD ??Collected: ? 06/04/2022 11:12 AM ? Ordering Location: ? [facility] ?Received: ?06/05/2022 12:27 PM ? Pathologist: ? Jack Hernández MD ? Specimen: ?Antrum Biopsy, Antrum biopsy R/O H Pylori ? 06/06/2022 9:11 AM CLOCK AND WATCH HANDS PAINTER [facility] Final Diagnosis Gastric biopsies, antrum: Mild chronic gastritis, H&E sections negative for Helicobacter (see comment). Comment: Helicobacter pylori stain is pending results will follow in an addendum. 06/06/2022 9:[address] [facility] Microscopic Description and Comment Microscopic examination is performed and substantiates the above diagnosis. 06/06/2022 9:[address] [facility] Gross Description The requisition and specimen(s) are identified with the patient's name (Jazmyn San), MRN, and . Received in formalin, specimen antrum biopsy R/O H pylori , are 2 malhotra-pink tissues, 0.2 x 0.2 x 0.2 cm and 0.4 x 0.3 x 0.3 cm. The specimen is submitted in toto in cassette A1. AW 06/06/2022 9:[address] [facility] Disclaimer The performance characteristics of all immunohistochemical and indirect immunofluorescence stains (if any) cited in this report were determined by the Histopathology Laboratory of [facility]. Some of these tests were developed by [...] H&E slides and special stains prepared at [facility], [place]. [address] (CLIA# [id number]) unless otherwise specified. This case was interpreted by the [facility] Department of Pathology. When applicable, select reference laboratory testing is performed at the [facility], [address] [place] [id number]. 06/06/2022 9:[address] [facility] Embedded Images 06/06/2022 9:[address] [facility] Pathology/Cytology GASTRIC ANTRAL BIOPSY SPECIMEN / Unknown 06/04/2022 11:12 AM CLOCK AND WATCH HANDS PAINTER 06/05/2022 12:27 PM CLOCK AND WATCH HANDS PAINTER Comment:Pre-op diagnosis: Gastroesophageal reflux disease, unspecified whether esophagitis present [K21.9] Status post bariatric surgery [Z98.84] Irma Elizabeth MD LAB - PATHOLOGY/ CYTOLOGY ORDERABLES [facility] [address] * CT LUMBAR SPINE WO CONTRAST (04/20/2022 3:02 PM CDT) Anatomical Region Laterality Modality Spine Computed Tomogra phy 04/20/2022 3:01 PM CDT Impressions 04/20/2022 9:25 PM CDT IMPRESSION: 1.No evidence of acute fracture in the lumbar spine. 2.Diffuse disc bulge at L3-L4, L4-L5 and L5-S1, without central canal or neuroforaminal stenosis. Report dictated by Chas Vega MD (president & ceo) I, Syed Cassidy MD have personally reviewed [...] stenosis. Report dictated by Chas Vega MD (president & ceo) I, Syed Cassidy MD have personally reviewed and interpreted this examination/study. > Interpreting Provider: Syed Cassidy MD on 04/20/2022 9:25 PM Sanjuanita Mix RUBY ON RAILS CONSULTANT-CASTER HELPER CT ORDERABLES * (ABNORMAL) URINALYSIS W/MICROSCOPIC NO CULTURE (04/20/2022 1:22 PM CDT) Color UA Yellow Straw, Yellow 04/20/2022 1:33 PM CDT [facility] Clarity UA Slt Cloudy(A) Clear 04/20/2022 1:33 PM CDT [facility] Specific [place] UA 1.021 1.005 - 1.030 04/20/2022 1:33 PM [facility] pH UA 5.0 5.0 - 8.0 pH 04/20/2022 1:33 PM [facility] Protein UA Negative Negative 04/20/2022 1:33 PM [facility] Glucose UA Negative Negative 04/20/2022 1:33 PM [facility] Ketone UA Negative Negative 04/20/2022 1:33 PM [facility] Bilirubin UA Negative Negative 04/20/2022 1:33 PM [facility] Blood UA 2+(A) Negative 04/20/2022 1:33 PM [facility] Nitrite UA Negative Negative 04/20/2022 1:33 PM [facility] Leukocyte Esterase Negative Negative 04/20/2022 1:33 PM [facility] Urobilinogen UA Negative Negative mg/dL 04/20/2022 1:33 PM [facility] RBC UA 3-5 None Seen, 0-2, 3-5 /HPF 04/20/2022 1:33 PM [facility] WBC UA 0-5 None Seen, 0-5 /HPF 04/20/2022 1:33 PM [facility] Bacteria UA Trace(A) None /HPF 04/20/2022 1:33 PM [facility] Squamous Epithelial Cells UA 0-2 None Seen, 0-2, 3-5 /HPF 04/20/2022 1:33 PM [facility] Mucus UA 1+ /LPF 04/20/2022 1:33 PM [facility] Hyaline Casts UA 0-2 None Seen, 0-2 /LPF 04/20/2022 1:33 PM [facility] Urine URINE SPECIMEN OBTAINED BY CLEAN CATCH PROCEDURE / Unknown Collection / Unknown 04/20/2022 1:22 PM CDT 04/20/2022 1:25 PM [facility] - 04/20/2022 1:33 PM CDT Sanjuanita Mix RUBY ON RAILS CONSULTANT-CASTER HELPER LAB - URINALYS IS ORDERABLES [facility] [address] [place] [id number] [phone] * CBC W AUTO DIFFERENTIAL (04/20/2022 1:22 PM [facility]) Only the most recent of9 resultswithin the time period is included. WBC 7.3 3.5 - 10.5 10? 3 /uL 04/20/2022 1:29 PM [facility] RBC 4.68 3.80 - 5.20 10? 6 /uL 04/20/2022 1:29 PM [facility] Hemoglobin 13.9 12.0 - 15.6 g/dL 04/20/2022 1:29 PM [facility] Hematocrit 41.7 35.0 - 45.0 % 04/20/2022 1:29 PM [facility] MCV 89.1 80.7 - 98.3 fL 04/20/2022 1:29 PM [facility] MCH 29.7 26.7 - 34.0 pg 04/20/2022 1:29 PM [facility] MCHC 33.3 30.8 - 35.9 g/dL 04/20/2022 1:29 PM [facility] Platelet Count 317 150 - 400 10? 3 /uL 04/20/2022 1:29 PM [facility] RDW-SD 42.5 36.0 - 50.0 fL 04/20/2022 1:29 PM [facility] RDW-CV 13.0 11.2 - 14.8 % 04/20/2022 1:29 PM [facility] MPV 9.4 9.4 - 12.9 fL 04/20/2022 1:29 PM [facility] nRBC Absolute 0.00 0 10? 3 /uL 04/20/2022 1:29 PM [facility] nRBC Auto 0.0 0 /100 WBC 04/20/2022 1:29 PM [facility] Neutrophils % 69.0 35.0 - 70.0 % 04/20/2022 1:29 PM [facility] Lymphocytes % 22.5 20.0 - 43.0 % 04/20/2022 1:29 PM [facility] Monocytes % 6.2 5.0 - 13.0 % 04/20/2022 1:29 PM CDT [facility] Eosinophils % 1.5 0.0 - 6.0 % 04/20/2022 1:29 PM CDT [facility] Basophil % 0.5 0.0 - 2.0 % 04/20/2022 1:29 PM CDT [facility] Neutrophils Absolute 5.04 1.60 - 7.00 10? 3 /uL 04/20/2022 1:29 PM CDT [facility] Lymphocyte Absolute 1.64 1.10 - 3.90 10? 3 /uL 04/20/2022 1:29 PM CDT [facility] Monocytes Absolute 0.45 0.26 - 1.07 10? 3 /uL 04/20/2022 1:29 PM T [facility] Eosinophils Absolute 0.11 0.00 - 0.47 10? 3 /uL 04/20/2022 1:29 PM CDT [facility] Basophils Absolute 0.04 0.00 - 0.08 10? 3 /uL 04/20/2022 1:29 PM CDT [facility] Immature Granulocytes % 0.3 0.0 - 1.0 % 04/20/2022 1:29 PM CDT [facility] Immature Granulocytes Absolute 0.02 04/20/2022 1:29 PM [facility] Blood BLOOD SPECIMEN / Unknown Venipuncture / Unknown 04/20/2022 1:22 PM CDT 04/20/2022 1:26 PM CDT Sanjuanita Mix RUBY ON RAILS CONSULTANT-CASTER HELPER LAB - HEMATOLO GY ORDERABLES [facility] [address] [place] [address], [facility] [phone] * (ABNORMAL) COMPREHENSIVE METABOLIC PANEL (04/20/2022 1:22 PM CDT) Only the most recent of3 resultswithin the time period is included. BUN 13 7 - 26 mg/dL 04/20/2022 1:55 PM CDT [facility] Creatinine 0.74 0.56 - 0.96 mg/dL 04/20/2022 1:55 PM [facility] Sodium 143 136 - 145 mmol/L 04/20/2022 1:55 PM [facility] Potassium 3.7 3.5 - 4.5 mmol/L 04/20/2022 1:55 PM [facility] Chloride 107 98 - 107 mmol/L 04/20/2022 1:55 PM [facility] CO2 28 22 - 29 mmol/L 04/20/2022 1:55 PM [facility] Glucose 128(H) 70 - 115 mg/dL 04/20/2022 1:55 PM [facility] Calcium 9.4 8.4 - 10.2 mg/dL 04/20/2022 1:55 PM [facility] Protein Total 7.5 6.0 - 8.3 g/dL 04/20/2022 1:55 PM [facility] Albumin 3.9 3.4 - 5.0 g/dL 04/20/2022 1:55 PM [facility] Bilirubin Total 0.3 0.2 - 1.2 mg/dL 04/20/2022 1:55 PM [facility] Alkaline Phosphatase 72 40 - 150 U/L 04/20/2022 1:55 PM [facility] ALT 32 5 - 55 U/L 04/20/2022 1:55 PM [facility] AST 24 5 - 34 U/L 04/20/2022 1:55 PM [facility] Anion Gap 12 8 - 18 04/20/2022 1:55 PM [facility] BUN/Creatinine Ratio 18 7 - 23 04/20/2022 1:55 PM [facility] Osmolality Calculated 298 270 - 300 mOsm/kg 04/20/2022 1:55 PM [facility] Albumin/Globulin Ratio 1.1 1.1 - 2.3 04/20/2022 1:55 PM [facility] eGFR by CKD-EPI >90 >=90 mL/min/1.7 3 m2 04/20/2022 1:55 PM [facility] Blood BLOOD SPECIMEN / Unknown Venipuncture / Unknown 04/20/2022 1:22 PM CDT 04/20/2022 1:26 PM CDT Snajuanita Mix RUBY ON RAILS CONSULTANT-CASTER HELPER LAB - CHEMISTR Y ORDERABLES Performing Organization Address [facility]/ZIP Co de Phone Number [facility] [address] [place] [address], [place] [phone] * HCG BETA BLOOD QUANTITATIVE (04/20/2022 1:22 PM CDT) [facility] Beta-hCG Total Quantitative <3 mIU/mL 04/20/2022 2:01 PM CDT [facility] Comment: This assay is cleared for [...] CDT 04/20/2022 1:26 PM CDT Sanjuanita Mix APRN-CASTER HELPER LAB - CHEMISTR Y ORDERABLES Performing Organization Address [facility] Co de Phone Number [address] [address], [place] [phone] * T4 FREE ICMA (01/31/2020 2:04 PM CDT) [facility] T4 Free 0.94 ng/dL [facility] ACCOUNT BILL Comment: Reference Range: >=20y: 0.82 - 1.77 Blood BLOOD SPECIMEN / Unknown 01/31/2020 2:04 PM CDT 01/31/2020 Narrative Resulting Agency Comment Lab Testing performed at: [email or web address] [address] [place] [address] ??[facility] [phone] Addie Jennings MD LAB - CHEMISTRY OR DERABLES [facility] ACCOUNT BILL [address] [place] [address] * TSH ICMA (01/31/2020 2:04 PM CDT) TSH ICMA 2.4 uU/mL [facility] ACCOUNT BILL Comment: Reference Range: Non- Adult 0.450-4.500 First Trimester 0.100-4.000 Second Trimester 0.200-4.000 Third Trimester 0.300-4.500 Blood BLOOD SPECIMEN / Unknown 01/31/2020 2:04 PM CDT 01/31/2020 Narrative Resulting Agency Comment Lab Testing performed at: [email or web address] [address] [place] [address] ??[facility] [phone] Addie Jennings MD LAB - CHEMISTRY OR DERABLES Performing Organization Address City/[facility] Co de Phone Number [facility] ACCOUNT BILL [address] [place] [address] * TSH (01/03/2019 1:40 PM CDT) Only the most recent of4 resultswithin the time period is included. TSH 1.7600 0.358 - 3.74 uIU/mL [facility] INSURANCE BILL Blood BLOOD SPECIMEN / Unknown 01/03/2019 1:40 PM CDT 01/03/2019 Narrative Resulting Agency Comment Lab Testing performed at: [address] ??[facility] [phone] Addie Jennings MD LAB - CHEMISTRY OR DERABLES Performing Organization Address City/[facility] Co de Phone Number [facility] INSURANCE BILL [address] [place] [address] * VITAMIN D 25-HYDROXY (12/28/2018 7:38 AM [...] Resulting Agency Comment Lab Testing performed at: [address] ??[facility] [phone] Lottie Verduzco RUBY ON RAILS CONSULTANT-CASTER HELPER LAB - CHEMI STRY ORDERABLES Performing Organization Address [facility] de Phone Number [facility] ACCOUNT BILL [address] [place] [address] * VITAMIN B12 FOLATE PANEL (12/28/2018 7:38 AM CDT) Only the most recent of2 resultswithin the time period is included. Vitamin B12 344 213 - 816 pg/mL [facility] ACCOUNT BILL Folate 11.0 7.0 - 31.4 ng/mL [facility] ACCOUNT BILL Comment:FASTING Blood BLOOD SPECIMEN / Unknown 12/28/2018 7:38 AM CDT 12/28/2018 Narrative Resulting Agency Comment Lab Testing performed at: [address] ??[facility] [phone] Lottie Verduzco RUBY ON RAILS CONSULTANT-CASTER HELPER LAB - CHEMI STRY ORDERABLES Performing Organization Address [facility] de Phone Number [facility] ACCOUNT BILL [address] [place] [address] * (ABNORMAL) LIPID PROFILE (12/28/2018 7:38 AM [...] Resulting Agency Comment Lab Testing performed at: [address] ??[facility] [phone] Lottie Verduzco RUBY ON RAILS CONSULTANT-CASTER HELPER LAB - CHEMI STRY ORDERABLES [facility] ACCOUNT BILL [address] [place] [address] * US SOFT TISSUE HEAD NECK (09/21/2018) Anatomical Region Laterality Modality Head Ultrasound 09/21/2018 Impressions 09/21/2018 THYROID ULTRASOUND ?? DATE: 09/21/2018 ?? BRICK BAKER: Dr. Jennings ?? 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, goiter [...] (ABNORMAL) THYROID PEROXIDASE ANTIBODY (06/25/2018 9:13 AM CLOCK AND WATCH HANDS PAINTER) Thyroid Peroxidase TPO Antibody >600(H) 0 - 34 IU/mL [facility] ACCOUNT BILL Blood BLOOD SPECIMEN / Unknown 06/25/2018 9:13 AM CLOCK AND WATCH HANDS PAINTER 06/25/2018 Narrative Resulting Agency Comment [facility] [address] ??[facility] [phone] Lottie Verduzco RUBY ON RAILS CONSULTANT-CASTER HELPER LAB - CHEMI STRY ORDERABLES [facility] ACCOUNT BILL [address] [place] [address] * T4 FREE (06/25/2018 9:13 AM CLOCK AND WATCH HANDS PAINTER) Only the most recent of2 resultswithin the time period is included. T4 Free 1.01 0.65 - 1.34 ng/dL [facility] ACCOUNT BILL Blood BLOOD SPECIMEN / Unknown 06/25/2018 9:13 AM CLOCK AND WATCH HANDS PAINTER 06/25/2018 Narrative Resulting Agency Comment [facility] [address] [facility] ??[facility] [phone] Lottie Verduzco APRN-CASTER HELPER LAB - CHEMI STRY ORDERABLES Performing Organization Address City/[facility]/ZIP Co de Phone Number [facility] ACCOUNT BILL [address] [place] [address] * (ABNORMAL) IRON + TIBC + FERRITIN (06/25/2018 9:12 AM CLOCK AND WATCH HANDS PAINTER) TIBC 361 250 - 450 ug/dL [facility] ACCOUNT BILL UIBC 314 131 - 425 ug/dL [facility] ACCOUNT BILL Iron 47 27 - 159 ug/dL [facility] ACCOUNT BILL Iron Saturation 13(L) 15 - 55 % [facility] ACCOUNT BILL Ferritin 9(L) 15 - 150 ng/mL [facility] ACCOUNT BILL Blood BLOOD SPECIMEN / Unknown 06/25/2018 9:12 AM CLOCK AND WATCH HANDS PAINTER 06/25/2018 Narrative Resulting Agency Comment [facility] [place] [address] ??[facility] [phone] Lottie Verduzco RUBY ON RAILS CONSULTANT-CASTER HELPER LAB - CHEMI STRY ORDERABLES [facility] ACCOUNT BILL [address] [place] [address] * IMAGING RADIOLOGY XRAY RESULTS ORDER (06/18/2018) Only the most recent of3 resultswithin the time period is included. Anatomical Region Laterality Modality Other Scanned Document IMAGING * US BREAST RIGHT LTD (05/07/2018 10:11 AM CDT) Anatomical Region Laterality Modality Breast Right Ultrasound 05/07/2018 9:36 AM CDT Addenda Addendum by Mellisa Drake MD on 06/04/2018 11:19 AM CLOCK AND WATCH HANDS PAINTER Previous mammograms from [facility] on 04/10/2016 and 03/27/2016 are now available [...] participate in the care of your patient. [facility] utilizes [employer] as a reminder system to notify patients [...] utilized. PRIOR: Previous mammogram was performed at [facility]. This was not available for [...] utilized. PRIOR: Previous mammogram was performed at [facility]. This was not available for [...] in the care of your patient. [facility] utilizes [employer] as a reminder system to notify patients of their next recommended mammogram. Reading Radiologist: Mellisa Drake MD on 05/07/2018 at 10:53 AM Mellisa Drake MD US ORDERABLES * ALIZE DIAG DIRECT DIG IMAGE BILATERAL [id number] (05/07/2018 9:24 AM CDT) Anatomical Region Laterality Modality Breast Bilateral Mammography 05/07/2018 9:36 AM CDT Addenda Addendum by Mellisa Drake MD on 06/04/2018 11:19 AM CLOCK AND WATCH HANDS PAINTER Previous mammograms from [facility] on 04/10/2016 and 03/27/2016 are now available [...] of your patient. [facility] utilizes [employer] as a reminder system to notify patients [...] utilized. PRIOR: Previous mammogram was performed at [facility]. This was not available for [...] utilized. PRIOR: Previous mammogram was performed at [facility]. This was not available for [...] participate in the care of your patient. [facility] Care utilizes [employer] as a reminder system to notify patients [...] BLOOD ??385 ?mg/dL ?240-450 SATURATION % BLOOD ([facility]) ? 5 ?% ?20-50 ?L Blood BLOOD SPECIMEN / Unknown 10/27/2017 1:21 PM CDT 10/27/2017 Narrative Resulting Agency Comment [facility] [address] [place] [address] ??[facility] [phone] Maurice Overton MD LAB - CHEMISTRY MEL MARTINES [facility] ACCOUNT BILL [address] [place] [address] * GROSS + MICRO EXAM (04/05/2010 5:00 [...] 350 grams. Cassettes A and B ?? Etcher Apprentice Photoengraving sections of the placental disc. Cassette C ?? Etcher Apprentice Photoengraving sections of umbilical cord and membranes. [facility] Microscopic Exam ? Microscopic examination reveals a [...] membranes with ?no pathologic changes SS/na GM Loan Underwriter ? na Pathologist ?Nahomi Parnell MD [place]. ?04/08/2010 1527 <1> CPT code ? 24626 MISCELLANEOUS SAMPLES / Unknown 04/05/2010 5:00 AM [...] DO LAB - BLOOD GASES OR DERABLES [facility] [address] [place] [address] * (ABNORMAL) BLOOD GASES CORD VENOUS (04/05/2010 3:53 AM CDT) pH Cord Venous 7.289 7.18 - 7.33 [facility] pCO2 Cord Venous 62.0(H) 43 - 55 mm Hg [facility] pO2 Cord Venous 26.5 22 - 33 mm Hg [facility] Base Excess Cord Venous 0.8 -2.0 - 2.0 [facility] HCO3 Cord Venous 29.1 mmol/L [facility] CORD BLOOD SPECIMEN / Unknown 04/05/2010 3:53 AM CDT 04/05/2010 3:55 AM CDT Apple Sullivan DO LAB - BLOOD GASES OR DERABLES Performing Organization Address City/State/[facility] Co de Phone Number [facility] [address] [place] [address] * XR CHEST 1VW PORTABLE (04/03/2010 8:40 [...] included. ABO Rh O Pos SEE BELOW [facility] Comment: Weak D testing is not performed at [facility] Antibody Screen Neg [facility] Number of Units 4 [facility] Previous History Check Done Historical blood type on record, type verification complete. [facility] BLOOD SPECIMEN / Unknown 04/02/2010 5:36 AM CDT 04/02/2010 5:52 AM CDT Leyla Peres MD LAB - BLOOD BANK O RDERABLES Performing Organization Address [facility]/[place] [facility] de Phone Number [facility] [address] [place] [phone] * (ABNORMAL) PT PTT PANEL (04/02/2010 5:36 AM CDT) Only the most recent of4 resultswithin the time period is included. PT 9.3(L) 9.4 - 11.4 seconds [facility] INR 0.88 SEE BELOW [facility] Comment: Conventional anticoagulation ?? 2.0-3.0 Intensive anticoagulation ?? 2.5-3.5 PTT 26.0 24.0 - 33.0 seconds [facility] BLOOD SPECIMEN / Unknown 04/02/2010 5:36 AM CDT 04/02/2010 5:50 AM CDT Amari Huston Jr., MD LAB - COA CHEPELATION ORDERABLES Performing Organization Address [facility] de Phone Number [facility] [address] [place] [phone] * FIBRINOGEN ACTIVITY (04/02/2010 5:36 AM CDT) Only the most recent of5 resultswithin the time period is included. Fibrinogen 342 150 - 450 mg/dl [facility] BLOOD SPECIMEN / Unknown 04/02/2010 5:36 AM CDT 04/02/2010 5:50 AM CDT Amari Huston Jr., MD LAB - COA CHEPELATION ORDERABLES Performing Organization Address [facility] de Phone Number [facility] [address] [place] [phone] * MRI PELVIS NON CONTRAST (04/01/2010 9:30 [...] Region Laterality Modality Other Buzz Doe MD [facility] ORDERABLES * (ABNORMAL) URINALYSIS ROUTINE AUTO (03/30/2010 3:00 PM CDT) Source Clean Catch [facility] Color UA Yellow [facility] Character UA Clear [facility] Glucose UA NEGATIVE NEGATIVE mg/dl [facility] Bilirubin UA NEGATIVE NEGATIVE [facility] Ketone UA 40(H) NEGATIVE mg/dl [facility] Specific [place] UA >=1.030(H) 1.003 - 1.030 [facility] Blood UA LARGE(H) NEGATIVE [facility] pH UA 5.5 5.0 - 9.0 [facility] Protein UA NEGATIVE NEGATIVE-TR VICKEY mg/dl [facility] Urobilinogen UA 0.2 0.2 - 1.0 Kendrick Units/dl [facility] Nitrite UA NEGATIVE NEGATIVE [facility] Leukocyte UA NEGATIVE NEGATIVE [facility] WBC UA None Seen 0 - 2 HPF [facility] RBC UA 1-3 None Seen HPF [facility] Epithelial Cell UA 1-2 None Seen HPF [facility] URINE SPECIMEN OBTAINED BY CLEAN CATCH PROCEDURE / Unknown 03/30/2010 3:00 PM CDT 03/30/2010 3:28 PM CDT Yoselin Rudd MD LAB - URINALYSIS OR DERABLES Performing Organization Address [facility] Co de Phone Number [facility] [address] [place] [phone] * CHLAMYDIA + GC DNA PROBE AMPLIFIED (03/30/2010 3:00 PM CDT) Chlamydia trachomatis Amplified Probe NEGATIVE NEGATIVE [facility] GC Amplified Probe NEGATIVE NEGATIVE [facility] Comment Amplified Probe [facility] Comment: ? Results based on detection/no detection of ribosomal ? RNA by amplified method. PART OF UTERINE CERVIX / Unknown 03/30/2010 3:00 PM CDT 03/30/2010 3:42 PM CDT Yoselin Rudd MD LAB - MICROBIOLOGY ORDERABLES Performing Organization Address [facility] Co de Phone Number [facility] [address] [place] [address] * CULTURE URINE (03/30/2010 3:00 PM CDT) Report [facility] Comment: Final - CULTURE <10,000 colonies/ml Mixed gram positive abram. Org 1 ?<10,000 colonies/ml ?gram positive cocci ?morphologically identical to ?culture done ??03/30/10 ?(Group B beta strep) ? URINE SPECIMEN OBTAINED BY CLEAN CATCH PROCEDURE / Unknown 03/30/2010 3:00 PM CDT 03/30/2010 3:42 PM CDT Yoselin Rudd MD LAB - MICROBIOLOGY ORDERABLES [facility] [address] [place] [address] * CULTURE STREP B (03/30/2010 3:00 PM CDT) Report [facility] Comment: Final - CULTURE [...] Yoselin Rudd MD LAB - MICROBIOLOGY ORDERABLES [facility] [address] [place] [address] * PTT (03/30/2010 3:00 PM CDT) PTT 26.4 24.0 - 33.0 seconds [facility] BLOOD SPECIMEN / Unknown 03/30/2010 3:00 PM CDT 03/30/2010 5:48 PM CDT Yvonne Pickard MD LAB - COAGULATION OR DERABLES Performing Organization Address [facility] Co de Phone Number [facility] [address] [place] [address] * (ABNORMAL) PT-INR (03/30/2010 3:00 PM CDT) PT 9.3(L) 9.4 - 11.4 seconds [facility] INR 0.88 SEE BELOW [facility] Comment: Conventional anticoagulation ?? 2.0-3.0 Intensive anticoagulation ?? 2.5-3.5 BLOOD SPECIMEN / Unknown 03/30/2010 3:00 PM CDT 03/30/2010 3:35 PM CDT Yoselin Rudd MD LAB - COAGULATION O RDERABLES Performing Organization Address [facility] Co de Phone Number [facility] [address] [place] [address] * DRUG SCREEN TRIAGE PANEL (03/30/2010 3:00 PM CDT) Phencyclidine Screen Urine Negative Negative ng/ml [facility] Benzodiazepines Screen Urine Negative Negative ng/ml [facility] Cocaine Screen Urine Negative Negative ng/ml [facility] Amphetamines Screen Urine Negative Negative ng/ml [facility] Cannabinoids Screen Urine Negative Negative ng/ml [facility] Opiate Screen Urine Negative Negative ng/ml [facility] Barbiturates Screen Urine Negative Negative ng/ml [facility] URINE / Unknown 03/30/2010 3 :00 PM CDT 03/30/2010 3:29 PM CDT Yoselin Rudd MD LAB - URINE [employer] RY ORDERABLES Performing Organization Address [facility] Co de Phone Number [facility] [address] [place] [phone] Care Teams Coordinator Of Rehabilitation Services Relationship Specialty Start Date End Date Thang Heck MD [address] [place] [address] [facility] - General 06/10/22 Addie Jennings MD [address] [facility] [address] [place] [id number] [facility] 01/31/20
--- OUTSIDE RECORDS SUMMARY | 2024-08-05 10:43 | XMS_ITS | Data Portability ---
Author Organization [facility] [place] Address [address] [place] [address] [place] [address] Assessment Encounter Date Assessment Date Assessment LastModified [...] recorded. Lab urinalysis, dipstick 2021 022 [email or web address] [place], [address], [place], [address], 17:05:21 Referral None recorded. Procedures None recorded. Surgeries None recorded. Imaging MAMMO, diagnostic, digital, bilateral [address], [address] [place] [address], [address], 16:08:45 US, breast, unilateral [address], [address] [place] [address], [address], 16:08:45 US, pelvis 2021 022 [email or web address] [place], [address], [place], [address], 2 12:20:09 US, transvagina l 2021 022 [facility], [address], [address], [place], [address], 2 12:28:53 US, breast, bilateral, w/ axilla 2021 022 [facility], [facility] [address], [place], [address], 3 09:11:00 Medication Orders None recorded. Patient TargetsNo targets recorded. Patient InstructionsNo instructions recorded. Reason for Referral None Reported. Results Created Date Observation Date Name Description Value Unit Range Abnormal Flag Note LastModifiedBy Organization Detail LastModifiedTime 08/23/19 22 08/23/2021 CT/GC AND TRICH OMONA S VAGIN JOSSELYN (RRNA ), SWAB chlamydia trachomatis, PCR Negati ve negati ve Not Available [facility] (Lab) [address], [place], [address], 09/02/2021 16:08:28 08/23/19 22 08/23/2021 CT/GC AND TRICH OMONA S VAGIN JOSSELYN (RRNA ), SWAB neisseria gonorrhoeae, PCR Negati ve negati ve Not Available [facility] (Lab) [address], [place], [address], 09/02/2021 16:08:28 08/23/19 22 08/23/2021 CT/GC AND TRICH OMONA S VAGIN JOSSELYN (RRNA ), SWAB trichomonas vaginalis ribosomal RNA (rrna) Negati ve negati ve Not Available [facility] (Lab) [address], [place], [address], 09/02/2021 16:08:28 08/23/19 22 08/23/2021 MOBIL UNCUS MULIE RIS/C URTIS MICHELLE, RT-PC R, ONE SWAB nm bkr mobiluncus mulieris and mobiluncus curtisii by RT-PCR Negati ve Swab- 1 Vag Cerv Not Available [facility] (Lab) [address] [place], [address], 09/02/2021 16:08:28 08/23/19 22 08/23/2021 CAIN DA VAGIN ITIS PANEL RT-PC R, ONESW AB solomon albicans PCR Negati ve Swab- 1 Vag Cerv Not Available [facility] (Lab) [address] [facility], [place], [address], 09/02/2021 16:08:29 08/23/19 22 08/23/2021 CAIN DA VAGIN ITIS PANEL RT-PC R, ONESW AB solomon tropicalis PCR Negati ve Swab- 1 Vag Cerv Not Available [facility] (Lab) [address] [facility], [place], [address], 09/02/2021 16:08:29 08/23/19 22 08/23/2021 CAIN DA VAGIN ITIS PANEL RT-PC R, ONESW AB solomon parapsilosis PCR Negati ve Swab- 1 Vag Cerv Not Available [facility] (Lab) [address] [place], [address], 09/02/2021 16:08:29 08/23/19 22 08/23/2021 CAIN DA VAGIN ITIS PANEL RT-PC R, ONESW AB solomon glabrata PCR Negati ve Swab- 1 Vag Cerv Not Available [facility] (Lab) [address] [place], [address], 09/02/2021 16:08:29 08/23/19 22 08/23/2021 CAIN DA SYLVIE I BY RT-PC R solomon krusei by RT-PCR Negati ve Swab- 1 Vag Cerv Not Available [facility] (Lab) [address] [place], [address], 09/02/2021 16:08:29 08/23/19 22 08/23/2021 UROGE NITAL MYCOP LASMA /UREA PLASM A PANEL RT-PC R, ONESW AB nm bkr mycoplasma genitalium by RT-PCR Negati ve Swab- 1 Vag Cerv Not Available [facility] (Lab) [address] [facility], [place], [address], 09/02/2021 16:08:30 08/23/19 22 08/23/2021 UROGE NITAL MYCOP LASMA /UREA PLASM A PANEL RT-PC R, ONESW AB nm bkr mycoplasma hominis by RT-PCR Negati ve Swab- 1 Vag Cerv Not Available [facility] (Lab) [address] [place], [address], 09/02/2021 16:08:30 08/23/19 22 08/23/2021 UROGE NITAL MYCOP LASMA /UREA PLASM A PANEL RT-PC R, ONESW AB nm bkr ureaplasma urealyticum by RT-PCR Negati ve Swab- 1 Vag Cerv Not Available [facility] (Lab) [address] [facility], [place], [address], 09/02/2021 16:08:30 08/23/19 22 08/23/2021 BACTE RIAL VAGIN OSIS PANEL RT-PC R, ONESW AB gardnerella vaginalis PCR Negati ve Swab- 1 Vag Cerv Not Available [facility] (Lab) [address] [place], [address], 09/02/2021 16:08:30 08/23/19 22 08/23/2021 BACTE RIAL VAGIN OSIS PANEL RT-PC R, ONESW AB atopobium vaginae PCR Negati ve Swab- 1 Vag Cerv Not Available [facility] (Lab) [address] [place], [address], 09/02/2021 16:08:30 08/23/19 22 08/23/2021 BACTE RIAL VAGIN OSIS PANEL RT-PC R, ONESW AB bacterial vaginosis associated bacteria 2 (bvab2) Negati ve Swab- 1 Vag Cerv Not Available [facility] (Lab) [address] [place], [address], 09/02/2021 16:08:30 08/23/19 22 08/23/2021 BACTE RIAL VAGIN OSIS PANEL RT-PC R, ONESW AB megasphaera species (type 1 and type 2) PCR Negati ve (Type1 ,Type2 ) Swab- 1 Vag Cerv Type1 :Nega tive Type2 :Nega tive. Not Available [facility] (Lab) [address] [place], [address], 09/02/2021 16:08:30 08/23/19 22 08/23/2021 BACTE RIAL VAGIN OSIS PANEL RT-PC R, ONESW AB lactobacillu s (bvpanel) PCR See Commen t Swab- 1 Vag Cerv L.cri spatu s: Negat ellen L.carolyn senii : Negat ellen L.gas seri : Negat ellen L.ine rs : Posit ellen. Not Available [facility] (Lab) [address] [place], [address], 09/02/2021 16:08:30 09/05/19 22 09/04/2021 URINA LYSIS , WITH MICRO SCOPI C, REFLE X CULTU RE color, urine Yellow colorl ess, light yellow , yellow , dark yellow , straw Not Available [facility] (Lab) [address] [place], [address], 09/05/2021 01:44:58 09/05/19 22 09/04/2021 URINA LYSIS , WITH MICRO SCOPI C, REFLE X CULTU RE clarity, urine Cloudy Not Available [facility] (Lab) [address] [place], [address], 09/05/2021 01:44:58 09/05/19 22 09/04/2021 URINA LYSIS , WITH MICRO SCOPI C, REFLE X CULTU RE glucose, urine Negati ve mg/dL negati ve Not Available [facility] (Lab) [address] [place], [address], 09/05/2021 01:44:58 09/05/19 22 09/04/2021 URINA LYSIS , WITH MICRO SCOPI C, REFLE X CULTU RE bilirubin, urine Negati ve mg/dL negati ve Not Available [facility] (Lab) [address] [facility], [place], [address], 09/05/2021 01:44:58 09/05/19 22 09/04/2021 URINA LYSIS , WITH MICRO SCOPI C, REFLE X CULTU RE ketones, urine Negati ve mg/dL negati ve Not Available [facility] (Lab) [address] [facility], [place], [address], 09/05/2021 01:44:58 09/05/19 22 09/04/2021 URINA LYSIS , WITH MICRO SCOPI C, REFLE X CULTU RE pH, urine 6.0 . 5.0-9. 0 Not Available [facility] (Lab) [address] [facility], [place], [address], 09/05/2021 01:44:58 09/05/19 22 09/04/2021 URINA LYSIS , WITH MICRO SCOPI C, REFLE X CULTU RE specific gravity, urine 1.023 . 1.001- 1.035 Not Available [facility] (Lab) [address] [place], [address], 09/05/2021 01:44:58 09/05/19 22 09/04/2021 URINA LYSIS , WITH MICRO SCOPI C, REFLE X CULTU RE blood, urine Negati ve negati ve Not Available [facility] (Lab) [address] [place], [address], 09/05/2021 01:44:58 09/05/19 22 09/04/2021 URINA LYSIS , WITH MICRO SCOPI C, REFLE X CULTU RE protein, UA Negati ve mg/dL negati ve Not Available [facility] (Lab) [address] [place], [address], 09/05/2021 01:44:58 09/05/19 22 09/04/2021 URINA LYSIS , WITH MICRO SCOPI C, REFLE X CULTU RE urobilinogen , urine <2.0 mg/dL <2.0 Not Available [facility] (Lab) [address] [facility], [place], [address], 09/05/2021 01:44:58 09/05/19 22 09/04/2021 URINA LYSIS , WITH MICRO SCOPI C, REFLE X CULTU RE nitrite, urine Negati ve negati ve Not Available [facility] (Lab) [address] [facility], [place], [address], 09/05/2021 01:44:58 09/05/19 22 09/04/2021 URINA LYSIS , WITH MICRO SCOPI C, REFLE X CULTU RE leukocyte esterase, urine Negati ve florencia/u L negati ve Not Available [facility] (Lab) [address] [facility], [place], [address], 09/05/2021 01:44:58 09/05/19 22 09/04/2021 URINA LYSIS , WITH MICRO SCOPI C, REFLE X CULTU RE WBC, urine 0-5 /hpf none, 0-5 Not Available [facility] (Lab) [address] [place], [address], 09/05/2021 01:44:58 09/05/19 22 09/04/2021 URINA LYSIS , WITH MICRO SCOPI C, REFLE X CULTU RE RBC, urine 0-2 /hpf none, 0-2 Not Available [facility] (Lab) [address] [place], [address], 09/05/2021 01:44:58 09/05/19 22 09/04/2021 URINA LYSIS , WITH MICRO SCOPI C, REFLE X CULTU RE bacteria, urine Trace /hpf none abnormal Not Available [facility] (Lab) [address] [place], [address], 09/05/2021 01:44:58 09/05/19 22 09/04/2021 URINA LYSIS , WITH MICRO SCOPI C, REFLE X CULTU RE squamous epithelial cells, urine Many /hpf none abnormal Not Available [facility] (Lab) [address] [facility], [place], [address], 09/05/2021 01:44:58 09/05/19 22 09/04/2021 URINA LYSIS , WITH MICRO SCOPI C, REFLE X CULTU RE mucus, urine Modera te /hpf none, trace, few abnormal Not Available [facility] (Lab) [address] [facility], [place], [address], 09/05/2021 01:44:58 09/05/19 22 09/04/2021 URINA LYSIS , WITH MICRO SCOPI C, REFLE X CULTU RE amorphous crystal, urine Many /hpf none abnormal Not Available [facility] (Lab) [address] [facility], [place], [address], 09/05/2021 01:44:58 09/05/19 22 09/04/2021 URINA LYSIS , WITH MICRO SCOPI C, REFLE X CULTU RE calcium oxalate crystal, urine Many /hpf none abnormal Urine Cultu re not perfo rmed per refle x ancelmo col. Not Available [facility] (Lab) [address] [facility], [place], [address], 09/05/2021 01:44:58 09/11/19 22 09/10/2021 urina lysis , dipst ick Leukocytes neg Not Available Mukesh khan [address], [place], [address], 09/10/2021 17:05:08 09/11/19 22 09/10/2021 urina lysis , dipst ick Nitrite neg Not Available [address], [place], [address], 09/10/2021 17:05:08 09/11/19 22 09/10/2021 urina lysis , dipst ick Blood trace Not Available [place] [address], [place], [address], 09/10/2021 17:05:08 09/05/19 22 09/04/2021 US, pelvi s No observ ation record ed. [email or web address] [place] [address], [place], [address], 09/04/2021 12:28:43 09/05/19 22 09/04/2021 US, trans vagin al No observ ation record ed. [email or web address] [place] [address], [place], [address], 09/04/2021 12:28:53 09/05/19 22 09/04/2021 US, pelvi s No observ ation record ed. FRANK Briesyda [address], [place], [address], 10/01/2021 23:40:33 09/10/19 22 09/08/2021 CT, abdom en + pelvi s, w/ contr ast No observ ation record ed. [email or web address] [facility] (Radiology) [address] [facility] , [place], [address], 09/09/2021 20:20:14 09/11/19 22 09/10/2021 US, kidne y No observ ation record ed. [facility] [address], [place], [address], 09/10/2021 16:38:58 07/11/19 23 07/11/2022 US, kay selby, w/ axill a No observ ation record ed. [facility] [place] [address], [place], [address], 07/11/2022 15:18:08 Result Notes None recorded. Problems Name Problem SNOMED Code Status Onset Date Resolution Date Notes Provider Name and Address Organization Details Recorded Time Pregnanc y test negative 152133806 Completed 201411/08/2020 Encounte r for pregnanc y test, result negative ;Practic e ID: 0001 Rosa nichole [facility] 16:24:30 Human papillom avirus deoxyrib onucleic acid detected , high risk on cervical specimen 261420185 Completed 201511/08/2020 Cervical high risk HPV DNA test positive ;Practic e ID: 0001 Rosa Houston [facility] 16:24:24 Low grade squamous intraepi thelial lesion on cervical Papanico laou smear [id number] 105 Completed 201503/27/2021 Low grade intrepit h lesion cyto smr crvx (LGSIL); Practice ID: 0001 Ro Chris [facility] 11:26:[address] Concept Completed 201811/08/2020 Encntr for cytology supervisor exam (general ) (routine ) w/o abn findings ;Practic e ID: 0001 Rosa nichole [facility] 16:24:33 Clinical finding Completed 201811/08/2020 Other specifie d disorder s of breast;P ractice ID: 0001 Rosa nichole [facility] 16:24:13 Screenin g for malignan t neoplasm of cervix Completed 201411/15/2020 Encounte r for screenin g for malignan t neoplasm of cervix;R ecorded Elsewher e: No Locat ion: [facility] S ource: [employer] Attendant angel luis: N Practi ce ID: [id number] Tiago lable Time: 05:00:00 PM Ro nichole [facility] 16:55:10 Disorder of breast 78770698 Completed 201811/08/2020 Disorder of breast, unspecif ied;Maxwell rded Elsewher e: No [facility]: [employer] Att[employer] angel luis: N Practi ce ID: 0001 Tiago lable Time: 09:45:00 AM Rosa Houston [facility] 16:24:16 Finding of body mass index 431189083 Completed 201411/08/2020 Body mass index (BMI) 40.0-44. 9, adult;Re corded Elsewher e: No Locat ion: [facility] S ource: [employer] Att[employer] angel luis: N Practi ce ID: 0001 Tiago lable Time: 05:00:[address] [facility] 16:24:18 Syphilis test finding 325242786 Completed 201411/08/2020 Encntr screen for infectio ns w sexl mode of transmis s;Record ed Elsewher e: No Locat ion: [facility] S ource: [employer] Att[employer] angel luis: N Practi ce ID: 0001 Tiago lable Time: 05:00:[address] [facility] 16:24:36 Infectio n screenin g Completed 201411/08/2020 Encounte r for screenin g for oth infec/pa rastc diseases ;Recorde d Elsewher e: No Locat ion: [facility] S ource: [employer] Attendant angel luis: N Practi ce ID: 0001 Tiago lable Time: 05:00:00 PM Rosa [facility] 16:24:26 Genuine stress incontin ence 55565757 Completed 201411/08/2020 Stress incontin ence (female) (male);R ecorded Elsewher e: No Locat ion: [facility] S ource: [employer] Att[employer] angel luis: N Practi ce ID: 0001 Tiago lable Time: 05:00:00 PM Rosa [place] [facility], [facility] 16:24:21 Problem Notes None recorded. Procedures Surgical History Date Name Laterality Status Provider Name and Address Organization Details Recorded Time 1 Date of Last Pap Smear completed [facility] 11/20/2020 10:22:52 6 Tubal Ligation completed [facility] 11/20/2020 12:05:25 6 section completed [facility] 11/20/2020 12:05:51 5 Colposcopy completed [facility] 11/15/2020 16:57:09 2 section completed [facility] 11/20/2020 12:05:46 0 section completed [facility] 11/20/2020 12:05:33 8 section completed [facility] 11/20/2020 12:05:10 9 section completed [facility] 11/20/2020 12:05:01 Tubal Ligation completed [facility] 03/27/2021 11:35:40 Imaging Results Imaging Date Name Status LastModified by Organization Details LastModified Time 09/04/2021 US, pelvis completed elisabeth Sauer [address], [place], [address], 09/04/2021 12:28:43 09/04/2021 US, transvaginal completed elisabeth aldana [address], [place], [address], 09/04/2021 12:28:53 09/04/2021 US, pelvis completed [facility] [address], [place], [address], 10/01/2021 23:40:33 09/08/2021 CT, abdomen + pelvis, w/ contrast completed [email or web address] [place] [address] (Radiology) [address] [facility] , [place], [address], 09/09/2021 20:20:14 09/10/2021 US, kidney completed [facility] [address], [place], [address], 09/10/2021 16:38:58 07/11/2022 US, breast, bilateral, w/ axilla completed [facility] [place] [address] [facility], [place], [address], 07/11/2022 15:18:08 Procedure Notes None recorded. Medical Equipment None Reported. Allergies Allergen ID Allergen Name Allergen Category Reaction Reaction Severity Criticality Documentation Date Start Date Code Code System Note Provider Name and Address Organization Details Recorded Time 86531 Non-stero idal anti-infl ammatory agent (product) medicatio n Not available Not available Not available 06/22/2020 14534 005 SNOMED Comme nt: [facility]at [facility]; Not Available [facility] 0 14:24:36 Medications Name Sig Start [...] Quigley e: No Locat ion: [facility] Almita moran By: [email or web address] ndt Enco lesvia [...] Prescrib ed Elsewher e: Yes Loca tion: [facility] M odify By: dmrose E ncounter DateTime [...] Updated DateTime 03/27/2021 158.75 cm 46.1 kg/m2 250042.65 g Ro Chris [place] - [facility] 03/27/2021 11:35:16 Date Recorded Systolic blood pressure Diastolic blood pressure Provider Name and Address Organization Details Last Updated DateTime 03/27/2021 126 mm[Hg] 82 mm[Hg] Cherelle Monge, [facility] [address], [place], [address], [facility] 03/27/2021 13:35:08 Date Recorded Body height Provider Name an d Address Organization Details Last Updated DateTime 08/23/2021 158.75 cm Ro Chris [facility] 08/23/2021 16:36:10 Date Recorded Body mass index (BMI) Body weight Systolic blood pressure Diastolic blood pressure Provider Name and Address Organization Details Last Updated DateTime 08/23/2021 47.7 kg/m2 909524.26 g 120 mm[Hg] 76 mm[Hg] Cherelle Monge, [facility] [address], [place], [address], [facility] 08/23/2021 17:17:24 Date Recorded Body height Body mass index (BMI) Body weight Systolic blood pressure Diastolic blood pressure Provider Name and Address Organization Details Last Updated DateTime 09/10/2021 158.75 cm 47 kg/m2 841031.6 1 g 140 mm[Hg] 81 mm[Hg] Lizz Mooer [facility] 16:57:12 Date Recorded Body height Systolic blood pressure Diastolic blood pressure Provider Name and Address Organization Details Last Updated DateTime 07/03/2022 158.75 cm 130 mm[Hg] 80 mm[Hg] Gina Wood [facility] 07/03/2022 13:01:35 Social History Question Answer Notes LastModified by Organizat ion Details LastModified Time Tobacco Smoking Status Never Smoker Odilon nichole, [facility] 09/04/2021 11:16:24 Do You Have [...] Anxious, Or Unable To Sleep At Night)? [id number] Information not available 11/15/2020 Do You Use Any Illicit Or Recreational Drugs? No Information not available 11/15/2020 Do You Use Sunscreen Routinely? Yes Information not available 11/15/2020 Have You Used IV Drugs? No Information not available 03/27/2021 Sex: Unknown Functional Status Question Answer Note LastModified by iVilkaat ion Details LastModified Time Are you able [...] SNOMED-CT Code Diagnosis ICD10 Code Diagnosis Note [id number] Tobin Joshi MD [place] [address] [address] 11/08/2020 15:50:11 11/08/2020 16:51:03 Pain in pelvis 07941505 R10.2 This patient is a 35-year-ol d [...] already had some that was ineffectiv e. [id number] Karen Proctor [place] [address],[facility] [place] [address] 11/12/2020 09:35:10 11/12/2020 10:32:41 Pain in pelvis 07358403 R10.2 This patient is a 35-year-ol d [...] already had some that was ineffectiv e. [address] [facility] [address] [address] 11/20/2020 10:11:32 11/20/2020 11:10:58 Gynecologic examination 41468118 Z01.419 Take Calcium with Vitamin D 1200mg [...] Advise updated PCP [place]. 66179 ABI Wills[facility] [address] [address] 03/27/2021 11:22:25 03/27/2021 14:53:58 Mass of left breast [id number] 8303718 N64.4 Discussed exam today & imaging.Sh jovan [...] this patient? s visit, including available hand production consultant upon arrive, hugh e check and being asked a series of screening questions. All staff wore face coverings during this encounter, as well as provided additional cleaning and sanitizing of all surfaces, including countertop s, pens, chairs, door handles, light switches, etc, prior to and following the patient? s visit. [id number] Cherelle Monge [facility] [address],[place] [address] 08/23/2021 16:18:03 08/23/2021 17:25:27 Vaginal pain 68629187 R10.2 Today we agreed to update std/vag [...] this patient? s visit, including available hand production consultant upon arrive, temperatur e check and being asked a series of screening questions. All staff wore face coverings during this encounter, as well as provided additional cleaning and sanitizing of all surfaces, including countertop s, pens, chairs, door handles, light switches, etc, prior to and following the patient? s visit. [id number] Anna Michel [place] [address],[place] [address] 09/04/2021 11:16:09 09/04/2021 12:03:33 Pain in pelvis 81202750 R10.2 [id number] Jody Hameed MD [place] [address],[place] [address] 09/10/2021 16:41:21 09/23/2021 15:15:51 Urinary symptoms 544498791 R39.9 Pain in pelvis 48741558 R10.2 [id number] Norma Diaz [facility] [address],[place] [address] 07/03/2022 12:52:25 07/03/2022 15:02:31 Pain of breast 33702498 N64.4 Breast exam with no abnormal masses felt, tenderness in left breast from the 3 o'clock to 5 o'clock position.S he has had normal diagnostic mammogram last month - we do not have these records. Records requested. She has some minor irritation noted likely secondary to recently shaving. Avoid shaving until resolved.S he has an appointmen t scheduled [facility] breast [facility] next week - encouraged her [...] Patel Member ID Guarantor Name 03/27/2021 1 [facility] ON OR AFTER 01/03/21 (MEDICAID REPLACEMENT - HMO) [facility] [id number] [facility] 08/23/2021 1 [facility] - DOS ON OR AFTER 21 (MEDICAID REPLACEMENT - HMO) [facility] [id number] [facility] 09/04/2021 1 [facility] - DOS ON OR AFTER 21 (MEDICAID REPLACEMENT - HMO) [facility] [id number] [facility] 09/10/2021 1 [facility] - DOS ON OR AFTER 21 (MEDICAID REPLACEMENT - HMO) [facility] [id number] [facility] 07/03/2022 1 [facility] - DOS ON OR AFTER 21 (MEDICAID REPLACEMENT - HMO) [facility] [id number] [facility] Notes Date Note Type Note Provider Name [...] and it was completely WNL [facility] [address], [place], [address], [facility] 03/27/2021 13:46:02 08/23/2021 text/html Here today [...] heavy the first 1-2 days then progressively development associate with some dysmenorrhea which is not the same as the random vaginal pain that shoots through.She has had some vaginal d/c a few days last week which is new for her includig odor and irritated feeling. ABI Wills- [address], [place], [address], [facility] 08/23/2021 17:24:06 09/10/2021 text/html Anity is here fo r follow up US for pelvic pain. US 3 showed normal uterus, normal right ovary, and left ovary with a 2.5cm simple cyst. She had a CT 09/08 in [place] for RLQ pain that was noral and a renal US 09/10 that was normal. UA with trace of blood. She also feels like she is incompletely emptying unless she pushes for a couple months. She had a cysto a couple years ago for hematuria with Kenneth at [facility]. Jody Hameed MD [address], [place], [address], [facility] 09/23/2021 09:28:27 07/03/2022 text/html 37yo Presents [...] present.She does not drink any caffeineSees a presentation specialist for SOB, has felt chest pain in the past but none currentlyShe has an appointment next week to see a [facility] for [facility] management. [facility]ins [address], [place], [address], [facility] 07/03/2022 14:18:17 OBGyn Episode Ob Episode Information Episode Created Date Number of Fetuses Patient Bloodtype Patient rh Status Prepregnancy Weight lbs Domestic Partner Domestic Partner Phone Father Name Tube Buffer Status 11/09/19 21 1 CLOSED Fetus Data [...] Domestic Partner Domestic Partner Phone Father Name Tube Buffer Status 11/09/19 21 1 CLOSED Fetus Data [...] Domestic Partner Domestic Partner Phone Father Name Tube Buffer Status 11/09/19 21 1 CLOSED Fetus Data [...] Domestic Partner Domestic Partner Phone Father Name Tube Buffer Status 11/09/19 21 1 CLOSED Fetus Data [...] Domestic Partner Domestic Partner Phone Father Name Tube Buffer Status 11/09/19 21 1 CLOSED Fetus Data [...]
--- OUTSIDE RECORDS SUMMARY | 2024-08-05 10:43 | XMS_ITS | Clinical Summary ---
Author Organization [facility] Address [address] [place] [address] Phone Care Team Providers Care Brake Machine Operator Name Role Phone Chaparro Harris MD Primary Care Provider [phone] Allergies Active Allergy Reactions Criticality Noted Date [...] on file Legal Sex Female 5:58 AM SOIL FERTILITY EXTENSION SPECIALIST Gender Identity Not on file Sexual Orientation [...] cm (5' 4 ) 07/24/2022 12:56 PM SOIL FERTILITY EXTENSION SPECIALIST Body Mass Index 44.29 07/24/2022 12:56 PM SOIL FERTILITY EXTENSION SPECIALIST Plan of Treatment Upcoming Encounters Date Type Department Care Team (Late st Contact Info) Description 10/05/2024 3:45 PM CDT Office Visit [facility] Oncology and Hematology [facility] [address] [facility] [address] [place] [address] Codey Angeles MD [address] [facility] [address] [place] [address] Health Maintenance Due Date Last [...] OR WO CAD Routine 06/04/2022 2:53 PM SOIL FERTILITY EXTENSION SPECIALIST Mastodynia from Last 3 Months or Most Recently Relevant to Health Maintenance Results * MAMMO DIAG BILAT 3D IZZY W OR WO CAD (06/04/2022 2:53 PM SOIL FERTILITY EXTENSION SPECIALIST) Anatomical Region Laterality Modality Breast Bilateral Mammography 06/04/2022 2:53 PM SOIL FERTILITY EXTENSION SPECIALIST Impressions 06/04/2022 3:09 PM SOIL FERTILITY EXTENSION SPECIALIST IMPRESSION: No evidence of malignancy. RECOMMENDATIONS: Bilateral annual screening mammogram. OVERALL FINAL ASSESSMENT: BI-RADS CATEGORY 1: Negative DICTATION LOCATION: [facility] Narrative 06/04/2022 3:09 PM SOIL FERTILITY EXTENSION SPECIALIST MAMMOGRAPHY DIGITAL DIAGNOSTIC BILATERAL 3-D TOMOGRAPHY WITH [...] ASSESSMENT: BI-RADS CATEGORY 1: Negative DICTATION LOCATION: [facility] Arun Reina MD MAMMO ORDERABLES Final Result from Last 3 Months or Most Recently Relevant to Health Maintenance Insurance [facility] MEDICAID [facility] MEDICAID Care Teams Brake Machine Operator Relationship Specialty Start Date End Date Chaparro Harris MD [address] [place] [address] PCP - General Family Practice 02/27/23
--- OUTSIDE RECORDS SUMMARY | 2024-08-05 10:43 | XMS_ITS | Encounter Summary ---
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 Gender Identity Not on file Sexual Orientation Not on file documented as of this encounter Plan of Treatment Not on file documented as of this encounter Procedures Procedure Name Priority Date/Time Associated Diagnosis Comments SCAN - RADIOLOGY/IMAGING 08/02/2024 documented in this encounter Results * SCAN - RADIOLOGY/IMAGING (08/02/2024) Anatomical Region Laterality Modality Other us Provider Scanning Final Result documented in this encounter Visit Diagnoses Not on filedocumented in this encounter Care Teams Physician Office Specialist Relationship Specialty Start Date End Date Chaparro Harris MD [address] [place] [address] PCP - General Family Medicine 10/01/21 Jeff Umanzor MD [address] [place] [address] Referring Physician Obstetrics and Gynecology 08/10/23 documented as of this encounter
--- NOTE | 2024-08-05 12:14 | ED_ITS ---
HPI - Abdominal Pain General Chief Complaint: Abdominal Pain <Allyssa Butler PA-C - Last Filed: 08/06/24 14:45> Stated Complaint: abd. pain <Allyssa Butler PA-C - Last Filed: 08/06/24 14:45> Time Seen by Provider: 08/05/24 12:14 <Allyssa Butler PA-C - Last Filed: 08/06/24 14:45> Focused HPI: This is a 39 year old female that presents to the ER for abdominal pain. Ongoing over the last 2 days. Reports the pain is sharp in nature. Radiates to the back. Reports associated nausea. Reports some dysuria. Denies fever, vomiting, diarrhea. GENERAL: Well-appearing, well-nourished, and in no acute distress. HEAD: Normocephalic, atraumatic. CHEST: Clear to auscultation. ?No respiratory distress. HEART: Regular rate and rhythm.? NEURO: ?Alert and oriented x3. Patient screened in triage and initial orders placed.? ?Additional care and disposition to be based upon?diagnostic testing and treatment. <Allyssa Butler PA-C - Last Filed: 08/06/24 14:45> History of Present Illness HPI narrative: I agree with the above HPI <Chicho Maurer MD - Last Filed: 08/05/24 22:41> Related Data Allergies/Adverse Reactions: Allergies Allergy/AdvReac Type Severity Reaction Status Date / Time NSAIDS (Non-Steroidal AdvReac Mild Other Verified 08/05/24 10:33 Anti-Inflamma <Allyssa Butler PA-C - Last Filed: 08/06/24 14:45> Review of Systems 2 Review of Systems: All systems reviewed & are unremarkable except as noted in HPI and below <Chicho Maurer MD - Last Filed: 08/05/24 22:41> PMFSH Past Medical History Medical History: Medical History Anemia Anxiety Arthritis MAYES (dyspnea on exertion) GERD (gastroesophageal reflux disease) Vern's thyroiditis Hypothyroidism Mastalgia Menopausal symptoms Morbid obesity PCOS (polycystic ovarian syndrome) Screening mammogram for breast cancer <Allyssa Butler PA-C - Last Filed: 08/06/24 14:45> Surgical History Surgical History: Surgical History delivery delivered x5 H/O tubal ligation 2012 History of sleeve gastrectomy 2015 <Allyssa Butler PA-C - Last Filed: 08/06/24 14:45> Family History Family History: Family History Unknown No pertinent family history <Allyssa Butler PA-C - Last Filed: 08/06/24 14:45> Social History Social History: Social History Smoking status: Never smoker Second hand tobacco smoke exposure: No Alcohol intake: never Substance use: never Substance use type: does not use Living arrangements: with family Occupation/Education: unemployed Gender identity (if verbalized by the patient): Female Sexual Orientation (if Verbalized by the Patient): Straight or Heterosexual Spiritual care concerns: No <Allyssa Butler PA-C - Last Filed: 08/06/24 14:45> Exam 2 Narrative: APPEARANCE: Well appearing, no pain, no distress, well-nourished. HEAD: normocephalic, atraumatic. EYES: PERRLA/EOMI, conjunctivae clear. NOSE: Normal no drainage EARS:TMS clear with good light reflex. THROAT: Pharynx clear, no exudate. NECK: Supple. No adenopathy, no masses. RESPIRATORY: Airway patent, respirations nonlabored. Clear to auscultation bilaterally, no rales, rhonchi, wheezing. CARDIOVASCULAR: Regular rate and rhythm without murmurs rubs or gallops. ABDOMINAL: Left-sided abdominal tenderness to palpation MUSCULOSKELETAL: Moves all extremities. Strength/ROM intact, No edema, No calf tenderness. NEURO: Alert. Cranial nerves II through XII intact. Good gait. Good coordination SKIN: Warm, dry. Normal Color PSYCHIATRIC: Normal affect/mood. <Chicho Maurer MD - Last Filed: 08/05/24 22:41> Course Vital Signs Vital signs: Vital Signs Temperature 97.4 F L 08/05/24 10:43 Pulse Rate 79 08/05/24 10:43 Respiratory Rate 16 08/05/24 10:43 Blood Pressure 149/73 H 08/05/24 10:43 Pulse Oximetry 100 08/05/24 10:43 Oxygen Delivery Room Air 08/05/24 10:43 Temperature 97.4 F L 08/05/24 10:43 Pulse Rate 79 08/05/24 10:43 Respiratory Rate 16 08/05/24 10:43 Blood Pressure 113/51 L 08/05/24 17:01 Pulse Oximetry 100 08/05/24 17:45 Oxygen Delivery Room Air 08/05/24 10:43 <Allyssa Butler PA-C - Last Filed: 08/06/24 14:45> Vital Signs Temperature 97.4 F L 08/05/24 10:43 Pulse Rate 79 08/05/24 10:43 Respiratory Rate 16 08/05/24 10:43 Blood Pressure 149/73 H 08/05/24 10:43 Pulse Oximetry 100 08/05/24 10:43 Oxygen Delivery Room Air 08/05/24 10:43 Temperature 97.4 F L 08/05/24 10:43 Pulse Rate 79 08/05/24 10:43 Respiratory Rate 16 08/05/24 10:43 Blood Pressure 113/51 L 08/05/24 17:01 Pulse Oximetry 08/05/24 17:45 Oxygen Delivery Room Air 08/05/24 10:43 <Chicho Maurer MD - Last Filed: 08/05/24 22:41> MDM - Abdominal Pain MDM Narrative Medical decision making narrative: 39-year-old female present to the emergency department for evaluation for left-sided abdominal pain. Patient is afebrile with no leukocytosis hemoglobin of 12.1. Patient has no significant abnormality. Urine was negative for urinary tract infection. CT scan showed no acute intracranial abnormality. Suspect gastritis and patient did feel improved after treatment with IV famotidine, IV Protonix and GI cocktail. Patient was current of close follow-up with GI. Patient has been taking ibuprofen <Chicho Maurer MD - Last Filed: 08/05/24 22:41> Differential Diagnosis Differential diagnosis: Likely abdominal pain, acute appendicitis, calculus of kidney, constipation, diverticulitis, endometriosis, gastroenteritis, pancreatitis and small bowel obstruction <Chicho Maurer MD - Last Filed: 08/05/24 22:41> Lab Data Attestation: I reviewed the patient's lab results. <Chicho Maurer MD - Last Filed: 08/05/24 22:41> Result diagrams: 08/05/24 13:09 08/05/24 13:09 <Allyssa Butler PA-C - Last Filed: 08/06/24 14:45> Labs: Lab Results 08/05/24 08/05/24 Range/Units 13:09 13:11 WBC 5.3 (4.5-10.0) K/mm3 RBC 4.69 (4.2-5.4) M/mm3 Hgb 12.1 (12.0-15.0) g/dL Hct 38.7 (37.0-47.0) % MCV 82.5 (80-100) fl MCH 25.8 L (26-34) pg MCHC 31.3 L (32-36) g/dl RDW 17.1 H (11.5-14.5) % Plt Count 330 (150-375) k/mm3 MPV 10.0 (7.4-10.4) fl Immature Gran % (Auto) 0.6 H (0-0.5) % Neut % (Auto) 62.8 (45.5-73.1) % Lymph % (Auto) 28.2 (18.3-44.2) % [place] % (Auto) 6.2 (2.6-8.5) % Eos % (Auto) 1.1 (0-4.4) % Baso % (Auto) 1.1 (0.2-1.2) % Lymph # (Auto) 1.49 (0.9-3.2) K/mm3 [place] # (Auto) 0.3 (0.1-0.6) K/mm3 Eos # (Auto) 0.1 (0-0.3) K/mm3 Baso # (Auto) 0.1 (0.0-0.1) K/mm3 Abs Immat Gran (auto) 0.03 (0.00-0.031) K/mm3 Absolute Neuts (auto) 3.3 (1.3-6.7) K/mm3 Absolute Nucleated RBC 0.000 (0.0-0.012) K/mm3 Nucleated RBC % 0.0 (0.0-0.2) % Sodium 140 (137-145) mmol/L Potassium 4.1 (3.4-5.0) mmol/L Chloride 105 (98-107) mmol/L Carbon Dioxide 25 (22-30) mmol/L Anion Gap 10 (4-12) mmol/L BUN 10 (7-17) mg/dL Creatinine 0.60 L (0.7-1.0) mg/dL Estim Creat Clear Calc 132 ml/min Estimated GFR > 60 (59 - ) Glucose 108 (65-110) mg/dL Calcium 9.4 (8.4-10.2) mg/dL Total Bilirubin 0.6 (0.2-1.3) mg/dL AST 51 H (14-36) U/L ALT 51 H (6-35) U/L Alkaline Phosphatase 96 (38-126) U/L Total Protein 8.0 (6.3-8.2) g/dL Albumin 4.2 (3.5-5.1) g/dL Lipase 58 (23-300) U/L Urine Color Yellow (Yellow) Urine Appearance Clear (Clear) Urine pH 6.5 (5.0-9.0) Ur Specific [place] 1.016 (1.001-1.035) Urine Protein Negative (Negative) mg/dL Urine Glucose (UA) Negative (Negative) mg/dL Urine Ketones Negative (Negative) mg/dL Ur Blood (Man) Negative (Negative) Urine Nitrate Negative (Negative) Urine Bilirubin Negative (Negative) Urine Urobilinogen 0.2 (<2.0) mg/dL Leukocyte Esterase Rfl Negative (Negative) BELIA/UL POC Urine HCG, Qual Negative (Negative) <Allyssa Butler PA-C - Last Filed: 08/06/24 14:45> Lab Results 08/05/24 08/05/24 Range/Units 13:09 13:11 WBC 5.3 (4.5-10.0) K/mm3 RBC 4.69 (4.2-5.4) M/mm3 Hgb 12.1 (12.0-15.0) g/dL Hct 38.7 (37.0-47.0) % MCV 82.5 (80-100) fl MCH 25.8 L (26-34) pg MCHC 31.3 L (32-36) g/dl RDW 17.1 H (11.5-14.5) % Plt Count 330 (150-375) k/mm3 MPV 10.0 (7.4-10.4) fl Immature Gran % (Auto) 0.6 H (0-0.5) % Neut % (Auto) 62.8 (45.5-73.1) % Lymph % (Auto) 28.2 (18.3-44.2) % [place] % (Auto) 6.2 (2.6-8.5) % Eos % (Auto) 1.1 (0-4.4) % Baso % (Auto) 1.1 (0.2-1.2) % Lymph # (Auto) 1.49 (0.9-3.2) K/mm3 [place] # (Auto) 0.3 (0.1-0.6) K/mm3 Eos # (Auto) 0.1 (0-0.3) K/mm3 Baso # (Auto) 0.1 (0.0-0.1) K/mm3 Abs Immat Gran (auto) 0.03 (0.00-0.031) K/mm3 Absolute Neuts (auto) 3.3 (1.3-6.7) K/mm3 Absolute Nucleated RBC 0.000 (0.0-0.012) K/mm3 Nucleated RBC % 0.0 (0.0-0.2) % Sodium 140 (137-145) mmol/L Potassium 4.1 (3.4-5.0) mmol/L Chloride 105 (98-107) mmol/L Carbon Dioxide 25 (22-30) mmol/L Anion Gap 10 (4-12) mmol/L BUN 10 (7-17) mg/dL Creatinine 0.60 L (0.7-1.0) mg/dL Estim Creat Clear Calc 132 ml/min Estimated GFR > 60 (59 - ) Glucose 108 (65-110) mg/dL Calcium 9.4 (8.4-10.2) mg/dL Total Bilirubin 0.6 (0.2-1.3) mg/dL AST 51 H (14-36) U/L ALT 51 H (6-35) U/L Alkaline Phosphatase 96 (38-126) U/L Total Protein 8.0 (6.3-8.2) g/dL Albumin 4.2 (3.5-5.1) g/dL Lipase 58 (23-300) U/L Urine Color Yellow (Yellow) Urine Appearance Clear (Clear) Urine pH 6.5 (5.0-9.0) Ur Specific [place] 1.016 (1.001-1.035) Urine Protein Negative (Negative) mg/dL Urine Glucose (UA) Negative (Negative) mg/dL Urine Ketones Negative (Negative) mg/dL Ur Blood (Man) Negative (Negative) Urine Nitrate Negative (Negative) Urine Bilirubin Negative (Negative) Urine Urobilinogen 0.2 (<2.0) mg/dL Leukocyte Esterase Rfl Negative (Negative) BELIA/UL POC Urine HCG, Qual Negative (Negative) <Chicho Maurer MD - Last Filed: 08/05/24 22:41> Imaging Data Radiologist's impression: ITS Impressions Abdomen/Pelvis CT 08/05/24 16:35 IMPRESSION: 1. No acute intra-abdominal/pelvic process. <Allyssa Butler PA-C - Last Filed: 08/06/24 14:45> ITS Impressions Abdomen/Pelvis CT 08/05/24 16:35 IMPRESSION: 1. No acute intra-abdominal/pelvic process. <Chicho Maurer MD - Last Filed: 08/05/24 22:41> Critical Care Time Critical Care Time Critical Care Time: No <Allyssa Butler PA-C - Last Filed: 08/06/24 14:45> Discharge Plan Discharge Clinical Impression: Left sided abdominal pain <Allyssa Butler PA-C - Last Filed: 08/06/24 14:45> Patient Disposition: Home, Self-Care <Allyssa Butler PA-C - Last Filed: 08/06/24 14:45> Condition: Stable <Allyssa Butler PA-C - Last Filed: 08/06/24 14:45> Instructions: Antibiotic Form, Diet for Stomach Ulcers and Gastritis (ED), Abdominal Pain (ED) <Allyssa Butler PA-C - Last Filed: 08/06/24 14:45> Additional Instructions: Omeprazole as directed to help for possible gastritis. Have close follow- up with your primary care physician for additional workup. Follow a bland diet. If you have any worsening symptoms then please call or return to the emergency department. <Allyssa Butler PA-C - Last Filed: 08/06/24 14:45> Patient Language: Senegalese <Allyssa Butler PA-C - Last Filed: 08/06/24 14:45> Prescriptions: New omeprazole 20 mg capsule,delayed release(DR/EC) 20 mg PO DAILY 14 Days Qty: 14 0RF <Allyssa Butler PA-C - Last Filed: 08/06/24 14:45> Follow-up/Referrals: Kimberly,MD Chaparro [Primary Care Provider] - <Allyssa Butler PA-C - Last Filed: 08/06/24 14:45>
--- OUTSIDE RECORDS SUMMARY | 2024-08-05 13:05 | XMS_ITS | Encounter Summary ---
Author Organization [facility] [employer] Address [address] [place] [address] Care Team Providers Care Finnish Rubber Name Role Phone Chaparro Harris MD Primary Care Provider [phone] Reason for Visit * Reason Onset Date Comments lab orders 08/25/2022 Encounter Details Date Type Department Care Team (Late Contact Info) Description 08/25/2022 Telephone [facility] Oncology and Hematology - [place] [address] [facility] [address] [place] [address] [place] [address] [place] [address] [address] [place] [address] lab orders Social History Tobacco Use Types Packs/Day Years Used Date Smoking Tobacco: Never Smokeless Tobacco: Never Alcohol Use Standard Drinks/Week Comments No 0 (1 standard drink = 0.6 oz pur e alcohol) Comments No Sex and Gender Information Value Date Recorded Sex Assigned at Not on file Legal Sex Female 5:58 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 No / Unsure 08/26/2022 3:07 PM FOOD CROPS FARM HAND documented as of this encounter Plan of Treatment Upcoming Encounters Date Type Department Care Team (Late Contact Info) Description 10/05/2024 3:45 PM CDT Office Visit [facility] Oncology and Hematology - [place] [address] [facility] [address] [place] [address] Codey Angeles MD [address] [facility] [address] [place] [address] Scheduled Orders Name Type Priority [...] (chronic) documented in this encounter Care Teams Finnish Rubber Relationship Specialty Start Date End Date Chaparro Harris MD [address] [place] [address] PCP - General Family Practice 02/27/23 documented as of this encounter
--- OUTSIDE RECORDS SUMMARY | 2024-08-05 13:05 | XMS_ITS | CONTINUITY OF CARE DOCUMENT ---
Author Name yaima erwin Address Unknown Organization [facility] Address [address] [facility] [address] [place] [address] Phone [phone] Care Team Providers Care Care Director Name Role Phone Peter PINK, Daisy Unavailable ANAYA PINK, RAJWINDER Unavailable INSURANCE PROVIDERS Payer name Policy type / Coverage type [place] red democrat ID [facility] [id number] Other [id number] HEALTHCARE AND FAMILY SERVICES Medicaid 0 [id number]
--- OUTSIDE RECORDS SUMMARY | 2024-08-05 13:05 | XMS_ITS | Referral Summary ---
Author Organization [facility] Address [address] [place] [address] Care Team Providers Care Proposition Player Name Role Phone Addie Jennings MD Unavailable [phone] Thang Heck MD Primary Care Provider [phone] Source Comments [facility],non-owned Affiliates and Associated Physician Practices is amultiple site organization consisting of ambulatory clinics and hospital sitesin [place], [place], [place] and [place]. This disclosure is being madepursuant to the Care Everywhere program and may not contain all information available regarding this patient. Last updated 18.[facility] Encounters Date Type Department Care Team Description 07/04/2024 Travel from Last 3 Months Allergies Active Allergy Reactions Criticality Noted Date Comments Nsaids Other Low Reaction: Medications * Be aware that medications may not be up to date on this document. Alwaysverify current medications with the patient. Medication Sig Dispensed Refills Start Date End Date Status HYDROcodone-acetami nophen ([place]) 5-325 MG tablet TAKE 1 OR 2 [...] Comments Blood Pressure 136/73 07/03/2022 3:58 PM MORTICIAN SUPPLIES SALES REPRESENTATIVE Pulse 85 07/03/2022 3:58 PM MORTICIAN SUPPLIES SALES REPRESENTATIVE Temperature 37.1 ??C (98.7 ??F) 07/03/2022 3:58 PM CS T Respiratory Rate 16 07/03/2022 3:58 PM MORTICIAN SUPPLIES SALES REPRESENTATIVE Oxygen Saturation 100% 07/03/2022 3:58 PM MORTICIAN SUPPLIES SALES REPRESENTATIVE Inhaled Oxygen Concentration - - Weight 117.9 kg (260 lb) 07/03/2022 3:58 PM MORTICIAN SUPPLIES SALES REPRESENTATIVE Height 162.6 cm (5' 4 ) 07/03/2022 3:58 PM MORTICIAN SUPPLIES SALES REPRESENTATIVE Body Mass Index 44.63 07/03/2022 3:58 PM MORTICIAN SUPPLIES SALES REPRESENTATIVE Plan of Treatment Not on file Procedures [...] Resulting Agency Comment Lab Testing performed at: [facility] [address] [place] [address] ??[facility] [id number] Lottie Caridadvalenciaalize MACHINE ASSEMBLER FOR PULLER OVER-DESK INTERVIEWER LAB - CHEMI STRY ORDERABLES [facility] ACCOUNT BILL [address] [place] [address] * ALIZE DIAG DIRECT DIG IMAGE BILATERAL [id number] (05/07/2018 9:24 AM CDT) Anatomical Region Laterality Modality Breast Bilateral Mammography 05/07/2018 9:36 AM CDT Addenda Addendum by Mellisa Drake MD on 06/04/2018 11:19 AM MORTICIAN SUPPLIES SALES REPRESENTATIVE Previous mammograms from [facility] on 04/10/2016 and 03/27/2016 are now [...] participate in the care of your patient. [facility] utilizes [employer] as a reminder system to notify patients [...] utilized. PRIOR: Previous mammogram was performed at [facility]. This was not available for review at [...] utilized. PRIOR: Previous mammogram was performed at [facility]. This was not available for review at [...] participate in the care of your patient. [facility] utilizes [employer] as a reminder system to notify patients of their next recommended mammogram. Reading Radiologist: Mellisa Drake MD on 05/07/2018 at 10:53 AM Mellisa Drake MD MAMMO ORDERABLES from Last 3 Months or Most Recently Relevant to Health Maintenance Advance Directives * Full Code (Latest Code Status on File) Date Activated Date Inactivated Comments 03/30/2010 2:48 PM 04/09/2010 5:05 AM Care Teams Proposition Player Relationship Specialty Start Date End Date Thang Heck MD [address] [place] [address] PCP - General 06/10/22 Addie Jennings MD [address] [facility] [address] [place] [id number] Endocrinology 01/31/20
--- OUTSIDE RECORDS SUMMARY | 2024-08-05 13:05 | XMS_ITS | Clinical Summary ---
Author Organization [facility] Address [address] [address] Phone Care Team Providers Care Supervisor Bit And Shank Department Name Role Phone Provider, None Primary Care [...] Department Care Team Description 08/04/2024 6:43 PM [facility] - 08/04/2024 9:25 PM [facility] Emergency [facility] Emergency [address] [place] [address] Sandy Leyva APRN, MULCHER OPERATOR Generalized abdominal pain Discharge Disposition: Discharged to home or Selfcare 08/04/2024 Travel 05/23/2024 7:00 PM [facility] - 05/23/2024 10:15 PM [facility] Emergency [facility] Emergency [address] [place] [address] Maurice Coy MD Acute nonintractable headache, unspecified [...] Sex Assigned at Female 05/23/2024 7:05 PM [facility] Legal Sex Female 1:02 PM [facility] Gender Identity Female 05/23/2024 7:05 PM [facility] Sexual Orientation Not on file Last Filed Vital Signs Vital Sign Reading Time Taken Comments Blood Pressure 138/91 08/04/2024 9:24 PM [facility] Pulse 97 08/04/2024 9:24 PM [facility] Temperature 36.7 ??C (98.1 ??F) 08/04/2024 6:39 PM CS T Respiratory Rate 14 08/04/2024 9:24 PM [facility] Oxygen Saturation 100% 08/04/2024 9:24 PM [facility] Inhaled Oxygen Concentration - - Weight 117.9 kg (260 lb) 08/04/2024 6:39 PM [facility] Height 165.1 cm (5' 5 ) 08/04/2024 6:39 PM [facility] Body Mass Index 43.27 08/04/2024 6:39 PM [facility] Plan of Treatment Health Maintenance Due Date [...] CONTRAST) Stat with Interpretation 08/04/2024 7:54 PM [facility] GOLD TOP TUBE STAT 08/04/2024 7:26 PM [facility] BLUE TOP TUBE STAT 08/04/2024 7:26 PM [facility] CBC WITH AUTO DIFFERENTIAL STAT 08/04/2024 7:26 PM [facility] EXTRA TUBES STAT 08/04/2024 7:26 PM [facility] CMP (COMPREHENSIVE METABOLIC PANEL) STAT 08/04/2024 7:26 PM [facility] COMPLETE BLOOD COUNT (CBC) WITH DIFF STAT 08/04/2024 7:26 PM [facility] POCT URINE HCG () STAT 08/04/2024 6:50 PM [facility] URINALYSIS REFLEX IF INDICATED BY ABNORMAL RESULTS STAT 08/04/2024 6:[address] HEAD OR BRAIN WO CONTRAST Stat with Interpretation 05/23/2024 8:22 PM [facility] URINALYSIS REFLEX IF INDICATED BY ABNORMAL RESULTS STAT 05/23/2024 8:04 PM [facility] POCT URINE HCG () STAT 05/23/2024 8:03 PM [facility] BLUE TOP TUBE STAT 05/23/2024 6:41 PM [facility] CBC WITH AUTO DIFFERENTIAL STAT 05/23/2024 6:41 PM [facility] TROPONIN I, HIGH SENSITIVITY (HSTRP) STAT 05/23/2024 6:41 PM [facility] EXTRA TUBES STAT 05/23/2024 6:41 PM [facility] CMP (COMPREHENSIVE METABOLIC PANEL) STAT 05/23/2024 6:41 PM [facility] COMPLETE BLOOD COUNT (CBC) WITH DIFF STAT 05/23/2024 6:41 PM [facility] POCT GLUCOSE STAT 05/23/2024 6:38 PM [facility] EKG 12 LEAD STAT 05/23/2024 6:31 PM [facility] EKG SCAN 05/23/2024 12:00 AM [facility] from Last 3 Months Results * CT RENAL STONE STUDY (ABDOMEN AND PELVIS W/O CONTRAST) (08/04/2024 7:54 PM [facility]) Anatomical Region Laterality Modality Abdomen N/A Computed Tomogra phy 08/04/2024 8:07 PM [facility] Impressions 08/04/2024 8:09 PM [facility] IMPRESSION: ?? 1. ?? No gross CT finding to explain the patient's symptoms. 2. ?? Prominent uterus. ??Ascencion of gas within the lower uterine segment, likely due to reflux. Narrative 08/04/2024 8:09 PM [facility] TE[facility] EXAM DESCRIPTION: ?? CT RENAL STONE STUDY [...] PM T: ??08/04/2024 8:07 PM Report ID: [id number] Reading Location: ??[id number] Procedure Note Skip Ta MD - 08/04/2024 [...] Skip Ta M.D. AG: GERMÁN Report ID: [id number] Reading Location: [place] [address] IMPRESSION: 1. No gross CT finding to explain the patient's symptoms. 2. Prominent uterus. Ascencion of gas within the lower uterine segment, likely due to reflux. Sandy Leyva APRN, CNP IMG CT ORDERABLES Fin al Result * Gold Top Tube (08/04/2024 7:26 PM [facility]) Blood No Phlebotomy Charged / Unknown 08/04/2024 7:26 PM [facility] 08/04/2024 7:38 PM [facility] Sandy Leyva APRN, CNP CHEMISTRY ORDERABLES Final Result [facility] [[email or web address]] LAB [address] [place] [address] * Blue Top Tube (08/04/2024 7:26 PM [facility]) Only the most recent of2 resultswithin the time period is included. Blood No Phlebotomy Charged / Unknown 08/04/2024 7:26 PM [facility] 08/04/2024 7:38 PM [facility] Sandy Leyva APRN, MULCHER OPERATOR HEMATOLOGY ORDERABLES Final Result [facility] [address] [place] [address] * (ABNORMAL) CBC with Auto Differential (08/04/2024 7:26 PM [facility]) Only the most recent of2 resultswithin the time period is included. WBC 6.97 4.00 - 12.00 10(3)/mcL 08/04/2024 7:40 PM [facility] RBC 4.46 3.80 - 5.30 10(6)/mcL 08/04/2024 7:40 PM [facility] HEMOGLOBIN (HGB) 11.5(L) 12.0 - 15.8 g/dL 08/04/2024 7:40 PM [facility] HEMATOCRIT (HCT) 36.2 36.0 - 47.0 % 08/04/2024 7:40 PM [facility] MCV 81.2(L) 82.0 - 96.0 fL 08/04/2024 7:40 PM [facility] MCH 25.8(L) 26.0 - 34.0 pg 08/04/2024 7:40 PM [facility] MCHC 31.8 31.0 - 36.0 g/dL 08/04/2024 7:40 PM [facility] PLATELET COUNT 348 140 - 440 10(3)/mcL 08/04/2024 7:40 PM [facility] RDW 16.7(H) 11.8 - 15.5 % 08/04/2024 7:40 PM [facility] MPV 9.9 9.7 - 12.4 fL 08/04/2024 7:40 PM [facility] NEUTROPHILS 63.8 47.0 - 73.0 % 08/04/2024 7:40 PM [facility] LYMPHOCYTES 27.3 18.0 - 42.0 % 08/04/2024 7:40 PM [facility] MONOCYTES 7.3 4.0 - 12.0 % 08/04/2024 7:40 PM [facility] EOSINOPHILS 1.0 0.0 - 5.0 % 08/04/2024 7:40 PM [facility] BASOPHILS 0.6 0.0 - 1.0 % 08/04/2024 7:40 PM [facility] ABSOLUTE NEUTROPHILS 4.45 1.60 - 7.70 10(3)/[facility] 08/04/2024 7:40 PM [facility] ABSOLUTE LYMPHOCYTES 1.90 1.30 - 3.20 10(3)/[facility] 08/04/2024 7:40 PM [facility] ABSOLUTE MONOCYTES 0.51 0.20 - 1.00 10(3)/[facility] 08/04/2024 7:40 PM [facility] ABSOLUTE EOSINOPHIL 0.07 0.00 - 0.40 10(3)/[facility] 08/04/2024 7:40 PM [facility] ABSOLUTE BASOPHILS 0.04 0.00 - 0.10 10(3)/[facility] 08/04/2024 7:40 PM [facility] NRBC PER 100 WBC 0 08/04/19 7:40 PM [facility] Blood Venipuncture / Unknown 08/04/2024 7:26 PM [facility] 08/04/2024 7:37 PM [facility] us Sandy Leyva BENZENE WASHER OPERATOR, MULCHER OPERATOR HEMATOLOGY ORDERABLES Final Result [facility] [address] [place] [address] * (ABNORMAL) Comprehensive Metabolic Panel (Cmp) [id number] (08/04/2024 7:26 PM [facility]) Only the most recent of2 resultswithin the time period is included. SODIUM 141 136 - 145 mmol/L 08/04/2024 8:00 PM [facility] POTASSIUM 3.6 3.5 - 5.1 mmol/L 08/04/2024 8:00 PM [facility] CHLORIDE 107 98 - 107 mmol/L 08/04/2024 8:00 PM [facility] CO2, VENOUS 25 22 - 30 mmol/L 08/04/2024 8:00 PM [facility] ANION GAP 12.6 <18.0 mmol/L 08/04/2024 8:00 PM [facility] GLUCOSE 167(H) 70 - 99 mg/dL 08/04/2024 8:00 PM [facility] BUN 11 5 - 18 mg/dL 08/04/2024 8:00 PM [facility] CREATININE, BLOOD 0.84 0.60 - 1.00 mg/dL 08/04/2024 8:00 PM [facility] BUN/CREATININE RATIO 13 12 - 20 ratio 08/04/2024 8:00 PM [facility] TOTAL PROTEIN 8.0 6.0 - 8.0 g/dL 08/04/2024 8:00 PM [facility] ALBUMIN 4.2 3.5 - 5.0 g/dL 08/04/2024 8:00 PM [facility] A/G RATIO 1.1 1.0 - 2.2 08/04/2024 8:00 PM [facility] CALCIUM 9.3 8.7 - 10.5 mg/dL 08/04/2024 8:00 PM [facility] T BILI 0.2 0.2 - 1.2 mg/dL 08/04/2024 8:00 PM [facility] SGOT (AST) 40 6 - 42 U/L 08/04/2024 8:00 PM [facility] SGPT (ALT) 46 6 - 55 U/L 08/04/2024 8:00 PM [facility] ALKALINE PHOSPHATASE 88 40 - 150 U/L 08/04/2024 8:00 PM [facility] GFR, ESTIMATED >60 >=60 08/04/2024 8:00 PM [facility] Comment: Creatinine Clearance is the preferred criteria for selecting drug dose adjustments in renally impaired patients. ??The GFR is provided as additional pertinent clinical information. GFR is reported in mL/min/1.73 sq m. Calculation based on the Chronic Kidney Disease Epidemiology Collaboration (CKD- EPI) equation refit without adjustment for race. GFR, EST. >60 >=60 025 8:00 PM [facility] GFR, EST. NONAFRICAN >60 >=60 08/04/2024 8:00 PM [facility] Blood Venipuncture / Unknown 08/04/2024 7:26 PM [facility] 08/04/2024 7:37 PM [facility] us Sandy Leyva APRN, MULCHER OPERATOR CHEMISTRY ORDERABLES Final Result [facility] [address] [place] [address] * POCT Urine HCG () (08/04/2024 6:50 PM [facility]) Only the most recent of2 resultswithin the time period is included. POC URINE Negative POC URINE CONTROL [place]p [place] Urine 08/04/2024 6:50 PM [facility] us Colt Lozano MD POINT OF CARE TESTING ([place] NUM[place]) Final Result * (ABNORMAL) URINALYSIS REFLEX IF INDICATED BY ABNORMAL RESULTS (08/04/2024 6:46 PM [facility]) Only the most recent of2 resultswithin the time period is included. SPECIFIC GRAVITY 1.020 1.003 - 1.030 08/04/2024 7:24 PM [facility] URINE PH 7.0 5.0 - 9.0 08/04/2024 7:24 PM [facility] WBC ESTERASE Negative Negative 08/04/2024 7:24 PM [facility] NITRITE Negative Negative 08/04/2024 7:24 PM [facility] PROTEIN, RANDOM URINE 15 mg/dL(A) Negative 08/04/2024 7:24 PM [facility] URINE GLUCOSE, QUAL Negative Negative 08/04/2024 7:24 PM [facility] URINE KETONES Negative Negative 08/04/2024 7:24 PM [facility] UROBILINOGEN Normal Normal mg/dL 08/04/2024 7:24 PM [facility] URINE BLOOD 10 /uL(A) Negative renee/ul 08/04/2024 7:24 PM [facility] URINALYSIS COLOR Yellow 08/04/19 7:24 PM [facility] URINALYSIS CLARITY Clear 08/04/2024 7:24 PM [facility] WBC (Urine) 0-5 Negative, 0-5 /hpf 08/04/2024 7:24 PM [facility] URINE RBC'S 3-5(A) Negative, 0-2 /hpf 08/04/2024 7:24 PM [facility] EPITHELIAL CELLS Moderate amount /lpf 08/04/2024 7:24 PM [facility] BACTERIA, URINE Few(A) Negative /hpf 08/04/2024 7:24 PM [facility] CRYSTALS Amorphous urates 08/04/2024 7:24 PM [facility] Urine URINE SPECIMEN COLLECTION, CLEAN CATCH / Unknown Non-Phlebotomy Collection / Unknown 08/04/2024 6:46 PM [facility] 08/04/2024 6:58 PM [facility] us Colt Lozano MD URINE ORDERABLES Final Re sult [facility] [[email or web address]] LAB [address] [place] [address] * CT HEAD OR BRAIN WO CONTRAST (05/23/2024 8:22 PM [facility]) Anatomical Region Laterality Modality Head N/A Computed Tomogra phy 05/23/2024 9:26 PM [facility] Impressions 05/23/2024 9:29 PM [facility] IMPRESSION: 1. ?? No acute intracranial findings. Narrative 05/23/2024 9:29 PM [facility] EXAM DESCRIPTION: CT HEAD OR BRAIN WO [...] PM T: ??05/23/2024 9:26 PM Report ID: [id number] Reading Location: ??[id number] Procedure Note Chace Singer MD - 05/23/2024 [...] Chace Singer M.D. AT: AT Report ID: [id number] Reading Location: [id number] IMPRESSION: 1. No acute intracranial findings. Maurice Coy MD IMG CT ORDERABLES Fi nal Result * TROPONIN I, HIGH SENSITIVITY (HSTRP) (05/23/2024 6:41 PM [facility]) TROPONIN I, HIGH SENSITIVITY- RODRIGUEZ <3 <=14 ng/L 05/23/2024 10:01 PM [facility] [[email or web address]] LAB Comment: High-sensitivity troponin I results are reported in ng/L making the result appear to be 1,000 times higher than the contemporary troponin I value which is reported in ng/ml. Results from [place]. Blood Venipuncture / Unknown 05/23/2024 6:41 PM [facility] 05/23/2024 6:50 PM [facility] Maurice Coy MD CHEMISTRY ORDERABLES Final Result [facility] [address] [place] [address] * POCT Glucose (05/23/2024 6:38 PM [facility]) GLUCOSE,BEDSIDE POCT 91 70 - 99 mg/dL 05/23/2024 6:54 PM [facility] [[email or web address] LAB Blood 05/23/2024 6:38 PM [facility] 05/23/2024 6:54 PM [facility] us None Provider POINT OF CARE TESTING Final Resu lt Performing Organization Address [facility] de Phone Number [facility] [address] [place] [address] * EKG 12 LEAD (05/23/2024 6:31 PM [facility]) Ventricular Rate 79 BPM EXTERNAL EKG Atrial Rate 79 BPM EXTERNAL EKG P-R Interval 160 ms EXTERNAL EKG QRS Duration 86 ms EXTERNAL EKG Q-T Duration 394 ms EXTERNAL EKG QTC CALCULATION 451 ms EXTERNAL EKG P Springer 33 degrees EXTERNAL EKG R Springer 13 degrees EXTERNAL EKG T Springer 30 degrees EXTERNAL EKG 05/23/2024 6:31 PM [facility] Impressions EXTERNAL EKG - 05/24/2024 1:00 PM [facility] Normal sinus rhythm Normal ECG When compared with ECG of 03/27/2024 No significant change was found ~ ~ Confirmed by RUBÉN FERRARO ([id number]) on 05/24/2024 1:00:31 PM Narrative Procedure Note Rubén Ferraro MD - 05/24/2024 IMPRESSION: Normal sinus rhythm Normal ECG When compared with ECG of 03/27/2024 No significant change was found ~ ~ Confirmed by RUBÉN FERRARO ([id number]) on 05/24/2024 1:00:31 PM us Wendy Stoddard MD IMG ECG ORDERABLES Final Resu lt EXTERNAL EKG * EKG SCAN (05/23/2024 12:00 AM [facility]) 05/23/2024 us Provider Scan IMG ECG ORDERABLES Final Result RESULTING AGENCY from Last 3 Months Insurance MEDICAID [employer] Care Teams Supervisor Bit And Shank Department Relationship Specialty Start Date End Date Provider, None [place] PCP - General 08/05/22
--- OUTSIDE RECORDS SUMMARY | 2024-08-05 13:05 | XMS_ITS | Clinical Summary ---
Author Organization [facility] Address [address] [place] [address] Care Team Providers Care Router Operator Pin Name Role Phone Addie Jennings MD Unavailable [phone] Thang Heck MD Primary Care Provider [phone] Source Comments [facility],non-owned Affiliates and Associated Physician Practices is amultiple site organization consisting of ambulatory clinics and hospital sitesin [place], [place], [place] and [place]. This disclosure is being madepursuant to the Care Everywhere program and may not contain all information available regarding this patient. Last updated 18.[facility] Allergies Active Allergy Reactions Criticality Noted Date Comments Nsaids Other Low Reaction: Medications * Be aware that medications may not be up to date on this document. Alwaysverify current medications with the patient. Medication Sig Dispensed Refills Start Date End Date Status HYDROcodone-acetami nophen ([place]) 5-325 MG tablet TAKE 1 OR 2 [...] Comments Blood Pressure 136/73 07/03/2022 3:58 PM RN [facility] Pulse 85 07/03/2022 3:58 PM RN [facility] Temperature 37.1 ??C (98.7 ??F) 07/03/2022 3:58 PM CS T Respiratory Rate 16 07/03/2022 3:58 PM RN [facility] Oxygen Saturation 100% 07/03/2022 3:58 PM RN [facility] Inhaled Oxygen Concentration - - Weight 117.9 kg (260 lb) 07/03/2022 3:58 PM RN [facility] Height 162.6 cm (5' 4 ) 07/03/2022 3:58 PM RN [facility] Body Mass Index 44.63 07/03/2022 3:58 PM RN [facility] Plan of Treatment Health Maintenance Due Date [...] Resulting Agency Comment Lab Testing performed at: [address] ??[facility] [id number] Lottie Verduzco INFANT TEACHER-FUR CUTTING MACHINE OPERATOR LAB - CHEMI STRY ORDERABLES [facility] ACCOUNT BILL [address] [place] [address] * ALIZE DIAG DIRECT DIG IMAGE BILATERAL [id number] (05/07/2018 9:24 AM CDT) Anatomical Region Laterality Modality Breast Bilateral Mammography 05/07/2018 9:36 AM CDT Addenda Addendum by Mellisa Drake MD on 06/04/2018 11:19 AM RN [facility]Y Previous mammograms from [facility] on 04/10/2016 and 03/27/2016 are now available [...] participate in the care of your patient. [facility] utilizes 4th aspect as a reminder system to notify patients [...] utilized. PRIOR: Previous mammogram was performed at [facility]. This was not available for review [...] utilized. PRIOR: Previous mammogram was performed at [facility]. This was not available for review [...] participate in the care of your patient. [facility] utilizes 4th aspect as a reminder system to notify patients of their next recommended mammogram. Reading Radiologist: Mellisa Drake MD on 05/07/2018 at 10:53 AM Mellisa Drake MD MAMMO ORDERABLES from Last 3 Months or Most Recently Relevant to Health Maintenance Advance Directives * Full Code (Latest Code Status on File) Date Activated Date Inactivated Comments 03/30/2010 2:48 PM 04/09/2010 5:05 AM Care Teams Router Operator Pin Relationship Specialty Start Date End Date Thang Heck MD [address] [place] [address] PCP - General 06/10/22 Addie Jennings MD [address] [place] [id number] Endocrinology 01/31/20
--- OUTSIDE RECORDS SUMMARY | 2024-08-05 13:05 | XMS_ITS | Patient Health Summary ---
Author Organization [facility] Address [address] [place] [address] Care Team Providers Care Industrial Education Instructor Name Role Phone Addie Jennings MD Unavailable [phone] Thang Heck MD Primary Care Provider [phone] Note from [facility],non-owned Affiliates and Associated Physician Practices is amultiple site organization consisting of ambulatory clinics and hospital sitesin [place], [place], [place] and [place]. This disclosure is being madepursuant to the Care Everywhere program and may not contain all information available regarding this patient. Last updated 18.[facility] Allergies * Nsaids(Other) -Low Criticality Medications * Be aware that medications may not be up to date on this document. Alwaysverify current medications with the patient. * HYDROcodone-acetaminophen ([place]) 5-325 MG tablet(Started 05/31/2022) TAKE 1 OR [...] Comments Blood Pressure 136/73 07/03/2022 3:58 PM TABLET TECHNICIAN Pulse 85 07/03/2022 3:58 PM TABLET TECHNICIAN Temperature 37.1 ??C (98.7 ??F) 07/03/2022 3:58 PM CS T Respiratory Rate 16 07/03/2022 3:58 PM TABLET TECHNICIAN Oxygen Saturation 100% 07/03/2022 3:58 PM TABLET TECHNICIAN Inhaled Oxygen Concentration - - Weight 117.9 kg (260 lb) 07/03/2022 3:58 PM TABLET TECHNICIAN Height 162.6 cm (5' 4 ) 07/03/2022 3:58 PM TABLET TECHNICIAN Body Mass Index 44.63 07/03/2022 3:58 PM TABLET TECHNICIAN Procedures * LAB RESULTS ORDER(Performed 02/25/2023) * LAB RESULTS ORDER(Performed 02/25/2023) * EKG 12-LEAD(Performed 07/03/2022) Performed for Other chest pain * XR CHEST 2VW(Performed 07/03/2022) Performed for Other chest pain * CARDIAC RHYTHM STRIP ORDER(Performed 06/05/2022) * GROSS + MICRO EXAM (ILL)(Performed 06/04/2022) Performed for Gastroesophageal reflux disease, unspecified whether esophagitis present, Status postbariatric surgery * MI EGD FLEX TRANSORAL W BX SNGL OR [...] ORDERABLES * EKG 12-LEAD (07/03/2022 6:37 PM TABLET TECHNICIAN) Only the most recent of2 resultswithin the time period is included. Ventricular Rate 75 BPM [facility] Atrial Rate 75 BPM [facility] P-R Interval 164 ms [facility] QRS Duration ms 86 ms [facility] Q-T Interval ms 380 ms [facility] QTC Calculation (Bezet) 424 ms [facility] Calculated P [place] 29 degrees [facility] Calculated R [place] 14 degrees [facility] Calculated T [place] 28 degrees [facility] Interpretation EKG Normal sinus rhythm Normal ECG No previous ECGs available Confirmed by SAÚL HENDERSON MD ([id number]) on 07/05/2022 3:15:08 PM [facility] 07/03/2022 6:37 PM TABLET TECHNICIAN 07/05/2022 3:15 PM TABLET TECHNICIAN Chastity Almita Deng PA-C ECG ORDERABLES [facility] * XR CHEST PA AND LATERAL (07/03/2022 4:21 PM TABLET TECHNICIAN) Only the most recent of2 resultswithin the time period is included. Anatomical Region Laterality Modality Chest Radiographic Chanda ging 07/03/2022 4:30 PM TABLET TECHNICIAN Impressions 07/03/2022 4:30 PM TABLET TECHNICIAN IMPRESSION: No acute cardiopulmonary findings. > Interpreting Provider: Tram Rodríguez MD on 07/03/2022 4:30 PM Narrative 07/03/2022 4:30 PM TABLET TECHNICIAN PROCEDURE(s): XR CHEST 2VW; DATE AND TIME OF EXAM(s): 07/03/2022 4:22 PM; LOCATION: [facility] INDICATION(s): R07.89: Other chest pain. COMPARISON(s): None available. FINDINGS: The cardiomediastinal silhouette is normal. The pulmonary vasculature is unremarkable. The lungs are clear. There is no pleural effusion. There is no pneumothorax. The osseous structures are grossly unremarkable. Procedure Note Tram Rodríguez MD - 07/03/2022 PROCEDURE(s): XR CHEST 2VW; DATE AND TIME OF EXAM(s): 07/03/2022 4:22PM; LOCATION: [facility] INDICATION(s): R07.89: Other chest pain. COMPARISON(s): None available. FINDINGS: The cardiomediastinal silhouette is normal. The pulmonary vasculature is unremarkable. The lungs are clear. There is no pleural effusion. There is no pneumothorax. The osseous structures are grossly unremarkable. IMPRESSION: No acute cardiopulmonary findings. > Interpreting Provider: Tram Rodríguez MD on 07/03/2022 4:30 PM Radha Lara ASSEMBLER MOLDED FRAMES-SENIOR ANALYTICAL CHEMIST DIAGNOSTIC IMAGIN G ORDERABLES * CARDIAC RHYTHM STRIP ORDER (06/05/2022 12:47 PM TABLET TECHNICIAN) Narrative 06/05/2022 12:47 PM TABLET TECHNICIAN Ordered by an unspecified provider. Scanned Document CARDIAC SERVICES ORD ERABLES * GROSS + MICRO EXAM (ILL) (06/04/2022 11:12 AM TABLET TECHNICIAN) Case Report Surgical Pathology Report ? Case: [id number] ? Authorizing Provider: ??Irma Elizabeth MD ??Collected: ? 06/04/2022 11:12 AM ? Ordering Location: ? [facility] ?Received: ?06/05/2022 12:27 PM ? Pathologist: ? Jack Hernández MD ? Specimen: ?Antrum Biopsy, Antrum biopsy R/O H Pylori ? 06/06/2022 9:11 AM TABLET TECHNICIAN [facility] Final Diagnosis Gastric biopsies, antrum: Mild chronic gastritis, H&E sections negative for Helicobacter (see comment). Comment: Helicobacter pylori stain is pending results will follow in an addendum. 06/06/2022 9:[address] [facility] Microscopic Description and Comment Microscopic examination is performed and substantiates the above diagnosis. 06/06/2022 9:[address] [facility] Gross Description The requisition and specimen(s) are identified with the patient's name (Jazmyn San), MRN, and . Received in formalin, specimen antrum biopsy R/O H pylori , are 2 malhotra-pink tissues, 0.2 x 0.2 x 0.2 cm and 0.4 x 0.3 x 0.3 cm. The specimen is submitted in toto in cassette A1. AW 06/06/2022 9:[address] [facility] Disclaimer The performance characteristics of all immunohistochemical and indirect immunofluorescence stains (if any) cited in this report were determined by the Histopathology Laboratory of [facility]. Some of these tests were developed [...] H&E slides and special stains prepared at [facility], [place]. [address] (CLIA# [id number]) unless otherwise specified. This case was interpreted by the [facility] Department of Pathology. When applicable, select reference laboratory testing is performed at the [facility], [address] [place] [address]. 06/06/2022 9:[address] [facility] Embedded Images 06/06/2022 9:[address] [facility] Pathology/Cytology GASTRIC ANTRAL BIOPSY SPECIMEN / Unknown 06/04/2022 11:12 AM TABLET TECHNICIAN 06/05/2022 12:27 PM TABLET TECHNICIAN Comment:Pre-op diagnosis: Gastroesophageal reflux disease, unspecified whether esophagitis present [K21.9] Status post bariatric surgery [Z98.84] Irma Elizabeth MD LAB - PATHOLOGY/ CYTOLOGY ORDERABLES [facility] [address] * CT LUMBAR SPINE WO CONTRAST (04/20/2022 3:02 PM CDT) Anatomical Region Laterality Modality Spine Computed Tomogra phy 04/20/2022 3:01 PM CDT Impressions 04/20/2022 9:25 PM CDT IMPRESSION: 1.No evidence of acute fracture in the lumbar spine. 2.Diffuse disc bulge at L3-L4, L4-L5 and L5-S1, without central canal or neuroforaminal stenosis. Report dictated by Chas Vega MD (radiology practitioner assistant) I, Syed Cassidy MD have personally reviewed [...] stenosis. Report dictated by Chas Vega MD (radiology practitioner assistant) I, Syed Cassidy MD have personally reviewed and interpreted this examination/study. > Interpreting Provider: Syed Cassidy MD on 04/20/2022 9:25 PM Sanjuanita Mix ASSEMBLER MOLDED FRAMES-SENIOR ANALYTICAL CHEMIST CT ORDERABLES * (ABNORMAL) URINALYSIS W/MICROSCOPIC NO CULTURE (04/20/2022 1:22 PM CDT) Color UA Yellow Straw, Yellow 04/20/2022 1:33 PM CDT [facility] Clarity UA Slt Cloudy(A) Clear 04/20/2022 1:33 PM CDT [facility] Specific [place] UA 1.021 1.005 - 1.030 04/20/2022 1:33 [...] 04/20/2022 1:22 PM CDT 04/20/2022 1:[address] [facility] - 04/20/2022 1:33 PM CDT Sanjuanita Mix ASSEMBLER MOLDED FRAMES-SENIOR ANALYTICAL CHEMIST LAB - URINALYS IS ORDERABLES [facility] [address] [place] [id number] [phone] * CBC W AUTO DIFFERENTIAL (04/20/2022 1:22 PM [facility]) Only the most recent of9 resultswithin [...] - 13.0 % 04/20/2022 1:29 PM CDT [facility] Eosinophils % 1.5 0.0 - 6.0 % 04/20/2022 1:29 PM CDT [facility] Basophil % 0.5 0.0 - 2.0 % 04/20/2022 1:29 PM CDT [facility] Neutrophils Absolute 5.04 1.60 - 7.00 10? 3 /uL 04/20/2022 1:29 PM CDT [facility] Lymphocyte Absolute 1.64 1.10 - 3.90 10? 3 /uL 04/20/2022 1:29 PM CDT [facility] Monocytes Absolute 0.45 0.26 - 1.07 10? 3 /uL 04/20/2022 1:29 PM T [facility] Eosinophils Absolute 0.11 0.00 - 0.47 10? 3 /uL 04/20/2022 1:29 PM CDT [facility] Basophils Absolute 0.04 0.00 - 0.08 10? 3 /uL 04/20/2022 1:29 PM CDT [facility] Immature Granulocytes % 0.3 0.0 - 1.0 % 04/20/2022 1:29 PM CDT [facility] Immature Granulocytes Absolute 0.02 04/20/2022 1:29 PM [facility] Blood BLOOD SPECIMEN / Unknown Venipuncture / Unknown 04/20/2022 1:22 PM CDT 04/20/2022 1:26 PM CDT Sanjuanita Mix ASSEMBLER MOLDED FRAMES-SENIOR ANALYTICAL CHEMIST LAB - HEMATOLO GY ORDERABLES [facility] [address] [place] [address], [facility] [phone] * (ABNORMAL) COMPREHENSIVE METABOLIC PANEL (04/20/2022 1:22 PM CDT) Only the most recent of3 resultswithin the time period is included. BUN 13 7 - 26 mg/dL 04/20/2022 1:55 PM CDT [facility] Creatinine 0.74 0.56 - 0.96 mg/dL 04/20/2022 [...] CDT 04/20/2022 1:26 PM CDT Sanjuanita Mix ASSEMBLER MOLDED FRAMES-SENIOR ANALYTICAL CHEMIST LAB - CHEMISTR Y ORDERABLES Performing Organization Address [facility]/ZIP Co de Phone Number [facility] [address] [place] [address], [place] [phone] * HCG BETA BLOOD QUANTITATIVE (04/20/2022 1:22 PM CDT) [facility] Beta-hCG Total Quantitative <3 mIU/mL 04/20/2022 2:01 PM CDT [facility] Comment: This assay is cleared for use [...] 04/20/2022 1:26 PM CDT Sanjuanita Mix APRN-SENIOR ANALYTICAL CHEMIST LAB - CHEMISTR Y ORDERABLES Performing Organization Address [facility] Co de Phone Number [address] [address], [place] [phone] * T4 FREE ICMA (01/31/2020 2:04 PM CDT) [facility] T4 Free 0.94 ng/dL [facility] ACCOUNT BILL Comment: Reference Range: >=20y: 0.82 - 1.77 Blood BLOOD SPECIMEN / Unknown 01/31/2020 2:04 PM CDT 01/31/2020 Narrative Resulting Agency Comment Lab Testing performed at: [facility] [address] [place] [address] ??[facility] [phone] Addie Jennings MD LAB - CHEMISTRY OR DERABLES [facility] ACCOUNT BILL [address] [place] [address] * TSH ICMA (01/31/2020 2:04 PM CDT) TSH ICMA 2.4 uU/mL [facility] ACCOUNT BILL Comment: Reference Range: Non- Adult 0.450-4.500 First Trimester 0.100-4.000 Second Trimester 0.200-4.000 Third Trimester 0.300-4.500 Blood BLOOD SPECIMEN / Unknown 01/31/2020 2:04 PM CDT 01/31/2020 Narrative Resulting Agency Comment Lab Testing performed at: [facility] [address] [place] [address] ??[facility] [phone] Addie Jennings MD LAB - CHEMISTRY OR DERABLES Performing Organization Address City/[facility] Co de Phone Number [facility] ACCOUNT BILL [address] [place] [address] * TSH (01/03/2019 1:40 PM CDT) Only the most recent of4 resultswithin the time period is included. TSH 1.7600 0.358 - 3.74 uIU/mL [facility] INSURANCE BILL Blood BLOOD SPECIMEN / Unknown 01/03/2019 1:40 PM CDT 01/03/2019 Narrative Resulting Agency Comment Lab Testing performed at: [address] ??[facility] [phone] Addie Jennings MD LAB - CHEMISTRY OR DERABLES Performing Organization Address City/[facility] Co de Phone Number [facility] INSURANCE BILL [address] [place] [address] * VITAMIN D 25-HYDROXY (12/28/2018 7:38 AM [...] Resulting Agency Comment Lab Testing performed at: [address] ??[facility] [phone] Lottie Verduzco ASSEMBLER MOLDED FRAMES-SENIOR ANALYTICAL CHEMIST LAB - CHEMI STRY ORDERABLES Performing Organization Address [facility] de Phone Number [facility] ACCOUNT BILL [address] [place] [address] * VITAMIN B12 FOLATE PANEL (12/28/2018 7:38 AM CDT) Only the most recent of2 resultswithin the time period is included. Vitamin B12 344 213 - 816 pg/mL [facility] ACCOUNT BILL Folate 11.0 7.0 - 31.4 ng/mL [facility] ACCOUNT BILL Comment:FASTING Blood BLOOD SPECIMEN / Unknown 12/28/2018 7:38 AM CDT 12/28/2018 Narrative Resulting Agency Comment Lab Testing performed at: [address] ??[facility] [phone] Lottie Verduzco ASSEMBLER MOLDED FRAMES-SENIOR ANALYTICAL CHEMIST LAB - CHEMI STRY ORDERABLES Performing Organization Address [facility] de Phone Number [facility] ACCOUNT BILL [address] [place] [address] * (ABNORMAL) LIPID PROFILE (12/28/2018 7:38 AM [...] Resulting Agency Comment Lab Testing performed at: [address] ??[facility] [phone] Lottie Verduzco ASSEMBLER MOLDED FRAMES-SENIOR ANALYTICAL CHEMIST LAB - CHEMI STRY ORDERABLES [facility] ACCOUNT BILL [address] [place] [address] * US SOFT TISSUE HEAD NECK (09/21/2018) Anatomical Region Laterality Modality Head Ultrasound 09/21/2018 Impressions 09/21/2018 THYROID ULTRASOUND ?? DATE: 09/21/2018 ?? DIESEL MAINTENANCE TECHNICIAN: Dr. Jennings ?? 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, goiter [...] (ABNORMAL) THYROID PEROXIDASE ANTIBODY (06/25/2018 9:13 AM TABLET TECHNICIAN) Thyroid Peroxidase TPO Antibody >600(H) 0 - 34 IU/mL [facility] ACCOUNT BILL Blood BLOOD SPECIMEN / Unknown 06/25/2018 9:13 AM TABLET TECHNICIAN 06/25/2018 Narrative Resulting Agency Comment [facility] [address] ??[facility] [phone] Lottie Verduzco ASSEMBLER MOLDED FRAMES-SENIOR ANALYTICAL CHEMIST LAB - CHEMI STRY ORDERABLES [facility] ACCOUNT BILL [address] [place] [address] * T4 FREE (06/25/2018 9:13 AM TABLET TECHNICIAN) Only the most recent of2 resultswithin the time period is included. T4 Free 1.01 0.65 - 1.34 ng/dL [facility] ACCOUNT BILL Blood BLOOD SPECIMEN / Unknown 06/25/2018 9:13 AM TABLET TECHNICIAN 06/25/2018 Narrative Resulting Agency Comment [facility] [address] [facility] ??[facility] [phone] Lottie Verduzco APRN-SENIOR ANALYTICAL CHEMIST LAB - CHEMI STRY ORDERABLES Performing Organization Address City/[facility]/ZIP Co de Phone Number [facility] ACCOUNT BILL [address] [place] [address] * (ABNORMAL) IRON + TIBC + FERRITIN (06/25/2018 9:12 AM TABLET TECHNICIAN) TIBC 361 250 - 450 ug/dL [facility] ACCOUNT BILL UIBC 314 131 - 425 ug/dL [facility] ACCOUNT BILL Iron 47 27 - 159 ug/dL [facility] ACCOUNT BILL Iron Saturation 13(L) 15 - 55 % [facility] ACCOUNT BILL Ferritin 9(L) 15 - 150 ng/mL [facility] ACCOUNT BILL Blood BLOOD SPECIMEN / Unknown 06/25/2018 9:12 AM TABLET TECHNICIAN 06/25/2018 Narrative Resulting Agency Comment [facility] [address] ??[facility] [phone] Lottie Verduzco ASSEMBLER MOLDED FRAMES-SENIOR ANALYTICAL CHEMIST LAB - CHEMI STRY ORDERABLES [facility] ACCOUNT BILL [address] [address] * IMAGING RADIOLOGY XRAY RESULTS ORDER (06/18/2018) Only the most recent of3 resultswithin the time period is included. Anatomical Region Laterality Modality Other Scanned Document IMAGING * US BREAST RIGHT LTD (05/07/2018 10:11 AM CDT) Anatomical Region Laterality Modality Breast Right Ultrasound 05/07/2018 9:36 AM CDT Addenda Addendum by Mellisa Drake MD on 06/04/2018 11:19 AM TABLET TECHNICIAN Previous mammograms from [facility] on 04/10/2016 and 03/27/2016 are [...] participate in the care of your patient. [facility] utilizes WePow as a reminder system to notify patients [...] utilized. PRIOR: Previous mammogram was performed at [facility]. This was not available for review [...] utilized. PRIOR: Previous mammogram was performed at [facility]. This was not available for review [...] participate in the care of your patient. [facility] utilizes WePow as a reminder system to notify patients of their next recommended mammogram. Reading Radiologist: Mellisa Drake MD on 05/07/2018 at 10:53 AM Mellisa Drake MD US ORDERABLES * ALIZE DIAG DIRECT DIG IMAGE BILATERAL G0204 (05/07/2018 9:24 AM CDT) Anatomical Region Laterality Modality Breast Bilateral Mammography 05/07/2018 9:36 AM CDT Addenda Addendum by Mellisa Drake MD on 06/04/2018 11:19 AM TABLET TECHNICIAN Previous mammograms from [facility] on 04/10/2016 and 03/27/2016 are [...] of your patient. [facility] utilizes WePow as a reminder system to notify patients [...] utilized. PRIOR: Previous mammogram was performed at [facility]. This was not available for review [...] utilized. PRIOR: Previous mammogram was performed at [facility]. This was not available for review [...] participate in the care of your patient. [facility] utilizes WePow as a reminder system to notify patients [...] BLOOD ??385 ?mg/dL ?240-450 SATURATION % BLOOD ([facility]) ? 5 ?% ?20-50 ?L Blood BLOOD SPECIMEN / Unknown 10/27/2017 1:21 PM CDT 10/27/2017 Narrative Resulting Agency Comment [facility] [address] [place] [address] ??[facility] [phone] Maurice Overton MD LAB - CHEMISTRY MEL MARTINES [facility] ACCOUNT BILL [address] [place] [address] * GROSS + MICRO EXAM (04/05/2010 5:00 [...] 350 grams. Cassettes A and B ?? Child Specialist sections of the placental disc. Cassette C ?? Child Specialist sections of umbilical cord and membranes. [facility] Microscopic Exam ? Microscopic [...] membranes with ?no pathologic changes SS/na GM Executive Administrative Assistant ? na Pathologist ?Nahomi Parnell MD [place]. ?04/08/2010 1527 <1> CPT code ? 54607 MISCELLANEOUS SAMPLES / Unknown 04/05/2010 5:00 AM [...] DO LAB - BLOOD GASES OR DERABLES [facility] [address] [place] [address] * (ABNORMAL) BLOOD GASES CORD VENOUS (04/05/2010 3:53 AM CDT) pH Cord Venous 7.289 7.18 - 7.33 [facility] pCO2 Cord Venous 62.0(H) 43 - 55 mm Hg [facility] pO2 Cord Venous 26.5 22 - 33 mm Hg [facility] Base Excess Cord Venous 0.8 -2.0 - 2.0 [facility] HCO3 Cord Venous 29.1 mmol/L [facility] CORD BLOOD SPECIMEN / Unknown 04/05/2010 3:53 AM CDT 04/05/2010 3:55 AM CDT Apple Sullivan DO LAB - BLOOD GASES OR DERABLES Performing Organization Address City/State/[facility] Co de Phone Number [facility] [address] [place] [address] * XR CHEST 1VW PORTABLE (04/03/2010 8:40 [...] included. ABO Rh O Pos SEE BELOW [facility] Comment: Weak D testing is not performed at [facility] Antibody Screen Neg [facility] Number of Units 4 [facility] Previous History Check Done Historical blood type on record, type verification complete. [facility] BLOOD SPECIMEN / Unknown 04/02/2010 5:36 AM CDT 04/02/2010 5:52 AM CDT Leyla Peres MD LAB - BLOOD BANK O RDERABLES Performing Organization Address [facility] de Phone Number [facility] [address] [place] [address] * (ABNORMAL) PT PTT PANEL (04/02/2010 5:36 AM CDT) Only the most recent of4 resultswithin the time period is included. PT 9.3(L) 9.4 - 11.4 seconds [facility] INR 0.88 SEE BELOW [facility] Comment: Conventional anticoagulation ?? 2.0-3.0 Intensive anticoagulation ?? 2.5-3.5 PTT 26.0 24.0 - 33.0 seconds [facility] BLOOD SPECIMEN / Unknown 04/02/2010 5:36 AM CDT 04/02/2010 5:50 AM CDT Amari Huston Jr., MD LAB - COA CHEPELATION ORDERABLES Performing Organization Address [facility] de Phone Number [facility] [address] [place] [address] * FIBRINOGEN ACTIVITY (04/02/2010 5:36 AM CDT) Only the most recent of5 resultswithin the time period is included. Fibrinogen 342 150 - 450 mg/dl [facility] BLOOD SPECIMEN / Unknown 04/02/2010 5:36 AM CDT 04/02/2010 5:50 AM CDT Amari Huston Jr., MD LAB - COA CHEPELATION ORDERABLES Performing Organization Address [facility] de Phone Number [facility] [address] [place] [address] * MRI PELVIS NON CONTRAST (04/01/2010 9:30 [...] Region Laterality Modality Other Buzz Doe MD [facility] ORDERABLES * (ABNORMAL) URINALYSIS ROUTINE AUTO (03/30/2010 3:00 PM CDT) Source Clean Catch [facility] Color UA Yellow [facility] Character UA Clear [facility] Glucose UA NEGATIVE NEGATIVE mg/dl [facility] Bilirubin UA NEGATIVE NEGATIVE [facility] Ketone UA 40(H) NEGATIVE mg/dl [facility] Specific [place] UA >=1.030(H) 1.003 - 1.030 [facility] Blood UA LARGE(H) NEGATIVE [facility] pH UA 5.5 5.0 - 9.0 [facility] Protein UA NEGATIVE NEGATIVE-TR VICKEY mg/dl [facility] Urobilinogen UA 0.2 0.2 - 1.0 Kendrick Units/dl [facility] Nitrite UA NEGATIVE NEGATIVE [facility] Leukocyte UA NEGATIVE NEGATIVE [facility] WBC UA None Seen 0 - 2 HPF [facility] RBC UA 1-3 None Seen HPF [facility] Epithelial Cell UA 1-2 None Seen HPF [facility] URINE SPECIMEN OBTAINED BY CLEAN CATCH PROCEDURE / Unknown 03/30/2010 3:00 PM CDT 03/30/2010 3:28 PM CDT Yoselin Rudd MD LAB - URINALYSIS OR DERABLES Performing Organization Address [facility] Co de Phone Number [facility] [address] [place] [address] * CHLAMYDIA + GC DNA PROBE AMPLIFIED (03/30/2010 3:00 PM CDT) Chlamydia trachomatis Amplified Probe NEGATIVE NEGATIVE [facility] GC Amplified Probe NEGATIVE NEGATIVE [facility] Comment Amplified Probe [facility] Comment: ? Results based on detection/no detection of ribosomal ? RNA by amplified method. PART OF UTERINE CERVIX / Unknown 03/30/2010 3:00 PM CDT 03/30/2010 3:42 PM CDT Yoselin Rudd MD LAB - MICROBIOLOGY ORDERABLES Performing Organization Address [facility] [facility] Co de Phone Number [facility] [address] [place] [address] * CULTURE URINE (03/30/2010 3:00 PM CDT) Report [facility] Comment: Final - CULTURE <10,000 colonies/ml Mixed gram positive abram. Org 1 ?<10,000 colonies/ml ?gram positive cocci ?morphologically identical to ?culture done ??03/30/10 ?(Group B beta strep) ? URINE SPECIMEN OBTAINED BY CLEAN CATCH PROCEDURE / Unknown 03/30/2010 3:00 PM CDT 03/30/2010 3:42 PM CDT Yoselin Rudd MD LAB - MICROBIOLOGY ORDERABLES [facility] [address] [place] [address] * CULTURE STREP B (03/30/2010 3:00 PM CDT) Report [facility] Comment: Final - CULTURE BETA [...] Yoselin Rudd MD LAB - MICROBIOLOGY ORDERABLES [facility] [address] [place] [address] * PTT (03/30/2010 3:00 PM CDT) PTT 26.4 24.0 - 33.0 seconds [facility] BLOOD SPECIMEN / Unknown 03/30/2010 3:00 PM CDT 03/30/2010 5:48 PM CDT Yvonne Pickard MD LAB - COAGULATION OR DERABLES Performing Organization Address [facility] Co de Phone Number [facility] [address] [place] [address] * (ABNORMAL) PT-INR (03/30/2010 3:00 PM CDT) PT 9.3(L) 9.4 - 11.4 seconds [facility] INR 0.88 SEE BELOW [facility] Comment: Conventional anticoagulation ?? 2.0-3.0 Intensive anticoagulation ?? 2.5-3.5 BLOOD SPECIMEN / Unknown 03/30/2010 3:00 PM CDT 03/30/2010 3:35 PM CDT Yoselin Rudd MD LAB - COAGULATION O RDERABLES Performing Organization Address [facility] Co de Phone Number [facility] [address] [place] [address] * DRUG SCREEN TRIAGE PANEL (03/30/2010 3:00 PM CDT) Phencyclidine Screen Urine Negative Negative ng/ml [facility] Benzodiazepines Screen Urine Negative Negative ng/ml [facility] Cocaine Screen Urine Negative Negative ng/ml [facility] Amphetamines Screen Urine Negative Negative ng/ml [facility] Cannabinoids Screen Urine Negative Negative ng/ml [facility] Opiate Screen Urine Negative Negative ng/ml [facility] Barbiturates Screen Urine Negative Negative ng/ml [facility] URINE / Unknown 03/30/2010 3 :00 PM CDT 03/30/2010 3:29 PM CDT Yoselin Rudd MD LAB - URINE SHIRT SEWER RY ORDERABLES Performing Organization Address [facility] Co de Phone Number [facility] [address] [place] [id number] Care Teams Industrial Education Instructor Relationship Specialty Start Date End Date Thang Heck MD [address] [place] [address] [facility] - General 06/10/22 Addie Jennings MD [address] [facility] [address] [place] [address] [facility] 01/31/20
--- OUTSIDE RECORDS SUMMARY | 2024-08-05 13:05 | XMS_ITS | Clinical Summary ---
Author Organization [facility] Address [address] [place] [phone] Phone Care Team Providers Care Parquetry Layer Name Role Phone Chaparro Harris MD Primary Care Provider [phone] Allergies Active Allergy Reactions Criticality Noted Date [...] on file Legal Sex Female 5:58 AM ROLL OR TAPE EDGE MACHINE OPERATOR Gender Identity Not on file [...] cm (5' 4 ) 07/24/2022 12:56 PM ROLL OR TAPE EDGE MACHINE OPERATOR Body Mass Index 44.29 07/24/2022 12:56 PM ROLL OR TAPE EDGE MACHINE OPERATOR Plan of Treatment Upcoming Encounters Date Type Department Care Team (Late st Contact Info) Description 10/05/2024 3:45 PM CDT Office Visit [facility] Oncology and Hematology [facility] [address] [facility] [address] [place] [address] Codey Angeles MD [address] [facility] [address] [place] [address] Health Maintenance Due Date Last [...] OR WO CAD Routine 06/04/2022 2:53 PM ROLL OR TAPE EDGE MACHINE OPERATOR Mastodynia from Last 3 Months or Most Recently Relevant to Health Maintenance Results * MAMMO DIAG BILAT 3D IZZY W OR WO CAD (06/04/2022 2:53 PM ROLL OR TAPE EDGE MACHINE OPERATOR) Anatomical Region Laterality Modality Breast Bilateral Mammography 06/04/2022 2:53 PM ROLL OR TAPE EDGE MACHINE OPERATOR Impressions 06/04/2022 3:09 PM ROLL OR TAPE EDGE MACHINE OPERATOR IMPRESSION: No evidence of malignancy. RECOMMENDATIONS: Bilateral annual screening mammogram. OVERALL FINAL ASSESSMENT: BI-RADS CATEGORY 1: Negative DICTATION LOCATION: [facility] Narrative 06/04/2022 3:09 PM ROLL OR TAPE EDGE MACHINE OPERATOR MAMMOGRAPHY DIGITAL DIAGNOSTIC BILATERAL 3-D [...] ASSESSMENT: BI-RADS CATEGORY 1: Negative DICTATION LOCATION: [facility] Arun Reina MD MAMMO ORDERABLES Final Result from Last 3 Months or Most Recently Relevant to Health Maintenance Insurance [facility] MEDICAID [facility] MEDICAID Care Teams Parquetry Layer Relationship Specialty Start Date End Date Chaparro Harris MD [address] [place] [address] PCP - General Family Practice 02/27/23
--- OUTSIDE RECORDS SUMMARY | 2024-08-05 13:05 | XMS_ITS ---
Author Organization [facility] Address [address] [facility] [address] [place] [address] Phone Care Team Providers Care Senior Python Developer Name Role Phone Provider, None Primary Care Provider Unavailblank e [facility] Status:Enrolled (Active) Start date:08/03/2024 Enrollment date:08/03/2024 Related social drivers of health:Intimate Partner Violence, Social Connections, Alcohol Use, Financial Resource Strain, Depression, Stress, Physical Activity, Food Insecurity, Transportation Needs, Housing Stability, Utilities Continued Care and Services Coordination
--- OUTSIDE RECORDS SUMMARY | 2024-08-05 13:05 | XMS_ITS | Encounter Summary ---
Author Organization [employer] Care Team Providers Care Election Watcher Name Role Phone Provider, None Primary Care [...] Sex Assigned at Female 05/23/2024 7:05 PM DRY MILL WORKER Legal Sex Female 1:02 PM DRY MILL WORKER Gender Identity Female 05/23/2024 7:05 PM DRY MILL WORKER Sexual Orientation Not on file documented as of this encounter Plan of Treatment Not on file documented as of this encounter Visit Diagnoses Not on filedocumented in this encounter Care Teams Election Watcher Relationship Specialty Start Date End Date Provider, None VENKAT PCP - General 08/05/22 documented as of this encounter
--- OUTSIDE RECORDS SUMMARY | 2024-08-05 13:05 | XMS_ITS | Encounter Summary ---
Author Organization [facility] Address [address] [place] [address] Phone Care Team Providers Care Box Attacher Name Role Phone Provider, None Primary Care Provider Unavailabl e Reason for Visit * Reason Comments Abdominal Pain Encounter Details Date Type Department Care Team ([facility] st Contact Info) Description 08/04/2024 6:43 PM STRATEGIC MARKETING ASSOCIATE - 08/04/2024 9:25 PM STRATEGIC MARKETING ASSOCIATE Emergency [facility] Emergency [address] [place] [address] Sandy Leyva, PRECISION OPTICS TECHNICIAN, GLOBAL CREATIVE CHAIRMAN [address] [place] [address] Generalized abdominal pain Discharge Disposition: Discharged to [...] Sex Assigned at Female 05/23/2024 7:05 PM STRATEGIC MARKETING ASSOCIATE Legal Sex Female 1:02 PM STRATEGIC MARKETING ASSOCIATE Gender Identity Female 05/23/2024 7:05 PM STRATEGIC MARKETING ASSOCIATE Sexual Orientation Not on file documented as of this encounter Last Filed Vital Signs Vital Sign Reading Time Taken Comments Blood Pressure 138/91 08/04/2024 9:24 PM STRATEGIC MARKETING ASSOCIATE Pulse 97 08/04/2024 9:24 PM STRATEGIC MARKETING ASSOCIATE Temperature 36.7 ??C (98.1 ??F) 08/04/2024 6:39 PM CS T Respiratory Rate 14 08/04/2024 9:24 PM STRATEGIC MARKETING ASSOCIATE Oxygen Saturation 100% 08/04/2024 9:24 PM STRATEGIC MARKETING ASSOCIATE Inhaled Oxygen Concentration - - Weight 117.9 kg (260 lb) 08/04/2024 6:39 PM STRATEGIC MARKETING ASSOCIATE Height 165.1 cm (5' 5 ) 08/04/2024 6:39 PM STRATEGIC MARKETING ASSOCIATE Body Mass Index 43.27 08/04/2024 6:39 PM STRATEGIC MARKETING ASSOCIATE documented in this encounter Discharge Instructions * Discharge Instructions* Sandy Leyva APRN, CNP - 08/04/2024 9:08 PM STRATEGIC MARKETING ASSOCIATE Follow-up with primary care physician. Return to the ED with worsening symptoms. TEGIC MARKETING ASSOCIATE TEGIC MARKETING ASSOCIATE documented in this encounter Medications at Time [...] responsible libertarian. SL D/C'edwith Rodolfo cath intact. TEGIC MARKETING ASSOCIATE * Eileen Carrera RN - 08/04/2024 8:46 PM CST Report received from Karen MUNOZ TEGIC MARKETING ASSOCIATE * Karen Hager RN - 08/04/2024 8:30 PM CST Patient is resting in room with call light at bedside. Patient informed about wait time and verbalizes understanding. Patient denies needs at this time and verbalizes understanding that RN will complete hourly rounding. TEGIC MARKETING ASSOCIATE * Karen Hager RN - 08/04/2024 7:30 PM CST Patient is resting in room with call light at bedside. Patient informed about wait time and verbalizes understanding. Patient denies needs at this time and verbalizes understanding that RN will complete hourly rounding. TEGIC MARKETING ASSOCIATE * Sandy Leyva APRN, ARCHIE - 08/04/2024 [...] Past Surgical History: Procedure Laterality Date SECTION 62247 LAPAROSCOPY GASTRIC RESTRICTIVE PX LONGITUDINAL GASTRECTOMY SLEEVE [...] Range POC URINE Negative POC URINE CONTROL Front Desk Monitor Pass Comprehensive Metabolic Panel (Cmp) [id number] Collection Time: 08/04/24 7:26 PM Result Value [...] Skip Ta M.D. AG: GERMÁN Report ID: [id number] Reading Location: [id number] Labs Reviewed URINALYSIS REFLEX IF INDICATED BY [...] created for panel order CBC with Diff [id number]. Procedure Abnormality Status --------- ------ CBC with Auto Differential[[id number]] Abnormal Final result Please view results for these tests on the individual orders. EXTRA TUBES Narrative: The following orders were created for panel order Extra Tubes. Procedure Abnormality Status --------- ------ Blue Top Tube[[id number]] Final result Gold Top Tube[[id number]] Final result Please view results for these tests on the individual orders. POCT URINE HCG () BLUE TOP TUBE GOLD TOP TUBE CT RENAL STONE STUDY (ABDOMEN AND PELVIS W/O CONTRAST) Final Result IMPRESSION: 1. No gross CT finding to explain the patient's symptoms. 2. Prominent uterus. Ascencion of gas within the lower uterine segment, likely due to reflux. CBC with Diff [id number] Final Result Comprehensive Metabolic Panel (Cmp) [id number] Final Result Extra Tubes Final Result URINALYSIS [...] Colt Lozano MD at 08/05/2024 3:30 AM STRATEGIC MARKETING ASSOCIATE TEGIC MARKETING ASSOCIATE TEGIC MARKETING ASSOCIATE * Asuncion Guaman RN - 08/04/2024 6:41 PM CST Pt ambulatory to triage with c/o generalized abdominal pain that radiates to the back. Also reportspain with urination. Pt reports having a pelvic ultrasound Tracy which came back negative. DeniesGI hx. Hx of kidney stones in the past. Normal bowel movements. TEGIC MARKETING ASSOCIATE documented in this encounter Miscellaneous Notes * PatientPass Patient Instructions - Sandy Leyva APRN, ARCHIE - 08/04/2024 9:08 PM CST Images from the original note were not included. Patient Education Table of Contents Abdominal Pain, Adult Flank Pain, Adult To view videos and all your education online visit, [email or web address] or scan this QR code with your [...] Follow these instructions at home: Medicines Take [id number] and prescription medicines only as told by [...] 2006-04-01 Document Updated: 2023-04-08 Document Reviewed: 2023-04-08 [employer] Patient Education ? 2023 [employer] Flank Pain, Adult Flank pain is [...] Rest as told by your doctor. Take [id number] and prescription medicines only as told by [...] 2009-03-31 Document Updated: 2021-09-02 Document Reviewed: 2021-09-02 [employer] Patient Education ? 2023 [employer]. TEGIC MARKETING ASSOCIATE documented in this encounter Plan of Treatment Not on file documented as of this encounter Procedures Procedure Name Priority Date/Time Associated Diagnosis Comments CT RENAL STONE STUDY (ABDOMEN AND PELVIS W/O CONTRAST) Stat with Interpretation 08/04/2024 7:54 PM STRATEGIC MARKETING ASSOCIATE EXTRA TUBES STAT 08/04/2024 7:26 PM STRATEGIC MARKETING ASSOCIATE GOLD TOP TUBE STAT 08/04/2024 7:26 PM STRATEGIC MARKETING ASSOCIATE BLUE TOP TUBE STAT 08/04/2024 7:26 PM STRATEGIC MARKETING ASSOCIATE CBC WITH AUTO DIFFERENTIAL STAT 08/04/2024 7:26 PM STRATEGIC MARKETING ASSOCIATE CMP (COMPREHENSIVE METABOLIC PANEL) STAT 08/04/2024 7:26 PM STRATEGIC MARKETING ASSOCIATE COMPLETE BLOOD COUNT (CBC) WITH DIFF STAT 08/04/2024 7:26 PM STRATEGIC MARKETING ASSOCIATE POCT URINE HCG () STAT 08/04/2024 6:50 PM STRATEGIC MARKETING ASSOCIATE URINALYSIS REFLEX IF INDICATED BY ABNORMAL RESULTS STAT 08/04/2024 6:46 PM STRATEGIC MARKETING ASSOCIATE documented in this encounter Results * CT RENAL STONE STUDY (ABDOMEN AND PELVIS W/O CONTRAST) (08/04/2024 7:54 PM STRATEGIC MARKETING ASSOCIATE) Anatomical Region Laterality Modality Abdomen N/A Computed Tomogra phy 08/04/2024 8:07 PM STRATEGIC MARKETING ASSOCIATE Impressions 08/04/2024 8:09 PM STRATEGIC MARKETING ASSOCIATE IMPRESSION: ?? 1. ?? No gross CT finding to explain the patient's symptoms. 2. ?? Prominent uterus. ??Ascencion of gas within the lower uterine segment, likely due to reflux. Narrative 08/04/2024 8:09 PM STRATEGIC MARKETING ASSOCIATE EXAM DESCRIPTION: ?? CT RENAL STONE STUDY [...] PM T: ??08/04/2024 8:07 PM Report ID: [id number] Reading Location: ??[id number] Procedure Note Skip Ta MD - 08/04/2024 [...] Skip Ta M.D. AG: GERMÁN Report ID: [id number] Reading Location: [id number] IMPRESSION: 1. No gross CT finding to explain the patient's symptoms. 2. Prominent uterus. Ascencion of gas within the lower uterine segment, likely due to reflux. Sandy Leyva APRN, GLOBAL CREATIVE CHAIRMAN IMG CT ORDERABLES Fin al Result * Gold Top Tube (08/04/2024 7:26 PM STRATEGIC MARKETING ASSOCIATE) Blood No Phlebotomy Charged / Unknown 08/04/2024 7:26 PM STRATEGIC MARKETING ASSOCIATE 08/04/2024 7:38 PM STRATEGIC MARKETING ASSOCIATE us Sandy Leyva PRECISION OPTICS TECHNICIAN, GLOBAL CREATIVE CHAIRMAN CHEMISTRY ORDERABLES Final Result [facility] [address] [place] [address] * Blue Top Tube (08/04/2024 7:26 PM STRATEGIC MARKETING ASSOCIATE) Blood No Phlebotomy Charged / Unknown 08/04/2024 7:26 PM STRATEGIC MARKETING ASSOCIATE 08/04/2024 7:38 PM STRATEGIC MARKETING ASSOCIATE us Sandy Leyva PRECISION OPTICS TECHNICIAN, GLOBAL CREATIVE CHAIRMAN HEMATOLOGY ORDERABLES Final Result [facility] [address] [place] [address] * (ABNORMAL) CBC with Auto Differential (08/04/2024 7:26 PM STRATEGIC MARKETING ASSOCIATE) WBC 6.97 4.00 - 12.00 10(3)/mcL 08/04/2024 7:40 PM STRATEGIC MARKETING ASSOCIATE [facility] RBC 4.46 3.80 - 5.30 10(6)/mcL 08/04/2024 7:40 PM STRATEGIC MARKETING ASSOCIATE [facility] HEMOGLOBIN (HGB) 11.5(L) 12.0 - 15.8 g/dL 08/04/2024 7:40 PM STRATEGIC MARKETING ASSOCIATE [facility] HEMATOCRIT (HCT) 36.2 36.0 - 47.0 % 08/04/2024 7:40 PM STRATEGIC MARKETING ASSOCIATE [facility] MCV 81.2(L) 82.0 - 96.0 fL 08/04/2024 7:40 PM STRATEGIC MARKETING ASSOCIATE [facility] MCH 25.8(L) 26.0 - 34.0 pg 08/04/2024 7:40 PM STRATEGIC MARKETING ASSOCIATE [facility] MCHC 31.8 31.0 - 36.0 g/dL 08/04/2024 7:40 PM STRATEGIC MARKETING ASSOCIATE [facility] PLATELET COUNT 348 140 - 440 10(3)/mcL 08/04/2024 7:40 PM STRATEGIC MARKETING ASSOCIATE [facility] RDW 16.7(H) 11.8 - 15.5 % 08/04/2024 7:40 PM STRATEGIC MARKETING ASSOCIATE [facility] MPV 9.9 9.7 - 12.4 fL 08/04/2024 7:40 PM STRATEGIC MARKETING ASSOCIATE [facility] NEUTROPHILS 63.8 47.0 - 73.0 % 08/04/2024 7:40 PM STRATEGIC MARKETING ASSOCIATE [facility] LYMPHOCYTES 27.3 18.0 - 42.0 % 08/04/2024 7:40 PM STRATEGIC MARKETING ASSOCIATE [facility] MONOCYTES 7.3 4.0 - 12.0 % 08/04/2024 7:40 PM STRATEGIC MARKETING ASSOCIATE [facility] EOSINOPHILS 1.0 0.0 - 5.0 % 08/04/2024 7:40 PM [facility] BASOPHILS 0.6 0.0 - 1.0 % 08/04/2024 7:[address] [facility] ABSOLUTE NEUTROPHILS 4.45 1.60 - 7.70 10(3)/mcL 08/04/2024 7:40 PM STRATEGIC MARKETING ASSOCIATE [facility] ABSOLUTE LYMPHOCYTES 1.90 1.30 - 3.20 10(3)/mcL 08/04/2024 7:[address] [facility] ABSOLUTE MONOCYTES 0.51 0.20 - 1.00 10(3)/mcL 08/04/2024 7:40 PM [facility] ABSOLUTE EOSINOPHIL 0.07 0.00 - 0.40 10(3)/mcL 08/04/2024 7:40 PM [facility] ABSOLUTE BASOPHILS 0.04 0.00 - 0.10 10(3)/mcL 08/04/2024 7:[address] [facility] NRBC PER 100 WBC 0 08/04/19 7:[address] [facility] Blood Venipuncture / Unknown 08/04/2024 7:26 PM STRATEGIC MARKETING ASSOCIATE 08/04/2024 7:37 PM STRATEGIC MARKETING ASSOCIATE Sandy Leyva PRECISION OPTICS TECHNICIAN, GLOBAL CREATIVE CHAIRMAN HEMATOLOGY ORDERABLES Final Result [facility] [address] [place] [address] * (ABNORMAL) Comprehensive Metabolic Panel (Cmp) [id number] (08/04/2024 7:26 PM [facility]) SODIUM 141 136 - 145 mmol/L 08/04/2024 8:[address] [facility] POTASSIUM 3.6 3.5 - 5.1 mmol/L 08/04/2024 8:[address] [facility] CHLORIDE 107 98 - 107 mmol/L 08/04/2024 8:[address] [facility] CO2, VENOUS 25 22 - 30 mmol/L 08/04/2024 8:[address] [facility] ANION GAP 12.6 <18.0 mmol/L 08/04/2024 8:[address] [facility] GLUCOSE 167(H) 70 - 99 mg/dL 08/04/2024 8:[address] [facility] BUN 11 5 - 18 mg/dL 08/04/2024 8:[address] [facility] CREATININE, BLOOD 0.84 0.60 - 1.00 mg/dL 08/04/2024 8:[address] [facility] BUN/CREATININE RATIO 13 12 - 20 ratio 08/04/2024 8:[address] [facility] TOTAL PROTEIN 8.0 6.0 - 8.0 g/dL 08/04/2024 8:[address] [facility] ALBUMIN 4.2 3.5 - 5.0 g/dL 08/04/2024 8:[address] [facility] A/G RATIO 1.1 1.0 - 2.2 08/04/2024 8:[address] [facility] CALCIUM 9.3 8.7 - 10.5 mg/dL 08/04/2024 8:[address] [facility] T BILI 0.2 0.2 - 1.2 mg/dL 08/04/2024 8:00 PM STRATEGIC MARKETING ASSOCIATE [facility] SGOT (AST) 40 6 - 42 U/L 08/04/2024 8:00 PM STRATEGIC MARKETING ASSOCIATE [facility] SGPT (ALT) 46 6 - 55 U/L 08/04/2024 8:00 PM STRATEGIC MARKETING ASSOCIATE [facility] ALKALINE PHOSPHATASE 88 40 - 150 U/L 08/04/2024 8:00 PM STRATEGIC MARKETING ASSOCIATE [facility] GFR, ESTIMATED >60 >=60 08/04/2024 8:00 PM STRATEGIC MARKETING ASSOCIATE [facility] Comment: Creatinine Clearance is the preferred criteria for selecting drug dose adjustments in renally impaired patients. ??The GFR is provided as additional pertinent clinical information. GFR is reported in mL/min/1.73 sq m. Calculation based on the Chronic Kidney Disease Epidemiology Collaboration (CKD- EPI) equation refit without adjustment for race. GFR, EST. >60 >=60 025 8:00 PM STRATEGIC MARKETING ASSOCIATE [facility] GFR, EST. NONAFRICAN >60 >=60 08/04/2024 8:00 PM STRATEGIC MARKETING ASSOCIATE [facility] Blood Venipuncture / Unknown 08/04/2024 7:26 PM STRATEGIC MARKETING ASSOCIATE 08/04/2024 7:37 PM STRATEGIC MARKETING ASSOCIATE us Sandy Leyva APRN, GLOBAL CREATIVE CHAIRMAN CHEMISTRY ORDERABLES Final Result [facility] [address] [place] [address] * POCT Urine HCG () (08/04/2024 6:50 PM STRATEGIC MARKETING ASSOCIATE) POC URINE Negative POC URINE CONTROL Front Desk Monitor Pass Urine 08/04/2024 6:50 PM STRATEGIC MARKETING ASSOCIATE us Colt Lozano MD POINT OF CARE TESTING (NM NUIL) Final Result * (ABNORMAL) URINALYSIS REFLEX IF INDICATED BY ABNORMAL RESULTS (08/04/2024 6:46 PM STRATEGIC MARKETING ASSOCIATE) SPECIFIC GRAVITY 1.020 1.003 - 1.030 08/04/2024 7:[address] [facility] URINE PH 7.0 5.0 - 9.0 08/04/2024 7:[address] [facility] WBC ESTERASE Negative Negative 08/04/2024 7:[address] [facility] NITRITE Negative Negative 08/04/2024 7:[address] [facility] PROTEIN, RANDOM URINE 15 mg/dL(A) Negative 08/04/2024 7:[address] [facility] URINE GLUCOSE, QUAL Negative Negative 08/04/2024 7:[address] [facility] URINE KETONES Negative Negative 08/04/2024 7:[address] [facility] UROBILINOGEN Normal Normal mg/dL 08/04/2024 7:[address] [facility] URINE BLOOD 10 /uL(A) Negative renee/ul 08/04/2024 7:[address] [facility] URINALYSIS COLOR Yellow 08/04/19 7:[address] [facility] URINALYSIS CLARITY Clear 08/04/2024 7:[address] [facility] WBC (Urine) 0-5 Negative, 0-5 /hpf 08/04/2024 7:[address] [facility] URINE RBC'S 3-5(A) Negative, 0-2 /hpf 08/04/2024 7:[address] [facility] EPITHELIAL CELLS Moderate amount /lpf 08/04/2024 7:[address] [facility] BACTERIA, URINE Few(A) Negative /hpf 08/04/2024 7:[address] [facility] CRYSTALS Amorphous urates 08/04/2024 7:[address] [facility] Urine URINE SPECIMEN COLLECTION, CLEAN CATCH / Unknown Non-Phlebotomy Collection / Unknown 08/04/2024 6:46 PM STRATEGIC MARKETING ASSOCIATE 08/04/2024 6:58 PM STRATEGIC MARKETING ASSOCIATE us Colt Lozano MD URINE ORDERABLES Final Re sult [facility] [address] [place] [address] documented in this encounter Visit Diagnoses Diagnosis Generalized abdominal pain- Primary Abdominal pain, generalized documented in this encounter Administered Medications Inactive Administered Medications - up to 3 most recent administrations Medication Order MAR Action Action Date Dose Rate Site 0.9 % sodium chloride solution at 999 mL/hr, Intravenous, ONCE, 1 dose, On Abbi 08/04/24 at 1930 New Bag 08/04/2024 7:25 PM STRATEGIC MARKETING ASSOCIATE 1,000 mL 999 mL/hr ketorolac (TORADOL) injection 30 mg 30 mg, Intravenous, ONCE, 1 dose, On Abbi 08/04/24 at 1930 Given 08/04/2024 7:25 PM STRATEGIC MARKETING ASSOCIATE 30 mg KETOROLAC TROMETHAMINE 30 MG/ML IJ SOLN 1 dose, Starting on Abbi 08/04/24 at 1917, Until Abbi 08/04/24 at 1924, Created by cabinet override ondansetron (ZOFRAN) injection 4 mg 4 mg, Intravenous, ONCE, 1 dose, On Abbi 08/04/24 at 1930 Given 08/04/2024 7:26 PM STRATEGIC MARKETING ASSOCIATE 4 mg ONDANSETRON HCL 4 MG/2ML IJ SOLN 1 dose, Starting on Abbi 08/04/24 at 1917, Until Abbi 08/04/24 at 192, Created by cabinet override documented in this encounter Active and Recently Administered Medications Times are shown in STRATEGIC MARKETING ASSOCIATE. Scheduled Medication Order 08/02/2024 08/03/2024 08/04/2024 0.9 [...] RN) documented in this encounter Care Teams Box Attacher Relationship Specialty Start Date End Date Provider, None [place] PCP - General 08/05/22 documented as of this encounter
[2024-08-05 13:13] LABS: BEDSIDEPREGUCG Negative (Negative)
[2024-08-05 13:26] LABS: Add Urine Microscopic? NO; Appearance Urine Clear (Clear); Bilirubin Urine Negative (Negative); Blood Urine Negative (Negative); Color Urine Yellow (Yellow); Glucose Urine UA Negative (Negative); Ketones Urine Negative (Negative); Leukocyte Esterase Ur Negative LEU/UL (Negative); Nitrate Urine Negative (Negative); Protein Urine Negative (Negative); Specific Grav Ur 1.016 (1.001-1.035); Urobilinogen Urine 0.2 mg/dL (<2.0); pH Urine 6.5 (5.0-9.0)
[2024-08-05 13:28] LABS: Basophils Absolute Auto 0.1 K/mm3 (0.0-0.1); Basophils Percent Auto 1.1 % (0.2-1.2); Eosinophils Absolute Auto 0.1 K/mm3 (0-0.3); Eosinophils Percent Auto 1.1 % (0-4.4); Hematocrit 38.7 % (37.0-47.0); Hemoglobin 12.1 g/dL (12.0-15.0); Immature Granulocyte Absolute 0.03 K/mm3 (0.00-0.031); Immature Granulocyte Percent A 0.6 % (0-0.5); Lymphocytes Absolute Auto 1.49 K/mm3 (0.9-3.2); Lymphocytes Percent Auto 28.2 % (18.3-44.2); Mean Corpuscular HGB Conc 31.3 g/dl (32-36); Mean Corpuscular Hemoglobin 25.8 pg (26-34); Mean Corpuscular Volume 82.5 fl (80-100); Monocytes Absolute Auto 0.3 K/mm3 (0.1-0.6); Monocytes Percent Auto 6.2 % (2.6-8.5); Neutrophils Absolute Auto 3.3 K/mm3 (1.3-6.7); Neutrophils Percent Auto 62.8 % (45.5-73.1); Platelet Count Result 330 k/mm3 (150-375); Red Blood Count 4.69 M/mm3 (4.2-5.4); Red Cell Distribution Width 17.1 % (11.5-14.5); White Blood Count 5.3 K/mm3 (4.5-10.0)
[2024-08-05 13:32] LABS: Alanine Aminotransferase 51 U/L (6-35); Albumin Level 4.2 g/dL (3.5-5.1); Alkaline Phosphatase 96 U/L (38-126); Anion Gap 10 mmol/L (4-12); Aspartate Amino Transferase 51 U/L (14-36); Bilirubin,Total 0.6 mg/dL (0.2-1.3); Blood Urea Nitrogen 10 mg/dL (7-17); Calcium 9.4 mg/dL (8.4-10.2); Carbon Dioxide 25 mmol/L (22-30); Chloride 105 mmol/L (98-107); Estimated CRCL calculation 132 ml/min; Estimated Glomerular Filt Rate > 60; Glucose 108 mg/dL (65-110); Lipase 58 U/L (23-300); Potassium 4.1 mmol/L (3.4-5.0); Sodium 140 mmol/L (137-145)
--- NOTE | 2024-08-05 16:10 | ED.GENADULT ---
HPI - General Adult General Chief complaint: Abdominal Pain Stated complaint: abd. pain Time Seen by Provider: 08/05/24 12:14 History of Present Illness HPI narrative: 39-year-old female presenting to the emergency department for evaluation for left upper quadrant left lower quadrant abdominal pain. Patient reports symptoms started 3 days ago. Patient states that the abdominal pain worsened yesterday. Patient does have prior history of kidney stones. Patient states he has not feel a kidney stone. Patient states she is having frequent urinary tract infections and does have intermittent urinary symptoms. Related Data Home Medications ?Medication ?Instructions ?Recorded ?Confirmed ?Last Taken ?Type No Home Medications 04/15/24 04/15/24 Unknown History Allergies Allergy/AdvReac Type Severity Reaction Status Date / Time NSAIDS (Non-Steroidal AdvReac Mild Other Verified 08/05/24 10:33 Anti-Inflamma Review of Systems Review of Systems: All systems reviewed & are unremarkable except as noted in HPI and below PMFSH Past Medical History Medical History Anemia Anxiety Arthritis MAYES (dyspnea on exertion) GERD (gastroesophageal reflux disease) Vern's thyroiditis Hypothyroidism Mastalgia Menopausal symptoms Morbid obesity PCOS (polycystic ovarian syndrome) Screening mammogram for breast cancer Surgical History Surgical History delivery delivered x5 H/O tubal ligation 2013 History of sleeve gastrectomy 2016 Family History Family History Unknown No pertinent family history Social History Social History Smoking status: Never smoker Second hand tobacco smoke exposure: No Alcohol intake: never Substance use: never Substance use type: does not use Living arrangements: with family Occupation/Education: unemployed Gender identity (if verbalized by the patient): Female Sexual Orientation (if Verbalized by the Patient): Straight or Heterosexual Spiritual care concerns: No Exam Narrative: APPEARANCE: Well appearing, no pain, no distress, well-nourished. HEAD: normocephalic, atraumatic. EYES: PERRLA/EOMI, conjunctivae clear. NOSE: Normal no drainage EARS:TMS clear with good light reflex. THROAT: Pharynx clear, no exudate. NECK: Supple. No adenopathy, no masses. RESPIRATORY: Airway patent, respirations nonlabored. Clear to auscultation bilaterally, no rales, rhonchi, wheezing. CARDIOVASCULAR: Regular rate and rhythm without murmurs rubs or gallops. ABDOMINAL: Left upper quadrant and left lower quadrant abdominal pain MUSCULOSKELETAL: Moves all extremities. Strength/ROM intact, No edema, No calf tenderness. NEURO: Alert. Cranial nerves II through XII intact. Grossly intact SKIN: Warm, dry. Normal Color Course Vital Signs Vital signs: Vital Signs Temperature 97.4 F L 08/05/24 10:43 Pulse Rate 79 08/05/24 10:43 Respiratory Rate 16 08/05/24 10:43 Blood Pressure 149/73 H 08/05/24 10:43 Pulse Oximetry 100 08/05/24 10:43 Oxygen Delivery Room Air 08/05/24 10:43 Temperature 97.4 F L 08/05/24 10:43 Pulse Rate 79 08/05/24 10:43 Respiratory Rate 16 08/05/24 10:43 Blood Pressure 149/73 H 08/05/24 10:43 Pulse Oximetry 100 08/05/24 10:43 Oxygen Delivery Room Air 08/05/24 10:43 Medical Decision Making Vital Signs Vital Signs: Vital Signs Temperature 97.4 F L 08/05/24 10:43 Pulse Rate 79 08/05/24 10:43 Respiratory Rate 16 08/05/24 10:43 Blood Pressure 149/73 H 08/05/24 10:43 Pulse Oximetry 100 08/05/24 10:43 Oxygen Delivery Room Air 08/05/24 10:43 Temperature 97.4 F L 08/05/24 10:43 Pulse Rate 79 08/05/24 10:43 Respiratory Rate 16 08/05/24 10:43 Blood Pressure 149/73 H 08/05/24 10:43 Pulse Oximetry 100 08/05/24 10:43 Oxygen Delivery Room Air 08/05/24 10:43 Lab Data 08/05/24 13:09 08/05/24 13:09 Labs: Lab Results 08/05/24 08/05/24 Range/Units 13:09 13:11 WBC 5.3 (4.5-10.0) K/mm3 RBC 4.69 (4.2-5.4) M/mm3 Hgb 12.1 (12.0-15.0) g/dL Hct 38.7 (37.0-47.0) % MCV 82.5 (80-100) fl MCH 25.8 L (26-34) pg MCHC 31.3 L (32-36) g/dl RDW 17.1 H (11.5-14.5) % Plt Count 330 (150-375) k/mm3 MPV 10.0 (7.4-10.4) fl Immature Gran % (Auto) 0.6 H (0-0.5) % Neut % (Auto) 62.8 (45.5-73.1) % Lymph % (Auto) 28.2 (18.3-44.2) % [place] % (Auto) 6.2 (2.6-8.5) % Eos % (Auto) 1.1 (0-4.4) % Baso % (Auto) 1.1 (0.2-1.2) % Lymph # (Auto) 1.49 (0.9-3.2) K/mm3 [place] # (Auto) 0.3 (0.1-0.6) K/mm3 Eos # (Auto) 0.1 (0-0.3) K/mm3 Baso # (Auto) 0.1 (0.0-0.1) K/mm3 Abs Immat Gran (auto) 0.03 (0.00-0.031) K/mm3 Absolute Neuts (auto) 3.3 (1.3-6.7) K/mm3 Absolute Nucleated RBC 0.000 (0.0-0.012) K/mm3 Nucleated RBC % 0.0 (0.0-0.2) % Sodium 140 (137-145) mmol/L Potassium 4.1 (3.4-5.0) mmol/L Chloride 105 (98-107) mmol/L Carbon Dioxide 25 (22-30) mmol/L Anion Gap 10 (4-12) mmol/L BUN 10 (7-17) mg/dL Creatinine 0.60 L (0.7-1.0) mg/dL Estim Creat Clear Calc 132 ml/min Estimated GFR > 60 (59 - ) Glucose 108 (65-110) mg/dL Calcium 9.4 (8.4-10.2) mg/dL Total Bilirubin 0.6 (0.2-1.3) mg/dL AST 51 H (14-36) U/L ALT 51 H (6-35) U/L Alkaline Phosphatase 96 (38-126) U/L Total Protein 8.0 (6.3-8.2) g/dL Albumin 4.2 (3.5-5.1) g/dL Lipase 58 (23-300) U/L Urine Color Yellow (Yellow) Urine Appearance Clear (Clear) Urine pH 6.5 (5.0-9.0) Ur Specific [place] 1.016 (1.001-1.035) Urine Protein Negative (Negative) mg/dL Urine Glucose (UA) Negative (Negative) mg/dL Urine Ketones Negative (Negative) mg/dL Ur Blood (Man) Negative (Negative) Urine Nitrate Negative (Negative) Urine Bilirubin Negative (Negative) Urine Urobilinogen 0.2 (<2.0) mg/dL Leukocyte Esterase Rfl Negative (Negative) BELIA/UL POC Urine HCG, Qual Negative (Negative) Discharge Plan Discharge Instructions: Antibiotic Form Patient Language: Mohawk Prescriptions: No Action No Home Medications Follow-up/Referrals: Kimberly,MD Chaparro [Primary Care Provider] -
[2024-08-05] MEDS: ONDANSETRON INJ 4 MG/2 ML VIAL IV PUSH (16:34)
[2024-08-05] MEDS: HYDROmorphone HCL INJ (*CRX) 1 MG/ML SYR IV PUSH (16:34)
[2024-08-05 16:53] VITALS: O2SAT 100
[2024-08-05 17:00] VITALS: O2SAT 100
[2024-08-05 17:01] VITALS: BP 113/51; O2SAT 100
[2024-08-05 17:41] VITALS: O2SAT 98
[2024-08-05 17:45] VITALS: O2SAT 100
[2024-08-05] MEDS: BELLADONNA ALK/PHENOB ELIX 10 ML, MAG HYDROX/ALUMINUM HYD/SIMETH 30 ML, LIDOCAINE 2% VI... PO (17:45)
[2024-08-05] MEDS: PANTOPRAZOLE SODIUM IV 40 MG VIAL IV PUSH (17:45)
[2024-08-05] MEDS: FAMOTIDINE 20 MG/2 ML VIAL IV PUSH (17:46)
== END 2024-08-05 18:11 | disposition home or self-care (01) ==
PROVIDERS: Physician Assistant; Emergency Provider Emergency Medicine; PCP Hospitalist
DX: R10.9 Unspecified abdominal pain (principal); E06.3 Autoimmune thyroiditis; E66.01 Morbid (severe) obesity due to excess calories; Z68.41 Body mass index [BMI] 40.0-44.9, adult; E28.2 Polycystic ovarian syndrome; K21.9 Gastro-esophageal reflux disease without esophagitis; M19.90 Unspecified osteoarthritis, unspecified site; Z98.84 Bariatric surgery status; Z86.2 Personal history of diseases of the blood and blood-forming organs and certain disorders involving the immune mechanism
CPT/HCPCS: 36415; 74177; 80053; 81003; 81025; 83690; 85025; 96374; 96375; 99284; A9270; J1171; J2405; J2470; Q9967

== ENCOUNTER 2024-09-23 12:33 | Outpatient (CLI) | payer OTHER, SELFPAY ==
--- NOTE | ~2024-09-23 | MM_ITS ---
EXAMINATION: MM diagnostic jil BI w deepti HISTORY: Left breast pain TECHNIQUE: Additional 3-D tomosynthesis images of the left breast were performed and synthetic 2-D im ages were generated. CAD analysis was submitted and interpreted. COMPARISON: Comparison to multiple prior studies sequentially, with oldest reviewed study dated 06/05. BREAST PARENCHYMAL COMPOSITION: Not dense: There are scattered areas of fibroglandular density. FINDINGS: There are no suspicious masses, calcifications or architectural distortion in the left [address] to suggest malignancy. IMPRESSION: 1. No evidence for malignancy in the left breast. 2. Routine yearly screening mammogram and regular clinical breast examination are recommended. BI-RADS Category 1: Negative Reviewed, dictated and finalized at location B. IMPRESSION: 1. No evidence for malignancy in the left breast. 2. Routine yearly screening mammogram and regular clinical breast examination a re recommended. BI-RADS Category 1: Negative
--- OUTSIDE RECORDS SUMMARY | 2024-09-23 13:13 | XMS_ITS | Encounter Summary ---
Author Organization 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
--- OUTSIDE RECORDS SUMMARY | 2024-09-23 13:13 | XMS_ITS ---
Author Organization [facility] Address [address] [facility] [address] [place] [address] Phone Care Team Providers Care Manager Pharmacy Name Role Phone Provider, None Primary Care Provider Unavailblank e [facility] Status:Enrolled (Active) Start date:08/03/2024 Enrollment date:08/03/2024 Related social drivers of health:Intimate Partner Violence, Social Connections, Alcohol Use, Financial Resource Strain, Depression, Stress, Physical Activity, Food Insecurity, Transportation Needs, Housing Stability, Utilities Continued Care and Services Coordination
--- OUTSIDE RECORDS SUMMARY | 2024-09-23 13:13 | XMS_ITS | Clinical Summary ---
Author Organization [facility] Address [address] [address] Phone Care Team Providers Care Gold And Silver Assayer Name Role Phone Provider, None Primary Care [...] Department Care Team Description 08/04/2024 6:43 PM HIGH SCHOOL SCIENCE TEACHER - 08/04/2024 9:25 PM HIGH SCHOOL SCIENCE TEACHER Emergency [facility] [address] [place] [address] Sandy Leyva, STEEL FABRICATOR, AUTOMATIC BUFFING WHEEL FORMER Generalized abdominal pain Discharge Disposition: Discharged to home or Selfcare 08/04/2024 Travel from Last 3 Months Social History [...] Sex Assigned at Female 05/23/2024 7:05 PM HIGH SCHOOL SCIENCE TEACHER Legal Sex Female 1:02 PM HIGH SCHOOL SCIENCE TEACHER Gender Identity Female 05/23/2024 7:05 PM HIGH SCHOOL SCIENCE TEACHER Sexual Orientation Not on file Last Filed Vital Signs Vital Sign Reading Time Taken Comments Blood Pressure 138/91 08/04/2024 9:24 PM HIGH SCHOOL SCIENCE TEACHER Pulse 97 08/04/2024 9:24 PM HIGH SCHOOL SCIENCE TEACHER Temperature 36.7 C (98.1 F) 08/04/2024 6:39 PM HIGH SCHOOL SCIENCE TEACHER Respiratory Rate 14 08/04/2024 9:24 PM HIGH SCHOOL SCIENCE TEACHER Oxygen Saturation 100% 08/04/2024 9:24 PM HIGH SCHOOL SCIENCE TEACHER Inhaled Oxygen Concentration - - Weight 117.9 kg (260 lb) 08/04/2024 6:39 PM HIGH SCHOOL SCIENCE TEACHER Height 165.1 cm (5' 5 ) 08/04/2024 6:39 PM HIGH SCHOOL SCIENCE TEACHER Body Mass Index 43.27 08/04/2024 6:39 PM HIGH SCHOOL SCIENCE TEACHER Plan of Treatment Health Maintenance Due Date Last Done Comments Hepatitis C Virus (HCV) Screening 1983 Hepatitis B Immunization (1 of 3 - 19+ 3-dose series) 2002 Pap Smear 2004 Cervical Cancer Screening (CCS) 2013 HPV/Cotest 2013 SARS-COV-2 Immunization ( season) 2024 Mammogram 06/08/2025 06/08/2024, 05/07, 08/18/2022, Additional history exists Respiratory Syncytial Virus (RSV) Immunization (Adult) (1 [...] CONTRAST) Stat with Interpretation 08/04/2024 7:54 PM HIGH SCHOOL SCIENCE TEACHER GOLD TOP TUBE STAT 08/04/2024 7:26 PM HIGH SCHOOL SCIENCE TEACHER BLUE TOP TUBE STAT 08/04/2024 7:26 PM HIGH SCHOOL SCIENCE TEACHER CBC WITH AUTO DIFFERENTIAL STAT 08/04/2024 7:26 PM HIGH SCHOOL SCIENCE TEACHER EXTRA TUBES STAT 08/04/2024 7:26 PM HIGH SCHOOL SCIENCE TEACHER CMP (COMPREHENSIVE METABOLIC PANEL) STAT 08/04/2024 7:26 PM HIGH SCHOOL SCIENCE TEACHER COMPLETE BLOOD COUNT (CBC) WITH DIFF STAT 08/04/2024 7:26 PM HIGH SCHOOL SCIENCE TEACHER POCT URINE HCG () STAT 08/04/2024 6:50 PM HIGH SCHOOL SCIENCE TEACHER URINALYSIS REFLEX IF INDICATED BY ABNORMAL RESULTS STAT 08/04/2024 6:46 PM HIGH SCHOOL SCIENCE TEACHER from Last 3 Months Results * CT RENAL STONE STUDY (ABDOMEN AND PELVIS W/O CONTRAST) (08/04/2024 7:54 PM HIGH SCHOOL SCIENCE TEACHER) Anatomical Region Laterality Modality Abdomen N/A Computed Tomogra phy 08/04/2024 8:07 PM HIGH SCHOOL SCIENCE TEACHER Impressions 08/04/2024 8:09 PM HIGH SCHOOL SCIENCE TEACHER IMPRESSION: 1. No gross CT finding to explain the patient's symptoms. 2. Prominent uterus. Ascencion of gas within the lower uterine segment, likely due to reflux. Narrative 08/04/2024 8:09 PM HIGH SCHOOL SCIENCE TEACHER EXAM DESCRIPTION: CT RENAL STONE STUDY (ABDOMEN [...] Skip Ta M.D. AG: GERMÁN Report ID: [id number] Reading Location: [place] [address] Procedure Note Skip Ta MD - 08/04/2024 [...] Skip Ta M.D. AG: GERMÁN Report ID: [id number] Reading Location: [place] [address] IMPRESSION: 1. No gross CT finding to explain the patient's symptoms. 2. Prominent uterus. Ascencion of gas within the lower uterine segment, likely due to reflux. Sandy Leyva APRN, ARCHIE IMG CT ORDERABLES Fin al Result * Gold Top Tube (08/04/2024 7:26 PM HIGH SCHOOL SCIENCE TEACHER) Blood No Phlebotomy Charged / Unknown 08/04/2024 7:26 PM HIGH SCHOOL SCIENCE TEACHER 08/04/2024 7:38 PM HIGH SCHOOL SCIENCE TEACHER Sandy Leyva APRN, ARCHIE CHEMISTRY ORDERABLES Final Result [facility] [address] [place] [address] * Blue Top Tube (08/04/2024 7:26 PM HIGH SCHOOL SCIENCE TEACHER) Blood No Phlebotomy Charged / Unknown 08/04/2024 7:26 PM HIGH SCHOOL SCIENCE TEACHER 08/04/2024 7:38 PM HIGH SCHOOL SCIENCE TEACHER Sandy Leyva STEEL FABRICATOR, AUTOMATIC BUFFING WHEEL FORMER HEMATOLOGY ORDERABLES Final Result [facility] [address] [place] [address] * (ABNORMAL) CBC with Auto Differential (08/04/2024 7:26 PM HIGH SCHOOL SCIENCE TEACHER) WBC 6.97 4.00 - 12.00 10(3)/mcL 08/04/2024 7:40 PM HIGH SCHOOL SCIENCE TEACHER [facility] RBC 4.46 3.80 - 5.30 10(6)/mcL 08/04/2024 7:40 PM HIGH SCHOOL SCIENCE TEACHER [facility] HEMOGLOBIN (HGB) 11.5(L) 12.0 - 15.8 g/dL 08/04/2024 7:40 PM HIGH SCHOOL SCIENCE TEACHER [facility] HEMATOCRIT (HCT) 36.2 36.0 - 47.0 % 08/04/2024 7:40 PM HIGH SCHOOL SCIENCE TEACHER [facility] MCV 81.2(L) 82.0 - 96.0 fL 08/04/2024 7:40 PM HIGH SCHOOL SCIENCE TEACHER [facility] MCH 25.8(L) 26.0 - 34.0 pg 08/04/2024 7:40 PM HIGH SCHOOL SCIENCE TEACHER [facility] MCHC 31.8 31.0 - 36.0 g/dL 08/04/2024 7:40 PM HIGH SCHOOL SCIENCE TEACHER [facility] PLATELET COUNT 348 140 - 440 10(3)/mcL 08/04/2024 7:40 PM HIGH SCHOOL SCIENCE TEACHER [facility] RDW 16.7(H) 11.8 - 15.5 % 08/04/2024 7:40 PM HIGH SCHOOL SCIENCE TEACHER [facility] MPV 9.9 9.7 - 12.4 fL 08/04/2024 7:40 PM HIGH SCHOOL SCIENCE TEACHER [facility] NEUTROPHILS 63.8 47.0 - 73.0 % 08/04/2024 7:40 PM HIGH SCHOOL SCIENCE TEACHER [facility] LYMPHOCYTES 27.3 18.0 - 42.0 % 08/04/2024 7:40 PM HIGH SCHOOL SCIENCE TEACHER [facility] MONOCYTES 7.3 4.0 - 12.0 % 08/04/2024 7:40 PM HIGH SCHOOL SCIENCE TEACHER [facility] EOSINOPHILS 1.0 0.0 - 5.0 % 08/04/2024 7:40 PM [facility] BASOPHILS 0.6 0.0 - 1.0 % 08/04/2024 7:40 PM HIGH SCHOOL SCIENCE TEACHER [facility] ABSOLUTE NEUTROPHILS 4.45 1.60 - 7.70 10(3)/mcL 08/04/2024 7:40 PM [facility] ABSOLUTE LYMPHOCYTES 1.90 1.30 - 3.20 10(3)/[facility] 08/04/2024 7:40 PM [facility] ABSOLUTE MONOCYTES 0.51 0.20 - 1.00 10(3)/mcL 08/04/2024 7:40 PM HIGH SCHOOL SCIENCE TEACHER [facility] ABSOLUTE EOSINOPHIL 0.07 0.00 - 0.40 10(3)/mcL 08/04/2024 7:40 PM [facility] ABSOLUTE BASOPHILS 0.04 0.00 - 0.10 10(3)/[facility] 08/04/2024 7:40 PM [facility] NRBC PER 100 WBC 0 08/04/19 7:40 PM [facility] Blood Venipuncture / Unknown 08/04/2024 7:26 PM HIGH SCHOOL SCIENCE TEACHER 08/04/2024 7:37 PM HIGH SCHOOL SCIENCE TEACHER us Sandy Leyva STEEL FABRICATOR, AUTOMATIC BUFFING WHEEL FORMER HEMATOLOGY ORDERABLES Final Result [facility] [address] [place] [address] * (ABNORMAL) Comprehensive Metabolic Panel (Cmp) [id number] (08/04/2024 7:26 PM [facility]) SODIUM 141 136 - 145 mmol/L 08/04/2024 8:00 PM [facility] POTASSIUM 3.6 3.5 - 5.1 mmol/L 08/04/2024 8:00 PM [facility] CHLORIDE 107 98 - 107 mmol/L 08/04/2024 8:00 PM [facility] CO2, VENOUS 25 22 - 30 mmol/L 08/04/2024 8:00 PM [facility] ANION GAP 12.6 <18.0 mmol/L 08/04/2024 8:00 PM [facility] GLUCOSE 167(H) 70 - 99 mg/dL 08/04/2024 8:00 PM [facility] BUN 11 5 - 18 mg/dL 08/04/2024 8:00 PM [facility] CREATININE, BLOOD 0.84 0.60 - 1.00 mg/dL 08/04/2024 8:00 PM [facility] BUN/CREATININE RATIO 13 12 - 20 ratio 08/04/2024 8:00 PM [facility] TOTAL PROTEIN 8.0 6.0 - 8.0 g/dL 08/04/2024 8:00 PM [facility] ALBUMIN 4.2 3.5 - 5.0 g/dL 08/04/2024 8:00 PM [facility] A/G RATIO 1.1 1.0 - 2.2 08/04/2024 8:00 PM [facility] CALCIUM 9.3 8.7 - 10.5 mg/dL 08/04/2024 8:00 PM [facility] T BILI 0.2 0.2 - 1.2 mg/dL 08/04/2024 8:00 PM [facility] SGOT (AST) 40 6 - 42 U/L 08/04/2024 8:00 PM HIGH SCHOOL SCIENCE TEACHER [facility] SGPT (ALT) 46 6 - 55 U/L 08/04/2024 8:00 PM HIGH SCHOOL SCIENCE TEACHER [facility] ALKALINE PHOSPHATASE 88 40 - 150 U/L 08/04/2024 8:00 PM HIGH SCHOOL SCIENCE TEACHER [facility] GFR, ESTIMATED >60 >=60 08/04/2024 8:00 PM HIGH SCHOOL SCIENCE TEACHER [facility] Comment: Creatinine Clearance is the preferred criteria for selecting drug dose adjustments in renally impaired patients. The GFR is provided as additional pertinent clinical information. GFR is reported in mL/min/1.73 sq m. Calculation based on the Chronic Kidney Disease Epidemiology Collaboration (CKD- EPI) equation refit without adjustment for race. GFR, EST. >60 >=60 025 8:00 PM HIGH SCHOOL SCIENCE TEACHER [facility] GFR, EST. NONAFRICAN >60 >=60 08/04/2024 8:00 PM HIGH SCHOOL SCIENCE TEACHER [facility] Blood Venipuncture / Unknown 08/04/2024 7:26 PM HIGH SCHOOL SCIENCE TEACHER 08/04/2024 7:37 PM HIGH SCHOOL SCIENCE TEACHER us Sandy Leyva APRN, CNP CHEMISTRY ORDERABLES Final Result [facility] [address] [place] [address] * POCT Urine HCG () (08/04/2024 6:50 PM HIGH SCHOOL SCIENCE TEACHER) POC URINE Negative POC URINE CONTROL Wireless Development Manager Pass Urine 08/04/2024 6:50 PM HIGH SCHOOL SCIENCE TEACHER us Colt Lozano MD POINT OF CARE TESTING ([facility]) Final Result * (ABNORMAL) URINALYSIS REFLEX IF INDICATED BY ABNORMAL RESULTS (08/04/2024 6:46 PM HIGH SCHOOL SCIENCE TEACHER) SPECIFIC GRAVITY 1.020 1.003 - 1.030 08/04/2024 7:24 PM HIGH SCHOOL SCIENCE TEACHER [facility] URINE PH 7.0 5.0 - 9.0 08/04/2024 7:24 PM HIGH SCHOOL SCIENCE TEACHER [facility] WBC ESTERASE Negative Negative 08/04/2024 7:24 PM HIGH SCHOOL SCIENCE TEACHER [facility] NITRITE Negative Negative 08/04/2024 7:24 PM [facility] PROTEIN, RANDOM URINE 15 mg/dL(A) Negative 08/04/2024 7:24 PM HIGH SCHOOL SCIENCE TEACHER [facility] URINE GLUCOSE, QUAL Negative Negative 08/04/2024 7:24 PM HIGH SCHOOL SCIENCE TEACHER [facility] URINE KETONES Negative Negative 08/04/2024 7:24 PM HIGH SCHOOL SCIENCE TEACHER [facility] UROBILINOGEN Normal Normal mg/dL 08/04/2024 7:24 PM [facility] URINE BLOOD 10 /uL(A) Negative renee/ul 08/04/2024 7:24 PM [facility] URINALYSIS COLOR Yellow 08/04/19 7:24 PM HIGH SCHOOL SCIENCE TEACHER [facility] URINALYSIS CLARITY Clear 08/04/2024 7:24 PM HIGH SCHOOL SCIENCE TEACHER [facility] WBC (Urine) 0-5 Negative, 0-5 /hpf 08/04/2024 7:24 PM [facility] URINE RBC'S 3-5(A) Negative, 0-2 /hpf 08/04/2024 7:24 PM HIGH SCHOOL SCIENCE TEACHER [facility] EPITHELIAL CELLS Moderate amount /lpf 08/04/2024 7:24 PM [facility] BACTERIA, URINE Few(A) Negative /hpf 08/04/2024 7:24 PM HIGH SCHOOL SCIENCE TEACHER [facility] CRYSTALS Amorphous urates 08/04/2024 7:24 PM [facility] Urine URINE SPECIMEN COLLECTION, CLEAN CATCH / Unknown Non-Phlebotomy Collection / Unknown 08/04/2024 6:46 PM HIGH SCHOOL SCIENCE TEACHER 08/04/2024 6:58 PM HIGH SCHOOL SCIENCE TEACHER Colt Lozano MD URINE ORDERABLES Final Re sult [facility] [place] [address] from Last 3 Months Insurance MEDICAID [facility] PLAN Care Teams Gold And Silver Assayer Relationship Specialty Start Date End Date Provider, None [place] PCP - General 08/05/22
--- OUTSIDE RECORDS SUMMARY | 2024-09-23 13:13 | XMS_ITS | Encounter Summary ---
Author Organization [facility] Healthcare Address [address] [place] [address] Care Team Providers Care Elastic Attacher Coverstitch Name Role Phone Chaparro Harris MD Primary Care Provider [phone] Jeff Umanzor MD Unavailable [phone] Reason for Visit * Auth/Cert (Routine) Specialty Diagnoses / Procedures Referred By Contac t Referred To Contact Diagnoses Rectal bleeding Rectal pain Rectal bleeding [K62.5] Rectal pain [K62.89] Procedures [place] SIGMOIDOSCOPY FLX DX W/COLLJ SPEC BR/WA IF PFRMD SIGMOIDOSCOPY Referral ID Status Reason Start Date Expiration Date Visits Re quested Visits Authorized [id number] 1 1 Encounter Details Date Type Department Care Team (Late st Contact Info) Description 04/15/2024 Hospital Encounter [facility] [address] [place] [address] Laverne Monteiro MD [address] [place] [address] [address] Social History Tobacco Use Types Packs/Day Years [...] on file Legal Sex Female 8:26 PM MANAGER STRATEGIC DEVELOPMENT Gender Identity Not on file Sexual Orientation [...] pain documented in this encounter Care Teams Elastic Attacher Coverstitch Relationship Specialty Start Date End Date Chaparro Harris MD [address] [place] [address] PCP - General Family Medicine 10/01/21 Jeff Umanzor MD [address] [place] [address] Referring Physician Obstetrics and Gynecology 08/10/23 documented as of this encounter
--- OUTSIDE RECORDS SUMMARY | 2024-09-23 13:13 | XMS_ITS | Patient Health Record ---
Author Organization [facility] [facility] Address [address] [address] Care Team Providers Care Cnc Machine Operator Name Role Phone Ju Maldonado [...] Status Risk Notes Problem Vitamin D deficiency (76193767) Vitamin D deficiency, unspecified (E55.9) Active confirmed Problem Hyperglycemia due to type 2 diabetes mellitus (343246962258812) Type 2 diabetes mellitus with hyperglycemia (E11.65) Active confirmed Problem Hyperlipidemia (50916142) Hyperlipidemia, unspecified (E78.5) Active confirmed Problem Hypothyroidism (55875712) Hypothyroidism, unspecified (E03.9) Active confirmed Problem Obesity (552897795) Obesity, unspecified (E66.9) Active confirmed Problem Non-toxic goiter (186798263) Nontoxic goiter, unspecified (E04.9) Active confirmed Problem Autoimmune thyroiditis (95714849) 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) Active confirmed Problem Polycystic ovary syndrome (disorder) (729696073) Polycystic ovarian syndrome (E28.2) Active confirmed Vital Signs Heart Rate 78 /min 07/25/2024 Respiratory Rate 12 /min 07/25/2024 Blood pressure diastolic 80 mm Hg 07/25/2024 Height 65 in 07/25/2024 Blood pressure systolic 130 mm Hg 07/25/2024 Weight 260 lbs 07/25/2024 BMI 43.26 kg/m2 07/25/2024 Encounters Encounter Location Date Provider Diagnosis [facility] [address] [place] [address] 08/25/2024 Ju Maldonado [facility] [address] [place] [address] 07/12/2024 Ju Mal[facility]ado [facility] [address] [place] [address] 07/14/2024 Ju Maldonado Obesity, unspecified E66.9 [facility] [address] [place] [address] 07/25/2024 Ju Maldonado [facility] [address] [place] [address] 07/26/2024 Ju Maldonado [facility], [facility] [address] [place] [address] 07/26/2024 Ju Maldonado Type 2 diabetes mellitus with hyperglycemia E11.65 [facility] [address] [place] [address] 08/01/2024 Ju Maldonado [facility] [address] [place] [address] 08/02/2024 Ju [facility] [address] [facility], [facility] [address] [place] [address] 07/12/2024 Ju Maldonado Autoimmune thyroidit is E06.3 ; Other fatigue R53.83 ; Obesity, unspecified E66.9 ; Abnormal weight gain R63.5 ; Vitamin D deficiency, unspecified E55.9 ; Hirsutism L68.0 ; Family history of diabetes mellitus Z83.3 and Nontoxic goiter, unspecified E04.9 [place] [address] [facility], [facility] Ju Maldonado [address] [place] [address] 07/25/2024 Ju Maldonado Type 2 diabetes mellitus with hyperglycemia E11.65 ; Hypothyroidism, unspecified E03.9 ; Obesity, unspecified E66.9 ; Polycystic ovarian syndrome E28.2 and Hyperlipidemia, unspecified E78.[address] [place] [address] [facility] [place] [address] [place] [address] 07/15/2024 Ju Maldonado Assessments Encounter Date Diagnosis [...] procedures, referring and communicating with other health healthcare specialist, documenting clinical information in the electronic or [...] increase to 5 mg weeklyEducate patient on [place] Diabetes Association diet recommendationsLifestyle modifications to include [...] procedures, referring and communicating with other health healthcare specialist, documenting clinical information in the electronic or [...] Test Name Order Date ultrasound thyroid 07/12/2024 Insurance Providers Payer Name Payer Address Payer Phone Subscriber Number Group Number Insured Name Patient Relationship to Insured Coverage Start Date Coverage End Date [address] [phone] [id number] Jazmyn San Self - patient is the insured Medical (General) History Medical History History ICD Code anxiety hashimotos thyroiditis obesity type 2 DM
--- OUTSIDE RECORDS SUMMARY | 2024-09-23 13:13 | XMS_ITS | Clinical Summary ---
Author Organization [facility] Address [address] [place] [id number] Phone Care Team Providers Care Collector Name Role Phone Chaparro Harris MD Primary Care Provider [phone] Allergies Active Allergy Reactions Criticality Noted Date [...] Encounters Date Type Department Care Team Description 09/21/2024 External Device Data [facility] ABSTRACTION Provider, Abstract 09/13/2024 External Device Data [facility] ABSTRACTION Provider, Abstract 09/13/2024 External Device Data [facility] ABSTRACTION Provider, Abstract 09/10/2024 External Device Data [facility] ABSTRACTION Provider, Abstract 09/09/2024 External Device Data [facility] ABSTRACTION Provider, Abstract 09/06/2024 External Device Data [facility] ABSTRACTION Provider, Abstract 08/23/2024 External Device Data [facility] ABSTRACTION Provider, Abstract 08/16/2024 External Device Data [facility] ABSTRACTION Provider, Abstract 07/26/2024 External Device Data [facility] ABSTRACTION Provider, [...] on file Legal Sex Female 5:58 AM NETWORK ACCOUNT MANAGER Gender Identity Not on file Sexual Orientation Not on file Last Filed Vital Signs Vital Sign Reading Time Taken Comments Blood Pressure 114/84 04/06/2024 3:35 PM CDT Pulse 62 04/06/2024 3:35 PM CDT Temperature 36.8 C (98.2 F) 04/06/2024 3:35 PM CDT Respiratory Rate 16 04/06/2024 3:35 PM CDT Oxygen Saturation 97% 04/06/2024 3:35 PM CDT Inhaled Oxygen Concentration - - Weight 117 kg (258 lb) 04/06/2024 3:35 PM CDT Height 162.6 cm (5' 4 ) 07/24/2022 12:56 PM NETWORK ACCOUNT MANAGER Body Mass Index 44.29 07/24/2022 12:56 PM NETWORK ACCOUNT MANAGER Plan of Treatment Upcoming Encounters Date Type Department Care Team (Late st Contact Info) Description 10/05/2024 3:45 PM CDT Office Visit [facility] Oncology and Hematology - [place] [address] [place] [address] Codey Angeles MD [address] [facility] [address] [place] [address] Health Maintenance Due Date Last Done Comments Pre-Diabetes and Diabetes Screening 1983 HEPATITIS B VACCINES (1 of 3 - 19+ 3-dose series) 2002 PAP SMEAR 2004 HPV/Cotest 2013 CERVICAL CANCER SCREENING 11/21/2023 PAP SMEAR 11/21/2023 11/20/2020 BREAST CANCER SCREENING 06/01/2024 06/01/20 23, 06/04/2022, 06/06/2021, Additional history exists DTAP/TDAP/TD VACCINES (3 - Td or Tdap) 05/26/2028 05/26/2018, 07/06/2017 INFLUENZA VACCINE Completed 05/06/2024, , 07/06/2022, Additional history exists HPV VACCINES Aged Out No longer eligi ble based on patient's age to complete this topic Procedures Procedure Name Priority Date/Time Associated Diagnosis Comments MAMMO 3D IZZY DIAGNOSTIC BILAT W OR WO CAD Routine 06/04/2022 2:53 PM NETWORK ACCOUNT MANAGER Mastodynia from Last 3 Months or Most Recently Relevant to Health Maintenance Results * MAMMO DIAG BILAT 3D IZZY W OR WO CAD (06/04/2022 2:53 PM NETWORK ACCOUNT MANAGER) Anatomical Region Laterality Modality Breast Bilateral Mammography 06/04/2022 2:53 PM NETWORK ACCOUNT MANAGER Impressions 06/04/2022 3:09 PM NETWORK ACCOUNT MANAGER IMPRESSION: No evidence of malignancy. RECOMMENDATIONS: Bilateral annual screening mammogram. OVERALL FINAL ASSESSMENT: BI-RADS CATEGORY 1: Negative DICTATION LOCATION: [facility] 06/04/2022 3:09 PM NETWORK ACCOUNT MANAGER MAMMOGRAPHY DIGITAL DIAGNOSTIC BILATERAL 3-D TOMOGRAPHY WITH [...] ASSESSMENT: BI-RADS CATEGORY 1: Negative DICTATION LOCATION: [facility] Arun Reina MD MAMMO ORDERABLES Final Result from Last 3 Months or Most Recently Relevant to Health Maintenance Insurance [facility] MEDICAID [facility] MEDICAID Care Teams Collector Relationship Specialty Start Date End Date Chaparro Harris MD [address] [place] [id number] PCP - General Family Practice 02/27/23
--- OUTSIDE RECORDS SUMMARY | 2024-09-23 13:13 | XMS_ITS | Encounter Summary ---
Author Organization [facility] [employer] [facility] Address [address] [place] [address] Care Team Providers Care Ornamental Metalwork Designer Name Role Phone Chaparro Harris MD Primary Care Provider [phone] Reason for Visit * Reason Onset Date Comments lab orders 08/25/2022 Encounter Details Date Type Department Care Team (Late Contact Info) Description 08/25/2022 Telephone [facility] Oncology and Hematology - [place] [address] [facility] [address] [place] [address] [place] [address] [place] [address] [address] [place] [address] lab orders Social History Tobacco Use Types Packs/Day Years Used Date Smoking Tobacco: Never Smokeless Tobacco: Never Alcohol Use Standard Drinks/Week Comments No 0 (1 standard drink = 0.6 oz pur e alcohol) Comments No Sex and Gender Information Value Date Recorded Sex Assigned at Not on file Legal Sex Female 5:58 AM FAMILY MEDIATOR Gender Identity Not on file Sexual Orientation Not on file COVID-19 Exposure Response Date Recorded In the last 10 days, have yo u been in contact with someone who was confirmed or suspected to have Coronavirus/COVID-19? No / Unsure 08/26/2022 3:07 PM FAMILY MEDIATOR documented as of this encounter Plan of Treatment Upcoming Encounters Date Type Department Care Team (Late Contact Info) Description 10/05/2024 3:45 PM CDT Office Visit [facility] Oncology and Hematology - [place] [address] [facility] [address] [place] [address] Codey Angeles MD [address] [facility] [address] [place] [address] Scheduled Orders Name Type Priority [...] (chronic) documented in this encounter Care Teams Ornamental Metalwork Designer Relationship Specialty Start Date End Date Chaparro Harris MD [address] [place] [address] PCP - General Family Practice 02/27/23 documented as of this encounter
--- OUTSIDE RECORDS SUMMARY | 2024-09-23 13:13 | XMS_ITS | Data Portability ---
Author Organization [facility] [place] Address [address] [place] [place] [address] Assessment Encounter Date Assessment Date Assessment LastModified by Organization Details LastModified Time 09/10/2021 09/10/2021 discussed normal US results reviewed and discussed CT and renal US results encouraged to follow up with urology since several urinary sx and since already has a urologist. precautions given. cam Not available 09/23/2021 09:28:07 Plan of Treatment Reminders Order Date Submit Date Provider Last Modified By Organization Details Last Modified Time Details Appointments None recorded. Lab urinalysis, dipstick 2021 022 [facility], [address], [place], [address], 17:05:21 Referral None recorded. Procedures None recorded. Surgeries None recorded. Imaging US, breast, bilateral, w/ axilla 2021 022 [facility], [facility], [place], [address], 3 09:11:00 US, pelvis 2021 022 [place] [facility] [address], [place], [address], 12:20:09 US, transvagina l 2021 022 [facility], [address], [place], [address], 12:28:53 MAMMO, diagnostic, digital, bilateral [address], [address], [place], [address], 16:08:45 US, breast, unilateral [address], [address], [place], [address], 16:08:45 Medication Orders None recorded. Patient TargetsNo targets recorded. Patient InstructionsNo instructions recorded. Reason for Referral None Reported. Results Created Date Observation Date Name Description Value Unit Range Abnormal Flag Note LastModifiedBy Organization Detail LastModifiedTime 08/23/19 22 08/23/2021 CT/GC AND TRICH OMONA S VAGIN JOSSELYN (RRNA ), SWAB chlamydia trachomatis, PCR Negati ve negati ve Not Available [facility] (Lab) [address], [place], [address], 09/02/2021 16:08:28 08/23/19 22 08/23/2021 CT/GC AND TRICH OMONA S VAGIN JOSSELYN (RRNA ), SWAB neisseria gonorrhoeae, PCR Negati ve negati ve Not Available [facility] (Lab) [address], [place], [address], 09/02/2021 16:08:28 08/23/19 22 08/23/2021 CT/GC AND TRICH OMONA S VAGIN JOSSELYN (RRNA ), SWAB trichomonas vaginalis ribosomal RNA (rrna) Negati ve negati ve Not Available [facility] (Lab) [address], [place], [address], 09/02/2021 16:08:28 08/23/19 22 08/23/2021 MOBIL UNCUS MULIE RIS/C URTIS MICHELLE, RT-PC R, ONE SWAB nm bkr mobiluncus mulieris and mobiluncus curtisii by RT-PCR Negati ve Swab- 1 Vag Cerv Not Available [facility] (Lab) [address] [place], [address], 09/02/2021 16:08:28 08/23/19 22 08/23/2021 CAIN DA VAGIN ITIS PANEL RT-PC R, ONESW AB solomon albicans PCR Negati ve Swab- 1 Vag Cerv Not Available [facility] (Lab) [address] [facility], [place], [address], 09/02/2021 16:08:29 08/23/19 22 08/23/2021 CAIN DA VAGIN ITIS PANEL RT-PC R, ONESW AB solomon tropicalis PCR Negati ve Swab- 1 Vag Cerv Not Available [facility] (Lab) [address] [facility], [place], [address], 09/02/2021 16:08:29 08/23/19 22 08/23/2021 CAIN DA VAGIN ITIS PANEL RT-PC R, ONESW AB solomon parapsilosis PCR Negati ve Swab- 1 Vag Cerv Not Available [facility] (Lab) [address] [place], [address], 09/02/2021 16:08:29 08/23/19 22 08/23/2021 CAIN DA VAGIN ITIS PANEL RT-PC R, ONESW AB solomon glabrata PCR Negati ve Swab- 1 Vag Cerv Not Available [facility] (Lab) [address] [place], [address], 09/02/2021 16:08:29 08/23/19 22 08/23/2021 CAIN DA SYLVIE I BY RT-PC R solomon krusei by RT-PCR Negati ve Swab- 1 Vag Cerv Not Available [facility] (Lab) [address] [place], [address], 09/02/2021 16:08:29 08/23/19 22 08/23/2021 UROGE NITAL MYCOP LASMA /UREA PLASM A PANEL RT-PC R, ONESW AB nm bkr mycoplasma genitalium by RT-PCR Negati ve Swab- 1 Vag Cerv Not Available [facility] (Lab) [address] [facility], [place], [address], 09/02/2021 16:08:30 08/23/19 22 08/23/2021 UROGE NITAL MYCOP LASMA /UREA PLASM A PANEL RT-PC R, ONESW AB nm bkr mycoplasma hominis by RT-PCR Negati ve Swab- 1 Vag Cerv Not Available [facility] (Lab) [address] [place], [address], 09/02/2021 16:08:30 08/23/19 22 08/23/2021 UROGE NITAL MYCOP LASMA /UREA PLASM A PANEL RT-PC R, ONESW AB nm bkr ureaplasma urealyticum by RT-PCR Negati ve Swab- 1 Vag Cerv Not Available [facility] (Lab) [address] [facility], [place], [address], 09/02/2021 16:08:30 08/23/19 22 08/23/2021 BACTE RIAL VAGIN OSIS PANEL RT-PC R, ONESW AB gardnerella vaginalis PCR Negati ve Swab- 1 Vag Cerv Not Available [facility] (Lab) [address] [place], [address], 09/02/2021 16:08:30 08/23/19 22 08/23/2021 BACTE RIAL VAGIN OSIS PANEL RT-PC R, ONESW AB atopobium vaginae PCR Negati ve Swab- 1 Vag Cerv Not Available [facility] (Lab) [address] [place], [address], 09/02/2021 16:08:30 08/23/19 22 08/23/2021 BACTE RIAL VAGIN OSIS PANEL RT-PC R, ONESW AB bacterial vaginosis associated bacteria 2 (bvab2) Negati ve Swab- 1 Vag Cerv Not Available [facility] (Lab) [address] [place], [address], 09/02/2021 16:08:30 08/23/19 22 08/23/2021 BACTE RIAL VAGIN OSIS PANEL RT-PC R, ONESW AB megasphaera species (type 1 and type 2) PCR Negati ve (Type1 ,Type2 ) Swab- 1 Vag Cerv Type1 :Nega tive Type2 :Nega tive. Not Available [facility] (Lab) [address] [place], [address], 09/02/2021 16:08:30 08/23/19 22 08/23/2021 BACTE RIAL VAGIN OSIS PANEL RT-PC R, ONESW AB lactobacillu s (bvpanel) PCR See Commen t Swab- 1 Vag Cerv L.cri spatu s: Negat ellen L.carolyn senii : Negat ellen L.gas seri : Negat ellen L.ine rs : Posit ellen. Not Available [facility] (Lab) [address] [place], [address], 09/02/2021 16:08:30 09/05/19 22 09/04/2021 URINA LYSIS , WITH MICRO SCOPI C, REFLE X CULTU RE color, urine Yellow colorl ess, light yellow , yellow , dark yellow , straw Not Available [facility] (Lab) [address] [place], [address], 09/05/2021 01:44:58 09/05/19 22 09/04/2021 URINA LYSIS , WITH MICRO SCOPI C, REFLE X CULTU RE clarity, urine Cloudy Not Available [facility] (Lab) [address] [place], [address], 09/05/2021 01:44:58 09/05/19 22 09/04/2021 URINA LYSIS , WITH MICRO SCOPI C, REFLE X CULTU RE glucose, urine Negati ve mg/dL negati ve Not Available [facility] (Lab) [address] [place], [address], 09/05/2021 01:44:58 09/05/19 22 09/04/2021 URINA LYSIS , WITH MICRO SCOPI C, REFLE X CULTU RE bilirubin, urine Negati ve mg/dL negati ve Not Available [facility] (Lab) [address] [facility], [place], [address], 09/05/2021 01:44:58 09/05/19 22 09/04/2021 URINA LYSIS , WITH MICRO SCOPI C, REFLE X CULTU RE ketones, urine Negati ve mg/dL negati ve Not Available [facility] (Lab) [address] [facility], [place], [address], 09/05/2021 01:44:58 09/05/19 22 09/04/2021 URINA LYSIS , WITH MICRO SCOPI C, REFLE X CULTU RE pH, urine 6.0 . 5.0-9. 0 Not Available [facility] (Lab) [address] [facility], [place], [address], 09/05/2021 01:44:58 09/05/19 22 09/04/2021 URINA LYSIS , WITH MICRO SCOPI C, REFLE X CULTU RE specific gravity, urine 1.023 . 1.001- 1.035 Not Available [facility] (Lab) [address] [place], [address], 09/05/2021 01:44:58 09/05/19 22 09/04/2021 URINA LYSIS , WITH MICRO SCOPI C, REFLE X CULTU RE blood, urine Negati ve negati ve Not Available [facility] (Lab) [address] [place], [address], 09/05/2021 01:44:58 09/05/19 22 09/04/2021 URINA LYSIS , WITH MICRO SCOPI C, REFLE X CULTU RE protein, UA Negati ve mg/dL negati ve Not Available [facility] (Lab) [address] [place], [address], 09/05/2021 01:44:58 09/05/19 22 09/04/2021 URINA LYSIS , WITH MICRO SCOPI C, REFLE X CULTU RE urobilinogen , urine <2.0 mg/dL <2.0 Not Available [facility] (Lab) [address] [facility], [place], [address], 09/05/2021 01:44:58 09/05/19 22 09/04/2021 URINA LYSIS , WITH MICRO SCOPI C, REFLE X CULTU RE nitrite, urine Negati ve negati ve Not Available [facility] (Lab) [address] [facility], [place], [address], 09/05/2021 01:44:58 09/05/19 22 09/04/2021 URINA LYSIS , WITH MICRO SCOPI C, REFLE X CULTU RE leukocyte esterase, urine Negati ve florencia/u L negati ve Not Available [facility] (Lab) [address] [facility], [place], [address], 09/05/2021 01:44:58 09/05/19 22 09/04/2021 URINA LYSIS , WITH MICRO SCOPI C, REFLE X CULTU RE WBC, urine 0-5 /hpf none, 0-5 Not Available [facility] (Lab) [address] [place], [address], 09/05/2021 01:44:58 09/05/19 22 09/04/2021 URINA LYSIS , WITH MICRO SCOPI C, REFLE X CULTU RE RBC, urine 0-2 /hpf none, 0-2 Not Available [facility] (Lab) [address] [place], [address], 09/05/2021 01:44:58 09/05/19 22 09/04/2021 URINA LYSIS , WITH MICRO SCOPI C, REFLE X CULTU RE bacteria, urine Trace /hpf none abnormal Not Available [facility] (Lab) [address] [place], [address], 09/05/2021 01:44:58 09/05/19 22 09/04/2021 URINA LYSIS , WITH MICRO SCOPI C, REFLE X CULTU RE squamous epithelial cells, urine Many /hpf none abnormal Not Available [facility] (Lab) [address] [facility], [place], [address], 09/05/2021 01:44:58 09/05/19 22 09/04/2021 URINA LYSIS , WITH MICRO SCOPI C, REFLE X CULTU RE mucus, urine Modera te /hpf none, trace, few abnormal Not Available [facility] (Lab) [address] [facility], [place], [address], 09/05/2021 01:44:58 09/05/19 22 09/04/2021 URINA LYSIS , WITH MICRO SCOPI C, REFLE X CULTU RE amorphous crystal, urine Many /hpf none abnormal Not Available [facility] (Lab) [address] [facility], [place], [address], 09/05/2021 01:44:58 09/05/19 22 09/04/2021 URINA LYSIS , WITH MICRO SCOPI C, REFLE X CULTU RE calcium oxalate crystal, urine Many /hpf none abnormal Urine Cultu re not perfo rmed per refle x ancelmo col. Not Available [facility] (Lab) [address] [facility], [place], [address], 09/05/2021 01:44:58 09/11/19 22 09/10/2021 urina lysis , dipst ick Leukocytes neg Not Available Mukesh khan [address], [place], [address], 09/10/2021 17:05:08 09/11/19 22 09/10/2021 urina lysis , dipst ick Nitrite neg Not Available [address], [place], [address], 09/10/2021 17:05:08 09/11/19 22 09/10/2021 urina lysis , dipst ick Blood trace Not Available [place] [address], [place], [address], 09/10/2021 17:05:08 09/05/19 22 09/04/2021 US, pelvi s No observ ation record ed. [email or web address] [place] [address], [place], [address], 09/04/2021 12:28:43 09/05/19 22 09/04/2021 US, trans vagin al No observ ation record ed. [email or web address] [place] [address], [place], [address], 09/04/2021 12:28:53 09/05/19 22 09/04/2021 US, pelvi s No observ ation record ed. FRANK Briseyda [address], [place], [address], 10/01/2021 23:40:33 09/10/19 22 09/08/2021 CT, abdom en + pelvi s, w/ contr ast No observ ation record ed. [email or web address] [facility] (Radiology) [address] [facility] , [place], [address], 09/09/2021 20:20:14 09/11/19 22 09/10/2021 US, kidne y No observ ation record ed. [facility] [address], [place], [address], 09/10/2021 16:38:58 07/11/19 23 07/11/2022 US, kay selby, w/ axill a No observ ation record ed. [facility] [place] [address], [place], [address], 07/11/2022 15:18:08 Result Notes None recorded. Problems Name Problem SNOMED Code Status Onset Date Resolution Date Notes Provider Name and Address Organization Details Recorded Time Pregnanc y test negative [id number] Completed 201411/08/2020 Encounte r for pregnanc y test, result negative ;Practic e ID: 0001 Rosa nichole [facility] 16:24:30 Human papillom avirus deoxyrib onucleic acid detected , high risk on cervical specimen 180945762 Completed 201511/08/2020 Cervical high risk HPV DNA test positive ;Practic e ID: [address] [facility] 16:24:24 Low grade squamous intraepi thelial lesion on cervical Papanico laou smear [id number] 105 Completed 201503/27/2021 Low grade intrepit h lesion cyto smr crvx (LGSIL); Practice ID: [address] [facility] 11:26:[address] Concept Completed 201811/08/2020 Encntr for steep tender exam (general ) (routine ) w/o abn findings ;Practic e ID: 0001 Rosa nichole [facility] 16:24:33 Clinical finding Completed 201811/08/2020 Other specifie d disorder s of breast;P ractice ID: 0001 Rosa nichole [facility] 16:24:13 Screenin g for malignan t neoplasm of cervix Completed 201411/15/2020 Encounte r for screenin g for malignan t neoplasm of cervix;R ecorded Elsewher e: No Locat ion: Sin aldana [facility] S ource: EHR Drill Operator Pneumatic angel luis: N Practi ce ID: 0001 Tiago lable Time: 05:00:00 PM Ro nichole [facility] 16:55:10 Disorder of breast 34274786 Completed 201811/08/2020 Disorder of breast, unspecif ied;Maxwell rded Elsewher e: No [facility]: EHR Drill Operator Pneumatic angel luis: N Practi ce ID: 0001 Tiago lable Time: 09:45:[address] [facility] 16:24:16 Finding of body mass index 519006810 Completed 201411/08/2020 Body mass index (BMI) 40.0-44. 9, adult;Re corded Elsewher e: No Locat ion: [facility] S ource: EHR Drill Operator Pneumatic angel luis: N Practi ce ID: 0001 Tiago lable Time: 05:00:00 PM Rosa [facility] 16:24:18 Syphilis test finding 092135154 Completed 201411/08/2020 Encntr screen for infectio ns w sexl mode of transmis s;Record ed Elsewher e: No Locat ion: [facility] S ource: EHR Drill Operator Pneumatic angel luis: N Practi ce ID: 0001 Tiago lable Time: 05:00:00 PM Rosa [facility] 16:24:36 Infectio n screenin g Completed 201411/08/2020 Encounte r for screenin g for oth infec/pa rastc diseases ;Recorde d Elsewher e: No Locat ion: [facility] S ource: EHR Drill Operator Pneumatic angel luis: N Practi ce ID: 0001 Tiago lable Time: 05:00:[address] [facility] 16:24:26 Genuine stress incontin ence 29768855 Completed 201411/08/2020 Stress incontin ence (female) (male);R ecorded Elsewher e: No Locat ion: [facility] S ource: EHR Drill Operator Pneumatic angel luis: N Practi ce ID: 0001 Tiago lable Time: 05:00:[address] [facility], [facility] 16:24:21 Problem Notes None recorded. Procedures Surgical History Date Name Laterality Status Provider Name and Address Organization Details Recorded Time 1 Date of Last Pap Smear completed [facility] 11/20/2020 10:22:52 6 Tubal Ligation completed [facility] 11/20/2020 12:05:25 6 section completed [facility] 11/20/2020 12:05:51 5 Colposcopy completed [facility] 11/15/2020 16:57:09 2 section completed [facility] 11/20/2020 12:05:46 0 section completed [facility] 11/20/2020 12:05:33 8 section completed [facility] 11/20/2020 12:05:10 9 section completed [facility] 11/20/2020 12:05:01 Tubal Ligation completed [facility] 03/27/2021 11:35:40 Imaging Results Imaging Date Name Status LastModified by Organization Details LastModified Time 09/04/2021 US, pelvis completed elisabeth Sauer [address], [place], [address], 09/04/2021 12:28:43 09/04/2021 US, transvaginal completed elisabeth aldana [address], [place], [address], 09/04/2021 12:28:53 09/04/2021 US, pelvis completed [facility] [address], [place], [address], 10/01/2021 23:40:33 09/08/2021 CT, abdomen + pelvis, w/ contrast completed [email or web address] [place] [address] (Radiology) [address] [facility] , [place], [address], 09/09/2021 20:20:14 09/10/2021 US, kidney completed [facility] [address], [place], [address], 09/10/2021 16:38:58 07/11/2022 US, breast, bilateral, w/ axilla completed [facility] [place] [address] [facility] [address], [place], [address], 07/11/2022 15:18:08 Procedure Notes None recorded. Medical Equipment None Reported. Allergies Allergen ID Allergen Name Allergen Category Reaction Reaction Severity Criticality Documentation Date Start Date Code Code System Note Provider Name and Address Organization Details Recorded Time 15640 Non-stero idal anti-infl ammatory agent (product) medicatio n Not available Not available Not available 06/22/2020 16426 005 SNOMED Comme nt: [facility]at [facility]; Not Available [facility] 0 14:24:36 Medications Name Sig Start Date [...] Quigley e: No Locat ion: Sin aldana [facility] Almita moran By: [email or web address] ndt Enco lesvia [...] Prescrib ed Elsewher e: Yes Loca tion: [facility] M odify By: dmrose E ncounter [...] Updated DateTime 03/27/2021 158.75 cm 46.1 kg/m2 893220.65 g Ro Chris [place] - [facility] 03/27/2021 11:35:16 Date Recorded Systolic blood pressure Diastolic blood pressure Provider Name and Address Organization Details Last Updated DateTime 03/27/2021 126 mm[Hg] 82 mm[Hg] Cherelle Monge, [facility] [address], [place], [address], [facility] 03/27/2021 13:35:08 Date Recorded Body height Provider Name an d Address Organization Details Last Updated DateTime 08/23/2021 158.75 cm Ro Chris [facility] 08/23/2021 16:36:10 Date Recorded Body mass index (BMI) Body weight Systolic blood pressure Diastolic blood pressure Provider Name and Address Organization Details Last Updated DateTime 08/23/2021 47.7 kg/m2 094886.26 g 120 mm[Hg] 76 mm[Hg] Cherelle Monge, [facility] [address], [place], [address], [facility] 08/23/2021 17:17:24 Date Recorded Body height Body mass index (BMI) Body weight Systolic blood pressure Diastolic blood pressure Provider Name and Address Organization Details Last Updated DateTime 09/10/2021 158.75 cm 47 kg/m2 189552.6 1 g 140 mm[Hg] 81 mm[Hg] Lizz Moore [facility] 16:57:12 Date Recorded Body height Systolic blood pressure Diastolic blood pressure Provider Name and Address Organization Details Last Updated DateTime 07/03/2022 158.75 cm 130 mm[Hg] 80 mm[Hg] Gina Wood [facility] 07/03/2022 13:01:35 Social History Question Answer Notes LastModified by Organizat ion Details LastModified Time Tobacco Smoking Status Never Smoker Odilon nichole, [facility] 09/04/2021 11:16:24 Do You Have An [...] Anxious, Or Unable To Sleep At Night)? [id number] Information not available 11/15/2020 Do You Use Any Illicit Or Recreational Drugs? No Information not available 11/15/2020 Do You Use Sunscreen Routinely? Yes Information not available 11/15/2020 Have You Used IV Drugs? No Information not available 03/27/2021 Sex: Unknown Functional Status Question Answer Note LastModified by [employer] ion Details LastModified Time Are you able [...] SNOMED-CT Code Diagnosis ICD10 Code Diagnosis Note [id number] Tobin Joshi MD [place] [address] [address] 11/08/2020 15:50:11 11/08/2020 16:51:03 Pain in pelvis 02739352 R10.2 This patient is a 35-year-ol d [...] already had some that was ineffectiv e. [id number] Karen Proctor [place] [address],[facility] [place] [address] 11/12/2020 09:35:10 11/12/2020 10:32:41 Pain in pelvis 79610960 R10.2 This patient is a 35-year-ol d [...] already had some that was ineffectiv e. [id number] [facility] [address],[place] [address] 11/20/2020 10:11:32 11/20/2020 11:10:58 Gynecologic examination 70699758 Z01.419 Take Calcium with Vitamin D 1200mg [...] Advise [place]. [id number] ABI [facility] [address] [address] 03/27/2021 11:22:25 03/27/2021 14:53:58 Mass of left breast 0240534393 2501646 N64.4 Discussed exam today & imaging.Sh jovan [...] exposure to the Covid-19 virus during this patient s visit, including available hand day care assistant upon arrive, hugh e check and being asked a series of screening questions. All staff wore face coverings during this encounter, as well as provided additional cleaning and sanitizing of all surfaces, including countertop s, pens, chairs, door handles, light switches, etc, prior to and following the patient s visit. [id number] [facility] [address],[place] [address] 08/23/2021 16:18:03 08/23/2021 17:25:27 Vaginal pain 03980221 R10.2 Today we agreed to update std/vag [...] exposure to the Covid-19 virus during this patient s visit, including available hand day care assistant upon arrive, temperatur e check and being asked a series of screening questions. All staff wore face coverings during this encounter, as well as provided additional cleaning and sanitizing of all surfaces, including countertop s, pens, chairs, door handles, light switches, etc, prior to and following the patient s visit. [id number] Anna Michel [place] [address],[place] [address] 09/04/2021 11:16:09 09/04/2021 12:03:33 Pain in pelvis 17819160 R10.2 [id number] Jody Hameed MD [place] [address],[place] [address] 09/10/2021 16:41:21 09/23/2021 15:15:51 Urinary symptoms 835972418 R39.9 Pain in pelvis 01247230 R10.2 [id number] Norma Diaz FAISAL [place] [address],[place] [address] 07/03/2022 12:52:25 07/03/2022 15:02:31 Pain of breast 03296016 N64.4 Breast exam with no abnormal masses felt, tenderness in left breast from the 3 o'clock to 5 o'clock position.S he has had normal diagnostic mammogram last month - we do not have these records. Records requested. She has some minor irritation noted likely secondary to recently shaving. Avoid shaving until resolved.S he has an appointmen t scheduled with [facility] breast specialist next week - encouraged her [...] Patel Member ID Guarantor Name 03/27/2021 1 [facility] AFTER 01/03/21 (MEDICAID REPLACEMENT - HMO) [facility] [id number] [facility] 08/23/2021 1 [facility] ON [facility] AFTER 01/03/21 (MEDICAID REPLACEMENT - HMO) [facility] [id number] [facility] 09/04/2021 1 [facility] - DOS ON OR AFTER 21 (MEDICAID REPLACEMENT - HMO) [facility] [id number] [facility] 09/10/2021 1 [facility] - DOS ON OR AFTER 21 (MEDICAID REPLACEMENT - HMO) [facility] [id number] [facility] 07/03/2022 1 [facility] AFTER 01/03/21 (MEDICAID REPLACEMENT - HMO) [facility] [id number] [facility] Notes Date Note Type Note Provider [...] and it was completely WNL Cherelle Monge FAISAL- [address], [place], [place], [id number], [facility] 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 AARTI Wills [address], [place], [address], [facility] 08/23/2021 17:24:06 09/10/2021 text/html Anity is here fo r follow up US for pelvic pain. US 09/04 showed normal uterus, normal right ovary, and left ovary with a 2.5cm simple cyst. She had a CT 09/08 in [place] for RLQ pain that was noral and a renal US 09/10 that was normal. UA with trace of blood. She also feels like she is incompletely emptying unless she pushes for a couple months. She had a cysto a couple years ago for hematuria with Kenneth at [facility]. Jody Hameed MD [address], [place], [address], [facility] 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 ABI Cummins [address], [place], [address], [facility] 07/03/2022 14:18:17 OBGyn Episode Ob Episode Information Episode Created Date Number of Fetuses Patient Bloodtype Patient rh Status Prepregnancy Weight lbs Domestic Partner Domestic Partner Phone Father Name Paint Line Operator Status 11/09/19 21 1 CLOSED Fetus Data [...] Domestic Partner Domestic Partner Phone Father Name Paint Line Operator Status 11/09/19 21 1 CLOSED Fetus Data [...] Domestic Partner Domestic Partner Phone Father Name Paint Line Operator Status 11/09/19 21 1 CLOSED Fetus Data [...] Domestic Partner Domestic Partner Phone Father Name Paint Line Operator Status 11/09/19 21 1 CLOSED Fetus Data First Name Last Name Admitted to NICU Weight (g) Sex Living Outcome Pediatric Complications Fetus ID Race Codes Race Delivery Type [phone] Full Term [id number] Primary Omer Calculation Initial Omre Date Initial Exam Date Initial Exam Provider [...] Domestic Partner Domestic Partner Phone Father Name Paint Line Operator Status 11/09/19 21 1 CLOSED Fetus Data [...]
--- OUTSIDE RECORDS SUMMARY | 2024-09-23 13:13 | XMS_ITS | Referral Summary ---
Author Organization [facility] Address [address] [place] [address] Care Team Providers Care Bookkeeping Manager Name Role Phone Chaparro Harris MD Primary Care Provider [phone] Jeff Umanzor MD Unavailable [phone] Encounters Date Type Department Care Team Description 09/05/2024 Telephone [facility] [address] [facility] [address] [place] [address] Eneida Sandoval RN 08/30/2024 Orders Only [facility] Department of Otolaryngology Head-Neck Division [address] [facility] Central Floor [address] [place] [phone] Darline Messina PA 08/16/2024 Telephone [facility] [address] [place] [address] Olga Maharaj MD 08/11/2024 Telephone [facility] [address] [place] [address] Blanca Christopher, ALEXANDER Forms Request 08/10/2024 2:30 PM MANAGER OF PROCUREMENT Infusion [facility] [address] [facility] [address] [place] [address] Other specified intestinal malabsorption (Primary Dx); Iron deficiency anemia secondary to inadequate dietary iron intake 08/03/2024 Telephone [facility] [address] [place] [address] Chaparro Harris MD Additional Services Or Orders 08/03/2024 2:30 PM MANAGER OF PROCUREMENT Infusion [address] [place] [phone] Other specified intestinal malabsorption (Primary Dx); Iron deficiency anemia secondary to inadequate dietary iron intake 08/02/2024 Orders Only [facility] Health Information Management [address] [place] [address] Scanning, Provider 07/27/2024 2:30 PM MANAGER OF PROCUREMENT Infusion [address] [place] [phone] Other specified intestinal malabsorption (Primary Dx); Iron deficiency anemia secondary to inadequate dietary iron intake 07/26/2024 8:05 AM MANAGER OF PROCUREMENT Lab [facility] [address] [place] [address] 07/25/2024 Telephone [facility] [address] [place] [address] Blanca Christopher, ALEXANDER Forms Request 07/25/2024 Orders Only [facility] at [address] [place] [phone] Ramiro Pinedo, Vern's disease (Primary Dx) 07/21/[address] [place] [phone] Olga Sandoval RN 07/21/[address] [place] [phone] Chaparro Harris MD 07/20/2024 3:00 PM MANAGER OF PROCUREMENT Office Visit [facility] Department of Otolaryngology Head-Neck Division [address] [place] [phone] Darline Messina PA Geographic tongue (Primary Dx); Other lesions of oral mucosa 07/18/2024 Telephone [facility] [address] [address] Blanca Christopher RN Additional Services Or Orders 07/15/2024 Telephone [facility] [address] [place] [address] Jody Jordan, ALEXANDER 07/14/2024 Telephone [facility] [address] [address] Eneida Sandoval RN 07/14/2024 11:15 AM MANAGER OF PROCUREMENT Lab [facility] [address] [place] [phone] 07/14/2024 10:55 AM MANAGER OF PROCUREMENT Lab [facility] [address] [place] [phone] Fatigue, unspecified type; Iron deficiency; Vitamin D deficiency; B12 deficiency 07/12/2024 Orders Only [facility] Minimally Invasive Surgery [address] [place] [address] Medical Office Building [address] [place] [address] Liana Bishop RN Gastroesophageal reflux disease without esophagitis (Primary Dx); Morbid obesity (HCC); S/P laparoscopic sleeve gastrectomy 07/12/2024 Telephone [facility] [address] [facility] Advanced Medicine 11th [place] [address] [place] [phone] Kiran Vanessa, 07/07/2024 Telephone [facility] [address] [place] [address] Martha Stinson, ALEXANDER from Last 3 Months Allergies Active Allergy Reactions Criticality Noted Date Comments Nsaids (Non-Steroidal Anti-Inflammatory Drug) Other (See comments) Low Avoids due to weight loss surgery Medications omeprazole (PriLOSEC) 20 mg capsule Take 1 capsule (20 mg total) by mouth daily as needed Active cyanocobalamin (Vitamin B-12) 1,000 mcg/mL injection Inject 1 mL (1,000 mcg total) into the muscle as instructed every 30 (thirty) days 1 mL 11 5 07/15/19 Active syringe-needle, safety,disp unt 1 mL 25 gauge x 5/8 syringe Use monthly to draw and inject B12 1 each 5 Active LORazepam (ATIVAN) 1 mg tablet Take 1 tablet (1 mg total) by mouth 2 (two) times a day 60 tablet 5 Active dexAMETHasone oral liquid 0.5 mg/5 mL Take 10 mL (1 mg total) by mouth 2 (two) times a day for 5 days 100 mL 3 5 09/05/19 Active Problems Problem Noted Date Diagnosed Date 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 Polycystic ovarian syndrome 08/11/2024 Type 2 diabetes mellitus with hyperglycemia 12/2024 Rectal bleeding 03/15/2024 Rectal pain 03/15/2024 Lipoma [...] or CMV - given recent travel to [place] w nausea/diarrhea, 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 [...] loss Assessment & Plan (08/04/2022 4:53 PM MANAGER OF PROCUREMENT): Not well controlled, continues to have significant [...] (11/26/2021): Added automatically from request for surgery [id number] 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 Assessment & Plan (09/10/2021 1:05 PM MANAGER OF PROCUREMENT): Stable, well controlled; TSH at target Continue to check TSH related, no need for thyroid hormone at this time Assessment & Plan (06/25/2021 3:22 PM MANAGER OF PROCUREMENT): Stable, well controlled; continues to follow with Endocrinology; last TSH was normal, ultrasound reviewed No current medications AME (generalized anxiety disorder) 05/26/2018 Assessment & Plan (06/14/2024 3:04 PM MANAGER OF PROCUREMENT): Not well controlled, acutely worsened due to [...] BID Assessment & Plan (08/04/2022 4:52 PM MANAGER OF PROCUREMENT): Not well controlled; worsening; patient reports multiple [...] daily Assessment & Plan (09/10/2021 1:04 PM MANAGER OF PROCUREMENT): Not well controlled, continues to have elevated anxiety and panic attacks, severe anxiety associated with small health concerns Patient reports no relief previously with Lexapro sertraline Patient is unclear if she needs daily medications Continue bupropion 150 mg daily, Valium 5 mg nightly Assessment & Plan (06/25/2021 3:21 PM MANAGER OF PROCUREMENT): Stable, improving; patient reports decreased panic attacks on sertraline Continue Zoloft 50 mg daily, hydroxyzine 25 mg t.i.d. p.r.n. for panic attacks Iron deficiency anemia ever agudelo to inadequate dietary iron intake 02/04/2018 Assessment & Plan (09/15/2022 5:09 PM CDT): Stable, patient has iron infusion scheduled Assessment & Plan (09/10/2021 1:04 PM MANAGER OF PROCUREMENT): Stable, improving; no evidence of anemia or iron deficiency at this time; continue to monitor with regular CBCs Assessment & Plan (06/25/2021 3:22 PM MANAGER OF PROCUREMENT): Follows with Hematology for iron infusions Low [...] w/r/t gut microbiome. Referred to ADA and [employer] websites for additional information on topics including glycemic index/carbohydrate choices, protein sources. 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 Assessment & Plan (06/25/2021 3:23 PM MANAGER OF PROCUREMENT): Postsurgical changes, secondary to gastric sleeve in [...] been working on weight loss; follows with dialysis registered nurse, cutting back on coffee and trying to eat better Encourage 30 minutes moderate intensity exercise 5 days per week Assessment & Plan (09/10/2021 1:05 PM MANAGER OF PROCUREMENT): Not well controlled, patient has history of gastric sleeve, continues to have bowel issues associated gastric sleeve No significant change in weight, patient has been working on weight loss reports no significant changes Assessment & Plan (06/25/2021 3:24 PM MANAGER OF PROCUREMENT): Not well controlled; patient is status post [...] to malabsorption. Placenta previa 03/30/2010 06/13/2021 Immunizations Immunization Administration Dates Next Due Influenza, Unspecified 06/02/2023,2021,08/21/2021(Deferred: [...] file Legal Sex Female 8:26 PM MANAGER OF PROCUREMENT Gender Identity Not on file Sexual Orientation Not on file Last Filed Vital Signs Vital Sign Reading Time Taken Comments Blood Pressure 121/75 08/10/2024 2:54 PM MANAGER OF PROCUREMENT Pulse 85 08/10/2024 2:54 PM MANAGER OF PROCUREMENT Temperature 36.2 C (97.1 F) 08/10/2024 2:54 PM MANAGER OF PROCUREMENT Respiratory Rate 16 08/10/2024 2:54 PM MANAGER OF PROCUREMENT Oxygen Saturation 98% 08/10/2024 2:54 PM MANAGER OF PROCUREMENT Inhaled Oxygen Concentration - - Weight 119.3 kg (263 lb) 07/20/2024 2:32 PM MANAGER OF PROCUREMENT Height 162.6 cm (5' 4 ) 07/20/2024 2:32 PM MANAGER OF PROCUREMENT Body Mass Index 45.14 07/20/2024 2:32 PM MANAGER OF PROCUREMENT Plan of Treatment Not on file Procedures Procedure Name Priority Date/Time Associated Diagnosis Comments SCAN - RADIOLOGY/IMAGING 08/02/2024 DEXAMETHASONE Routine 07/26/2024 8:06 AM MANAGER OF PROCUREMENT CORTISOL Routine 07/26/2024 8:06 AM MANAGER OF PROCUREMENT FOLATE Routine 07/14/2024 11:30 AM MANAGER OF PROCUREMENT EGFR Routine 07/14/2024 11:10 AM MANAGER OF PROCUREMENT IODINE SERUM,PLASMA Routine 07/14/2024 1 1:10 AM MANAGER OF PROCUREMENT TSH Routine 07/14/2024 11:10 AM MANAGER OF PROCUREMENT THYROID PEROXIDASE ANTIBODY Routine 07/14/2024 11:10 AM MANAGER OF PROCUREMENT TESTOSTERONE, TOTAL AND FREE, SERUM Routine 07/14/2024 11:10 AM MANAGER OF PROCUREMENT T4, FREE Routine 07/14/2024 11:10 AM MANAGER OF PROCUREMENT T3, FREE Routine 07/14/2024 11:10 AM MANAGER OF PROCUREMENT PROGESTERONE Routine 07/14/2024 11:10 AM MANAGER OF PROCUREMENT LUTEINIZING HORMONE (LH) Routine 07/14/2024 11:10 AM MANAGER OF PROCUREMENT LIPID PANEL Routine 07/14/2024 11:10 AM MANAGER OF PROCUREMENT INSULIN, TOTAL Routine 07/14/2024 11:10 AM MANAGER OF PROCUREMENT HEMOGLOBIN A1C Routine 07/14/2024 11:10 AM MANAGER OF PROCUREMENT FOLLICLE STIMULATING HORMONE Routine 07/14/2024 11:10 AM MANAGER OF PROCUREMENT ESTRADIOL Routine 07/14/2024 11:10 AM MANAGER OF PROCUREMENT DHEA-SULFATE Routine 07/14/2024 11:10 AM MANAGER OF PROCUREMENT COMPREHENSIVE METABOLIC PANEL Routine 07/14/2024 11:10 AM MANAGER OF PROCUREMENT ACTH Routine 07/14/2024 11:10 AM MANAGER OF PROCUREMENT DIFFERENTIAL AUTO Routine 07/14/2024 10: 52 AM MANAGER OF PROCUREMENT Iron deficiency VITAMIN B12 Routine 07/14/2024 10:52 AM MANAGER OF PROCUREMENT B12 deficiency VITAMIN D 25 HYDROXY Routine 07/14/2024 10:52 AM MANAGER OF PROCUREMENT Vitamin D deficiency CBC WITH AUTO DIFFERENTIAL Routine 07/14/2024 10:52 AM MANAGER OF PROCUREMENT Iron deficiency IRON PROFILE W/ IBC Routine 07/14/2024 1 0:52 AM MANAGER OF PROCUREMENT Iron deficiency FERRITIN Routine 07/14/2024 10:52 AM MANAGER OF PROCUREMENT Iron deficiency ZINC Routine 07/14/2024 10:52 AM MANAGER OF PROCUREMENT Fatigue, unspecified type SCREENING MAMMOGRAM BILATERAL W BRIAN Schedule Routine, Read Routine (OP Routine) 06/08/2024 4:56 PM MANAGER OF PROCUREMENT Screening mammogram, encounter for HEPATITIS C ANTIBODY Routine 10/12/2023 9:08 AM CDT Screening for STDs (sexually transmitted diseases) from Last 3 Months or Most Recently Relevant to Health Maintenance Results * SCAN - RADIOLOGY/IMAGING (08/02/2024) Anatomical Region Laterality Modality Other us Provider Scanning Final Result * Dexamethasone (07/26/2024 8:06 AM MANAGER OF PROCUREMENT) [facility] Dexamethasone 199 ng/dL [facility] ref Lab Comment: REFERENCE VALUE Baseline: <30 ng/dL 8:00 AM, Following 1 mg Dexamethasone, previous evening: >100 ng/dL 8:00 AM, Following 8 mg Dexamethasone, (4 x 2 mg doses) previous day: >800 ng/dL ADDITIONAL INFORMATION This test was developed and its performance characteristics determined by [facility] in a manner consistent with CLIA requirements. This test has not been cleared or approved by the U.S. Food and Drug Administration. Test Performed by: [facility] [address] [place] [address] Overlay Plastician: Kojo Alvarenga Ph.D.; CLIA# [id number] Testing performed by: [facility], [address] [place] [address], [id number] Blood 07/26/2024 8:06 AM MANAGER OF PROCUREMENT 07/26/2024 12:39 PM MANAGER OF PROCUREMENT Ju Maldonado MD LAB BLOOD ORDERABLES Odalys l Result Performing Organization Address City/[facility] Co de Phone Number [facility] ([place]) [address] [place] [address] [facility] ref Lab * (ABNORMAL) Cortisol (07/26/2024 8:06 AM MANAGER OF PROCUREMENT) Cortisol 0.8(L) 4.8 - 19.5 mcg/dl Comment: Interpretive Data Normal Range: 4.8 - 19.5 mcg/dL; Evening: Half of morning value. This analyte undergoes marked diurnal variation. Ranges indicated apply to morning specimens. Current interpretive data was last revised 2018. Testing performed by: [facility], [address] [place] [address], [id number] Blood 07/26/2024 8:06 AM MANAGER OF PROCUREMENT 07/26/2024 8:07 AM MANAGER OF PROCUREMENT Ju Maldonado MD LAB BLOOD ORDERABLES Odalys l Result Performing Organization Address City/[facility]/ZIP Co de Phone Number [facility] ([place]) [address] [place] [address] * Folate (07/14/2024 11:30 AM MANAGER OF PROCUREMENT) Folic acid 7.9 >=5.0 ng/mL Comment: Hemolysis present. Results may be affected. Testing performed by: [facility], [address] [place] [address], [place]., [address] Blood 07/14/2024 11:3 0 AM MANAGER OF PROCUREMENT 07/14/2024 1:26 PM MANAGER OF PROCUREMENT Ju Maldonado MD LAB BLOOD ORDERABLES Odalys l Result [facility] ([place]) 1 [facility] [place] [address] * eGFR (07/14/2024 11:10 AM MANAGER OF PROCUREMENT) eGFR >90 >=60 mL/min/1. 73 m2 Comment: Interpretive Data Reference Interval Normal >/= 90 mL/min/1.73m2 Mildly decreased* 60 - 89 mL/min/1.73m2 Mildly to moderately decreased 45 - 59 mL/min/1.73m2 Moderately to severely decreased 30 - 44 mL/min/1.73m2 Severely decreased 15 - 29 mL/min/1.73m2 Kidney Failure < 15 mL/min/1.73m2 *Relative to young adult level Estimated glomerular [...] was last reviewed 2021. Testing performed by: [facility], [address] [place] [address], [place]., [address] Blood 07/14/2024 11:1 0 AM MANAGER OF PROCUREMENT 07/14/2024 10:41 PM MANAGER OF PROCUREMENT Ju Maldonado MD LAB BLOOD ORDERABLES Odalys l Result [facility] ([place] 1 [facility] [place] [address] * Iodine serum, plasma (07/14/2024 11:10 AM MANAGER OF PROCUREMENT) Iodine 52 40 - 92 ng/mL [facility] ref Lab Comment: ADDITIONAL INFORMATION This test was developed and its performance characteristics determined by [facility] in a manner consistent with CLIA requirements. This test has not been cleared or approved by the U.S. Food and Drug Administration. Test Performed by: [facility] [address] [place] [address] Overlay Plastician: Kojo Alvarenga Ph.D.; CLIA# [id number] Testing performed by: [facility], [address] [place] [address], [id number] Blood 07/14/2024 11:1 0 AM MANAGER OF PROCUREMENT 07/14/2024 10:34 PM MANAGER OF PROCUREMENT Ju Maldonado MD LAB BLOOD ORDERABLES Odalys l Result [facility] ([place]) [address] [place] [address] [place] [place] [address] [facility] ref Lab * (ABNORMAL) Thyroid peroxidase antibody (TPO) (07/14/2024 11:10 AM MANAGER OF PROCUREMENT) Anti Thyroid Peroxidase 434(H) <=34 IUnits/mL Comment: ATPO Interpretive Data Results may be up to 28% higher in patients receiving Itraconazole. Current interpretive data was last revised 2020. Testing performed by: [facility], [address] [place] [address], [place]., [address] Blood 07/14/2024 11:1 0 AM MANAGER OF PROCUREMENT 07/15/2024 10:04 AM MANAGER OF PROCUREMENT Ju Maldonado MD LAB BLOOD ORDERABLES Odalys l Result [facility] ([place] [address] [place] [address] * Progesterone (07/14/2024 11:10 AM MANAGER OF PROCUREMENT) [facility] Progesterone 2.35 ng/mL Comment: Interpretive Data Males: <0.15 ng/mL Females: Follicular <0.20 ng/mL Ovulation <4.1 ng/mL Luteal 4.1 - 14.5 ng/mL 1st Trimester 11.0 - 44.0 ng/mL 2nd Trimester 25.0 - 83.0 ng/mL 3rd Trimester 59.0 - 214.0 ng/mL Postmenopausal <0.13 ng/mL Current interpretive data was last revised 2021. Testing performed by: [facility], [address] [place] [address]., [id number] Blood 07/14/2024 11:1 0 AM MANAGER OF PROCUREMENT 07/15/2024 10:04 AM MANAGER OF PROCUREMENT Ju Maldonado MD LAB BLOOD ORDERABLES Odalys l Result [facility] ([place] [address] [place] [address] * (ABNORMAL) Insulin, total (07/14/2024 11:10 AM MANAGER OF PROCUREMENT) [facility] Insulin 28.0(H) 2.6 - 25.0 mcIUnit/mL Comment:Testing performed by : [facility], [address] [place] [address], [place]., [id number] Blood 07/14/2024 11:1 0 AM MANAGER OF PROCUREMENT 07/15/2024 10:04 AM MANAGER OF PROCUREMENT Ju Maldonado MD LAB BLOOD ORDERABLES Odalys l Result [facility] ([place] [address] [place] [address] * DHEA-sulfate (07/14/2024 11:10 AM MANAGER OF PROCUREMENT) DHEA-S 73.5 60.9 - 337.0 mcg/dL Comment:Testing performed by : [facility], [address] [place] [address]., [id number] Blood 07/14/2024 11:1 0 AM MANAGER OF PROCUREMENT 07/15/2024 10:04 AM MANAGER OF PROCUREMENT Ju Maldonado MD LAB BLOOD ORDERABLES Odalys l Result Performing Organization Address City/[facility] Co de Phone Number [facility] ([place] 1 [facility] [place] [address] * Estradiol (07/14/2024 11:10 AM MANAGER OF PROCUREMENT) Estradiol 210.0 pg/mL Comment: Interpretive Data Males: 11 43 pg/mL Females: Premenopausal: 31 533 pg/mL Postmenopausal: < 50 pg/mL Patients treated with Fluvestrant (Faslodex) should be tested using an alternate assay such as LC-MS due to potential for cross-reactivity. Estradiol varies widely throughout the menstrual cycle. Current interpretive data was last revised 2024. Testing performed by: [facility], [address] [place] [address]., [id number] Blood 07/14/2024 11:1 0 AM MANAGER OF PROCUREMENT 07/15/2024 10:04 AM MANAGER OF PROCUREMENT Ju Maldonado MD LAB BLOOD ORDERABLES Odalys l Result Performing Organization Address [facility] Co de Phone Number [facility] ([place]) 1 [facility] [place] [address] * ACTH (07/14/2024 11:10 AM MANAGER OF PROCUREMENT) ACTH 7.9 7.0 - 63.0 pg/mL Comment:Testing performed by : [facility], [address] [place] [address]., [id number] Blood 07/14/2024 11:1 0 AM MANAGER OF PROCUREMENT 07/15/2024 10:01 AM MANAGER OF PROCUREMENT Ju Maldonado MD LAB BLOOD ORDERABLES Odalys l Result Performing Organization Address City/[facility]/ZIP Co de Phone Number [facility] ([place]) 1 [facility] [employer] [place] [address] * (ABNORMAL) Testosterone, Total and Free, Serum (07/14/2024 11:10 AM MANAGER OF PROCUREMENT) Testosterone 95(H) 8 - 60 ng/dL [facility] Lab Comment: ADDITIONAL INFORMATION Testing performed by Liquid Chromatography-Tandem Mass Spectrometry (LC-MS/MS). This test was developed and its performance characteristics determined by [facility] in a manner consistent with CLIA requirements. This test has not been cleared or approved by the U.S. Food and Drug Administration. Test Performed by: [facility] [place] [address] Overlay Plastician: Kojo Alvarenga Ph.D.; CLIA# [id number] Testing performed by: [facility], [address] [place] [address]., [id number] Testosterone, free 1.27(H) <0.13 - 0.98 ng/dL [facility] ([place]) Comment: ADDITIONAL INFORMATION This test was developed and its performance characteristics determined by [facility] in a manner consistent with CLIA requirements. This test has not been cleared or approved by the U.S. Food and Drug Administration. Testing performed by: [facility], [address] [place] [address]., [id number] Blood 07/14/2024 11:1 0 AM MANAGER OF PROCUREMENT 07/14/2024 10:34 PM MANAGER OF PROCUREMENT Ju Maldonado MD LAB BLOOD ORDERABLES Odalys l Result Performing Organization Address City/[facility]/ZIP Co de Phone Number [facility] ([place]) [address] [place] [phone] [facility] ref Lab * T3, free (07/14/2024 11:10 AM MANAGER OF PROCUREMENT) Free T3 2.5 2.0 - 4.4 pg/mL Comment:Testing performed by : [facility], [address] [place] [address], [id number] Blood 07/14/2024 11:1 0 AM MANAGER OF PROCUREMENT 07/14/2024 11:10 AM MANAGER OF PROCUREMENT us Ju Maldonado MD LAB BLOOD ORDERABLES Odalys l Result Performing Organization Address City/[facility]/ZIP Co de Phone Number [facility] ([place]) [address] [place] [phone] * TSH (07/14/2024 11:10 AM MANAGER OF PROCUREMENT) [facility] Thyroid Stimulating Hormone 3.45 0.30 - 4.20 mcIUnit/mL Comment:Testing performed by : [facility], [address] [place] [address], [id number] Blood 07/14/2024 11:1 0 AM MANAGER OF PROCUREMENT 07/14/2024 11:10 AM MANAGER OF PROCUREMENT us Ju Maldonado MD LAB BLOOD ORDERABLES Odalys l Result Performing Organization Address [facility]/ZIP Co de Phone Number [facility] ([place]) [address] [place] [phone] * (ABNORMAL) T4, free (07/14/2024 11:10 AM MANAGER OF PROCUREMENT) Free T4 0.88(L) 0.90 - 1.70 ng/dL Comment:Testing performed by : [address], [facility], [address] Blood 07/14/2024 11:1 0 AM MANAGER OF PROCUREMENT 07/14/2024 11:10 AM MANAGER OF PROCUREMENT us Ju Maldonado MD LAB BLOOD ORDERABLES Odalys l Result [facility] ([place]) 1 [facility] [place] [address] * (ABNORMAL) Hemoglobin A1c (07/14/2024 11:10 AM MANAGER OF PROCUREMENT) Hgb A1C 7.0(H) 4.0 - 5.6 % Comment:Testing performed by : [facility], [address] [place] [address]., [id number] Estimated Average Glucose 154 mg/dL [facility] ([place]) Comment: The ADA recommends reporting an estimated Average Glucose (eAG) with all Hemoglobin A1c results using the equation derived from a study of 507 normal and diabetic adults. Minority populations were underrepresented and children were not included. (Diabetes Care 31:9250-1097, 2008). The eAG is not equivalent to a fasting glucose. Testing performed by: [facility], [address] [place] [address]., [id number] Blood 07/14/2024 11:1 0 AM MANAGER OF PROCUREMENT 07/14/2024 11:11 AM MANAGER OF PROCUREMENT Ju Maldonado MD LAB BLOOD ORDERABLES Odalys l Result Performing Organization Address City/[facility] Co de Phone Number CATRINA SalvadorKEKE) 1 [facility] [place] [address] * LH (07/14/2024 11:10 AM MANAGER OF PROCUREMENT) LH 14.1 IUnits/L Comment: Interpretive Data Males: Adults: 1.7 - 8.6 IUnits/L Females: Follicular: 2.4 - 12.6 IUnits/L Ovulation: 14.0 - 95.6 IUnits/L Luteal: 1.0 - 11.4 IUnits/L Postmenopausal: 7.7 - 58.5 IUnits/L Current interpretive data was last revised on 2018. Testing performed by: [facility], [address] [place] [address]., [id number] Blood 07/14/2024 11:1 0 AM MANAGER OF PROCUREMENT 07/15/2024 10:04 AM MANAGER OF PROCUREMENT Ju Maldonado MD LAB BLOOD ORDERABLES Odalys l Result Performing Organization Address City/[facility] Co de Phone Number CATRINA MULLER ([place]) [address] [place] [address] [place] [address] * Follicle stimulating hormone (07/14/2024 11:10 AM MANAGER OF PROCUREMENT) FSH 2.7 IUnits/L Comment: Interpretive Data Male: Adults: 1.5 - 12.4 IUnits/L Female: Follicular: 3.5 - 12.5 IUnits/L Ovulation: 4.7 - 21.5 IUnits/L Luteal: 1.7 - 7.7 IUnits/L Postmenopausal: 25.8 - 134.8 IUnits/L Current interpretive data was last revised 2015. Testing performed by: [facility], [address] [place] [address]., [id number] Blood 07/14/2024 11:1 0 AM MANAGER OF PROCUREMENT 07/15/2024 10:04 AM MANAGER OF PROCUREMENT Ju Maldonado MD LAB BLOOD ORDERABLES Odalys l Result Performing Organization Address [facility] de Phone Number CATRINA MULLER ([place]) [address] [place] [address] [place] [address] * (ABNORMAL) Lipid panel (07/14/2024 11:10 AM MANAGER OF PROCUREMENT) Cholesterol 224(H) 30 - 199 mg/dL Comment: Interpretive Data Ages < or = 19 years Acceptable: <170 mg/dL Borderline high: 170-199 mg/dL High: >or= 200 mg/dL Ages > or = 20 years Desirable: <200 mg/dL Borderline high: 200-239 mg/dL High: >or= 240 mg/dL Literature References: 1. Expert Panel on Integrated Guidelines for Cardiovascular Health and Risk Reduction in Children and Adolescents. Pediatrics 2011;128:S213 2. NCEP Expert Panel. Circulation 2004;110:227 Current Interpretive Data was last revised on 2018. Testing performed by: [facility], [address] [place] [address]., [address] Triglycerides 91 <=149 mg/dL CATRINA MULLER ([place]) Comment: Interpretive Data Ages < or = 9 years Acceptable: <75 mg/dL Borderline high: 75-99 mg/dL High: >or= 100 mg/dL Ages 10 to 20 years Acceptable: <90 mg/dL Borderline high: 90-129 mg/dL High: >or= 130 mg/dL Ages > or = 20 years Desirable: <150 mg/dL Borderline high: 150-199 mg/dL High: 200-499 mg/dL Very high: >or= 499 mg/dL Literature References: 1. Expert Panel on Integrated Guidelines for Cardiovascular Health and Risk Reduction in Children and Adolescents. Pediatrics 2011;128:S213 2. NCEP Expert Panel. Circulation 2004;110:227 Current Interpretive Data was last revised on 2018. Testing performed by: [facility], [address] [place] [address]., [address] HDL 66 >=40 mg/dL CATRINA MULLER ([place]) Comment: Interpretive Data Ages < or = 19 years Acceptable: >45 mg/dL Borderline low: 40-45 mg/dL Low: <40 mg/dL Ages > or = 20 years Desirable: >or= 60 mg/dL Low: <40 mg/dL Literature References: 1. Expert Panel on Integrated Guidelines for Cardiovascular Health and Risk Reduction in Children and Adolescents. Pediatrics 2011;128:S213 2. NCEP Expert Panel. Circulation 2004;110:227 Current Interpretive Data was last revised on 2018. Testing performed by: [facility], [address] [place] [address]., [address] LDL, calculated 142(H) <=129 mg/dL CATRINA MULLER ([place]) Comment: Interpretive Data Ages < or = 19 years Acceptable: <110 mg/dL Borderline high: 110-129 mg/dL High: >or= 130 mg/dL Ages > or = 20 years Optimal: <100 mg/dL Near optimal: 100-129 mg/dL Borderline high: 130-159 mg/dL High: >160 mg/dL Calculated using the Watt LDL-C estimating equation. This equation was implemented on 2024. Prior to this date LDL-C was estimated using the Friedewald equation. Literature References: 1. Expert Panel on Integrated Guidelines for Cardiovascular Health and Risk Reduction in Children and Adolescents. Pediatrics 2011;128:S213 2. NCEP Expert Panel. Circulation 2004;110:227 3. Shukri M et al. RUBIN Cardiol. 2020 November 03;5(5):540-548. doi: 10.1001/jamacardio.2020.0013 Current Interpretive Data was last revised on 2024. Testing performed by: [address] [address] Non-HDL Cholesterol 158 mg/dL CATRINA MULLER ([place]) Comment: Interpretive Data Ages < or = 19 years Acceptable: <120 mg/dL Borderline high: 120-144 mg/dL High: >145 mg/dL Ages > or = 20 years When triglycerides are >200 mg/dL, Non-HDL cholesterol is a secondary target of therapy with treatment goals that are 30 mg/dL greater than the LDL cholesterol target. Literature References: 1. Expert Panel on Integrated Guidelines for Cardiovascular Health and Risk Reduction in Children and Adolescents. Pediatrics 2011;128:S213 2. NCEP Expert Panel. Circulation 2004;110:227 Current Interpretive Data was last revised on 2018. Testing performed by: [address] [address] Chol/HDL ratio 3 FORD MULLER ([place]) Comment:Testing performed by : [address] [address] Blood 07/14/2024 11:1 0 AM MANAGER OF PROCUREMENT 07/14/2024 11:10 AM MANAGER OF PROCUREMENT us Ju Maldonado MD LAB BLOOD ORDERABLES Odalys l Result CATRINA MULLER ([place]) 1 [facility] Department of Laboratories [place], [place] [id number] * (ABNORMAL) Comprehensive metabolic panel (07/14/2024 11:10 AM MANAGER OF PROCUREMENT) Sodium 138 135 - 145 mmol/L Comment:Testing performed by : [address] [address] Potassium, pl 4.3 3.3 - 4.9 mmol/L [facility] ([place]) Comment:Testing performed by : [facility], [address] [place] [address]., [address] Chloride 102 97 - 110 mmol/L [facility] ([place]) Comment:Testing performed by : [facility], [address] [place] [address]., [address] CO2 24 22 - 32 mmol/L [facility] ([place]) Comment:Testing performed by : [address], [address] Anion gap 12 2 - 15 mmol/L [facility] ([place]) Comment:Testing performed by : [address], [address] BUN 14 6 - 25 mg/dL [facility] ([place]) Comment:Testing performed by : [facility], [address] [place] [address], [address] Creatinine 0.60 0.60 - 1.10 mg/dL [facility] ([place]) Comment:Testing performed by : [address], [address] Glucose 109 70 - 199 mg/dL [facility] ([place]) Comment: Interpretive Data Fasting glucose >/= 126 mg/dl is diagnostic for diabetes. Fasting is defined as no caloric intake [...] was last revised 2022. Testing performed by: [facility], [address] [place] [address]., [address] Calcium 8.9 8.5 - 10.3 mg/dL [facility] ([place]) Comment:Testing performed by : [address] [address] Bilirubin, total 0.3 0.1 - 1.2 mg/dL [facility] ([place]) Comment:Testing performed by : [address], [address] Protein, pl 7.3 6.5 - 8.5 g/dL [facility] ([place]) Comment:Testing performed by : [facility], [address] [place] [address], [address] Albumin 4.0 3.5 - 5.0 g/dL [facility] ([place]) Comment:Testing performed by : [facility], [address] [place] [address], [address] Alk phos 96 40 - 130 Units/L [facility] ([place]) Comment:Testing performed by : [facility], [address] [place] [address], [address] ALT 67(H) 7 - 45 Units/L [facility] ([place]) Comment:Testing performed by : [facility], [address] [place] [address], [address] AST 68(H) 10 - 45 Units/L [facility] ([place]) Comment:Testing performed by : [address], [address] Blood 07/14/2024 11:1 0 AM MANAGER OF PROCUREMENT 07/14/2024 11:10 AM MANAGER OF PROCUREMENT us Ju Maldonado MD LAB BLOOD ORDERABLES Odalys l Result [facility] ([place]) 1 [facility] Department [place] [address] * Differential, auto (07/14/2024 10:52 AM MANAGER OF PROCUREMENT) Neutrophil abs 4.0 1.5 - 6.5 K/cumm Comment:Testing performed by : [facility], [address] [place] [address]., [address] Imm gran abs 0.0 0.0 - 0.1 K/cumm [facility] ([place]) Comment:Testing performed by : [address], [address] Lymphocyte abs 1.8 0.8 - 3.3 K/cumm [facility] ([place]) Comment:Testing performed by : [address], [address] Monocyte abs 0.5 0.2 - 0.8 K/cumm [facility] ([place]) Comment:Testing performed by : [facility], [address] [place] [address]., [address] Eosinophil abs 0.1 0.0 - 0.5 K/cumm [facility] ([place]) Comment:Testing performed by : [facility], [address] [place] [address]., [address] Basophil abs 0.1 0.0 - 0.1 K/cumm [facility] ([place]) Comment:Testing performed by : [address] [address] Neutrophil pct 62.5 % [facility] ([place]) Comment: Interpretive Data Percent cell count reference ranges are not reported, since discordance with absolute values may lead to misinterpretation of CBC data. Current Interpretive Data was last revised on 2017. Testing performed by: [address] [address] Imm gran pct 0.3 % [facility] ([place]) Comment: Interpretive Data Percent cell count reference ranges are not reported, since discordance with absolute values may lead to misinterpretation of CBC data. Current Interpretive Data was last revised on 2017. Testing performed by: [address] [address] Lymphocyte pct 28.1 % [facility] ([place]) Comment: Interpretive Data Percent cell count reference ranges are not reported, since discordance with absolute values may lead to misinterpretation of CBC data. Current Interpretive Data was last revised on 2017. Testing performed by: [address] [address] Monocyte pct 7.1 % [facility] ([place]) Comment: Interpretive Data Percent cell count reference ranges are not reported, since discordance with absolute values may lead to misinterpretation of CBC data. Current Interpretive Data was last revised on 2017. Testing performed by: [address] [address] Eosinophil pct 1.1 % [facility] ([place]) Comment: Interpretive Data Percent cell count reference ranges are not reported, since discordance with absolute values may lead to misinterpretation of CBC data. Current Interpretive Data was last revised on 2017. Testing performed by: [address], [place]., [address] Basophil pct 0.9 % CATRINA MULLER ([place]) Comment: Interpretive Data Percent cell count reference ranges are not reported, since discordance with absolute values may lead to misinterpretation of CBC data. Current Interpretive Data was last revised on 2017. Testing performed by: [facility], [address] [place] [address], [address] Blood 07/14/2024 10:5 2 AM MANAGER OF PROCUREMENT 07/14/2024 10:42 PM MANAGER OF PROCUREMENT Chaparro Harris MD LAB BLOOD ORDERABLES Odalys l Result Performing Organization Address City/[facility] Co de Phone Number CATRINA MULLER ([place]) 1 [facility] [employer] [place] [address] * (ABNORMAL) Iron profile w/ IBC (07/14/2024 10:52 AM MANAGER OF PROCUREMENT) Pathologist [facility] Iron 39 35 - 145 mcg/dl Comment:Testing performed by : [facility], [address] [place] [address], [address] TIBC 380 250 - 400 mcg/dL CATRINA MULLER ([place]) Comment:Testing performed by : [facility], [address] [place] [address], [address] Transferrin saturation 10(L) 20 - 50 % CATRINA MULLER ([place]) Comment:Testing performed by : [facility], [address] [place] [address]., [address] Blood 07/14/2024 10:5 2 AM MANAGER OF PROCUREMENT 07/14/2024 10:42 PM MANAGER OF PROCUREMENT Chaparro Harris MD LAB BLOOD ORDERABLES Odalys l Result Performing Organization Address City/[facility]/ZIP Co de Phone Number CATRINA MULLER ([place]) 1 [facility] [employer] [place] [address] * (ABNORMAL) CBC with auto differential (07/14/2024 10:52 AM MANAGER OF PROCUREMENT) WBC 6.3 3.8 - 9.9 K/cumm Comment:Testing performed by : [address], [address] Hgb 10.6(L) 11.9 - 15.5 g/dL [facility] ([place]) Comment:Testing performed by : [address], [address] Hct 36.5 35.6 - 45.5 % [facility] ([place]) Comment:Testing performed by : [address], [address] Plt 334 150 - 400 K/cumm [facility] ([place]) Comment:Testing performed by : [address], [address] MPV 10.2 9.1 - 12.3 fL [facility] ([place]) Comment:Testing performed by : [address], [address] RBC 4.31 3.90 - 5.20 M/cumm [facility] ([place]) Comment:Testing performed by : [address], [address] MCV 84.7 81.3 - 96.4 fL [facility] ([place]) Comment:Testing performed by : [address], [address] MCH 24.6(L) 27.1 - 33.3 pg [facility] ([place]) Comment:Testing performed by : [address], [address] MCHC 29.0(L) 32.3 - 35.7 g/dL [facility] ([place]) Comment:Testing performed by : [address], [address] RDW CV 14.6 11.1 - 14.9 % [facility] ([place]) Comment:Testing performed by : [address], [address] RDW SD 45.3 35.7 - 48.1 fL [facility] ([place]) Comment:Testing performed by : [address], [address] NRBC abs 0.00 0.00 - 0.01 K/cumm [facility] ([place]) Comment:Testing performed by : [address], [address] Blood 07/14/2024 10:5 2 AM MANAGER OF PROCUREMENT 07/14/2024 10:42 PM MANAGER OF PROCUREMENT Narrative CATRINA MULLER ([place]) - 07/14/2024 10:58 PM MANAGER OF PROCUREMENT fax to [phone] Chaparro Harris MD LAB BLOOD ORDERABLES Odalys l Result Performing Organization Address City/[facility]/ZIP Co de Phone Number CATRINA MULLER ([place]) 1 [facility] [employer] [place] [address] * Zinc (07/14/2024 10:52 AM MANAGER OF PROCUREMENT) Pathologist [facility] Zinc 75 60 - 106 mcg/dL [facility] ref Lab Comment: ADDITIONAL INFORMATION This test was developed and its performance characteristics determined by [facility] in a manner consistent with CLIA requirements. This test has not been cleared or approved by the U.S. Food and Drug Administration. Test Performed by: [facility] [place] [address] Overlay Plastician: Kojo Alvarenga Ph.D.; CLIA# [id number] Testing performed by: [address], [address] Blood 07/14/2024 10:5 2 AM MANAGER OF PROCUREMENT 07/14/2024 10:42 PM MANAGER OF PROCUREMENT Chaparro Harris MD LAB BLOOD ORDERABLES Odalys l Result Performing Organization Address [facility]/ZIP Co de Phone Number CATRINA MULLER ([place]) 1 [facility] [employer] [place] [address] [facility] ref Lab * Vitamin D 25 hydroxy (07/14/2024 10:52 AM MANAGER OF PROCUREMENT) Vitamin D 25-OH 30 30 - 80 ng/mL Comment:Testing performed by : [address], [address] Blood 07/14/2024 10:5 2 AM MANAGER OF PROCUREMENT 07/14/2024 10:42 PM MANAGER OF PROCUREMENT Chaparro Harris MD LAB BLOOD ORDERABLES Odalys l Result CATRINA MULLER ([place]) 1 [facility] [place] [address] * Ferritin (07/14/2024 10:52 AM MANAGER OF PROCUREMENT) Ferritin 15 15 - 150 ng/mL Comment:Testing performed by : [facility], [address] [place] [address], [address] Blood 07/14/2024 10:5 2 AM MANAGER OF PROCUREMENT 07/14/2024 10:42 PM MANAGER OF PROCUREMENT Chaparro Harris MD LAB BLOOD ORDERABLES Odalys l Result Performing Organization Address [facility]/ZIP Co de Phone Number CATRINA MULLER ([place]) 1 [facility] [place] [address] * Vitamin B12 (07/14/2024 10:52 AM MANAGER OF PROCUREMENT) Vitamin B12 492 230 - 1,250 pg/mL Comment:Testing performed by : [facility], [address] [place] [address], [id number] Blood 07/14/2024 10:5 2 AM MANAGER OF PROCUREMENT 07/14/2024 10:42 PM MANAGER OF PROCUREMENT Chaparro Harris MD LAB BLOOD ORDERABLES Odalys l Result CATRINA MULLER ([place]) 1 [facility] [place] [address] * Screening Mammogram Bilateral W Brian (06/08/2024 4:56 PM MANAGER OF PROCUREMENT) Anatomical Region Laterality Modality Breast Bilateral Mammography 06/09/2024 11:3 5 AM MANAGER OF PROCUREMENT Impressions 06/09/2024 11:35 AM MANAGER OF PROCUREMENT No evidence of malignancy in either breast. FINAL ASSESSMENT: BI-RADS Category 1: Negative. RECOMMENDATION: Recommend return for annual screening mammogram in 12 months. Electronically signed by: Sonya Olsen M.D. Narrative 06/09/2024 11:35 AM MANAGER OF PROCUREMENT EXAMINATION: BILATERAL SCREENING MAMMOGRAM COMPARISON: All prior mammograms dating back to 2021. TECHNIQUE: Full-field 2D and digital breast tomosynthesis (DBT) images were obtained. CAD was utilized. BREAST PARENCHYMAL COMPOSITION: The breasts are almost entirely fatty. FINDINGS: There [...] in accordance with current CDC screening recommendations. Reactive: Positive for HCV antibodies. This may represent current or past HCV infection. Supplemental molecular testing will be automatically performed to determine current infection status in accordance with current CDC screening recommendations. Interpretive data was last revised on 2019. Blood 10/12/2023 9:08 AM CDT 10/12/2023 2:28 PM CDT Shivani Manning MD LAB MICROBIOLOGY - GENERAL O RDERABLES Final Result CATRINA [address] [place] [address] from Last 3 Months or Most Recently Relevant to Health Maintenance Insurance [facility] Advance Directives For more information, please contact: [phone] * Full Code (Latest Code Status on File) Date Activated Date Inactivated Comments 11/27/2021 8:51 AM 11/27/2021 4:54 PM * Full Code Date Activated Date Inactivated Comments 11/27/2021 8:51 AM 11/27/2021 8:51 AM * Full Code Date Activated Date Inactivated Comments 02/09/2019 1:46 PM 02/09/2019 7:27 PM Care Teams Bookkeeping Manager Relationship Specialty Start Date End Date Chaparro Harris MD [address] [place] [address] PCP - General Family Medicine 10/01/21 Jeff Umanzor MD [address] [place] [address] Referring Physician Obstetrics and Gynecology 08/10/23
--- OUTSIDE RECORDS SUMMARY | 2024-09-23 13:13 | XMS_ITS | Clinical Summary ---
Author Organization [facility] Address [address] [place] [address] Care Team Providers Care Flame Cutting Machine Operator Name Role Phone Chaparro Harris MD Primary Care Provider [phone] Jeff Umanzor MD Unavailable [phone] Allergies Active Allergy Reactions Criticality Noted Date Comments Nsaids (Non-Steroidal Anti-Inflammatory Drug) Other (See comments) Low Avoids due to weight loss surgery Medications omeprazole (PriLOSEC) 20 mg capsule Take 1 capsule (20 mg total) by mouth daily as needed Active cyanocobalamin (Vitamin B-12) 1,000 mcg/mL injection Inject 1 mL (1,000 mcg total) into the muscle as instructed every 30 (thirty) days 1 mL 5 07/15/19 26 Active syringe-needle, safety,disp unt 1 mL 25 [...] 5 days 100 mL 3 5 09/05/19 25 Active Problems Problem Noted Date Diagnosed Date [...] or CMV - given recent travel to [place] w nausea/diarrhea, 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 Assessment & Plan (09/10/2021 1:05 PM TRANSFER STATION ATTENDANT): Stable, well controlled; TSH at target Continue to check TSH related, no need for thyroid hormone at this time Assessment & Plan (06/25/2021 3:22 PM TRANSFER STATION ATTENDANT): Stable, well controlled; continues to follow with Endocrinology; last TSH was normal, ultrasound reviewed No current medications AME (generalized anxiety disorder) 05/26/2018 Assessment & Plan (06/14/2024 3:04 PM TRANSFER STATION ATTENDANT): Not well controlled, acutely worsened due to [...] BID Assessment & Plan (08/04/2022 4:52 PM TRANSFER STATION ATTENDANT): Not well controlled; worsening; patient reports multiple [...] daily Assessment & Plan (09/10/2021 1:04 PM TRANSFER STATION ATTENDANT): Not well controlled, continues to have elevated anxiety and panic attacks, severe anxiety associated with small health concerns Patient reports no relief previously with Lexapro sertraline Patient is unclear if she needs daily medications Continue bupropion 150 mg daily, Valium 5 mg nightly Assessment & Plan (06/25/2021 3:21 PM TRANSFER STATION ATTENDANT): Stable, improving; patient reports decreased panic attacks on sertraline Continue Zoloft 50 mg daily, hydroxyzine 25 mg t.i.d. p.r.n. for panic attacks Iron deficiency anemia secon jammie to inadequate dietary iron intake 02/04/2018 Assessment & Plan (09/15/2022 5:09 PM CDT): Stable, patient has iron infusion scheduled Assessment & Plan (09/10/2021 1:04 PM TRANSFER STATION ATTENDANT): Stable, improving; no evidence of anemia or iron deficiency at this time; continue to monitor with regular CBCs Assessment & Plan (06/25/2021 3:22 PM TRANSFER STATION ATTENDANT): Follows with Hematology for iron infusions Low [...] w/r/t gut microbiome. Referred to ADA and [place] websites for additional information on topics including glycemic index/carbohydrate choices, protein sources. 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 Assessment & Plan (06/25/2021 3:23 PM TRANSFER STATION ATTENDANT): Postsurgical changes, secondary to gastric sleeve in [...] been working on weight loss; follows with hot mill tin roller, cutting back on coffee and trying to eat better Encourage 30 minutes moderate intensity exercise 5 days per week Assessment & Plan (09/10/2021 1:05 PM TRANSFER STATION ATTENDANT): Not well controlled, patient has history of gastric sleeve, continues to have bowel issues associated gastric sleeve No significant change in weight, patient has been working on weight loss reports no significant changes Assessment & Plan (06/25/2021 3:24 PM TRANSFER STATION ATTENDANT): Not well controlled; patient is status post [...] Type Department Care Team Description 09/05/2024 Telephone [facility] [address] [place] [address] Eneida Sandoval RN 08/30/2024 Orders Only [facility] Department of Otolaryngology Head-Neck Division [address] Floor [address] [place] [address] Darline Messina PA 08/16/2024 Telephone [facility] Medical Group [facility] [address] [place] [address] Olga Maharaj MD 08/11/2024 Telephone [facility] [address] [place] [address] Blanca Christopher RN Forms Request 08/10/2024 2:30 PM TRANSFER STATION ATTENDANT Infusion [address] [address] Other specified intestinal malabsorption (Primary Dx); Iron deficiency anemia secondary to inadequate dietary iron intake 08/03/2024 2:30 PM TRANSFER STATION ATTENDANT Infusion [address] [address] Other specified intestinal malabsorption (Primary Dx); Iron deficiency anemia secondary to inadequate dietary iron intake 08/03/2024 Telephone [facility] [address] [address] Chaparro Harris MD Additional Services Or Orders 08/02/2024 Orders Only [facility] [address] [place] [address] Scanning, Provider 07/27/2024 2:30 PM TRANSFER STATION ATTENDANT Infusion [address] [address] Other specified intestinal malabsorption (Primary Dx); Iron deficiency anemia secondary to inadequate dietary iron intake 07/26/2024 8:05 AM TRANSFER STATION ATTENDANT Lab [facility] [address] [place] [address] 07/25/2024 Telephone [facility] [address] [address] Blanca Christopher, RN Forms Request 07/25/2024 Orders Only [facility] Medical Group Diabetes Endocrine Care at [address] [place] [phone] 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 [place] [address] Olga Sandoval RN 07/21/[address] [place] [address] Chaparro Harris MD 07/20/2024 3:00 PM TRANSFER STATION ATTENDANT Office Visit [facility] Department of Otolaryngology Head-Neck Division [address] [facility] [place] [address] Darline Messina PA Geographic tongue (Primary Dx); Other lesions of oral mucosa 07/18/2024 Telephone [facility] [address] [place] [address] Blanca Christopher RN Additional Services Or Orders 07/15/2024 Telephone [facility] [address] [place] [address] Jody Jrodan RN 07/14/2024 11:15 AM TRANSFER STATION ATTENDANT Lab [facility] [address] [place] [address] 07/14/2024 10:55 AM TRANSFER STATION ATTENDANT Lab [facility] [address] [place] [phone] Fatigue, unspecified type; Iron deficiency; Vitamin D deficiency; B12 deficiency 07/14/2024 Telephone [facility] [address] [place] [address] Eneida Sandoval RN 07/12/2024 Orders Only [facility] Minimally Invasive Surgery [address] [facility] Medical Office Building [address] [place] [phone] Liana Bishop, ALEXANDER Gastroesophageal reflux disease without esophagitis (Primary Dx); Morbid obesity (HCC); S/P laparoscopic sleeve gastrectomy 07/12/2024 Telephone [facility] ENT [address] [facility] Advanced Medicine 11th [place] [address] [place] [address] Vanessa Beck MS 07/07/2024 Telephone [facility] [address] [place] [address] Martha Stinson, ALEXANDER from Last 3 Months Immunizations Immunization Administration Dates Next Due Influenza, Unspecified 06/02/2023,2021,08/21/2021(Deferred: Patient Refused),04/17/2021,04/16/2021(Deferred: Patient Refused),07/06/2020(Deferred: Patient Refused) Tdap 05/26/2018,07/06/2017 Surgical History Surgery Date Site/Laterality Comments [facility] DELIVERY ONLY X 5 SLEEVE GASTROPLASTY 07/06/2015 - 07/05/2016 TUBAL LIGATION COLONOSCOPY 11/27/2021 LAPAROSCOPIC APPENDECTOMY BARIATRIC SURGERY Medical History Medical History Date Comments B12 deficiency Iron deficiency Fatigue History of nephrolithiasis 2015 Weight loss Hematuria Thyroid disease Vern's disease [...] on file Legal Sex Female 8:26 PM TRANSFER STATION ATTENDANT Gender Identity Not on file Sexual Orientation Not on file Obstetrics History Para Term AB IAB SAB Ectopic Multiple Livin g Live Births 6 6 4 2 4 4 Date Outcome GA Total Labor Labor/2nd/3rd Weight Sex Type Anes PTL Sepideh A1 A5 Name Clin 1998 Term F CS-Cl assic al Livin g 2000 Demis e 2005 Term CS-LT ranv Livin g 2007 Term M CS-Cl assic al Livin g 2009 33w 5d 2.496 kg (5 lb 8 oz) M CS-Cl assic al Livin g 8 8 MAO ,BABY BOY MICHELLE Tomás Trejo MD Delivery Location:[facility] 2011 Term C-Sec tion Last Filed Vital Signs Vital Sign Reading Time Taken Comments Blood Pressure 121/75 08/10/2024 2:54 PM TRANSFER STATION ATTENDANT Pulse 85 08/10/2024 2:54 PM TRANSFER STATION ATTENDANT Temperature 36.2 C (97.1 F) 08/10/2024 2:54 PM TRANSFER STATION ATTENDANT Respiratory Rate 16 08/10/2024 2:54 PM TRANSFER STATION ATTENDANT Oxygen Saturation 98% 08/10/2024 2:54 PM TRANSFER STATION ATTENDANT Inhaled Oxygen Concentration - - Weight 119.3 kg (263 lb) 07/20/2024 2:32 PM TRANSFER STATION ATTENDANT Height 162.6 cm (5' 4 ) 07/20/2024 2:32 PM TRANSFER STATION ATTENDANT Body Mass Index 45.14 07/20/2024 2:32 PM TRANSFER STATION ATTENDANT Plan of Treatment Health Maintenance Due Date Last Done Comments Albumin Creatinine Ratio, Urine 1983 Cervical Cancer Screening 1983 Dilated Eye Exam 1983 Foot Exam 1983 Varicella Vaccines (1 of 2 - 13+ 2-dose series) 1996 Regular Well Visit/Exam 18-64 2001 Pneumococcal vaccine <65 (1 of 2 - PCV) 2002 Depression Screening 12/16/2024 12/17/2023, 06/02/2023, 12/05/2022, Additional history exists Hemoglobin A1C 01/11/2025 07/14/2024, 05/07, 02/01/2018 Breast Cancer Screening-Mammogram 06/08/2025 06/08/2024, 06/01/2023, 06/01/2023, Additional history exists Lipid Panel 07/14/2025 07/14/2024, 04/0 01/2022, 04/23/2021, Additional history exists eGFR 07/14/2025 07/14/2024, 06/0 12/2023, 04/12/2022, Additional history exists DTaP/Tdap/Td Vaccine (3 - [...] RADIOLOGY/IMAGING 08/02/2024 DEXAMETHASONE Routine 07/26/2024 8:06 AM TRANSFER STATION ATTENDANT CORTISOL Routine 07/26/2024 8:06 AM TRANSFER STATION ATTENDANT FOLATE Routine 07/14/2024 11:30 AM TRANSFER STATION ATTENDANT EGFR Routine 07/14/2024 11:10 AM TRANSFER STATION ATTENDANT IODINE SERUM,PLASMA Routine 07/14/2024 1 1:10 AM TRANSFER STATION ATTENDANT TSH Routine 07/14/2024 11:10 AM TRANSFER STATION ATTENDANT THYROID PEROXIDASE ANTIBODY Routine 07/14/2024 11:10 AM TRANSFER STATION ATTENDANT TESTOSTERONE, TOTAL AND FREE, SERUM Routine 07/14/2024 11:10 AM TRANSFER STATION ATTENDANT T4, FREE Routine 07/14/2024 11:10 AM TRANSFER STATION ATTENDANT T3, FREE Routine 07/14/2024 11:10 AM TRANSFER STATION ATTENDANT PROGESTERONE Routine 07/14/2024 11:10 AM TRANSFER STATION ATTENDANT LUTEINIZING HORMONE (LH) Routine 07/14/2024 11:10 AM TRANSFER STATION ATTENDANT LIPID PANEL Routine 07/14/2024 11:10 AM TRANSFER STATION ATTENDANT INSULIN, TOTAL Routine 07/14/2024 11:10 AM TRANSFER STATION ATTENDANT HEMOGLOBIN A1C Routine 07/14/2024 11:10 AM TRANSFER STATION ATTENDANT FOLLICLE STIMULATING HORMONE Routine 07/14/2024 11:10 AM TRANSFER STATION ATTENDANT ESTRADIOL Routine 07/14/2024 11:10 AM TRANSFER STATION ATTENDANT DHEA-SULFATE Routine 07/14/2024 11:10 AM TRANSFER STATION ATTENDANT COMPREHENSIVE METABOLIC PANEL Routine 07/14/2024 11:10 AM TRANSFER STATION ATTENDANT ACTH Routine 07/14/2024 11:10 AM TRANSFER STATION ATTENDANT DIFFERENTIAL AUTO Routine 07/14/2024 10: 52 AM TRANSFER STATION ATTENDANT Iron deficiency VITAMIN B12 Routine 07/14/2024 10:52 AM TRANSFER STATION ATTENDANT B12 deficiency VITAMIN D 25 HYDROXY Routine 07/14/2024 10:52 AM TRANSFER STATION ATTENDANT Vitamin D deficiency CBC WITH AUTO DIFFERENTIAL Routine 07/14/2024 10:52 AM TRANSFER STATION ATTENDANT Iron deficiency IRON PROFILE W/ IBC Routine 07/14/2024 1 0:52 AM TRANSFER STATION ATTENDANT Iron deficiency FERRITIN Routine 07/14/2024 10:52 AM TRANSFER STATION ATTENDANT Iron deficiency ZINC Routine 07/14/2024 10:52 AM TRANSFER STATION ATTENDANT Fatigue, unspecified type SCREENING MAMMOGRAM BILATERAL W BRIAN Schedule Routine, Read Routine (OP Routine) 06/08/2024 4:56 PM TRANSFER STATION ATTENDANT Screening mammogram, encounter for HEPATITIS C ANTIBODY Routine 10/12/2023 9:08 AM CDT Screening for STDs (sexually transmitted diseases) from Last 3 Months or Most Recently Relevant to Health Maintenance Results * SCAN - RADIOLOGY/IMAGING (08/02/2024) Anatomical Region Laterality Modality Other Provider Scanning Final Result * Dexamethasone (07/26/2024 8:06 AM TRANSFER STATION ATTENDANT) Pathologist [facility] Dexamethasone 199 ng/dL [place] [facility] Comment: REFERENCE VALUE Baseline: <30 ng/dL 8:00 AM, Following 1 mg Dexamethasone, previous evening: >100 ng/dL 8:00 AM, Following 8 mg Dexamethasone, (4 x 2 mg doses) previous day: >800 ng/dL ADDITIONAL INFORMATION This test was developed and its performance characteristics determined by [facility] in a manner consistent with CLIA requirements. This test has not been cleared or approved by the U.S. Food and Drug Administration. Test Performed by: [facility] [place] [address] Civilian Jail Officer: Kojo Alvarenga Ph.D.; CLIA# [id number] Testing performed by: [facility], [address] [place] [address], [id number] Blood 07/26/2024 8:06 AM TRANSFER STATION ATTENDANT 07/26/2024 12:39 PM TRANSFER STATION ATTENDANT Ju Maldonado MD LAB BLOOD ORDERABLES Odalys l Result [facility] [place]) 1 [facility] Department [place] [address] [facility] * (ABNORMAL) Cortisol (07/26/2024 8:06 AM TRANSFER STATION ATTENDANT) Pathologist [facility] Cortisol 0.8(L) 4.8 - 19.5 mcg/dl Comment: Interpretive Data Normal Range: 4.8 - 19.5 mcg/dL; Evening: Half of morning value. This analyte undergoes marked diurnal variation. Ranges indicated apply to morning specimens. Current interpretive data was last revised 2018. Testing performed by: [facility], [address] [place] [address]., [id number] Blood 07/26/2024 8:06 AM TRANSFER STATION ATTENDANT 07/26/2024 8:07 AM TRANSFER STATION ATTENDANT Ju Maldonado MD LAB BLOOD ORDERABLES Odalys l Result [facility] [place]) 1 [facility] [employer] [address] * Folate (07/14/2024 11:30 AM TRANSFER STATION ATTENDANT) Folic acid 7.9 >=5.0 ng/mL Comment: Hemolysis present. Results may be affected. Testing performed by: [facility], [address] [place] [address]., [id number] Blood 07/14/2024 11:3 0 AM TRANSFER STATION ATTENDANT 07/14/2024 1:26 PM TRANSFER STATION ATTENDANT Ju Maldonado MD LAB BLOOD ORDERABLES Odalys l Result [facility] ([place]) 1 [facility] [place] [address] * eGFR (07/14/2024 11:10 AM TRANSFER STATION ATTENDANT) eGFR >90 >=60 mL/min/1. 73 m2 Comment: [...] last reviewed 2021. Testing performed by: [facility], [address] [place] [address]., [id number] Blood 07/14/2024 11:1 0 AM TRANSFER STATION ATTENDANT 07/14/2024 10:41 PM TRANSFER STATION ATTENDANT Ju Maldonado MD LAB BLOOD ORDERABLES Odalys l Result Performing Organization Address City/[facility]/ZIP Co de Phone Number [facility] ([place]) 1 [facility] [place] [address] * Iodine serum, plasma (07/14/2024 11:10 AM TRANSFER STATION ATTENDANT) [facility] Iodine 52 40 - 92 ng/mL [place] [facility] Comment: ADDITIONAL INFORMATION This test was developed and its performance characteristics determined by [facility] in a manner consistent with CLIA requirements. This test has not been cleared or approved by the U.S. Food and Drug Administration. Test Performed by: [facility] - [address] [address] Civilian Jail Officer: Kojo Alvarenga Ph.D.; CLIA# [id number] Testing performed by: [facility], [address] [place] [address]., [id number] Blood 07/14/2024 11:1 0 AM TRANSFER STATION ATTENDANT 07/14/2024 10:34 PM TRANSFER STATION ATTENDANT Ju Maldonado MD LAB BLOOD ORDERABLES Odalys l Result Performing Organization Address City/[facility]/ZIP Co de Phone Number [facility] ([place]) 1 [facility] [place] [address] [place] [facility] * (ABNORMAL) Thyroid peroxidase antibody (TPO) (07/14/2024 11:10 AM TRANSFER STATION ATTENDANT) Anti Thyroid Peroxidase 434(H) <=34 IUnits/mL Comment: ATPO Interpretive Data Results may be up to 28% higher in patients receiving Itraconazole. Current interpretive data was last revised 2020. Testing performed by: [facility], [address] [place]., [address] Blood 07/14/2024 11:1 0 AM TRANSFER STATION ATTENDANT 07/15/2024 10:04 AM TRANSFER STATION ATTENDANT Ju Maldonado MD LAB BLOOD ORDERABLES Odalys l Result Performing Organization Address [facility]/ZIP Co de Phone Number [facility] ([place]) [address] [place] [address] [place] [address] * Progesterone (07/14/2024 11:10 AM TRANSFER STATION ATTENDANT) Progesterone 2.35 ng/mL Comment: Interpretive Data Males: <0.15 ng/mL Females: Follicular <0.20 ng/mL Ovulation <4.1 ng/mL Luteal 4.1 - 14.5 ng/mL 1st Trimester 11.0 - 44.0 ng/mL 2nd Trimester 25.0 - 83.0 ng/mL 3rd Trimester 59.0 - 214.0 ng/mL Postmenopausal <0.13 ng/mL Current interpretive data was last revised 2021. Testing performed by: [facility], [address] [place] [address], [place]., [address] Blood 07/14/2024 11:1 0 AM TRANSFER STATION ATTENDANT 07/15/2024 10:04 AM TRANSFER STATION ATTENDANT Ju Maldonado MD LAB BLOOD ORDERABLES Odalys l Result [facility] ([place]) 1 [facility] [place] [address] * (ABNORMAL) Insulin, total (07/14/2024 11:10 AM TRANSFER STATION ATTENDANT) Insulin 28.0(H) 2.6 - 25.0 mcIUnit/mL Comment:Testing performed by : [facility], [address] [place] [address]., [id number] Blood 07/14/2024 11:1 0 AM TRANSFER STATION ATTENDANT 07/15/2024 10:04 AM TRANSFER STATION ATTENDANT Ju Maldonado MD LAB BLOOD ORDERABLES Odalys l Result Performing Organization Address [facility] Co de Phone Number [facility] ([place]) [address] [place] [address] [place] [address] * DHEA-sulfate (07/14/2024 11:10 AM TRANSFER STATION ATTENDANT) DHEA-S 73.5 60.9 - 337.0 mcg/dL Comment:Testing performed by : [facility], [address] [place] [address], [id number] Blood 07/14/2024 11:1 0 AM TRANSFER STATION ATTENDANT 07/15/2024 10:04 AM TRANSFER STATION ATTENDANT Ju Maldonado MD LAB BLOOD ORDERABLES Odalys l Result Performing Organization Address [facility] de Phone Number [facility] ([place]) [address] [place] [address] [place] [address] * Estradiol (07/14/2024 11:10 AM TRANSFER STATION ATTENDANT) Estradiol 210.0 pg/mL Comment: Interpretive Data Males: 11 43 pg/mL Females: Premenopausal: 31 533 pg/mL Postmenopausal: < 50 pg/mL Patients treated with Fluvestrant (Faslodex) should be tested using an alternate assay such as LC-MS due to potential for cross-reactivity. Estradiol varies widely throughout the menstrual cycle. Current interpretive data was last revised 2024. Testing performed by: [facility], [address] [place] [address]., [id number] Blood 07/14/2024 11:1 0 AM TRANSFER STATION ATTENDANT 07/15/2024 10:04 AM TRANSFER STATION ATTENDANT Ju Maldonado MD LAB BLOOD ORDERABLES Odalys l Result [facility] ([place]) 1 [place] [address] * ACTH (07/14/2024 11:10 AM TRANSFER STATION ATTENDANT) ACTH 7.9 7.0 - 63.0 pg/mL Comment:Testing performed by : [facility], 1 [facility], [id number] Blood 07/14/2024 11:1 0 AM TRANSFER STATION ATTENDANT 07/15/2024 10:01 AM TRANSFER STATION ATTENDANT Ju Maldonado MD LAB BLOOD ORDERABLES Odalys l Result Performing Organization Address [facility] Co de Phone Number [facility] ([place]) [address] [place] [address] * (ABNORMAL) Testosterone, Total and Free, Serum (07/14/2024 11:10 AM TRANSFER STATION ATTENDANT) Testosterone 95(H) 8 - 60 ng/dL [facility] Comment: ADDITIONAL INFORMATION Testing performed by Liquid Chromatography-Tandem Mass Spectrometry (LC-MS/MS). This test was developed and its performance characteristics determined by [facility] in a manner consistent with CLIA requirements. This test has not been cleared or approved by the U.S. Food and Drug Administration. Test Performed by: [facility] - [facility] [address] [place] [address] Civilian Jail Officer: Kojo Alvarenga Ph.D.; CLIA# [id number] Testing performed by: [facility], [address] [place] [address]., [id number] Testosterone, free 1.27(H) <0.13 - 0.98 ng/dL [facility] ([place]) Comment: ADDITIONAL INFORMATION This test was developed and its performance characteristics determined by [facility] in a manner consistent with CLIA requirements. This test has not been cleared or approved by the U.S. Food and Drug Administration. Testing performed by: [facility], [address] [place] [address], [id number] Blood 07/14/2024 11:1 0 AM TRANSFER STATION ATTENDANT 07/14/2024 10:34 PM TRANSFER STATION ATTENDANT us Ju Maldonado MD LAB BLOOD ORDERABLES Odalys l Result Performing Organization Address [facility] Co de Phone Number [facility] ([place]) 1 [facility] [place] [address] [place] ref [facility] * T3, free (07/14/2024 11:10 AM TRANSFER STATION ATTENDANT) Free T3 2.5 2.0 - 4.4 pg/mL Comment:Testing performed by : [facility], [address] [place] [address], [id number] Blood 07/14/2024 11:1 0 AM TRANSFER STATION ATTENDANT 07/14/2024 11:10 AM TRANSFER STATION ATTENDANT us Ju Maldonado MD LAB BLOOD ORDERABLES Odalys l Result Performing Organization Address [facility] Co de Phone Number [facility] ([place]) 1 [facility] [place] [address] * TSH (07/14/2024 11:10 AM TRANSFER STATION ATTENDANT) Thyroid Stimulating Hormone 3.45 0.30 - 4.20 mcIUnit/mL Comment:Testing performed by : [facility], [address] [place] [address], [id number] Blood 07/14/2024 11:1 0 AM TRANSFER STATION ATTENDANT 07/14/2024 11:10 AM TRANSFER STATION ATTENDANT us Ju Maldonado MD LAB BLOOD ORDERABLES Odalys l Result Performing Organization Address [facility] Co de Phone Number CATRINA MULLER (KEKE) 1 [place] [address] * (ABNORMAL) T4, free (07/14/2024 11:10 AM TRANSFER STATION ATTENDANT) [facility] Free T4 0.88(L) 0.90 - 1.70 ng/dL Comment:Testing performed by : [facility], [address] [place] [address], [address] Blood 07/14/2024 11:1 0 AM TRANSFER STATION ATTENDANT 07/14/2024 11:10 AM TRANSFER STATION ATTENDANT Ju Maldonado MD LAB BLOOD ORDERABLES Odalys l Result Performing Organization Address [facility] de Phone Number CATRINA MULLER (KEKE) [address] [place] [address] * (ABNORMAL) Hemoglobin A1c (07/14/2024 11:10 AM TRANSFER STATION ATTENDANT) [facility] Hgb A1C 7.0(H) 4.0 - 5.6 % Comment:Testing performed by : [facility], [address] [place] [address], [address] Estimated Average Glucose 154 mg/dL CATRINA MULLER (KEKE) Comment: The ADA recommends reporting an estimated Average Glucose (eAG) with all Hemoglobin A1c results using the equation derived from a study of 507 normal and diabetic adults. Minority populations were underrepresented and children were not included. (Diabetes Care 31:7713-2604, 2008). The eAG is not equivalent to a fasting glucose. Testing performed by: [facility], [address] [place] [address], [address] Blood 07/14/2024 11:1 0 AM TRANSFER STATION ATTENDANT 07/14/2024 11:11 AM TRANSFER STATION ATTENDANT us Ju Maldonado MD LAB BLOOD ORDERABLES Odalys l Result Performing Organization Address [facility] Co de Phone Number CATRINA MULLER (KEKE) [address] [place] [address] * LH (07/14/2024 11:10 AM TRANSFER STATION ATTENDANT) LH 14.1 IUnits/L Comment: Interpretive Data Males: Adults: 1.7 - 8.6 IUnits/L Females: Follicular: 2.4 - 12.6 IUnits/L Ovulation: 14.0 - 95.6 IUnits/L Luteal: 1.0 - 11.4 IUnits/L Postmenopausal: 7.7 - 58.5 IUnits/L Current interpretive data was last revised on 2018. Testing performed by: [facility], [address] [place] [address]., [address] Blood 07/14/2024 11:1 0 AM TRANSFER STATION ATTENDANT 07/15/2024 10:04 AM TRANSFER STATION ATTENDANT Ju Maldonado MD LAB BLOOD ORDERABLES Odalys l Result Performing Organization Address [facility] Co de Phone Number CATRINA MULLER ([place]) [address] [place] [address] [place] [address] * Follicle stimulating hormone (07/14/2024 11:10 AM TRANSFER STATION ATTENDANT) FSH 2.7 IUnits/L Comment: Interpretive Data Male: Adults: 1.5 - 12.4 IUnits/L Female: Follicular: 3.5 - 12.5 IUnits/L Ovulation: 4.7 - 21.5 IUnits/L Luteal: 1.7 - 7.7 IUnits/L Postmenopausal: 25.8 - 134.8 IUnits/L Current interpretive data was last revised 2015. Testing performed by: [facility], [address] [place] [address]., [address] Blood 07/14/2024 11:1 0 AM TRANSFER STATION ATTENDANT 07/15/2024 10:04 AM TRANSFER STATION ATTENDANT us Ju Maldonado MD LAB BLOOD ORDERABLES Odalys l Result Performing Organization Address City/[facility] Co de Phone Number CATRINA MULLER ([place]) [address] Department [place] [address] * (ABNORMAL) Lipid panel (07/14/2024 11:10 AM TRANSFER STATION ATTENDANT) Cholesterol 224(H) 30 - 199 mg/dL Comment: [...] revised on 2018. Testing performed by: [facility], [address] [place] [address]., [address] Triglycerides 91 <=149 mg/dL CATRINA MULLER (KEKE) [...] revised on 2018. Testing performed by: [facility], [address] [place] [address]., [address] HDL 66 >=40 mg/dL CATRINA MULLER (KEKE) [...] revised on 2018. Testing performed by: [facility], [address] [place] [address]., [address] LDL, calculated 142(H) <=129 mg/dL CATRINA MULLER (KEKE) Comment: Interpretive Data Ages < or = 19 years Acceptable: <110 mg/dL Borderline high: 110-129 mg/dL High: >or= 130 mg/dL Ages > or = 20 years Optimal: <100 mg/dL Near optimal: 100-129 mg/dL Borderline high: 130-159 mg/dL High: >160 mg/dL Calculated using the Shukri LDL-C estimating [...] last revised on 2024. Testing performed by: [address] [address] Non-HDL Cholesterol 158 mg/dL CATRINA MULLER (KEKE) [...] revised on 2018. Testing performed by: [facility], [address] [place] [address]., [address] Chol/HDL ratio 3 FORD MULLER (KEKE) Comment:Testing performed by : [facility], [address] [place] [address]., [address] Blood 07/14/2024 11:1 0 AM TRANSFER STATION ATTENDANT 07/14/2024 11:10 AM TRANSFER STATION ATTENDANT Ju Maldonado MD LAB BLOOD ORDERABLES Odalys jennings Result [facility] ([place]) 1 [facility] Department [place] [address] * (ABNORMAL) Comprehensive metabolic panel (07/14/2024 11:10 AM TRANSFER STATION ATTENDANT) Sodium 138 135 - 145 mmol/L Comment:Testing performed by : [facility], [address] [place] [address], [address] Potassium, pl 4.3 3.3 - 4.9 mmol/L [facility] Comment:Testing performed by : [facility], [address] [place] [address], [address] Chloride 102 97 - 110 mmol/L [facility] (KEKE) Comment:Testing performed by : [facility], [address] [place] [address], [address] CO2 24 22 - 32 mmol/L [facility] (KEKE) Comment:Testing performed by : [address], [address] Anion gap 12 2 - 15 mmol/L [facility] ([place]) Comment:Testing performed by : [address], [address] BUN 14 6 - 25 mg/dL [facility] (KEKE) Comment:Testing performed by : [address], [address] Creatinine 0.60 0.60 - 1.10 mg/dL [facility] (KEKE) Comment:Testing performed by : [address], [address] Glucose 109 70 - 199 mg/dL CERNER [...] was last revised 2022. Testing performed by: [facility], [address] [place] [address]., [address] Calcium 8.9 8.5 - 10.3 mg/dL [facility] (KEKE) Comment:Testing performed by : [address] [address] Bilirubin, total 0.3 0.1 - 1.2 mg/dL [facility] (KEKE) Comment:Testing performed by : [address], [address] Protein, pl 7.3 6.5 - 8.5 g/dL [facility] (KEKE) Comment:Testing performed by : [address], [address] Albumin 4.0 3.5 - 5.0 g/dL [facility] (KEKE) Comment:Testing performed by : [address], [address] Alk phos 96 40 - 130 Units/L [facility] (KEKE) Comment:Testing performed by : [address], [address] ALT 67(H) 7 - 45 Units/L [facility] (KEKE) Comment:Testing performed by : [address], [address] AST 68(H) 10 - 45 Units/L [facility] (KEKE) Comment:Testing performed by : [address], [address] Blood 07/14/2024 11:1 0 AM TRANSFER STATION ATTENDANT 07/14/2024 11:10 AM TRANSFER STATION ATTENDANT us Ju Maldonado MD LAB BLOOD ORDERABLES Odalys jennings Result [facility] (KEKE) 1 [facility] Department [place] [address] * Differential, auto (07/14/2024 10:52 AM TRANSFER STATION ATTENDANT) Neutrophil abs 4.0 1.5 - 6.5 K/cumm Comment:Testing performed by : [facility], [address] [place] [address]., [address] Imm gran abs 0.0 0.0 - 0.1 K/cumm [facility] (KEKE) Comment:Testing performed by : [facility], [address] [place] [address], [address] Lymphocyte abs 1.8 0.8 - 3.3 K/cumm [facility] (KEKE) Comment:Testing performed by : [facility], [address] [place] [address], [address] Monocyte abs 0.5 0.2 - 0.8 K/cumm [facility] (KEKE) Comment:Testing performed by : [facility], [address] [place] [address], [address] Eosinophil abs 0.1 0.0 - 0.5 K/cumm [facility] (KEKE) Comment:Testing performed by : [facility], [address] [place] [address], [address] Basophil abs 0.1 0.0 - 0.1 K/cumm [facility] (KEKE) Comment:Testing performed by : [address], [address] Neutrophil pct 62.5 % [facility] (KEKE) Comment: Interpretive Data Percent cell count reference ranges are not reported, since discordance with absolute values may lead to misinterpretation of CBC data. Current Interpretive Data was last revised on 2017. Testing performed by: [address] [address] Imm gran pct 0.3 % [facility] (KEKE) Comment: Interpretive Data Percent cell count reference ranges are not reported, since discordance with absolute values may lead to misinterpretation of CBC data. Current Interpretive Data was last revised on 2017. Testing performed by: [address], [address] Lymphocyte pct 28.1 % [facility] (KEKE) Comment: Interpretive Data Percent cell count reference ranges are not reported, since discordance with absolute values may lead to misinterpretation of CBC data. Current Interpretive Data was last revised on 2017. Testing performed by: [facility], [address] [place] [address]., [address] Monocyte pct 7.1 % [facility] (KEKE) Comment: Interpretive Data Percent cell count reference ranges are not reported, since discordance with absolute values may lead to misinterpretation of CBC data. Current Interpretive Data was last revised on 2017. Testing performed by: [address] [address] Eosinophil pct 1.1 % [facility] (KEKE) Comment: Interpretive Data Percent cell count reference ranges are not reported, since discordance with absolute values may lead to misinterpretation of CBC data. Current Interpretive Data was last revised on 2017. Testing performed by: [address] [address] Basophil pct 0.9 % [facility] (KEKE) Comment: Interpretive Data Percent cell count reference ranges are not reported, since discordance with absolute values may lead to misinterpretation of CBC data. Current Interpretive Data was last revised on 2017. Testing performed by: [address] [address] Blood 07/14/2024 10:5 2 AM TRANSFER STATION ATTENDANT 07/14/2024 10:42 PM TRANSFER STATION ATTENDANT us Chaparro Harris MD LAB BLOOD ORDERABLES Odalys jennings Result CATRINA MULLER (KEKE) 1 [facility] Department [place] [address] * (ABNORMAL) Iron profile w/ IBC (07/14/2024 10:52 AM TRANSFER STATION ATTENDANT) Iron 39 35 - 145 mcg/dl Comment:Testing performed by : [address] [address] TIBC 380 250 - 400 mcg/dL CATRINA MULLER (KEKE) Comment:Testing performed by : [address], [address] Transferrin saturation 10(L) 20 - 50 % CATRIAN MULLER (KEKE) Comment:Testing performed by : [address], [address] Blood 07/14/2024 10:5 2 AM TRANSFER STATION ATTENDANT 07/14/2024 10:42 PM TRANSFER STATION ATTENDANT us Chaparro Harris MD LAB BLOOD ORDERABLES Odalys l Result [facility] (KEKE) 1 [facility] Department [place] [address] * (ABNORMAL) CBC with auto differential (07/14/2024 10:52 AM TRANSFER STATION ATTENDANT) WBC 6.3 3.8 - 9.9 K/cumm Comment:Testing performed by : [address], [address] Hgb 10.6(L) 11.9 - 15.5 g/dL [facility] (KEKE) Comment:Testing performed by : [address], [address] Hct 36.5 35.6 - 45.5 % [facility] (KEKE) Comment:Testing performed by : [address], [address] Plt 334 150 - 400 K/cumm [facility] (KEKE) Comment:Testing performed by : [address], [address] MPV 10.2 9.1 - 12.3 fL [facility] (KEKE) Comment:Testing performed by : [address], [address] RBC 4.31 3.90 - 5.20 M/cumm [facility] (KEKE) Comment:Testing performed by : [address], [address] MCV 84.7 81.3 - 96.4 fL [facility] (KEKE) Comment:Testing performed by : [address], [address] MCH 24.6(L) 27.1 - 33.3 pg [facility] (KEKE) Comment:Testing performed by : [address], [address] MCHC 29.0(L) 32.3 - 35.7 g/dL CATRINA MULLER (KEKE) Comment:Testing performed by : [facility], [address] [place] [address], [address] RDW CV 14.6 11.1 - 14.9 % CATRINA MULLER (KEKE) Comment:Testing performed by : [facility], [address] [place] [address], [address] RDW SD 45.3 35.7 - 48.1 fL CATRINA MULLER (KEKE) Comment:Testing performed by : [facility], [address] [place] [address], [address]68 NRBC abs 0.00 0.00 - 0.01 K/cumm CATRINA MULLER (KEKE) Comment:Testing performed by : [facility], [address] [place] [address], [address] Blood 07/14/2024 10:5 2 AM TRANSFER STATION ATTENDANT 07/14/2024 10:42 PM TRANSFER STATION ATTENDANT Narrative CATRINA MULLER (KEKE) - 07/14/2024 10:58 PM TRANSFER STATION ATTENDANT fax to [phone] us Chaparro Harris MD LAB BLOOD ORDERABLES Odalys jennings Result CATRINA YOHANA ([place]) 1 [facility] Department [place] [address] * Zinc (07/14/2024 10:52 AM TRANSFER STATION ATTENDANT) [facility] Signature Zinc 75 60 - 106 mcg/dL [place] [facility] Comment: ADDITIONAL INFORMATION This test was developed and its performance characteristics determined by [facility] in a manner consistent with CLIA requirements. This test has not been cleared or approved by the U.S. Food and Drug Administration. Test Performed by: [facility] [address] [place] [address] Civilian Jail Officer: Kojo Alvarenga Ph.D.; CLIA# [id number] Testing performed by: [address] [address] Blood 07/14/2024 10:5 2 AM TRANSFER STATION ATTENDANT 07/14/2024 10:42 PM TRANSFER STATION ATTENDANT Chaparro Harris MD LAB BLOOD ORDERABLES Odalys l Result CATRINA MULLER ([place]) 1 [facility] [place] [address] [facility] * Vitamin D 25 hydroxy (07/14/2024 10:52 AM TRANSFER STATION ATTENDANT) Vitamin D 25-OH 30 30 - 80 ng/mL Comment:Testing performed by : [address], [address] Blood 07/14/2024 10:5 2 AM TRANSFER STATION ATTENDANT 07/14/2024 10:42 PM TRANSFER STATION ATTENDANT Chaparro Harris MD LAB BLOOD ORDERABLES Odalys l Result Performing Organization Address City/[facility]/ZIP Co de Phone Number [facility] ([place]) 1 [facility] [place] [address] * Ferritin (07/14/2024 10:52 AM TRANSFER STATION ATTENDANT) Pathologist [facility] Ferritin 15 15 - 150 ng/mL Comment:Testing performed by : [address], [address] Blood 07/14/2024 10:5 2 AM TRANSFER STATION ATTENDANT 07/14/2024 10:42 PM TRANSFER STATION ATTENDANT Chaparro Harris MD LAB BLOOD ORDERABLES Odalys l Result CATRINA MULLER ([place]) 1 [place] [address] * Vitamin B12 (07/14/2024 10:52 AM TRANSFER STATION ATTENDANT) Vitamin B12 492 230 - 1,250 pg/mL Comment:Testing performed by : [address], [address] Blood 07/14/2024 10:5 2 AM TRANSFER STATION ATTENDANT 07/14/2024 10:42 PM TRANSFER STATION ATTENDANT Chaparro Harris MD LAB BLOOD ORDERABLES Odalys l Result CATRINA MULLER [place] 1 [facility] Department of Laboratories [place], [place] [address] * Screening Mammogram Bilateral W Brian (06/08/2024 4:56 PM TRANSFER STATION ATTENDANT) Anatomical Region Laterality Modality Breast Bilateral Mammography 06/09/2024 11:3 5 AM TRANSFER STATION ATTENDANT Impressions 06/09/2024 11:35 AM TRANSFER STATION ATTENDANT No evidence of malignancy in either breast. FINAL ASSESSMENT: BI-RADS Category 1: Negative. RECOMMENDATION: Recommend return for annual screening mammogram in 12 months. Electronically signed by: Sonya Olsen M.D. Narrative 06/09/2024 11:35 AM TRANSFER STATION ATTENDANT EXAMINATION: BILATERAL SCREENING MAMMOGRAM COMPARISON: All prior [...] - [place]AL [place] [address] [address] Department [place] [address] from Last 3 Months or Most Recently Relevant to Health Maintenance Insurance [facility] Member Subscriber Plan / Payer (Ef fective 2021-Present) Name:Jaswinder Michelle Almita Relation to Subscriber:Self Name:Michelle San Payer ID:[id number] (NAIC) Group ID:Not on file Type:MEDICAID RISK OTHER Address: ATTN: CLAIMS DEPT [address] [facility] [place] [id number] [facility] Advance Directives For more information, please contact: [phone] * Full Code (Latest Code Status on File) Date Activated Date Inactivated Comments 11/27/2021 8:51 AM 11/27/2021 4:54 PM * Full Code Date Activated Date Inactivated Comments 11/27/2021 8:51 AM 11/27/2021 8:51 AM * Full Code Date Activated Date Inactivated Comments 02/09/2019 1:46 PM 02/09/2019 7:27 PM Care Teams Flame Cutting Machine Operator Relationship Specialty Start Date End Date Chaparro Harris MD [address] [place] [address] PCP - General Family Medicine 10/01/21 Jeff Umanzor MD [address] [place] [address] Referring Physician Obstetrics and Gynecology 08/10/23
--- OUTSIDE RECORDS SUMMARY | 2024-09-23 13:13 | XMS_ITS | CONTINUITY OF CARE DOCUMENT ---
Author Name yaima erwin Address Unknown Organization [facility] Address [address] [facility] [address] [place] [address] Phone [phone] Care Team Providers Care Hot Mill Roller Name Role Phone Peter PINK, Daisy Unavailable ANAYA PINK, RAJWINDER Unavailable INSURANCE PROVIDERS Payer name Policy type / Coverage type Sentinel red libertarian ID [facility] [id number] Other [id number] HEALTHCARE AND FAMILY SERVICES Medicaid 0 [id number]
--- OUTSIDE RECORDS SUMMARY | 2024-09-23 13:13 | XMS_ITS ---
Author Organization [facility] Address [address] [place] [address] Care Team Providers Care Raspberry Checker Name Role Phone Ju Maldonado Primary Care Provider REASON FOR VISIT 6 WEEK FOLLOW UP Encounters Encounter Location Date Provider Diagnosis [facility] - Ju Maldonado [address] [place] [address] 08/25/2024 Ju Maldonado Plan Of Treatment No Information Progress Notes * Jazmyn LEVIDOB:1985 (39 yo F)Acc No.[id number]:08/25/2024 Progress Notes Patient: Jazmyn ARIAS Provider: Almita Maldonado MD :1985 A ge:39 Y S ex:Female Date:08/25/2024 Address:[address] [facility] Subjective: * Chief Complaints: * 1 . 6 WEEK FOLLOW UP. * Medical History: Objective: * Vitals: Assessment: Plan: * Treatment: * Billing Information: * Visit Code: * Procedure Codes: * Electronic signature of Alban Maldonado MD on 09/23/2024 at 01:13 PM CDT Sign off status: Pending * Provider: Almita Maldonado MD Date: 08/25/2024 Generated for Jose Alberto sims/Herb/eTransmitting on: 0 09/23/2024 01:13 PM CDT
--- OUTSIDE RECORDS SUMMARY | 2024-09-23 13:13 | XMS_ITS ---
Author Organization [facility] Address [address] [place] [address] Care Team Providers Care Die Cut Operator Name Role Phone Ju Maldonado Primary Care Provider REASON FOR VISIT Attempting to get INS information. Encounters Encounter Location Date Provider Diagnosis [facility] - Ju Maldonado [address] [place] [address] 08/01/2024 Ju Maldonado Plan Of Treatment No Information Progress Notes * Jazmyn LEVIDOB:1985 (39 yo F)Acc No.[id number]:08/01/2024 Patient: Jazmyn ARIAS :1985 A ge:39 Y S ex:Female Address:[address] [place], [address] * true * Date: Generated for Printi ng/Faxing/eTransmitting on: 0 09/23/2024 01:12 PM CDT
--- OUTSIDE RECORDS SUMMARY | 2024-09-23 13:13 | XMS_ITS ---
Author Organization [facility] Address [address] [place] [address] Care Team Providers Care Director Of Medical Staff Services Name Role Phone Ju Maldonado Primary Care Provider [phone] REASON FOR VISIT maciej benz Encounters Encounter Location Date Provider Diagnosis [facility] [address] [place] [address] 08/02/2024 Ju Maldonado Plan Of Treatment No Information Progress Notes * AMITA LoubrianaDOB:1985 (39 yo F)Acc No.[id number]:08/02/2024 Patient: Jazmyn ARIAS :1985 A ge:39 Y S ex:Female Address:[address] [place], [address] * true * Date: Generated for Jose Alberto sims/Faindiag/eTransmitting on: 0 09/23/2024 01:13 PM CDT
--- OUTSIDE RECORDS SUMMARY | 2024-09-23 13:13 | XMS_ITS | Clinical Summary ---
Author Organization [facility] [employer] Address [address] [place] [address] Care Team Providers Care Gallery Or Museum Guide Name Role Phone Addie Jennings MD Unavailable [phone] Thang Heck MD Primary Care Provider [phone] Source Comments [facility],non-owned Affiliates and Associated Physician Practices is amultiple site organization consisting of ambulatory clinics and hospital sitesin [place], [place], [place] and [place]. This disclosure is being madepursuant to the Care Everywhere program and may not contain all information available regarding this patient. Last updated 18.[facility] Allergies Active Allergy Reactions Criticality Noted Date Comments Nsaids Other Low Reaction: Medications * Be aware that medications may not be up to date on this document. Alwaysverify current medications with the patient. Medication Sig Dispensed Refills Start Date End Date Status HYDROcodone-acetami nophen ([place]) 5-325 MG tablet TAKE 1 OR 2 [...] Comments Blood Pressure 136/73 07/03/2022 3:58 PM CINEMA OPERATOR Pulse 85 07/03/2022 3:58 PM CINEMA OPERATOR Temperature 37.1 C (98.7 F) 07/03/2022 3:58 PM CINEMA OPERATOR Respiratory Rate 16 07/03/2022 3:58 PM CINEMA OPERATOR Oxygen Saturation 100% 07/03/2022 3:58 PM CINEMA OPERATOR Inhaled Oxygen Concentration - - Weight 117.9 kg (260 lb) 07/03/2022 3:58 PM CINEMA OPERATOR Height 162.6 cm (5' 4 ) 07/03/2022 3:58 PM CINEMA OPERATOR Body Mass Index 44.63 07/03/2022 3:58 PM CINEMA OPERATOR Plan of Treatment Health Maintenance Due Date Last Done Comments PAP SMEAR 1983 HIV SCREENING 1998 HEPATITIS C SCREENING 05/04/2001 HEPATITIS B VACCINE (1 of 3 - 19+ 3-dose series) 2002 LIPID TESTING 12/29/2023 12/28/2018 COVID-19 VACCINE (1 - 2023-2 5 season) 2024 INFLUENZA VACCINE [...] complete this topic MENINGOCOCCAL (Group B) VACCINE SHARED DECISION-MAKING Aged Out No longer eligible b ased on patient's age to complete this topic MENINGOCOCCAL GROUPS A/C/Y/W VACCINE Aged Out No longer eligible b [...] (BMI) of 40.0 to 44.9 in adult MAMMO BILAT DIAGNOSTIC Routine 05/07/2018 9:24 AM [...] Resulting Agency Comment Lab Testing performed at: [address] [id number] Lottie Verduzco BRAKE LINING FINISHER [facility] HOUSE OPERATOR LAB - CHEMI STRY ORDERABLES [facility] ACCOUNT BILL [address] [place] [address] * ALIZE DIAG DIRECT DIG IMAGE BILATERAL [id number] (05/07/2018 9:24 AM CDT) Anatomical Region Laterality Modality Breast Bilateral Mammography 05/07/2018 9:36 AM CDT Addenda Addendum by Mellisa Drake MD on 06/04/2018 11:19 AM CINEMA OPERATOR Previous mammograms from [facility] on 04/10/2016 and 03/27/2016 are now available for review. There has been no interval change in the appearance of either breast compared with the prior studies. The impression, assessment, and recommendation remain unchanged: IMPRESSION: 1. No evidence of malignancy in either [...] AM Impressions 05/07/2018 10:53 AM CDT 1. No evidence of malignancy in either [...] participate in the care of your patient. [facility] utilizes [employer] as a reminder system to notify patients [...] PRIOR: Previous mammogram was performed at [facility]. This was not available for review at [...] seen. There is no right axillary adenopathy. Procedure Note Mellisa Drake MD - 05/07/2018 EXAMINATION: Digital bilateral diagnostic mammogram and targeted right breast ultrasound on 05/07/2018. Low-dose digital breast tomosynthesis examination was performed with 3D acquisitions and synthetic 2D mammogram. Computer assisted detection was utilized. PRIOR: Previous mammogram was performed at [facility]. This was not available for review at [...] participate in the care of your patient. [facility] utilizes [employer] as a reminder system to notify patients of their next recommended mammogram. Reading Radiologist: Mellisa Drake MD on 05/07/2018 at 10:53 AM Mellisa Drake MD MAMMO ORDERABLES from Last 3 Months or Most Recently Relevant to Health Maintenance Advance Directives * Full Code (Latest Code Status on File) Date Activated Date Inactivated Comments 03/30/2010 2:48 PM 04/09/2010 5:05 AM Care Teams Gallery Or Museum Guide Relationship Specialty Start Date End Date Thang Heck MD [address] [place] [address] PCP - General 06/10/22 Addie Jennings MD [address] [place] [id number] Endocrinology 01/31/20
== END 2024-09-23 12:34 | disposition home or self-care (01) ==
LOC: ANHIMG 12:35
PROVIDERS: PCP Hospitalist; Visit Provider Student in an Organized Health Care Education/Training Program
DX: N64.4 Mastodynia (principal)
CPT/HCPCS: 77062; 77066; G0279

== ENCOUNTER 2024-11-08 08:27 | Outpatient (CLI) | payer OTHER, SELFPAY ==
--- NOTE | ~2024-11-08 | US_ITS ---
US breast LT limited INDICATION: Palpable left breast abnormality. TECHNIQUE: Dedicated Limited left breast ultrasound COMPARISON: No prior studies for comparison. FINDINGS: The left breast is/are composed of normal heterogeneous echotexture without focal solid or cystic mass. IMPRESSION: 1: Normal left breast ultrasound. Routine yearly screening mammogram and regular clinical breast examination are recommended. BI-RADS CATEGORY 1 - NEGATIVE Reviewed, dictated and finalized at location A.
--- OUTSIDE RECORDS SUMMARY | 2024-11-08 08:40 | XMS_ITS ---
Author Organization [facility] Address [address] [facility] [address] [place] [address] Phone Care Team Providers Care Mobile Qa Tester Name Role Phone Provider, None Primary Care Provider Unavailblank e [facility] Status:Enrolled (Active) Start date:08/03/2024 Enrollment date:08/03/2024 Related social drivers of health:Intimate Partner Violence, Social Connections, Alcohol Use, Financial Resource Strain, Depression, Stress, Physical Activity, Food Insecurity, Transportation Needs, Housing Stability, Utilities Continued Care and Services Coordination
--- OUTSIDE RECORDS SUMMARY | 2024-11-08 08:40 | XMS_ITS | Clinical Summary ---
Author Organization [facility] Address [address] [place] [address] Care Team Providers Care Hat Trimmer Name Role Phone Chaparro Harris MD Primary Care Provider [phone] Jeff Umanzor MD Unavailable [phone] Allergies Active Allergy Reactions Criticality Noted Date [...] days 1 mL 07/15/19 25 026 Active syringe-needle,saf ety,disp unt 1 mL 25 gauge x 5/8 syringe Use monthly to draw and inject B12 1 each 07/15/19 25 Active Additional Information Patient not taking.Reported on 09/28/2024 tirzepatide (Mounjaro) 2.5 mg/0.5 mL pen injector injection inject 2.5 mg Subcutaneous weekly for 30 days 07/25/19 25 Active tirzepatide (Mounjaro) 5 mg/0.5 mL pen injector injection inject 5 mg Subcutaneous weekly for 90 days 07/25/19 25 Active BD SafetyGlide Shielding REG 1 mL 25 gauge x 5/8 syringe USE MONTHLY TO DRAW AND INJECT B12 DIRECTED. 09/10/19 25 Active TRUEplus Pen Needle 32 gauge x 5/32 needle INJECT VICTOZA ONCE DAILY 07/28/19 25 Active ondansetron ODT (ZOFRAN-ODT) 4 mg disintegrating tablet 08/05/19 25 Active norethindrone (MICRONOR) 0.35 mg tablet daily 07/25/19 25 Active Unithroid 75 mcg tablet TAKE 1 TABLET BY MOUTH DAILY IN THE MORNING ON AN EMPTY STOMACH Active dexAMETHasone (DECADRON) 1 mg tablet 1 tablet Orally at 10 pm night before 8 am cortisol for 1 days 07/12/19 25 Active liraglutide (VICTOZA) 0.6 mg/0.1 mL (18 mg/3 mL) injection ADMINISTER 0.6 MG UNDER THE SKIN DAILY FOR 1 WEEK. INCREASE TO 1.2 MG UNDER THE SKIN 90 DAYS Active hydrOXYzine (ATARAX) 25 mg tabletIndications: anxiety Take 1 tablet (25 mg total) by mouth 3 (three) times a day as needed for itching 90 tablet 1 09/29/19 25 Active ALPRAZolam (XANAX) 0.5 mg tabletIndications: Generalized Anxiety Disorder,Panic Disorder Take 1 tablet (0.5 mg total) by mouth 2 (two) times a day as needed for anxiety 30 tablet 09/29/19 25 Active citalopram (CeleXA) 10 mg tabletIndications: Anxiety with Depression,General ized Anxiety Disorder Take 1 tablet (10 mg total) by mouth daily 90 tablet 1 11/02/19 25 025 Active escitalopram (LEXAPRO) 10 mg tabletIndications: Anxiety with Depression Take 1 tablet (10 mg total) by mouth daily 30 tablet 2 09/29/19 25 025 Discontin ued(Alter musa therapy) Active Problems Problem Noted Date Diagnosed Date Moderate episode of recurrent major depressive d isorder 09/28/2024 Assessment & Plan (09/28/2024 9:15 AM CDT): -Chronic condition -Has been on Sertraline, Ativan and Xanax all with poor results -Interested in new medication, will trial Lexapro 10mg daily and Hydroxyzine 25mg TID PRN -Encouraged to continue seeing counselor at [place] 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 Polycystic ovarian syndrome 08/11/2024 [...] or CMV - given recent travel to [place] w nausea/diarrhea, r/o parasitic infection d/t [...] loss Assessment & Plan (08/04/2022 4:53 PM CARTOGRAPHIC AIDE): Not well controlled, continues to have significant [...] (11/26/2021): Added automatically from request for surgery [id number] 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 Assessment & Plan (07/14/2022 7:58 AM CARTOGRAPHIC AIDE): Clinical activity score remains 1-2 (spontaneous retro-orbital [...] habits 10/31/2021 Alternating constipation and diarrhea 10/31/2021 Diarrhea 10/31/2021 Assessment & Plan (09/28/2024 8:53 AM CDT): -Acute condition for past few weeks -Tested for flu, covid, rsv in clinic all negative -Likely secondary to viral infection -Supportive care recommended with hydration, Tylenol and Ibuprofen as needed for body aches, fever History of sleeve gastrectomy 10/31/2021 Lump of left breast 04/01/2021 Breast pain, left 04/01/2021 Assessment & Plan (08/04/2022 4:52 PM CARTOGRAPHIC AIDE): Not well controlled, continues to have severe episodes of breast pain, not related to menstrual cycles Follows with [facility] breast clinic; scheduled for MRI [...] (01/13/2019): Added automatically from request for surgery [id number] 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 Assessment & Plan (09/10/2021 1:05 PM CARTOGRAPHIC AIDE): Stable, well controlled; TSH at target Continue to check TSH related, no need for thyroid hormone at this time Assessment & Plan (06/25/2021 3:22 PM CARTOGRAPHIC AIDE): Stable, well controlled; continues to follow with Endocrinology; last TSH was normal, ultrasound reviewed No current medications AME (generalized anxiety disorder) 05/26/2018 Assessment & Plan (09/28/2024 9:13 AM CDT): -Chronic, poorly controlled -Has been on Ativan and Xanax, but with poor results -Will trial on Hydroxyzine TID PRN for anxiety -Encouraged to follow up with Dr. Harris at next appointment next month Assessment & Plan (06/14/2024 3:04 PM CARTOGRAPHIC AIDE): Not well controlled, acutely worsened due to [...] BID Assessment & Plan (08/04/2022 4:52 PM CARTOGRAPHIC AIDE): Not well controlled; worsening; patient reports multiple [...] daily Assessment & Plan (09/10/2021 1:04 PM CARTOGRAPHIC AIDE): Not well controlled, continues to have elevated anxiety and panic attacks, severe anxiety associated with small health concerns Patient reports no relief previously with Lexapro sertraline Patient is unclear if she needs daily medications Continue bupropion 150 mg daily, Valium 5 mg nightly Assessment & Plan (06/25/2021 3:21 PM CARTOGRAPHIC AIDE): Stable, improving; patient reports decreased panic attacks on sertraline Continue Zoloft 50 mg daily, hydroxyzine 25 mg t.i.d. p.r.n. for panic attacks Iron deficiency anemia ever agudelo to inadequate dietary iron intake 02/04/2018 Assessment & Plan (09/15/2022 5:09 PM CDT): Stable, patient has iron infusion scheduled Assessment & Plan (09/10/2021 1:04 PM CARTOGRAPHIC AIDE): Stable, improving; no evidence of anemia or iron deficiency at this time; continue to monitor with regular CBCs Assessment & Plan (06/25/2021 3:22 PM CARTOGRAPHIC AIDE): Follows with Hematology for iron infusions Low [...] w/r/t gut microbiome. Referred to ADA and [facility] websites for additional information on topics including glycemic index/carbohydrate choices, protein sources. 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 Assessment & Plan (06/25/2021 3:23 PM CARTOGRAPHIC AIDE): Postsurgical changes, secondary to gastric sleeve in [...] been working on weight loss; follows with basket hand braider, cutting back on coffee and trying to eat better Encourage 30 minutes moderate intensity exercise 5 days per week Assessment & Plan (09/10/2021 1:05 PM CARTOGRAPHIC AIDE): Not well controlled, patient has history of gastric sleeve, continues to have bowel issues associated gastric sleeve No significant change in weight, patient has been working on weight loss reports no significant changes Assessment & Plan (06/25/2021 3:24 PM CARTOGRAPHIC AIDE): Not well controlled; patient is status post [...] Encounters Date Type Department Care Team Description 11/01/2024 Orders Only [facility] at [address] [place] [phone] Linnea Leahy MD Moderate episode of recurrent major depressive disorder (HCC) (Primary Dx) 09/28/2024 8:30 AM CDT Office Visit [facility] [place] [address] [facility] [address] [place] [phone] Linnea Leahy MD Diarrhea, unspecified type (Primary Dx); AME (generalized anxiety disorder); Moderate episode of recurrent major depressive disorder (HCC); Body mass index (BMI) 40.0-44.9, adult (HCC); Type 2 diabetes mellitus with hyperglycemia, with long-term current use of insulin (HCC) 09/26/2024 Results Follow-Up [facility] at [address] [place] [phone] Chaparro Harris MD 09/05/2024 Telephone [facility] [address] [address] Eneida Sandoval RN 08/30/2024 Orders Only [facility] Department of Otolaryngology Head-Neck Division [address] [facility] Floor [address] [place] [address] Darline Messina PA 08/16/2024 Telephone [facility] [place] [facility] [address] [facility] [address] [place] [address] Olga Maharaj MD 08/11/2024 Telephone [facility] [address] [place] [address] Blanca Christopher, ALEXANDER Forms Request from Last 3 Months Immunizations Immunization Administration Dates Next Due Influenza, Trivalent, Preser vative Free, Intramuscular 05/16/2024 Influenza, Unspecified 06/02/2023,2021,08/21/2021(Defer red: Patient Refused),04/17/2021,04/16/2021(Deferre d: Patient Refused),07/06/2020(Deferred: Patient Refused) Tdap 05/26/2018,07/06/2017 Surgical History Surgery Date Site/Laterality Comments LA DELIVERY ONLY X 5 SLEEVE GASTROPLASTY 07/06/2015 [...] more points, staff should administer the PHQ-9) 6 09/28/2024 PHQ-9 Answer Date Recorded PHQ-9 Total Score 15 09/28/2024 Personal Safety Answer Date Recorded Have you ever been in or are you currently in a harmful physical or emotional relationship or is someone making you feel afraid or unsafe? Denies 02/29/2024 Comments No Sex and Gender Information Value Date Recorded Sex Assigned at Not on file Legal Sex Female 8:26 PM CARTOGRAPHIC AIDE Gender Identity Not on file Sexual Orientation Not on file Obstetrics History Para Term AB IAB SAB Ectopic Multiple Livin g Live Births 6 6 4 2 4 4 Date Outcome GA Total Labor Labor//3rd Weight Sex Type Anes PTL Sepideh A1 A5 Name Clin 1998 Term F CS-Cl assic al Livin g 2000 Demis e 2005 Term CS-LT ranjulian Livin g 2007 Term M CS-Cl arpan krishna Livevita g 2009 33w 5d 2.496 kg (5 lb 8 oz) M CS-Cl arpan Costa g 8 8 MAO ,BABY BOY MICHELLE Tomás Trejo MD Delivery Location:[facility] 2011 Term C-Sec tion Last Filed Vital Signs Vital Sign Reading Time Taken Comments Blood Pressure 130/88 09/28/2024 8:31 AM CDT Pulse 88 09/28/2024 8:31 AM CDT Temperature 36.2 C (97.1 F) 08/10/2024 2:54 PM CARTOGRAPHIC AIDE Respiratory Rate 16 09/28/2024 8:31 AM CDT Oxygen Saturation 98% 09/28/2024 8:31 AM CDT Inhaled Oxygen Concentration - - Weight 116.6 kg (257 lb 1.6 oz) 09/28/2024 8:31 AM CDT Height 162.6 cm (5' 4.02 ) 09/28/2024 8:31 AM CD T Body Mass Index 44.11 09/28/2024 8:31 AM CDT Plan of Treatment Health Maintenance Due Date Last Done Comments Albumin Creatinine Ratio, Urine 1983 Cervical Cancer Screening 1983 Dilated Eye Exam 1983 Foot Exam 1983 Varicella Vaccines (1 of 2 - 13+ 2-dose series) 1996 Regular Well Visit/Exam 18-64 2001 Pneumococcal vaccine <65 (1 of 2 - PCV) 2002 Hemoglobin A1C 01/11/2025 07/14/2024, 05/07, 02/01/2018 Lipid Panel 07/14/2025 07/14/2024, 04/0 01/2022, 04/23/2021, Additional history exists eGFR 07/14/2025 07/14/2024, 06/0 12/2023, 04/12/2022, Additional history exists Breast Cancer Screening-Mammogram 09/23/2025 09/23/2024, 06/08/2024, 06/01/2023, Additional history exists Depression Screening 09/28/2025 09/28/2024, 12/17/2023, 06/02/2023, Additional history exists DTaP/Tdap/Td Vaccine (3 - Td or Tdap) 05/26/2028 05/26/2018, 07/06/2017 Hepatitis C Screening Completed 10/12/2023 Hepatitis B Screening Completed 12/16/2023 Influenza Vaccine Completed 05/16/2024, , 04/14/2022, Additional history exists HPV Vaccines Aged Out No longer eligi ble based on patient's age to complete this topic Procedures Procedure Name Priority Date/Time Associated Diagnosis Comments POC INFLUENZA A/B, COVID-19 ANTIGEN Routine 09/28/2024 8:30 AM CDT Diarrhea, unspecified type DIAGNOSTIC MAMMOGRAM BILATERAL W BRIAN Schedule Routine, Read Routine (OP Routine) 09/23/2024 7:40 AM CDT EGFR Routine 07/14/2024 11:10 AM CARTOGRAPHIC AIDE HEMOGLOBIN A1C Routine 07/14/2024 11:10 AM CARTOGRAPHIC AIDE LIPID PANEL Routine 07/14/2024 11:10 AM CARTOGRAPHIC AIDE HEPATITIS C ANTIBODY Routine 10/12/2023 9:08 AM CDT Screening for STDs (sexually transmitted diseases) from Last 3 Months or Most Recently Relevant to Health Maintenance Results * POC Influenza A/B, COVID-19 antigen (09/28/2024 8:30 AM CDT) Influenza A Ag, POC Negative Negative [facility] Influenza B Ag, POC Negative Negative [facility] COVID-19 Ag POC Presumptive Negative Presumptive Negative, Invalid [facility] Nasal 09/28/2024 8:30 AM CDT us Linnea Leahy MD POINT OF CARE TEST ORDERABLES Final Result [facility] [address] [address] * Diagnostic Mammogram Bilateral W Brian (09/23/2024 7:40 AM CDT) Anatomical Region Laterality Modality Breast Bilateral Mammography Historical Provider MD BALL MAMMO PROCEDURES Odalys l Result * eGFR (07/14/2024 11:10 AM CARTOGRAPHIC AIDE) eGFR >90 >=60 mL/min/1. 73 m2 Comment: [...] was last reviewed 2021. Testing performed by: [facility], [address] [place] [address]., [id number] Blood 07/14/2024 11:1 0 AM CARTOGRAPHIC AIDE 07/14/2024 10:41 PM CARTOGRAPHIC AIDE Ju Maldonado MD LAB BLOOD ORDERABLES Odalys l Result [facility] [place]) [address] [facility] Department [place] [address] * (ABNORMAL) Hemoglobin A1c (07/14/2024 11:10 AM CARTOGRAPHIC AIDE) Hgb A1C 7.0(H) 4.0 - 5.6 % Comment:Testing performed by : [address] [address] Estimated Average Glucose 154 mg/dL [facility] ([place]) Comment: The ADA recommends reporting an estimated Average Glucose (eAG) with all Hemoglobin A1c results using the equation derived from a study of 507 normal and diabetic adults. Minority populations were underrepresented and children were not included. (Diabetes Care 31:1384-5874, 2008). The eAG is not equivalent to a fasting glucose. Testing performed by: [facility], [address] [place] [address]., [address] Blood 07/14/2024 11:1 0 AM CARTOGRAPHIC AIDE 07/14/2024 11:11 AM CARTOGRAPHIC AIDE us Ju Maldonado MD LAB BLOOD ORDERABLES Odalys jennings Result [facility] ([place]) [address] [facility] Department [place] [address] * (ABNORMAL) Lipid panel (07/14/2024 11:10 AM CARTOGRAPHIC AIDE) [facility] Signature Cholesterol 224(H) 30 - 199 mg/dL Comment: [...] last revised on 2018. Testing performed by: [facility], [address] [place] [address], [place]., [address] Triglycerides 91 <=149 mg/dL [facility] ([place]) [...] last revised on 2018. Testing performed by: [facility], [address] [place] [address]., [address] HDL 66 >=40 mg/dL [facility] ([facility]) Comment: Interpretive Data Ages < [...] last revised on 2018. Testing performed by: [address] [address] LDL, calculated 142(H) <=129 mg/dL [facility] [...] NCEP Expert Panel. Circulation 2004;110:227 3. Shukri King al. RUBIN Cardiol. 2020 November 03;5(5):540-548. doi: 10.1001/jamacardio.2020.0013 Current Interpretive Data was last revised on 2024. Testing performed by: [address] [address] Non-HDL Cholesterol 158 mg/dL [facility] ([facility]) Comment: Interpretive Data Ages < [...] last revised on 2018. Testing performed by: [facility], [address] [place] [address]., [address] Chol/HDL ratio 3 [facility] ([place]) Comment:Testing performed by : [facility], [address] [place] [address]., [address] Blood 07/14/2024 11:1 0 AM CARTOGRAPHIC AIDE 07/14/2024 11:10 AM CARTOGRAPHIC AIDE us Ju Maldonado MD LAB BLOOD ORDERABLES Oadlys jennings Result [facility] ([place]) [address] [facility] Department [place] [address] * Hepatitis C antibody Blood (10/12/2023 9:08 AM CDT) Pathologist [facility] Hep C Ab Nonreactive Nonreactive Comment: Interpretive [...] [place]AL [place] [address] [facility] Department [place] [address] from Last 3 Months or Most Recently Relevant to Health Maintenance Insurance [facility] Member Subscriber Plan / Payer (Ef fective 2021-Present) Name:Jaswinder Michelle Recio Relation to Subscriber:Self Name:Michelle San Payer ID:[id number] (NAIC) Group ID:Not on file Type:MEDICAID RISK OTHER Address: ATTN: CLAIMS DEPT [address] [facility] [place] [address] [facility] Advance Directives For more information, please contact: [phone] * Full Code (Latest Code Status on File) Date Activated Date Inactivated Comments 11/27/2021 8:51 AM 11/27/2021 4:54 PM * Full Code Date Activated Date Inactivated Comments 11/27/2021 8:51 AM 11/27/2021 8:51 AM * Full Code Date Activated Date Inactivated Comments 02/09/2019 1:46 PM 02/09/2019 7:27 PM Care Teams Hat Trimmer Relationship Specialty Start Date End Date Chaparro Harris MD [address] [place] [address] PCP - General Family Medicine 10/01/21 Jeff Umanzor MD [address] [place] [address] Referring Physician Obstetrics and Gynecology 08/10/23
--- OUTSIDE RECORDS SUMMARY | 2024-11-08 08:40 | XMS_ITS | Patient Health Record ---
Author Organization [employer] [facility] Address [address] [address] Care Team Providers Care Electronic Equipment Repairmen Name Role Phone Ju Maldonado Primary Care [...] Status Risk Notes Problem Vitamin D deficiency (62135877) Vitamin D deficiency, unspecified (E55.9) Active confirmed Problem Hyperglycemia due to type 2 diabetes mellitus (518330230272661) Type 2 diabetes mellitus with hyperglycemia (E11.65) Active confirmed Problem Hyperlipidemia (64607934) Hyperlipidemia, unspecified (E78.5) Active confirmed Problem Hypothyroidism (99022269) Hypothyroidism, unspecified (E03.9) Active confirmed Problem Obesity (809329824) Obesity, unspecified (E66.9) Active confirmed Problem Non-toxic goiter (526442470) Nontoxic goiter, unspecified (E04.9) Active confirmed Problem Autoimmune thyroiditis (21975264) 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) Active confirmed Problem Polycystic ovary syndrome (disorder) (724414939) Polycystic ovarian syndrome (E28.2) Active confirmed Vital Signs Heart Rate 78 /min 07/25/2024 Respiratory Rate 12 /min 07/25/2024 Blood pressure diastolic 80 mm Hg 07/25/2024 Height 65 in 07/25/2024 Blood pressure systolic 130 mm Hg 07/25/2024 Weight 260 lbs 07/25/2024 BMI 43.26 kg/m2 07/25/2024 Encounters Encounter Location Date Provider Diagnosis [facility], [facility] - [address] [address] [place] [address] 08/25/2024 Ju Maldonado [facility] [address] [place] [address] 07/12/2024 Ju Maldonado [facility] [address] [place] [address] 07/14/2024 Ju Maldonado Obesity, unspecified E66.9 [facility], [facility] - Ju Maldonado [address] [place] [address] 07/25/2024 Ju Maldonado [facility] [address] [place] [address] 07/26/2024 Ju Maldonado [facility], [facility] - [address] [address] [place] [address] 07/26/2024 Ju Maldonado Type 2 diabetes mellitus with hyperglycemia E11.65 [facility], [facility] - [address] [address] [place] [address] 08/01/2024 Ju Maldonado [facility] [address] [place] [address] 08/02/2024 Ju [facility], [facility] - [address] [address] [place] [address] 07/12/2024 Ju Maldonado Autoimmune thyroidit is E06.3 ; Other fatigue R53.83 ; Obesity, unspecified E66.9 ; Abnormal weight gain R63.5 ; Vitamin D deficiency, unspecified E55.9 ; Hirsutism L68.0 ; Family history of diabetes mellitus Z83.3 and Nontoxic goiter, unspecified E04.9 [facility], [facility] Ju Maldonado [address] [place] [address] 07/25/2024 Ju Maldonado Type 2 diabetes mellitus with hyperglycemia E11.65 ; Hypothyroidism, unspecified E03.9 ; Obesity, unspecified E66.9 ; Polycystic ovarian syndrome E28.2 and Hyperlipidemia, unspecified E78.5 [facility]- Dr. Frias [address] [place] [address] 07/15/2024 Ju Maldonado Assessments Encounter Date Diagnosis [...] procedures, referring and communicating with other health medicare insurance specialist, documenting clinical information in the electronic [...] increase to 5 mg weeklyEducate patient on [place] [employer] diet recommendationsLifestyle modifications to include [...] procedures, referring and communicating with other health medicare insurance specialist, documenting clinical information in the electronic [...] Insured Coverage Start Date Coverage End Date [address] [phone] [id number] Jazmyn San Self - patient is the insured Medical (General) History Medical History History ICD Code anxiety hashimotos thyroiditis obesity type 2 DM
--- OUTSIDE RECORDS SUMMARY | 2024-11-08 08:40 | XMS_ITS | Referral Summary ---
Author Organization [facility] Address [address] [place] [address] Care Team Providers Care Hired Worker Name Role Phone Chaparro Harris MD Primary Care Provider [phone] Jeff Umanzor MD Unavailable [phone] Encounters Date Type Department Care Team Description 11/01/2024 Orders Only [facility] at [address] [address] Linnea Leahy MD Moderate episode of recurrent major depressive disorder (HCC) (Primary Dx) 09/28/2024 8:30 AM CDT Office Visit [facility] at [address] [address] Linnea Leahy MD Diarrhea, unspecified type (Primary Dx); AME (generalized anxiety disorder); Moderate episode of recurrent major depressive disorder (HCC); Body mass index (BMI) 40.0-44.9, adult (HCC); Type 2 diabetes mellitus with hyperglycemia, with long-term current use of insulin (HCC) 09/26/2024 Results Follow-Up [facility] Primary Care at [address] [place] [address] Chaparro Harris MD 09/05/2024 Telephone [facility] [address] [place] [address] [address] [place] [address] Eneida Sandoval RN 08/30/2024 Orders Only [facility] Department of Otolaryngology Head-Neck Division [address] [facility] Floor [address] [place] [address] Darline Messina PA 08/16/2024 Telephone [facility] [address] [place] [address] Olga Maharaj MD 08/11/2024 Telephone [facility] [address] [place] [address] Blanca Christopher RN Forms Request from Last 3 Months Allergies Active Allergy [...] PRN -Encouraged to continue seeing counselor at [place] 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 Polycystic ovarian syndrome 08/11/2024 [...] or CMV - given recent travel to [place] w nausea/diarrhea, 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 [...] loss Assessment & Plan (08/04/2022 4:53 PM MENTAL HEALTH PROGRAM DIRECTOR): Not well controlled, continues to have [...] (11/26/2021): Added automatically from request for surgery [id number] 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 Assessment & Plan (09/10/2021 1:05 PM MENTAL HEALTH PROGRAM DIRECTOR): Stable, well controlled; TSH at target Continue to check TSH related, no need for thyroid hormone at this time Assessment & Plan (06/25/2021 3:22 PM MENTAL HEALTH PROGRAM DIRECTOR): Stable, well controlled; continues to follow [...] month Assessment & Plan (06/14/2024 3:04 PM MENTAL HEALTH PROGRAM DIRECTOR): Not well controlled, acutely worsened due [...] BID Assessment & Plan (08/04/2022 4:52 PM MENTAL HEALTH PROGRAM DIRECTOR): Not well controlled; worsening; patient reports [...] daily Assessment & Plan (09/10/2021 1:04 PM MENTAL HEALTH PROGRAM DIRECTOR): Not well controlled, continues to have elevated anxiety and panic attacks, severe anxiety associated with small health concerns Patient reports no relief previously with Lexapro sertraline Patient is unclear if she needs daily medications Continue bupropion 150 mg daily, Valium 5 mg nightly Assessment & Plan (06/25/2021 3:21 PM MENTAL HEALTH PROGRAM DIRECTOR): Stable, improving; patient reports decreased panic attacks on sertraline Continue Zoloft 50 mg daily, hydroxyzine 25 mg t.i.d. p.r.n. for panic attacks Iron deficiency anemia ever agudelo to inadequate dietary iron intake 02/04/2018 Assessment & Plan (09/15/2022 5:09 PM CDT): Stable, patient has iron infusion scheduled Assessment & Plan (09/10/2021 1:04 PM MENTAL HEALTH PROGRAM DIRECTOR): Stable, improving; no evidence of anemia or iron deficiency at this time; continue to monitor with regular CBCs Assessment & Plan (06/25/2021 3:22 PM MENTAL HEALTH PROGRAM DIRECTOR): Follows with Hematology for iron infusions [...] w/r/t gut microbiome. Referred to ADA and [employer] websites for additional information on topics including glycemic index/carbohydrate choices, protein sources. 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 Assessment & Plan (06/25/2021 3:23 PM MENTAL HEALTH PROGRAM DIRECTOR): Postsurgical changes, secondary to gastric sleeve [...] been working on weight loss; follows with shipping processor, cutting back on coffee and trying to eat better Encourage 30 minutes moderate intensity exercise 5 days per week Assessment & Plan (09/10/2021 1:05 PM MENTAL HEALTH PROGRAM DIRECTOR): Not well controlled, patient has history of gastric sleeve, continues to have bowel issues associated gastric sleeve No significant change in weight, patient has been working on weight loss reports no significant changes Assessment & Plan (06/25/2021 3:24 PM MENTAL HEALTH PROGRAM DIRECTOR): Not well controlled; patient is status [...] d: Patient Refused),07/06/2020(Deferred: Patient Refused) Tdap 05/26/2018,07/06/2017 Social [...] on file Legal Sex Female 8:26 PM MENTAL HEALTH PROGRAM DIRECTOR Gender Identity Not on file Sexual Orientation Not on file Last Filed Vital Signs Vital Sign Reading Time Taken Comments Blood Pressure 130/88 09/28/2024 8:31 AM CDT Pulse 88 09/28/2024 8:31 AM CDT Temperature 36.2 C (97.1 F) 08/10/2024 2:54 PM MENTAL HEALTH PROGRAM DIRECTOR Respiratory Rate 16 09/28/2024 8:31 AM CDT Oxygen Saturation 98% 09/28/2024 8:31 AM CDT Inhaled Oxygen Concentration - - Weight 116.6 kg (257 lb 1.6 oz) 09/28/2024 8:31 AM CDT Height 162.6 cm (5' 4.02 ) 09/28/2024 8:31 AM CD T Body Mass Index 44.11 09/28/2024 8:31 AM CDT Plan of Treatment Not on file Procedures Procedure Name Priority Date/Time Associated Diagnosis Comments POC INFLUENZA A/B, COVID-19 ANTIGEN Routine 09/28/2024 8:30 AM CDT Diarrhea, unspecified type DIAGNOSTIC MAMMOGRAM BILATERAL W BRIAN Schedule Routine, Read Routine (OP Routine) 09/23/2024 7:40 AM CDT EGFR Routine 07/14/2024 11:10 AM MENTAL HEALTH PROGRAM DIRECTOR HEMOGLOBIN A1C Routine 07/14/2024 11:10 AM MENTAL HEALTH PROGRAM DIRECTOR LIPID PANEL Routine 07/14/2024 11:10 AM MENTAL HEALTH PROGRAM DIRECTOR HEPATITIS C ANTIBODY Routine 10/12/2023 9:08 AM CDT Screening for STDs (sexually transmitted diseases) from Last 3 Months or Most Recently Relevant to Health Maintenance Results * POC Influenza A/B, COVID-19 antigen (09/28/2024 8:30 AM CDT) Influenza A Ag, POC Negative Negative [facility] Influenza B Ag, POC Negative Negative [facility] COVID-19 Ag POC Presumptive Negative Presumptive Negative, Invalid [facility] Nasal 09/28/2024 8:30 AM CDT Linnea Leahy MD POINT OF CARE TEST ORDERABLES Final Result [facility] [address] [address] * Diagnostic Mammogram Bilateral W Brian (09/23/2024 7:40 AM CDT) Anatomical Region Laterality Modality Breast Bilateral Mammography Historical Provider IMG MAMMO PROCEDURES Odalys l Result * eGFR (07/14/2024 11:10 AM MENTAL HEALTH PROGRAM DIRECTOR) eGFR >90 >=60 mL/min/1. 73 m2 Comment: [...] was last reviewed 2021. Testing performed by: [facility], [address] [place] [address]., [address] Blood 07/14/2024 11:1 0 AM MENTAL HEALTH PROGRAM DIRECTOR 07/14/2024 10:41 PM MENTAL HEALTH PROGRAM DIRECTOR Ju Maldonado MD LAB BLOOD ORDERABLES Odalys l Result Performing Organization Address [facility] de Phone Number CATRINA [facility] ([place]) [address] [place] [address] Department [place] [address] * (ABNORMAL) Hemoglobin A1c (07/14/2024 11:10 AM MENTAL HEALTH PROGRAM DIRECTOR) [facility] Hgb A1C 7.0(H) 4.0 - 5.6 % Comment:Testing performed by : [address] [address] Estimated Average Glucose 154 mg/dL CATRINA MULLER ([place]) Comment: The ADA recommends reporting an estimated Average Glucose (eAG) with all Hemoglobin A1c results using the equation derived from a study of 507 normal and diabetic adults. Minority populations were underrepresented and children were not included. (Diabetes Care 31:1897-1790, 2008). The eAG is not equivalent to a fasting glucose. Testing performed by: [address] [place] [address] Blood 07/14/2024 11:1 0 AM MENTAL HEALTH PROGRAM DIRECTOR 07/14/2024 11:11 AM MENTAL HEALTH PROGRAM DIRECTOR us Ju Maldonado MD LAB BLOOD ORDERABLES Odalys l Result Performing Organization Address [facility] Co de Phone Number CATRINA MULLER ([place]) [address] [facility] Department [place] [address] * (ABNORMAL) Lipid panel (07/14/2024 11:10 AM MENTAL HEALTH PROGRAM DIRECTOR) Cholesterol 224(H) 30 - 199 mg/dL [...] last revised on 2018. Testing performed by: [facility], [address] [place] [address]., [address] Triglycerides 91 <=149 mg/dL CATRINA MULLER ([place]) [...] last revised on 2018. Testing performed by: [facility], [address] [place] [address]., [address] HDL 66 >=40 mg/dL CATRINA MULLER ([place]) [...] last revised on 2018. Testing performed by: [address] [address] LDL, calculated 142(H) <=129 mg/dL CATRINA MULLER [...] last revised on 2024. Testing performed by: [address] [address] Non-HDL Cholesterol 158 mg/dL CATRINA MULLER ([place]) [...] last revised on 2018. Testing performed by: [address] [address] Chol/HDL ratio 3 FORD MULLER ([place]) Comment:Testing performed by : [facility], [address] [place] [address]., [address] Blood 07/14/2024 11:1 0 AM MENTAL HEALTH PROGRAM DIRECTOR 07/14/2024 11:10 AM MENTAL HEALTH PROGRAM DIRECTOR Ju Maldonado MD LAB BLOOD ORDERABLES Odalys l Result Performing Organization Address City/[facility]/ZIP Co de Phone Number CATRINA [facility] ([place]) [address] [facility] Department [place] [address] * Hepatitis C antibody Blood (10/12/2023 9:08 [...] MICROBIOLOGY - GENERAL O RDERABLES Final Result Performing Organization Address [facility]/ZIP Co de Phone Number CATRINA [address] [facility] Department [place] [address] from Last 3 Months or Most Recently Relevant to Health Maintenance Insurance [facility] Advance Directives For more information, please contact: [phone] * Full Code (Latest Code Status on File) Date Activated Date Inactivated Comments 11/27/2021 8:51 AM 11/27/2021 4:54 PM * Full Code Date Activated Date Inactivated Comments 11/27/2021 8:51 AM 11/27/2021 8:51 AM * Full Code Date Activated Date Inactivated Comments 02/09/2019 1:46 PM 02/09/2019 7:27 PM Care Teams Hired Worker Relationship Specialty Start Date End Date Chaparro Harris MD [address] [place] [address] PCP - General Family Medicine 10/01/21 Jeff Umanzor MD [address] [place] [address] Referring Physician Obstetrics and Gynecology 08/10/23
--- OUTSIDE RECORDS SUMMARY | 2024-11-08 08:40 | XMS_ITS | Clinical Summary ---
Author Organization [facility] Address [address] [place] [address] Phone Care Team Providers Care Implementation Specialist Payroll Name Role Phone Chaparro Harris MD Primary Care Provider [phone] Allergies Active Allergy Reactions Criticality Noted Date [...] on file Legal Sex Female 5:58 AM COFFEE TASTER Gender Identity Not on file Sexual Orientation [...] cm (5' 4 ) 07/24/2022 12:56 PM COFFEE TASTER Body Mass Index 44.29 07/24/2022 12:56 PM COFFEE TASTER Plan of Treatment Health Maintenance Due Date Last Done Comments Pre-Diabetes and Diabetes Screening 1985 HEPATITIS B VACCINES (1 of 3 - 19+ 3-dose series) 2002 HPV/Cotest (21-29) 2004 HPV/Cotest (30-65) 2013 CERVICAL CANCER SCREENING 11/21/2023 PAP SMEAR 11/21/2023 11/20/2020 BREAST CANCER SCREENING 06/01/2024 06/01/20 23, 06/01/2023, 06/04/2022, Additional history exists DTAP/TDAP/TD VACCINES (3 - Td or Tdap) 05/26/2028 05/26/2018, 07/06/2017 INFLUENZA VACCINE Completed 05/06/2024, , 07/06/2022, Additional history exists HPV VACCINES Aged Out No longer eligi ble based on patient's age to complete this topic Procedures Procedure Name Priority Date/Time Associated Diagnosis Comments MAMMO 3D IZZY DIAGNOSTIC BILAT W OR WO CAD Routine 06/04/2022 2:53 PM COFFEE TASTER Mastodynia from Last 3 Months or Most Recently Relevant to Health Maintenance Results * MAMMO DIAG BILAT 3D IZZY W OR WO CAD (06/04/2022 2:53 PM COFFEE TASTER) Anatomical Region Laterality Modality Breast Bilateral Mammography 06/04/2022 2:53 PM COFFEE TASTER Impressions 06/04/2022 3:09 PM COFFEE TASTER IMPRESSION: No evidence of malignancy. RECOMMENDATIONS: Bilateral annual screening mammogram. OVERALL FINAL ASSESSMENT: BI-RADS CATEGORY 1: Negative DICTATION LOCATION: [facility] Narrative 06/04/2022 3:09 PM COFFEE TASTER MAMMOGRAPHY DIGITAL DIAGNOSTIC BILATERAL 3-D TOMOGRAPHY WITH [...] ASSESSMENT: BI-RADS CATEGORY 1: Negative DICTATION LOCATION: [facility] Arun Reina MD MAMMO ORDERABLES Final Result from Last 3 Months or Most Recently Relevant to Health Maintenance Insurance [facility] MEDICAID [facility] MEDICAID Care Teams Implementation Specialist Payroll Relationship Specialty Start Date End Date Chaparro Harris MD [address] [place] [address] PCP - General Family Practice 02/27/23
--- OUTSIDE RECORDS SUMMARY | 2024-11-08 08:41 | XMS_ITS | CONTINUITY OF CARE DOCUMENT ---
Author Name yaima erwin Address Unknown Organization [facility] Address [address] [place] [address] Phone [phone] Care Team Providers Care Tdp Displays Analyst Name Role Phone Peter PINK, Daisy Unavailable ANAYA PINK, RAJWINDER Unavailable INSURANCE PROVIDERS Payer name Policy type / Coverage type [place] red constitution party ID [facility] [id number] Other [id number] HEALTHCARE AND FAMILY SERVICES Medicaid 0 [id number]
--- OUTSIDE RECORDS SUMMARY | 2024-11-08 08:41 | XMS_ITS ---
Author Organization [facility] Address [address] [place] [address] Care Team Providers Care Airplane First Officer Name Role Phone Ju Maldonado Primary Care Provider REASON FOR VISIT 6 WEEK FOLLOW UP Encounters Encounter Location Date Provider Diagnosis [facility] - Ju Maldonado [address] [place] [address] 08/25/2024 Ju Maldonado Plan Of Treatment No Information Progress Notes * Jazmyn LEVIDOB:1985 (39 yo F)Acc No.[id number]:08/25/2024 Progress Notes Patient: Jazmyn ARIAS Provider: Almita Maldonado MD :1985 A ge:39 Y S ex:Female Date:08/25/2024 Address:[address] [facility] Subjective: * Chief Complaints: * 1 . 6 WEEK FOLLOW UP. * Medical History: Objective: * Vitals: Assessment: Plan: * Treatment: * Billing Information: * Visit Code: * Procedure Codes: * Electronic signature of Alban Maldonado MD on 11/08/2024 at 08:41 AM CDT Sign off status: Pending * Provider: Almita Maldonado MD Date: 08/25/2024 Generated for Jose Alberto sims/Herb/eTransmitting on: 11/08/2024 08:41 AM CDT
--- OUTSIDE RECORDS SUMMARY | 2024-11-08 08:41 | XMS_ITS | Encounter Summary ---
Author Organization [facility] Address [address] [place] [address] Care Team Providers Care Building Drafting Officer Name Role Phone Chaparro Harris MD Primary Care Provider [phone] Reason for Visit * Reason Onset Date Comments lab orders 08/25/2022 Encounter Details Date Type Department Care Team (Late st Contact Info) Description 08/25/2022 Telephone [facility] Oncology and Hematology - Neeraj [address] [facility] [address] [place] [address] [place] [address] [place] [address] [address] [place] [address] lab orders Social History Tobacco Use Types Packs/Day Years Used Date Smoking Tobacco: Never Smokeless Tobacco: Never Alcohol Use Standard Drinks/Week Comments No 0 (1 standard drink = 0.6 oz pur e alcohol) Comments No Sex and Gender Information Value Date Recorded Sex Assigned at Not on file Legal Sex Female 5:58 AM SPRAY GUNNER Gender Identity Not on file Sexual Orientation Not on file COVID-19 Exposure Response Date Recorded In the last 10 days, have yo u been in contact with someone who was confirmed or suspected to have Coronavirus/COVID-19? No / Unsure 08/26/2022 3:07 PM SPRAY GUNNER documented as of this encounter Plan of [...] (chronic) documented in this encounter Care Teams Building Drafting Officer Relationship Specialty Start Date End Date Chaparro Harris MD [address] [place] [address] PCP - General Family Practice 02/27/23 documented as of this encounter
--- OUTSIDE RECORDS SUMMARY | 2024-11-08 08:41 | XMS_ITS | Data Portability ---
Author Organization [facility] Address [address] [place] [address] Assessment Encounter Date Assessment Date Assessment LastModified [...] None recorded. Lab urinalysis, dipstick 2021 022 [facility], [address], [place], [address], 17:05:21 Referral None recorded. Procedures None recorded. Surgeries None recorded. Imaging US, breast, bilateral, w/ axilla 2021 022 [facility], [facility], [place], [address], 3 09:11:00 US, pelvis 2021 022 [facility] [address], [place], [address], 12:20:09 [facility], [facility]ina l [facility], [address], [place], [address], 12:28:53 MAMMO, diagnostic, digital, bilateral [address], [address], [place], [address], 16:08:45 US, breast, unilateral [address], [address], [place], [address], 16:08:45 Medication Orders None recorded. Patient TargetsNo targets recorded. Patient InstructionsNo instructions recorded. Reason for Referral None Reported. Results Created Date Observation Date Name Description Value Unit Range Abnormal Flag Note LastModifiedBy Organization Detail LastModifiedTime 08/23/19 22 08/23/2021 CT/GC AND TRICH OMONA S VAGIN JOSSELYN (RRNA ), SWAB chlamydia trachomatis, PCR Negati ve negati ve Not Available [facility] (Lab) [address], [place], [address], 09/02/2021 16:08:28 08/23/19 22 08/23/2021 CT/GC AND TRICH OMONA S VAGIN JOSSELYN (RRNA ), SWAB neisseria gonorrhoeae, PCR Negati ve negati ve Not Available [facility] (Lab) [address], [place], [address], 09/02/2021 16:08:28 08/23/19 22 08/23/2021 CT/GC AND TRICH OMONA S VAGIN JOSSELYN (RRNA ), SWAB trichomonas vaginalis ribosomal RNA (rrna) Negati ve negati ve Not Available [facility] (Lab) [address], [place], [address], 09/02/2021 16:08:28 08/23/19 22 08/23/2021 MOBIL UNCUS MULIE RIS/C URTIS MICHELLE, RT-PC R, ONE SWAB nm bkr mobiluncus mulieris and mobiluncus curtisii by RT-PCR Negati ve Swab- 1 Vag Cerv Not Available [facility] (Lab) [address] [place], [address], 09/02/2021 16:08:28 08/23/19 22 08/23/2021 CAIN DA VAGIN ITIS PANEL RT-PC R, ONESW AB solomon albicans PCR Negati ve Swab- 1 Vag Cerv Not Available [facility] (Lab) [address] [facility], [place], [address], 09/02/2021 16:08:29 08/23/19 22 08/23/2021 CAIN DA VAGIN ITIS PANEL RT-PC R, ONESW AB solomon tropicalis PCR Negati ve Swab- 1 Vag Cerv Not Available [facility] (Lab) [address] [facility], [place], [address], 09/02/2021 16:08:29 08/23/19 22 08/23/2021 CAIN DA VAGIN ITIS PANEL RT-PC R, ONESW AB solomon parapsilosis PCR Negati ve Swab- 1 Vag Cerv Not Available [facility] (Lab) [address] [place], [address], 09/02/2021 16:08:29 08/23/19 22 08/23/2021 CAIN DA VAGIN ITIS PANEL RT-PC R, ONESW AB solomon glabrata PCR Negati ve Swab- 1 Vag Cerv Not Available [facility] (Lab) [address] [place], [address], 09/02/2021 16:08:29 08/23/19 22 08/23/2021 CAIN DA SYLVIE I BY RT-PC R solomon krusei by RT-PCR Negati ve Swab- 1 Vag Cerv Not Available [facility] (Lab) [address] [place], [address], 09/02/2021 16:08:29 08/23/19 22 08/23/2021 UROGE NITAL MYCOP LASMA /UREA PLASM A PANEL RT-PC R, ONESW AB nm bkr mycoplasma genitalium by RT-PCR Negati ve Swab- 1 Vag Cerv Not Available [facility] (Lab) [address] [facility], [place], [address], 09/02/2021 16:08:30 08/23/19 22 08/23/2021 UROGE NITAL MYCOP LASMA /UREA PLASM A PANEL RT-PC R, ONESW AB nm bkr mycoplasma hominis by RT-PCR Negati ve Swab- 1 Vag Cerv Not Available [facility] (Lab) [address] [place], [address], 09/02/2021 16:08:30 08/23/19 22 08/23/2021 UROGE NITAL MYCOP LASMA /UREA PLASM A PANEL RT-PC R, ONESW AB nm bkr ureaplasma urealyticum by RT-PCR Negati ve Swab- 1 Vag Cerv Not Available [facility] (Lab) [address] [facility], [place], [address], 09/02/2021 16:08:30 08/23/19 22 08/23/2021 BACTE RIAL VAGIN OSIS PANEL RT-PC R, ONESW AB gardnerella vaginalis PCR Negati ve Swab- 1 Vag Cerv Not Available [facility] (Lab) [address] [place], [address], 09/02/2021 16:08:30 08/23/19 22 08/23/2021 BACTE RIAL VAGIN OSIS PANEL RT-PC R, ONESW AB atopobium vaginae PCR Negati ve Swab- 1 Vag Cerv Not Available [facility] (Lab) [address] [place], [address], 09/02/2021 16:08:30 08/23/19 22 08/23/2021 BACTE RIAL VAGIN OSIS PANEL RT-PC R, ONESW AB bacterial vaginosis associated bacteria 2 (bvab2) Negati ve Swab- 1 Vag Cerv Not Available [facility] (Lab) [address] [place], [address], 09/02/2021 16:08:30 08/23/19 22 08/23/2021 BACTE RIAL VAGIN OSIS PANEL RT-PC R, ONESW AB megasphaera species (type 1 and type 2) PCR Negati ve (Type1 ,Type2 ) Swab- 1 Vag Cerv Type1 :Nega tive Type2 :Nega tive. Not Available [facility] (Lab) [address] [place], [address], 09/02/2021 16:08:30 08/23/19 22 08/23/2021 BACTE RIAL VAGIN OSIS PANEL RT-PC R, ONESW AB lactobacillu s (bvpanel) PCR See Commen t Swab- 1 Vag Cerv L.cri spatu s: Negat ellen L.carolyn senii : Negat ellen L.gas seri : Negat ellen L.ine rs : Posit ellen. Not Available [facility] (Lab) [address] [place], [address], 09/02/2021 16:08:30 09/05/19 22 09/04/2021 URINA LYSIS , WITH MICRO SCOPI C, REFLE X CULTU RE color, urine Yellow colorl ess, light yellow , yellow , dark yellow , straw Not Available [facility] (Lab) [address] [place], [address], 09/05/2021 01:44:58 09/05/19 22 09/04/2021 URINA LYSIS , WITH MICRO SCOPI C, REFLE X CULTU RE clarity, urine Cloudy Not Available [facility] (Lab) [address] [place], [address], 09/05/2021 01:44:58 09/05/19 22 09/04/2021 URINA LYSIS , WITH MICRO SCOPI C, REFLE X CULTU RE glucose, urine Negati ve mg/dL negati ve Not Available [facility] (Lab) [address] [place], [address], 09/05/2021 01:44:58 09/05/19 22 09/04/2021 URINA LYSIS , WITH MICRO SCOPI C, REFLE X CULTU RE bilirubin, urine Negati ve mg/dL negati ve Not Available [facility] (Lab) [address] [facility], [place], [address], 09/05/2021 01:44:58 09/05/19 22 09/04/2021 URINA LYSIS , WITH MICRO SCOPI C, REFLE X CULTU RE ketones, urine Negati ve mg/dL negati ve Not Available [facility] (Lab) [address] [facility], [place], [address], 09/05/2021 01:44:58 09/05/19 22 09/04/2021 URINA LYSIS , WITH MICRO SCOPI C, REFLE X CULTU RE pH, urine 6.0 . 5.0-9. 0 Not Available [facility] (Lab) [address] [facility], [place], [address], 09/05/2021 01:44:58 09/05/19 22 09/04/2021 URINA LYSIS , WITH MICRO SCOPI C, REFLE X CULTU RE specific gravity, urine 1.023 . 1.001- 1.035 Not Available [facility] (Lab) [address] [place], [address], 09/05/2021 01:44:58 09/05/19 22 09/04/2021 URINA LYSIS , WITH MICRO SCOPI C, REFLE X CULTU RE blood, urine Negati ve negati ve Not Available [facility] (Lab) [address] [place], [address], 09/05/2021 01:44:58 09/05/19 22 09/04/2021 URINA LYSIS , WITH MICRO SCOPI C, REFLE X CULTU RE protein, UA Negati ve mg/dL negati ve Not Available [facility] (Lab) [address] [place], [address], 09/05/2021 01:44:58 09/05/19 22 09/04/2021 URINA LYSIS , WITH MICRO SCOPI C, REFLE X CULTU RE urobilinogen , urine <2.0 mg/dL <2.0 Not Available [facility] (Lab) [address] [facility], [place], [address], 09/05/2021 01:44:58 09/05/19 22 09/04/2021 URINA LYSIS , WITH MICRO SCOPI C, REFLE X CULTU RE nitrite, urine Negati ve negati ve Not Available [facility] (Lab) [address] [facility], [place], [address], 09/05/2021 01:44:58 09/05/19 22 09/04/2021 URINA LYSIS , WITH MICRO SCOPI C, REFLE X CULTU RE leukocyte esterase, urine Negati ve florencia/u L negati ve Not Available [facility] (Lab) [address] [facility], [place], [address], 09/05/2021 01:44:58 09/05/19 22 09/04/2021 URINA LYSIS , WITH MICRO SCOPI C, REFLE X CULTU RE WBC, urine 0-5 /hpf none, 0-5 Not Available [facility] (Lab) [address] [place], [address], 09/05/2021 01:44:58 09/05/19 22 09/04/2021 URINA LYSIS , WITH MICRO SCOPI C, REFLE X CULTU RE RBC, urine 0-2 /hpf none, 0-2 Not Available [facility] (Lab) [address] [place], [address], 09/05/2021 01:44:58 09/05/19 22 09/04/2021 URINA LYSIS , WITH MICRO SCOPI C, REFLE X CULTU RE bacteria, urine Trace /hpf none abnormal Not Available [facility] (Lab) [address] [place], [address], 09/05/2021 01:44:58 09/05/19 22 09/04/2021 URINA LYSIS , WITH MICRO SCOPI C, REFLE X CULTU RE squamous epithelial cells, urine Many /hpf none abnormal Not Available [facility] (Lab) [address] [facility] [address], [place], [address], 09/05/2021 01:44:58 09/05/19 22 09/04/2021 URINA LYSIS , WITH MICRO SCOPI C, REFLE X CULTU RE mucus, urine Modera te /hpf none, trace, few abnormal Not Available [facility] (Lab) [address] [facility], [place], [address], 09/05/2021 01:44:58 09/05/19 22 09/04/2021 URINA LYSIS , WITH MICRO SCOPI C, REFLE X CULTU RE amorphous crystal, urine Many /hpf none abnormal Not Available [facility] (Lab) [address] [facility], [place], [address], 09/05/2021 01:44:58 09/05/19 22 09/04/2021 URINA LYSIS , WITH MICRO SCOPI C, REFLE X CULTU RE calcium oxalate crystal, urine Many /hpf none abnormal Urine Cultu re not perfo rmed per refle x ancelmo col. Not Available [facility] (Lab) [address] [facility], [place], [address], 09/05/2021 01:44:58 09/11/19 22 09/10/2021 urina lysis , dipst ick Leukocytes neg Not Available Mukesh khan [address], [place], [address], 09/10/2021 17:05:08 09/11/19 22 09/10/2021 urina lysis , dipst ick Nitrite neg Not Available [address], [place], [address], 09/10/2021 17:05:08 09/11/19 22 09/10/2021 urina lysis , dipst ick Blood trace Not Available [facility] [address], [place], [address], 09/10/2021 17:05:08 09/05/19 22 09/04/2021 US, pelvi s No observ ation record ed. [email or web address] [facility] [address], [place], [address], 09/04/2021 12:28:43 09/05/19 22 09/04/2021 US, trans vagin al No observ ation record ed. [email or web address] [address], [place], [address], 09/04/2021 12:28:53 09/05/19 22 09/04/2021 US, pelvi s No observ ation record ed. FRANK Brise[address]da [address], [place], [address], 10/01/2021 23:40:33 09/10/19 22 09/08/2021 CT, abdom en + pelvi s, w/ contr ast No observ ation record ed. [email or web address] [facility] (Radiology) [address] [facility] , [place], [address], 09/09/2021 20:20:14 09/11/19 22 09/10/2021 US, kidne y No observ ation record ed. [facility] [address], [place], [address], 09/10/2021 16:38:58 07/11/19 23 07/11/2022 US, kay selby, w/ axill a No observ ation record ed. [facility] [address], [place], [address], 07/11/2022 15:18:08 Result Notes None recorded. Problems Name Problem SNOMED Code Status Onset Date Resolution Date Notes Provider Name and Address Organization Details Recorded Time Pregnanc y test negative 004328469 Completed 201411/08/2020 Encounte r for pregnanc y test, result negative ;Practic e ID: 0001 Rosa nichole [facility] 16:24:30 Human papillom avirus deoxyrib onucleic acid detected , high risk on cervical specimen 707291168 Completed 201511/08/2020 Cervical high risk HPV DNA test positive ;Practic e ID: 0001 Rosa [facility] 16:24:24 Low grade squamous intraepi thelial lesion on cervical Papanico laou smear [id number] 105 Completed 201503/27/2021 Low grade intrepit h lesion cyto smr crvx (LGSIL); Practice ID: 0001 Ro Chris [facility] 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 16:24:33 Clinical finding Completed 201811/08/2020 Other specifie d disorder s of breast;P ractice ID: 0001 Rosa nichole [facility] 16:24:13 Screenin g for malignan t neoplasm of cervix Completed 201411/15/2020 Encounte r for screenin g for malignan t neoplasm of cervix;R ecorded Elsewher e: No Locat ion: Sin aldana [facility] S ource: EHR Core Placer angel luis: N Practi ce ID: 0001 Tiago lable Time: 05:00:00 PM Ro nichole [facility] 16:55:10 Disorder of breast 57968410 Completed 201811/08/2020 Disorder of breast, unspecif ied;Maxwell rded Elsewher e: No [facility] E[facility] Core Placer angel luis: N Practi ce ID: 0001 Tiago lable Time: 09:45:00 AM Rosa [facility] 16:24:16 Finding of body mass index 402721961 Completed 201411/08/2020 Body mass index (BMI) 40.0-44. 9, adult;Re corded Elsewher e: No Locat ion: [facility] S ource: EHR Core Placer angel luis: N Practi ce ID: 0001 Tiago lable Time: 05:00:00 PM Rosa [facility] 16:24:18 Syphilis test finding 000705507 Completed 201411/08/2020 Encntr screen for infectio ns w sexl mode of transmis s;Record ed Elsewher e: No Locat ion: [facility] S ource: EHR Core Placer angel luis: N Practi ce ID: 0001 Tiago lable Time: 05:00:00 PM Rosa [facility] 16:24:36 Infectio n screenin g Completed 201411/08/2020 Encounte r for screenin g for oth infec/pa rastc diseases ;Recorde d Elsewher e: No Locat ion: [facility] S ource: EHR Core Placer angel luis: N Practi ce ID: 0001 Tiago lable Time: 05:00:00 PM Rosa [facility] 16:24:26 Genuine stress incontin ence 73298147 Completed 201411/08/2020 Stress incontin ence (female) (male);R ecorded Elsewher e: No Locat ion: [facility] S ource: EHR Core Placer angel luis: N Practi ce ID: 0001 Tiago lable Time: 05:00:00 PM Rosa [facility], [facility] 16:24:21 Problem Notes None recorded. Procedures Surgical History Date Name Laterality Status Provider Name and Address Organization Details Recorded Time 1 Date of Last Pap Smear completed [facility] 11/20/2020 10:22:52 6 Tubal Ligation completed [facility] 11/20/2020 12:05:25 6 section completed [facility] 11/20/2020 12:05:51 5 Colposcopy completed [facility] 11/15/2020 16:57:09 2 section completed [facility] 11/20/2020 12:05:46 0 section completed [facility] 11/20/2020 12:05:33 8 section completed [facility] 11/20/2020 12:05:10 9 section completed [facility] 11/20/2020 12:05:01 Tubal Ligation completed [facility] 03/27/2021 11:35:40 Imaging Results Imaging Date Name Status LastModified by Organization Details LastModified Time 09/04/2021 US, pelvis completed elisabeth Sauer [address], [place], [address], 09/04/2021 12:28:43 09/04/2021 US, transvaginal completed elisabeth aldana [address], [place], [address], 09/04/2021 12:28:53 09/04/2021 US, pelvis completed [facility] [address], [place], [address], 10/01/2021 23:40:33 09/08/2021 CT, abdomen + pelvis, w/ contrast completed [email or web address] [place] [address] (Radiology) [address] [facility] , [place], [address], 09/09/2021 20:20:14 09/10/2021 US, kidney completed [facility] [address], [place], [address], 09/10/2021 16:38:58 07/11/2022 US, breast, bilateral, w/ axilla completed [facility] [address] [facility] [address], [place], [address], 07/11/2022 15:18:08 Procedure Notes None recorded. Medical Equipment None Reported. Allergies Allergen ID Allergen Name Allergen Category Reaction Reaction Severity Criticality Documentation Date Start Date Code Code System Note Provider Name and Address Organization Details Recorded Time 56462 Non-stero idal anti-infl ammatory agent (product) medicatio n Not available Not available Not available 06/22/2020 46289 005 SNOMED Comme nt: [facility]at [facility]; Not Available [facility] 0 14:24:36 Medications Name Sig Start Date [...] Quigley e: No Locat ion: Sin aldana [facility] Almita moran By: sgrotefe ndt Enco [...] Prescrib ed Elsewher e: Yes Loca tion: [facility] M odify By: dmrose E ncounter DateTime [...] Updated DateTime 03/27/2021 158.75 cm 46.1 kg/m2 290368.65 g Ro Chris [place] - [facility] 03/27/2021 11:35:16 Date Recorded Systolic blood pressure Diastolic blood pressure Provider Name and Address Organization Details Last Updated DateTime 03/27/2021 126 mm[Hg] 82 mm[Hg] Cherelle Monge, [facility] [address], [place], [address], [facility] 03/27/2021 13:35:08 Date Recorded Body height Provider Name an d Address Organization Details Last Updated DateTime 08/23/2021 158.75 cm Ro Chris [facility] 08/23/2021 16:36:10 Date Recorded Body mass index (BMI) Body weight Systolic blood pressure Diastolic blood pressure Provider Name and Address Organization Details Last Updated DateTime 08/23/2021 47.7 kg/m2 688840.26 g 120 mm[Hg] 76 mm[Hg] Cherelle Monge, [facility] [address], [place], [address], [facility] 08/23/2021 17:17:24 Date Recorded Body height Body mass index (BMI) Body weight Systolic blood pressure Diastolic blood pressure Provider Name and Address Organization Details Last Updated DateTime 09/10/2021 158.75 cm 47 kg/m2 565846.6 1 g 140 mm[Hg] 81 mm[Hg] Lizz Moore [facility] 16:57:12 Date Recorded Body height Systolic blood pressure Diastolic blood pressure Provider Name and Address Organization Details Last Updated DateTime 07/03/2022 158.75 cm 130 mm[Hg] 80 mm[Hg] Gina Wood [facility] 07/03/2022 13:01:35 Social History Question Answer Notes LastModified by Organizat ion Details LastModified Time Tobacco Smoking Status Never Smoker Odilon nichole, [facility] 09/04/2021 11:16:24 Do You Have An [...] Anxious, Or Unable To Sleep At Night)? [id number] Information not available 11/15/2020 Do You Use Any Illicit Or Recreational Drugs? No Information not available 11/15/2020 Do You Use Sunscreen Routinely? Yes Information not available 11/15/2020 Have You Used IV Drugs? No Information not available 03/27/2021 Sex: Unknown Functional Status Question Answer Note LastModified by Pass[employer]at ion Details LastModified Time Are you able [...] SNOMED-CT Code Diagnosis ICD10 Code Diagnosis Note [id number] Tobin Joshi MD [facility] [address],[place] [address] 11/08/2020 15:50:11 11/08/2020 16:51:03 Pain in pelvis 58033545 R10.2 This patient is a 35-year-ol d [...] already had some that was ineffectiv e. [id number] Tobin Joshi MD [facility] [address],[place] [address] 11/12/2020 09:35:10 11/12/2020 10:32:41 Pain in pelvis 96451625 R10.2 This patient is a 35-year-ol d [...] already had some that was ineffectiv e. [id number] [facility] [address],[place] [address] 11/20/2020 10:11:32 11/20/2020 11:10:58 Gynecologic examination 63351943 Z01.419 Take Calcium with Vitamin D 1200mg [...] Advise updated PCP visit [place] BP. [id number] ABI Wills[facility] [address],[place] [address] 03/27/2021 11:22:25 03/27/2021 14:53:58 Mass of left breast 8383805834 8269842 N64.4 Discussed exam today & imaging.Sh jovan [...] this patient s visit, including available hand engine manager upon arrive, temperatur e check and being asked a series of screening questions. All staff wore face coverings during this encounter, as well as provided additional cleaning and sanitizing of all surfaces, including countertop s, pens, chairs, door handles, light switches, etc, prior to and following the patient s visit. [id number] [facility] [address],[place] [address] 08/23/2021 16:18:03 08/23/2021 17:25:27 Vaginal pain 46560586 R10.2 Today we agreed to update std/vag [...] this patient s visit, including available hand engine manager upon arrive, temperatur e check and being asked a series of screening questions. All staff wore face coverings during this encounter, as well as provided additional cleaning and sanitizing of all surfaces, including countertop s, pens, chairs, door handles, light switches, etc, prior to and following the patient s visit. [id number] Jody Hameed MD [facility] [address],[place] [address] 09/04/2021 11:16:09 09/04/2021 12:03:33 Pain in pelvis 25038762 R10.2 [id number] Jody Hameed MD [facility] [address],[place] [address] 09/10/2021 16:41:21 09/23/2021 15:15:51 Urinary symptoms 741813813 R39.9 Pain in pelvis 43120548 R10.2 [id number] Norma Diaz FAISAL [facility] [address],[place] [address] 07/03/2022 12:52:25 07/03/2022 15:02:31 Pain of breast 91699327 N64.4 Breast exam with no abnormal masses felt, tenderness in left breast from the 3 o'clock to 5 o'clock position.S he has had normal diagnostic mammogram last month - we do not have these records. Records requested. She has some minor irritation noted likely secondary to recently shaving. Avoid shaving until resolved.S he has an appointmen t scheduled with [facility] breast specialist next week - [...] Patel Member ID Guarantor Name 03/27/2021 1 [facility] ON OR AFTER 01/03/21 (MEDICAID REPLACEMENT - HMO) [facility] [id number] [facility] 08/23/2021 1 [facility] - DOS ON OR AFTER 21 (MEDICAID REPLACEMENT - HMO) [facility] [id number] [facility] 09/04/2021 1 [facility] - DOS ON OR AFTER 21 (MEDICAID REPLACEMENT - HMO) [facility] [id number] [facility] 09/10/2021 1 [facility] - DOS ON OR AFTER 21 (MEDICAID REPLACEMENT - HMO) [facility] [id number] [facility] 07/03/2022 1 [facility] - DOS ON OR AFTER 21 (MEDICAID REPLACEMENT - HMO) [facility] [id number] [facility] Notes Date Note Type Note Provider [...] WNL Cherelle Monge FAISAL- [address], [place], [address], [facility] 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 [facility]JENIFFER [address], [place], [address], [facility] 08/23/2021 17:24:06 09/10/2021 text/html Anity is here fo r follow up US for pelvic pain. US 09/04 showed normal uterus, normal right ovary, and left ovary with a 2.5cm simple cyst. She had a CT 09/08 in [place] for RLQ pain that was noral and a renal US 09/10 that was normal. UA with trace of blood. She also feels like she is incompletely emptying unless she pushes for a couple months. She had a cysto a couple years ago for hematuria with Kenneth at [facility]. Jody Hameed MD [address], [place], [address], [facility] 09/23/2021 09:28:27 07/03/2022 text/html 37yo Presents [...] present.She does not drink any caffeineSees a desktop publishing operator for SOB, has felt chest pain in the past but none currentlyShe has an appointment next week to see a breast specialist at [facility] for further management. ABI Cummins [address], [place], [address], [facility] 07/03/2022 14:18:17 OBGyn Episode Ob Episode Information Episode Created Date Number of Fetuses Patient Bloodtype Patient rh Status Prepregnancy Weight lbs Domestic Partner Domestic Partner Phone Father Name Cook Candy Status 11/09/19 21 1 CLOSED Fetus Data [...] Domestic Partner Domestic Partner Phone Father Name Cook Candy Status 11/09/19 21 1 CLOSED Fetus Data [...] Domestic Partner Domestic Partner Phone Father Name Cook Candy Status 11/09/19 21 1 CLOSED Fetus Data [...] Domestic Partner Domestic Partner Phone Father Name Cook Candy Status 11/09/19 21 1 CLOSED Fetus Data [...] Domestic Partner Domestic Partner Phone Father Name Cook Candy Status 11/09/19 21 1 CLOSED Fetus Data [...]
--- OUTSIDE RECORDS SUMMARY | 2024-11-08 08:41 | XMS_ITS | Clinical Summary ---
Author Organization [facility] Address [address], [facility] [address] [place] [address] Phone Care Team Providers Care Instructional Coach Name Role Phone Provider, None Primary Care Provider Unavailabl e Allergies No known active allergies Medications ondansetron (ZOFRAN-ODT) 4 MG TABLET DISPERSIBLEIndi cations:Nausea and Vomiting Take 1 Tablet by mouth every 8 hours as needed for Nausea - 1st line. Indications: Nausea and Vomiting 10 Tablet 08/04/2024 Active Active Problems No known active problems Social History Tobacco Use Types Packs/Day Years [...] Sex Assigned at Female 05/23/2024 7:05 PM HORTICULTURAL MANAGER Legal Sex Female 1:02 PM HORTICULTURAL MANAGER Gender Identity Female 05/23/2024 7:05 PM HORTICULTURAL MANAGER Sexual Orientation Not on file Last Filed Vital Signs Vital Sign Reading Time Taken Comments Blood Pressure 138/91 08/04/2024 9:24 PM HORTICULTURAL MANAGER Pulse 97 08/04/2024 9:24 PM HORTICULTURAL MANAGER Temperature 36.7 C (98.1 F) 08/04/2024 6:39 PM HORTICULTURAL MANAGER Respiratory Rate 14 08/04/2024 9:24 PM HORTICULTURAL MANAGER Oxygen Saturation 100% 08/04/2024 9:24 PM HORTICULTURAL MANAGER Inhaled Oxygen Concentration - - Weight 117.9 kg (260 lb) 08/04/2024 6:39 PM HORTICULTURAL MANAGER Height 165.1 cm (5' 5 ) 08/04/2024 6:39 PM HORTICULTURAL MANAGER Body Mass Index 43.27 08/04/2024 6:39 PM HORTICULTURAL MANAGER Plan of Treatment Health Maintenance Due [...] Completed 06/08/2024, 06/01/2023, 08/18/2022, Additional history exists Human Papillomavirus (HPV) Immunization Aged Out No longer eligible based on patient's age to complete this topic Meningococcal Immunization (ACWY) Aged Out No longer eligible based on patient's age to complete this topic Pneumococcal Immunization Combined Aged Out No longer eligible based on patient's age to complete this topic Rotavirus Immunization Aged Out No lo nger eligible based on patient's age to complete this topic Insurance [place], [place] [id number] MEDICAID [employer] Care Teams Instructional Coach Relationship Specialty Start Date End Date Provider, None [place] PCP - General 08/05/22
--- OUTSIDE RECORDS SUMMARY | 2024-11-08 08:41 | XMS_ITS ---
Author Organization [employer] [facility] Address [address] [place] [address] Care Team Providers Care Chief Deputy Coroner Name Role Phone Ju Maldonado Primary Care Provider REASON FOR VISIT maciej benz Encounters Encounter Location Date Provider Diagnosis [facility] [address] [place] [address] 08/02/2024 Ju Maldonado Plan Of Treatment No Information Progress Notes * AMITA JazmynDOB:1985 (39 yo F)Acc No.[id number]:08/02/2024 Patient: Jazmyn ARIAS :1985 A ge:39 Y S ex:Female Address:[address] [place], [address] * true * Date: Generated for Tyleri bethany/Faindiag/eTransmitting on: 0 11/08/2024 08:41 AM CDT
--- OUTSIDE RECORDS SUMMARY | 2024-11-08 08:41 | XMS_ITS ---
Author Organization [facility] Address [address] [address] Care Team Providers Care Manager Estate Name Role Phone Ju Maldonado Primary Care Provider REASON FOR VISIT Attempting to get INS information. Encounters Encounter Location Date Provider Diagnosis [facility] - Ju Maldonado [address] [place] [address] 08/01/2024 Ju Maldonado Plan Of Treatment No Information Progress Notes * AMITA LoubrianaDOB:1985 (39 yo F)Acc No.[id number]:08/01/2024 Patient: Jazmyn ARIAS :1985 A ge:39 Y S ex:Female Address:[address] [place], [address] * true * Date: Generated for Printi ng/Faxing/eTransmitting on: 0 11/08/2024 08:40 AM CDT
--- OUTSIDE RECORDS SUMMARY | 2024-11-08 08:41 | XMS_ITS | Encounter Summary ---
Author Organization [facility] Address [address] [place] [address] Care Team Providers Care Sales Leader Name Role Phone Chaparro Harris MD Primary Care Provider [phone] Jeff Umanzor MD Unavailable [phone] Encounter Details Date Type Department Care Team (Late st Contact Info) Description 07/07/2024 Telephone [facility] [address] [place] [address] Martha Stinson RN Social History Tobacco Use [...] on file Legal Sex Female 8:26 PM FINANCIAL INVESTMENT ADVISER Gender Identity Not on file Sexual Orientation Not on file documented as of this encounter Plan of Treatment Not on file documented as of this encounter Visit Diagnoses Not on filedocumented in this encounter Additional Health Concerns Infection Onset Date Last Indicated Resolved Time COVID: Suspected 09/28/2024 09/28/2024 09/28/2024 8:51 AM CDT documented as of this encounter Care Teams Sales Leader Relationship Specialty Start Date End Date Chaparro Harris MD [address] [place] [address] PCP - General Family Medicine 10/01/21 Jeff Umanzor MD [address] [place] [address] Referring Physician Obstetrics and Gynecology 08/10/23 documented as of this encounter
--- OUTSIDE RECORDS SUMMARY | 2024-11-08 08:41 | XMS_ITS | Encounter Summary ---
Author Organization [facility] Healthcare Address [address] [place] [address] Care Team Providers Care Staff Electronic Warfare Officer Name Role Phone Chaparro Harris MD Primary Care Provider [phone] Jeff Umanzor MD Unavailable [phone] Reason for Visit * Auth/Cert (Routine) Specialty Diagnoses / Procedures Referred By Contac t Referred To Contact Diagnoses Rectal bleeding Rectal pain Rectal bleeding [K62.5] Rectal pain [K62.89] Procedures SC SIGMOIDOSCOPY FLX DX W/COLLJ SPEC BR/WA IF PFRMD SIGMOIDOSCOPY Referral ID Status Reason Start Date Expiration Date Visits Re quested Visits Authorized [id number] 1 1 Encounter Details Date Type Department Care Team (Late st Contact Info) Description 04/15/2024 Hospital Encounter [facility] [address] [place] [address] Laverne Monteiro MD [address] [place] [address] [address] Social History Tobacco Use Types Packs/Day Years [...] you are drinking? Patient does not drink 08/21/202 4 Frequency of Binge Drinking Not on file [...] on file Legal Sex Female 8:26 PM RETAIL SUPPORT SPECIALIST Gender Identity Not on file Sexual [...] or rectal pain documented in this encounter Additional Health Concerns Infection Onset Date Last Indicated Resolved Time COVID: Suspected 09/28/2024 09/28/2024 09/28/2024 8:51 AM CDT documented as of this encounter Care Teams Staff Electronic Warfare Officer Relationship Specialty Start Date End Date Chaparro Harris MD [address] [place] [address] PCP - General Family Medicine 10/01/21 Jeff Umanzor MD [address] [place] [address] Referring Physician Obstetrics and Gynecology 08/10/23 documented as of this encounter
--- OUTSIDE RECORDS SUMMARY | 2024-11-08 08:42 | XMS_ITS | Encounter Summary ---
Author Organization [facility] Healthcare Address [address] [place] [address] Care Team Providers Care Propulsion Generator Repairer Name Role Phone Chaparro Harris MD Primary Care Provider [phone] Jeff Umanzor MD Unavailable [phone] Encounter Details Date Type Department Care Team (Late st Contact Info) Description 09/26/2024 Results Follow-Up [facility] Primary Care at [address] [place] [address] Chaparro Harris MD [address] [place] [address] Social History Tobacco Use Types Packs/Day Years [...] on file Legal Sex Female 8:26 PM FRONT END WEB DESIGNER Gender Identity Not on file Sexual Orientation Not on file documented as of this encounter Plan of Treatment Not on file documented as of this encounter Visit Diagnoses Not on filedocumented in this encounter Additional Health Concerns Infection Onset Date Last Indicated Resolved Time COVID: Suspected 09/28/2024 09/28/2024 09/28/2024 8:51 AM CDT documented as of this encounter Care Teams Propulsion Generator Repairer Relationship Specialty Start Date End Date Chaparro Harris MD [address] [place] [address] PCP - General Family Medicine 10/01/21 Jeff Umanzor MD [address] [place] [address] Referring Physician Obstetrics and Gynecology 08/10/23 documented as of this encounter
--- OUTSIDE RECORDS SUMMARY | 2024-11-08 08:42 | XMS_ITS | Clinical Summary ---
Author Organization [facility] [employer] Address [address] [place] [address] Care Team Providers Care Pig Casting Machine Operator Name Role Phone Addie Jennings MD Unavailable [phone] Thang Heck MD Primary Care Provider [phone] Source Comments [facility],non-owned Affiliates and Associated Physician Practices is amultiple site organization consisting of ambulatory clinics and hospital sitesin [place], [place], [place] and [place]. This disclosure is being madepursuant to the Care Everywhere program and may not contain all information available regarding this patient. Last updated 18.[facility] Allergies Active Allergy Reactions Criticality Noted Date Comments Nsaids Other Low Reaction: Medications * Be aware that medications may not be up to date on this document. Alwaysverify current medications with the patient. HYDROcodone-edwina taminophen ([place]) 5-325 MG tablet TAKE 1 OR 2 TABLETS BY MOUTH EVERY 4 TO 6 HOURS NEEDED FOR PAIN 2 Active venlafaxine XR 24hr (Effexor XR) 37.5 MG capsule Take 1 (one) capsule by mouth every morning 2 Active omeprazole (PriLOSEC) 40 MG capsule Take 1 (one) capsule by mouth daily before breakfast 30 capsule 5 2 Active Active Problems Problem Noted Date Diagnosed [...] Significant adhesions on last operative note Immunizations Immunization Administration Dates Next Due TDAP (7yrs+) 07/06/2017 [...] at Not on file Legal Sex Female 5:27 PM CDT Gender Identity Not on file Sexual Orientation Not on file Last Filed Vital Signs Vital Sign Reading Time Taken Comments Blood Pressure 136/73 07/03/2022 3:58 PM LAUNDRETTE OWNER Pulse 85 07/03/2022 3:58 PM LAUNDRETTE OWNER Temperature 37.1 C (98.7 F) 07/03/2022 3:58 PM LAUNDRETTE OWNER Respiratory Rate 16 07/03/2022 3:58 PM LAUNDRETTE OWNER Oxygen Saturation 100% 07/03/2022 3:58 PM LAUNDRETTE OWNER Inhaled Oxygen Concentration - - Weight 117.9 kg (260 lb) 07/03/2022 3:58 PM LAUNDRETTE OWNER Height 162.6 cm (5' 4 ) 07/03/2022 3:58 PM LAUNDRETTE OWNER Body Mass Index 44.63 07/03/2022 3:58 PM LAUNDRETTE OWNER Plan of Treatment Health Maintenance Due Date Last Done Comments PAP SMEAR 1985 HIV SCREENING 1998 HEPATITIS C SCREENING 05/04/2001 HEPATITIS B VACCINE (1 of 3 - 19+ 3-dose series) 2002 LIPID TESTING 12/29/2023 12/28/2018 COVID-19 VACCINE (1 - 2023-2 5 season) 2024 MAMMOGRAM 06/04/2024 06/04/2022, 05/07/2018 DEPRESSION SCREENING 07/06/2024 INFLUENZA VACCINE (Season Ended) 2025 04/14/2022, 04/17/2021 DTAP/TDAP/TD VACCINES (2 - T d or [...] Resulting Agency Comment Lab Testing performed at: [address] [id number] Lottie Verduzco REGISTRATION REP-PAN PUSHER LAB - CHEMISTRY ORD ERABLES Final Result [facility] ACCOUNT BILL [address] [place] [address] * ALIZE DIAG DIRECT DIG IMAGE BILATERAL [id number] (05/07/2018 9:24 AM CDT) Anatomical Region Laterality Modality Breast Bilateral Mammography 05/07/2018 9:36 AM CDT Addenda Addendum by Mellisa Drake MD on 06/04/2018 11:19 AM LAUNDRETTE OWNER Previous mammograms from [facility] on 04/10/2016 and 03/27/2016 are [...] participate in the care of your patient. [facility] Breast [facility] utilizes [employer] as a reminder system to notify patients [...] utilized. PRIOR: Previous mammogram was performed at [facility]. This was not available for review at [...] utilized. PRIOR: Previous mammogram was performed at [facility]. This was not available for review at [...] participate in the care of your patient. [facility] Breast Care utilizes [employer] as a reminder system to notify patients of their next recommended mammogram. Reading Radiologist: Mellisa Drake MD on 05/07/2018 at 10:53 AM us Mellisa Drake MD MAMMO ORDERABLES Edited Resu lt - Final from Last 3 Months or Most Recently Relevant to Health Maintenance Insurance [facility] Advance Directives * Full Code (Latest Code Status on File) Date Activated Date Inactivated Comments 03/30/2010 2:48 PM 04/09/2010 5:05 AM Care Teams Pig Casting Machine Operator Relationship Specialty Start Date End Date Thang Heck MD [address] [place] [address] PCP - General 06/10/22 Addie Jennings MD [address] [facility] [address] [place] [address] Endocrinology 01/31/20
== END 2024-11-08 08:28 | disposition home or self-care (01) ==
PROVIDERS: PCP Hospitalist; Visit Provider Surgery
DX: N64.4 Mastodynia (principal); N63.23 Unspecified lump in the left breast, lower outer quadrant
CPT/HCPCS: 76642

== ENCOUNTER 2025-02-20 17:16 | Outpatient (CLI) | payer OTHER, SELFPAY ==
--- OUTSIDE RECORDS SUMMARY | 2025-02-20 17:21 | XMS_ITS | Continuity of Care Document ---
Author Organization [facility] Address [address] [place] [address] Phone Care Team Providers Care Campaign Marketing Manager Name Role Phone Linnea Chang DO Unavailable Unavailable Advance Directives Directive Yes / No Effective Date File Name No Information Encounters Encounter Description Practice Location Reason(s) For Visit Diagnoses Date Provider Providers [facility] [address], [place], [place], [id number], tel:[phone] [employer] No Information Chang Linnea. [address], [place], [place], [id number], [place]. tel:[phone] Family History Family Member Type Diagnosis Age At Onset No Information Payers Payer name Insurance type Covered democrat ID Authoriza tion(s) No Information Social History Type Description Quantity Date Captured Comments Sex Female Smoking Status No Information Chief Complaint And Reason For Visit No Information Reason For Referral Reason For Referral No Information History Of Present Illness Encounter Date Complaint History Of Prese nt Illness No Information Functional Status Date Functional Assessmen t No Information Instructions Date Instruction Additional Infor mation No Information Assessments Type Assessment Date No Information Patient Care Teams Name Effective Dates (start - stop) Status Members No Information
--- OUTSIDE RECORDS SUMMARY | 2025-02-20 17:21 | XMS_ITS | Clinical Summary ---
Author Organization [facility] [employer] Address [address] [facility] [address] Care Team Providers Care Communication Consultant Name Role Phone Addie Jennings MD Unavailable [phone] Thang Heck MD Primary Care Provider [phone] Source Comments [facility],non-owned Affiliates and Associated Physician Practices is amultiple site organization consisting of ambulatory clinics and hospital sitesin [place], [place], [place] and [place]. This disclosure is being madepursuant to the Care Everywhere program and may not contain all information available regarding this patient. Last updated 18.[facility] Allergies Active Allergy Reactions Criticality Noted Date Comments Nsaids Other Low Reaction: Medications * Be aware that medications may not be up to date on this document. Alwaysverify current medications with the patient. HYDROcodone-edwina taminophen ([place]) 5-325 MG tablet TAKE 1 OR 2 [...] Comments Blood Pressure 136/73 07/03/2022 3:58 PM SLAT BASKET TOP MAKER Pulse 85 07/03/2022 3:58 PM SLAT BASKET TOP MAKER Temperature 37.1 C (98.7 F) 07/03/2022 3:58 PM SLAT BASKET TOP MAKER Respiratory Rate 16 07/03/2022 3:58 PM SLAT BASKET TOP MAKER Oxygen Saturation 100% 07/03/2022 3:58 PM SLAT BASKET TOP MAKER Inhaled Oxygen Concentration - - Weight 117.9 kg (260 lb) 07/03/2022 3:58 PM SLAT BASKET TOP MAKER Height 162.6 cm (5' 4) 07/03/2022 3:58 PM SLAT BASKET TOP MAKER Body Mass Index 44.63 07/03/2022 3:58 PM SLAT BASKET TOP MAKER Plan of Treatment Health Maintenance Due Date Last Done Comments HIV SCREENING 1998 HEPATITIS C SCREENING 05/04/2001 HEPATITIS B VACCINE (1 of 3 - 19+ 3-dose series) 2002 PAP SMEAR 2004 HPV VACCINE (1 - 3-dose SCDM series) 2010 LIPID TESTING 12/29/2023 12/28/2018 COVID-19 VACCINE ( - 2023-2 5 season) 2024 MAMMOGRAM 06/04/2024 06/04/2022, 05/07/2018 DEPRESSION SCREENING 07/06/2024 INFLUENZA VACCINE (#1) 2025 2, 04/17/2021 DTAP/TDAP/TD VACCINES (2 - T d [...] Resulting Agency Comment Lab Testing performed at: [address] [id number] Lottie Verduzco SUPERVISOR SULFURIC ACID PLANT-BENEFIT DIRECTOR LAB - CHEMISTRY ORD ERABLES Final Result [facility] ACCOUNT BILL [address] [place] [address] * ALIZE DIAG DIRECT DIG IMAGE BILATERAL [id number] (05/07/2018 9:24 AM CDT) Anatomical Region Laterality Modality Breast Bilateral Mammography 05/07/2018 9:36 AM CDT Addenda Addendum by Mellisa Drake MD on 06/04/2018 11:19 AM SLAT BASKET TOP MAKER Previous mammograms from [facility] on 04/10/2016 and 03/27/2016 are [...] participate in the care of your patient. [facility] Breast [facility] utilizes [employer] as a reminder system to notify patients [...] utilized. PRIOR: Previous mammogram was performed at [facility]. This was not available for review at [...] utilized. PRIOR: Previous mammogram was performed at [facility]. This was not available for review at [...] participate in the care of your patient. [facility] Breast Care utilizes [employer] as a reminder system to notify patients of their next recommended mammogram. Reading Radiologist: Mellisa Drake MD on 05/07/2018 at 10:53 AM us Mellisa Drake MD MAMMO ORDERABLES Edited Resu lt - Final from Last 3 Months or Most Recently Relevant to Health Maintenance Insurance [facility] Advance Directives * Full Code (Latest Code Status on File) Date Activated Date Inactivated Comments 03/30/2010 2:48 PM 04/09/2010 5:05 AM Care Teams Communication Consultant Relationship Specialty Start Date End Date Thang Heck MD [address] [place] [address] PCP - General 06/10/22 Addie Jennings MD [address] [facility] [address] [place] [address] Endocrinology 01/31/20
--- OUTSIDE RECORDS SUMMARY | 2025-02-20 17:21 | XMS_ITS | Clinical Summary ---
Author Organization [facility] Address [address] [place] [phone] Phone Care Team Providers Care Motel Maid Name Role Phone Chaparro Harris MD Primary Care Provider [phone] Allergies Active Allergy Reactions Criticality Noted Date [...] Encounters Date Type Department Care Team Description 02/07/2025 External Device Data STL ABSTRACTION Provider, Abstract 01/18/2025 External Device Data ST[facility] ABSTRACTION Provider, Abstract 01/17/2025 External Device Data [facility] ABSTRACTION Provider, Abstract 12/20/2024 External Device Data ST[facility] ABSTRACTION Provider, Abstract 12/06/2024 External Device Data [facility] ABSTRACTION Provider, Abstract 11/24/2024 External Device Data [facility] ABSTRACTION Provider, Abstract 11/22/2024 External Device Data [facility] ABSTRACTION Provider, Abstract [...] on file Legal Sex Female 5:58 AM QUALITY CONTROL PROJECTIONIST Gender Identity Not on file Sexual Orientation [...] 3:35 PM CDT Height 162.6 cm (5' 4) 07/24/2022 12:56 PM QUALITY CONTROL PROJECTIONIST Body Mass Index 44.29 07/24/2022 12:56 PM QUALITY CONTROL PROJECTIONIST Plan of Treatment Upcoming Encounters Date Type Department Care Team (Late st Contact Info) Description 02/21/2025 2:15 PM CDT Office Visit [facility] Oncology and Hematology - [place] [address] [facility] [address] [place] [address] Codey Angeles MD [address] [facility] [address] [place] [address] Health Maintenance Due Date Last Done Comments Pre-Diabetes and Diabetes Screening 1983 HPV VACCINES (1 - 3-dose series) 1998 HEPATITIS B VACCINES (1 of 3 - 19+ 3-dose series) 2002 HPV/Cotest (21-29) 2004 HPV/Cotest (30-65) 2013 Preventative Visit-Managed Medicaid 11/21/2021 11/20/2020, 04/20/2019, 12/27/2018, Additional history exists CERVICAL CANCER SCREENING 11/21/2023 PAP SMEAR 11/21/2023 11/20/2020 BREAST CANCER SCREENING 06/01/2024 06/01/20 23, 06/01/2023, 06/04/2022, Additional history exists INFLUENZA VACCINE (#1) 2025 4, 08/22/2022, 07/06/2022, Additional history exists DTAP/TDAP/TD VACCINES (3 - T d or Tdap) 05/26/2028 05/26/2018, 07/06/2017 Procedures Procedure Name Priority Date/Time Associated Diagnosis Comments MAMMO 3D IZZY DIAGNOSTIC BILAT W OR WO CAD Routine 06/04/2022 2:53 PM QUALITY CONTROL PROJECTIONIST Mastodynia from Last 3 Months or Most Recently Relevant to Health Maintenance Results * MAMMO DIAG BILAT 3D IZZY W OR WO CAD (06/04/2022 2:53 PM QUALITY CONTROL PROJECTIONIST) Anatomical Region Laterality Modality Breast Bilateral Mammography 06/04/2022 2:53 PM QUALITY CONTROL PROJECTIONIST Impressions 06/04/2022 3:09 PM QUALITY CONTROL PROJECTIONIST IMPRESSION: No evidence of malignancy. RECOMMENDATIONS: Bilateral annual screening mammogram. OVERALL FINAL ASSESSMENT: BI-RADS CATEGORY 1: Negative DICTATION LOCATION: [facility] 06/04/2022 3:09 PM QUALITY CONTROL PROJECTIONIST MAMMOGRAPHY DIGITAL DIAGNOSTIC BILATERAL 3-D TOMOGRAPHY WITH [...] ASSESSMENT: BI-RADS CATEGORY 1: Negative DICTATION LOCATION: [facility] Arun Reina MD MAMMO ORDERABLES Final Result from Last 3 Months or Most Recently Relevant to Health Maintenance Insurance [facility] MEDICAID [facility] MEDICAID Care Teams Motel Maid Relationship Specialty Start Date End Date Chaparro Harris MD [address] [place] [address] PCP - General Family Practice 02/27/23
--- OUTSIDE RECORDS SUMMARY | 2025-02-20 17:21 | XMS_ITS | Encounter Summary ---
Author Organization [facility] [employer] [facility] Address [id number] [place] [address] Care Team Providers Care Pulp Operator Name Role Phone Chaparro Harris MD Primary Care Provider [phone] Reason for Visit * Reason Onset Date Comments lab orders 08/25/2022 Encounter Details Date Type Department Care Team (Late Contact Info) Description 08/25/2022 Telephone [facility] Oncology and [facility] [address] [facility] [address] [place] [address] [place] [address] [place] [address] [address] [place] [address] lab orders Social History Tobacco Use Types Packs/Day Years Used Date Smoking Tobacco: Never Smokeless Tobacco: Never Alcohol Use Standard Drinks/Week Comments No 0 (1 standard drink = 0.6 oz pur e alcohol) Comments No Sex and Gender Information Value Date Recorded Sex Assigned at Not on file Legal Sex Female 5:58 AM DORMITORY MAID Gender Identity Not on file Sexual Orientation Not on file COVID-19 Exposure Response Date Recorded In the last 10 days, have yo u been in contact with someone who was confirmed or suspected to have Coronavirus/COVID-19? No / Unsure 08/26/2022 3:07 PM DORMITORY MAID documented as of this encounter Plan of Treatment Upcoming Encounters Date Type Department Care Team (Late Contact Info) Description 02/21/2025 2:15 PM CDT Office Visit [facility] Oncology and Hematology - [place] [address] [facility] [address] [address] [place] [address] Codey Angeles MD [address] [facility] [address] [place] [address] Scheduled Orders Name Type Priority [...] (chronic) documented in this encounter Care Teams Pulp Operator Relationship Specialty Start Date End Date Chaparro Harris MD [address] [place] [address] PCP - General Family Practice 02/27/23 documented as of this encounter
--- OUTSIDE RECORDS SUMMARY | 2025-02-20 17:21 | XMS_ITS | Clinical Summary ---
Author Organization [facility] Address [address] [place] [address] Care Team Providers Care Broom Handle Dipper Name Role Phone Chaparro Harris MD Primary Care Provider [phone] Jeff Umanzor MD Unavailable [phone] Allergies Active Allergy Reactions Criticality Noted Date Comments Nsaids (Non-Steroidal Anti-Inflammatory Drug) Other (See comments) Low Avoids due to weight loss surgery Medications buPROPion XL (WELLBUTRIN XL) 150 mg 24 hr tabletIndications: AME (generalized anxiety disorder),Moderate episode of recurrent major depressive disorder (HCC) Take 1 tablet (150 mg total) by mouth every morning 30 tablet 3 5 Active ondansetron ODT (ZOFRAN-ODT) 4 mg disintegrating tablet Take 1-2 tablets (4-8 mg total) by mouth every 8 (eight) hours as needed for nausea or vomiting 20 tablet 5 Active cyanocobalamin (Vitamin B-12) 1,000 mcg/mL injectionIndicatio ns:Vitamin B12 Deficiency Inject 1 mL (1,000 mcg total) into the muscle as instructed every 30 (thirty) days 1 mL 2 5 Active Active Problems Problem Noted Date Diagnosed Date Urinary tract infection 01/10/2025 Headache syndrome 01/10/2025 Hyperglycemia due to type 2 diabetes mellitus Vitamin D deficiency, unspecified 01/04/2025 Moderate episode of recurrent major depressive d isorder 09/28/2024 Assessment & Plan (09/28/2024 9:15 AM CDT): -Chronic condition -Has been on Sertraline, Ativan and Xanax all with poor results -Interested in new medication, will trial Lexapro 10mg daily and Hydroxyzine 25mg TID PRN -Encouraged to continue seeing counselor at [place] 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 A1c was 7.0 in July, which is when she was diagnosed with type 2 diabetes. She is trying to work on diet and incorporate exercise. No medications currently. She does follow with Endocrinology. Lipoma of left upper extremity 02/24/2024 Assessment [...] wit h both constipation and diarrhea 02/04/2024 Splenomegaly 12/15/2023 Assessment & Plan (12/17/2023 [...] or CMV - given recent travel to [place] w nausea/diarrhea, 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 - avoid strenuous activities/heavy lifting for at least the next 4-6 weeks - patient is very anxious regarding prognosis, discussed there is very low suspicion for malignancy and advised on waiting for additional testing until results from today's visit are available, recommend follow-up with Dr. Harris in about a week Hepatic steatosis 12/15/2023 Assessment & Plan (11/25/2024 2:47 PM CDT): Ongoing. No significant change. Assessment & Plan (12/15/2023 11:15 PM CDT): - incidental finding on CT - associated w CARTER - recommend lifestyle modifications Elevated liver enzymes 12/15/2023 Assessment & Plan (11/25/2024 2:47 PM CDT): Ongoing, at baseline. She has fatty liver disease/hepatic steatosis. No right upper quadrant pain. Assessment & Plan (11/25/2024 2:41 PM CDT): >>ASSESSMENT AND PLAN FOR TRANSAMINITIS WRITTEN ON 12/15/2023 11:13 PM BY DALTON CANALES ART GLASS SETTER - new finding, mild - repeat hepatic panel - possibly associated with CARTER, viral or parasitic infection - consider checking hepatitis panel Chronic nausea 10/02/2022 Assessment & Plan (12/17/2023 [...] loss Assessment & Plan (08/04/2022 4:53 PM CINDER PITMAN): Not well controlled, continues to have significant [...] cannot take NSAIDs due to gastric sleeve. 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 Assessment & Plan (09/10/2021 1:05 PM CINDER PITMAN): Stable, well controlled; TSH at target Continue to check TSH related, no need for thyroid hormone at this time Assessment & Plan (06/25/2021 3:22 PM CINDER PITMAN): Stable, well controlled; continues to follow with Endocrinology; last TSH was normal, ultrasound reviewed No current medications AME (generalized anxiety disorder) 05/26/2018 Assessment & Plan (11/25/2024 2:47 PM CDT): Patient had adverse side effects from Lexapro and Celexa. She is working on weaning off of Celexa. She is taking it every other day since the emergency room. Take it every other day for another week, then stop the med. She does not like how Xanax makes her feel. She was given hydroxyzine, but believes it caused works and headaches. She was on sertraline in the past, and did not think it helped very much with her anxiety. Denies any depression. I educated patient on concerns with frequent use of lorazepam. Only use when absolutely necessary, and having a panic attack. Starting buspirone 5 mg t.i.d. PRN. Educated on use and side effects. Assessment & Plan (09/28/2024 9:13 AM CDT): -Chronic, poorly controlled -Has been on Ativan and Xanax, but with poor results -Will trial on Hydroxyzine TID PRN for anxiety -Encouraged to follow up with Dr. Harris at next appointment next month Assessment & Plan (06/14/2024 3:04 PM CINDER PITMAN): Not well controlled, acutely worsened due to [...] BID Assessment & Plan (08/04/2022 4:52 PM CINDER PITMAN): Not well controlled; worsening; patient reports multiple [...] daily Assessment & Plan (09/10/2021 1:04 PM CINDER PITMAN): Not well controlled, continues to have elevated anxiety and panic attacks, severe anxiety associated with small health concerns Patient reports no relief previously with Lexapro sertraline Patient is unclear if she needs daily medications Continue bupropion 150 mg daily, Valium 5 mg nightly Assessment & Plan (06/25/2021 3:21 PM CINDER PITMAN): Stable, improving; patient reports decreased panic attacks on sertraline Continue Zoloft 50 mg daily, hydroxyzine 25 mg t.i.d. p.r.n. for panic attacks Iron deficiency anemia secon jammie to inadequate dietary iron intake 02/04/2018 Assessment & Plan (09/15/2022 5:09 PM CDT): Stable, patient has iron infusion scheduled Assessment & Plan (09/10/2021 1:04 PM CINDER PITMAN): Stable, improving; no evidence of anemia or iron deficiency at this time; continue to monitor with regular CBCs Assessment & Plan (06/25/2021 3:22 PM CINDER PITMAN): Follows with Hematology for iron infusions B12 deficiency 01/31/2018 Iron deficiency 01/31/2018 Vitamin D deficiency 01/31/2018 Fatigue 01/31/2018 Metabolic and nutritional disorder 01/31/2018 Assessment & Plan (01/31/2018 12:20 PM CDT): Discussed insulin resistance including affect on weight and risk for progression to diabetes. Recommended low-carb, low-glycemic diet; choose whole grains and avoid more highly processed carbohydrates. Discussed potential benefits of this w/r/t gut microbiome. Referred to ADA and [employer] websites for additional information on topics including glycemic index/carbohydrate choices, protein sources. Low grade squamous intraepit helial lesion (LGSIL) on cervicovaginal cytologic smear 08/15/2016 Intestinal malabsorption 07/14/2016 Assessment & Plan (06/25/2021 3:23 PM CINDER PITMAN): Postsurgical changes, secondary to gastric sleeve in 2015 Continue to monitor vitamin deficiencies Continue with B12 injections monthly, iron infusions there to Hematology, will continue to check Positive test for human papillomavirus (HPV) Hypertriglyceridemia 09/26/2015 Eating disorder 07/30/2015 Class 3 severe obesity due t o excess calories with serious comorbidity and body mass index (BMI) of 40.0 to 44.9 in adult 07/19/2015 Assessment & Plan (11/25/2024 2:45 PM CDT): Healthy diet encouraged, and regular exercise. We recommend 150 minutes per week of regular exercise. This can also help with mood. Assessment & Plan (12/17/2023 10:02 AM CDT): Stable, mild downtrending; may be secondary to acute illness Assessment & Plan (09/15/2022 5:08 PM CDT): Stable, improving, has been working on weight loss; follows with job interviewer, cutting back on coffee and trying to eat better Encourage 30 minutes moderate intensity exercise 5 days per week Assessment & Plan (09/10/2021 1:05 PM CINDER PITMAN): Not well controlled, patient has history of gastric sleeve, continues to have bowel issues associated gastric sleeve No significant change in weight, patient has been working on weight loss reports no significant changes Assessment & Plan (06/25/2021 3:24 PM CINDER PITMAN): Not well controlled; patient is status post [...] Overview: Significant adhesions on last operative note Resolved Problems Problem Noted Date Diagnosed Date Resolved Date Rectal bleeding 03/15/2024 11/25/2024 Rectal pain 03/15/2024 11/25/2024 Class 3 severe obesity witho ut serious comorbidity with body mass index (BMI) of 45.0 to 49.9 in adult 12/15/2023 11/25/2024 Encounter for follow-up 12/05/202211/04 Assessment & Plan (12/05/2022 12:52 PM CDT): Patient presents for ER follow-up She was seen on December 01 for cellulitis of her left lower extremity She was started on Keflex and Bactrim Patient states that the cellulitis is improving States there is decreased redness, warmth, pain Continue antibiotics as prescribed Follow up as needed Microscopic colitis 12/03/2021 11/26/19 Change in bowel habits 10/31/202111/25 Alternating constipation and diarrhea 10/31/2021 11/25/2024 Diarrhea 10/31/2021 11/25/2024 Assessment & Plan (09/28/2024 8:53 AM CDT): -Acute condition for past few weeks -Tested for flu, covid, rsv in clinic all negative -Likely secondary to viral infection -Supportive care recommended with hydration, Tylenol and Ibuprofen as needed for body aches, fever Hematuria 10/09/2020 11/25/2024 Mastalgia 04/11/2020 11/25/2024 Assessment & Plan (09/15/2022 5:09 PM CDT): Continues to have significant breast pain; all in left breast, intermittent, can be sharp or sore in nature Follows with breast clinic Continue with dietary changes History of borderline diabetes mellitus 01/31/2018 11/25/2024 Weight loss counseling, encounter for 01/31/2018 02/09/2019 Assessment & Plan (01/31/2018 12:18 PM CDT): Reviewed calorie restriction based on BMR as previously detailed. Reviewed recommendation/goal of >/= 150 minutes/week moderate-intensity aerobic exercise. Asked to keep detailed food diary for at least 1 week and bring to next visit. Dermatitis 10/22/2017 11/25/2024 Status post gastric bypass for obesity 10/22/2017 02/09/2019 Vomiting 04/22/2016 11/25/2024 History of bariatric surgery 03/03/2016 02/09/2019 Assessment & Plan (01/31/2018 12:17 PM CDT): Routine post-bariatric surgery labs to assess for nutritional deficiencies due to malabsorption. Placenta previa 03/30/2010 06/13/2021 History of section, classical 03/30/2010 11/25/2024 Overview (02/09/2019): Overview: Classical sections in 1st and 3rd sections, 2nd LTCS (1st op note not docmented, 2nd and 3rd documented) Encounters Date Type Department Care Team Description 01/30/2025 Telephone [facility] [address] [place] [address] Jody Jordan RN 01/26/2025 Telephone [facility] [address] [place] [address] Jody Jordan RN 01/24/2025 Orders Only [facility] [address] [facility] [address] [place] [phone] Thom Doyle MD Pseudotumor cerebri (Primary Dx) 01/15/2025 3:15 PM CDT Office Visit [facility] Medical [facility] at [address] [place] [address] Radha Meadows NP Migraine without aura and without status migrainosus, not intractable (Primary Dx) 01/10/2025 4:34 PM CDT - 01/10/2025 11:59 PM CDT Hospital Encounter [facility] [address] [place] [address] Pseudotumor cerebri Discharge Disposition: Discharge to home or self care 01/05/2025 3:30 PM CDT Office Visit [facility] [place] [address] [place] [address] [address] [place] [address] Joanne Mcclellan NP Acute cystitis with hematuria (Primary Dx); Irritable bowel syndrome with both constipation and diarrhea; AME (generalized anxiety disorder); Moderate episode of recurrent major depressive disorder (HCC); Type 2 diabetes mellitus with hyperglycemia, without long-term current use of insulin (HCC); Iron deficiency anemia secondary to inadequate dietary iron intake; Headache syndrome; Class 3 severe obesity due to excess calories with serious comorbidity and body mass index (BMI) of 40.0 to 44.9 in adult 01/04/2025 4:30 PM CDT Office Visit [facility] [place] [address] [place] [address] Radha Meadows NP New daily persistent headache (Primary Dx); Abdominal discomfort; Seasonal allergic rhinitis, unspecified trigger 12/30/2024 Telephone [facility] [address] [place] [address] Ju Mehta DO 12/19/2024 Telephone [facility] [address] [place] [phone] Annika Mitchell RN 12/13/2024 Orders Only [facility] [address] [place] [address] Medical Office Building [address] [place] [address] Liana Bishop RN Gastroesophageal reflux disease without esophagitis (Primary Dx); S/P laparoscopic sleeve gastrectomy 12/08/2024 6:30 AM CDT - 12/08/2024 11:59 PM CDT Hospital Encounter [facility] [address] [place] [phone] Gastroesophageal reflux disease without esophagitis; Morbid obesity (HCC); S/P laparoscopic sleeve gastrectomy Discharge Disposition: Discharge to home or self care 11/25/2024 9:00 AM CDT Office Visit [facility] Primary [facility] at [address] [place] [address] Joanne Mcclellan NP AME (generalized anxiety disorder) (Primary Dx); Type 2 diabetes mellitus with hyperglycemia, with long-term current use of insulin (HCC); Class 3 severe obesity due to excess calories with serious comorbidity and body mass index (BMI) of 45.0 to 49.9 in adult; Elevated liver enzymes; Hepatic steatosis 11/25/2024 Telephone [facility] [address] [address] Chaparro Harris MD Medication Request 11/24/2024 Orders Only [facility] [address] [facility] [address] [place] [address] Thom Gasca MD 11/23/2024 Telephone [facility] [address] [place] [address] Chaparro Harris MD Appointment Request from Last 3 Months Immunizations Immunization Administration Dates Next Due Influenza, Trivalent, Preser vative Free, Intramuscular 05/16/2024 Influenza, Unspecified 06/02/2023,2021,08/21/2021(Defer red: Patient Refused),04/17/2021,04/16/2021(Deferre d: Patient Refused),07/06/2020(Deferred: Patient Refused) Tdap 05/26/2018,07/06/2017 Surgical History Surgery Date Site/Laterality Comments HI DELIVERY ONLY X 5 SLEEVE GASTROPLASTY 07/06/2015 - 07/05/2016 TUBAL LIGATION COLONOSCOPY 11/27/2021 LAPAROSCOPIC APPENDECTOMY BARIATRIC SURGERY Medical History Medical History Date Comments B12 deficiency Iron deficiency Fatigue History of nephrolithiasis 2015 Weight loss Hematuria Thyroid disease Vern's disease Headache Anxiety Placenta previa 03/30/2010 Anemia Chronic nausea 10/02/2022 GERD (gastroesophageal reflux disease) Migraines Rectal bleeding 03/15/2024 History of section, classical 0 Overview: Classical sections in 1st and 3rd sections, 2nd LTCS (1st op note not docmented, 2nd and 3rd documented) Family History Medical History Relation Name Comments [...] more points, staff should administer the PHQ-9) 3 01/05/2025 PHQ-9 Answer Date Recorded PHQ-9 Total Score 10 01/05/2025 Personal Safety Answer Date Recorded Have you ever been in or are you currently in a harmful physical or emotional relationship or is someone making you feel afraid or unsafe? Denies 12/08/2024 Comments No Sex and Gender Information Value Date Recorded Sex Assigned at Not on file Legal Sex Female 8:26 PM CINDER PITMAN Gender Identity Not on file Sexual Orientation [...] MAO ,BABY BOY MICHELLE Trejo MD Delivery Location:[facility] 2011 Term C-Sec tion Last Filed Vital Signs Vital Sign Reading Time Taken Comments Blood Pressure 122/86 01/15/2025 3:07 PM CDT Pulse 79 01/15/2025 3:07 PM CDT Temperature 36.5 C (97.7 F) 01/15/2025 3:07 PM CDT Respiratory Rate 18 01/15/2025 3:07 PM CDT Oxygen Saturation 99% 01/15/2025 3:07 PM CDT Inhaled Oxygen Concentration - - Weight 117.9 kg (260 lb) 01/15/2025 3:07 PM CDT Height 162.6 cm (5' 4) 01/15/2025 3:07 PM CDT Body Mass Index 44.63 01/15/2025 3:07 PM CDT Plan of Treatment Upcoming Encounters Date Type Department Care Team (Late st Contact Info) Description 04/14/2025 1:00 PM CDT Hospital Encounter [address] [place] [phone] Marvin Santana MD [address] [address] 04/14/2025 1:00 PM CDT - 04/14/2025 1:30 PM CDT Surgery [facility] [address] [place] [phone] Marvni Santana MD [address] [address] EGD w/Lopez Scheduled Procedures Name Priority Associated Diagnoses Date/Ti me ESOPHAGOGASTRODUODENOSCOPY Gastroesophageal reflux disease without esophagitis Status post laparoscopic sleeve gastrectomy 04/14/2025 1:00 PM CDT Health Maintenance Due Date Last Done Comments Albumin Creatinine Ratio, Urine 1983 Cervical Cancer Screening 1983 Dilated Eye Exam 1983 Regular Well Visit/Exam 18-64 2001 Pneumococcal vaccine <65 (1 of 2 - PCV) 2002 HPV Vaccines (1 - 3-dose SCD M series) 2010 Hemoglobin A1C 01/11/2025 07/14/2024, 05/07, 02/01/2018 Influenza Vaccine (#1) 2025 , 06/02/2023, 04/14/2022, Additional history exists Lipid Panel 07/14/2025 07/14/2024, 04/0 01/2022, 04/23/2021, Additional history exists eGFR 07/14/2025 07/14/2024, 06/0 12/2023, 04/12/2022, Additional history exists Breast Cancer Screening-Mammogram 09/23/2025 09/23/2024, 06/08/2024, 06/01/2023, Additional history exists Depression Screening 01/05/2026 01/05/2025, 11/25/2024, 09/28/2024, Additional history exists Foot Exam 01/05/2026 01/05/2025 DTaP/Tdap/Td Vaccine (3 - Td or Tdap) 05/26/2028 05/26/2018, 07/06/2017 Hepatitis C Screening Completed 10/12/2023 Hepatitis B Screening Completed 12/16/2023 Varicella Vaccines Discontinued Procedures Procedure Name Priority Date/Time Associated Diagnosis Comments CT HEAD WO CONTRAST Schedule ADDIE, Read Routine (Patient lives out of area) 01/10/2025 4:47 PM CDT Pseudotumor cerebri HIGH RESOLUTION ESOPHAGEAL MOTILITY (MANOMETRY) AND AMBULATORY PH IMPEDANCE > 1HOUR (24 HR) Routine 12/09/2024 8:44 AM CDT Gastroesophageal reflux disease without esophagitis Morbid obesity (HCC) S/P laparoscopic sleeve gastrectomy DIAGNOSTIC MAMMOGRAM BILATERAL W BRIAN Schedule Routine, Read Routine (OP Routine) 09/23/2024 7:40 AM CDT EGFR Routine 07/14/2024 11:10 AM CINDER PITMAN HEMOGLOBIN A1C Routine 07/14/2024 11:10 AM CINDER PITMAN LIPID PANEL Routine 07/14/2024 11:10 AM CINDER PITMAN HEPATITIS C ANTIBODY Routine 10/12/2023 9:08 AM CDT Screening for STDs (sexually transmitted diseases) from Last 3 Months or Most Recently Relevant to Health Maintenance Results * CT Head WO Contrast (01/10/2025 4:47 PM CDT) Anatomical Region Laterality Modality Head and Neck N/A Computed Tomogra phy 01/10/2025 5:18 PM CDT Impressions 01/10/2025 5:18 PM CDT No intracranial bleed, mass or acute infarct. Electronically signed by: Esequiel Rivera 01/10/2025 5:18 PM CDT EXAMINATION: CT HEAD WO CONTRAST HISTORY: The patient is a 39-year-old female who presents with severe headaches. Comparison made with the previous study dated 05/23/2024. TECHNIQUE: Axial images obtained through the brain with thin sections and viewed both in soft tissue and bone window settings. Following this, coronal and sagittal reconstructions were performed. FINDINGS: Axial images through the brain reveals the 4th, 3rd and lateral ventricles to be normal in size and position. Cerebral sulci not prominent. No intracerebral hemorrhage or extra-axial fluid collection is noted. Images obtained in the coronal and sagittal planes adds adds no further information. Axial images obtained at bone window settings reveal the cranial vault to be intact. Mastoid air cells and paranasal sinuses are normally aerated. Procedure Note Ольга Perdue MD - 01/10/2025 EXAMINATION: CT HEAD WO CONTRAST HISTORY: The patient is a 39-year-old female who presents with severe headaches. Comparison made with the previous study dated 05/23/2024. TECHNIQUE: Axial images obtained through the brain with thin sections and viewed both in soft tissue and bone window settings. Following this, coronal and sagittal reconstructions were performed. FINDINGS: Axial images through the brain reveals the 4th, 3rd and lateral ventricles to be normal in size and position. Cerebral sulci not prominent. No intracerebral hemorrhage or extra-axial fluid collection is noted. Images obtained in the coronal and sagittal planes adds adds no further information. Axial images obtained at bone window settings reveal the cranial vault to be intact. Mastoid air cells and paranasal sinuses are normally aerated. IMPRESSION: No intracranial bleed, mass or acute infarct. Electronically signed by: Ольга Perdue M.D. Thom Doyle MD IMG CT PROCEDURES Final Result * High resolution esophageal motility (manometry) and ambulatory pH impedance > 1 hr (24 hr) - (12/09/2024 8:44 AM CDT) Anatomical Region Laterality Modality Other Eriberto Toledo MD GI LAB PROCEDURE ORDERABLES Fin al Result * Diagnostic Mammogram Bilateral W Brian (09/23/2024 7:40 AM CDT) Anatomical Region Laterality Modality Breast Bilateral Mammography Kandi Provider IMG MAMMO PROCEDURES Odalys l Result * eGFR (07/14/2024 11:10 AM CINDER PITMAN) eGFR >90 >=60 mL/min/1. 73 m2 Comment: [...] was last reviewed 2021. Testing performed by: [facility], [address] [place] [address]., [id number] Blood 07/14/2024 11:1 0 AM CINDER PITMAN 07/14/2024 10:41 PM CINDER PITMAN Ju Maldonado MD LAB BLOOD ORDERABLES Odalys l Result CATRINA MULLER SCIPIO) [address] [facility] Department of Laboratories [place], [place] [id number] * (ABNORMAL) Hemoglobin A1c (07/14/2024 11:10 AM CINDER PITMAN) Hgb A1C 7.0(H) 4.0 - 5.6 % Comment:Testing performed by : [facility], [address] [place] [address]., [id number] Estimated Average Glucose 154 mg/dL CATRINA MULLER (KEKE) Comment: The ADA recommends reporting an estimated Average Glucose (eAG) with all Hemoglobin A1c results using the equation derived from a study of 507 normal and diabetic adults. Minority populations were underrepresented and children were not included. (Diabetes Care 31:3933-0404, 2008). The eAG is not equivalent to a fasting glucose. Testing performed by: [facility], [address] [place] [address]., [id number] Blood 07/14/2024 11:1 0 AM CINDER PITMAN 07/14/2024 11:11 AM CINDER PITMAN Ju Maldonado MD LAB BLOOD ORDERABLES Odalys dick Result CATRINA YOHANA (SCIPIO) [address] [facility] Department [place] [address] * (ABNORMAL) Lipid panel (07/14/2024 11:10 AM CINDER PITMAN) Cholesterol 224(H) 30 - 199 mg/dL Comment: [...] revised on 2018. Testing performed by: [facility], [address] [place] [address]., [address] Triglycerides 91 <=149 mg/dL CATRINA MULLER (KEKE) [...] last revised on 2018. Testing performed by: [facility], [address] [place] [address], [place]., [address] HDL 66 >=40 mg/dL CATRINA MULLER (KEKE) [...] revised on 2018. Testing performed by: [facility], [address] [place] [address]., [address] LDL, calculated 142(H) <=129 mg/dL CATRINA MULLER [...] 2004;110:227 3. Shukri King al. RUBIN Cardiol. 2019November 03;5(5):540-548. doi: 10.1001/[email or web address].2020.0013 Current Interpretive Data was last revised on 2024. Testing performed by: [facility], [address] [place] [address], [place]., [address] Non-HDL Cholesterol 158 mg/dL CATRINA MULLER (KEKE) [...] revised on 2018. Testing performed by: [facility], [address] [place] [address]., [address] Chol/HDL ratio 3 FORD Salcedo YOHANA (SCIPIO) Comment:Testing performed by : [address] [address] Blood 07/14/2024 11:1 0 AM CINDER PITMAN 07/14/2024 11:10 AM CINDER PITMAN Ju Maldonado MD LAB BLOOD ORDERABLES Odalys l Result Performing Organization Address City/[facility] Co de Phone Number CATRINA [facility] (SCIP[place]) 1 [facility] Department [place] [address] * Hepatitis C antibody Blood (10/12/2023 9:08 [...] O RDERABLES Final Result Performing Organization Address City/[facility]/ZIP Co de Phone Number CATRINA [address] [facility] Department [place] [address] from Last 3 Months or Most Recently Relevant to Health Maintenance Insurance [facility] Advance Directives For more information, please contact: [phone] * Full Code (Latest Code Status on File) Date Activated Date Inactivated Comments 11/27/2021 8:51 AM 11/27/2021 4:54 PM * Full Code Date Activated Date Inactivated Comments 11/27/2021 8:51 AM 11/27/2021 8:51 AM * Full Code Date Activated Date Inactivated Comments 02/09/2019 1:46 PM 02/09/2019 7:27 PM Care Teams Broom Handle Dipper Relationship Specialty Start Date End Date Chaparro Harris MD [address] [place] [address] PCP - General Family Medicine 10/01/21 Jeff Umanzor MD [address] [place] [address] Referring Physician Obstetrics and Gynecology 08/10/23
--- OUTSIDE RECORDS SUMMARY | 2025-02-20 17:21 | XMS_ITS ---
Author Organization [facility] Address [address] [place] [address] Care Team Providers Care Commercial Administrator Name Role Phone Ju Maldonado Primary Care Provider [phone] REASON FOR VISIT 6 WEEK FOLLOW UP Encounters Encounter Location Date Provider Diagnosis [facility] - Ju Maldonado [address] [place] [address] 08/25/2024 Ju Maldonado Plan Of Treatment No Information Progress Notes * Jazmyn LEVIDOB:1985 (39 yo F)Acc No.[id number]:08/25/2024 Progress Notes Patient: Jazmyn ARIAS Provider: Almita Maldonado MD :1985 A ge:39 Y S ex:Female Date:08/25/2024 Address:[address] [facility]-[address] Subjective: * Chief Complaints: * 1 . 6 WEEK FOLLOW UP. * Medical History: Objective: * Vitals: Assessment: Plan: * Treatment: * Billing Information: * Visit Code: * Procedure Codes: * Electronic signature of Alban Maldonado MD on 02/20/2025 at 05:21 PM CDT Sign off status: Pending * Provider: Almita Maldonado MD Date: 08/25/2024 Generated for Jose Alberto sims/Herb/eTransmitting on: 02/20/2025 05:21 PM CDT
--- OUTSIDE RECORDS SUMMARY | 2025-02-20 17:21 | XMS_ITS | Encounter Summary ---
Author Organization [facility] Healthcare Address [address] [place] [address] Care Team Providers Care Jacquard Twine Polisher Operator Name Role Phone Chaparro Harris MD Primary Care Provider [phone] Jeff Umanzor MD Unavailable [phone] Reason for Visit * Auth/Cert (Routine) Specialty Diagnoses / Procedures Referred By Contac t Referred To Contact Diagnoses Rectal bleeding Rectal pain Rectal bleeding [K62.5] Rectal pain [K62.89] Procedures DC SIGMOIDOSCOPY FLX DX W/COLLJ SPEC BR/WA IF PFRMD SIGMOIDOSCOPY Referral ID Status Reason Start Date Expiration Date Visits Re quested Visits Authorized [id number] 1 1 Encounter Details Date Type Department Care Team (Late st Contact Info) Description 04/15/2024 Hospital Encounter [facility] [address] [place] [address] Laverne Monteiro MD [address] [place] [address] Social History Tobacco Use Types Packs/Day Years [...] on file 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 Gender Identity Not on file Sexual Orientation Not on file documented as of this encounter Plan of Treatment Upcoming Encounters Date Type Department Care Team (Late st Contact Info) Description 04/14/2025 1:00 PM CDT Hospital Encounter [facility] [address] [place] [phone] Marvin Santana MD [address] [address] 04/14/2025 1:00 PM CDT - 04/14/2025 1:30 PM CDT Surgery [facility] [address] [place] [phone] Marvin Santana MD [address] [address] EGD w/Lopez Scheduled Procedures Name Priority Associated Diagnoses Date/Ti md ESOPHAGOGASTRODUODENOSCOPY Gastroesophageal reflux disease without esophagitis Status post laparoscopic sleeve gastrectomy 04/14/2025 1:00 PM CDT documented as of this encounter Visit Diagnoses Not on filedocumented in this encounter Admitting Diagnoses Diagnosis Rectal bleeding Hemorrhage of rectum and anus Rectal pain Anal or rectal pain documented in this encounter Additional Health Concerns Infection Onset Date Last Indicated Resolved Time COVID: Suspected 09/28/2024 09/28/2024 09/28/2024 8:51 AM CDT documented as of this encounter Care Teams Jacquard Twine Polisher Operator Relationship Specialty Start Date End Date [place] [address] PCP - General Family Medicine 10/01/21 Jeff Umanzor MD [address] [place] [address] Referring Physician Obstetrics and Gynecology 08/10/23 documented as of this encounter
--- OUTSIDE RECORDS SUMMARY | 2025-02-20 17:21 | XMS_ITS | Encounter Summary ---
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 Gender Identity Not on file Sexual Orientation Not on file documented as of this encounter Plan of Treatment Upcoming Encounters Date Type Department Care Team (Late st Contact Info) Description 04/14/2025 1:00 PM CDT Hospital Encounter [facility] [address] [place] [phone] Marvin Santana MD [address] [address] 04/14/2025 1:00 PM CDT - 04/14/2025 1:30 PM CDT Surgery [facility] [address] [place] [phone] Marvin Santana MD [address] [address] EGD w/Lopez Scheduled Procedures Name Priority Associated Diagnoses Date/Ti me ESOPHAGOGASTRODUODENOSCOPY Gastroesophageal reflux disease without esophagitis Status post laparoscopic sleeve gastrectomy 04/14/2025 1:00 PM CDT documented as of this encounter Visit Diagnoses Not on filedocumented in this encounter Additional Health Concerns Infection Onset Date Last Indicated Resolved Time COVID: Suspected 09/28/2024 09/28/2024 09/28/2024 8:51 AM CDT documented as of this encounter Care Teams Automobile Salesman Relationship Specialty Start Date End Date Chaparro Harris MD [address] [place] [address] PCP - General Family Medicine 10/01/21 Jeff Umanzor MD [address] [place] [id number] Referring Physician Obstetrics and Gynecology 08/10/23 documented as of this encounter
--- OUTSIDE RECORDS SUMMARY | 2025-02-20 17:21 | XMS_ITS | Patient Health Record ---
Author Organization [facility] Address [address] [address] Care Team Providers Care Aoc Aadc Operations Staff Officer Name Role Phone Ju Maldonado Primary Care Provider [phone] Reason For Referral No Information Medications Medication [...] Status Risk Notes Problem Vitamin D deficiency (72709647) Vitamin D deficiency, unspecified (E55.9) Active confirmed Problem Hyperglycemia due to type 2 diabetes mellitus (825205459941867) Type 2 diabetes mellitus with hyperglycemia (E11.65) Active confirmed Problem Hyperlipidemia (08598625) Hyperlipidemia, unspecified (E78.5) Active confirmed Problem Hypothyroidism (30970254) Hypothyroidism, unspecified (E03.9) Active confirmed Problem Obesity (235319113) Obesity, unspecified (E66.9) Active confirmed Problem Non-toxic goiter (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, unspecified (E04.9) Active confirmed Problem Autoimmune thyroiditis (71340249) 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) Active confirmed Problem Polycystic ovary syndrome (disorder) (896979745) Polycystic ovarian syndrome (E28.2) Active confirmed Vital Signs Heart Rate 78 /min 07/25/2024 Respiratory Rate 12 /min 07/25/2024 Blood pressure diastolic 80 mm Hg 07/25/2024 Height 65 in 07/25/2024 Blood pressure systolic 130 mm Hg 07/25/2024 Weight 260 lbs 07/25/2024 BMI 43.26 kg/m2 07/25/2024 Encounters Encounter Location Date Provider Diagnosis [facility] - Ju Nomiku [address] [place] [address] 08/25/2024 Ju Maldonado [employer] [employer] [facility] [address] [place] [address] 07/12/2024 Ju Maldonado [facility] [address] [place] [address] 07/14/2024 Ju Maldonado Obesity, unspecified E66.9 [facility] - Ju Maldonado [address] [place] [address] 07/25/2024 Ju Maldonado [facility] [address] [place] [address] 07/26/2024 Ju Maldonado [facility] - Ju [address] [address] [place] [address] 07/26/2024 Ju Maldonado Type 2 diabetes mellitus with hyperglycemia E11.65 [facility] - Ju [address]iku [address] [place] [address] 08/01/2024 Ju Maldonado [facility] [address] [place] [address] 08/02/2024 Ju [facility], [facility] - Ju [address] [address] [place] [address] 07/12/2024 Ju Maldonado Autoimmune thyroidit is E06.3 ; Other fatigue R53.83 ; Obesity, unspecified E66.9 ; Abnormal weight gain R63.5 ; Vitamin D deficiency, unspecified E55.9 ; Hirsutism L68.0 ; Family history of diabetes mellitus Z83.3 and Nontoxic goiter, unspecified E04.9 [facility] Ju Maldonado [address] [place] [address] 07/25/2024 Ju Maldonado Type 2 diabetes mellitus with hyperglycemia E11.65 ; Hypothyroidism, unspecified E03.9 ; Obesity, unspecified E66.9 ; Polycystic ovarian syndrome E28.2 and Hyperlipidemia, unspecified E78.5 [facility]- [facility]. [address] [address] [place] [address] 07/15/2024 Ju Maldonado Assessments Encounter Date Diagnosis [...] referring and communicating with other health healthcare liaison, documenting clinical information in the electronic or [...] increase to 5 mg weeklyEducate patient on [employer] Diabetes Association diet recommendationsLifestyle modifications to include [...] referring and communicating with other health healthcare liaison, documenting clinical information in the electronic or [...] Insured Coverage Start Date Coverage End Date [address] [id number] Jazmyn San Self - patient is the insured Medical (General) History Medical History History ICD Code anxiety hashimotos thyroiditis obesity type 2 DM
--- OUTSIDE RECORDS SUMMARY | 2025-02-20 17:21 | XMS_ITS | Clinical Summary ---
Author Organization [facility] Address [address] [address] Phone Care Team Providers Care Fretted Instrument Repairer Name Role Phone Chaparro Harris MD Primary Care Provider [phone] Allergies No known active allergies Medications ondansetron (ZOFRAN-ODT) 4 MG TABLET DISPERSIBLEIndi cations:Nausea and Vomiting Take 1 Tablet by mouth every 8 hours as needed for Nausea - 1st line. Indications: Nausea and Vomiting 10 Tablet 08/04/2024 Active Active Problems No known active problems Encounters Date Type Department Care Team Description 01/04/2025 8:15 PM CDT - 01/04/2025 10:04 PM CDT Emergency [facility] Emergency [address] [place] [address] Tristan Gardiner MD Generalized abdominal pain Discharge Disposition: Discharged to home or Selfcare 01/04/2025 Travel 11/23/2024 11:21 AM CDT - 11/23/2024 3:16 PM CDT Emergency [facility] Emergency [address] [place] [address] Nadir Veloz PAC Chest pain Discharge Disposition: Discharged to home or Selfcare 11/23/2024 Travel from Last 3 Months Social History [...] Sex Assigned at Female 05/23/2024 7:05 PM 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 Legal Sex Female 1:02 PM 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 Gender Identity Female 05/23/2024 7:05 PM 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 Sexual Orientation Not on file Last Filed Vital Signs Vital Sign Reading Time Taken Comments Blood Pressure 122/66 01/04/2025 9:00 PM CDT Pulse 66 01/04/2025 9:45 PM CDT Temperature 36.6 C (97.9 F) 01/04/2025 7:19 PM CDT Respiratory Rate 16 01/04/2025 7:19 PM CDT Oxygen Saturation 100% 01/04/2025 9:45 PM CDT Inhaled Oxygen Concentration - - Weight 117.9 kg (260 lb) 01/04/2025 7:19 PM CDT Height 162.6 cm (5' 4) 01/04/2025 7:19 PM CDT Body Mass Index 44.63 01/04/2025 7:19 PM CDT Plan of Treatment Health Maintenance Due Date Last Done Comments Hepatitis C Virus (HCV) Screening 1983 Hepatitis B Immunization (1 of 3 - 19+ 3-dose series) 2002 Pap Smear 2004 Human Papillomavirus (HPV) Immunization (1 - 3-dose SCDM series) 2010 Cervical Cancer Screening (CCS) 2013 HPV/Cotest 2013 SARS-COV-2 Immunization ( season) 2024 Influenza Immunization (#1) 03/06/202505/06, 06/02/2023, 04/14/2022, Additional history exists Mammogram 06/08/2025 06/08/2024, 05/07, 08/18/2022, Additional history exists Respiratory Syncytial Virus (RSV) Immunization (Adult) (1 - 1-dose 75+ series) 2058 DTaP/Tdap/Td Immunization Discontinued 05/26/2018, 07/2017 TdaP Immunization Completed 05/26/2018, 07/06/2017 Discussion re Starting/Frequency of Mammograms Completed 06/08/2024, [...] Name Priority Date/Time Associated Diagnosis Comments CT ABDOMEN PELVIS W/ CONTRAST Stat with Interpretation 01/04/2025 9:23 PM CDT POCT URINE HCG () STAT 01/04/2025 7:47 PM CDT URINALYSIS REFLEX IF INDICATED BY ABNORMAL RESULTS STAT 01/04/2025 7:45 PM CDT GOLD TOP TUBE STAT 01/04/2025 7:21 PM CDT BLUE TOP TUBE STAT 01/04/2025 7:21 PM CDT CBC WITH AUTO DIFFERENTIAL STAT 01/04/2025 7:21 PM CDT EXTRA TUBES STAT 01/04/2025 7:21 PM CDT LIPASE STAT 01/04/2025 7:21 PM CDT CMP (COMPREHENSIVE METABOLIC PANEL) STAT 01/04/2025 7:21 PM CDT COMPLETE BLOOD COUNT (CBC) WITH DIFF STAT 01/04/2025 7:21 PM CDT CBC WITH AUTO DIFFERENTIAL STAT 11/23/2024 1:22 PM CDT COMPLETE BLOOD COUNT (CBC) WITH DIFF STAT 11/23/2024 1:22 PM CDT XR CHEST 2 VIEWS STAT 11/23/2024 12:01 PM CDT EKG 12 LEAD STAT 11/23/2024 11:24 AM CDT TROPONIN I, HIGH SENSITIVITY (HSTRP) STAT 11/23/2024 11:14 AM CDT MAGNESIUM (MG) STAT 11/23/2024 11:14 AM CDT CMP (COMPREHENSIVE METABOLIC PANEL) STAT 11/23/2024 11:14 AM CDT EKG SCAN 11/23/2024 12:00 AM CDT from Last 3 Months Results * CT ABDOMEN PELVIS W/ CONTRAST (01/04/2025 9:23 PM CDT) Anatomical Region Laterality Modality Abdomen N/A Computed Tomogra phy 01/04/2025 9:53 PM CDT Impressions 01/04/2025 9:56 PM CDT IMPRESSION: 1. Left ovarian corpus luteum cyst measuring 16 mm. 2. Prior partial sleeve gastrectomy. Narrative 01/04/2025 9:56 PM CDT EXAM DESCRIPTION: CT ABDOMEN PELVIS W/ CONTRAST REASON FOR STUDY: abdominal pain, nausea x 2 weeks. pt states she does not feel like she is able to empty her bowels completely. TECHNIQUE: CT scan of the abdomen and pelvis performed with intravenous and without oral contrast using helical scanning technique with dynamic intravenous contrast injection. Reconstructed coronal and sagittal MPR images reviewed. All images stored on PACS. Automated exposure control was used as a dose optimization technique for this examination. CONTRAST TYPE/DOSE: 100mL of IOPAMIDOL 76 % IV SOLN injected COMPARISON: 08/04/2024 FINDINGS: LOWER CHEST: Mild scattered subsegmental atelectasis. No pleural effusion. Imaged portions of the heart and esophagus are within normal limits. LIVER: Normal size. No identified cystic or solid masses. Mild diffuse hepatic steatosis. The hepatic and portal veins are patent. GALLBLADDER: Normal. BILE DUCTS: No intrahepatic or extrahepatic ductal dilatation. SPLEEN: Normal size. No focal lesions. PANCREAS: No identified cystic or solid masses. No significant calcifications. No adjacent inflammation or peripancreatic fluid collections. Pancreatic duct not dilated. ADRENALS: Normal. KIDNEYS/URINARY TRACT: No identified significant cystic or solid masses. No visualized stones. No hydronephrosis or hydroureter. Symmetric enhancement. Urinary bladder is unremarkable. GI: Prior partial sleeve gastrectomy. The stomach is otherwise unremarkable. The small bowel and colon are normal in course and caliber with no evidence of obstruction or inflammation. Prior appendectomy. PERITONEUM: No ascites or free air. No lymphadenopathy. RETROPERITONEUM: No mass or adenopathy. REPRODUCTIVE: The uterus is unremarkable. Bilateral adnexal follicles are present with a left ovarian corpus luteum cyst measuring 16 mm. VASCULATURE: No abdominal aortic aneurysm. The abdominal aorta and its branches are patent. MUSCULOSKELETAL: No acute fractures or aggressive osseous lesions. T7 vertebral body hemangioma. THIS IS AN ELECTRONICALLY VERIFIED FINAL REPORT 01/04/2025 9:53 PM - Electronically signed by Chace Singer M.D. AT: AT Report ID: [id number] Reading Location: [place] [address] Procedure Note Chace Singer MD - 01/04/2025 EXAM DESCRIPTION: CT ABDOMEN PELVIS W/ CONTRAST REASON FOR STUDY: abdominal pain, nausea x 2 weeks. pt states she does not feel like she is able to empty her bowels completely. TECHNIQUE: CT scan of the abdomen and pelvis performed with intravenous and without oral contrast using helical scanning technique with dynamic intravenous contrast injection. Reconstructed coronal and sagittal MPR images reviewed. All images stored on PACS. Automated exposure control was used as a dose optimization technique for this examination. CONTRAST TYPE/DOSE: 100mL of IOPAMIDOL 76 % IV SOLN injected COMPARISON: 08/04/2024 FINDINGS: LOWER CHEST: Mild scattered subsegmental atelectasis. No pleural effusion. Imaged portions of the heart and esophagus are within normal limits. LIVER: Normal size. No identified cystic or solid masses. Mild diffuse hepatic steatosis. The hepatic and portal veins are patent. GALLBLADDER: Normal. BILE DUCTS: No intrahepatic or extrahepatic ductal dilatation. SPLEEN: Normal size. No focal lesions. PANCREAS: No identified cystic or solid masses. No significant calcifications. No adjacent inflammation or peripancreatic fluid collections. Pancreatic duct not dilated. ADRENALS: Normal. KIDNEYS/URINARY TRACT: No identified significant cystic or solid masses. No visualized stones. No hydronephrosis or hydroureter. Symmetric enhancement. Urinary bladder is unremarkable. GI: Prior partial sleeve gastrectomy. The stomach is otherwise unremarkable. The small bowel and colon are normal in course and caliber with no evidence of obstruction or inflammation. Prior appendectomy. PERITONEUM: No ascites or free air. No lymphadenopathy. RETROPERITONEUM: No mass or adenopathy. REPRODUCTIVE: The uterus is unremarkable. Bilateral adnexal follicles are present with a left ovarian corpus luteum cyst measuring 16 mm. VASCULATURE: No abdominal aortic aneurysm. The abdominal aorta and its branches are patent. MUSCULOSKELETAL: No acute fractures or aggressive osseous lesions. T7 vertebral body hemangioma. THIS IS AN ELECTRONICALLY VERIFIED FINAL REPORT 01/04/2025 9:53 PM - Electronically signed by Chace Singer M.D. AT: AT Report ID: [id number] Reading Location: [id number] IMPRESSION: 1. Left ovarian corpus luteum cyst measuring 16 mm. 2. Prior partial sleeve gastrectomy. Tristan Gardiner MD IMG CT ORDERABLES Final R esult * POCT URINE HCG () (01/04/2025 7:47 PM CDT) [facility] POC URINE Negative POC URINE CONTROL Magnetic Testing Technician Pass Urine 01/04/2025 7:47 PM CDT Tristan Gardiner MD POINT OF CARE TESTING ([facility]) Final Result * (ABNORMAL) URINALYSIS REFLEX IF INDICATED BY ABNORMAL RESULTS (01/04/2025 7:45 PM CDT) Pathologist [facility] SPECIFIC GRAVITY 1.025 1.003 - 1.030 01/04/2025 8:27 PM CDT [facility] URINE PH 6.0 5.0 - 9.0 01/04/2025 8:27 PM CDT [facility] WBC ESTERASE Negative Negative 01/04/2025 8:27 PM CDT [facility] NITRITE Negative Negative 01/04/2025 8:27 PM CDT [facility] PROTEIN, RANDOM URINE 30 mg/dL(A) Negative 01/04/2025 8:27 PM CDT [facility] URINE GLUCOSE, QUAL Negative Negative 01/04/2025 8:27 PM CDT [facility] URINE KETONES 5 mg/dL(A) Negative 01/04/2025 8:27 PM CDT [facility] UROBILINOGEN Normal Normal mg/dL 01/04/2025 8:27 PM CDT [facility] URINE BLOOD 50 /uL(A) Negative renee/ul 01/04/2025 8:27 PM CDT [facility] URINALYSIS COLOR Yellow 01/05/20 8:27 PM CDT [facility] URINALYSIS CLARITY Clear 01/04/2025 8:27 PM CDT [facility] WBC (Urine) 0-5 Negative, 0-5 /hpf 01/04/2025 8:27 PM CDT [facility] URINE RBC'S 3-5(A) Negative, 0-2 /hpf 01/04/2025 8:27 PM CDT [facility] EPITHELIAL CELLS Small amount /lpf 2024 8:27 PM CDT [facility] BACTERIA, URINE Moderate(A) Negative /hpf 01/04/2025 8:27 PM CDT [facility] Urine URINE SPECIMEN / Unknown Non-Phlebotomy Collection / Unknown 01/04/2025 7:45 PM CDT 01/04/2025 8:02 PM CDT us Tristan Gardiner MD URINE ORDERABLES Final Re sult [facility] [address] [place] [address] * GOLD TOP TUBE (01/04/2025 7:21 PM CDT) Blood No Phlebotomy Charged / Unknown 01/04/2025 7:21 PM CDT 01/04/2025 7:36 PM CDT us Obdulio Cline MD CHEMISTRY ORDERABLES Final Result [facility] [address] [place] [address] * BLUE TOP TUBE (01/04/2025 7:21 PM CDT) Blood No Phlebotomy Charged / Unknown 01/04/2025 7:21 PM CDT 01/04/2025 7:36 PM CDT us Obdulio Cline MD HEMATOLOGY ORDERABLES Odalys l Result Performing Organization Address City/[facility]/ZIP Co de Phone Number [facility] [address] [place] [address] * (ABNORMAL) CBC WITH AUTO DIFFERENTIAL (01/04/2025 7:21 PM CDT) Only the most recent of2 resultswithin the time period is included. WBC 8.03 4.00 - 12.00 10(3)/mcL 01/04/2025 7:40 PM CDT [facility] RBC 4.46 3.80 - 5.30 10(6)/mcL 01/04/2025 7:40 PM CDT [facility] HEMOGLOBIN (HGB) 12.6 12.0 - 15.8 g/dL 01/04/2025 7:40 PM CDT [facility] HEMATOCRIT (HCT) 38.5 36.0 - 47.0 % 01/04/2025 7:40 PM CDT [facility] MCV 86.3 82.0 - 96.0 fL 01/04/2025 7:40 PM CDT [facility] MCH 28.3 26.0 - 34.0 pg 01/04/2025 7:40 PM CDT [facility] MCHC 32.7 31.0 - 36.0 g/dL 01/04/2025 7:40 PM CDT [facility] PLATELET COUNT 347 140 - 440 10(3)/[facility] 01/04/2025 7:40 PM CDT [facility] RDW 13.5 11.8 - 15.5 % 01/04/2025 7:40 PM CDT [facility] MPV 9.8 9.7 - 12.4 fL 01/04/2025 7:40 PM CDT [facility] NEUTROPHILS 62.7 47.0 - 73.0 % 01/04/2025 7:40 PM CDT [facility] LYMPHOCYTES 28.6 18.0 - 42.0 % 01/04/2025 7:40 PM CDT [facility] MONOCYTES 6.7 4.0 - 12.0 % 01/04/2025 7:40 PM CDT [facility] EOSINOPHILS 1.0 0.0 - 5.0 % 01/04/2025 7:40 PM CDT [facility] BASOPHILS 0.5 0.0 - 1.0 % 01/04/2025 7:40 PM CDT [facility] IMMATURE GRANULOCYTE 0.5(H) 0.0 - 0.4 % 01/04/2025 7:40 PM CDT [facility] Comment:Immature Granulocyte s includes Metamyelocytes, Myelocytes, and Promyelocytes. ABSOLUTE NEUTROPHILS 5.03 1.60 - 7.70 10(3)/[facility] 01/04/2025 7:40 PM CDT [facility] ABSOLUTE LYMPHOCYTES 2.30 1.30 - 3.20 10(3)/[facility] 01/04/2025 7:40 PM CDT [facility] ABSOLUTE MONOCYTES 0.54 0.20 - 1.00 10(3)/[facility] 01/04/2025 7:40 PM CDT [facility] ABSOLUTE EOSINOPHIL 0.08 0.00 - 0.40 10(3)/[facility] 01/04/2025 7:40 PM CDT [facility] ABSOLUTE BASOPHILS 0.04 0.00 - 0.10 10(3)/[facility] 01/04/2025 7:40 PM CDT [facility] ABSOLUTE IMMATURE GRANULOCYTE 0.04(H) 0.00 - 0.03 10 (3) mcL. 01/04/2025 7:40 PM CDT [facility] NRBC PER 100 WBC 0 01/05/20 7:40 PM CDT [facility] Blood Venipuncture / Unknown 01/04/2025 7:21 PM CDT 01/04/2025 7:37 PM CDT Tristan Gardiner MD HEMATOLOGY ORDERABLES Fin al Result Performing Organization Address City/[facility]/ZIP Co de Phone Number [facility] [address] [place] [address] * LIPASE (01/04/2025 7:21 PM CDT) LIPASE 19 8 - 78 U/L 01/04/2025 7:59 PM CDT [facility] Blood Venipuncture / Unknown 01/04/2025 7:21 PM CDT 01/04/2025 7:37 PM CDT Tristan Gardiner MD CHEMISTRY ORDERABLES Odalys l Result Performing Organization Address City/[facility] Co de Phone Number [facility] [address] [place] [address] * (ABNORMAL) CMP (COMPREHENSIVE METABOLIC PANEL) (01/04/2025 7:21 PM CDT) Only the most recent of2 resultswithin the time period is included. SODIUM 139 136 - 145 mmol/L 01/04/2025 7:59 PM CDT [facility] POTASSIUM 3.4(L) 3.5 - 5.1 mmol/L 01/04/2025 7:59 PM CDT [facility] CHLORIDE 107 98 - 107 mmol/L 01/04/2025 7:59 PM CDT [facility] CO2, VENOUS 22 22 - 30 mmol/L 01/04/2025 7:59 PM CDT [facility] ANION GAP 13.4 <18.0 mmol/L 01/04/2025 7:59 PM CDT [facility] GLUCOSE 135(H) 70 - 99 mg/dL 01/04/2025 7:59 PM CDT [facility] BUN 12 5 - 18 mg/dL 01/04/2025 7:59 PM CDT [facility] CREATININE, BLOOD 0.72 0.60 - 1.00 mg/dL 01/04/2025 7:59 PM CDT [facility] BUN/CREATININE RATIO 17 12 - 20 ratio 01/04/2025 7:59 PM CDT [facility] TOTAL PROTEIN 7.9 6.0 - 8.0 g/dL 01/04/2025 7:59 PM CDT [facility] ALBUMIN 4.4 3.5 - 5.0 g/dL 01/04/2025 7:59 PM CDT [facility] A/G RATIO 1.3 1.0 - 2.2 01/04/2025 7:59 PM CDT [facility] CALCIUM 9.3 8.7 - 10.5 mg/dL 01/04/2025 7:59 PM CDT [facility] T BILI 0.3 0.2 - 1.2 mg/dL 01/04/2025 7:59 PM CDT [facility] SGOT (AST) 52(H) <43 U/L 01/04/2025 7:59 PM CDT [facility] SGPT (ALT) 59(H) <56 U/L 01/04/2025 7:59 PM CDT [facility] ALKALINE PHOSPHATASE 82 40 - 150 U/L 01/04/2025 7:59 PM CDT [facility] GFR, ESTIMATED >60 >=60 01/04/2025 7:59 PM CDT [facility] Comment: Creatinine Clearance is the preferred criteria for selecting drug dose adjustments in renally impaired patients. The GFR is provided as additional pertinent clinical information. GFR is reported in mL/min/1.73 sq m. Calculation based on the Chronic Kidney Disease Epidemiology Collaboration (CKD- EPI) equation refit without adjustment for race. GFR, EST. >60 >=60 025 7:59 PM CDT [facility] GFR, EST. NONAFRICAN >60 >=60 01/04/2025 7:59 PM CDT [facility] Blood Venipuncture / Unknown 01/04/2025 7:21 PM CDT 01/04/2025 7:37 PM CDT us Tristan Gardiner MD CHEMISTRY ORDERABLES Odalys l Result [facility] [address] [place] [address] * XR CHEST 2 VIEWS (11/23/2024 12:01 PM CDT) Anatomical Region Laterality Modality Chest N/A Digital Radiogra phy 11/23/2024 1:15 PM CDT Impressions 11/23/2024 1:18 PM CDT IMPRESSION: No acute cardiopulmonary abnormality. Narrative 11/23/2024 1:18 PM CDT EXAM DESCRIPTION: XR CHEST 2 VIEWS REASON FOR STUDY: CP x today. TECHNIQUE: PA and lateral radiographic view(s) of the chest. COMPARISON: 03/31/2024 FINDINGS: LUNGS: No focal consolidation within either lung. No effusion or pneumothorax. HEART/MEDIASTINUM: Cardiac silhouette and mediastinal contours are within normal limits. LINES/TUBES: None. BONES: No acute osseous abnormality. THIS IS AN ELECTRONICALLY VERIFIED FINAL REPORT 11/23/2024 1:15 PM - Electronically signed by Jennifer Gaspar M.D. TW: MOHINI Report ID: [id number] Reading Location: [id number] Procedure Note Jennifer Gaspar MD - 11/23/2024 EXAM DESCRIPTION: XR CHEST 2 VIEWS REASON FOR STUDY: CP x today. TECHNIQUE: PA and lateral radiographic view(s) of the chest. COMPARISON: 03/31/2024 FINDINGS: LUNGS: No focal consolidation within either lung. No effusion or pneumothorax. HEART/MEDIASTINUM: Cardiac silhouette and mediastinal contours are within normal limits. LINES/TUBES: None. BONES: No acute osseous abnormality. THIS IS AN ELECTRONICALLY VERIFIED FINAL REPORT 11/23/2024 1:15 PM - Electronically signed by Jennifer Gaspar M.D. TW: MOHINI Report ID: [id number] Reading Location: [id number] IMPRESSION: No acute cardiopulmonary abnormality. us Nadir Veloz [facility] IMG DIAGNOSTIC ORDER MARY Final Result * EKG 12 LEAD (11/23/2024 11:24 AM CDT) Ventricular Rate 80 BPM EXTERNAL EKG Atrial Rate 80 BPM EXTERNAL EKG P-R Interval 150 ms EXTERNAL EKG QRS Duration 88 ms EXTERNAL EKG Q-T Duration 388 ms EXTERNAL EKG QTC CALCULATION 447 ms EXTERNAL EKG P Higginson 26 degrees EXTERNAL EKG R Higginson 19 degrees EXTERNAL EKG T Higginson 11 degrees EXTERNAL EKG 11/23/2024 11:2 4 AM CDT Impressions EXTERNAL EKG - 11/23/2024 10:27 PM CDT Normal sinus rhythm with sinus arrhythmia Low voltage QRS Borderline ECG When compared with ECG of 23-MAY-2024 18:31, No significant change was found Confirmed by KARMA FERRARO ([id number]) on 11/23/2024 10:27:45 PM Narrative Procedure Note Karma Ferraro MD - 11/23/2024 IMPRESSION: Normal sinus rhythm with sinus arrhythmia Low voltage QRS Borderline ECG When compared with ECG of 23-MAY-2024 18:31, No significant change was found Confirmed by KARMA FERRARO ([id number]) on 11/23/2024 10:27:45 PM us Tristan Gardiner MD IMG ECG ORDERABLES Final Result Performing Organization Address City/[facility] Co de Phone Number EXTERNAL EKG * TROPONIN I, HIGH SENSITIVITY (HSTRP) (11/23/2024 11:14 AM CDT) TROPONIN I, HIGH SENSITIVITY- RODRIGUEZ <3 <=14 ng/L 11/23/2024 12:42 PM CDT [facility] Comment: High-sensitivity troponin I results are reported in ng/L making the result appear to be 1,000 times higher than the contemporary troponin I value which is reported in ng/ml. Results from [facility]. Blood Venipuncture / Unknown 11/23/2024 11:14 AM CDT 11/23/2024 12:15 PM CDT Nadir Veloz PAC CHEMISTRY ORDERABLES Final Result Performing Organization Address [facility] de Phone Number [facility] [place] [address] * MAGNESIUM (MG) (11/23/2024 11:14 AM CDT) [facility] MAGNESIUM 2.0 1.6 - 2.6 mg/dL 11/23/2024 12:39 PM CDT [facility] Blood Venipuncture / Unknown 11/23/2024 11:14 AM CDT 11/23/2024 12:15 PM CDT Nadir Veloz PAC CHEMISTRY ORDERABLES Final Result Performing Organization Address [facility] Co de Phone Number [facility] [place] [address] * EKG SCAN (11/23/2024 12:00 AM CDT) 11/23/2024 Provider Scan IMG ECG ORDERABLES Final Result Performing Organization Address City/[facility] Co de Phone Number RESULTING AGENCY from Last 3 Months Insurance MEDICAID [employer] Care Teams Fretted Instrument Repairer Relationship Specialty Start Date End Date Chaparro Harris MD [address] [place] [address] PCP - General Family Medicine 01/04/25
[2025-02-20 17:41] LABS: Hematocrit 36.0 % (37.0-47.0); Hemoglobin 11.3 g/dL (12.0-15.0); Immature Granulocyte Percent A 0.8 % (0-0.5); Lymphocytes Absolute Auto 1.91 K/mm3 (0.9-3.2); Mean Corpuscular HGB Conc 31.4 g/dl (32-36); Mean Corpuscular Hemoglobin 26.2 pg (26-34); Mean Corpuscular Volume 83.3 fl (80-100); Nucleated Red Blood Cells Absolute Auto 0.000 K/mm3 (0.0-0.012); Nucleated Red Blood Cells Perc 0.0 % (0.0-0.2); Platelet Count Result 328 k/mm3 (150-375); Red Blood Count 4.32 M/mm3 (4.2-5.4); White Blood Count 6.3 K/mm3 (4.5-10.0)
[2025-02-20 18:18] LABS: Anion Gap 10 mmol/L (4-12); Blood Urea Nitrogen 14 mg/dL (7-17); Calcium 9.6 mg/dL (8.4-10.2); Carbon Dioxide 23 mmol/L (22-30); Chloride 105 mmol/L (98-107); Estimated Glomerular Filt Rate > 60; Glucose 149 mg/dL (65-110); Potassium 3.8 mmol/L (3.4-5.0); Sodium 138 mmol/L (137-145)
[2025-02-20 18:20] LABS: Iron 31 ug/dL (37-170)
[2025-02-20 18:28] LABS: Syphilis IgG/IgM Antibody Non-Reactive (Nonreactive)
[2025-02-20 18:30] LABS: Hepatitis B Surface Antigen Negative (Negative); Percent Iron Saturation 8 % (20-50)
[2025-02-20 18:36] LABS: HAV RESULT Negative (Negative); Hepatitis B Core IgM Result Negative (Negative)
[2025-02-20 18:39] LABS: HIV 1/2 Ab P24 Ag Result Negative (Negative)
[2025-02-20 18:58] LABS: Ferritin 7.64 ng/mL (6.24-137)
[2025-02-20 19:31] LABS: Vitamin B12 665.0 pg/mL (239-931)
[2025-02-22 07:09] LABS: HSV 1 IgG, Type Spec Reactive (Non Reactive); HSV 2 IgG, Type Spec Non Reactive (Non Reactive)
== END 2025-02-20 17:17 | disposition home or self-care (01) ==
LOC: ANHLAB 17:19
PROVIDERS: PCP Hospitalist; Visit Provider Student in an Organized Health Care Education/Training Program
DX: Z11.3 Encounter for screening for infections with a predominantly sexual mode of transmission (principal); D64.9 Anemia, unspecified
CPT/HCPCS: 36415; 80048; 80074; 82607; 82728; 82746; 83540; 83550; 85025; 86593; 86695; 86696; 86703; G0432